=== PATIENT | female | born 1935 | race Caucasian/White ===

== ENCOUNTER → 2017-07-28 11:07 | Outpatient (CLI) | payer MEDICARE, OTHER, SELFPAY ==
[2017-07-28 11:18] LABS: Bacteria 0 SEEN /hpf (None Seen); Mucous, Urine 0 SEEN /hpf (<or=2+); Red Blood Cells-Urine 0 SEEN /hpf (0-5); White Blood Cells 0 SEEN /hpf (0-5)
[2017-07-28 12:15] LABS: Color, Urine Yellow (Yellow); Glucose, Dipstick Normal (Normal); Ketone-Dipstick Negative (Negative); Leukocyte Esterase-Dipstick 25 /ul (Negative); Nitrite-Dipstick Negative (Negative); Occult Blood-Urine Negative /ul (Negative); Protein-Dipstick Negative (Negative); Urine Bilirubin Dipstick Negative (Negative); Urine Clarity Clear (Clear); Urine Urobilinogen Normal (Normal)
[2017-07-28 12:31] LABS: Squamous Epithelial Cells - UA 0-5 SEEN /hpf (5-10)
[2017-07-28 12:32] LABS: Hemoglobin A1c 5.5 % (4.2-6.3)
[2017-07-28 12:52] LABS: Absolute Lymphocyte Count 3.28 X10^3/ul (0.83-4.51); Absolute Neutrophil Count 4.5 X10^3/uL (2.0-7.7); Basophil# 0.07 X10^3/uL; Basophil% 0.8 % (0-1); Eosinophil# 0.08 X10^3/uL; Eosinophils% 0.9 % (0-5); Hematocrit 37.1 % (37-47); Lymphocyte # 3.28 X10^3/ul (4.0); Mean Corp Hgb Conc 32.3 g/gl (32-36); Mean Corpuscular Hgb 31.3 pg (27.0-32.0); Mean Corpuscular Volume 96.6 fL (81-99); Mean Platelet Vol. 11.5 fl (6.2-12.0); Monocyte# 1.12 X10^3/uL; Monocyte% 12.3 % (0-10); Neutrophil # 4.53 X10^3/uL (2.7-7.7); Neutrophil % 49.8 % (47-70); Platelet Count 313 K/mm3 (150-450); RBC Distribution Width CV 21.3 % (11.6-14.6); RBC Distribution Width SD 76.2 fl (35.1-43.9); Red Blood Count 3.84 M/mm3 (4.2-5.4); White Blood Count 9.1 K/mm3 (4.4-11.0)
[2017-07-28 12:53] LABS: Differential Indicated SCAN CRITERIA MET; POSITIVE COUNT NO; POSITIVE DIFFERENTIAL NO; POSITIVE MORPHOLOGY YES
[2017-07-28 13:05] LABS: ALB/GLOB Ratio 1.5 RATIO (0.9-2.4); AST(SGOT) 14 U/L (15-37); Alanine Aminotransfer ALT/SGPT 21 U/L (13-56); Albumin, Serum 4.2 g/dL (3.2-5.0); Alkaline Phosphatase 85 U/L (45-117); Anion Gap 8 (5-15); BUN 12 mg/dL (7-18); BUN/Creat Ratio 20.7 RATIO (10-20); Calcium,Total 9.1 mg/dL (8.5-10.1); Chloride 104 mmol/L (98-107); Cholesterol 151 mg/dL (200); Creatinine, Serum 0.58 mg/dL (0.55-1.02); EST Glomerular Filtration Rate 106 mL/min (>60); Est Glom Filt Rate - Afr Amer 129 mL/min (>60); Globulin 2.8 g/dL (2.2-4.2); Glucose 96 mg/dL (74-106); High Density Lipoprotein 65 mg/dL; Potassium 3.8 mmol/L (3.5-5.1); Sodium Level 139 mmol/L (136-145); T4 Free Direct 1.34 ng/dL (0.76-1.46); Thyroid Stim Hormone (TSH) 2.52 uIU/mL (0.358-3.74); Triglycerides 64 mg/dL; Very Low Density Lipoprotein 13 mg/dL (5-40)
[2017-07-28 13:08] LABS: Anisocytosis 1+
[2017-07-28 14:30] LABS: Bilirubin, Direct 0.28 mg/dL (0.00-0.30)
== END ==
PROVIDERS: Visit Provider Family Medicine
DX: Z13.220 Encounter for screening for lipoid disorders (principal); E80.6 Other disorders of bilirubin metabolism; I10 Essential (primary) hypertension; E04.1 Nontoxic single thyroid nodule; R73.02 Impaired glucose tolerance (oral)
CPT/HCPCS: 36415; 80053; 80061; 81001; 82247; 82248; 83036; 84439; 84443; 85025

== ENCOUNTER → 2017-08-02 09:43 | Outpatient (CLI) | payer MEDICARE, OTHER, SELFPAY ==
--- NOTE | 2017-08-02 10:07 | US_ITS ---
US Thyroid (eg thyroid, parathyroid, parotid) INDICATION: NODULE COMPARISON: None TECHNIQUE: Ultrasonographic grayscale and Doppler investigation of the thyroid gland FINDINGS: The right lobe measures 4.4 x 1.7 x 1.4 cm. There is a 2.3 x 1.3 x 1.6 cm partially solid partially cystic nodule seen in the midpole region of the right lobe. The isthmus measures 1.5 mm in thickness and is unremarkable. The left lobe of the thyroid measures 3.9 x 1 x 0.8 cm and contains a 3 mm partially cystic partially solid nodule in the central portion. No abnormal calcifications are seen. US/Thyroid IMPRESSION: Bilateral thyroid nodules, right thyroid nodule is partially cystic partially solid and measures 2.3 x 1.3 x 1.6 cm. Left thyroid nodule is partially cystic and partially solid and measures 3 mm in diameter. Nuclear medicine thyroid uptake scan may be helpful for further evaluation of the right thyroid nodule. at 2007 Reported and signed by: Mayra Fuentes MD Electronically Signed: Mayra Fuentes MD at 19:05 EST Tel , Service support ,
--- NOTE | 2017-08-02 10:08 | HPBD_ITS ---
STUDY: DUAL ENERGY X-RAY ABSORPTIOMETRY / DXA REASON FOR EXAM: Female, 82 years old. The patient is postmenopausal. Loss of height. TECHNIQUE: Bone Mineral Density (BMD) measurements of lumbar spine and bilateral hips were obtained. COMPARISON: Comparison is made with prior study dated November 10, 2000. FINDINGS: Lumbar Spine (L1-L4): g/cm2 (1.378) / T-score (1.7) / Z-score (3.5) Findings are suggestive of normal bone density with a low fracture risk. Left Femur Total: g/cm2 (0.899) / T-score (-0.9) / Z-score (1.1) Left Femoral Neck: g/cm2 (0.801) / T-score (-1.7) / Z-score (0.4) Right Femur Total: g/cm2 (0.906) / T-score (-0.8) / Z-score (1.2) Right Femoral Neck: g/cm2 (0.87 to) / T-score (-1.2) / Z-score (1.0) The T-Scores on the most recent prior examination were: Lumbar Spine (L1-L4): There has been worsening of bone density since the previous examination. Left Femur Total: which represents a worsening of 16.5%. HPBD/Dexa Bone Density Study (HP) IMPRESSION: The patient is considered osteopenic as outlined below according to World [place] Organization (WHO) criteria with a moderate fracture risk. There has been worsening of bone density since the previous examination. Reference Information: The T-score is the number of standard deviations above or below the standard which is normal for young adults at their peak bone mineral density. The World Health Organization (WHO) interprets the T-scores as follows: Above -1 Normal bone density Between -1 and -2.5 Osteopenia Equal to / or below -2.5 Osteoporosis As a practical clinical guideline, osteopenia may be graded as follows: Mild -1 through -1.5 Moderate -1.6 through -2.0 Severe -2.1 through -2.4 The Z-score is the number of standard deviations above or below age-matched controls. A Z-score of less than -1.5 would be considered abnormal. References: 1. NIH Osteoporosis and Related Bone Diseases http://www.osteo.org 2. International Society for Clinical Densitometry http://www.iscd.org 3. National Osteoporosis Foundation http://www.nof.org Electronically Signed: Kevin Law MD at 11:01 EST Tel [phone], Service support ,
== END ==
PROVIDERS: Family Provider Family Medicine; PCP Family Medicine; Visit Provider Family Medicine
DX: M85.80 Other specified disorders of bone density and structure, unspecified site (principal); Z78.0 Asymptomatic menopausal state; E04.1 Nontoxic single thyroid nodule
CPT/HCPCS: 76536; 77080

== ENCOUNTER → 2017-08-18 12:43 | Outpatient (CLI) | payer MEDICARE, OTHER, SELFPAY ==
--- NOTE | 2017-08-18 12:47 | ECHOD_ITS ---
Reason For Study: MURMUR Procedure This was a 2D Doppler, Color Flow transthoracic echocardiogram. Exam performed in department. Left Ventricle Normal size and thickness. The estimated ejection fraction is 65 %. Stage 2 diastolic dysfunction. No regional wall motion abnormalities noted. Right Ventricle Normal size and thickness. Normal systolic function. Atria The left atrium is moderately enlarged. Normal right atrium. Normal atrial septum. Mitral Valve Mild diffuse mitral valve thickening. Mild (1+) mitral valve insufficiency. Tricuspid Valve Normal tricuspid valve. Mild (1+) tricuspid valve insufficiency. Right ventricular systolic pressure estimated to be 47 mmHg. Moderate pulmonary hypertension. Aortic Valve Trisinus/trileaflet aortic valve. Mild diffuse aortic valve thickening. Pulmonic Valve Normal pulmonic valve. Trivial pulmonic valve insufficiency. Great Vessels Normal aortic root. Normal arch. Normal inferior vena cava. Inferior vena cava collapse with sniff. Pericardium/Pleural No pericardial effusion. MMode/2D Measurements & Calculations LVIDd: 4.9 cm IVSd: 0.93 cm LVOT diam: 2.0 cm LVIDs: 3.1 cm LVPWd: 0.98 cm LVOT area: 3.1 cm2 RVDd: 3.5 cm FS: 35.9 % LA dimension: 3.6 cm LAV(MOD-bp): 83.8 ml LA A4 area: 24.3 cm2 LAV(MOD-bp) Indexed: 45.8 ml/m2 LAV(MOD-sp2): 81.9 ml LAV(MOD-sp4): 81.7 ml RA A4 area: 16.3 cm2 Time Measurements MV dec time: 0.18 sec Doppler Measurements & Calculations MV E max satish: 126.7 cm/sec Lat Peak E' Satish: 8.2 cm/sec Med Peak E' Satish: 10.3 cm/sec MV A max satish: 81.7 cm/sec E/E' lat: 15.5 E/E' med: 12.3 MV E/A: 1.6 Ao V2 max: 156.0 cm/sec LV V1 max: 140.5 cm/sec PA V2 max: 97.1 cm/sec Ao max P.7 mmHg LV V1 max P.9 mmHg AGNIESZKA(V,D): 2.8 cm2 PI dec slope: 133.3 cm/sec2 TR max satish: 319.6 cm/sec TR max P.9 mmHg Interpretation Summary The estimated ejection fraction is 65 %. Stage 2 diastolic dysfunction. The left atrium is moderately enlarged. Mild (1+) mitral valve insufficiency. Mild (1+) tricuspid valve insufficiency. Right ventricular systolic pressure estimated to be 47 mmHg. Moderate pulmonary hypertension. There is no comparison study available. Ordering Physician: Blue Lambert Referring Physician: Blue Lambert Performed By: Cecilia Dorantes RDCS, RVT
== END ==
PROVIDERS: Family Provider Family Medicine; PCP Family Medicine; Visit Provider Family Medicine
DX: R01.1 Cardiac murmur, unspecified (principal); E04.1 Nontoxic single thyroid nodule; M85.80 Other specified disorders of bone density and structure, unspecified site
CPT/HCPCS: 93306

== ENCOUNTER → 2017-08-24 18:45 | Outpatient (CLI) | payer MEDICARE, OTHER, SELFPAY ==
--- NOTE | 2017-08-24 10:00 | FLU_PTH ---
PATIENT: ANANTH DAVE LOC: [facility] U#:[id number] AGE/SX: 89/F ROOM: RE08/24/[address]: Dr. Agustin Epstein MD : [id number] BED: DIS: SPEC #: [id number] RECD: 08/24/17 17:51 STATUS: LUZMA HUMBERTO #: [id number] DEUCE: 08/24/17 10:[address]: Agustin Epstein DEPT: CYTOLOGY RECD BY: Peterson Busch ENTERED: 08/25/17 09:22 SP TYPE: Fluid OTHR DR: Dr. Blue Lambert MD Tissues: A - Thyroid gland, NOS B - Thyroid gland, NOS Procedures: Pap Stain (control) Special Stain Group II Surgery Specimen Level IV Cell Block Cytospin Fluid Cytology Other HEADER OPERATION: Right thyroid FNA PRE-OP DIAGNOSIS: Right thyroid nodule TISSUE SUBMITTED: A - Right thyroid FNA, fluid for cytology, B ? Slides (4) DIAGNOSIS CYTOLOGY A. Right thyroid nodule fluid for cytology (Cytospin and Cytoblock). Rare benign follicular cells and macrophages are noted. Bloody specimen. B. Right thyroid nodule, FNA (smear): Consistent with benign follicular nodule. See cytology study and comment. SALOME:jaison 08/26/17 COMMENT Correlation with clinical, radiologic findings and appropriate followup are necessary. CYTOLOGY STUDY Slides are reviewed. The specimen is adequate for evaluation. The specimen consists of benign follicular cells. Significant amount of colloid is not seen. CYTOLOGY GROSS A - Received is 2 ml of thick, cloudy, red fluid labeled with the patient's name and and designated per the requisition as right thyroid. Submitted for cytology preparation including cell block. B - Received are four smears labeled with the patient's name and designated per the requisition as right thyroid. Submitted for staining. / 08/25/17 TC: 5 CPT: 08492, 69346, 67235
== END ==
PROVIDERS: Family Provider Family Medicine; PCP Family Medicine; Visit Provider Surgery
DX: E04.1 Nontoxic single thyroid nodule (principal)
CPT/HCPCS: 88108; 88161; 88305; 88313

== ENCOUNTER → 2018-01-13 08:10 | Outpatient (CLI) | payer MEDICARE, OTHER, SELFPAY ==
[2018-01-13 10:43] LABS: Hematocrit 34.5 % (37-47); Hemoglobin 11.6 g/dl (12.0-15.0); Mean Corp Hgb Conc 33.6 g/gl (32-36); Mean Corpuscular Hgb 32.5 pg (27.0-32.0); Mean Corpuscular Volume 96.6 fL (81-99); Mean Platelet Vol. 11.8 fl (6.2-12.0); Platelet Count 289 K/mm3 (150-450); RBC Distribution Width CV 22.1 % (11.6-14.6); RBC Distribution Width SD 77.5 fl (35.1-43.9); Red Blood Count 3.57 M/mm3 (4.2-5.4); White Blood Count 7.6 K/mm3 (4.4-11.0)
[2018-01-13 10:49] LABS: Scan Indicated on CBC? Y/N YES- FLAGS NOTED
[2018-01-13 10:56] LABS: ALB/GLOB Ratio 1.4 RATIO (0.9-2.4); AST(SGOT) 14 U/L (15-37); Alanine Aminotransfer ALT/SGPT 25 U/L (13-56); Albumin, Serum 3.9 g/dL (3.2-5.0); Alkaline Phosphatase 66 U/L (45-117); Anion Gap 6 (5-15); BUN 12 mg/dL (7-18); BUN/Creat Ratio 17.8 RATIO (10-20); Bilirubin, Direct 0.42 mg/dL (0.00-0.30); Calcium,Total 8.8 mg/dL (8.5-10.1); Chloride 106 mmol/L (98-107); Creatinine, Serum 0.68 mg/dL (0.55-1.02); EST Glomerular Filtration Rate 89 mL/min (>60); Est Glom Filt Rate - Afr Amer 108 mL/min (>60); Globulin 2.7 g/dL (2.2-4.2); Glucose 119 mg/dL (74-106); Magnesium 2.4 mg/dL (1.6-2.6); Protein, Total 6.6 g/dL (6.4-8.2); Sodium Level 141 mmol/L (136-145); Thyroid Stim Hormone (TSH) 3.64 uIU/mL (0.358-3.74)
== END ==
PROVIDERS: Family Provider Family Medicine; PCP Family Medicine; Visit Provider Family Medicine
DX: E04.2 Nontoxic multinodular goiter (principal); I10 Essential (primary) hypertension; E80.6 Other disorders of bilirubin metabolism
CPT/HCPCS: 36415; 80053; 82248; 83735; 84443; 85027

== ENCOUNTER → 2018-01-17 15:10 | Outpatient (CLI) | payer MEDICARE, OTHER, SELFPAY ==
[2018-01-17 17:41] LABS: Absolute Lymphocyte Count 4.47 X10^3/ul (0.83-4.51); Absolute Neutrophil Count 6.5 X10^3/uL (2.0-7.7); Basophil# 0.06 X10^3/uL; Basophil% 0.5 % (0-1); Eosinophil# 0.18 X10^3/uL; Eosinophils% 1.4 % (0-5); Hematocrit 33.5 % (37-47); Hemoglobin 11.2 g/dl (12.0-15.0); Lymphocyte # 4.47 X10^3/ul (4.0); Mean Corp Hgb Conc 33.4 g/gl (32-36); Mean Corpuscular Hgb 32.3 pg (27.0-32.0); Mean Corpuscular Volume 96.5 fL (81-99); Mean Platelet Vol. 11.8 fl (6.2-12.0); Monocyte# 1.56 X10^3/uL; Monocyte% 12.2 % (0-10); Neutrophil # 6.47 X10^3/uL (2.7-7.7); Neutrophil % 50.6 % (47-70); Platelet Count 291 K/mm3 (150-450); RBC Distribution Width CV 21.8 % (11.6-14.6); RBC Distribution Width SD 76.5 fl (35.1-43.9); Red Blood Count 3.47 M/mm3 (4.2-5.4); White Blood Count 12.8 K/mm3 (4.4-11.0)
[2018-01-17 17:42] LABS: Differential Indicated SCAN CRITERIA MET; POSITIVE COUNT NO; POSITIVE DIFFERENTIAL YES; POSITIVE MORPHOLOGY YES
[2018-01-17 17:59] LABS: Hemoglobin A1c 5.3 % (4.2-6.3)
[2018-01-17 18:03] LABS: AST(SGOT) 14 U/L (15-37); Alanine Aminotransfer ALT/SGPT 25 U/L (13-56); Alkaline Phosphatase 82 U/L (45-117); Ferritin 146 ng/mL (8-252); Globulin 2.7 g/dL (2.2-4.2); Iron Binding Capacity,Total 271 ug/dL (250-450); Protein, Total 6.7 g/dL (6.4-8.2)
[2018-01-17 18:05] LABS: Differential Comment SCANNED
[2018-01-18 09:04] LABS: Vitamin B12 263 pg/mL (211-911)
== END ==
PROVIDERS: Family Provider Family Medicine; PCP Family Medicine; Visit Provider Family Medicine
DX: D64.9 Anemia, unspecified (principal); E80.6 Other disorders of bilirubin metabolism; R73.09 Other abnormal glucose
CPT/HCPCS: 36415; 80076; 82607; 82728; 82746; 83036; 83550; 85025

== ENCOUNTER → 2018-05-12 08:54 | Outpatient (CLI) | payer MEDICARE, OTHER, SELFPAY ==
[2018-05-12 10:19] LABS: Absolute Lymphocyte Count 2.74 X10^3/ul (0.83-4.51); Absolute Neutrophil Count 4.2 X10^3/uL (2.0-7.7); Basophil# 0.05 X10^3/uL; Basophil% 0.6 % (0-1); Eosinophil# 0.08 X10^3/uL; Hematocrit 36.2 % (37-47); Hemoglobin 11.9 g/dl (12.0-15.0); Lymphocyte # 2.74 X10^3/ul (4.0); Mean Corp Hgb Conc 32.9 g/gl (32-36); Mean Corpuscular Hgb 31.6 pg (27.0-32.0); Mean Corpuscular Volume 96.3 fL (81-99); Mean Platelet Vol. 11.4 fl (6.2-12.0); Monocyte# 1.03 X10^3/uL; Monocyte% 12.8 % (0-10); Neutrophil # 4.15 X10^3/uL (2.7-7.7); Neutrophil % 51.5 % (47-70); Platelet Count 327 K/mm3 (150-450); RBC Distribution Width CV 21.8 % (11.6-14.6); RBC Distribution Width SD 78.6 fl (35.1-43.9); Red Blood Count 3.76 M/mm3 (4.2-5.4); White Blood Count 8.1 K/mm3 (4.4-11.0)
[2018-05-12 10:20] LABS: Differential Indicated SCAN CRITERIA MET; POSITIVE COUNT NO; POSITIVE DIFFERENTIAL NO; POSITIVE MORPHOLOGY YES
[2018-05-12 10:41] LABS: Vitamin D,25 Hydroxy 33.6 ng/mL (29.95-100.01)
[2018-05-12 10:50] LABS: Anisocytosis 2+; Differential Comment SCANNED; Hypochromasia 1+; Macrocytosis 1+; Microcytosis 1+; Target Cells 1+
[2018-05-12 10:56] LABS: AST(SGOT) 13 U/L (15-37); Alanine Aminotransfer ALT/SGPT 23 U/L (13-56); Alkaline Phosphatase 73 U/L (45-117); Anion Gap 10 (5-15); BUN 13 mg/dL (7-18); BUN/Creat Ratio 20.8 RATIO (10-20); Bilirubin, Direct 0.41 mg/dL (0.00-0.30); Chloride 107 mmol/L (98-107); Creatinine, Serum 0.62 mg/dL (0.55-1.02); EST Glomerular Filtration Rate 97 mL/min (>60); Est Glom Filt Rate - Afr Amer 118 mL/min (>60); Globulin 2.7 g/dL (2.2-4.2); Glucose 121 mg/dL (74-106); Potassium 3.9 mmol/L (3.5-5.1); Protein, Total 6.7 g/dL (6.4-8.2); Sodium Level 142 mmol/L (136-145)
--- OUTSIDE RECORDS SUMMARY | 2018-06-27 22:03 | XMS RPT_ITS ---
:1935 Author Organization OHIP Support Name Relationship Address Phone R Unavailable Unavailable Unavailable SONAL, CRISTI Unavailable [address] + [place] [address] R Unavailable Unavailable Unavailable SONAL, CRISTI Unavailable [address] + [place] [address] R Unavailable Unavailable Unavailable SONAL, CRISTI Unavailable [address] + [place] [address] R Unavailable Unavailable Unavailable SONAL, CRISTI Unavailable [address] + [place] [address] R Unavailable Unavailable Unavailable SONAL, CRISTI Unavailable [address] + [place] [address] R Unavailable Unavailable Unavailable SONAL, CRISTI Unavailable [address] + [place] [address] R Unavailable Unavailable Unavailable SONAL, CRISTI Unavailable [address] + [place] [address] R Unavailable Unavailable Unavailable SONAL, CRISTI Unavailable [address] + [place] [address] R Unavailable Unavailable Unavailable SONAL, CRISTI Unavailable [address] + [place] [address] CHARLEE DAVE Unavailable [address] + [place] [address] R Unavailable Unavailable Unavailable SONAL, CRISTI Unavailable [address] + [place] [address] Care Team Providers Name Role Phone Blue Lambert Attending Unavailable Blue Lambert Primary Care Unavailable Blue Lambert Attending Unavailable Blue Lambert Attending Unavailable SchBlue ro Primary Care Unavailable TeteAgustin Attending Unavailable SchinBlue lópez Referring Unavailable SchinBlue lópez Primary Care Unavailable SchBlue ro Attending Unavailable SchBlue ro Referring Unavailable SchBlue ro Primary Care Unavailable Cebul, Agustin Attending Unavailable Schinrene, Blue E Referring Unavailable SchBlue ro Primary Care Unavailable Cebul, Agustin Attending Unavailable SchBlue ro Primary Care Unavailable CeAgustin draper Referring Unavailable Douglas Vera Attending Unavailable SchinBlue lópez Referring Unavailable SchinBlue lópez Attending Unavailable SchinBlue lópez Primary Care Unavailable SchBlue ro Attending Unavailable Schinrene, Blue Jacques Primary Care Unavailable PROBLEMS PROBLEMS DATE TYPE CONDITION / CODE ATTENDING STATUS SOURCE 08/24/2017 Unknown E04.1 - Nontoxic Tete Agustin Active [place] single thyroid [facility] nodule / Hospital E04.1(ICD-10) Repository 09/19/2017 Unknown R01.1 - Cardiac Douglas Vera Active [place] murmur, Community unspecified / Hospital R01.1(ICD-10) Repository 08/04/2017 Unknown 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 - Other Blue Lambert [place] 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 and Repository structure, unspecified site / M85.80(ICD-10) PROCEDURES PROCEDURES No Procedure Records FoundRESULTS RESULTS CBC W/DIFF, AUTOMATED Collected: 05/12/2018 Status: F Source: [place] [facility] TYPE CODE TESTS RESULT OUT OF RANGE REFERENCE UNITS LAB L100.1000 4.4-11.0 K/mm3 Normal WBC 8.1 LAB L100.1200 4.2-5.4 M/mm3 Low RBC 3.76 LAB L100.1300 12.0-15.0 g/dl Low HGB 11.9 LAB L100.1400 37-47 % Low HCT 36.2 LAB L100.1500 81-99 fL Normal MCV 96.3 LAB L100.1600 27.0-32.0 pg Normal MCH 31.6 LAB L100.1700 32-36 g/gl Normal MCHC 32.9 LAB L100.1810 11.6-14.6 % High RDW CV 21.8 LAB L100.1820 35.1-43.9 fl High RDW SD 78.6 LAB L100.1900 150-450 K/mm3 Normal PLT 327 LAB L100.2000 6.2-12.0 fl Normal MPV 11.4 LAB L100.2100 47-70 % Normal NEUT% 51.5 LAB L100.2200 19-41 % Normal LY% 34.0 LAB L100.2300 0-10 % High MONO% 12.8 LAB L100.2400 0-5 % Normal EO% 1.0 LAB L100.2500 0-1 % Normal BASO% 0.6 LAB L100.2550 0.0-0.9 % Normal IM GRAN % 0.100 Result Comment: IG% - Immature Granulocytes (promyelocytes, myelocytes and metamyelocytes) > 1% indicates that a LEFT SHIFT is Present. LAB L100.2620 2.0-7.7 X10 3/uL Absolute Neut Normal 4.2 LAB L100.2720 0.83-4.51 X10 3/ul Absolute Lymph Normal 2.74 LAB L100.4500 SMEAR COMMENT Normal SCANNED LAB L100.7300 ANISO Normal 2+ LAB L100.7600 HYPOCHROMASIA Normal 1+ LAB L100.7700 MICROCYTES Normal 1+ LAB L100.7800 MACROCYTE Normal 1+ LAB L100.8600 TARGET CELLS Normal 1+ Performed By: #### L100.0100 #### [facility] [address] [place], [place], [address] VITAMIN D,25 HYDROXY Collected: 05/12/2018 Status: F Source: [place] 8:56 AM [facility] REPOSITORY TYPE CODE TESTS RESULT OUT OF RANGE REFERENCE UNITS LAB L506.1000 29.95-100.01 ng/mL Normal Vitamin D 33.6 25-OH Result Comment: Vitamin D 25(OH) Status Range Deficiency <20 ng/mL (50nmol/L) Insuffciency 20 - 30 ng/mL (50 - 75 nmol/L) Sufficiency 30 - 100 ng/mL (75 - 250 nmol/L) Toxicity >100 ng/mL (>250 nmol/L) Performed By: #### L506.1000 #### [facility] [address] [place], [place], [address] BASIC METABOLIC Collected: 05/12/2018 Status: F Source: [place] PROFILE (BMP) 8:56 AM [facility] REPOSITORY TYPE CODE TESTS RESULT OUT OF RANGE REFERENCE UNITS LAB L501.0100 74-106 mg/dL High GLU 121 Result Comment: Fasting Glucose result from 100 to 125 mg/dL suggests IMPAIRED HOMEOSTASIS per A.D.A. criteria. Please note revised GLUCOSE reference range effective 2017. LAB L501.1000 7-18 mg/dL Normal BUN 13 LAB L501.1100 0.55-1.02 mg/dL Normal CREAT,SERUM 0.62 Result Comment: The validity of the calculated GFR AND GFRAA in patients over 70 years has not been determined. Clinical correlation is essential. LAB L501.1110 >60 mL/min Normal EST GFR 97 Result Comment: Non- GFR Calc LAB L501.1115 >60 mL/min Normal EST GFR - AA 118 Result Comment: GFR Calc LAB L501.1300 10-20 RATIO High BUN/CRE 20.8 LAB L501.2200 8.5-10.1 mg/dL CA Normal 9.0 LAB L501.5300 136-145 mmol/L NA Normal 142 LAB L501.5600 3.5-5.1 mmol/L K Normal 3.9 LAB L501.5900 98-107 mmol/L CL Normal 107 LAB L501.6100 21.0-32.0 mmol/L Normal CO2 25.0 LAB L501.6200 5-15 Normal GAP 10 Performed By: #### L500.2500, L500.3400 #### [facility] [address] [place], [place] [address]all [facility] [place], [place], [address] LIVER PROFILE Collected: 05/12/2018 Status: F Source: [place] 8:56 AM [facility] REPOSITORY TYPE CODE TESTS RESULT OUT OF RANGE REFERENCE UNITS LAB L501.1500 6.4-8.2 g/dL Normal T PROT 6.7 LAB L501.1800 3.2-5.0 g/dL Normal ALB 4.0 LAB L501.1950 2.2-4.2 g/dL Normal GLOB 2.7 LAB L501.4100 15-37 U/L Low AST 13 LAB L501.4305 45-117 U/L Normal ALK P 73 LAB L501.4405 13-56 U/L Normal ALT 23 LAB L501.4600 0.20-1.00 mg/dL High T BILI 2.90 LAB L501.4700 0.00-0.30 mg/dL High D BILI 0.41 Performed By: #### L500.2500, L500.3400 #### [facility] [address], [address] CBC W/DIFF, AUTOMATED Collected: 01/17/2018 Status: F Source: [place] 3:12 PM [facility] REPOSITORY Order Comment: Order Date: 01/17/18 Order Info: 0184-1 - CBCD TYPE CODE TESTS RESULT OUT OF RANGE REFERENCE UNITS LAB L100.1000 4.4-11.0 K/mm3 High WBC 12.8 LAB L100.1200 4.2-5.4 M/mm3 Low RBC 3.47 LAB L100.1300 12.0-15.0 g/dl Low HGB 11.2 LAB L100.1400 37-47 % Low HCT 33.5 LAB L100.1500 81-99 fL Normal MCV 96.5 LAB L100.1600 27.0-32.0 pg High MCH 32.3 LAB L100.1700 32-36 g/gl Normal MCHC 33.4 LAB L100.1810 11.6-14.6 % High RDW CV 21.8 LAB L100.1820 35.1-43.9 fl High RDW SD 76.5 LAB L100.1900 150-450 K/mm3 Normal PLT 291 LAB L100.2000 6.2-12.0 fl Normal MPV 11.8 LAB L100.2100 47-70 % Normal NEUT% 50.6 LAB L100.2200 19-41 % Normal LY% 35.0 LAB L100.2300 0-10 % High MONO% 12.2 LAB L100.2400 0-5 % Normal EO% 1.4 LAB L100.2500 0-1 % Normal BASO% 0.5 LAB L100.2550 0.0-0.9 % Normal IM GRAN % 0.300 Result Comment: IG% - Immature Granulocytes (promyelocytes, myelocytes and metamyelocytes) > 1% indicates that a LEFT SHIFT is Present. LAB L100.2620 2.0-7.7 X10 3/uL Normal Absolute Neut 6.5 LAB L100.2720 0.83-4.51 X10 3/ul Normal Absolute Lymph 4.47 LAB L100.4500 Normal SMEAR COMMENT SCANNED Result Comment: 1+ ANISOCYTOSIS Performed By: #### L100.0100, L501.9985, L500.3400, L503.6075, L503.6550, L506.0250, L503.0105 #### [facility] [address] [place], [address] HEMOGLOBIN A1C Collected: 01/17/2018 Status: F Source: [place] 3:12 PM [facility] REPOSITORY Order Comment: Order Date: 01/17/18 Order Info: 4548-4 - A1C TYPE CODE TESTS RESULT OUT OF RANGE REFERENCE UNITS LAB L501.9985 4.2-6.3 % Normal HGB A1C 5.3 Performed By: #### L100.0100, L501.9985, L500.3400, L503.6075, L503.6550, L506.0250, L503.0105 #### [facility] [address] [place], [address] LIVER PROFILE Collected: 01/17/2018 Status: F Source: [place] 3:12 PM [facility] REPOSITORY Order Comment: Order Date: 01/17/18 Order Info: 0788-1 - LIVER Order Info: 2500-7 - TIBC Order Info: 2276-4 - ANGEL Order Info: 2284-8 - FOLS Is Patient Taking Vitamins or Folic Acid Supplements? N TYPE CODE TESTS RESULT OUT OF RANGE REFERENCE UNITS LAB L501.1500 6.4-8.2 g/dL Normal T PROT 6.7 LAB L501.1800 3.2-5.0 g/dL Normal ALB 4.0 LAB L501.1950 2.2-4.2 g/dL Normal GLOB 2.7 LAB L501.4100 15-37 U/L Low AST 14 LAB L501.4305 45-117 U/L Normal ALK P 82 LAB L501.4405 13-56 U/L Normal ALT 25 LAB L501.4600 0.20-1.00 mg/dL High T BILI 1.50 LAB L501.4700 0.00-0.30 mg/dL Normal D BILI 0.30 Performed By: #### L100.0100, L501.9985, L500.3400, L503.6075, L503.6550, L506.0250, L503.0105 #### [facility] [address] [place], [address] (254) IRON BINDING Collected: 01/17/2018 Status: F Source: [place] 3:12 PM [facility] REPOSITORY Order Comment: Order Date: 01/17/18 Order Info: 0788-1 - LIVER Order Info: 2499-7 - TIBC Order Info: 2275-08 - ANGEL Order Info: 228-8 - FOLS Is Patient Taking Vitamins or Folic Acid Supplements? N TYPE CODE TESTS RESULT OUT OF RANGE REFERENCE UNITS LAB L503.6075 250-450 ug/dL Normal TIBC 271 Performed By: #### L100.0100, L501.9985, L500.3400, L503.6075, L503.6550, L506.0250, L503.0105 #### [facility] [address] [place], [address] FERRITIN Collected: 01/17/2018 Status: F Source: [place] 3:12 PM [facility] REPOSITORY Order Comment: Order Date: 01/17/18 Order Info: 0788-1 - LIVER Order Info: 2499-7 - TIBC Order Info: 2275-08 - ANGEL Order Info: 2283-8 - FOLS Is Patient Taking Vitamins or Folic Acid Supplements? N TYPE CODE TESTS RESULT OUT OF RANGE REFERENCE UNITS LAB L503.6550 8-252 ng/mL Normal FERRITIN 146 Performed By: #### L100.0100, L501.9985, L500.3400, L503.6075, L503.6550, L506.0250, L503.0105 #### [facility] [address] [place], [address] FOLATES, (FOLIC ACID) Collected: 01/17/2018 Status: F Source: [place] 3:12 PM [facility] REPOSITORY Order Comment: Order Date: 01/17/18 Order Info: 0788-1 - LIVER Order Info: 2500-7 - TIBC Order Info: 2276-4 - ANGEL Order Info: 2284-8 - FOLS Is Patient Taking Vitamins or Folic Acid Supplements? N TYPE CODE TESTS RESULT OUT OF RANGE REFERENCE UNITS LAB L506.0250 3.1-55.4 ng/mL Normal FOLATES 14.50 Performed By: #### L100.0100, L501.9985, L500.3400, L503.6075, L503.6550, L506.0250, L503.0105 #### [facility] [address] [place], [place], [address] VITAMIN B12 Collected: 01/17/2018 Status: F Source: [place] 3:12 PM [facility] REPOSITORY Order Comment: Order Date: 01/17/18 Order Info: 2132-9 - B12 TYPE CODE TESTS RESULT OUT OF RANGE REFERENCE UNITS LAB L503.0105 211-911 pg/mL Normal Vitamin B12 263 Performed By: #### L100.0100, L501.9985, L500.3400, L503.6075, L503.6550, L506.0250, L503.0105 #### [facility] [address] [facility]. [place], [place], [address] CBC-COMPLETE BLOOD CNT Collected: 01/13/2018 Status: F Source: [place] NO DIFF 8:11 AM [facility] REPOSITORY Order Comment: Order Date: 01/12/18 Order Info: 20529-6 - CBC TYPE CODE TESTS RESULT OUT OF RANGE REFERENCE UNITS LAB L100.1000 4.4-11.0 K/mm3 Normal WBC 7.6 LAB L100.1200 4.2-5.4 M/mm3 Low RBC 3.57 LAB L100.1300 12.0-15.0 g/dl Low HGB 11.6 LAB L100.1400 37-47 % Low HCT 34.5 LAB L100.1500 81-99 fL Normal MCV 96.6 LAB L100.1600 27.0-32.0 pg High MCH 32.5 LAB L100.1700 32-36 g/gl Normal MCHC 33.6 LAB L100.1810 11.6-14.6 % High RDW CV 22.1 LAB L100.1820 35.1-43.9 fl High RDW SD 77.5 LAB L100.1900 150-450 K/mm3 Normal PLT 289 LAB L100.2000 6.2-12.0 fl Normal MPV 11.8 Performed By: #### L100.0500, L500.4050, L501.5200, L501.9520, L100.4500 #### [facility] [address] [place], [address] COMPREHENSIVE METABOLIC Collected: 01/13/2018 Status: F Source: [facility] 8:11 AM [facility] REPOSITORY Order Comment: Order Date: 01/12/18 Order Info: 0786-1 - CMP Order Info: 73849-8 - BIDTI Order Info: 86481-6 - MG Order Info: 3016-3 - TSH TYPE CODE TESTS RESULT OUT OF RANGE REFERENCE UNITS LAB L501.0100 74-106 mg/dL High GLU 119 Result Comment: Fasting Glucose result from 100 to 125 mg/dL suggests IMPAIRED HOMEOSTASIS per A.D.A. criteria. Please note revised GLUCOSE reference range effective 2017. LAB L501.1000 7-18 mg/dL Normal BUN 12 LAB L501.1100 0.55-1.02 mg/dL Normal CREAT,SERUM 0.68 Result Comment: The validity of the calculated GFR AND GFRAA in patients over 70 years has not been determined. Clinical correlation is essential. LAB L501.1110 >60 mL/min Normal EST GFR 89 Result Comment: Non- GFR Calc LAB L501.1115 >60 mL/min Normal EST GFR - AA 108 Result Comment: GFR Calc LAB L501.1300 10-20 RATIO Normal BUN/CRE 17.8 LAB L501.1500 6.4-8.2 g/dL T Normal PROT 6.6 LAB L501.1800 3.2-5.0 g/dL Normal ALB 3.9 LAB L501.1950 2.2-4.2 g/dL Normal GLOB 2.7 LAB L501.2000 0.9-2.4 RATIO Normal A/G 1.4 LAB L501.2200 8.5-10.1 mg/dL CA Normal 8.8 LAB L501.4100 15-37 U/L Low AST 14 LAB L501.4305 45-117 U/L Normal ALK P 66 LAB L501.4405 13-56 U/L Normal ALT 25 LAB L501.4600 0.20-1.00 mg/dL High T BILI 2.80 LAB L501.5300 136-145 mmol/L NA Normal 141 LAB L501.5600 3.5-5.1 mmol/L K Normal 4.0 LAB L501.5900 98-107 mmol/L CL Normal 106 LAB L501.6100 21.0-32.0 mmol/L Normal CO2 29.0 LAB L501.6200 5-15 Normal GAP 6 Performed By: #### L100.0500, L500.4050, L501.5200, L501.9520, L100.4500 #### [facility] [address] [facility]. [place], [place], [address] MAGNESIUM Collected: 01/13/2018 Status: F Source: [place] 8:11 AM [facility] REPOSITORY Order Comment: Order Date: 01/12/18 Order Info: 0786-1 - CMP Order Info: 85581-4 - BIDTI Order Info: 69348-0 - MG Order Info: 3016-3 - TSH TYPE CODE TESTS RESULT OUT OF RANGE REFERENCE UNITS LAB L501.5200 1.6-2.6 mg/dL Normal MG 2.4 Performed By: #### L100.0500, L500.4050, L501.5200, L501.9520, L100.4500 #### [facility] [address] [facility]. [place], [place], [address] THYROID STIM HORMONE Collected: 01/13/2018 Status: F Source: [place] (TSH) 8:11 AM [facility] REPOSITORY Order Comment: Order Date: 01/12/18 Order Info: 0786-1 - CMP Order Info: 15602-0 - BIDTI Order Info: 82661-2 - MG Order Info: 3016-3 - TSH TYPE CODE TESTS RESULT OUT OF RANGE REFERENCE UNITS LAB L501.9520 0.358-3.74 uIU/mL Normal TSH 3.64 Performed By: #### L100.0500, L500.4050, L501.5200, L501.9520, L100.4500 #### [facility] [address] [place], [address] DIFFERENTIAL COMMENT Collected: 01/13/2018 Status: F Source: [place] 8:11 AM [facility] REPOSITORY Order Comment: Order Date: 01/12/18 Order Info: 66748-8 - CBC TYPE CODE TESTS RESULT OUT OF RANGE REFERENCE UNITS LAB L100.4500 Normal SMEAR COMMENT COMMENT Result Comment: SLIDE SCANNED - 1+ ANISO. Performed By: #### L100.0500, L500.4050, L501.5200, L501.9520, L100.4500 #### [facility] [address] [place], [address] BILIRUBIN, DIRECT Collected: 01/13/2018 Status: F Source: [place] 8:11 AM [facility] REPOSITORY Order Comment: Order Date: 01/12/18 Order Info: 0786-1 - CMP Order Info: 45145-9 - BIDTI Order Info: 08855-2 - MG Order Info: 3016-3 - TSH TYPE CODE TESTS RESULT OUT OF RANGE REFERENCE UNITS LAB L501.4700 0.00-0.30 mg/dL High D BILI 0.42 Performed By: #### L501.4700 #### [facility] [address] [place], [address] SURGERY VISIT REPORT Observed: 08/26/2017 Status: F Source: [place] 6:53 PM [facility] REPOSITORY [facility] [address] [place] [address] OFFICE VISIT Date of Service: 08/24/17 MR#: [id number] Acct: [id number] Name: JOLIEANANTH M Rep #: [id number] : 1935 Provider: Agustin Epstein MD Age/Sex: 82/F Location: [facility] Status: Signed with Addenda ADDENDUM by Agustin Epstein MD on 08/26/17 at 1853 Addendum entered and electronically signed by Agustin Epstein MD 08/26/17 18:53: Ultrasound-guided fine aspiration right thyroid nodule This dictation was accidentally removed from the patient's charting Ultrasound-guided dominant nodule right thyroid The patient was taken to procedure room placed on the table. The neck was sterilely prepped draped. Ultrasound was used to identify the nodule of interest. Under ultrasound guidance 1% lidocaine mixed 50-50 with 0.5% Marcaine was used as local anesthetic. A total of 2 cc was used. Initially a 25-gauge needle and then 23-gauge needle was advanced into the lesion. A rapid zlyp-ril-ecyfx motion was performed. Specimen was obtained and smeared out on slides. She tolerated the procedure well. She was given activity wound care instructions. The slides were treated with fixative and submitted for analysis. She will be notified of cytology results as they become available. Agustin Epstein M.D., F.A.C.S. Intake Chief Complaint: bilateral thyroid nodules Allergies amoxicillin [From Trimox] Allergy (Severe, Verified 08/24/17 09:56) throat swelling ciprofloxacin [From Cipro] Adverse Reaction (Verified 08/24/17 09:56) GI upset diphenhydramine [From Benadryl] Adverse Reaction (Verified 08/24/17 09:56) jittery Medications fluticasone 50 mcg/actuation nasal spray,suspension 50 mcg INTRANASAL BID PRN 08/12/17 [History Confirmed 08/24/17] lisinopril 10 mg-hydrochlorothiazide 12.5 mg tablet 1 tab PO QDAY tab 08/12/17 [History Confirmed 08/24/17] metoprolol succinate ER 50 mg tablet,extended release 24 hr 50 mg PO QDAY tab 08/24/17 [History Confirmed 08/24/17] Assessment AND Plan 1. Cystic thyroid nodule E04.1 Plan - Agustin Epstein MD The patient will be notified of cytology results as they become available. Possible consideration for follow-up thyroid ultrasound at 1 year pending results. Agustin Epstein M.D., F.A.C.S. Orders Orders: 08/26/17 1853 <Electronically signed by Agustin Epstein MD> Date Agustin Epstein MD cc: * Signed Intake Intake Visit Reasons: right thyroid FNA Chief Complaint: bilateral thyroid nodules Business Management Professor Required: No Is patient in pain?: No Allergies amoxicillin [From Trimox] Allergy (Severe, Verified 08/24/17 09:56) throat swelling ciprofloxacin [From Cipro] Adverse Reaction (Verified 08/24/17 09:56) GI upset diphenhydramine [From Benadryl] Adverse Reaction (Verified 08/24/17 09:56) jittery Medications fluticasone 50 mcg/actuation nasal spray,suspension 50 mcg INTRANASAL BID PRN 08/12/17 [History Confirmed 08/24/17] lisinopril 10 mg-hydrochlorothiazide 12.5 mg tablet 1 tab PO QDAY tab 08/12/17 [History Confirmed 08/24/17] metoprolol succinate ER 50 mg tablet,extended release 24 hr 50 mg PO QDAY tab 08/24/17 [History Confirmed 08/24/17] PFSH Medical History Cystic thyroid nodule (Acute) Hemorrhoid (Acute) Murmur, heart (Acute) HTN (hypertension) (Chronic) Surgical History S/P cholecystectomy (Acute) S/P colonoscopy (Acute) S/P tonsillectomy (Acute) S/P tubal ligation (Acute) Family History Mother Diabetes Social History Smoking Status: Never smoker alcohol intake: current HPI HPI HPI: ANANTH DAVE, is a 82 F who presents to the office today for final aspiration of a solid cystic right thyroid lesion Office Procedures Procedure Time Out Time Out Informed consent given: Yes Consent signed: Yes Time out checklist: patient, procedure, site marked/identified, positioning of patient, supplies available, allergies confirmed, team agrees on procedure Time out staff in room: Yes Time out verified: Yes Time out date: 08/24/17 Time out time: 10:18 Assessment AND Plan 1. Cystic thyroid nodule E04.1 Plan The patient will be notified of cytology results as they become available. Possible consideration for follow-up thyroid ultrasound at 1 year pending results. Agustin Epstein M.D., F.A.C.S. Orders Orders: Coding Level of Care Code No Charge Diagnoses Cystic thyroid nodule E04.1 08/25/17 1003 <Electronically signed by Agustin Epstein MD> Date Agustin Epstein MD Cosigner Signature: Date (if applicable) CC: FLUID/WASHING Observed: 08/24/2017 Status: F Source: [place] 10:00 AM [facility] REPOSITORY Patient: ANANTH DAVE : 1935 (82/F) Acct Num: [id number] Phys: Tete CAIN,Agustin Unit Num: [id number] Loc: [facility] Specimen: [id number] Received: 08/24/17 - 1750 Spec Type: Fluid TISSUES TISSUES: A. Thyroid gland, NOS B. Thyroid gland, NOS COMMENT Correlation with clinical, radiologic findings and appropriate followup are necessary. CYTOLOGY GROSS A - Received is 2 ml of thick, cloudy, red fluid labeled with the patient's name and and designated per the requisition as right thyroid. Submitted for cytology preparation including cell block. B - Received are four smears labeled with the patient's name and designated per the requisition as right thyroid. Submitted for staining. / 08/25/17 TC: 5 CPT: 73168, 33726, 66798 CYTOLOGY STUDY Slides are reviewed. The specimen is adequate for evaluation. The specimen consists of benign follicular cells. Significant amount of colloid is not seen. DIAGNOSIS CYTOLOGY A. Right thyroid nodule fluid for cytology (Cytospin and Cytoblock). Rare benign follicular cells and macrophages are noted. Bloody specimen. B. Right thyroid nodule, FNA (smear): Consistent with benign follicular nodule. See cytology study and comment. SJ:jaison 08/26/17 HEADER OPERATION: Right thyroid FNA PRE-OP DIAGNOSIS: Right thyroid nodule TISSUE SUBMITTED: A - Right thyroid FNA, fluid for cytology, B Slides (4) Signed Klever Acosta 08/26/17 <signature on file> Performed By: #### PFLU #### [facility] [address] [place], [address] ECHOCARDIOGRAM COMPLETE Observed: 08/18/2017 Status: F Source: [place] 6:10 PM [facility] REPOSITORY [facility] Cardiovascular Services [address] [place] [address] Echo Complete 08/18/17 1250 MR#: [id number] Acct: [id number] Name: ANANTH DAVE Rep #: [id number] : 1935 82 From: Douglas Vera MD Attending Dr: Blue Lambert MD Status: REG CLI Ordering Dr: Blue Lambert MD Date: 08/18/17 Location: [facility] Sex: F C Admitted: Reason For Study: MURMUR Procedure This was a 2D Doppler, Color Flow transthoracic echocardiogram. Exam performed in department. Left Ventricle Normal size and thickness. The estimated ejection fraction is 65 %. Stage 2 diastolic dysfunction. No regional wall motion abnormalities noted. Right Ventricle Normal size and thickness. Normal systolic function. Atria The left atrium is moderately enlarged. Normal right atrium. Normal atrial septum. Mitral Valve Mild diffuse mitral valve thickening. Mild (1+) mitral valve insufficiency. Tricuspid Valve Normal tricuspid valve. Mild (1+) tricuspid valve insufficiency. Right ventricular systolic pressure estimated to be 47 mmHg. Moderate pulmonary hypertension. Aortic Valve Trisinus/trileaflet aortic valve. Mild diffuse aortic valve thickening. Pulmonic Valve Normal pulmonic valve. Trivial pulmonic valve insufficiency. Great Vessels Normal aortic root. Normal arch. Normal inferior vena cava. Inferior vena cava collapse with sniff. Pericardium/Pleural No pericardial effusion. MMode/2D Measurements AND Calculations LVIDd: 4.9 cm IVSd: 0.93 cm LVOT diam: 2.0 cm LVIDs: 3.1 cm LVPWd: 0.98 cm LVOT area: 3.1 cm2 RVDd: 3.5 cm FS: 35.9 % LA dimension: 3.6 cm LAV(MOD-bp): 83.8 ml LA A4 area: 24.3 cm2 LAV(MOD-bp) Indexed: 45.8 ml/m2 LAV(MOD-sp2): 81.9 ml LAV(MOD-sp4): 81.7 ml RA A4 area: 16.3 cm2 Time Measurements MV dec time: 0.18 sec Doppler Measurements AND Calculations MV E max satish: 126.7 cm/sec Lat Peak E' Satish: 8.2 cm/sec Med Peak E' Satish: 10.3 cm/sec MV A max satish: 81.7 cm/sec E/E' lat: 15.5 E/E' med: 12.3 MV E/A: 1.6 Ao V2 max: 156.0 cm/sec LV V1 max: 140.5 cm/sec PA V2 max: 97.1 cm/sec Ao max P.7 mmHg LV V1 max P.9 mmHg AGNIESZKA(V,D): 2.8 cm2 PI dec slope: 133.3 cm/sec2 TR max satish: 319.6 cm/sec TR max P.9 mmHg Interpretation Summary The estimated ejection fraction is 65 %. Stage 2 diastolic dysfunction. The left atrium is moderately enlarged. Mild (1+) mitral valve insufficiency. Mild (1+) tricuspid valve insufficiency. Right ventricular systolic pressure estimated to be 47 mmHg. Moderate pulmonary hypertension. There is no comparison study available. Ordering Physician: Blue Lambert Referring Physician: Blue Lambert Performed By: Cecilia Dorantes, RAMANDEEP, RVT 08/18/171809 Date Douglas Vera MD CC: Blue Lambert MD Date Dictated: 08/18/171249 Date Transcribed: 08/18/171809 Bench Carpenter: Signed SURGERY VISIT REPORT Observed: 08/12/2017 Status: F Source: [place] 3:53 PM [facility] RE[facility] [address] [place] [address] [id number] OFFICE VISIT Date of Service: 08/12/17 MR#: [id number] Acct: [id number] Name: ANANTH DAVE Rep #: [id number] : 1935 Provider: Agustin Epstein MD Age/Sex: 82/F Location: [facility] Status: Signed Intake Vital Signs08/12/17 Height 5 ft 7.25 in 08/12/17 Weight: 154 lb 2 oz 08/12/17 Body Mass Index (BMI) 23.9 08/12/17 Blood Pressure 161/71 Intake Visit Reasons: BILATERAL THYROID NODULES Chief Complaint: bilateral thyroid nodules Business Management Professor Required: No Is patient in pain?: No Allergies amoxicillin [From Trimox] Allergy (Severe, Verified 08/12/17 15:25) throat swelling ciprofloxacin [From Cipro] Adverse Reaction (Verified 08/12/17 15:25) GI upset diphenhydramine [From Benadryl] Adverse Reaction (Verified 08/12/17 15:25) jittery Medications amlodipine 2.5 mg tablet 2.5 mg PO QDAY tab 08/12/17 [History Confirmed 08/12/17] fluticasone 50 mcg/actuation nasal spray,suspension 50 mcg INTRANASAL BID PRN 08/12/17 [History Confirmed 08/12/17] lisinopril 10 mg-hydrochlorothiazide 12.5 mg tablet 1 tab PO QDAY tab 08/12/17 [History Confirmed 08/12/17] Is last menstrual period known: No Post menopausal: Yes Patient : No PFSH Medical History Cystic thyroid nodule (Acute) Hemorrhoid (Acute) Murmur, heart (Acute) HTN (hypertension) (Chronic) Surgical History S/P cholecystectomy (Acute) S/P colonoscopy (Acute) S/P tonsillectomy (Acute) S/P tubal ligation (Acute) Family History Mother Diabetes Social History Smoking Status: Never smoker alcohol intake: current HPI HPI HPI: ANANTH DAVE, is a 82 F who presents to the office today for surgical consultation regarding an abnormal thyroid finding. The patient is referred by Dr. Blue Lambert and a written copy of my surgical consult recommendations will be returned to him. Very pleasant 82-year-old female. She has no history of head neck symptoms. She has no previous history of thyroid disease. Family history is negative for thyroid disease. She has established care with Dr. Lambert and a enlarged thyroid was noted. On July 28, 2017 laboratory was obtained notable for TSH of 2.52 and her free T4 of 1.34. On August 02, 2017 the patient had a thyroid ultrasound. The right lobe measures 4.4 cm and there is a 2.3 x 1.3 x 1.6 cm partially solid partially cystic nodule midpole. On the left the length measures 3.9 cm and there is only a 3 mm partially cystic nodule in the central portion. ROS General General: No weight change, appetite, fatigue, colon cancer, breast cancer or weakness HEENT HEENT: Yes eye injury; no difficulty swallowing, eye surgery, swollen glands or hoarseness Endo Endocrine: No thyroid disease, diabetes mellitus, thyroid cancer, Hair loss, heat intolerance or cold intolerance Skin Skin: No rash or changing moles Breast Breast: No left breast lump, right breast lump, nipple discharge, breast pain, abnormal mammogram, abnormal US or breast enlargement Musc Musculoskeletal: Yes arthritis; no back problems, rheumatoid arthritis, gout or joint pain Cardio Cardiovascular: Yes murmur and high blood pressure; no pacemaker, heart disease, atrial fibrillation, heart attack, heart stent, palpitations, shortness of breat with exertion or chest pain Psych Psychiatric: No depression, anxiety or hearing voices Resp Respiratory: No shortness of breath, No sleep apnea, No cough, No COPD, No asthma, No emphysema, No wheezing Gastro Gastrointestinal: No abdominal pain, No nausea or vomiting, No diarrhea, No constipation, No blood in stool, No acid reflux, Yes hemorrhoids, No ulcers, No gallbladder problem, No black,tarry stools Jimmy Hematologic: No blood thinners, No blood disorders, No bleeding, No anemia, No blood clots Neuro Neurologic: No system reviewed and no additional complaints, except as docu, No as per HPI, No abnormal walking, No abnormal hearing, No abnormal movements, No abnormal speech, No behavioral changes, No burning sensations, No confusion, No seizure-like activity, No unsteadiness, No dizziness, No localized weakness, No frequent falls, No headache(s), No lack of coordination, No loss of vision, No memory loss, No numbness, No other visual disturbances, No radiating pain, No restless legs, No sensory deficit, No fainting, No tingling, No tremor(s), No weakness, No other Exam Neck Other: Supple, nontender, carotids are 3+ no bruits, no cervical adenopathy Thyroid suggest slight fullness on the right. Nontender. The gland moves with swallowing. Chest Breast Palpation: No nipple discharge Cardio Heart Sounds: murmur Neuro Other: Chvostek is negative Assessment AND Plan Problems 1. Cystic thyroid nodule E04.1 Plan I have reviewed the patient's imaging and I recommended the patient an ultrasound-guided fine-needle aspiration of the right thyroid. I have discussed the technique, benefits, risks, alternatives. She is aware that this likely is benign based upon the significant cystic component. She has had an opportunity to ask and have questions answered. We will schedule for the fine-needle aspiration and expedite her care. I very much appreciate the kind opportunity of assisting with her surgical care Cc: Dr. Blue Epstein M.D., F.A.C.S. Coding Level of Care Code jamila Toribio fwd Diagnoses Cystic thyroid nodule E04.1 08/12/17 1553 <Electronically signed by Agustin Epstein MD> Date Agustin Epstein MD Cosigner Signature: Date (if applicable) CC: Blue Lambert MD DEXA BONE DENSITY Observed: 08/02/2017 Status: F Source: [place] STUDY () 10:08 AM [facility] REPOSITORY [facility] Imaging Services [address] [place] [address] 45069 Dexa Bone Density Study () MR#: [id number] Acct: [id number] Name: ANANTH DAVE Rep #: [id number] : 1935 F 82 From: Kevin Law MD PCP: Blue Lambert MD Status: REG CL Study: Dexa Bone Density Study () Date of Exam: 08/02/17 Exam# [id number] Ordering Dr: Blue Lambert MD STUDY: DUAL ENERGY X-RAY ABSORPTIOMETRY / DXA REASON FOR EXAM: Female, 82 years old. The patient is postmenopausal. Loss of height. TECHNIQUE: Bone Mineral Density (BMD) measurements of lumbar spine and bilateral hips were obtained. COMPARISON: Comparison is made with prior study dated November 10, 2000. FINDINGS: Lumbar Spine (L1-L4): g/cm2 (1.378) / T-score (1.7) / Z-score (3.5) Findings are suggestive of normal bone density with a low fracture risk. Left Femur Total: g/cm2 (0.899) / T-score (-0.9) / Z- score (1.1) Left Femoral Neck: g/cm2 (0.801) / T-score (-1.7) / Z- score (0.4) Right Femur Total: g/cm2 (0.906) / T-score (-0.8) / Z- score (1.2) Right Femoral Neck: g/cm2 (0.87 to) / T-score (-1.2) / Z-score (1.0) The T-Scores on the most recent prior examination were: Lumbar Spine (L1-L4): There has been worsening of bone density since the previous examination. Left Femur Total: which represents a worsening of 16.5%. HPBD/Dexa Bone Density Study (HP) IMPRESSION: The patient is considered osteopenic as outlined below according to World Jairo Organization (WHO) criteria with a moderate fracture risk. There has been worsening of bone density since the previous examination. Reference Information: The T-score is the number of standard deviations above or below the standard which is normal for young adults at their peak bone mineral density. The World Health Organization (WHO) interprets the T-scores as follows: Above -1 Normal bone density Between -1 and -2.5 Osteopenia Equal to / or below -2.5 Osteoporosis As a practical clinical guideline, osteopenia may be graded as follows: Mild -1 through -1.5 Moderate -1.6 through -2.0 Severe -2.1 through -2.4 The Z-score is the number of standard deviations above or below age-matched controls. A Z-score of less than -1.5 would be considered abnormal. References: 1. NIH Osteoporosis and Related Bone Diseases http://www.osteo.org 2. International Society for Clinical Densitometry http://www.iscd.org 3. National Osteoporosis Foundation http://www.nof.org Electronically Signed: Kevin Law MD at 11:01 EST Tel [phone], Service support , CC: Blue Lambert MD Bench Carpenter: Signed THYROID Observed: 08/02/2017 Status: F Source: [place] 10:08 AM [facility] RE[facility] Imaging Services [address] [place] [address] Thyroid MR#: [id number] Acct: [id number] Name: ANANTH DAVE Rep #: [id number] : 1935 F 82 From: Mayra Fuentes MD PCP: Blue Lambert MD Status: REG CLI Study: Thyroid Date of Exam: 08/02/17 Exam# [id number] Ordering Dr: Blue Lambert MD US Thyroid (eg thyroid, parathyroid, parotid) INDICATION: NODULE COMPARISON: None TECHNIQUE: Ultrasonographic grayscale and Doppler investigation of the thyroid gland FINDINGS: The right lobe measures 4.4 x 1.7 x 1.4 cm. There is a 2.3 x 1.3 x 1.6 cm partially solid partially cystic nodule seen in the midpole region of the right lobe. The isthmus measures 1.5 mm in thickness and is unremarkable. The left lobe of the thyroid measures 3.9 x 1 x 0.8 cm and contains a 3 mm partially cystic partially solid nodule in the central portion. No abnormal calcifications are seen. US/Thyroid IMPRESSION: Bilateral thyroid nodules, right thyroid nodule is partially cystic partially solid and measures 2.3 x 1.3 x 1.6 cm. Left thyroid nodule is partially cystic and partially solid and measures 3 mm in diameter. Nuclear medicine thyroid uptake scan may be helpful for further evaluation of the right thyroid nodule. at 2007 Reported and signed by: Mayra Fuentes MD Electronically Signed: Mayra Fuentes MD at 19:05 EST Tel , Service support , CC: Blue Lambert MD Bench Carpenter: Signed BILIRUBIN,TOTAL DIR,IND Collected: 07/28/2017 Status: F Source: [place] 2:15 PM [facility] REPOSITORY TYPE CODE TESTS RESULT OUT OF RANGE REFERENCE UNITS LAB L501.4600 0.20-1.00 mg/dL High T BILI 1.80 LAB L501.4700 0.00-0.30 mg/dL Normal D BILI 0.28 LAB L501.4800 0.00-1.00 mg/dL High I BILI 1.50 Performed By: #### L501.0000 #### [facility] [address] [place], [address] URINALYSIS, COMPLETE Collected: 07/28/2017 Status: F Source: [place] 11:16 AM [facility] REPOSITORY Order Comment: How was Urine Obtained? CLEAN CATCH TYPE CODE TESTS RESULT OUT OF RANGE REFERENCE UNITS LAB L400.3000 Yellow COLOR Normal Yellow LAB L400.3050 Clear Normal CLARITY Clear LAB L400.3200 Normal mg/dl Normal GLUCOSE, UR Normal LAB L400.3300 Negative mg/dL Normal BILIRUBIN URINE Negative LAB L400.3400 Negative mg/dl Normal KETONE UR Negative LAB L400.3465 1.002-1.030 Normal SP.GR. DIPSTX 1.010 LAB L400.3550 5.0 - 8.0 pH UR Normal 7.0 LAB L400.3600 Negative mg/dl PROT Normal DIPSTX Negative LAB L400.3700 Normal mg/dl Normal UROBILI Normal LAB L400.3750 Negative Normal NITRITE UR Negative LAB L400.3780 Negative /ul Normal OCCULT BLOOD-UR Negative LAB L400.3800 Negative /ul High LEUK 25 ESTERASE LAB L400.4050 0-5 /hpf WBC 0 Normal SEEN LAB L400.4100 0-5 /hpf 0 Normal RBC-UA SEEN LAB L400.4150 5-10 /hpf SQUAM Normal EPI 0-5 SEEN LAB L400.4300 None Seen /hpf 0 Normal BACTERIA SEEN LAB L400.4350 <or=2+ /hpf 0 Normal MUCUS, URINE SEEN Performed By: #### L400.0001 #### [facility] [address] [place], [address] HEMOGLOBIN A1C Collected: 07/28/2017 Status: F Source: [place] 11:16 AM [facility] RE[facility] TYPE CODE TESTS RESULT OUT OF RANGE REFERENCE UNITS LAB L501.9985 4.2-6.3 % Normal HGB A1C 5.5 Performed By: #### L501.9985 #### [facility] [address] [place], [address] CBC W/DIFF, AUTOMATED Collected: 07/28/2017 Status: F Source: [place] 11:16 AM [facility] REPOS[facility] TYPE CODE TESTS RESULT OUT OF RANGE REFERENCE UNITS LAB L100.1000 4.4-11.0 K/mm3 Normal WBC 9.1 LAB L100.1200 4.2-5.4 M/mm3 Low RBC 3.84 LAB L100.1300 12.0-15.0 g/dl Normal HGB 12.0 LAB L100.1400 37-47 % Normal HCT 37.1 LAB L100.1500 81-99 fL Normal MCV 96.6 LAB L100.1600 27.0-32.0 pg Normal MCH 31.3 LAB L100.1700 32-36 g/gl Normal MCHC 32.3 LAB L100.1810 11.6-14.6 % High RDW CV 21.3 LAB L100.1820 35.1-43.9 fl High RDW SD 76.2 LAB L100.1900 150-450 K/mm3 Normal PLT 313 LAB L100.2000 6.2-12.0 fl Normal MPV 11.5 LAB L100.2100 47-70 % Normal NEUT% 49.8 LAB L100.2200 19-41 % Normal LY% 36.0 LAB L100.2300 0-10 % High MONO% 12.3 LAB L100.2400 0-5 % Normal EO% 0.9 LAB L100.2500 0-1 % Normal BASO% 0.8 LAB L100.2550 0.0-0.9 % Normal IM GRAN % 0.200 Result Comment: IG% - Immature Granulocytes (promyelocytes, myelocytes and metamyelocytes) > 1% indicates that a LEFT SHIFT is Present. LAB L100.2620 2.0-7.7 X10 3/uL Normal Absolute Neut 4.5 LAB L100.2720 0.83-4.51 X10 3/ul Normal Absolute Lymph 3.28 LAB L100.7300 ANISO Normal 1+ Performed By: #### L100.0100 #### [facility] [address] [place], [address] COMPREHENSIVE METABOLIC Collected: 07/28/2017 Status: F Source: [facility] 11:16 AM [facility] TYPE CODE TESTS RESULT OUT OF RANGE REFERENCE UNITS LAB L501.0100 74-106 mg/dL Normal GLU 96 Result Comment: Please note revised GLUCOSE reference range effective 2017. LAB L501.1000 7-18 mg/dL Normal BUN 12 LAB L501.1100 0.55-1.02 mg/dL Normal CREAT,SERUM 0.58 Result Comment: The validity of the calculated GFR AND GFRAA in patients over 70 years has not been determined. Clinical correlation is essential. LAB L501.1110 >60 mL/min Normal EST GFR 106 Result Comment: Non- GFR Calc LAB L501.1115 >60 mL/min Normal EST GFR - AA 129 Result Comment: GFR Calc LAB L501.1300 10-20 RATIO High BUN/CRE 20.7 LAB L501.1500 6.4-8.2 g/dL T Normal PROT 7.0 LAB L501.1800 3.2-5.0 g/dL Normal ALB 4.2 LAB L501.1950 2.2-4.2 g/dL Normal GLOB 2.8 LAB L501.2000 0.9-2.4 RATIO Normal A/G 1.5 LAB L501.2200 8.5-10.1 mg/dL CA Normal 9.1 LAB L501.4100 15-37 U/L Low AST 14 LAB L501.4305 45-117 U/L Normal ALK P 85 LAB L501.4405 13-56 U/L Normal ALT 21 Result Comment: Please note revised ALT reference range effective 2017. LAB L501.4600 0.20-1.00 mg/dL High T BILI 1.70 LAB L501.5300 136-145 mmol/L Normal NA 139 LAB L501.5600 3.5-5.1 mmol/L Normal K 3.8 LAB L501.5900 98-107 mmol/L Normal CL 104 LAB L501.6100 21.0-32.0 mmol/L Normal CO2 27.0 LAB L501.6200 5-15 Normal GAP 8 Performed By: #### L500.4050, L500.4100, L501.9520, L506.0400 #### [facility] [address] [place], [place], [address] LIPID PROFILE Collected: 07/28/2017 Status: F Source: [place] 11:16 AM [facility] TYPE CODE TESTS RESULT OUT OF RANGE REFERENCE UNITS LAB L501.4900 200 mg/dL Normal CHOL 151 Result Comment: <200 mg/dL Desirable 200-240 mg/dL Borderline >240 mg/dL High Risk LAB L501.5000 mg/dL Normal TRIG 64 Result Comment: The drugs N-Acetylcysteine and Metamizole may falsely depress this assay. Serum Triglycerides Reference Interval Normal <150 mg/dL Borderline high 150 - 199 mg/dL High 200 - 499 mg/dL Very High > or = 500 mg/dL LAB L501.6400 mg/dL Normal HDL 65 Result Comment: The drugs N-Acetylcysteine and Metamizole may falsely depress this assay. Reference Range HDL <40 mg/dL Low HDL Cholesterol HDL >or= 60 mg/dL High HDL Cholesterol LAB L501.6500 0-130 mg/dL Normal LDL 73 LAB L501.6600 5-40 mg/dL Normal VLDL 13 Performed By: #### L500.4050, L500.4100, L501.9520, L506.0400 #### [facility] [address] [place], [place], [address] THYROID STIM HORMONE Collected: 07/28/2017 Status: F Source: [facility] ([facility]) 11:16 AM [facility] TYPE CODE TESTS RESULT OUT OF RANGE REFERENCE UNITS LAB L501.9520 0.358-3.74 uIU/mL Normal TSH 2.52 Performed By: #### L500.4050, L500.4100, L501.9520, L506.0400 #### [facility] [address] [place], [address] T4 FREE DIRECT Collected: 07/28/2017 Status: F Source: [facility] 11:16 AM [facility] TYPE CODE TESTS RESULT OUT OF RANGE REFERENCE UNITS LAB L506.0400 0.76-1.46 ng/dL Normal T4 FREE 1.34 DIRECT Performed By: #### L500.4050, L500.4100, L501.9520, L506.0400 #### [facility] [address] [place], [address] ALLERGIES ALLERGIES DATE TYPE / CODE NAME / CODE REACTION SEVERITY SOURCE 08/24/2017 Drug ciprofloxaci gi upset Unknown [facility] Allergy/4160 n/[id number] [facility](SNOMED (RXNORM) Repository CT) 08/24/2017 Drug amoxicillin/ throat swelling SV [facility] Allergy/4160 [id number]( [facility](SNOMED XNORM) Repository CT) 08/24/2017 Drug diphenhydram JITTERY Unknown [facility] Allergy/4160 ine/[id number] [facility](SNOMED 87(RXNORM) Repository CT) ENCOUNTERS ENCOUNTERS ADMIT/DISCHARGE ACCOUNT ADMITTING ENCOUNTER LOCATION SOURCE NUMBER CLASS 05/12/2018 [id number] [facility] [place] [facility] ing:LAB.FUTUR Repository E 01/17/2018 [id number] Ambulatory [place] 0 [facility] ing:MFPLAB Repository 01/13/2018 [id number] Ambulatory [place] 6 [facility] ing:MFPLAB Repository 08/24/2017 [id number] Ambulatory [place] 2 [facility] ing:LABSPEC Repository 08/24/2017/03/28 [id number] Ambulatory [facility] [place] [facility] Repository 08/18/2017 [id number] Ambulatory [place] [facility] 4 [facility] ing:CVS Repository 08/18/2017 [id number] Ambulatory BMSBuilding:W [facility] 0 [facility] Repository 08/12/2017/ [id number] Ambulatory BMSBuilding:B [place] [facility] Repository 08/02/2017 [id number] Ambulatory [place] 6 [facility] ing:US Repository 07/28/2017 [id number] Ambulatory [place] 2 [facility] ing:MFPLAB Repository PAYERS PAYERS ENCOUNTER GUARANTOR PAYER SUBSCRIBER SOURCE 05/12/2018 ANANTH David Primary ANANTH David [place] [id number] Insurance:MEDICARE PEARCEDOB: [facility] BAYBERRY PART A [facility] [id number] Number: Repository [id number]: 330 [id number] [phone] () Date:2018-05-12 05/12/2018 Secondary ANANTH David [place] Insurance:WPS PEARCEDOB: [facility] [id number] Hospital Number: Repository [id number] Date:[id number] [address]AX: 05/12/2018 Tertiary NOT GIVENUNK [place] Insurance:SELF PAY [facility] Number: Effective Repository Date:2018-05-12 01/17/2018 ANANTH David Primary ANANTH David [place] [id number] Insurance:MEDICARE PEARCEDOB: [facility] BAYBERRY PART A [facility] [id number] Number: Repository [id number]: 330 [id number] [phone] () Date:2018-01-17 01/17/2018 Secondary ANANTH David [place] Insurance:WPS PEARCEDOB: [facility] [id number] Hospital Number: Repository [id number] Date:8716-42-00[address], [place] [address]AW: 01/17/2018 Tertiary NOT GIVENUNK [place] Insurance:SELF PAY [facility] Number: Effective Repository Date:2018-01-17 01/13/2018 ANANTH David Primary ANANTH David [place] [id number] Insurance:MEDICARE PEARCEDOB: Community BAYBERRY PART A [facility] [id number] Number: Repository [id number]: 330 [id number] [phone] () Date:2018-01-13 01/13/2018 Secondary ANANTH David Hema Insurance:WPS PEARCEDOB: [facility] FOR [facility] [id number] Hospital Number: Repository [id number] Date:2049-91-30[address] [address]TT: 01/13/2018 Tertiary NOT GIVENUNK [place] Insurance:SELF PAY [facility] Hospital Number: Effective Repository Date:2018-01-13 08/24/2017 ANANTH David Primary ANANTH David [place] [id number] Insurance:MEDICARE PEARCEDOB: Community BAYBERRY PART A [facility] [id number] Number: Repository [id number]: 330 [id number] [phone] () Date:2017-08-24 08/24/2017 Secondary ANANTH David Hema Insurance:WPS PEARCEDOB: [facility] [id number] Hospital Number: Repository [id number] Date:0381-05-15ZO [address], [place] [address]GJ: 08/24/2017 Tertiary NOT GIVENUNK Hema Insurance:SELF PAY [facility] Hospital Number: Effective Repository Date:2017-08-24 08/24/2017 ANANTH David Primary ANANTH David [place] [id number] Insurance:MEDICARE PEARCEDOB: Community BAYBERRY PART A [facility] [id number] Number: Repository [id number]: 330 [id number] [phone] (HP) Date:2017-08-12 08/24/2017 Secondary ANANTH David Hema Insurance:WPS PEARCEDOB: [facility] [id number] Hospital Number: Repository [id number] Date:6617-08-48[address] [address]PC: 08/24/2017 Tertiary NOT GIVENUNK [place] Insurance:SELF PAY [facility] Hospital Number: Effective Repository Date:2017-08-24 08/18/2017 ANANTH David Primary ANANTH David Hema [id number] Insurance:MEDICARE PEARCEDOB: Community BAYBERRY PART A [facility] [id number] Number: Repository [id number]: 330 [id number] [phone] () Date:2017-07-29 08/18/2017 Secondary ANANTH David Hema Insurance:WPS PEARCEDOB: [facility] [id number] Hospital Number: Repository [id number] Date:6309-73-26[address] [address]IP: 08/18/2017 Tertiary NOT GIVENUNK Hema Insurance:SELF PAY [facility] Hospital Number: Effective Repository Date:2017-07-29 08/18/2017 ANANTH David Primary ANANTH David [place] [id number] Insurance:MEDICARE PEARCEDOB: Community BAYBERRY PART A [facility] [id number] Number: Repository [id number]: 330 [id number] [phone] () Date:2017-07-29 08/18/2017 Secondary ANANTH David Hema Insurance:WPS PEARCEDOB: [facility] [id number] Hospital Number: Repository [id number] Date:3609-24-62[address], [place] [address]LO: 08/18/2017 Tertiary NOT GIVENUNK [place] Insurance:SELF PAY [facility] Hospital Number: Effective Repository Date:2017-08-18 08/12/2017 ANANTH David Primary ANANTH David Hema [id number] Insurance:MEDICARE PEARCEDOB: Community BAYBERRY PART A [facility] [id number] Number[place] Repository [id number]: 330 [id number] [phone] (HP) Date:2017-08-09 08/12/2017 Secondary Charlee J [place] Insurance:WPS PearceDOB: [facility] [id number] Hospital Number: Repository [id number] Date:3512-60-04[address], [place] [address]YR: 08/12/2017 Tertiary NOT GIVENUNK [place] Insurance:SELF PAY [facility] Number: Effective Repository Date:2017-08-09 08/02/2017 ANANTH David Primary ANANTH David [place] [id number] Insurance:MEDICARE [facility]EDOB[id number] [place] Number: Repository [id number]: [id number] [phone] (HP) Date:2017-07-28 08/02/2017 Secondary Charlee J Hema Insurance:WPS PearceDOB: [facility] [id number] Hospital Number: Repository [id number] Date:[id number] [address], [place] [address]FY: 08/02/2017 Tertiary NOT GIVENUNK [place] Insurance:SELF PAY [facility] Number: Effective Repository Date:2017-07-28 07/28/2017 Charlee J Primary ANANTH David [place] [id number] Insurance:MEDICARE PEARCEDOB: [facility] [place] PART A [facility] [id number] Number: Repository [id number]: [id number] [phone] Date:2017-07-28 2 (HP) 07/28/2017 Secondary Charlee J Hema Insurance: PearceDOB: [facility] Number: [id number] Hospital [id number] Repository Date:2017-07-28c/o TATIANA BOLIVAR/JOSE LUIS [address] [address]GA: 07/28/2017 Tertiary NOT GIVENUNK Hema Insurance:SELF PAY [facility] Number: Effective Repository Date:2017-07-28
== END ==
PROVIDERS: Family Provider Family Medicine; PCP Family Medicine; Visit Provider Family Medicine
DX: I10 Essential (primary) hypertension (principal); E80.6 Other disorders of bilirubin metabolism; M85.80 Other specified disorders of bone density and structure, unspecified site
CPT/HCPCS: 36415; 80048; 80076; 82306; 85025

== ENCOUNTER → 2018-08-03 14:10 | Outpatient (CLI) | payer MEDICARE, OTHER, SELFPAY ==
[2018-08-03 13:54] VITALS: BMI 23.7
--- NOTE | 2018-08-03 14:13 | RAD_ITS ---
STUDY: X-RAY CHEST REASON FOR EXAM: Female, 83 years old. History of recent flu. Posterior chest wall pain. TECHNIQUE: PA and lateral views of the chest. COMPARISON: None. FINDINGS: Hyperinflation. Scattered calcified granulomas. There is no demonstrated pleural abnormality. Normal size heart. Normal mediastinum and delmy. Normal visualized pulmonary arteries. Normal visualized aortic arch and descending thoracic aorta. There are degenerative changes of the visualized thoracic spine. Normal visualized ribs, clavicles, and shoulders. There is no demonstrated abnormality of the visualized soft tissue structures of the upper abdomen. RAD/Chest PA and Lateral IMPRESSION: Hyperinflation. The lungs are clear. Electronically Signed: Kevin Law, at 14:49 EST , Service support ,
== END ==
PROVIDERS: Family Provider Family Medicine; PCP Family Medicine; Referring Provider Physician Assistant; Visit Provider Physician Assistant
DX: R05 Cough (principal)
CPT/HCPCS: 71046

== ENCOUNTER → 2018-10-10 09:29 | Outpatient (CLI) | payer MEDICARE, OTHER, SELFPAY ==
[2018-08-03 13:54] VITALS: BMI 23.7
[2018-10-10 14:10] LABS: Absolute Lymphocyte Count 3.38 X10^3/ul (0.83-4.51); Absolute Neutrophil Count 3.9 X10^3/uL (2.0-7.7); Basophil# 0.05 X10^3/uL; Basophil% 0.6 % (0-1); Eosinophil# 0.12 X10^3/uL; Eosinophils% 1.4 % (0-5); Hematocrit 34.6 % (37-47); Hemoglobin 11.2 g/dl (12.0-15.0); Lymphocyte # 3.38 X10^3/ul (4.0); Lymphocyte % 39.1 % (19-41); Mean Corp Hgb Conc 32.4 g/gl (32-36); Mean Corpuscular Hgb 31.5 pg (27.0-32.0); Mean Corpuscular Volume 97.5 fL (81-99); Mean Platelet Vol. 11.5 fl (6.2-12.0); Monocyte# 1.16 X10^3/uL; Monocyte% 13.4 % (0-10); Neutrophil # 3.91 X10^3/uL (2.7-7.7); Neutrophil % 45.3 % (47-70); Platelet Count 338 K/mm3 (150-450); RBC Distribution Width CV 21.2 % (11.6-14.6); RBC Distribution Width SD 76.8 fl (35.1-43.9); Red Blood Count 3.55 M/mm3 (4.2-5.4); White Blood Count 8.6 K/mm3 (4.4-11.0)
[2018-10-10 14:14] LABS: Differential Indicated SCAN CRITERIA MET; POSITIVE COUNT NO; POSITIVE DIFFERENTIAL NO; POSITIVE MORPHOLOGY YES
[2018-10-10 14:17] LABS: Vitamin D,25 Hydroxy 28.2 ng/mL (29.95-100.01)
[2018-10-10 14:22] LABS: AST(SGOT) 11 U/L (15-37); Alanine Aminotransfer ALT/SGPT 23 U/L (13-56); Alkaline Phosphatase 79 U/L (45-117); Anion Gap 10 (5-15); BUN 12 mg/dL (7-18); BUN/Creat Ratio 18.8 RATIO (10-20); Bilirubin, Direct 0.37 mg/dL (0.00-0.30); Calcium,Total 9.5 mg/dL (8.5-10.1); Chloride 105 mmol/L (98-107); Creatinine, Serum 0.64 mg/dL (0.55-1.02); EST Glomerular Filtration Rate 95 mL/min (>60); Est Glom Filt Rate - Afr Amer 115 mL/min (>60); Globulin 2.7 g/dL (2.2-4.2); Glucose 91 mg/dL (74-106); Potassium 3.8 mmol/L (3.5-5.1); Protein, Total 6.7 g/dL (6.4-8.2); Sodium Level 141 mmol/L (136-145)
== END ==
PROVIDERS: Family Provider Family Medicine; PCP Family Medicine; Visit Provider Family Medicine
DX: I10 Essential (primary) hypertension (principal); E80.6 Other disorders of bilirubin metabolism; M85.80 Other specified disorders of bone density and structure, unspecified site
CPT/HCPCS: 36415; 80048; 80076; 82306; 85025

== ENCOUNTER → 2018-10-12 14:41 | Outpatient (CLI) | payer MEDICARE, OTHER, SELFPAY ==
[2018-08-03 13:54] VITALS: BMI 23.7
--- NOTE | 2018-10-12 14:45 | US_ITS ---
STUDY: THYROID ULTRASOUND REASON FOR EXAM: Female, 83 years old. Follow-up nodule TECHNIQUE: Ultrasound evaluation of the thyroid was performed with real-time and static lowe-scale imaging. COMPARISON: Thyroid ultrasound from August 02, 2017 FINDINGS: RIGHT LOBE: The right lobe of the thyroid gland measures 4.2 x 2.3 x 2.2 cm. There is a homogeneous echotexture. There is a right thyroid nodule that is partially cystic and partially solid which measures 2.8 x 2.1 x 2 cm in size, previously measuring 2.3 x 1.3 x 1.6 cm in size.. LEFT LOBE: The left lobe of the thyroid gland measures 3.9 x 1.1 x 1.3 cm. There is a homogeneous echotexture. There are no demonstrated solid, cystic or complex lesions. There is a left thyroid mid pole isoechoic 3 x 4 x 3 mm nodule and inferior isoechoic 4 x 3 x 3 mm nodule. ISTHMUS: The isthmus measures 2 mm . The regional lymph nodes are normal. US/Thyroid IMPRESSION: Bilateral thyroid nodules described above, with interval increase in size of the right nodule as described above. Biopsy should be considered of right thyroid nodule if not previously performed. Electronically Signed: Rosalino Conklin, at 16:10 EDT Tel , Service support ,
== END ==
PROVIDERS: Family Provider Family Medicine; PCP Family Medicine; Referring Provider Family Medicine; Visit Provider Family Medicine
DX: E04.2 Nontoxic multinodular goiter (principal)
CPT/HCPCS: 76536

== ENCOUNTER → 2018-10-27 14:55 | Outpatient (CLI) | payer MEDICARE, OTHER, SELFPAY ==
[2018-10-26 15:11] VITALS: BMI 23.7
== END ==
PROVIDERS: Family Provider Family Medicine; PCP Family Medicine; Referring Provider Physician Assistant; Visit Provider Physician Assistant
DX: S11.90XA Unspecified open wound of unspecified part of neck, initial encounter (principal); X58.XXXA Exposure to other specified factors, initial encounter; Y93.9 Activity, unspecified; Y92.9 Unspecified place or not applicable; Y99.9 Unspecified external cause status
CPT/HCPCS: 87070; 87205

== ENCOUNTER → 2018-10-31 16:22 | Outpatient (CLI) | payer MEDICARE, OTHER, SELFPAY ==
--- NOTE | 2018-10-31 13:45 | FLU_PTH ---
PATIENT: ANANTH DAVE LOC: [facility] U#:[id number] AGE/SX: 89/F ROOM: RE10/31/[address]: Dr. Agustin Epstein MD : 1935 BED: DIS: SPEC #: [id number] RECD: 10/31/18 15:18 STATUS: LUZMA HUMBERTO #: [id number] DEUCE: 10/31/18 13:[address]: Agustin Epstein DEPT: CYTOLOGY RECD BY: Naz Villanueva ENTERED: 11/01/18 10:09 SP TYPE: Fluid OTHR DR: Dr. Blue Lambert MD Tissues: A - Thyroid gland, NOS B - Thyroid gland, NOS Procedures: Special Stain Group II Surgery Specimen Level IV Cytospin Fluid HEADER OPERATION: Ultrasound guided fine needle aspiration of right thyroid PRE-OP DIAGNOSIS: Cystic thyroid nodule, EO4.1 TISSUE SUBMITTED: A. Fluid in syringe, right thyroid, B. Fine needle aspiration, right thyroid (4 slides) DIAGNOSIS CYTOLOGY A. Fine needle aspiration, right thyroid nodule (cytospin and cell block): Macrophages consistent with benign cyst contents. B. Fine needle aspiration, right thyroid nodule (smears): Adequate for evaluation. Negative, consistent with benign cystic follicular nodule. AM:eduardo 11/02/18 COMMENT Immediate cytologic evaluation to determine adequacy is not applicable. CYTOLOGY STUDY Slides are reviewed. CYTOLOGY GROSS A. Received is 3 ml of cloudy dark red fluid labeled with the patient's name and and designated per the requisition as Right thyroid. Submitted for cytology preparation including cell block. B. Received are 4 smears labeled with the patient's name and designated per the requisition as FNA right thyroid. Submitted for staining. /CC:cc 11/01/18 TC:5 CPT: 88840, 01060, 43751
[2018-10-31 14:04] VITALS: BMI 23.7
== END ==
PROVIDERS: Family Provider Family Medicine; PCP Family Medicine; Referring Provider Surgery; Visit Provider Surgery
DX: E04.1 Nontoxic single thyroid nodule (principal)
CPT/HCPCS: 88108; 88305; 88313

== ENCOUNTER → 2019-02-09 08:22 | Outpatient (CLI) | payer MEDICARE, OTHER, SELFPAY ==
[2018-10-31 14:04] VITALS: BMI 23.7
[2019-02-09 10:22] LABS: Absolute Lymphocyte Count 3.18 X10^3/uL (0.83-4.51); Absolute Neutrophil Count 3.3 X10^3/uL (2.0-7.7); Basophil# 0.08 X10^3/uL; Basophil% 1.1 % (0-1); Eosinophil# 0.11 X10^3/uL; Eosinophils% 1.5 % (0-5); Hematocrit 33.6 % (37-47); Hemoglobin 10.9 g/dL (12.0-15.0); Lymphocyte # 3.18 X10^3/ul (4.0); Lymphocyte % 42.1 % (19-41); Mean Corp Hgb Conc 32.4 g/dL (32-36); Mean Corpuscular Hgb 31.4 pg (27.0-32.0); Mean Corpuscular Volume 96.8 fL (81-99); Mean Platelet Vol. 11.6 fl (6.2-12.0); Monocyte# 0.89 X10^3/uL; Monocyte% 11.8 % (0-10); NRBC Flagged by Analyzer 0.4 % (0-5); Neutrophil # 3.27 X10^3/uL (2.7-7.7); Neutrophil % 43.1 % (47-70); POSITIVE MORPHOLOGY YES; Platelet Count 249 K/mm3 (150-450); RBC Distribution Width SD 81.8 fl (35.1-43.9); Red Blood Count 3.47 M/mm3 (4.2-5.4); White Blood Count 7.6 K/mm3 (4.4-11.0)
[2019-02-09 10:27] LABS: Differential Indicated SCAN CRITERIA MET
[2019-02-09 11:03] LABS: Anisocytosis 1+; Platelet Morphology LARGE
[2019-02-09 11:17] LABS: AST(SGOT) 24 U/L (15-37); Alanine Aminotransfer ALT/SGPT 42 U/L (13-56); Albumin, Serum 3.9 g/dL (3.2-5.0); Alkaline Phosphatase 79 U/L (45-117); Anion Gap 4 (5-15); BUN 12 mg/dL (7-18); BUN/Creat Ratio 20.1 RATIO (10-20); Bilirubin, Direct 0.36 mg/dL (0.00-0.30); Calcium,Total 8.7 mg/dL (8.5-10.1); Chloride 110 mmol/L (98-107); EST Glomerular Filtration Rate 102 mL/min (>60); Est Glom Filt Rate - Afr Amer 124 mL/min (>60); Ferritin 171 ng/mL (8-252); Globulin 2.4 g/dL (2.2-4.2); Glucose 116 mg/dL (74-106); Iron 135 ug/dL (50-170); Iron Binding Capacity,Total 260 ug/dL (250-450); Potassium 4.2 mmol/L (3.5-5.1); Protein, Total 6.3 g/dL (6.4-8.2); Sodium Level 142 mmol/L (136-145)
[2019-02-09 14:56] LABS: Hemoglobin A1c 5.3 % (4.2-6.3)
[2019-02-10 08:43] LABS: Vitamin B12 203 pg/mL (211-911); Vitamin D,25 Hydroxy 54.2 ng/mL (29.95-100.01)
== END ==
PROVIDERS: Family Provider Family Medicine; PCP Family Medicine; Referring Provider Family Medicine; Visit Provider Family Medicine
DX: I10 Essential (primary) hypertension (principal); D64.9 Anemia, unspecified; E80.6 Other disorders of bilirubin metabolism; M85.80 Other specified disorders of bone density and structure, unspecified site; R73.09 Other abnormal glucose
CPT/HCPCS: 36415; 80048; 80076; 82306; 82607; 82728; 82746; 83036; 83540; 83550; 85025

== ENCOUNTER → 2019-06-02 15:39 | Outpatient (CLI) | payer MEDICARE, OTHER, SELFPAY ==
[2019-06-02 12:21] VITALS: BMI 23.7
== END ==
PROVIDERS: Family Provider Family Medicine; PCP Family Medicine; Referring Provider Physician Assistant Medical; Visit Provider Physician Assistant Medical
DX: J02.9 Acute pharyngitis, unspecified (principal)
CPT/HCPCS: 87070

== ENCOUNTER → 2019-12-17 08:13 | Outpatient (CLI) | payer MEDICARE, OTHER, SELFPAY ==
[2019-06-02 12:21] VITALS: BMI 23.7
[2019-12-17 10:26] LABS: Absolute Lymphocyte Count 3.49 X10^3/uL (0.83-4.51); Absolute Neutrophil Count 4.3 X10^3/uL (2.0-7.7); Basophil# 0.09 X10^3/uL; Eosinophil# 0.12 X10^3/uL; Eosinophils% 1.3 % (0-5); Hematocrit 35.2 % (37-47); Hemoglobin 11.3 g/dL (12.0-15.0); Lymphocyte # 3.49 X10^3/ul (4.0); Lymphocyte % 37.9 % (19-41); Mean Corp Hgb Conc 32.1 g/dL (32-36); Mean Corpuscular Hgb 31.4 pg (27.0-32.0); Mean Corpuscular Volume 97.8 fL (81-99); Mean Platelet Vol. 12.1 fl (6.2-12.0); Monocyte# 1.15 X10^3/uL; Monocyte% 12.5 % (0-10); NRBC Flagged by Analyzer 0 % (0-5); Neutrophil # 4.33 X10^3/uL (2.7-7.7); POSITIVE MORPHOLOGY YES; Platelet Count 314 K/mm3 (150-450); RBC Distribution Width CV 22.1 % (11.6-14.6); RBC Distribution Width SD 80.4 fl (35.1-43.9); White Blood Count 9.2 K/mm3 (4.4-11.0)
[2019-12-17 10:40] LABS: Differential Indicated SCAN CRITERIA MET
[2019-12-17 10:45] LABS: Vitamin B12 1031 pg/mL (211-911)
[2019-12-17 10:53] LABS: AST(SGOT) 15 U/L (15-37); Alanine Aminotransfer ALT/SGPT 19 U/L (13-56); Albumin, Serum 3.9 g/dL (3.2-5.0); Alkaline Phosphatase 75 U/L (45-117); Anion Gap 6 (5-15); BUN 11 mg/dL (7-18); BUN/Creat Ratio 18.4 RATIO (10-20); Bilirubin, Direct 0.42 mg/dL (0.00-0.30); Calcium,Total 8.7 mg/dL (8.5-10.1); Chloride 109 mmol/L (98-107); EST Glomerular Filtration Rate 102 mL/min (>60); Est Glom Filt Rate - Afr Amer 123 mL/min (>60); Ferritin 216 ng/mL (8-252); Globulin 2.5 g/dL (2.2-4.2); Glucose 115 mg/dL (74-106); Iron 142 ug/dL (50-170); Iron Binding Capacity,Total 292 ug/dL (250-450); Phosphorus 3.3 mg/dL (2.5-4.9); Potassium 3.8 mmol/L (3.5-5.1); Protein, Total 6.4 g/dL (6.4-8.2); Sodium Level 140 mmol/L (136-145)
[2019-12-17 11:28] LABS: Anisocytosis 1+
== END ==
PROVIDERS: PCP Family Medicine; Referring Provider Family Medicine; Visit Provider Family Medicine
DX: I10 Essential (primary) hypertension (principal); E80.6 Other disorders of bilirubin metabolism; D64.9 Anemia, unspecified; M85.80 Other specified disorders of bone density and structure, unspecified site; E55.9 Vitamin D deficiency, unspecified
CPT/HCPCS: 36415; 80048; 80076; 82306; 82607; 82728; 82746; 83540; 83550; 84100; 85025

== ENCOUNTER 2020-06-19 10:30 | Outpatient (RCR) | payer MEDICARE, OTHER, SELFPAY ==
[2019-06-02 12:21] VITALS: BMI 23.7
== END 2020-06-19 23:59 ==
LOC: IMMUN 10:30
PROVIDERS: PCP Family Medicine; Visit Provider Family Medicine
DX: Z23 Encounter for immunization (principal)
CPT/HCPCS: 0011A; 0012A; 91301

== ENCOUNTER → 2020-09-24 10:23 | Outpatient (CLI) | payer MEDICARE, OTHER, SELFPAY ==
[2019-06-02 12:21] VITALS: BMI 23.7
[2020-09-24 12:08] LABS: Absolute Lymphocyte Count 3.67 X10^3/uL (0.83-4.51); Absolute Neutrophil Count 5.1 X10^3/uL (2.0-7.7); Basophil# 0.09 X10^3/uL; Basophil% 0.9 % (0-1); Eosinophil# 0.11 X10^3/uL; Eosinophils% 1.1 % (0-5); Hematocrit 36.5 % (37-47); Hemoglobin 11.5 g/dL (12.0-15.0); Lymphocyte # 3.67 X10^3/ul (0.83-4.51); Lymphocyte % 35.5 % (19-41); Mean Corp Hgb Conc 31.5 g/dL (32-36); Mean Corpuscular Hgb 30.3 pg (27.0-32.0); Mean Corpuscular Volume 96.3 fL (81-99); Mean Platelet Vol. 11.5 fl (6.2-12.0); Monocyte# 1.35 X10^3/uL; NRBC Flagged by Analyzer 0.2 % (0-5); Neutrophil % 49.2 % (47-70); POSITIVE MORPHOLOGY YES; Platelet Count 304 K/mm3 (150-450); RBC Distribution Width CV 23.9 % (11.6-14.6); Red Blood Count 3.79 M/mm3 (4.2-5.4); White Blood Count 10.4 K/mm3 (4.4-11.0)
[2020-09-24 12:10] LABS: Differential Indicated SCAN CRITERIA MET
[2020-09-24 12:41] LABS: ALB/GLOB Ratio 1.7 RATIO (0.9-2.4); AST(SGOT) 19 U/L (15-37); Alanine Aminotransfer ALT/SGPT 28 U/L (13-56); Alkaline Phosphatase 92 U/L (45-117); Anion Gap 6 (5-15); Anisocytosis 1+; BUN 11 mg/dL (7-18); BUN/Creat Ratio 18.5 RATIO (10-20); Calcium,Total 9.2 mg/dL (8.5-10.1); Chloride 108 mmol/L (98-107); EST Glomerular Filtration Rate 102 mL/min (>60); Est Glom Filt Rate - Afr Amer 124 mL/min (>60); Globulin 2.3 g/dL (2.2-4.2); Glucose 104 mg/dL (74-106); Magnesium 2.4 mg/dL (1.6-2.6); Potassium 4.1 mmol/L (3.5-5.1); Protein, Total 6.3 g/dL (6.4-8.2); Sodium Level 140 mmol/L (136-145)
== END ==
PROVIDERS: PCP Family Medicine; Referring Provider Family Medicine; Visit Provider Family Medicine
DX: I48.91 Unspecified atrial fibrillation (principal)
CPT/HCPCS: 36415; 80053; 83735; 84443; 85025

== ENCOUNTER → 2020-10-06 13:49 | Outpatient (CLI) | payer MEDICARE, OTHER, SELFPAY ==
[2019-06-02 12:21] VITALS: BMI 23.7
--- NOTE | 2020-10-06 13:50 | ECHOD_ITS ---
Reason For Study: AFIB Procedure This was a 2D Doppler, Color Flow transthoracic echocardiogram. The exam was of adequate technical quality. Exam performed in department. Left Ventricle Normal LV size. Left ventricular systolic function is normal. The estimated ejection fraction is 60 %. Unable to assess diastolic dysfunction. No regional wall motion abnormalities noted. Right Ventricle Normal RV size. Normal systolic function. Atria The left atrium is severely enlarged. The right atrium is moderately enlarged. Based upon the color- flow Doppler images obtained a left to right interatrial shunt potentially compatible with a small PFO versus ASD cannot be excluded. Mitral Valve There is no mitral annular calcification. Normal mitral valve. Moderate (2+) mitral valve insufficiency. Tricuspid Valve Poor coaptation of the tricuspid valve. Moderate (2+) tricuspid valve insufficiency. Right ventricular systolic pressure estimated to be 48 mmHg. Aortic Valve Trisinus/trileaflet aortic valve. Mild diffuse aortic valve thickening. Mild focal aortic valve calcification. Pulmonic Valve The pulmonic valve is not well visualized. Mild pulmonic valve insufficiency identified. Great Vessels Normal sized aortic root. Pericardium/Pleural Trivial pericardial effusion. There are no echocardiographic indications of cardiac tamponade. MMode/2D Measurements & Calculations LVIDd: 4.3 cm IVSd: 0.81 cm Ao root diam: 3.5 cm LVIDs: 2.7 cm LVPWd: 0.95 cm RVDd: 3.6 cm FS: 37.9 % LAV(MOD-bp): 85.9 ml EDV(MOD-sp4): 57.7 ml EDV(MOD-sp2): 63.4 ml LAV(MOD-bp) Indexed: 45.6 ml/m2 ESV(MOD-sp4): 26.1 ml ESV(MOD-sp2): 25.2 ml LAV(MOD-sp2): 76.1 ml EF(MOD-sp4): 54.7 % EF(MOD-sp2): 60.2 % LAV(MOD-sp4): 89.3 ml SV(MOD-sp4): 31.6 ml SV(MOD-sp2): 38.1 ml LA A4 area: 27.2 cm2 LA dimension(2D): 4.5 cm RA A4 area: 22.0 cm2 Time Measurements MV dec time: 0.13 sec Doppler Measurements & Calculations MV E max ashley: 152.3 cm/sec Ao V2 max: 119.1 cm/sec LV V1 max: 88.0 cm/sec Ao max P.7 mmHg LV V1 max P.1 mmHg PA V2 max: 85.8 cm/sec PI end-d ashley: 94.0 cm/sec TR max ashley: 336.0 cm/sec TR max P.4 mmHg ECHO/Echo Complete Interpretation Summary Left ventricular systolic function is normal. The estimated ejection fraction is 60 %. The left atrium is severely enlarged. The right atrium is moderately enlarged. Moderate (2+) mitral valve insufficiency. Poor coaptation of the tricuspid valve. Moderate (2+) tricuspid valve insufficiency. Mild diffuse aortic valve thickening. Mild focal aortic valve calcification. Mild pulmonic valve insufficiency identified. Trivial pericardial effusion. There are no echocardiographic indications of cardiac tamponade. Right ventricular systolic pressure estimated to be 48 mmHg. Unable to assess diastolic dysfunction. Based upon the color-flow Doppler images obtained a left to right interatrial s barger potentially compatible with a small PFO versus ASD cannot be excluded. Comment: Consider further evaluation of interatrial septal anatomy/physiology w ith agitated saline contrast study and/or transesophageal echocardiogram-if clinically indicated. Ordering Physician: Blue Lambert Referring Physician: Blue Lambert Performed By: Arabella Agosto, RAMANDEEP, RVT
== END ==
PROVIDERS: PCP Family Medicine; Referring Provider Family Medicine; Visit Provider Family Medicine
DX: I48.91 Unspecified atrial fibrillation (principal); I08.3 Combined rheumatic disorders of mitral, aortic and tricuspid valves
CPT/HCPCS: 93306

== ENCOUNTER → 2020-10-13 14:21 | Outpatient (CLI) | payer MEDICARE, OTHER, SELFPAY ==
[2019-06-02 12:21] VITALS: BMI 23.7
[2020-10-13 14:23] LABS: Mucous, Urine 0 SEEN /hpf (<or=2+)
[2020-10-13 15:30] LABS: Color, Urine Yellow (Yellow); Glucose, Dipstick Normal (Normal); Ketone-Dipstick 5 mg/dl (Negative); Leukocyte Esterase-Dipstick 500 /ul (Negative); Nitrite-Dipstick Positive (Negative); Occult Blood-Urine 250 /ul (Negative); Protein-Dipstick 100 mg/dl (Negative); Specific Gravity, Urine 1.025 (1.002-1.030); Urine Bilirubin Dipstick Negative (Negative); Urine Clarity Cloudy (Clear); Urine Urobilinogen Normal (Normal)
[2020-10-13 15:48] LABS: Bacteria RARE /hpf (None Seen); Red Blood Cells-Urine > 100 SEEN /hpf (0-5); Squamous Epithelial Cells - UA 0-5 SEEN /hpf (5-10); White Blood Cells >100 SEEN /hpf (0-5)
== END ==
PROVIDERS: PCP Family Medicine; Visit Provider Nurse Practitioner Family
DX: N39.0 Urinary tract infection, site not specified (principal)
CPT/HCPCS: 81001; 87077; 87086; 87088; 87186

== ENCOUNTER 2020-12-09 10:51 | Day surgery (SDC) | payer MEDICARE, OTHER, SELFPAY ==
[2020-11-27 14:10] VITALS: BMI 24.5
[2020-11-27 16:54] LABS: Anion Gap 6 (5-15); BUN 11 mg/dL (7-18); Calcium,Total 9.3 mg/dL (8.5-10.1); Chloride 106 mmol/L (98-107); Creatinine, Serum 0.61 mg/dL (0.55-1.02); EST Glomerular Filtration Rate 99 mL/min (>60); Est Glom Filt Rate - Afr Amer 120 mL/min (>60); Glucose 110 mg/dL (74-106); Potassium 3.9 mmol/L (3.5-5.1); Sodium Level 141 mmol/L (136-145)
--- NOTE | 2020-12-05 09:15 | RAD_ITS ---
EXAM: XR CHEST, 2 VIEWS : 1935 CLINICAL INDICATION: Cardioversion TECHNIQUE: Frontal and lateral views of the chest. This report was created using [employer] report generation technology. COMPARISON: 08/03/2018 FINDINGS: LUNGS AND PLEURAL SPACES: Unremarkable. No consolidation or edema. No pneumothorax. No effusion. HEART: Unremarkable. Cardiac silhouette not enlarged. MEDIASTINUM: Central airways and mediastinal contour are unremarkable. BONES/JOINTS: Unremarkable. SOFT TISSUES: Unremarkable. RAD/Chest PA and Lateral IMPRESSION: No radiographic evidence of acute cardiopulmonary disease. at 1512 Reported and signed by: Lito Solo MD Electronically Signed: Lito Solo MD at 15:11 EDT Tel , Service support ,
[2020-12-08 10:45] VITALS: BMI 24.5
--- NOTE | 2020-12-08 17:54 | PCM.HP.BLA ---
History and Physical Date of Admission: 12/09/20 [facility] [id number] [place], [place] [id number] OFFICE VISITDate of Service: 11/27/20 MR#:[id number]:[id number]: ANANTH DAVE #:[id number]:1935 Provider:Dr. Charlie Stephens MDAge/Sex: 85/F [facility] H[facility] HPI History of Present Illness Surgical H&P: Yes Details: This is an 85-year-old white female who presents today for outpatient cardiovascular consultation with findings of atrial fibrillation, MR, and an intra-atrial shunt (PFO versus ASD) superimposed upon hypertension. She denies any history of cardiovascular disease and states she has had no ongoing issues of classic angina pectoris or CHF/pulmonary edema. There has been no orthopnea, PND, near-syncope, or syncope. She has not noted any palpitations or rapid rates. She states she was on amlodipine therapy and had bilateral ankle edema. Her medications were adjusted and she was placed on HCTZ therapy and her amlodipine was discontinued. Her ankle edema has all but resolved. During her evaluation she was found to be in atrial fibrillation. She notes her medications were adjusted with respect to her beta-rosalee and she was placed on anticoagulant therapy which she has been on for approximately 2 months now without interruption. She had previous laboratory studies. She had no acute electrolyte issues or thyroid issues to explain her findings. She underwent a transthoracic echocardiogram with the findings as noted below. They were reviewed with her. She had a follow-up ECG in the office today. She remains in atrial fibrillation with poor R wave progression. Intake Vital Signs 11/27/20 14:10 Height 5 ft 8 in Weight: 161 lb 8 oz BMI 24.5 BP 170/84 H Blood Pressure Location Lt brachial Position Sitting Respiration 18 Pulse 92 Pulse Source Auscultation Intake Visit Reasons: A-fib/Ref. Petra Shoe Laster Required: No Accompanied by: Self Allergies amoxicillin [From Trimox] Allergy (Severe, Verified 11/27/20 14:13) throat swelling lisinopril Allergy (Severe, Verified 11/27/20 14:13) Angioedema ciprofloxacin [From Cipro] Adverse Reaction (Verified 11/27/20 14:13) GI upset diphenhydramine [From Benadryl] Adverse Reaction (Verified 11/27/20 14:13) jittery Medications apixaban 5 mg tablet 5 mg PO BID 11/13/20 [History Confirmed 11/27/20] calcium-vitamin D3-vitamin K 500 mg-500 unit-40 mcg chewable tablet 1 tab PO DAILY tab 11/13/20 [History Confirmed 11/27/20] cholecalciferol (vitamin D3) 125 mcg (5,000 unit) tablet 125 mcg PO .every other day tab 11/13/20 [History Confirmed 11/27/20] cyanocobalamin (vitamin B-12) 1,000 mcg tablet 1,000 mcg PO .every other day tab 11/13/20 [History Confirmed 11/27/20] hydrochlorothiazide 12.5 mg tablet 12.5 mg PO DAILY 11/27/20 [History Confirmed 11/27/20] metoprolol succinate 100 mg tablet,extended release 24 hr 100 mg PO DAILY 11/27/20 [History Confirmed 11/27/20] [facility] Medical History (Updated 11/27/20 @ 14:[address] Charlie Stephens MD) Acquired atrial septal defect (ASD) Atrial fibrillation Bee sting reaction Bronchitis Cystic thyroid nodule Essential hypertension Fatigue Hemorrhoid Multiple thyroid nodules Murmur, heart Non-rheumatic mitral regurgitation Non-rheumatic tricuspid valve insufficiency Normocytic anemia Osteopenia Pericardial effusion Pseudophakia Surgical History History of cholecystectomy History of tonsillectomy History of tubal ligation S/P colonoscopy Family History Mother Diabetes Father Myocardial infarction CAD (coronary artery disease) Social History Smoking Status: Never smoker alcohol intake: current details: glass wine daily substance use type: does not use caffeine: Yes Type: coffee Number of servings: 1 ROS Const Const: Positive for fatigue; Negative for weakness, frequent falls, excessive sweating, weight gain or weight loss Eyes Eyes: Negative for transient loss of vision, blurry vision or change in vision ENT ENT: Negative for dizziness or balance problems Cardio Chest Pain: No Palpitations: No Edema: None Muscle aches with walking: None Resp Respiratory: Negative for SOB with activity or SOB at rest GI GI: Negative vomiting or vomiting blood/hematemesis : Negative for hematuria Musc Musc: Negative for muscle aches/ myalgia, muscle weakness, joint pain or balance problems Skin Skin: Negative non-healing lesions or rash Neuro Neuro: Negative for dizziness, lightheadedness, orthostatic symptoms, frequent falls, weakness or blurry vision Jimmy Hematologic/Lymphatic: Negative for easy bleeding Endo Endo: Positive for fatigue; Negative for excessive sweating Psych Psych: Negative for anxiety or depression Allergy Allergy/Immunology: Negative for hives and Negative for rash Cardiology Exam Const Appearance: cooperative, healthy appearing, comfortable, no acute distress, well developed and well groomed Nutritional Appearance: average body habitus Orientation: alert, awake and oriented x3 Head Head: normal to inspection, normocephalic and atraumatic Ears: hearing grossly normal bilaterally Nose: external nose normal Face and Sinus: face symmetric Eyes Eyelids: eyelids normal Conjunctivae: conjunctivae normal Pupils: PERRL EOM: EOM intact bilaterally Neck Neck: normal visual inspection and full ROM Carotids: normal carotid upstroke Chest Chest inspection: normal inspection of the chest, symmetric chest movement and normal respiratory effort Auscultation: Bilateral: Clear to Auscultation Cardio Palpation: normal PMI Rhythm: irregularly irregular Heart sounds: S1 normal and S2 normal Murmur: Grade 2/6, soft, mid systolic and LLSB GI GI: normal to inspection, soft and bowel sounds present Neuro General: patient alert, patient awake, patient oriented x3 and moves all extremities Skin Skin: no rashes or lesions noted Extremities Pulses: Normal: Right Radial Pulse and Left Radial Pulse Lower Extremity Edema: None: Bilateral Psych Psychological: normal affect Assessment and Plan Assessment and Plan (1) Atrial fibrillation: Status: Acute Qualifiers: Atrial fibrillation type: unspecified Qualified Code(s): I48.91 - Unspecified atrial fibrillation Orders: Orders: 12 Lead EKG performed by [facility] Today Cardioversion Today Basic Metabolic Profile (BMP) Today Plan - Dr. Charlie Stephens MD: At the present time she will continue rate control therapy and anticoagulant therapy. She was offered further evaluation with an attempt at regaining sinus rhythm with synchronized biphasic DC cardioversion. The procedure and risk were discussed with her. She was agreeable to this approach. (2) Non-rheumatic mitral regurgitation: Status: Acute Orders: Orders: 12 Lead EKG performed by [facility] - Dr. Charlie Stephens MD: She will continue to be followed by history, exam, and echocardiographic studies as deemed appropriate. (3) Non-rheumatic tricuspid valve insufficiency: Status: Acute Orders: Orders: 12 Lead EKG performed by [facility] - Dr. Charlie Stephens MD: She will continue evaluation care as noted above. (4) Acquired atrial septal defect (ASD): Status: Acute Plan - Dr. Charlie Stephens MD: Based upon her echocardiographic studies there were concerns that she may have a PFO versus ASD. This was discussed with her. At the present time she does not wish to pursue further diagnostic studies/intervention with respect to this issue barring a change in her clinical course. (5) Essential hypertension: Status: Acute Orders: Orders: 12 Lead EKG performed by [facility] - Dr. Charlie Stephens MD: Her blood pressure is elevated today. She brings with her her blood pressures from home. Overall her blood pressures from home appear to be reasonably well controlled with the exception of intermittent findings of isolated systolic hypertension-mild. She was asked to continue to monitor her blood pressures at home. Depending upon her blood pressure trends she may need further adjustment of her antihypertensive regimen. Plan Details Additional Comments: Thank you for allowing me to participate in the care of your patient. Please don't hesitate to call if any issues arise. This note was generated using a voice recognition system and there may be incorrect words, spelling or punctuation that were not noted when reviewing the office note prior to saving. Follow Up: 3 Months (PFM) COVID (Procedure Consent) Procedure Criteria Procedure Criteria: Yes Elective The surgeon/proceduralist and patient have discussed in detail the risk of exposure to and/or potential harm posed by the COVID-19 virus with having a surgery/procedure at this time versus the risk of delaying the surgery/procedure. It is not possible to know either the risk of delaying the surgery or procedure or chance of getting an infection with perfect accuracy, but a joint decision was made between the patient and the surgeon/proceduralist to proceed at this time with the scheduled surgery/procedure as indicated on the consent form. Coding Level of Care Code Off vis,new,level 4 Diagnoses Atrial fibrillation I48.91 Atrial fibrillation type: unspecified Non-rheumatic mitral regurgitation I34.0 Non-rheumatic tricuspid valve insufficiency I36.1 Acquired atrial septal defect (ASD) I51.0 Essential hypertension I10 Coding Level of Care Code Off vis,new,level 4 Diagnoses Atrial fibrillation I48.91 Atrial fibrillation type: unspecified Non-rheumatic mitral regurgitation I34.0 Non-rheumatic tricuspid valve insufficiency I36.1 Acquired atrial septal defect (ASD) I51.0 Essential hypertension I10 Supplemental Info Supplemental Information Transthoracic echocardiogram: [id number] Summary Left ventricular systolic function is normal. The estimated ejection fraction is 60 %. The left atrium is severely enlarged. The right atrium is moderately enlarged. Moderate (2+) mitral valve insufficiency. Poor coaptation of the tricuspid valve. Moderate (2+) tricuspid valve insufficiency. Mild diffuse aortic valve thickening. Mild focal aortic valve calcification. Mild pulmonic valve insufficiency identified. Trivial pericardial effusion. There are no echocardiographic indications of cardiac tamponade. Right ventricular systolic pressure estimated to be 48 mmHg. Unable to assess diastolic dysfunction. Based upon the color-flow Doppler images obtained a left to right interatrial shunt potentially compatible with a small PFO versus ASD cannot be excluded. Comment: Consider further evaluation of interatrial septal anatomy/physiology with agitated saline contrast study and/or transesophageal echocardiogram-if clinically indicated. Labs: LDL Cholesterol 73 mg/dL (0-130) HDL Cholesterol 65 mg/dL (40-) Triglycerides 64 mg/dL (-199) VLDL Cholesterol 13 mg/dL (5-40) Diagnostics: Electrocardiogram Echocardiogram Chest X-Ray Pulmonary: No Data to Display 11/27/20 7527<Electronically signed by Charlie Stephens MD>Date Charlie Stephens MD Cosigner Signature:Date (if applicable) CC: Dr. Blue Lambert MD ~ I have re-examined the patient. There are no clinical changes since date of exam.
--- NOTE | 2020-12-09 12:53 | PRO.PCM_ITS ---
Procedure Report Date of Procedure: 12/09/20 CONSCIOUS SEDATION REPORT DATE OF SERVICE: December 09, 2020 BRIEF HISTORY OF PRESENT ILLNESS: The patient is an 85-year-old female who presented to [facility] for an elective outpatient cardioversion due to underlying atrial fibrillation. The patient is currently anticoagulated on Eliquis. Her last surface echocardiogram revealed an ejection fraction of approximately 60%. The patient denies any prior anesthetic complications. She additionally denies a history of COPD, asthma or obstructive sleep apnea. PHYSICAL EXAMINATION: VITAL SIGNS: Reviewed and were acceptable. GENERAL: The patient is an elderly female, in no apparent distress, speaking in full sentences. HEENT: Normocephalic, atraumatic. Mucous membranes are moist and pink. Good mouth opening noted. Trachea is midline. CHEST: S1, S2 irregularly irregular. No murmurs, rubs or gallops were noted. LUNGS: Clear to auscultation bilaterally without appreciable wheezes, rales or rhonchi. ABDOMEN: Soft, nontender, nondistended. Positive bowel sounds. EXTREMITIES: There is no clubbing, cyanosis or edema. ASA Class: II DESCRIPTION OF PROCEDURE: After confirmation of informed consent, the patient's anesthesia plan was reviewed in detail. Propofol was chosen. Risks and benefits were reviewed and the patient agreed to proceed. At 1236, the patient was given 40 mg of propofol. The patient achieved an appropriate level of sedation and was given a 200 joule synchronized cardioversion by Dr. Stephens at the bedside. This was successful in achieving normal sinus rhythm. The patient was monitored until 1247, at which time she reached her baseline mental status and function. The patient tolerated the procedure well. COMPLICATIONS: None ESTIMATED BLOOD LOSS: None RECOMMENDATIONS: Okay to recover in usual fashion. Procedures Pulmonary CF Procedures Pulmonary: [id number] Con Sedation
--- NOTE | 2020-12-09 13:02 | CARDIOVERS_ITS ---
Cardioversion Cardioversion: Date: 12-09-2020 Procedure: Synchronized Biphasic DC Cardioversion Indications: Atrial fibrillation Consent: Per the Patient Anesthesia: per Dr. Roa of pulmonology and critical care medicine with propofol 40 mg IV push total Procedure: Synchronized Biphasic DC Cardioversion: 200 J x 1: Result: Sinus rhythm; PACs Complications: no apparent complications This note was generated with [employer] software. It may contain incorrect words, spelling, and punctuation that were not noted in checking the note before signing.
== END 2020-12-09 13:40 | disposition home or self-care (01) ==
PROVIDERS: PCP Family Medicine; Referring Provider Internal Medicine Cardiovascular Disease; Visit Provider Internal Medicine Cardiovascular Disease
DX: I48.91 Unspecified atrial fibrillation (principal); Q21.1 Atrial septal defect; I34.0 Nonrheumatic mitral (valve) insufficiency; I36.1 Nonrheumatic tricuspid (valve) insufficiency; I10 Essential (primary) hypertension; Z79.01 Long term (current) use of anticoagulants; Z79.899 Other long term (current) drug therapy
CPT/HCPCS: 36415; 71046; 80048; 92960; 93005; J7040

== ENCOUNTER → 2020-12-24 10:44 | Outpatient (CLI) | payer MEDICARE, OTHER, SELFPAY ==
[2020-12-16 11:12] VITALS: BMI 24.5
[2020-12-24 12:08] LABS: Absolute Lymphocyte Count 4.02 X10^3/uL (0.83-4.51); Absolute Neutrophil Count 4.9 X10^3/uL (2.0-7.7); Basophil# 0.07 X10^3/uL; Basophil% 0.7 % (0-1); Eosinophil# 0.12 X10^3/uL; Eosinophils% 1.2 % (0-5); Hematocrit 39.1 % (37-47); Hemoglobin 12.7 g/dL (12.0-15.0); Lymphocyte # 4.02 X10^3/ul (0.83-4.51); Lymphocyte % 39.3 % (19-41); Mean Corp Hgb Conc 32.5 g/dL (32-36); Mean Corpuscular Hgb 30.8 pg (27.0-32.0); Mean Corpuscular Volume 94.9 fL (81-99); Mean Platelet Vol. 11.1 fl (6.2-12.0); Monocyte# 1.14 X10^3/uL; Monocyte% 11.1 % (0-10); NRBC Flagged by Analyzer 0 % (0-5); Neutrophil # 4.85 X10^3/uL (2.7-7.7); Neutrophil % 47.4 % (47-70); POSITIVE MORPHOLOGY YES; Platelet Count 286 K/mm3 (150-450); RBC Distribution Width CV 22.6 % (11.6-14.6); RBC Distribution Width SD 80.3 fl (35.1-43.9); Red Blood Count 4.12 M/mm3 (4.2-5.4); White Blood Count 10.2 K/mm3 (4.4-11.0)
[2020-12-24 12:09] LABS: Differential Indicated SCAN CRITERIA MET
[2020-12-24 12:35] LABS: Vitamin B12 792 pg/mL (211-911); Vitamin D,25 Hydroxy 43.7 ng/mL
[2020-12-24 12:37] LABS: Anisocytosis 1+
[2020-12-24 12:55] LABS: AST(SGOT) 24 U/L (15-37); Alanine Aminotransfer ALT/SGPT 33 U/L (13-56); Albumin, Serum 4.1 g/dL (3.2-5.0); Alkaline Phosphatase 92 U/L (45-117); Anion Gap 7 (5-15); BUN 10 mg/dL (7-18); Bilirubin, Direct 0.31 mg/dL (0.00-0.30); Calcium,Total 9.3 mg/dL (8.5-10.1); Chloride 105 mmol/L (98-107); Creatinine, Serum 0.52 mg/dL (0.55-1.02); EST Glomerular Filtration Rate 118 mL/min (>60); Est Glom Filt Rate - Afr Amer 143 mL/min (>60); Ferritin 170 ng/mL (8-252); Globulin 2.6 g/dL (2.2-4.2); Glucose 93 mg/dL (74-106); Iron 111 ug/dL (50-170); Iron Binding Capacity,Total 319 ug/dL (250-450); Magnesium 2.3 mg/dL (1.6-2.6); Potassium 3.8 mmol/L (3.5-5.1); Protein, Total 6.7 g/dL (6.4-8.2); Sodium Level 140 mmol/L (136-145)
== END ==
PROVIDERS: PCP Family Medicine; Referring Provider Family Medicine; Visit Provider Family Medicine
DX: I10 Essential (primary) hypertension (principal); D64.9 Anemia, unspecified; E80.6 Other disorders of bilirubin metabolism; I48.91 Unspecified atrial fibrillation; M85.80 Other specified disorders of bone density and structure, unspecified site
CPT/HCPCS: 36415; 80048; 80076; 82306; 82607; 82728; 82746; 83540; 83550; 83735; 85025

== ENCOUNTER 2021-08-04 13:49 | Outpatient (CLI) | payer MEDICARE, OTHER, SELFPAY ==
--- NOTE | 2021-08-04 13:55 | BD_ITS ---
STUDY: DUAL ENERGY X-RAY ABSORPTIOMETRY / DXA REASON FOR EXAM: Female, 86 years old. 733.90OsteopeniaBONE DENSITY REASON FOR EXAM TECHNIQUE: Bone Mineral Density (BMD) measurements of lumbar spine and bilateral hips were obtained. COMPARISON: Comparison is made with prior study dated 08/02/2017. FINDINGS: Lumbar Spine (L1-L4): g/cm2 (1.230) / T-score (1.7) / Z-score (4.5) Findings are suggestive of normal bone density with a low fracture risk. Left Femur Total: g/cm2 (0.867) / T-score (0.6) / Z-score (1.7) Left Femoral Neck: g/cm2 (0.637) / T-score (-1.9) / Z-score (0.6) Right Femur Total: g/cm2 (0.870) / T-score (-0.6) / Z-score (1.7) Right Femoral Neck: g/cm2 (0.668) / T-score (-1.6) / Z-score (0.9) The T-Scores on the most recent prior examination were: Lumbar Spine (L1-L4): There has been improvement of bone density since the previous examination. Left Femur Total: which represents an improvement of 3.7%. Right Femur Total: which represents an improvement of 3.2%. BD/Dexa Bone Density Study IMPRESSION: The patient is considered as outlined below according to World [place] Organization (WHO) criteria with a moderate fracture risk. There has been improvement of bone density since the previous examination. Reference Information: The T-score is the number of standard deviations above or below the standard which is normal for young adults at their peak bone mineral density. The World Health Organization (WHO) interprets the T-scores as follows: Above -1 Normal bone density Between -1 and -2.5 Osteopenia Equal to / or below -2.5 Osteoporosis As a practical clinical guideline, osteopenia may be graded as follows: Mild -1 through -1.5 Moderate -1.6 through -2.0 Severe -2.1 through -2.4 The Z-score is the number of standard deviations above or below age-matched controls. A Z-score of less than -1.5 would be considered abnormal. References: 1. NIH Osteoporosis and Related Bone Diseases www osteo.org 2. International Society for Clinical Densitometry www iscd.org 3. National Osteoporosis Foundation www nof.org Electronically Signed: Kevin Law MD at 12:56 EST ,
== END 2021-08-04 23:59 | disposition home or self-care (01) ==
LOC: OPBD 13:49
PROVIDERS: PCP Family Medicine; Visit Provider Family Medicine
DX: M85.89 Other specified disorders of bone density and structure, multiple sites (principal)
CPT/HCPCS: 77080

== ENCOUNTER → 2021-10-28 | Outpatient (CLI) | payer MEDICARE, OTHER, SELFPAY ==
--- NOTE | 2021-10-28 13:27 | US_ITS ---
STUDY: THYROID ULTRASOUND REASON FOR EXAM: Female, 86 years old. History of thyroid nodules TECHNIQUE: Ultrasound evaluation of the thyroid was performed with real-time and static lowe-scale imaging. COMPARISON: Comparison is made with prior study dated 10/12/2018. FINDINGS: RIGHT LOBE: The right lobe of the thyroid gland measures 4.6 cm x 2.3 cm x 2.1 cm. There is a homogeneous echotexture. There is a 9 mm x 7 mm x 5 mm solid/cystic nodule in the upper pole. There is evidence of a 2.8 cm x 2 cm x 2 cm solid and cystic nodule in the lower pole. This is essentially unchanged as compared to prior study. LEFT LOBE: The left lobe of the thyroid gland is mildly enlarged and measures 5 cm x 1 cm x 1.4 cm. There is a homogeneous echotexture. 4 subcentimeter cystic/solid nodules are once again seen scattered throughout the left lobe. The largest measures 6 mm x 4 mm x 4 mm. ISTHMUS: The isthmus measures 1 mm. The regional lymph nodes are normal. US/Thyroid IMPRESSION: Stable examination. Dominant complex solid and cystic nodule in the lower pole of the right lobe of the thyroid measuring 2.8 cm x 2 cm x 2 cm. Biopsy recommended. Electronically Signed: Kevin Law MD at 15:40 EDT ,
== END | disposition home or self-care (01) ==
LOC: US 13:25
PROVIDERS: PCP Family Medicine; Referring Provider Surgery; Visit Provider Surgery
DX: E04.2 Nontoxic multinodular goiter (principal)
CPT/HCPCS: 76536

== ENCOUNTER → 2021-12-30 | Outpatient (CLI) | payer MEDICARE, OTHER, SELFPAY ==
[2021-12-30 12:03] LABS: Absolute Lymphocyte Count 3.58 X10^3/uL (0.83-4.51); Absolute Neutrophil Count 4.1 X10^3/uL (2.0-7.7); Basophil% 1.1 % (0-1); Eosinophil# 0.14 X10^3/uL; Eosinophils% 1.5 % (0-5); Hematocrit 39.4 % (37-47); Hemoglobin 13.5 g/dL (12.0-15.0); Lymphocyte # 3.58 X10^3/ul (0.83-4.51); Lymphocyte % 39.1 % (19-41); Mean Corp Hgb Conc 34.3 g/dL (32-36); Mean Corpuscular Hgb 33.4 pg (27.0-32.0); Mean Corpuscular Volume 97.5 fL (81-99); Mean Platelet Vol. 10.6 fl (6.2-12.0); Monocyte# 1.24 X10^3/uL; Monocyte% 13.5 % (0-10); NRBC Flagged by Analyzer 0 % (0-5); Neutrophil # 4.08 X10^3/uL (2.7-7.7); Neutrophil % 44.6 % (47-70); POSITIVE MORPHOLOGY YES; Platelet Count 222 K/mm3 (150-450); RBC Distribution Width CV 23.7 % (11.6-14.6); RBC Distribution Width SD 86.4 fl (35.1-43.9); Red Blood Count 4.04 M/mm3 (4.2-5.4); White Blood Count 9.2 K/mm3 (4.4-11.0)
[2021-12-30 12:06] LABS: Differential Indicated SCAN CRITERIA MET
[2021-12-30 12:27] LABS: Vitamin B12 867 pg/mL (211-911); Vitamin D,25 Hydroxy 63.7 ng/mL
[2021-12-30 12:33] LABS: ALB/GLOB Ratio 1.6 RATIO (0.9-2.4); AST(SGOT) 20 U/L (15-37); Alanine Aminotransfer ALT/SGPT 24 U/L (13-56); Alkaline Phosphatase 90 U/L (45-117); Anion Gap 6 (5-15); BUN 9 mg/dL (7-18); BUN/Creat Ratio 14.3 RATIO (10-20); Calcium,Total 9.5 mg/dL (8.5-10.1); Chloride 109 mmol/L (98-107); Cholesterol 108 mg/dL (200); Creatinine, Serum 0.63 mg/dL (0.55-1.02); EST Glomerular Filtration Rate 96 mL/min (>60); Est Glom Filt Rate - Afr Amer 116 mL/min (>60); Globulin 2.5 g/dL (2.2-4.2); Glucose 110 mg/dL (74-106); High Density Lipoprotein 48 mg/dL; Magnesium 2.3 mg/dL (1.6-2.6); Potassium 3.8 mmol/L (3.5-5.1); Protein, Total 6.5 g/dL (6.4-8.2); Sodium Level 140 mmol/L (136-145); Thyroid Stim Hormone (TSH) 3.63 uIU/mL (0.358-3.74); Triglycerides 59 mg/dL; Very Low Density Lipoprotein 12 mg/dL (5-40)
[2021-12-30 12:36] LABS: Anisocytosis 1+
== END | disposition home or self-care (01) ==
LOC: MFPLAB 10:02
PROVIDERS: PCP Family Medicine; Referring Provider Family Medicine; Visit Provider Family Medicine
DX: I10 Essential (primary) hypertension (principal); I48.91 Unspecified atrial fibrillation; E53.8 Deficiency of other specified B group vitamins; E55.9 Vitamin D deficiency, unspecified; R73.09 Other abnormal glucose
CPT/HCPCS: 36415; 80053; 80061; 82306; 82607; 83036; 83735; 84443; 85025

== ENCOUNTER → 2022-01-11 | Outpatient (CLI) | payer MEDICARE, OTHER, SELFPAY ==
--- NOTE | 2022-01-11 15:53 | VDLE_ITS ---
Reason For Study: RLE pain RIGHT GSV is normal. CFV is compressible, spontaneous, competent and demonstrates pulsatile venous flow. FV is compressible, spontaneous, competent and demonstrates pulsatile venous flow. POP V is compressible, spontaneous, competent and demonstrates pulsatile venous flow. T/P Trunk is compressible. PTV is compressible. RT PerV is compressible. Procedure This is a venous duplex using B-mode, color flow and spectral Doppler. Exam performed in department. The exam was diagnostic. A preliminary report was called and/or faxed to Laura Saunders DO @ [phone] @ 4:15 pm. VL/Venous Duplex US, Unilateral Interpretation Summary Deep veins of the right lower extremity are patent and compressible segmentally . There is no evidence of right lower extremity deep vein thrombosis. The right great sapheno us vein appears patent and compressible segmentally. Ordering Physician: Laura Saunders Referring Physician: Blue Lambert Performed By: Cecilia Dorantes, RAMANDEEP, RVT
== END | disposition home or self-care (01) ==
LOC: CVS 15:52
PROVIDERS: PCP Family Medicine; Visit Provider Family Medicine
DX: M79.661 Pain in right lower leg (principal)
CPT/HCPCS: 93971

== ENCOUNTER → 2022-01-18 | Outpatient (CLI) | payer MEDICARE, OTHER, SELFPAY ==
[2022-01-18 14:40] LABS: Anion Gap 7 (5-15); BUN 11 mg/dL (7-18); BUN/Creat Ratio 16.8 RATIO (10-20); Calcium,Total 9.7 mg/dL (8.5-10.1); Chloride 105 mmol/L (98-107); Creatinine, Serum 0.66 mg/dL (0.55-1.02); EST Glomerular Filtration Rate 91 mL/min (>60); Est Glom Filt Rate - Afr Amer 111 mL/min (>60); Glucose 139 mg/dL (74-106); Magnesium 2.3 mg/dL (1.6-2.6); Potassium 3.6 mmol/L (3.5-5.1); Sodium Level 140 mmol/L (136-145)
== END | disposition home or self-care (01) ==
LOC: LAB 13:22
PROVIDERS: PCP Family Medicine; Referring Provider Internal Medicine Cardiovascular Disease; Visit Provider Internal Medicine Cardiovascular Disease
DX: I10 Essential (primary) hypertension (principal); I48.91 Unspecified atrial fibrillation
CPT/HCPCS: 36415; 80048; 83735

== ENCOUNTER → 2022-01-28 | Outpatient (CLI) | payer MEDICARE, OTHER, SELFPAY ==
[2022-01-28 12:56] LABS: ALB/GLOB Ratio 1.5 RATIO (0.9-2.4); AST(SGOT) 16 U/L (15-37); Alanine Aminotransfer ALT/SGPT 25 U/L (13-56); Albumin, Serum 3.8 g/dL (3.2-5.0); Alkaline Phosphatase 90 U/L (45-117); Anion Gap 6 (5-15); BUN 8 mg/dL (7-18); BUN/Creat Ratio 13.5 RATIO (10-20); Calcium,Total 9.1 mg/dL (8.5-10.1); Chloride 103 mmol/L (98-107); Creatinine, Serum 0.59 mg/dL (0.55-1.02); EST Glomerular Filtration Rate 103 mL/min (>60); Est Glom Filt Rate - Afr Amer 124 mL/min (>60); Globulin 2.5 g/dL (2.2-4.2); Glucose 99 mg/dL (74-106); Potassium 3.7 mmol/L (3.5-5.1); Protein, Total 6.3 g/dL (6.4-8.2); Sodium Level 138 mmol/L (136-145)
== END | disposition home or self-care (01) ==
LOC: MFPLAB 10:27
PROVIDERS: PCP Family Medicine; Visit Provider Family Medicine
DX: R60.0 Localized edema (principal); R73.09 Other abnormal glucose
CPT/HCPCS: 80053; 83036

== ENCOUNTER → 2022-01-30 | Outpatient (CLI) | payer MEDICARE, OTHER, SELFPAY ==
--- NOTE | 2022-01-30 10:53 | US_ITS ---
STUDY: ABDOMINAL ULTRASOUND REASON FOR EXAM: Female, 86 years old. Right lower extremity edema with negative DVT study, concern for intra-abdominal mass. TECHNIQUE: Transabdominal ultrasound was performed with real-time and static lowe scale imaging. TECHNICAL QUALITY: Adequate. COMPARISON: None. FINDINGS: Liver: The liver measures 17.4 cm. There is normal echogenicity of the liver. The bile ducts are within normal limits. There is hepatic color flow. The direction of portal flow is hepatopetal. There is no demonstrated mass lesion. There is increased vascularity inferior to the liver. Gallbladder: The patient is status post cholecystectomy. Common Bile Duct (C.B.D.): The common bile duct measures 4 mm. Pancreas: Normal size of the head, body and tail of the pancreas. There is somewhat increased echogenicity of the pancreas. There is no demonstrated pancreatic mass or cyst. Spleen: Normal size of the spleen. The spleen measures 9.8 cm. Right Kidney: Normal size of the right kidney. The right kidney measures 11.2 cm. Normal renal cortex. The right cortex measures no cm. There is no demonstrated renal mass or cyst. There is no right hydronephrosis. Left Kidney: Normal size of the left kidney. The left kidney measures 11.3 cm. Normal renal cortex. The left cortex measures 0.4 cm. There is no demonstrated renal mass or cyst. There is no left hydronephrosis. Aorta: The proximal abdominal aorta measures about 12 cm transverse diameter. It measures about 1 cm mid aspect and 1.2 cm distally. Atherosclerotic calcifications are seen. There is no demonstrated abdominal aortic aneurysm. I.V.C.: The IVC is patent. There is no ascites. US/Abdomen Complete IMPRESSION: 1. Status post cholecystectomy. 2. No focal mass is seen. Electronically Signed: Harry Naylor MD at 14:00 EDT ,
== END | disposition home or self-care (01) ==
LOC: US 10:52
PROVIDERS: PCP Family Medicine; Referring Provider Family Medicine; Visit Provider Family Medicine
DX: R60.0 Localized edema (principal); Z90.49 Acquired absence of other specified parts of digestive tract
CPT/HCPCS: 76700

== ENCOUNTER 2022-03-10 13:30 | Outpatient (RCR) | payer MEDICARE, OTHER, SELFPAY ==
--- NOTE | 2022-01-06 16:03 | HP.PTEVAL ---
Patient's Visit Information ANANTH DAVE is a 86 year old F referred to Physical Therapy by Dr. Blue Lambert MD with a diagnosis of physical debility. Date of Evaluation: 01/06/22 Physical Therapist: FRANNY Roberson - Visit Plan Frequency: 2x /Week Duration: 2 Months Plan: 2X/ week for 8 weeks for LE strength, functional strength, balance activities including head turns and compliant and non-complaint surfaces, gait training, endurance with HEP to continue on own to build endurance and strength - Subjective Pt reports that her problems is that this winter she started with a bad sinus infection. Before that she walked a few miles everyday. As soon as the sinus infection cleared she got bronchitis and then a viral infection and was out of commission for 8-10 weeks. She feels that her legs suffered and she can not walk very far (like 1/2 block) and then her legs feel weak from the legs down. She is gaining weight and she is tired and she not herself. She has blood work, they have not checked her circulation. If she stands there for a little bit and the weakness in her legs will come back. She has some normal old age back pain and she has no leg pain. She does get SOB with walking. She is trying to walk 3x/ DAY 1/2 block. She was just at the heart Dr last week and he said all looks good. - Objective Gait: Walks with short strides and slight veering. FGA: 16. LE MMT: hip flex 9# and L 10.2# and R knee ext 11.2 and L 10.4 and R knee flex 12.3 and L 10#. CATSIB: 95. Sit to Stand: Needs to use arms to get out of chair. Was able with a struggle to get up from the chair with hands on her thighs. Stairs: Up and down the stairs recip with 1 hand rail - Balance/Special Test Scores Functional Gait Assessment Score: 16 % Disability: 46.6700 CATSIB Score (Max score 120 seconds): 95 Lower Extremity Functional Score: 37 - Goals Goal 1:: I HEP Goal Time Frame: 6-8 Weeks Goal 2:: Increase CATSIB by 5 points to decrease fall risk (score at eval was 95) Goal Time Frame: 6-8 Weeks Goal 3:: Increase FGA by 5 points to decrease fall risk (score was 16 at the time of the eval). Goal Time Frame: 6-8 Weeks Goal 4:: Be able to get up out of the chair without the use of her UE's Goal Time Frame: 6-8 Weeks Goal 5:: Increase LE strength (at time of the eval:LE MMT: hip flex 9# and L 10.2# and R knee ext 11.2 and L 10.4 and R knee flex 12.3 and L 10#). Goal Time Frame: 6-8 Weeks Goal 6:: Be able to walk to mailbox and back without having to stop and rest. Goal Time Frame: 6-8 Weeks - Rehabilitation Potential Rehabilitation Potential: Good - Anticipated Interventions Patient/Client Instruction: Educate patient on: Condition, Plan of Care For the Purpose of:: To improve muscle performance and motor function, To improve ability to perform ADL's, To increase tolerance to activity/condition/position, To improve performance and independence with ADL's, To decrease level of supervision to perform tasks, To improve ability of physical actions for home/community/work/leisure, To improve gait and locomotor functions, To improve health of tissue, To improve endurance, To improve balance, To improve safety with gait Therapeutic Exercise to Include: Strength training, Endurance training, Balance training, Body mechanics, Postural training, Gait and locomotor training, Neuromotor development For the Purpose of:: To increase oxygenation perfusion, To improve muscle performance and motor function, To improve ability to perform ADL's, To increase tolerance to activity/condition/position, To improve performance and independence with ADL's, To decrease level of supervision to perform tasks, To improve ability of physical actions for home/community/work/leisure, To improve gait and locomotor functions, To improve health of tissue, To decrease soft tissue restriction, To increase flexibility/ROM, To improve endurance, To improve balance, To improve safety with gait Functional Training to Include: Gait training For the Purpose of:: To improve gait and locomotor functions, To improve safety with gait Thank you for the opportunity to evaluate your patient. For Medicare and Medicare HMO plans, please review the plan of care and approve it. It will need to be FAXED BACK to us at [phone] for Medicare purposes. For Medicare only, by signing this I certify the plan of care. Please let me know if there are questions or concerns regarding this plan of care. Physician Signature: Date:
--- NOTE | 2022-02-10 15:26 | HP.PTREVAL_ITS ---
Dr. Blue Lambert MD, It has been my pleasure to treat ANANTH DAVE over the last 9 visits for physical debility. Please see the progress note below for an update on the physical therapy plan of care! Subjective: Pt feels stronger. She reports that her balance is not good especially when she was in here walking and turning her head. She notices that her balance is off when she gets up in the middle of the night. Pt wants to continue so that she can go out this winter and not feel like she is going to fall on her face. Objective/Function: Sit to stand: able to get up without using her arms. Pt reports that she is able to walk to the mailbox and back without any issue. She is stretching at home. LE MMT: R hip flex 14# and L 12.8# and R knee ext 14.7 and L 14.9 and R knee flex 12.8 and L 13.6#). CATSIB 100. FGA 16 Plan Plan: Focus on static and dynamic balance with compliant and non complaint surfaces with head turns. 2X/ week for 8 weeks for LE strength, functional strength, balance activities including head turns and compliant and non- complaint surfaces, gait training, endurance with HEP to continue on own to build endurance and strength Balance/Gait/Functional tests - Balance/Special Test Scores Functional Gait Assessment Score: 16 % Disability: 46.6700 CATSIB Score (Max score 120 seconds): 100 Lower Extremity Functional Score: 58 Goals Goal 1:: I HEP Goal Time Frame: 6-8 Weeks Goal Progress: Progressing Goal 2:: Increase CATSIB by 10 points to decrease fall risk (score at eval was 95 and 100 at reeval) Goal Time Frame: 6-8 Weeks Goal Progress: Progressing Goal 3:: Increase FGA by 5 points to decrease fall risk (score was 16 at the time of the eval). Goal Time Frame: 6-8 Weeks Goal 4:: Be able to get up out of the chair without the use of her UE's Goal Time Frame: 6-8 Weeks Goal Progress: Goal Met Goal 5:: Increase LE strength (at time of the eval:LE MMT: hip flex 9# and L 10.2# and R knee ext 11.2 and L 10.4 and R knee flex 12.3 and L 10#). Goal Time Frame: 6-8 Weeks Goal Progress: Goal Met Goal 6:: Be able to walk to mailbox and back without having to stop and rest. Goal Time Frame: 6-8 Weeks Goal Progress: Goal Met Anticipated Interventions Patient/Client Instruction: Educate patient on: Condition, Plan of Care For the Purpose of:: To improve muscle performance and motor function, To improve ability to perform ADL's, To increase tolerance to activity/condition/position, To improve performance and independence with ADL's, To decrease level of supervision to perform tasks, To improve ability of physical actions for home/community/work/leisure, To improve gait and locomotor functions, To improve health of tissue, To improve endurance, To improve balance, To improve safety with gait Therapeutic Exercise to Include: Strength training, Endurance training, Balance training, Body mechanics, Postural training, Gait and locomotor training, Neuromotor development For the Purpose of:: To increase oxygenation perfusion, To improve muscle performance and motor function, To improve ability to perform ADL's, To increase tolerance to activity/condition/position, To improve performance and independence with ADL's, To decrease level of supervision to perform tasks, To improve ability of physical actions for home/community/work/leisure, To improve gait and locomotor functions, To improve health of tissue, To decrease soft tissue restriction, To increase flexibility/ROM, To improve endurance, To improve balance, To improve safety with gait Functional Training to Include: Gait training For the Purpose of:: To improve gait and locomotor functions, To improve safety with gait Please do not hesitate to contact me at [phone] by phone or if you have questions or concerns regarding this new plan of care! Sincerely, FRANNY Roberson
--- NOTE | 2022-03-10 13:51 | HP.PTDCSUM ---
It has been my pleasure to treat ANANTH DAVE referred by Dr. Blue Lambert MD, with the diagnosis of physical debility for a total of 18 visit(s). Discharge Date: 03/10/22 Please see the following information for a summary of their discharge status. Subjective: Pt feels that she is doing better. Now she can walk up the street and back and around. She still has trouble with walking heel to toe and sometimes with turning head L and R. She is working on things at home that she has been given here. Pt enjoys the stretching and will keep up with them at home R calf Pain Intensity (Out of 10): 0 % Improvement: 90 Objective/Function: CATSIB (95): 117/120. FGA (16): 23 Goal 1:: I HEP Goal Progress: Progressing Goal 2:: Increase CATSIB by 10 points to decrease fall risk (score at eval was 95 and 100 at reeval) Goal Progress: Goal Met Goal 3:: Increase FGA by 5 points to decrease fall risk (score was 16 at the time of the eval). Goal Progress: Goal Met Goal 4:: Be able to get up out of the chair without the use of her UE's Goal Progress: Goal Met Goal 5:: Increase LE strength (at time of the eval:LE MMT: hip flex 9# and L 10.2# and R knee ext 11.2 and L 10.4 and R knee flex 12.3 and L 10#). Goal Progress: Goal Met Goal 6:: Be able to walk to mailbox and back without having to stop and rest. Goal Progress: Goal Met Plan: DC PT to HEP Discharge Comments: DC PT to HEP If there are questions or concerns regarding this patient's physical therapy, please feel free to call me at [phone]. Thank you for the referral of this patient. Sincerely, Saba Swain, MPT Balance/Gait/Functional tests - Balance/Special Test Scores Functional Gait Assessment Score: 23 % Disability: 23.3400 CATSIB Score (Max score 120 seconds): 117 Lower Extremity Functional Score: 61
== END 2022-03-10 19:00 | disposition home or self-care (01) ==
LOC: PT 13:30
PROVIDERS: PCP Family Medicine; Referring Provider Family Medicine; Visit Provider Family Medicine
DX: R53.81 Other malaise (principal)
CPT/HCPCS: 97110; 97161; 97530

== ENCOUNTER → 2023-01-10 | Outpatient (CLI) | payer MEDICARE, OTHER, SELFPAY ==
[2023-01-10 14:40] LABS: Absolute Lymphocyte Count 3.02 X10^3/uL (0.83-4.51); Absolute Neutrophil Count 4.1 X10^3/uL (2.0-7.7); Basophil# 0.08 X10^3/uL; Basophil% 0.9 % (0-1); Eosinophil# 0.14 X10^3/uL; Eosinophils% 1.6 % (0-5); Hematocrit 37.6 % (37-47); Hemoglobin 12.9 g/dL (12.0-15.0); Lymphocyte # 3.02 X10^3/ul (0.83-4.51); Lymphocyte % 34.9 % (19-41); Mean Corp Hgb Conc 34.3 g/dL (32-36); Mean Corpuscular Hgb 33.8 pg (27.0-32.0); Mean Corpuscular Volume 98.4 fL (81-99); Mean Platelet Vol. 10.3 fl (6.2-12.0); NRBC Flagged by Analyzer 0 % (0-5); Neutrophil # 4.08 X10^3/uL (2.7-7.7); Neutrophil % 47.3 % (47-70); POSITIVE MORPHOLOGY YES; Platelet Count 221 K/mm3 (150-450); RBC Distribution Width CV 24.5 % (11.6-14.6); RBC Distribution Width SD 89.5 fl (35.1-43.9); Red Blood Count 3.82 M/mm3 (4.2-5.4); White Blood Count 8.7 K/mm3 (4.4-11.0)
[2023-01-10 14:41] LABS: Differential Indicated SCAN CRITERIA MET
[2023-01-10 14:52] LABS: Hemoglobin A1c 5.7 % (3.8-5.6)
[2023-01-10 15:03] LABS: BNP,B-Type NATRIURETIC PEPTIDE 470.8 pg/mL (0-100)
[2023-01-10 15:06] LABS: Vitamin B12 876 pg/mL (211-911); Vitamin D,25 Hydroxy 61.9 ng/mL
[2023-01-10 15:09] LABS: Anisocytosis 2+
[2023-01-10 15:12] LABS: ALB/GLOB Ratio 1.6 RATIO (0.9-2.4); AST(SGOT) 24 U/L (15-37); Alanine Aminotransfer ALT/SGPT 24 U/L (13-56); Albumin, Serum 3.8 g/dL (3.2-5.0); Alkaline Phosphatase 125 U/L (45-117); Anion Gap 6 (5-15); BUN 10 mg/dL (7-18); BUN/Creat Ratio 16.1 RATIO (10-20); Calcium,Total 9.2 mg/dL (8.5-10.1); Chloride 103 mmol/L (98-107); Creatinine, Serum 0.62 mg/dL (0.55-1.02); EST Glomerular Filtration Rate 97 mL/min (>60); Est Glom Filt Rate - Afr Amer 117 mL/min (>60); Globulin 2.4 g/dL (2.2-4.2); Glucose 125 mg/dL (74-106); Potassium 3.2 mmol/L (3.5-5.1); Protein, Total 6.2 g/dL (6.4-8.2); Sodium Level 137 mmol/L (136-145); Thyroid Stim Hormone (TSH) 4.96 uIU/mL (0.358-3.74)
== END | disposition home or self-care (01) ==
LOC: LAB 14:21
PROVIDERS: PCP Family Medicine; Referring Provider Nurse Practitioner Gerontology; Visit Provider Nurse Practitioner Gerontology
DX: I48.91 Unspecified atrial fibrillation (principal); E55.9 Vitamin D deficiency, unspecified; R73.02 Impaired glucose tolerance (oral); E53.8 Deficiency of other specified B group vitamins; R06.09 Other forms of dyspnea
CPT/HCPCS: 36415; 80053; 82306; 82607; 83036; 83735; 83880; 84443; 85025

== ENCOUNTER → 2023-01-18 | Outpatient (CLI) | payer MEDICARE, OTHER, SELFPAY ==
[2023-01-18 14:31] LABS: Anion Gap 4 (5-15); BUN 9 mg/dL (7-18); BUN/Creat Ratio 12.9 RATIO (10-20); Chloride 107 mmol/L (98-107); EST Glomerular Filtration Rate 85 mL/min (>60); Est Glom Filt Rate - Afr Amer 102 mL/min (>60); Glucose 137 mg/dL (74-106); Potassium 3.8 mmol/L (3.5-5.1); Sodium Level 143 mmol/L (136-145)
== END | disposition home or self-care (01) ==
LOC: LAB 13:17
PROVIDERS: PCP Family Medicine; Referring Provider Nurse Practitioner Gerontology; Visit Provider Nurse Practitioner Gerontology
DX: E87.6 Hypokalemia (principal)
CPT/HCPCS: 36415; 80048

== ENCOUNTER → 2023-01-19 | Outpatient (CLI) | payer MEDICARE, OTHER, SELFPAY ==
[2023-01-19 12:55] LABS: T4 Free Direct 1.26 ng/dL (0.76-1.46)
[2023-01-20 17:07] LABS: Anti-Thyroglobulin AB < 1.0 IU/mL (0.0-0.9); Thyroglobulin, Serum Qt. 20.1 ng/mL (1.5-38.5); Thyroid Peroxidase AB < 9 IU/mL (0-34)
== END | disposition home or self-care (01) ==
PROVIDERS: PCP Family Medicine; Referring Provider Family Medicine; Visit Provider Family Medicine
DX: R79.89 Other specified abnormal findings of blood chemistry (principal); R94.6 Abnormal results of thyroid function studies
CPT/HCPCS: 36415; 84432; 84439; 86376; 86800

== ENCOUNTER → 2023-04-20 | Outpatient (CLI) | payer MEDICARE, OTHER, SELFPAY ==
[2023-04-20 17:44] LABS: Absolute Lymphocyte Count 2.92 X10^3/uL (0.83-4.51); Basophil# 0.09 X10^3/uL; Basophil% 1.2 % (0-1); Differential Indicated SCAN CRITERIA MET; Eosinophil# 0.12 X10^3/uL; Eosinophils% 1.6 % (0-5); Hematocrit 38.8 % (37-47); Hemoglobin 12.8 g/dL (12.0-15.0); Lymphocyte # 2.92 X10^3/ul (0.83-4.51); Lymphocyte % 38.8 % (19-41); Mean Corpuscular Hgb 32.5 pg (27.0-32.0); Mean Corpuscular Volume 98.5 fL (81-99); Mean Platelet Vol. 11.3 fl (6.2-12.0); Monocyte# 1.33 X10^3/uL; Monocyte% 17.7 % (0-10); NRBC Flagged by Analyzer 0 % (0-5); Neutrophil # 3.04 X10^3/uL (2.7-7.7); Neutrophil % 40.4 % (47-70); POSITIVE MORPHOLOGY YES; Platelet Count 202 K/mm3 (150-450); RBC Distribution Width CV 27.2 % (11.6-14.6); Red Blood Count 3.94 M/mm3 (4.2-5.4); White Blood Count 7.5 K/mm3 (4.4-11.0)
[2023-04-20 17:59] LABS: Poikilocytosis 1+; Target Cells 2+
[2023-04-20 18:08] LABS: ALB/GLOB Ratio 1.5 RATIO (0.9-2.4); AST(SGOT) 23 U/L (15-37); Alanine Aminotransfer ALT/SGPT 23 U/L (13-56); Albumin, Serum 3.7 g/dL (3.2-5.0); Alkaline Phosphatase 137 U/L (45-117); Anion Gap 6 (5-15); BUN 10 mg/dL (7-18); BUN/Creat Ratio 16.9 RATIO (10-20); Calcium,Total 8.6 mg/dL (8.5-10.1); Chloride 107 mmol/L (98-107); Creatinine, Serum 0.59 mg/dL (0.55-1.02); EST Glomerular Filtration Rate 103 mL/min (>60); Est Glom Filt Rate - Afr Amer 124 mL/min (>60); Globulin 2.4 g/dL (2.2-4.2); Glucose 101 mg/dL (74-106); Magnesium 2.3 mg/dL (1.6-2.6); Potassium 3.6 mmol/L (3.5-5.1); Protein, Total 6.1 g/dL (6.4-8.2); Sodium Level 142 mmol/L (136-145); T4 Free Direct 1.14 ng/dL (0.76-1.46); Thyroid Stim Hormone (TSH) 5.36 uIU/mL (0.358-3.74)
[2023-04-20 18:28] LABS: Hemoglobin A1c 5.5 % (3.8-5.6)
== END | disposition home or self-care (01) ==
LOC: MFPLAB 14:59
PROVIDERS: PCP Family Medicine; Visit Provider Family Medicine
DX: I48.91 Unspecified atrial fibrillation (principal); E03.8 Other specified hypothyroidism; R73.02 Impaired glucose tolerance (oral)
CPT/HCPCS: 36415; 80053; 83036; 83735; 84439; 84443; 85025

== ENCOUNTER 2023-04-26 08:18 | Outpatient (CLI) | payer MEDICARE, OTHER, SELFPAY ==
[2023-04-26 10:53] LABS: AST(SGOT) 22 U/L (15-37); Alanine Aminotransfer ALT/SGPT 22 U/L (13-56); Albumin, Serum 3.4 g/dL (3.2-5.0); Alkaline Phosphatase 124 U/L (45-117); Bilirubin, Direct 0.77 mg/dL (0.00-0.30); Cholesterol 80 mg/dL (200); Globulin 2.3 g/dL (2.2-4.2); High Density Lipoprotein 45 mg/dL; Protein, Total 5.7 g/dL (6.4-8.2); Triglycerides 41 mg/dL; Very Low Density Lipoprotein 8 mg/dL (5-40)
== END 2023-04-26 23:59 | disposition home or self-care (01) ==
PROVIDERS: PCP Family Medicine; Referring Provider Family Medicine; Visit Provider Family Medicine
DX: E80.6 Other disorders of bilirubin metabolism (principal); I10 Essential (primary) hypertension
CPT/HCPCS: 36415; 80061; 80076

== ENCOUNTER → 2023-05-05 | Outpatient (CLI) | payer MEDICARE, OTHER, SELFPAY ==
--- NOTE | 2023-05-05 14:29 | CT_ITS ---
STUDY: CT ABDOMEN AND PELVIS WITH CONTRAST REASON FOR EXAM: Female, 87 years old. Elevated bilirubin RADIATION DOSAGE (If Supplied By Facility): CTDIvol = ( 20.97 ) mGy, DLP = ( 926.20 ) mGycm TECHNIQUE: Transaxial images were obtained from the dome of the diaphragm to the symphysis pubis with oral contrast. Oral and amp; IV Readi-CAT and amp; 100mL Isovue-300 was administered. Sagittal and coronal images were reconstructed. Individualized dose optimization techniques were used for this CT. COMPARISON: None. FINDINGS: Small bilateral pleural effusions with bibasilar atelectasis likely prominent on the right side. Small pericardial effusion. Coronary artery calcification. There is enlargement of the right ventricle. There is decreased attenuation of the liver consistent with steatosis. There is a 1.7 cm long 0.7 cm rounded density in the anterior inferior aspect of the right lobe of the liver with a feeding and draining vessel along the anterior aspect suggestive of a venous malformation arising from the hepatic veins. There are surgical clips in the gallbladder fossa consistent with a prior cholecystectomy. Normal spleen. Normal pancreas. Normal bilateral adrenal glands. Normal right kidney. Normal left kidney. Normal visualized stomach. Normal small intestine. Large amount of fecal material is seen in the colon. The appendix is visualized and appears normal. There is diffuse atherosclerotic calcification of the abdominal aorta and its major visceral branches, without a demonstrated aneurysm. Normal inferior vena cava. Normal retroperitoneum. Normal urinary bladder. Increased markings in the subcutaneous fat overlying the lower anterior abdominal wall with some mild skin thickening. There are diffuse degenerative changes of the visualized lumbar spine. CT/Abdomen/Pelvis WITH Contrast IMPRESSION: Diffuse fatty inflation of the liver. 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 Small bilateral pleural effusions with bibasilar atelectasis worse on the right side. Enlargement of the right ventricle and small pericardial effusion. Electronically Signed: Kevin Law MD at 15:28 EST ,
== END | disposition home or self-care (01) ==
PROVIDERS: PCP Family Medicine; Referring Provider Family Medicine; Visit Provider Family Medicine
DX: R17 Unspecified jaundice (principal)
CPT/HCPCS: 74177; Q9967

== ENCOUNTER → 2023-07-13 | Outpatient (CLI) | payer MEDICARE, OTHER, SELFPAY ==
[2023-07-13 15:12] LABS: Anion Gap 4 (5-15); BUN 10 mg/dL (7-18); BUN/Creat Ratio 18.3 RATIO (10-20); Calcium,Total 8.9 mg/dL (8.5-10.1); Chloride 109 mmol/L (98-107); Creatinine, Serum 0.55 mg/dL (0.55-1.02); EST Glomerular Filtration Rate 112 mL/min (>60); Est Glom Filt Rate - Afr Amer 136 mL/min (>60); Glucose 149 mg/dL (74-106); Potassium 3.7 mmol/L (3.5-5.1); Sodium Level 142 mmol/L (136-145)
[2023-07-13 15:15] LABS: BNP,B-Type NATRIURETIC PEPTIDE 498.6 pg/mL (0-100)
== END | disposition home or self-care (01) ==
PROVIDERS: PCP Family Medicine; Visit Provider Nurse Practitioner Gerontology
DX: R06.09 Other forms of dyspnea (principal)
CPT/HCPCS: 36415; 80048; 83880

== ENCOUNTER → 2023-07-19 | Outpatient (CLI) | payer MEDICARE, OTHER, SELFPAY ==
--- NOTE | 2023-07-19 10:47 | ECHOD_ITS ---
Reason For Study: SOB Procedure This was a 2D Doppler, Color Flow transthoracic echocardiogram. Exam performed in department. Left Ventricle Normal LV size. The left ventricular ejection fraction is 55 %. No regional wall motion abnormalities noted. Right Ventricle Moderately dilated right ventricle. Mild to moderate global right ventricular systolic dysfunction. Atria The left atrium is moderately enlarged. The right atrium is severely enlarged. Mitral Valve Normal mitral valve. Mild (1+) eccentric mitral valve insufficiency. Tricuspid Valve Normal tricuspid valve. Moderately severe (3+) tricuspid valve insufficiency. Pulmonary artery systolic pressure is 60 mmHg. Moderate pulmonary hypertension. Aortic Valve Trisinus/trileaflet aortic valve. Normal aortic valve. Pulmonic Valve Normal pulmonic valve. Great Vessels Normal aortic root. The pulmonary artery is normal size. No collapse of the inferior vena cava. The inferior vena cava is dilated. Pericardium/Pleural Small pericardial effusion. There are no echocardiographic indications of cardiac tamponade. MMode/2D Measurements & Calculations LVIDd: 4.7 cm IVSd: 0.86 cm Ao root diam: 3.4 cm LVIDs: 3.1 cm LVPWd: 0.92 cm RVDd: 3.3 cm FS: 33.6 % LAV(MOD-bp): 120.8 ml LVAd ap4: 18.8 cm2 LVAd ap2: 22.0 cm2 LAV(MOD-bp) Indexed: 62.1 ml/m2 LVLd ap4: 6.0 cm LVLd ap2: 6.8 cm LAV(MOD-sp2): 124.5 ml EDV(MOD-sp4): 50.0 ml EDV(MOD-sp2): 61.3 ml LAV(MOD-sp4): 107.2 ml EDV(sp4-el): 50.3 ml EDV(sp2-el): 61.0 ml LVAs ap4: 11.2 cm2 LVAs ap2: 13.2 cm2 LVLs ap4: 4.8 cm LVLs ap2: 5.6 cm ESV(MOD-sp4): 22.7 ml ESV(MOD-sp2): 25.8 ml ESV(sp4-el): 22.2 ml ESV(sp2-el): 26.7 ml EF(MOD-sp4): 54.6 % EF(MOD-sp2): 58.0 % EF(sp4-el): 55.9 % SV(MOD-sp4): 27.3 ml SV(MOD-sp2): 35.6 ml SV(sp4-el): 28.1 ml LA dimension(2D): 5.1 cm LA A4 area: 31.3 cm2 RA A4 area: 37.6 cm2 TAPSE: 1.4 cm Doppler Measurements & Calculations MV E max satish: 131.3 cm/sec Lat Peak E' Satish: 8.2 cm/sec Med Peak E' Satish: 8.6 cm/sec E/E' lat: 15.9 E/E' med: 15.2 MV V2 max: 163.0 cm/sec Ao V2 max: 108.2 cm/sec LV V1 max: 75.4 cm/sec MV max P.6 mmHg Ao max P.7 mmHg LV V1 max P.3 mmHg MV V2 mean: 65.4 cm/sec Ao V2 mean: 80.0 cm/sec LV V1 mean P.4 mmHg MV mean P.4 mmHg Ao mean P.8 mmHg LV V1 mean: 56.5 cm/sec MV V2 VTI: 28.3 cm Ao V2 VTI: 25.4 cm LV V1 VTI: 14.5 cm AV (velocity ratio): 0.57 PA V2 max: 69.2 cm/sec TR max satish: 364.0 cm/sec PA V2 mean: 54.8 cm/sec TR max P.0 mmHg ECHO/Echo Complete Interpretation Summary Normal LV size. The left ventricular ejection fraction is 55 %. Moderately dilated right ventricle. Mild to moderate global right ventricular systolic dysfunction. The right atrium is severely enlarged. Pulmonary artery systolic pressure is 60 mmHg. Moderate pulmonary hypertension. Compared to the previous echocardiogram the right ventricular function is worse , with worse pulmonary hypertension. Ordering Physician: Blue Lambert Referring Physician: Blue Lambert Performed By: Cecilia Dorantes, RAMANDEEP, RVT
== END | disposition home or self-care (01) ==
PROVIDERS: PCP Family Medicine; Referring Provider Family Medicine; Visit Provider Family Medicine
DX: R06.02 Shortness of breath (principal)
CPT/HCPCS: 93306

== ENCOUNTER → 2023-07-20 | Outpatient (CLI) | payer MEDICARE, OTHER, SELFPAY ==
[2023-07-20 11:46] LABS: Anion Gap 3 (5-15); BUN 10 mg/dL (7-18); BUN/Creat Ratio 15.5 RATIO (10-20); Calcium,Total 9.3 mg/dL (8.5-10.1); Chloride 107 mmol/L (98-107); Creatinine, Serum 0.65 mg/dL (0.55-1.02); EST Glomerular Filtration Rate 93 mL/min (>60); Est Glom Filt Rate - Afr Amer 112 mL/min (>60); Glucose 112 mg/dL (74-106); Potassium 3.6 mmol/L (3.5-5.1); Sodium Level 142 mmol/L (136-145)
== END | disposition home or self-care (01) ==
LOC: LAB 10:03
PROVIDERS: PCP Family Medicine; Referring Provider Nurse Practitioner Gerontology; Visit Provider Nurse Practitioner Gerontology
DX: E87.6 Hypokalemia (principal); R06.09 Other forms of dyspnea; Z51.81 Encounter for therapeutic drug level monitoring; Z79.899 Other long term (current) drug therapy
CPT/HCPCS: 36415; 80048

== ENCOUNTER → 2023-08-17 | Outpatient (CLI) | payer MEDICARE, OTHER, SELFPAY ==
--- NOTE | 2023-08-17 13:30 | BD_ITS ---
STUDY: DUAL ENERGY X-RAY ABSORPTIOMETRY / DXA REASON FOR EXAM: Female, 88 years old. 733.90OsteopeniaBONE DENSITY REASON FOR EXAM TECHNIQUE: Bone Mineral Density (BMD) measurements of lumbar spine and bilateral hips were obtained. COMPARISON: Comparison is made with prior study August 04, 2021. FINDINGS: Lumbar Spine (L1-L4): g/cm2 (1.230) / T-score (1.7) / Z-score (4.5) Findings are suggestive of normal bone density with a low fracture risk. Left Femur Total: g/cm2 (0.884) / T-score (-0.5) / Z-score (1.9) Left Femoral Neck: g/cm2 (0.721) / T-score (-1.2) / Z-score (1.4) Right Femur Total: g/cm2 (0.787) / T-score (-1.3) / Z-score (1.1) Right Femoral Neck: g/cm2 (0.662) / T-score (-1.7) / Z-score (0.8) The T-Scores on the most recent prior examination were: Lumbar Spine (L1-L4): There has been improvement of bone density since the previous examination. Left Femur Total: which represents an improvement of 2%. Right Femur Total: which represents a worsening of 9.5%. BD/Dexa Bone Density Study IMPRESSION: The patient is considered osteopenic as outlined below according to World [place] Organization (WHO) criteria with a moderate fracture risk. There has been improvement of bone density since the previous examination. Reference Information: The T-score is the number of standard deviations above or below the standard which is normal for young adults at their peak bone mineral density. The World Health Organization (WHO) interprets the T-scores as follows: Above -1 Normal bone density Between -1 and -2.5 Osteopenia Equal to / or below -2.5 Osteoporosis As a practical clinical guideline, osteopenia may be graded as follows: Mild -1 through -1.5 Moderate -1.6 through -2.0 Severe -2.1 through -2.4 The Z-score is the number of standard deviations above or below age-matched controls. A Z-score of less than -1.5 would be considered abnormal. References: 1. NIH Osteoporosis and Related Bone Diseases www osteo.org 2. International Society for Clinical Densitometry www iscd.org 3. National Osteoporosis Foundation www nof.org Electronically Signed: Kevin Law MD at 12:51 EDT ,
== END | disposition home or self-care (01) ==
LOC: OPBD 13:26
PROVIDERS: PCP Family Medicine; Referring Provider Family Medicine; Visit Provider Family Medicine
DX: M85.89 Other specified disorders of bone density and structure, multiple sites (principal)
CPT/HCPCS: 77080

== ENCOUNTER → 2023-11-17 | Outpatient (CLI) | payer MEDICARE, OTHER, SELFPAY ==
[2023-11-17 15:23] LABS: Absolute Lymphocyte Count 3.16 X10^3/uL (0.83-4.51); Absolute Neutrophil Count 2.7 X10^3/uL (2.0-7.7); Basophil# 0.08 X10^3/uL; Basophil% 1.1 % (0-1); Eosinophil# 0.17 X10^3/uL; Eosinophils% 2.3 % (0-5); Hematocrit 30.7 % (37-47); Hemoglobin 9.7 g/dL (12.0-15.0); Lymphocyte # 3.16 X10^3/ul (0.83-4.51); Mean Corp Hgb Conc 31.6 g/dL (32-36); Mean Corpuscular Hgb 29.6 pg (27.0-32.0); Mean Corpuscular Volume 93.6 fL (81-99); Mean Platelet Vol. 10.9 fl (6.2-12.0); Monocyte% 18.6 % (0-10); NRBC Flagged by Analyzer 0 % (0-5); Neutrophil % 35.9 % (47-70); POSITIVE MORPHOLOGY YES; Platelet Count 270 K/mm3 (150-450); RBC Distribution Width CV 23.9 % (11.6-14.6); RBC Distribution Width SD 82.6 fl (35.1-43.9); Red Blood Count 3.28 M/mm3 (4.2-5.4); White Blood Count 7.5 K/mm3 (4.4-11.0)
[2023-11-17 15:38] LABS: Differential Indicated SCAN CRITERIA MET
[2023-11-17 15:47] LABS: Hemoglobin A1c 5.6 % (3.8-5.6)
[2023-11-17 15:51] LABS: Vitamin B12 1039 pg/mL (211-911); Vitamin D,25 Hydroxy 51.6 ng/mL
[2023-11-17 16:04] LABS: ALB/GLOB Ratio 1.3 RATIO (0.9-2.4); AST(SGOT) 21 U/L (15-37); Alanine Aminotransfer ALT/SGPT 17 U/L (13-56); Albumin, Serum 3.6 g/dL (3.2-5.0); Alkaline Phosphatase 136 U/L (45-117); Anion Gap 5 (5-15); BUN 13 mg/dL (7-18); BUN/Creat Ratio 18.4 RATIO (10-20); Calcium,Total 9.1 mg/dL (8.5-10.1); Chloride 105 mmol/L (98-107); EST Glomerular Filtration Rate 84 mL/min (>60); Est Glom Filt Rate - Afr Amer 101 mL/min (>60); Globulin 2.8 g/dL (2.2-4.2); Glucose 107 mg/dL (74-106); Magnesium 2.2 mg/dL (1.6-2.6); Potassium 3.7 mmol/L (3.5-5.1); Protein, Total 6.4 g/dL (6.4-8.2); Sodium Level 136 mmol/L (136-145); T4 Free Direct 1.12 ng/dL (0.76-1.46); Thyroid Stim Hormone (TSH) 3.83 uIU/mL (0.358-3.74)
[2023-11-17 16:30] LABS: Acanthocytes 1+; Anisocytosis 2+; Differential Comment SCANNED; Hypochromasia 1+; Macrocytosis 1+; Microcytosis 1+
[2023-11-18 10:25] LABS: Ferritin 30 ng/mL (8-252); Iron 51 ug/dL (50-170); Iron Binding Capacity,Total 379 ug/dL (250-450); PERCENT IRON SATURATION 13.5 % (15.0-55.0)
== END | disposition home or self-care (01) ==
LOC: MFPLAB 13:45
PROVIDERS: PCP Family Medicine; Visit Provider Family Medicine
DX: D64.9 Anemia, unspecified (principal); I48.91 Unspecified atrial fibrillation; E53.8 Deficiency of other specified B group vitamins; E03.8 Other specified hypothyroidism; R73.02 Impaired glucose tolerance (oral); E55.9 Vitamin D deficiency, unspecified
CPT/HCPCS: 36415; 80053; 82306; 82607; 82728; 82746; 83036; 83540; 83550; 83735; 84439; 84443; 85025

== ENCOUNTER 2024-02-27 19:47 | Inpatient (IN) | payer MEDICARE, OTHER, SELFPAY ==
[2024-02-27 19:48] VITALS: BP 143/79; PULSE 112; RESP 20; TEMP 36.7; O2SAT 96; BMI 30.2
--- NOTE | 2024-02-27 20:45 | EKG12_ITS ---
Test Reason : DYSRHYTHMIA Blood Pressure : / mmHG Vent. Rate : 090 BPM Atrial Rate : 000 BPM P-R Int : 000 ms QRS Dur : 086 ms QT Int : 366 ms P-R-T Axes : 000 100 046 degrees QTc Int : 447 ms Atrial fibrillation with premature ventricular or aberrantly conducted complexes Rightward axis Nonspecific ST and T wave abnormality Abnormal ECG Confirmed by NAHID CAIN, MAURO ([id number]), loan expeditor LEONELA ELMORE ([id number]) on 02/28/2024 9:45:01 AM Referred By: NAILA Confirmed By:MAURO WHITFIELD MD
[2024-02-27 20:48] VITALS: BP 140/63; PULSE 93; RESP 18; O2SAT 97
--- NOTE | 2024-02-27 21:18 | CT_ITS ---
EXAM: CT Abdomen And Pelvis W/ Contrast Injection HISTORY: Jaundice, abdominal bloating TECHNIQUE: Routine protocol CT abdomen pelvis. IV Contrast: IV 100mL Isovue-370 . Oral Contrast: without. Sagittal and coronal images were reconstructed. RADIATION DOSAGE (If Supplied By Facility): CTDIvol = ( 19.66 ) mGy, DLP = ( 2030.51 ) mGycm Individualized dose optimization techniques were used for this CT. COMPARISON: CT abdomen and pelvis 05/05/2023. LIMITATIONS: None. FINDINGS: LOWER CHEST: Moderate right pleural effusion with partial compressive atelectasis right lower lobe, not significantly changed. Smaller left pleural effusion is decreased compared to the prior. Cardiomegaly. Coronary artery calcifications are noted. LIVER: Mildly enlarged. Heterogeneous with fatty infiltration. There is an enhancing nodular structure in the right lobe inferiorly, 2.1 x 2.0 cm, with a feeding vessel from portal vein branch, and draining vein into a hepatic vein, likely vascular malformation with portosystemic shunt, overall not significantly changed compared to the prior study. GALLBLADDER/BILE DUCTS: Gallbladder is surgically absent. No significant biliary dilatation. PANCREAS: Unremarkable. SPLEEN: Unremarkable. ADRENAL GLANDS: Unremarkable. KIDNEYS / URETERS: Unremarkable. 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 BOWEL / MESENTERY: No bowel obstruction. Mild haziness in the mesentery. APPENDIX: Identified and normal. No evidence of acute appendicitis. PERITONEUM: No free air. Small amount of free fluid in the abdomen and pelvis. VESSELS: Abdominal aorta is normal caliber. RETROPERITONEUM: Unremarkable. REPRODUCTIVE ORGANS: Unremarkable. BLADDER: Unremarkable. ABDOMINAL WALL: Subcutaneous edema throughout the body wall. BONES: No acute abnormality. Degenerative changes lumbar spine OTHER: None. CT/Abdomen/Pelvis W IV Cont ONLY IMPRESSION: Hepatomegaly with steatosis. 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 Cholecystectomy. No biliary dilatation. Small amount of ascites. Anasarca. Bilateral pleural effusions larger on the right with partial compressive right lower lobe atelectasis. Electronically Signed: Arabella Persaud MD at 22:59 EDT ,
--- NOTE | 2024-02-27 21:24 | EX.ED.DYSGE1 ---
HPI History of Present Illness Chief Complaint: Abn Labs Narrative Narrative: Chief complaint and HPI: Anemia. 88-year-old female with history of atrial fibrillation on Eliquis, HTN presents for evaluation of anemia and multiple complaints. Patient states for the past couple months she has had bilateral lower extremity swelling. She states for the past month she has been having increased shortness of breath. Shortness of breath is worse with exertion. She endorses orthopnea. Daughter states in the last week she has noticed that the patient's skin appears more yellow. She also feels that her entire body is swelling especially her abdomen. Patient saw her PCP today and had blood work obtained. She was told to come to the emergency department once they resulted. On chart review, patient had a hemoglobin of 6.8. Her total bilirubin was 3.7. Patient has had elevated bilirubin in the past on chart review. Patient denies any fever, chills, chest pain, abdominal pain, nausea, vomiting, dysuria. She states she has been eating and drinking well. She denies any constipation or diarrhea. Denies any bloody bowel movements. She has not missed any of her doses of Eliquis. Patient was started on antibiotics today for cellulitis of the bilateral lower extremities along with the swelling. Review of systems: See HPI Medications: As listed on the chart Allergies: As listed on the chart PFSH: Per chart Vital signs: As listed on the chart. Reviewed. Physical exam: Gen: A&O x3, NAD Head: Normocephalic, atraumatic Eyes: Mild sclera icterus, conjunctiva clear ENT: Moist mucous membranes Neck: Trachea midline CV: Irregular rhythm, no murmurs, + 3 pitting peripheral edema with mild erythema/early cellulitis Resp: Lungs diminished bilaterally especially in the bases, no wheezing GI: Abd soft, distended/anasarca, non-tender, no r/r/g Rectal: Normal external examination. Normal tone and sensation. No masses, fluctuance, or tenderness. No pain out of proportion Musc: Full ROM, no deformity Skin: Warm, dry, mild jaundice Neuro: Alert, oriented, grossly intact, sensation intact Psych: Cooperative, appropriate mood and affect [facility] Medical History (Updated 02/28/24 @ 00:[address] Charlie Andrade MD) Acquired atrial septal defect (ASD) Multiple thyroid nodules Osteopenia Normocytic anemia Pericardial effusion Non-rheumatic tricuspid valve insufficiency Non-rheumatic mitral regurgitation Pseudophakia Essential hypertension Atrial fibrillation Bee sting reaction Bronchitis Fatigue Cystic thyroid nodule Hemorrhoid Murmur, heart Home Medications ?Medication ?Instructions ?Recorded ?Last Taken ?Type apixaban 5 mg tablet (Eliquis) 5 mg PO BID 11/13/20 12/09/20 History calcium 500 mg-vitamin D3 500 1 tab PO DAILY 11/13/20 Unknown History unit-vitamin K 40 mcg chewable tablet (Viactiv) metoprolol succinate 100 mg 100 mg PO DAILY 11/27/20 12/09/20 History tablet,extended release 24 hr vitamins A,C,Y-jarb-xdtfdh 4,296 1 cap PO DAILY 07/06/22 Unknown History mcg-226 mg-90 mg capsule (PreserVision AREDS) spironolactone 25 mg tablet 25 mg PO DAILY #90 tabs 08/01/23 Unknown Rx furosemide 40 mg tablet (Lasix) 40 mg PO DAILY #90 tabs 12/09/23 Unknown Rx cholecalciferol (vitamin D3) 125 125 mcg PO Q OTHER DAY 12/23/23 Unknown History mcg (5,000 unit) tablet cyanocobalamin (vitamin B-12) 1,000 mcg PO Q OTHER DAY 12/23/23 Unknown History 1,000 mcg tablet doxycycline hyclate 100 mg capsule 100 mg PO BID 02/27/24 Unknown History Allergy/AdvReac Type Severity Reaction Status Date / Time amoxicillin (From Trimox) Allergy Severe throat Verified 02/27/24 19:48 swelling lisinopril Allergy Severe Angioedema Verified 02/27/24 19:48 amlodipine AdvReac Mild swelling Verified 02/27/24 19:48 ciprofloxacin (From Cipro) AdvReac GI upset Verified 02/27/24 19:48 diphenhydramine (From AdvReac jittery Verified 02/27/24 19:48 Benadryl) Family History Mother Diabetes Father Myocardial infarction CAD (coronary artery disease) Surgical History History of cholecystectomy History of tubal ligation History of tonsillectomy S/P colonoscopy Social History Smoking Status: Never smoker alcohol intake: current details: glass wine daily substance use type: does not use caffeine: Yes Type: coffee Number of servings: 1 EXAM Physical Exam Const Vital Signs: 02/27/24 19:48 02/27/24 20:48 02/27/24 21:41 Temperature 98.1 F Temperature Source Oral Pulse Rate 112 H 93 Respiratory Rate 20 H 18 Respiratory Effort Normal Short of Breath Respiratory Pattern Normal Blood Pressure 143/79 H 140/63 H Blood Pressure Mean 100 88 Pulse Ox 96 97 Oxygen Delivery Method Room Air Room Air 02/27/24 22:00 02/27/24 22:53 02/27/24 23:00 Temperature 98.4 F Temperature Source Oral Pulse Rate 99 93 95 Respiratory Rate 19 H 20 H 15 Respiratory Effort Respiratory Pattern Blood Pressure 139/54 H 148/78 H 141/71 H Blood Pressure Mean 82 101 94 Pulse Ox 100 98 99 Oxygen Delivery Method Room Air Room Air Room Air 02/27/24 23:08 Temperature 98.2 F Temperature Source Oral Pulse Rate 88 Respiratory Rate 17 Respiratory Effort Respiratory Pattern Blood Pressure 141/71 H Blood Pressure Mean 94 Pulse Ox 100 Oxygen Delivery Method Room Air MDM MDM MDM Narrative Medical decision making narrative: 88-year-old female with history of atrial fibrillation on Eliquis, HTN presents for evaluation of anemia and bilateral lower extremity/anasarca. See physical exam findings. Differential diagnosis includes but is not limited to CHF, cirrhosis, pancreatic cancer, electrolyte abnormality, arrhythmia, GI bleed. Cardiac/abdominal workup ordered. EKG and chest x-ray reviewed. Chest x-ray shows bilateral effusions right greater than left. CBC without leukocytosis. Patient has anemia with a hemoglobin of 6.8. No thrombocytopenia. 1 unit packed RBCs ordered. INR is elevated at 2.6. Patient is not on warfarin. She is on Eliquis. CMP without SHRAVAN. Patient does have elevated bilirubin at 3.5 however this appears to be about her baseline. Her direct bilirubin is mildly elevated at 0.82. It was 0.77 on 04/26/2023. No transaminitis. Mild elevation in alk phos at 129. Troponin unremarkable. BNP elevated at 659. Lipase unremarkable. Occult blood is positive. Patient's acute blood loss anemia is likely secondary to GI bleed versus elevation in INR. CT abdomen pelvis shows hepatomegaly with steatosis. 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 Small amount of ascites. Anasarca. Bilateral pleural effusions. Lasix ordered. Patient will require admission for further GI workup. Patient will also require continued diuresis. Patient updated of all results and confirmed understand the plan. Patient excepted to the hospitalist service by Dr. Andrade. EKG: Interpreted by me/EM physician: Atrial fibrillation with PVCs. Nonspecific ST changes. Heart rate 90. No acute ischemic changes. Diagnostic: Interpreted by me/EM physician: Chest x-ray with bilateral effusions, right greater than left. No pneumothorax. Impression: 1. Acute blood loss anemia secondary to GI bleed 2. CHF exacerbation 3. Elevated INR 4. Hyperbilirubinemia 5. Bilateral lower extremity cellulitis 6. Bilateral pulmonary effusions Lab Data Labs: Laboratory Results - last 24 hr 02/27/24 02/27/24 02/27/24 20:38 22:35 23:30 WBC 7.8 RBC 2.94 L Hgb 6.8 L Hct 22.0 L MCV 74.8 L MCH 23.1 L MCHC 30.9 L RDW Std Deviation 52.8 H RDW Coeff of Simona 19.8 H Plt Count 313 MPV 9.9 Immature Gran % (Auto) 0.400 Neut % (Auto) 40.2 L Lymph % (Auto) 31.0 [place] % (Auto) 25.5 H Eos % (Auto) 1.7 Baso % (Auto) 1.2 H Absolute Neuts (auto) 3.1 Absolute Lymphs (auto) 2.42 Nucleated RBC % 0 Differential Comment SCANNED Diff Path Review May foll Reactive Lymphocytes 1+ Toxic Granulation 1+ Polychromasia RARE Hypochromasia 2+ Sickle Cells RARE Target Cells 2+ Ovalocytes 1+ Schistocytes RARE PT 27.3 H INR 2.6 APTT 40.6 H Sodium 133 L Potassium 3.8 Chloride 100 Carbon Dioxide 24.0 Anion Gap 9 BUN 12 Creatinine 0.76 Estim Creat Clear Calc 59.24 Est GFR (MDRD) Af Amer 93 Est GFR (MDRD) Non-Af 77 BUN/Creatinine Ratio 15.8 Glucose 145 H Lactic Acid 1.9 Calcium 8.8 Total Bilirubin 3.50 H Direct Bilirubin 0.82 H AST 17 ALT 14 Alkaline Phosphatase 129 H Troponin I High Sens 12 14 B-Natriuretic Peptide 659.5 H Total Protein 5.6 L Albumin 3.2 Globulin 2.4 Lipase 42 Blood Type O POSITIVE Antibody Screen NEGATIVE Crossmatch See Detail Radiography Diagnostic Testing: Clinical Impression(s) from Imaging Studies Abdomen/Pelvis CT 02/27/24 21:18 IMPRESSION: Hepatomegaly with steatosis. 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 Cholecystectomy. No biliary dilatation. Small amount of ascites. Anasarca. Bilateral pleural effusions larger on the right with partial compressive right lower lobe atelectasis. Electronically Signed: Arabella Persaud MD at 22:59 EDT Reading Location ID and State: [id number] / [employer] Tel , Service support , Chest X-Ray 02/27/24 21:50 IMPRESSION: Bilateral pleural effusions greater on the right with associated right basilar consolidation/pneumonia or atelectasis. Electronically Signed: Arabella Persaud MD at 22:14 EDT , Discharge Plan Disposition Disposition: Acute Care Hospital [facility] Discharge Date/Time: 02/28/24 00:31
[2024-02-27 21:32] LABS: Absolute Lymphocyte Count 2.42 X10^3/uL (0.83-4.51); Absolute Neutrophil Count 3.1 X10^3/uL (2.0-7.7); Basophil# 0.09 X10^3/uL; Basophil% 1.2 % (0-1); Eosinophil# 0.13 X10^3/uL; Eosinophils% 1.7 % (0-5); Hemoglobin 6.8 g/dL (12.0-15.0); Lymphocyte # 2.42 X10^3/ul (0.83-4.51); Mean Corp Hgb Conc 30.9 g/dL (32-36); Mean Corpuscular Hgb 23.1 pg (27.0-32.0); Mean Corpuscular Volume 74.8 fL (81-99); Mean Platelet Vol. 9.9 fl (6.2-12.0); Monocyte# 1.99 X10^3/uL; Monocyte% 25.5 % (0-10); NRBC Flagged by Analyzer 0 % (0-5); Neutrophil # 3.14 X10^3/uL (2.7-7.7); Neutrophil % 40.2 % (47-70); POSITIVE DIFFERENTIAL YES; Platelet Count 313 K/mm3 (150-450); RBC Distribution Width CV 19.8 % (11.6-14.6); RBC Distribution Width SD 52.8 fl (35.1-43.9); Red Blood Count 2.94 M/mm3 (4.2-5.4); White Blood Count 7.8 K/mm3 (4.4-11.0)
[2024-02-27 21:36] LABS: Differential Indicated SCAN CRITERIA MET
[2024-02-27 21:50] LABS: International Normalized Ratio 2.6; Partial Thromboplast Time 40.6 Seconds (24.1-36.2); Prothrombin Time (Protime)PT. 27.3 SECONDS (11.7-14.9)
--- NOTE | 2024-02-27 21:50 | RAD_ITS ---
INDICATION: shortness of breath EXAMINATION/TECHNIQUE: X-RAY - XR Chest 2 Views COMPARISON: Prior study dated: 12/05/2020 FINDINGS: LINES/DEVICES: None. LUNGS: Moderate right pleural effusion with consolidation or atelectasis in the right lung base. Small left pleural effusion. No pneumothorax. MEDIASTINUM: Unremarkable. CARDIAC SILHOUETTE: Enlarged. BONES AND SOFT TISSUES: No acute abnormalities. RAD/Chest PA and Lateral IMPRESSION: Bilateral pleural effusions greater on the right with associated right basilar consolidation/pneumonia or atelectasis. Electronically Signed: Arabella Persaud MD at 22:14 EDT ,
[2024-02-27 21:52] LABS: AST(SGOT) 17 U/L (15-37); Alanine Aminotransfer ALT/SGPT 14 U/L (13-56); Albumin, Serum 3.2 g/dL (3.2-5.0); Alkaline Phosphatase 129 U/L (45-117); Anion Gap 9 (5-15); BUN 12 mg/dL (7-18); BUN/Creat Ratio 15.8 RATIO (10-20); Bilirubin, Direct 0.82 mg/dL (0.00-0.30); Calcium,Total 8.8 mg/dL (8.5-10.1); Chloride 100 mmol/L (98-107); Creatinine, Serum 0.76 mg/dL (0.55-1.02); EST Glomerular Filtration Rate 77 mL/min (>60); Est Glom Filt Rate - Afr Amer 93 mL/min (>60); Estimated Creatinine Clearance 59.24 ml/min; Globulin 2.4 g/dL (2.2-4.2); Glucose 145 mg/dL (74-106); Lipase 42 U/L (13-75); Potassium 3.8 mmol/L (3.5-5.1); Protein, Total 5.6 g/dL (6.4-8.2); Sodium Level 133 mmol/L (136-145); Troponin-I HS (w/2H Reflex) 12 pg/mL (3.0-54.0)
[2024-02-27 21:54] LABS: Differential Comment SCANNED
[2024-02-27 21:55] LABS: Hypochromasia 2+
[2024-02-27 21:56] LABS: Schistocytes RARE
[2024-02-27 21:57] LABS: Ovalocyte 1+; Sickle RARE; Target Cells 2+
[2024-02-27 21:58] LABS: Polychromasia RARE
[2024-02-27 22:00] VITALS: BP 139/54; PULSE 99; RESP 19; O2SAT 100
[2024-02-27 22:01] LABS: BNP,B-Type NATRIURETIC PEPTIDE 659.5 pg/mL (0-100)
[2024-02-27 22:02] LABS: Reactive Lymphocyte 1+
[2024-02-27 22:04] LABS: Toxic Granulation 1+
[2024-02-27 22:53] VITALS: BP 148/78; PULSE 93; RESP 20; TEMP 36.9; O2SAT 98
[2024-02-27 23:00] VITALS: BP 141/71; PULSE 95; RESP 15; O2SAT 99
[2024-02-27 23:08] VITALS: BP 141/71; PULSE 88; RESP 17; TEMP 36.8; O2SAT 100
[2024-02-27 23:13] LABS: Lactic Acid 1.9 mmol/L (0.4-1.9)
[2024-02-27 23:27] LABS: Reflex Troponin-HS? (from REC) Y
[2024-02-27] MEDS: Furosemide 40 MG/4 ML Vial IV (23:39)
--- NOTE | 2024-02-27 23:56 | HP.PCM_ITS ---
[facility] - General General Date of Admission: 02/27/24 Date of Service: 02/27/24 Chief Complaint: Anemia [facility] Narrative ANANTH DAVE, is a 88 F who presents to the emergency room due to abnormal labs obtained as an outpatient. Hemoglobin was 6.8 and bilirubin was 3.7. She has had a history of elevated bilirubin. The patient also complains of increased leg swelling over the past several months getting worse significantly over the past 3 weeks causing her to have more difficulty with ambulation. The patient has been taking Eliquis for her atrial fibrillation. In the emergency room patient was typed crossed and transfused 1 unit packed red blood cells and given 40 mg of IV Lasix. Patient denies any chest pain, shortness of breath, fever or chills at present time. Per her daughter who is a nurse and caregiver she reports her skin tone as more jaundiced than her normal baseline at this time. Patient also has increased redness on bilateral lower extremities below the knees for which she has been taking doxycycline. Patient will be admitted to a general medical floor where she can continue her transfusion and diuresis. [facility] Medical History (Updated 02/28/24 @ 00:[address] Charlie Andrade MD) Acquired atrial septal defect (ASD) Multiple thyroid nodules Osteopenia Normocytic anemia Pericardial effusion Non-rheumatic tricuspid valve insufficiency Non-rheumatic mitral regurgitation Pseudophakia Essential hypertension Atrial fibrillation Bee sting reaction Bronchitis Fatigue Cystic thyroid nodule Hemorrhoid Murmur, heart Home Medications ?Medication ?Instructions ?Recorded ?Last Taken ?Type apixaban 5 mg tablet (Eliquis) 5 mg PO BID 11/13/20 12/09/20 History calcium 500 mg-vitamin D3 500 1 tab PO DAILY 11/13/20 Unknown History unit-vitamin K 40 mcg chewable tablet (Viactiv) metoprolol succinate 100 mg 100 mg PO DAILY 11/27/20 12/09/20 History tablet,extended release 24 hr vitamins A,C,V-cjgy-ahibjh 4,296 1 cap PO DAILY 07/06/22 Unknown History mcg-226 mg-90 mg capsule (PreserVision AREDS) spironolactone 25 mg tablet 25 mg PO DAILY #90 tabs 08/01/23 Unknown Rx furosemide 40 mg tablet (Lasix) 40 mg PO DAILY #90 tabs 12/09/23 Unknown Rx cholecalciferol (vitamin D3) 125 125 mcg PO Q OTHER DAY 12/23/23 Unknown History mcg (5,000 unit) tablet cyanocobalamin (vitamin B-12) 1,000 mcg PO Q OTHER DAY 12/23/23 Unknown History 1,000 mcg tablet doxycycline hyclate 100 mg capsule 100 mg PO BID 02/27/24 Unknown History Allergy/AdvReac Type Severity Reaction Status Date / Time amoxicillin (From Trimox) Allergy Severe throat Verified 02/27/24 19:48 swelling lisinopril Allergy Severe Angioedema Verified 02/27/24 19:48 amlodipine AdvReac Mild swelling Verified 02/27/24 19:48 ciprofloxacin (From Cipro) AdvReac GI upset Verified 02/27/24 19:48 diphenhydramine (From AdvReac jittery Verified 02/27/24 19:48 Benadryl) Family History (Reviewed 12/23/23 @ 15:25 by Blue Shukla [employer] MACHINE OPERATOR, [employer] SACKING MACHINE OPERATOR-C) Mother Diabetes Father Myocardial infarction CAD (coronary artery disease) Surgical History (Reviewed 12/23/23 @ 15:25 by Blue Shukla [employer] CH[employer] SACKING MACHINE OPERATOR, [employer] CHIP SACKING MACHINE OPERATOR-C) History of cholecystectomy History of tubal ligation History of tonsillectomy S/P colonoscopy Social History (Reviewed 12/23/23 @ 15:25 by Blue Shukla [employer] CHIP SACKING MACHINE OPERATOR, [employer] CHIP SACKING MACHINE OPERATOR-C) Smoking Status: Never smoker alcohol intake: current details: glass wine daily substance use type: does not use caffeine: Yes Type: coffee Number of servings: 1 ROS Constitutional Constitutional: Reports change in weight and weight gain Eyes Eyes: Denies blurry vision ENT HEENT: Denies abnormal hearing Cardiovascular Cardiovascular: Denies chest pain Respiratory/Chest Respiratory/Chest: Reports shortness of breath with exertion Gastrointestinal Gastrointestinal: Denies abdominal pain Genitourinary Genitourinary: Denies dysuria Musculoskeletal Musculoskeletal: Reports extremity pain Integumentary Integumentary: Reports jaundice Neurologic Neurologic: Denies abnormal gait or abnormal speech Psychiatric Psychiatric: Denies anxiety Vital Signs Vital Signs Vital Signs: 02/27/24 19:48 02/27/24 20:48 02/27/24 21:41 Temperature 98.1 F Temperature Source Oral Pulse Rate 112 H 93 Respiratory Rate 20 H 18 Respiratory Effort Normal Short of Breath Respiratory Pattern Normal Blood Pressure 143/79 H 140/63 H Blood Pressure Mean 100 88 Pulse Ox 96 97 Oxygen Delivery Method Room Air Room Air 02/27/24 22:00 02/27/24 22:53 02/27/24 23:00 Temperature 98.4 F Temperature Source Oral Pulse Rate 99 93 95 Respiratory Rate 19 H 20 H 15 Respiratory Effort Respiratory Pattern Blood Pressure 139/54 H 148/78 H 141/71 H Blood Pressure Mean 82 101 94 Pulse Ox 100 98 99 Oxygen Delivery Method Room Air Room Air Room Air 02/27/24 23:08 Temperature 98.2 F Temperature Source Oral Pulse Rate 88 Respiratory Rate 17 Respiratory Effort Respiratory Pattern Blood Pressure 141/71 H Blood Pressure Mean 94 Pulse Ox 100 Oxygen Delivery Method Room Air Weight Weight: 198 lb 6.4 oz Body Mass Index (BMI) 30.2 Physical Exam Const alert, oriented x3 and no apparent distress General Appearance: cooperative and well developed HEENT normocephalic and head/scalp atraumatic Eyes PERRL Neck no lymphadenopathy Lymph Lymphatic: no lymphadenopathy noted Resp normal respiratory effort, normal air movement and clear to auscultation bilaterally Cardio regular rate, S1 normal heart sound and S2 normal heart sound Rhythm: abnormal rhythm irregularly irregular Extremity normal capillary refill Skin General Skin Exam: no breakdown Wound Narrative: 4+ lower extremity edema with erythema bilaterally on lower extremities Neuro CN's II-XII intact bilaterally Psych thought process normal, cooperative and affect normal Results Lab / Micro Data 02/27/24 20:38 02/27/24 20:38 Labs: Laboratory Results - last 24 hr 02/27/24 20:38: WBC 7.8, RBC 2.94 L, Hgb 6.8 L, Hct 22.0 L, MCV 74.8 L, MCH 23.1 L, MCHC 30.9 L, RDW Std Deviation 52.8 H, RDW Coeff of Simona 19.8 H, Plt Count 313, MPV 9.9, Immature Gran % (Auto) 0.400, Neut % (Auto) 40.2 L, Lymph % (Auto) 31.0, [place] % (Auto) 25.5 H, Eos % (Auto) 1.7, Baso % (Auto) 1.2 H, Absolute Neuts (auto) 3.1, Absolute Lymphs (auto) 2.42, Nucleated RBC % 0, Differential Comment SCANNED, Diff Path Review May foll, Reactive Lymphocytes 1+, Toxic Granulation 1+, Polychromasia RARE, Hypochromasia 2+, Sickle Cells RARE, Target Cells 2+, Ovalocytes 1+, Schistocytes RARE, PT 27.3 H, INR 2.6, APTT 40.6 H, S odium 133 L, Potassium 3.8, Chloride 100, Carbon Dioxide 24.0, Anion Gap 9, BUN 12, Creatinine 0.76, Estim Creat Clear Calc 59.24, Est GFR (MDRD) Af Amer 93, Est GFR (MDRD) Non-Af 77, BUN/Creatinine Ratio 15.8, Glucose 145 H, Calcium 8.8, Total Bilirubin 3.50 H, Direct Bilirubin 0.82 H, AST 17, ALT 14, Alkaline Phosphatase 129 H, Troponin I High Sens 12, B-Natriuretic Peptide 659.5 H, Total Protein 5.6 L, Albumin 3.2, Globulin 2.4, Lipase 42, Blood Type O POSITIVE, Antibody Screen NEGATIVE, Crossmatch See Detail 02/27/24 22:35: Lactic Acid 1.9 Micro: Microbiology 02/27/24 21:35 Stool Stool Occult Blood (DIANA) - Final Occult Blood Positive Imaging Radiology Impression Abdomen/Pelvis CT 02/27/24 21:18 IMPRESSION: Hepatomegaly with steatosis. 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 Cholecystectomy. No biliary dilatation. Small amount of ascites. Anasarca. Bilateral pleural effusions larger on the right with partial compressive right lower lobe atelectasis. Electronically Signed: Arabella Persaud MD at 22:59 EDT Reading Location ID and State: [facility] / [place] Tel , Service support , Chest X-Ray 02/27/24 21:50 IMPRESSION: Bilateral pleural effusions greater on the right with associated right basilar consolidation/pneumonia or atelectasis. Electronically Signed: Arabella Persaud MD at 22:14 EDT , Assessment & Plan Assessment/Plan (1) Bilateral lower extremity edema: (2) Atrial fibrillation: QUALIFIERS: Atrial fibrillation type: unspecified Qualified Code(s): I48.91 - Unspecified atrial fibrillation (3) Anemia: (4) Elevated bilirubin: PLAN: Plan 1. Anemia, GI bleed?admit patient to general medical floor, continue transfusion packed red blood cells initiated in the emergency room, CBC in the a.m., IV Protonix 40 mg twice daily. Hold anticoagulation 2. Elevated bilirubin with INR 2.5 due to chronic liver disease?will repeat CMP and INR in AM. This patient may not need further treatment with Eliquis for anticoagulation(A-Fib) in the future due to INR of 2.5. Will order hepatitis panel if 1 has not been done 3. Lower extremity edema with cellulitis?continue doxycycline that she has been taking as an outpatient, continue diuresis with Lasix 4. DVT prophylaxis?not necessary at this time due to INR of 2.5
[2024-02-28] VITALS (16 sets, daily range): BP systolic 101–153; BP diastolic 43–94; PULSE 75–100; RESP 14–18; TEMP 36.4–36.8; O2SAT 95–98; BMI 29.8; BMI 29.7
[2024-02-28 00:05] LABS: Troponin-I HS 14 pg/mL (3.0-54.0)
[2024-02-28] MEDS: 0.9% Saline Lock 10 ML Syringe IV ×2 (02:38→20:53)
[2024-02-28 06:28] LABS: Absolute Lymphocyte Count 2.25 X10^3/uL (0.83-4.51); Absolute Neutrophil Count 3.4 X10^3/uL (2.0-7.7); Basophil# 0.08 X10^3/uL; Eosinophil# 0.08 X10^3/uL; Hematocrit 24.8 % (37-47); Hemoglobin 7.8 g/dL (12.0-15.0); Lymphocyte # 2.25 X10^3/ul (0.83-4.51); Lymphocyte % 29.4 % (19-41); Mean Corp Hgb Conc 31.5 g/dL (32-36); Mean Corpuscular Volume 76.3 fL (81-99); Monocyte# 1.78 X10^3/uL; Monocyte% 23.3 % (0-10); NRBC Flagged by Analyzer 0 % (0-5); Neutrophil # 3.44 X10^3/uL (2.7-7.7); POSITIVE DIFFERENTIAL YES; POSITIVE MORPHOLOGY YES; Platelet Count 286 K/mm3 (150-450); RBC Distribution Width CV 21.3 % (11.6-14.6); RBC Distribution Width SD 58.4 fl (35.1-43.9); Red Blood Count 3.25 M/mm3 (4.2-5.4); White Blood Count 7.7 K/mm3 (4.4-11.0)
[2024-02-28 06:38] LABS: ALB/GLOB Ratio 1.5 RATIO (0.9-2.4); AST(SGOT) 16 U/L (15-37); Alanine Aminotransfer ALT/SGPT 13 U/L (13-56); Albumin, Serum 3.1 g/dL (3.2-5.0); Alkaline Phosphatase 109 U/L (45-117); Anion Gap 7 (5-15); BUN 10 mg/dL (7-18); BUN/Creat Ratio 14.9 RATIO (10-20); Calcium,Total 8.5 mg/dL (8.5-10.1); Chloride 99 mmol/L (98-107); Creatinine, Serum 0.67 mg/dL (0.55-1.02); EST Glomerular Filtration Rate 88 mL/min (>60); Est Glom Filt Rate - Afr Amer 107 mL/min (>60); Estimated Creatinine Clearance 58.92 ml/min; Globulin 2.1 g/dL (2.2-4.2); Glucose 120 mg/dL (74-106); Potassium 3.4 mmol/L (3.5-5.1); Protein, Total 5.2 g/dL (6.4-8.2); Sodium Level 133 mmol/L (136-145)
[2024-02-28 06:49] LABS: Differential Indicated SCAN CRITERIA MET
[2024-02-28 07:24] LABS: Anisocytosis 2+; Differential Comment SCANNED; Hypochromasia 2+; Polychromasia 1+
[2024-02-28 08:36] LABS: Bilirubin, Direct 0.92 mg/dL (0.00-0.30); Ferritin 15 ng/mL (8-252); Iron 109 ug/dL (50-170); Iron Binding Capacity,Total 486 ug/dL (250-450); PERCENT IRON SATURATION 22.4 % (15.0-55.0)
[2024-02-28 08:44] LABS: Prothrombin Time (Protime)PT. 22.6 SECONDS (11.7-14.9)
[2024-02-28] MEDS: Pantoprazole Sodium 40 MG in 0.9% Normal Saline (100mL MB+) 100 ML 330 MG IV ×2 (09:59→20:53)
[2024-02-28] MEDS: Potassium Chloride Oral Tablet 20 MEQ 40 MEQ PO (09:59)
[2024-02-28] MEDS: Doxycycline 100 MG CAPSULE PO (10:00)
[2024-02-28] MEDS: Metoprolol(XL)Succ 100 MG Tablet PO (10:00)
[2024-02-28] MEDS: Spironolactone 25 MG Tablet PO (10:01)
--- NOTE | 2024-02-28 12:41 | PN_ITS ---
Subjective Subjective Patient seen and examined. She complained of feeling weak and tired. She was admitted o/a of abnormal labs as her Hb done on outpatient basis was 6.8 so she was sent in to the ED. She also had a history of elevated biliribuin and had been having worsening leg swelling, which was why she went to see her PCP and was sent to the ED. She was on eliquis at home. She was transfused with a unit of PRBC on admission.She continues to feel weak and frail. Her INR was also elevated on admission. She denies any fever, chills, cough, chest pain or any abdominal pain. She says her legs are still swollen. Review of systems is otherwise negative. Hb today is 7.8. She remains visibly jaundiced. Objective Data Objective Data Vital Signs: Vital Signs Temp Pulse Resp BP Pulse Ox O2 Del Method 98.3 F 89 14 125/55 H 96 Room Air 02/28/24 09:43 02/28/24 10:00 02/28/24 09:43 02/28/24 10:00 02/28/24 09:43 02/28/24 09:43 Oxygen Delivery Method Room Air Weight: 196 lb 3.382 oz Body Mass Index (BMI) 29.8 Intake & Output: Intake and Output for Last 24 Hours 02/26/24 02/27/24 02/28/24 23:59 23:59 23:59 Intake Total 0 / 0 830 / 830 Output Total 2300 / 2300 Balance 0 / 0 -1470 / -1470 Lab / Micro Data 02/28/24 05:39 02/28/24 05:39 Labs: Laboratory Results - last 24 hr 02/27/24 20:38: WBC 7.8, RBC 2.94 L, Hgb 6.8 L, Hct 22.0 L, MCV 74.8 L, MCH 23.1 L, MCHC 30.9 L, RDW Std Deviation 52.8 H, RDW Coeff of Simona 19.8 H, Plt Count 313, MPV 9.9, Immature Gran % (Auto) 0.400, Neut % (Auto) 40.2 L, Lymph % (Auto) 31.0, Claiborne % (Auto) 25.5 H, Eos % (Auto) 1.7, Baso % (Auto) 1.2 H, Absolute Neuts (auto) 3.1, Absolute Lymphs (auto) 2.42, Nucleated RBC % 0, Differential Comment SCANNED, Diff Path Review September foll, Reactive Lymphocytes 1+, Toxic Granulation 1+, Polychromasia RARE, Hypochromasia 2+, Sickle Cells RARE, Target Cells 2+, Ovalocytes 1+, Schistocytes RARE, PT 27.3 H, INR 2.6, APTT 40.6 H, S odium 133 L, Potassium 3.8, Chloride 100, Carbon Dioxide 24.0, Anion Gap 9, BUN 12, Creatinine 0.76, Estim Creat Clear Calc 59.24, Est GFR (MDRD) Af Amer 93, Est GFR (MDRD) Non-Af 77, BUN/Creatinine Ratio 15.8, Glucose 145 H, Calcium 8.8, Total Bilirubin 3.50 H, Direct Bilirubin 0.82 H, AST 17, ALT 14, Alkaline Phosphatase 129 H, Troponin I High Sens 12, B-Natriuretic Peptide 659.5 H, Total Protein 5.6 L, Albumin 3.2, Globulin 2.4, Lipase 42, Blood Type O POSITIVE, Antibody Screen NEGATIVE, Crossmatch See Detail 02/27/24 22:35: Lactic Acid 1.9 02/27/24 23:30: Troponin I High Sens 14 02/28/24 05:39: WBC 7.7, RBC 3.25 L, Hgb 7.8 L, Hct 24.8 L, MCV 76.3 L, MCH 24.0 L, MCHC 31.5 L, RDW Std Deviation 58.4 H, RDW Coeff of Simona 21.3 H, Plt Count 286, MPV 10.0, Immature Gran % (Auto) 0.300, Neut % (Auto) 45.0 L, Lymph % (Auto) 29.4, Claiborne % (Auto) 23.3 H, Eos % (Auto) 1.0, Baso % (Auto) 1.0, Absolute Neuts (auto) 3.4, Absolute Lymphs (auto) 2.25, Nucleated RBC % 0, Differential Comment SCANNED, Polychromasia 1+, Hypochromasia 2+, Anisocytosis 2+, Sodium 133 L, Potassium 3.4 L, Chloride 99, Carbon Dioxide 27.0, Anion Gap 7, BUN 10, Creatinine 0.67, Estim Creat Clear Calc 58.92, Est GFR (MDRD) Af Amer 107, Est GFR (MDRD) Non-Af 88, BUN/Creatinine Ratio 14.9, Glucose 120 H, Calcium 8.5, Iron 109, TIBC 486 H, Iron Saturation 22.4, Ferritin 15, Total Bilirubin 5.40 H, Direct Bilirubin 0.92 H, AST 16, ALT 13, Alkaline Phosphatase 109, Total Protein 5.2 L, Albumin 3.1 L, Globulin 2.1 L, Albumin/Globulin Ratio 1.5 02/28/24 08:08: PT 22.6 H, INR 2.0 Micro: Microbiology 02/27/24 21:35 Stool Stool Occult Blood (DIANA) - Final Occult Blood Positive Radiography Diagnostic Testing: Radiology Impression Abdomen/Pelvis CT 02/27/24 21:18 IMPRESSION: Hepatomegaly with steatosis. 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 Cholecystectomy. No biliary dilatation. Small amount of ascites. Anasarca. Bilateral pleural effusions larger on the right with partial compressive right lower lobe atelectasis. Electronically Signed: Arabella Persaud MD at 22:59 EDT , Chest X-Ray 02/27/24 21:50 IMPRESSION: Bilateral pleural effusions greater on the right with associated right basilar consolidation/pneumonia or atelectasis. Electronically Signed: Arabella Persaud MD at 22:14 EDT , Physical Exam Const alert, oriented x3 and no apparent distress Constitutional Narrative: frail, pale and jaundiced. General Appearance: cooperative HEENT normocephalic and head/scalp atraumatic HEENT Narrative: pale, jaundiced Neck no lymphadenopathy, supple and no JVD Lymph Lymphatic: no lymphadenopathy noted and no lymphedema noted Resp normal respiratory effort, normal air movement and clear to auscultation bilaterally Cardio regular rate, regular rhythm, S1 normal heart sound, S2 normal heart sound and no murmurs GI normal to inspection, nondistended, normoactive bowel sounds, soft to palpation, non-tender and non-distended Extremity Extremity Narrative: bilateral lower extremity pitting edema 2+, with mild erythema and papular rash on the everett of RLE. Nontender to palpationas under extremity Neuro CN's II-XII intact bilaterally, no focal motor deficits, no sensory deficits noted and deep tendon reflexes 2+ bilaterally Motor Exam: strength 5/5 throughout and general weakness Psych thought process normal and cooperative Appearance: appropriate Assessment & Plan Assessment/Plan (1) Elevated bilirubin: (2) Anemia: PLAN: Plan #Acute on chronic anemia * Etiology is unclear. Baseline hemoglobin from 11/17/2023 was 9.7. Hemoglobin was down to 6.8 on admission and after transfusion of 1 unit of packed red blood cells, it is up to 7.8 today * INR is down to 2 today. Stool for occult blood was positive. * She was on eliquis and so cannot rule out an occult GI bleed * consult GI. ON IV pantoprazole 40mg bid. * Iron profile showed iron level of 109 with iron saturation of 22.4 and ferritin level of 15. TIBC is elevated at 486. She is therefore not iron deficient though her level of iron stores are low at 15 of ferritin. * Keep n.p.o. pending GI evaluation. Transfuse to keep hemoglobin more than 7. * My concern is she may be hemolyzing also in light of the anemia and elevated bilirubin. Her direct bilirubin is elevated at 0.92 some concern she may have an underlying liver pathology. * #Hyperbilirubinemia * Total bilirubin has trended up slightly to 5.4. She does have a direct bilirubinemia 2 with directly Magno being elevated at 0.93. AST and ALT as well as ALP are within normal limits though. * Hepatitis panel is pending. * gastroenterology consulted * CT of the abdomen and pelvis showed hepatomegaly with steatosis and vascular lesion in the right lobe of the liver with portosystemic shunt presumed to be vascular malformation and not significantly changed compared to prior; cholecystectomy with no biliary dilatation and small amount of ascites and anasarca. * Her BNP is also elevated so it may be that she is having hepatic congestion from heart failure exacerbation. * Will monitor to see if liver enzymes will improve with diuresis. * #Heart failure preserved ejection fraction * BNP is elevated at over 600. On Lasix 40 mg daily at home. Will place on IV Lasix 40 mg twice daily here. Apply South wraps to lower extremities. Gets duplex of lower extremities to make sure she does not have a DVT but this is less likely in light of her elevated INR. * 2D echo from July 19, 2023 showed EF of 55% with no regional wall motion abnormality seen and moderately dilated right ventricle with mild to moderate global right ventricular systolic dysfunction and 3+ tricuspid valve insufficiency with pulmonary artery systolic pressure of 60 mmHg. * Monitor intake and output. Fluid restriction to 1500 cc daily. * Also on metoprolol and spironolactone. * #Hypokalemia: Potassium is 3.4. Will replace today and trend. #History of atrial fibrillation: On metoprolol. Eliquis held due to anemia and positive FOBT and supratherapeutic INR. #History of PFO versus ASD with intra-atrial shunt and mitral regurgitation * Echo findings as above. Follow-up with cardiology on outpatient basis. 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 Echo findings as above. #DVT prophylaxis: Not indicated as INR is therapeutic. INR was 2.6 yesterday and is due today. CODE STATUS: DNR CCA no intubation * Patient's CODE STATUS was entered as full code unverified on admission. I did college admissions counselor patient about the differences between full code, DNR CC and DNR CCA today. Patient tells me that he does not want CPR or intubation and already has a DNR CCA [employer] existing. I clarified if she was still wants this. She said she was 88 and did not want any aggressive measures to keep her alive. She wants to be treated for any medical condition but does not want CPR or intubation and clarified that she understood DNR CCA * Total time spent on evaluation and management of patient, reviewing chart and specialist notes, discussing plan with patient and his , discussion with nursing and ancillary staff as well as documentation: 18 minutes. * Charges/Coding Visit Charges Inpatient E&M: 17139 [facility] Hosp L3
--- NOTE | 2024-02-28 13:06 | CHAPLAIN ---
Type of Pastoral Visit _x__ Initial Visit ___ Follow-up Visit ___ On-call Visit ___ General Patient Visit ___ Spiritual Assessment ___ Family Conference ___ Bereavement ___ Rapid Response ___ Code Blue ___ Other (describe below) Pastoral Care Referral From _x__ Patient ___ Family ___ Nurse ___ Physician ___ Load Dropper ___ Parquet Floor Layer'S Helper ___ Other (describe below) Sacrament/Intervention _x__ Active listening ___ Anointing ___ Pentecostalism ___ Bereavement ___ Communion ___ Olive exploration ___ _x__ Life review _x__ Prayer ___ Reconciliation ___ Sacrament of Sick _x__ Supportive presence ___ Wedding ___ Other (describe below) Pastoral Comments patient is welcoming and pleasant; pt is able to answer questions and gives much life review; pt has moved around a lot over her life due to being a ; pt is and lives around most of her family members in this area; pt speaks of being blessed and happy; pt states that she is a non practicing Muslim but believes in God and welcomes prayer for her life and needs; pt states other reasons for being positive and content
--- NOTE | 2024-02-28 13:12 | VDLE_ITS ---
Reason For Study: SWELLING RIGHT LEFT GSV is normal. GSV is normal. CFV is compressible, spontaneous, phasic, CFV is compressible, spontaneous, phasic, competent and demonstrates normal competent, and demonstrates normal augmentation. augmentation. FV is compressible, spontaneous, phasic, FV is compressible, spontaneous, phasic, competent and demonstrates normal competent and demonstrates normal augmentation. augmentation. T/P Trunk is compressible. POP V is compressible, spontaneous, phasic, POP V is compressible, spontaneous, phasic, competent and demonstrates normal competent and demonstrates normal augmentation. augmentation. T/P Trunk is compressible. PTV is compressible. PTV is compressible. Procedure This is a venous duplex using B-mode, color flow and spectral Doppler. Exam performed portable in patient room. A preliminary report was called and/or faxed to PCU. Bilateral PERV not visualized due to bandages/wraps. VL/Venous Duplex US - Sherwin Extrem Interpretation Summary Deep veins of the lower extremities are bilaterally patent and compressible seg mentally. There is no evidence of deep vein thrombosis on either side. Valvular competence appears in tact within the proximal deep venous systems bilaterally. The great saphenous veins appear bila terally patent and compressible segmentally. The peroneal veins were not visualized on either side due to the presence of bandages. Ordering Physician: Nelsy Garcia Referring Physician: Blue Lambert Performed By: Cecilia Dorantes, RAMANDEEP, RVT
[2024-02-28] MEDS: Lactated Ringers 1,000 ML 15 ML IV (13:18)
--- NOTE | 2024-02-28 13:45 | EGD_PTH ---
PATIENT: ANANTH DAVE LOC: [facility] U#:[id number] AGE/SX: 88/F ROOM: [facility] RE02/28/[address]: Dr. Nelsy Garcia MD : 1935 BED: 1 DIS: 03/03/2024 SPEC #: [id number] RECD: 02/28/24 18:14 STATUS: LUZMA AGOSTOLu #: [id number] DEUCE: 02/28/24 13:[address]: Dane Werner DEPT: SURGICAL PATHOLOGY RECD BY: Naz Villauneva ENTERED: 02/29/24 10:02 SP TYPE: EGD BIOPSY OT DR: MD Dr. Nelys Peters MD Dr. Paul Nielsen, MD Tissues: A - Duodenum, NOS B - Gastric mucous membrane Procedures: Surgery Specimen Level IV HEADER OPERATION: EGD with biospies PRE-OP DIAGNOSIS: Jaundice and anemia TISSUE SUBMITTED: A- Duodenum biopsy, B- Gastric body biopsy MICROSCOPIC DIAGNOSIS A. Duodenum, biopsy: Fragments of duodenal mucosa with mild non-specific chronic inflammation. B. Gastric body, biopsy: Mild gastritis. See microscopic description and comment. Russ 03/01/2024 COMMENT B. The results of immunohistochemistry for Helicobacter pylori will be reported separately ([id number]). MICROSCOPIC DESCRIPTION Slides are reviewed. B. The specimen shows fragments of gastric mucosa with chronic inflammatory cell infiltrates in the lamina propria consisting of lymphocytes and plasma cells, consistent with mild chronic gastritis. GROSS DESCRIPTION A. Received in fixative is one container labeled with the patient's name and designated Duodenum biopsy. The specimen consists of two irregular fragments of light hoskins soft tissue that in aggregate measure 0.6 x 0.3 x 0.1 cm. The specimen is totally submitted in one cassette. B. Received in fixative is one container labeled with the patient's name and designated Gastric body biopsy. The specimen consists of two irregular fragments of light hoskins soft tissue that in aggregate measure 0.8 x 0.4 x 0. cm. The specimen is totally submitted in one cassette. SJ 02/29/2024 TC:3 CPT:01826j2
--- NOTE | 2024-02-28 13:45 | IMM_PTH ---
PATIENT: ANANTH DAVE LOC: [facility] U#:[id number] AGE/SX: 88/F ROOM: [facility] RE02/28/[address]: Dr. Nelsy Garcia MD : 1935 BED: 1 DIS: 03/03/2024 SPEC #: [id number] RECD: 02/29/24 08:23 STATUS: SOUDora REQ #: [id number] EDUCE: 02/28/24 13:[address]: Dane Werner DEPT: IMMUNOHISTOCHEMISTRY RECD BY: Won Joyce ENTERED: 02/29/24 08:23 SP TYPE: IMMUNO OTHR DR: MD Dr. Nelsy Peters MD Dr. Paul Nielsen, MD Tissues: B - Gastric mucous membrane Procedures: H Pylori (initial) Comments: @ Ordering doctor for H.PYLORI edited from to @ zaid HAY at 02/29/24823 @ Submitting doctor edited from to @ zaid HAY at 02/29/24823 PHYSICIAN & [place] [id number] SPECIMEN INFORMATION: Tissue Source: B- Gastric body biopsy Clinical Info: Jaundice and anemia Specimen Number: [id number] CPT code: 84504 METHODOLOGY: Deparaffinized sections of prefer/formalin-fixed tissue or PAP/DQ stained slides are incubated with monoclonal/polyclonal antibodies/oligonucleotide probes. Localization is made via biotin free immunoperoxidase method. Appropriate controls are performed and reacted as expected. Results on target cell population are indicated in the following table: RESULTS: ANTIBODY / CLONE RESULT Block B H Pylori (polyclonal) negative These tests were developed and their performance characteristics determined by [facility]. They may not have been cleared or approved by the [place]. Food and Drug Administration. The FDA has determined that such clearance or approval is not necessary. The above immunohistochemical/dualISH markers are ordered and reviewed by the Pathologist. INTERPRETATION: B. Gastric body, biopsy: Negative for Helicobacter pylori organisms. 03/01/2024
--- NOTE | 2024-02-28 13:46 | CASEMGMT ---
ROMA CM to pt room at this time for initial assessment. Pt is currently off of the floor for a procedure. CM to follow.
--- NOTE | 2024-02-28 14:18 | CON.PCM.GI_ITS ---
HPI Consult Data Date of Consult: 02/28/24 HPI Narrative Reason for Consultation: Jaundice and anemia HPI Narrative: ANANTH DAVE, is a sBARBARA JOLIE, is a 88 F who presents to the emergency room due to abnormal labs obtained as an outpatient. Hemoglobin was 6.8 and bilirubin was 3.7. She has had a history of elevated bilirubin. The patient also complains of increased leg swelling over the past several months getting worse significantly over the past 3 weeks causing her to have more difficulty with ambulation. The patient has been taking Eliquis for her atrial fibrillation. In the emergency room patient was typed crossed and transfused 1 unit packed red blood cells and given 40 mg of IV Lasix. Patient denies any chest pain, shortness of breath, fever or chills at present time. Per her daughter who is a nurse and caregiver she reports her skin tone as more jaundiced than her normal baseline at this time. Patient also has increased redness on bilateral lower extremities below the knees for which she has been taking doxycycline. Patient will be admitted to a general medical floor where she can continue her transfusion and diuresis. [facility] Medical History Acquired atrial septal defect (ASD) Multiple thyroid nodules Osteopenia Normocytic anemia Pericardial effusion Non-rheumatic tricuspid valve insufficiency Non-rheumatic mitral regurgitation Pseudophakia Essential hypertension Atrial fibrillation Bee sting reaction Bronchitis Fatigue Cystic thyroid nodule Hemorrhoid Murmur, heart Home Medications ?Medication ?Instructions ?Recorded ?Last Taken ?Type apixaban 5 mg tablet (Eliquis) 5 mg PO BID 11/13/20 12/09/20 History calcium 500 mg-vitamin D3 500 1 tab PO DAILY 11/13/20 Unknown History unit-vitamin K 40 mcg chewable tablet (Viactiv) metoprolol succinate 100 mg 100 mg PO DAILY 11/27/20 12/09/20 History tablet,extended release 24 hr vitamins A,C,C-aeer-tghiky 4,296 1 cap PO DAILY 07/06/22 Unknown History mcg-226 mg-90 mg capsule (PreserVision AREDS) spironolactone 25 mg tablet 25 mg PO DAILY #90 tabs 08/01/23 Unknown Rx furosemide 40 mg tablet (Lasix) 40 mg PO DAILY #90 tabs 12/09/23 Unknown Rx cholecalciferol (vitamin D3) 125 125 mcg PO Q OTHER DAY 12/23/23 Unknown History mcg (5,000 unit) tablet cyanocobalamin (vitamin B-12) 1,000 mcg PO Q OTHER DAY 12/23/23 Unknown History 1,000 mcg tablet doxycycline hyclate 100 mg capsule 100 mg PO BID 02/27/24 Unknown History Allergy/AdvReac Type Severity Reaction Status Date / Time amoxicillin (From Trimox) Allergy Severe throat Verified 02/27/24 19:48 swelling lisinopril Allergy Severe Angioedema Verified 02/27/24 19:48 amlodipine AdvReac Mild swelling Verified 02/27/24 19:48 ciprofloxacin (From Cipro) AdvReac GI upset Verified 02/27/24 19:48 diphenhydramine (From AdvReac jittery Verified 02/27/24 19:48 Benadryl) Family History Mother Diabetes Father Myocardial infarction CAD (coronary artery disease) Surgical History History of cholecystectomy History of tubal ligation History of tonsillectomy S/P colonoscopy Social History (Updated 02/28/24 @ 13:00 by Bonny Badillo) current occupational status: retired Smoking Status: Never smoker alcohol intake: current details: glass wine daily substance use type: does not use caffeine: Yes Type: coffee Number of servings: 1 ROS Constitutional Constitutional: Reports change in weight and weight gain Eyes Eyes: Denies blurry vision ENT HEENT: Denies abnormal hearing Cardiovascular Cardiovascular: Denies chest pain Respiratory/Chest Respiratory/Chest: Reports shortness of breath with exertion Gastrointestinal Gastrointestinal: Denies abdominal pain Genitourinary Genitourinary: Denies dysuria Musculoskeletal Musculoskeletal: Reports extremity pain Integumentary Integumentary: Reports jaundice Neurologic Neurologic: Denies abnormal gait or abnormal speech Psychiatric Psychiatric: Denies anxiety Physical Exam Const alert, oriented x3 and no apparent distress Constitutional Narrative: frail, pale and jaundiced. General Appearance: cooperative HEENT normocephalic and head/scalp atraumatic HEENT Narrative: pale, jaundiced Neck no lymphadenopathy, supple and no JVD Lymph Lymphatic: no lymphadenopathy noted and no lymphedema noted Resp normal respiratory effort, normal air movement and clear to auscultation bilaterally Cardio regular rate, regular rhythm, S1 normal heart sound, S2 normal heart sound and no murmurs GI normal to inspection, nondistended, normoactive bowel sounds, soft to palpation, non-tender and non-distended Extremity Extremity Narrative: bilateral lower extremity pitting edema 2+, with mild erythema and papular rash on the everett of RLE. Nontender to palpationas under extremity Neuro CN's II-XII intact bilaterally, no focal motor deficits, no sensory deficits noted and deep tendon reflexes 2+ bilaterally Motor Exam: strength 5/5 throughout and general weakness Psych thought process normal and cooperative Appearance: appropriate Lab / Micro Data 02/28/24 05:39 02/28/24 05:39 Labs: Laboratory Results - last 24 hr 02/27/24 20:38: WBC 7.8, RBC 2.94 L, Hgb 6.8 L, Hct 22.0 L, MCV 74.8 L, MCH 23.1 L, MCHC 30.9 L, RDW Std Deviation 52.8 H, RDW Coeff of Sim[place] 19.8 H, Plt Count 313, MPV 9.9, Immature Gran % (Auto) 0.400, Neut % (Auto) 40.2 L, Lymph % (Auto) 31.0, [place] % (Auto) 25.5 H, Eos % (Auto) 1.7, Baso % (Auto) 1.2 H, Absolute Neuts (auto) 3.1, Absolute Lymphs (auto) 2.42, Nucleated RBC % 0, Differential Comment SCANNED, Diff Path Review May foll, Reactive Lymphocytes 1+, Toxic Granulation 1+, Polychromasia RARE, Hypochromasia 2+, Sickle Cells RARE, Target Cells 2+, Ovalocytes 1+, Schistocytes RARE, PT 27.3 H, INR 2.6, APTT 40.6 H, S odium 133 L, Potassium 3.8, Chloride 100, Carbon Dioxide 24.0, Anion Gap 9, BUN 12, Creatinine 0.76, Estim Creat Clear Calc 59.24, Est GFR (MDRD) Af Amer 93, Est GFR (MDRD) Non-Af 77, BUN/Creatinine Ratio 15.8, Glucose 145 H, Calcium 8.8, Total Bilirubin 3.50 H, Direct Bilirubin 0.82 H, AST 17, ALT 14, Alkaline Phosphatase 129 H, Troponin I High Sens 12, B-Natriuretic Peptide 659.5 H, Total Protein 5.6 L, Albumin 3.2, Globulin 2.4, Lipase 42, Blood Type O POSITIVE, Antibody Screen NEGATIVE, Crossmatch See Detail 02/27/24 22:35: Lactic Acid 1.9 02/27/24 23:30: Troponin I High Sens 14 02/28/24 05:39: WBC 7.7, RBC 3.25 L, Hgb 7.8 L, Hct 24.8 L, MCV 76.3 L, MCH 24.0 L, MCHC 31.5 L, RDW Std Deviation 58.4 H, RDW Coeff of [place] 21.3 H, Plt Count 286, MPV 10.0, Immature Gran % (Auto) 0.300, Neut % (Auto) 45.0 L, Lymph % (Auto) 29.4, [place] % (Auto) 23.3 H, Eos % (Auto) 1.0, Baso % (Auto) 1.0, Absolute Neuts (auto) 3.4, Absolute Lymphs (auto) 2.25, Nucleated RBC % 0, Differential Comment SCANNED, Polychromasia 1+, Hypochromasia 2+, Anisocytosis 2+, Sodium 133 L, Potassium 3.4 L, Chloride 99, Carbon Dioxide 27.0, Anion Gap 7, BUN 10, Creatinine 0.67, Estim Creat Clear Calc 58.92, Est GFR (MDRD) Af Amer 107, Est GFR (MDRD) Non-Af 88, BUN/Creatinine Ratio 14.9, Glucose 120 H, Calcium 8.5, Iron 109, TIBC 486 H, Iron Saturation 22.4, Ferritin 15, Total Bilirubin 5.40 H, Direct Bilirubin 0.92 H, AST 16, ALT 13, Alkaline Phosphatase 109, Total Protein 5.2 L, Albumin 3.1 L, Globulin 2.1 L, Albumin/Globulin Ratio 1.5 02/28/24 08:08: PT 22.6 H, INR 2.0 Micro: Microbiology 02/27/24 21:35 Stool Stool Occult Blood (DIANA) - Final Occult Blood Positive Imaging Radiology Impression Abdomen/Pelvis CT 02/27/24 21:18 IMPRESSION: Hepatomegaly with steatosis. 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 Cholecystectomy. No biliary dilatation. Small amount of ascites. Anasarca. Bilateral pleural effusions larger on the right with partial compressive right lower lobe atelectasis. Electronically Signed: Arabella Persaud MD at 22:59 EDT , Chest X-Ray 02/27/24 21:50 IMPRESSION: Bilateral pleural effusions greater on the right with associated right basilar consolidation/pneumonia or atelectasis. Electronically Signed: Arabella Persaud MD at 22:14 EDT , Assessment & Plan Assessment/Plan (1) Bilateral lower extremity edema: (2) Atrial fibrillation: QUALIFIERS: Atrial fibrillation type: unspecified Qualified Code(s): I48.91 - Unspecified atrial fibrillation (3) Anemia: (4) Elevated bilirubin: PLAN: Plan 88-year-old comes in with painless jaundice and discovered to be anemic. Differential diagnosis does include autoimmune hemolytic anemia, microcytic anemia secondary to acute on chronic GI bleed, celiac disease, Gilbert's syndrome, Crigler-Sirisha syndrome type II 1. Anemia, GI bleed?she she has celiac profile along with iron studies, LDH, hemoglobin electrophoresis and upper endoscopy. She may need colonoscopy and capsule endoscopy. 2. Elevated bilirubin with INR 2.5 likely secondary to autoimmune hemolysis, [place] syndrome with vitamin K deficiency?check autoimmune labs 3. 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 Charges/Coding Visit Charges Inpatient E&M: 23743 Init Hosp L3
--- NOTE | 2024-02-28 14:20 | PRE.ANES_ITS ---
ASA Classification* ASA Classification ASA Classification: 3 Assessment & Plan Anesthesia* Anesthesia Assessment Anesthesia Assessment: Discussed sedation and/or anesthesia options, risks, benefits, and alternatives with patient/parents/legal guardian/POA. Questions invited. The patient/parents/legal guardian/POA seems to understand and agrees to proceed with anesthesia plan. Reviewed the physical assessment, medical history, allergy history and patient home medications list prior to surgery/procedure/anesthetic and documented any changes. Performed airway and anesthesia risk assessments. Anesthesia Type Anesthesia Type: MAC History Source History Obtained from:: Patient and Chart Anesthesia Focused Assessment* Temperature: 98 F Pulse Rate: 86 Blood Pressure: 110/90 Respiratory Rate: 14 Pulse Ox: 97 Oxygen Delivery Method: Room Air Airway Assessment Mouth opens: >3 cm Mallampati Score: IV Teeth Condition: Caps/Crowns (Crowns on molars are tight.) and Chipped/Broken (Multiple chipped teeth incisors) Neck Range of motion (ROM): Full ROM Pertinent Findings EKG Pertinent Findings:: February 27, 2024 A-fib with PVCs Focused Labs Anesthesia Preop lab: CBC WBC 7.7 K/mm3 (4.4-11.0) 02/28/24 05:39 RBC 3.25 M/mm3 (4.2-5.4) L 02/28/24 05:39 Hgb 7.8 g/dL (12.0-15.0) L 02/28/24 05:39 Hct 24.8 % (37-47) L 02/28/24 05:39 Plt Count 286 K/mm3 (150-450) 02/28/24 05:39 CHEMISTRY Potassium 3.4 mmol/L (3.5-5.1) L 02/28/24 05:39 Sodium 133 mmol/L (136-145) L 02/28/24 05:39 Magnesium 2.2 mg/dL (1.6-2.6) 02/27/24 11:36 Phosphorus 3.3 mg/dL (2.5-4.9) 12/17/19 08:16 BUN 10 mg/dL (7-18) 02/28/24 05:39 Creatinine 0.67 mg/dL (0.55-1.02) 02/28/24 05:39 Glucose 120 mg/dL (74-106) H 02/28/24 05:39 TSH 4.700 uIU/mL (0.358-3.740) H 02/27/24 11:36 COAG PT 22.6 SECONDS (11.7-14.9) H 02/28/24 08:08 Pre-Assessment Diagnosis/Proposed Procedure Planned Operative Procedure(s): EGD Anesthesia History Anesthesia History - tobacco sorter: Anesthesia History - tobacco sorter Hx Hospitalization Any Problems With Anesthesia No 02/28/24 12:59 Cholinesterase deficiency No 02/28/24 12:59 You/Your Family Experience No 02/28/24 12:59 fever (hyperthermia) with Relationship Recent Exposure to Contagious No 02/28/24 12:59 Disease Does patient have nerve No 02/28/24 12:59 stimulator Patient instructed to have device shut off --Does patient have Pacemaker No 02/28/24 12:54 or ICD? When Was Last Pacemaker Check QUESTION #4 FULL TEXT: You/Your Family Experience fever (hyperthermia) with Anesthesia Last Oral Intake Last Oral intake: Last Oral Intake NPO since 00:00 02/28/24 12:54 Meds taken in AM with sips of Yes 02/28/24 12:54 water? Meds patient instructed to see mar 02/28/24 12:54 take am of surgery PONV PONV - tobacco sorter: PONV - tobacco sorter Female HX of Motion Sickness HX of N/V After Surgery Non-Smoker Duration of Surgery greater than 60 minutes Number of Risk Factors PONV Score Height & Weight Height & Weight: Anesthesia: Height & Weight Height 5 ft 8.11 in 02/28/24 12:54 Weight: 89 kg 02/28/24 12:54 Body Mass Index (BMI) 29.7 02/28/24 12:54 Respiratory Assessment Respiratory Assessment - tobacco sorter: Respiratory Tract Infection Hx - tobacco sorter Hx Respiratory Tract Infection No 02/28/24 12:59 STOP Sleep Apnea STOP Sleep Apnea - tobacco sorter: STOP Sleep Apnea - tobacco sorter Hx Hypertension Yes: meds 02/28/24 00:47 Hx Sleep Apnea No 02/28/24 00:47 CPAP BIPAP Do you snore loudly (louder No 02/28/24 00:47 than talking or can be heard Do you often feel tired/ No 02/28/24 00:47 fatigued/ sleepy during daytime? Has anyone observed you stop No 02/28/24 00:47 breathing during sleep? STOP Results Negative 02/28/24 00:47 QUESTION #5 FULL TEXT : Do you snore loudly (louder than talking or can be heard through closed doors)? Tobacco Use History Tobacco Use History - tobacco sorter: Tobacco Use History - tobacco sorter Tobacco Use Smoking Status Never smoker 02/28/24 00:47 Hx Tobacco Use No 02/28/24 00:47 Years Smoking Packs Smoked per Day Smoking Cessation Date was within the last 15 years Hx Smoking Cessation Date Hx Smoking Cessation Counseling Hematologic Medial History Hematologic Hx - tobacco sorter: Hematologic Medical Hx - steel rigger Hx of Blood Transfusion No 02/28/24 00:47 Hx of Transfusion in last 3 No 02/28/24 00:47 Months Date of Last Transfusion (if within last 3 months) Ever experience any problems No 02/28/24 00:47 with transfusion(s)? Specify any problems Hx of Preganancy in last 3 No 02/28/24 00:47 Months Nurse Filling Out Transfusion JNORRIS 02/28/24 00:47 & Questions: Date: 02/28/24 10 00:47 Time: 01:00 02/28/24 00:47 Patient unable to answer at this time (ie. confused, unrespo /Reproduction History /Reproductive History - tobacco sorter: /Reproductive Hx- tobacco sorter Hx Now No 02/28/24 12:59 Gestational Age (in weeks): EDC: Hx Hx Para Hx Section SAB Active Medications Active Medications: Current Medications Generic Name Dose Route Start Last Admin Trade Name Freq PRN Reason Stop Dose Admin Calcium/Vitamin D 1 tablet 02/28/24 08:00 Calcium Carb/Vitamin D 1 Tablet Tablet PO DAILYCM SARTHAK Cholecalciferol 125 mcg 02/29/24 10:00 Cholecalciferol (Vit D3) 125 Mcg Capsule (5,000 Units) PO QODAY SARTHAK Cyanocobalamin 1,000 mcg 02/29/24 10:00 Cyanocobalamin 500 Mcg Tablet PO QODAY SARTHAK Doxycycline Monohydrate 100 mg 02/28/24 10:00 02/28/24 10:00 Doxycycline 100 Mg Capsule PO 100 mg BID SARTHAK Administration Furosemide 40 mg 02/28/24 18:00 Furosemide 40 Mg/4 Ml Vial IV BIDLX [facility] Protocol Pantoprazole Sodium 40 mg/ 110 mls @ 330 mls/hr 02/28/24 10:00 02/28/24 10:44 Sodium Chloride IV Infused Q12 SARTHAK Infusion Sodium Chloride 500 mls @ 15 mls/hr 02/28/24 01:50 IV PRN PRN Blood Transfusion Lactated Ringer's 1,000 mls @ 15 mls/hr 02/28/24 13:00 02/28/24 13:18 IV 15 mls/hr .Q48H SARTHAK Administration Metoprolol Succinate 100 mg 02/28/24 10:00 02/28/24 10:00 Metoprolol(Xl)Succ 100 Mg Tablet PO 100 mg DAILY [facility] Administration Protocol Multivitamins/Minerals 1 cap 02/28/24 10:00 Multivitamin (Healthy Eyes) Capsule PO DAILY [facility] Ondansetron HCl 4 mg 02/28/24 00:44 Ondansetron 4 Mg/2 Ml Vial IV Q8H PRN PRN NAUSEA/VOMITING Sodium Chloride 10 - 40 ml 02/28/24 01:50 02/28/24 02:38 0.9% Saline Lock 10 Ml Syringe IV 10 ml UD PRN Administration SALINE FLUSH Spironolactone 25 mg 02/28/24 10:00 02/28/24 10:01 Spironolactone 25 Mg Tablet PO 25 mg DAILY [facility] Administration Protocol [facility] Medical History Acquired atrial septal defect (ASD) Multiple thyroid nodules Osteopenia Normocytic anemia Pericardial effusion Non-rheumatic tricuspid valve insufficiency Non-rheumatic mitral regurgitation Pseudophakia Essential hypertension Atrial fibrillation Bee sting reaction Bronchitis Fatigue Cystic thyroid nodule Hemorrhoid Murmur, heart Home Medications ?Medication ?Instructions ?Recorded ?Last Taken ?Type apixaban 5 mg tablet (Eliquis) 5 mg PO BID 11/13/20 12/09/20 History calcium 500 mg-vitamin D3 500 1 tab PO DAILY 11/13/20 Unknown History unit-vitamin K 40 mcg chewable tablet (Viactiv) metoprolol succinate 100 mg 100 mg PO DAILY 11/27/20 12/09/20 History tablet,extended release 24 hr vitamins A,C,V-jgow-rtvcbx 4,296 1 cap PO DAILY 07/06/22 Unknown History mcg-226 mg-90 mg capsule (PreserVision AREDS) spironolactone 25 mg tablet 25 mg PO DAILY #90 tabs 08/01/23 Unknown Rx furosemide 40 mg tablet (Lasix) 40 mg PO DAILY #90 tabs 12/09/23 Unknown Rx cholecalciferol (vitamin D3) 125 125 mcg PO Q OTHER DAY 12/23/23 Unknown History mcg (5,000 unit) tablet cyanocobalamin (vitamin B-12) 1,000 mcg PO Q OTHER DAY 12/23/23 Unknown History 1,000 mcg tablet doxycycline hyclate 100 mg capsule 100 mg PO BID 02/27/24 Unknown History Allergy/AdvReac Type Severity Reaction Status Date / Time amoxicillin (From Trimox) Allergy Severe throat Verified 02/27/24 19:48 swelling lisinopril Allergy Severe Angioedema Verified 02/27/24 19:48 amlodipine AdvReac Mild swelling Verified 02/27/24 19:48 ciprofloxacin (From Cipro) AdvReac GI upset Verified 02/27/24 19:48 diphenhydramine (From AdvReac jittery Verified 02/27/24 19:48 Benadryl) Family History Mother Diabetes Father Myocardial infarction CAD (coronary artery disease) Surgical History History of cholecystectomy History of tubal ligation History of tonsillectomy S/P colonoscopy Social History current occupational status: retired Smoking Status: Never smoker alcohol intake: current details: glass wine daily substance use type: does not use caffeine: Yes Type: coffee Number of servings: 1 Review of Systems (Anesthesia) ROS Narrative System reviewed and no additional complaints, except as documented.
--- NOTE | 2024-02-28 14:57 | OP.EGD_ITS ---
Patient Name: Denia Banda Procedure Date: 02/28/2024 2:09 PM Date of : 1935 Age: 88 Procedure: Upper GI endoscopy Indications: Iron deficiency anemia Providers: Dane Werner DO Medicines: Monitored Anesthesia Care Patient Profile: This is an 88 year old female. Refer to note in patient chart for documentation of history and physical. Complications: No immediate complications. Procedure: Pre-Anesthesia Assessment: - Prior to the procedure, a History and Physical was performed, and patient medications and allergies were reviewed. The patient is competent. The risks and benefits of the procedure and the sedation options and risks were discussed with the patient. All questions were answered and informed consent was obtained. Patient identification and proposed procedure were verified in the pre-procedure area. Mental Status Examination: alert and oriented. Airway Examination: normal oropharyngeal airway and neck mobility. Respiratory Examination: clear to auscultation. CV Examination: normal. Prophylactic Antibiotics: The patient does not require prophylactic antibiotics. Prior Anticoagulants: The patient has taken no anticoagulant or antiplatelet agents. ASA Grade Assessment: II - A patient with mild systemic disease. After reviewing the risks and benefits, the patient was deemed in satisfactory condition to undergo the procedure. The anesthesia plan was to use monitored anesthesia care (MAC). Immediately prior to administration of medications, the patient was re-assessed for adequacy to receive sedatives. The heart rate, respiratory rate, oxygen saturations, blood pressure, adequacy of pulmonary ventilation, and response to care were monitored throughout the procedure. The physical status of the patient was re-assessed after the procedure. After obtaining informed consent, the endoscope was passed under direct vision. Throughout the procedure, the patient's blood pressure, pulse, and oxygen saturations were monitored continuously. The gastroscope was introduced through the mouth, and advanced to the third part of duodenum. The upper GI endoscopy was accomplished without difficulty. The patient tolerated the procedure well. Scope In: 2:40:59 PM Scope Out: 2:45:30 PM Total Procedure Duration Time 0 hours 4 minutes 31 seconds Findings: The examined esophagus was normal. Many non-bleeding linear gastric ulcers with no stigmata of bleeding were found in the gastric body. The largest lesion was 3 mm in largest dimension. Biopsies were taken with a cold forceps for histology. Verification of patient identification for the specimen was done. Biopsies were taken with a cold forceps for Helicobacter pylori testing. Verification of patient identification for the specimen was done. Estimated blood loss was minimal. No gross lesions were noted in the first portion of the duodenum. Biopsies were taken with a cold forceps for histology. Verification of patient identification for the specimen was done. Estimated blood loss was minimal. Impression: - Normal esophagus. - Non-bleeding gastric ulcers with no stigmata of bleeding. Biopsied. - No gross lesions in the first portion of the duodenum. Biopsied. Recommendation: - Discharge patient to home. - Resume previous diet. - Continue present medications. - Await pathology results. Procedure Code(s): --- Professional --- 90125, Esophagogastroduodenoscopy, flexible, transoral; with biopsy, single or multiple CPT copyright 2021 [employer]. All rights reserved. The codes documented in this report are preliminary and upon assistant to the vice president review may be revised to meet current compliance requirements. Dane Werner DO 02/28/2024 2:57:50 PM This report has been signed electronically. Number of Addenda: 0 Note Initiated On: 02/28/2024 2:09 PM
--- NOTE | 2024-02-28 14:58 | OP.CCLET_ITS ---
02/28/2024 Blue Lambert [address] [place] [address] Re : Upper GI endoscopy procedure for Denia Banda Dear Dr. Lambert This procedure was performed on Wednesday, February 28, 2024. My impressions and recommendations are as follows: Impressions : - Normal esophagus. - Non-bleeding gastric ulcers with no stigmata of bleeding. Biopsied. - No gross lesions in the first portion of the duodenum. Biopsied. Recommendations : - Discharge patient to home. - Resume previous diet. - Continue present medications. - Await pathology results. My findings are described in the full procedure note, which is enclosed. If I can be of further assistance, please feel free to contact me at . Sincerely, Dane Werner, 02/28/2024 2:57:50 PM This report has been signed electronically.
--- NOTE | 2024-02-28 14:59 | PCM.POST.ANE ---
Anesthesia: Postop Eval I Current Vital Signs Temperature: 98.1 F Pulse Rate: 87 Blood Pressure: 101/52 Respiratory Rate: 16 Pulse Ox: 95 Oxygen Delivery Method: Room Air Assessment Airway patent: Yes Spontaneous unlabored respirations: Yes Mental status: Awake and Calm nausea: No Vomiting: No Anesthesia Complication: No Fluid Hydration Crystalloid volume administer (ml): 600 Total IV fluid infused: 600 Progress Note Anesthesia document: Postop Eval 1 completed: Yes
[2024-02-28 15:06] LABS: Pathologist Review Reviewed
--- NOTE | 2024-02-28 15:58 | CASEMGMT ---
ROMA CASTLE Assessment Face to Face with patient for initial transition planning/care coordination assessment. ROMA CASTLE introduced self and role at [facility], pt voices understanding. Pt is A&Ox4 and is resting comfortably in bed and is calm. Pt daughter at bedside. Care providers, pharmacy, and demographics verified. Admitting dx: Anemia PCP: Blue Lambert Specialists: Friend (KENNEDI), SINTIA Preferred Pharmacy: [facility] Insurance: MCR A/B, WPS for life Prescription Benefit: Yes LNOK: Stephanie Vega ([facility]) Living Arrangements: Pt lives alone in a two story condo with a FFSU and 2 steps to enter with [employer] bars ADLs/IADLs: Ind Transportation: Self, daughter DME: [employer] at home but does not use. Pt daughter requests medical alert info. Information provided. HHC/SNF: denies hx or needs Pt?s goal: Home Plan: Home no needs. 6-click=20. No PT ordered. Pt denies the need for HHC or OP Tx needs. Aware to f/u with PCP is she changed her mind. Pt denies further questions or concerns at this time. Report given to MORTAR WORKER CM. Karis Paris RN, CM
--- NOTE | 2024-02-28 16:47 | PCM.POSTANE2 ---
Anesthesia Postop Eval I Sum Postop Eval Completion status Anesthesia document: Postop Eval 1 completed: Yes Anesthesia Postop Eval I Summary Anesthesia Postop Eval I Summary: Anesthesia Postop Eval I: Assessment Summary Airway patent Yes 02/28/24 15:01 [email or web address] Spontaneous unlabored Yes 02/28/24 15:01 [email or web address] respirations Mental status Awake,Calm 02/28/24 15:01 [email or web address] nausea No 02/28/24 15:01 [email or web address] Vomiting No 02/28/24 15:01 [email or web address] Anesthesia Postop Eval I: Fluid Summary Crystalloid volume administer 600 02/28/24 15:01 [email or web address] (ml) Colloids volume administered ( ml) Blood Product volume administered (ml) Total IV fluid infused 600 02/28/24 15:01 [email or web address] Anesthesia Postop Eval I: Summary Notes Anesthesia Complication No 02/28/24 15:01 [email or web address] Anesthesia Complication Comment: Post-operative progress note Anesthesia: Postop Eval II Evaluation Mental status: Awake and Calm Pain Level: 0 nausea: No Vomiting: No Complications Anesthesia Complication: No
[2024-02-28] MEDS: Furosemide 40 MG/4 ML Vial IV (17:34)
[2024-02-28] MEDS: Calcium Carb/Vitamin D 1 TABLET Tablet PO (17:35)
[2024-02-28] MEDS: Multivitamin (Healthy Eyes) Capsule 1 CAP PO (17:35)
[2024-02-29] VITALS (7 sets, daily range): BP systolic 103–135; BP diastolic 42–66; PULSE 68–78; RESP 14–18; TEMP 36.6–36.7; O2SAT 95–99
[2024-02-29 05:07] LABS: HEPATITIS B SURFACE AG Negative (Negative); Hep C Antibodies Non Reactive (Non Reactive); Hepatitis A IgM Antibody Negative (Negative); Hepatitis B Core AB IgM Negative (Negative)
[2024-02-29 06:50] LABS: Absolute Lymphocyte Count 2.35 X10^3/uL (0.83-4.51); Basophil# 0.08 X10^3/uL; Basophil% 1.1 % (0-1); Eosinophil# 0.15 X10^3/uL; Eosinophils% 2.1 % (0-5); Hematocrit 24.8 % (37-47); Hemoglobin 7.6 g/dL (12.0-15.0); Lymphocyte # 2.35 X10^3/ul (0.83-4.51); Lymphocyte % 32.7 % (19-41); Mean Corp Hgb Conc 30.6 g/dL (32-36); Mean Corpuscular Hgb 23.6 pg (27.0-32.0); Mean Platelet Vol. 9.5 fl (6.2-12.0); Monocyte# 1.56 X10^3/uL; Monocyte% 21.7 % (0-10); NRBC Flagged by Analyzer 0.3 % (0-5); Neutrophil # 3.02 X10^3/uL (2.7-7.7); POSITIVE DIFFERENTIAL YES; POSITIVE MORPHOLOGY YES; Platelet Count 245 K/mm3 (150-450); RBC Distribution Width CV 21.3 % (11.6-14.6); RBC Distribution Width SD 58.7 fl (35.1-43.9); Red Blood Count 3.22 M/mm3 (4.2-5.4); White Blood Count 7.2 K/mm3 (4.4-11.0)
[2024-02-29 07:06] LABS: Differential Indicated SCAN CRITERIA MET
[2024-02-29 08:26] LABS: ALB/GLOB Ratio 1.5 RATIO (0.9-2.4); AST(SGOT) 19 U/L (15-37); Alanine Aminotransfer ALT/SGPT 12 U/L (13-56); Albumin, Serum 2.7 g/dL (3.2-5.0); Alkaline Phosphatase 92 U/L (45-117); Anion Gap 6 (5-15); BUN 11 mg/dL (7-18); BUN/Creat Ratio 16.6 RATIO (10-20); Calcium,Total 8.5 mg/dL (8.5-10.1); Chloride 105 mmol/L (98-107); Creatinine, Serum 0.66 mg/dL (0.55-1.02); EST Glomerular Filtration Rate 90 mL/min (>60); Est Glom Filt Rate - Afr Amer 108 mL/min (>60); Estimated Creatinine Clearance 58.92 ml/min; Globulin 1.8 g/dL (2.2-4.2); Glucose 99 mg/dL (74-106); Potassium 3.9 mmol/L (3.5-5.1); Protein, Total 4.5 g/dL (6.4-8.2); Sodium Level 137 mmol/L (136-145)
[2024-02-29 09:15] LABS: Differential Comment SCANNED; Platelet Estimate ADEQUATE (ADEQ)
[2024-02-29 09:16] LABS: Anisocytosis 2+
[2024-02-29 09:17] LABS: Acanthocytes 1+; Bite Cell RARE; Hypochromasia 3+; Schistocytes 1+; Target Cells 2+
[2024-02-29] MEDS: Cholecalciferol (Vit D3) 125 MCG CAPSULE (5,000 UNITS) PO (09:45)
[2024-02-29] MEDS: Spironolactone 25 MG Tablet PO (09:45)
[2024-02-29] MEDS: Cyanocobalamin 500 MCG Tablet 1000 MCG PO (09:45)
[2024-02-29] MEDS: Furosemide 40 MG/4 ML Vial IV ×2 (09:45→17:21)
[2024-02-29] MEDS: Pantoprazole Sodium 40 MG in 0.9% Normal Saline (100mL MB+) 100 ML 330 MG IV ×2 (09:45→21:57)
[2024-02-29] MEDS: Multivitamin (Healthy Eyes) Capsule 1 CAP PO (09:46)
[2024-02-29] MEDS: Calcium Carb/Vitamin D 1 TABLET Tablet PO (09:46)
[2024-02-29 10:00] LABS: International Normalized Ratio 1.7; Prothrombin Time (Protime)PT. 20.2 SECONDS (11.7-14.9)
[2024-02-29] MEDS: Metoprolol(XL)Succ 100 MG Tablet PO (10:58)
--- NOTE | 2024-02-29 12:50 | PN_ITS ---
Subjective Subjective Patient seen and examined. She had no active complaints today. She had an uneventful night. She denies any fever or chills, palpitations, dizziness, nausea vomiting or any other symptoms. Review of systems otherwise negative. Objective Data Objective Data Vital Signs: Vital Signs Temp Pulse Resp BP Pulse Ox O2 Del Method 97.9 F 70 18 123/56 H 95 Room Air 02/29/24 09:41 02/29/24 10:58 02/29/24 09:41 02/29/24 10:58 02/29/24 12:24 02/29/24 12:24 Oxygen Delivery Method Room Air Weight: 196 lb 3.382 oz Body Mass Index (BMI) 29.7 Intake & Output: Intake and Output for Last 24 Hours 02/27/24 02/28/24 02/29/24 23:59 23:59 23:59 Intake Total 0 / 0 1993.75 / 1992.75 510 / 510 Output Total 3375 / 3375 350 / 350 Balance 0 / 0 -1381.25 / -1381.25 160 / 160 Lab / Micro Data 02/29/24 06:35 02/29/24 06:35 Labs: Laboratory Results - last 24 hr 02/27/24 20:38: Diff Path Review Reviewed 02/28/24 05:39: Hepatitis A IgM Ab Negative, Hep Bs Antigen Negative, Hep B Core IgM Ab Negative, Hepatitis C Ab (EIA) Non Reactive, Hep C Ab Comment Comment 02/29/24 06:35: WBC 7.2, RBC 3.22 L, Hgb 7.6 L, Hct 24.8 L, MCV 77.0 L, MCH 23.6 L, MCHC 30.6 L, RDW Std Deviation 58.7 H, RDW Coeff of Simona 21.3 H, Plt Count 245, MPV 9.5, Immature Gran % (Auto) 0.400, Neut % (Auto) 42.0 L, Lymph % (Auto) 32.7, [place] % (Auto) 21.7 H, Eos % (Auto) 2.1, Baso % (Auto) 1.1 H, Absolute Neuts (auto) 3.0, Absolute Lymphs (auto) 2.35, Nucleated RBC % 0.3, Differential Comment SCANNED, Platelet Estimate ADEQUATE, Hypochromasia 3+, Anisocytosis 2+, Target Cells 2+, Bite Cells RARE, Acanthocytes (Spur) 1+, Schistocytes 1+, Sodium 137, Potassium 3.9, Chloride 105, Carbon Dioxide 26.0, Anion Gap 6, BUN 11, Creatinine 0.66, Estim Creat Clear Calc 58.92, Est GFR (MDRD) Af Amer 108, Est GFR (MDRD) Non-Af 90, BUN/Creatinine Ratio 16.6, Glucose 99, Calcium 8.5, T otal Bilirubin 5.60 H, AST 19, ALT 12 L, Alkaline Phosphatase 92, Total Protein 4.5 L, Albumin 2.7 L, Globulin 1.8 L, Albumin/Globulin Ratio 1.5 02/29/24 08:38: PT 20.2 H, INR 1.7 Micro: Microbiology 02/27/24 21:35 Stool Stool Occult Blood (DIANA) - Final Occult Blood Positive Physical Exam Const alert, oriented x3 and no apparent distress Constitutional Narrative: frail, pale and jaundiced. General Appearance: cooperative and well developed HEENT normocephalic and head/scalp atraumatic Eyes PERRL Neck no lymphadenopathy, supple and no JVD Lymph Lymphatic: no lymphadenopathy noted and no lymphedema noted Resp normal respiratory effort, normal air movement and clear to auscultation bilaterally Cardio regular rate, regular rhythm, S1 normal heart sound, S2 normal heart sound and no murmurs GI normal to inspection, nondistended, normoactive bowel sounds, soft to palpation, non-tender and non-distended Extremity normal capillary refill Extremity Narrative: bilateral lower extremity pitting edema 2+, with mild erythema and papular rash on the everett of RLE. Nontender to palpationas under extremity Skin General Skin Exam: no breakdown Wound Narrative: 4+ lower extremity edema with erythema bilaterally on lower extremities Neuro CN's II-XII intact bilaterally, no focal motor deficits, no sensory deficits noted and deep tendon reflexes 2+ bilaterally Motor Exam: strength 5/5 throughout and general weakness Psych thought process normal, cooperative and affect normal Appearance: appropriate Assessment & Plan Assessment/Plan (1) Elevated bilirubin: (2) Anemia: PLAN: Plan #Acute on chronic anemia * Etiology is unclear. Baseline hemoglobin from 11/17/2023 was 9.7. Hemoglobin was down to 6.8 on admission and after transfusion of 1 unit of packed red blood cells. Hb is 7.6 today. * eliquis on hold * consult GI. ON IV pantoprazole 40mg bid. * Iron profile showed iron level of 109 with iron saturation of 22.4 and ferritin level of 15. TIBC is elevated at 486. She is therefore not iron deficient though her level of iron stores are low at 15 of ferritin. * she had EGD which showed normal esophagus, with nonbleeding gastric ulcers with no stigmata of bleeding and no gross lesions in the first portion of the duodenum. * per gastroenterology, she may need colonoscopy and capsule endoscopy also * * #Hyperbilirubinemia * Total bilirubin today is slightly further up to 5.6. Direct bilirubin level is elevated at 1.16. * AST and ALT as well as ALP are within normal limits though. 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 * GI concerned about possible hemolytic anemia vs Gilbert syndrome vs Crigler Sirisha syndrome type II vs Celiac disease * autoimmune labs ordered by GI. WIll order Olvin test also and LDH as well as Olvin test. * I also spoke to the blood bank for peripheral smear. [facility] blood bank, the slides have been sent to the pathologist for evaluation. * #Acute on chronic Heart failure preserved ejection fraction * BNP is elevated at over 600. * on IV lasix 40mg bid. * 2D echo from July 19, 2023 showed EF of 55% with no regional wall motion abnormality seen and moderately dilated right ventricle with mild to moderate global right ventricular systolic dysfunction and 3+ tricuspid valve insufficiency with pulmonary artery systolic pressure of 60 mmHg. * Monitor intake and output. Fluid restriction to 1500 cc daily. * Also on metoprolol and spironolactone. * #Probable cellulitis of her RLE * she does have some erythema of her RLE. However, it did improve with wrapping of her LEs * she says she has been on antibiotics for it on outpatient basis * wbc is not elevated * on PO doxycycline. WIll continue * #Hypokalemia: Resolved #History of atrial fibrillation: On metoprolol. Eliquis held due to anemia and positive FOBT and supratherapeutic INR. #History of PFO versus ASD with intra-atrial shunt and mitral regurgitation * Echo findings as above. Follow-up with cardiology on outpatient basis. 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 Echo findings as above. #DVT prophylaxis: Not indicated as INR is therapeutic. INR is down to 1.5 today CODE status: DNRCCA no intubation. * Charges/Coding Visit Charges Inpatient E&M: 98478 [facility] Hosp L3
[2024-02-29 13:29] LABS: Bilirubin, Direct 1.16 mg/dL (0.00-0.30)
[2024-02-29 14:47] LABS: LDH 181 U/L (84-246)
[2024-02-29] MEDS: Senna/Docusate Sodium 1 Tablet 2 TABLET PO (18:56)
[2024-02-29] MEDS: Electrolyte Solution/Peg's 4000 ML PO (21:06)
[2024-02-29] MEDS: Doxycycline 100 MG CAPSULE PO (21:57)
[2024-02-29] MEDS: 0.9% Saline Lock 10 ML Syringe IV (21:59)
[2024-03-01] VITALS (13 sets, daily range): BP systolic 94–129; BP diastolic 38–90; PULSE 70–95; RESP 14–18; TEMP 36.1–36.8; O2SAT 97–100
--- NOTE | 2024-03-01 05:55 | EKG12_ITS ---
Test Reason : AM EKG Blood Pressure : / mmHG Vent. Rate : 085 BPM Atrial Rate : 000 BPM P-R Int : 000 ms QRS Dur : 084 ms QT Int : 380 ms P-R-T Axes : 000 109 076 degrees QTc Int : 452 ms Atrial fibrillation Rightward axis Abnormal ECG Confirmed by NAHID CAIN, MAURO ([id number]), clinical editor LEONELA ELMORE ([id number]) on 03/02/2024 11:54:05 AM Referred By: ALICIA Confirmed By:MAURO WHITFIELD MD
[2024-03-01 06:29] LABS: Absolute Lymphocyte Count 2.23 X10^3/uL (0.83-4.51); Absolute Neutrophil Count 7.1 X10^3/uL (2.0-7.7); Basophil% 0.9 % (0-1); Eosinophil# 0.17 X10^3/uL; Eosinophils% 1.4 % (0-5); Hematocrit 28.6 % (37-47); Hemoglobin 8.9 g/dL (12.0-15.0); Lymphocyte # 2.23 X10^3/ul (0.83-4.51); Mean Corp Hgb Conc 31.1 g/dL (32-36); Mean Corpuscular Hgb 23.9 pg (27.0-32.0); Mean Corpuscular Volume 76.9 fL (81-99); Mean Platelet Vol. 10.1 fl (6.2-12.0); Monocyte# 2.13 X10^3/uL; Monocyte% 18.1 % (0-10); NRBC Flagged by Analyzer 0 % (0-5); Neutrophil # 7.06 X10^3/uL (2.7-7.7); POSITIVE DIFFERENTIAL YES; POSITIVE MORPHOLOGY YES; Platelet Count 314 K/mm3 (150-450); RBC Distribution Width CV 21.9 % (11.6-14.6); RBC Distribution Width SD 59.1 fl (35.1-43.9); Red Blood Count 3.72 M/mm3 (4.2-5.4); White Blood Count 11.8 K/mm3 (4.4-11.0)
[2024-03-01 06:31] LABS: International Normalized Ratio 1.5; Partial Thromboplast Time 33.4 Seconds (24.1-36.2); Prothrombin Time (Protime)PT. 18.1 SECONDS (11.7-14.9)
[2024-03-01 06:33] LABS: Differential Indicated SCAN CRITERIA MET
[2024-03-01 06:56] LABS: ALB/GLOB Ratio 1.5 RATIO (0.9-2.4); AST(SGOT) 20 U/L (15-37); Alanine Aminotransfer ALT/SGPT 13 U/L (13-56); Albumin, Serum 3.3 g/dL (3.2-5.0); Alkaline Phosphatase 129 U/L (45-117); Anion Gap 7 (5-15); BUN 11 mg/dL (7-18); BUN/Creat Ratio 15.4 RATIO (10-20); Calcium,Total 8.6 mg/dL (8.5-10.1); Chloride 102 mmol/L (98-107); Creatinine, Serum 0.71 mg/dL (0.55-1.02); EST Glomerular Filtration Rate 83 mL/min (>60); Est Glom Filt Rate - Afr Amer 100 mL/min (>60); Estimated Creatinine Clearance 58.92 ml/min; Globulin 2.2 g/dL (2.2-4.2); Glucose 126 mg/dL (74-106); Potassium 3.6 mmol/L (3.5-5.1); Protein, Total 5.5 g/dL (6.4-8.2); Sodium Level 136 mmol/L (136-145)
[2024-03-01] MEDS: Furosemide 40 MG/4 ML Vial IV (08:24)
[2024-03-01] MEDS: 0.9% Saline Lock 10 ML Syringe IV ×2 (08:24→21:31)
[2024-03-01] MEDS: Pantoprazole Sodium 40 MG in 0.9% Normal Saline (100mL MB+) 100 ML 330 MG IV ×2 (08:32→21:28)
--- NOTE | 2024-03-01 12:04 | PN_ITS ---
Subjective Subjective Patient seen and examined. She had no active complaints. SHe is due for colonoscopy today. Her Hb today is 8.9. Total bilirubin has trended downwards to 4.8 today. Review of systems is otherwise negative. Objective Data Objective Data Vital Signs: Vital Signs Temp Pulse Resp BP Pulse Ox O2 Del Method 97.7 F L 80 14 115/56 L 99 Room Air 03/01/24 07:46 03/01/24 07:46 03/01/24 07:46 03/01/24 07:46 03/01/24 08:53 03/01/24 08:53 Oxygen Delivery Method Room Air Weight: 196 lb 3.382 oz Body Mass Index (BMI) 29.7 Intake & Output: Intake and Output for Last 24 Hours 02/28/24 02/29/24 03/01/24 23:59 23:59 23:59 Intake Total 75 / 1620 / 1620 110 / 110 Output Total 3375 / 3375 2350 / 2350 5 / 5 Balance -1381.25 / -1381.25 -730 / -730 105 / 105 Lab / Micro Data 03/01/24 06:04 03/01/24 06:04 Labs: Laboratory Results - last 24 hr 02/29/24 06:35: Direct Bilirubin 1.16 H 02/29/24 14:16: Lactate Dehydrogenase 181, Direct Antiglob Test NEG w/POLYSPECIFIC 03/01/24 06:04: WBC 11.8 H, RBC 3.72 L, Hgb 8.9 L, Hct 28.6 L, MCV 76.9 L, MCH 23.9 L, MCHC 31.1 L, RDW Std Deviation 59.1 H, RDW Coeff of Simona 21.9 H, Plt Count 314, MPV 10.1, Immature Gran % (Auto) 0.600, Neut % (Auto) 60.0, Lymph % (Auto) 19.0, [place] % (Auto) 18.1 H, Eos % (Auto) 1.4, Baso % (Auto) 0.9, Absolute Neuts (auto) 7.1, Absolute Lymphs (auto) 2.23, Nucleated RBC % 0, Diff Path Review September, PT 18.1 H, INR 1.5, APTT 33.4, Sodium 136, Potassium 3.6, Chloride 102, Carbon Dioxide 27.0, Anion Gap 7, BUN 11, Creatinine 0.71, Estim Creat Clear Calc 58.92, Est GFR (MDRD) Af Amer 100, Est GFR (MDRD) Non-Af 83, BUN/Creatinine Ratio 15.4, Glucose 126 H, Calcium 8.6, Total Bilirubin 4.80 H, AST 20, ALT 13, Alkaline Phosphatase 129 H, Total Protein 5.5 L, Albumin 3.3, Globulin 2.2, Albumin/Globulin Ratio 1.5 Micro: Microbiology 02/27/24 21:35 Stool Stool Occult Blood (DIANA) - Final Occult Blood Positive Radiography Diagnostic Testing: Radiology Impression Venous Doppler Study 02/28/24 13:12 Interpretation Summary Deep veins of the lower extremities are bilaterally patent and compressible segmentally. There is no evidence of deep vein thrombosis on either side. Valvular competence appears intact within the proximal deep venous systems bilaterally. The great saphenous veins appear bilaterally patent and compressible segmentally. The peroneal veins were not visualized on either side due to the presence of bandages. Ordering Physician: Nelsy Garcia Referring Physician: Blue Lambert Performed By: Cecilia Dorantes, RAMANDEEP, RVT Physical Exam Const alert and oriented x3 Constitutional Narrative: frail, pale and jaundiced. General Appearance: cooperative HEENT normocephalic, head/scalp atraumatic and moist oral mucous membranes Eyes PERRL Neck no lymphadenopathy, supple and no JVD Lymph Lymphatic: no lymphadenopathy noted and no lymphedema noted Resp normal respiratory effort, normal air movement and clear to auscultation bilaterally Cardio regular rate, regular rhythm, S1 normal heart sound, S2 normal heart sound and no murmurs Rhythm: abnormal rhythm irregularly irregular GI normal to inspection, nondistended, normoactive bowel sounds, soft to palpation, non-tender and non-distended Extremity normal capillary refill Extremity Narrative: bilateral lower extremity pitting edema 2+, with mild erythema and papular rash on the everett of RLE. Nontender to palpationas under extremity Skin Skin Narrative: jaundiced, but looks less yelow today. General Skin Exam: no breakdown Wound Narrative: 4+ lower extremity edema with erythema bilaterally on lower extremities Neuro CN's II-XII intact bilaterally, no focal motor deficits, no sensory deficits noted and deep tendon reflexes 2+ bilaterally Motor Exam: strength 5/5 throughout and general weakness Psych thought process normal, cooperative and affect normal Appearance: appropriate Assessment & Plan Assessment/Plan (1) Elevated bilirubin: (2) Anemia: PLAN: Plan #Acute on chronic anemia * Etiology is unclear. Baseline hemoglobin from 11/17/2023 was 9.7. Hemoglobin was down to 6.8 on admission and after transfusion of 1 unit of packed red blood cells. Hb is 8.9. * eliquis on hold * GI on board. ON IV pantoprazole 40mg bid. * Iron profile showed iron level of 109 with iron saturation of 22.4 and ferritin level of 15. TIBC is elevated at 486. She is therefore not iron deficient though her level of iron stores are low at 15 of ferritin. * she had EGD which showed normal esophagus, with nonbleeding gastric ulcers with no stigmata of bleeding and no gross lesions in the first portion of the duodenum. * per gastroenterology, she may need colonoscopy and capsule endoscopy also * for colonoscopy today. * #Hyperbilirubinemia * total bilirubin trended down from 5.6 to 4.8 today. * AST and ALT as well as ALP are within normal limits though. 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 * GI concerned about possible hemolytic anemia vs Gilbert syndrome vs Crigler Sirisha syndrome type II vs Celiac disease * autoimmune labs ordered by GI. Olvin test negative. * I also spoke to the blood bank for peripheral smear. [facility] blood bank, the slides have been sent to the pathologist for evaluation. Pathologist evaluation of slides pending * #Acute on chronic Heart failure preserved ejection fraction * BNP was elevated at over 600. * on IV lasix 40mg bid. * 2D echo from July 19, 2023 showed EF of 55% with no regional wall motion abnormality seen and moderately dilated right ventricle with mild to moderate global right ventricular systolic dysfunction and 3+ tricuspid valve insufficiency with pulmonary artery systolic pressure of 60 mmHg. * Monitor intake and output. Fluid restriction to 1500 cc daily. * Also on metoprolol and spironolactone. * #Probable cellulitis of her RLE * she does have some erythema of her RLE. However, it did improve with wrapping of her LEs * she says she has been on antibiotics for it on outpatient basis * erythema of LE is now bilateral * will switch to IV doxycycline to treat a presumptive cellulitis. * #Hypokalemia: Resolved #History of atrial fibrillation: On metoprolol. Eliquis held due to anemia and positive FOBT and supratherapeutic INR. #History of PFO versus ASD with intra-atrial shunt and mitral regurgitation * Echo findings as above. Follow-up with cardiology on outpatient basis. 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 Echo findings as above. #DVT prophylaxis: Not indicated as INR is therapeutic. INR is down to 1.5 today CODE status: DNRCCA no intubation. * Charges/Coding Visit Charges Inpatient E&M: 25476 [facility] Hosp L2
--- NOTE | 2024-03-01 12:49 | PRE.ANES_ITS ---
ASA Classification* ASA Classification ASA Classification: 3 and E Assessment & Plan Anesthesia* Anesthesia Assessment Anesthesia Assessment: Discussed sedation and/or anesthesia options, risks, benefits, and alternatives with patient/parents/legal guardian/POA. Questions invited. The patient/parents/legal guardian/POA seems to understand and agrees to proceed with anesthesia plan. Reviewed the physical assessment, medical history, allergy history and patient home medications list prior to surgery/procedure/anesthetic and documented any changes. Performed airway and anesthesia risk assessments. Anesthesia Type Anesthesia Type: MAC (see written pre anesthesia record for full assessment) Anesthesia Focused Assessment* Temperature: 97.8 F Pulse Rate: 95 Blood Pressure: 119/64 Respiratory Rate: 16 Pulse Ox: 98 Airway Assessment Mouth opens: >3 cm Mallampati Score: II Focused Labs Anesthesia Preop lab: CBC WBC 11.8 K/mm3 (4.4-11.0) H 03/01/24 06:04 RBC 3.72 M/mm3 (4.2-5.4) L 03/01/24 06:04 Hgb 8.9 g/dL (12.0-15.0) L 03/01/24 06:04 Hct 28.6 % (37-47) L 03/01/24 06:04 Plt Count 314 K/mm3 (150-450) 03/01/24 06:04 CHEMISTRY Potassium 3.6 mmol/L (3.5-5.1) 03/01/24 06:04 Sodium 136 mmol/L (136-145) 03/01/24 06:04 Magnesium 2.2 mg/dL (1.6-2.6) 02/27/24 11:36 Phosphorus 3.3 mg/dL (2.5-4.9) 12/17/19 08:16 BUN 11 mg/dL (7-18) 03/01/24 06:04 Creatinine 0.71 mg/dL (0.55-1.02) 03/01/24 06:04 Glucose 126 mg/dL (74-106) H 03/01/24 06:04 TSH 4.700 uIU/mL (0.358-3.740) H 02/27/24 11:36 COAG PT 18.1 SECONDS (11.7-14.9) H 03/01/24 06:04 Pre-Assessment Diagnosis/Proposed Procedure Planned Operative Procedure(s): EGD Anesthesia History Anesthesia History - independent video producer: Anesthesia History - independent video producer Hx Hospitalization Any Problems With Anesthesia No 02/28/24 12:59 Cholinesterase deficiency No 02/28/24 12:59 You/Your Family Experience No 02/28/24 12:59 fever (hyperthermia) with Relationship Recent Exposure to Contagious No 02/28/24 12:59 Disease Does patient have nerve No 02/28/24 12:59 stimulator Patient instructed to have device shut off --Does patient have Pacemaker No 02/28/24 12:54 or ICD? When Was Last Pacemaker Check QUESTION #4 FULL TEXT: You/Your Family Experience fever (hyperthermia) with Anesthesia Last Oral Intake Last Oral intake: Last Oral Intake NPO since 00:00 02/28/24 12:54 Meds taken in AM with sips of Yes 02/28/24 12:54 water? Meds patient instructed to see mar 02/28/24 12:54 take am of surgery PONV PONV - independent video producer: PONV - independent video producer Female HX of Motion Sickness HX of N/V After Surgery Non-Smoker Duration of Surgery greater than 60 minutes Number of Risk Factors PONV Score Height & Weight Height & Weight: Anesthesia: Height & Weight Height 5 ft 8.11 in 02/28/24 12:54 Weight: 89 kg 02/28/24 12:54 Body Mass Index (BMI) 29.7 02/28/24 12:54 Respiratory Assessment Respiratory Assessment - independent video producer: Respiratory Tract Infection Hx - independent video producer Hx Respiratory Tract Infection No 02/28/24 12:59 STOP Sleep Apnea STOP Sleep Apnea - independent video producer: STOP Sleep Apnea - independent video producer Hx Hypertension Yes: meds 02/28/24 00:47 Hx Sleep Apnea No 02/28/24 00:47 CPAP BIPAP Do you snore loudly (louder No 02/28/24 00:47 than talking or can be heard Do you often feel tired/ No 02/28/24 00:47 fatigued/ sleepy during daytime? Has anyone observed you stop No 02/28/24 00:47 breathing during sleep? STOP Results Negative 02/28/24 14:55 QUESTION #5 FULL TEXT : Do you snore loudly (louder than talking or can be heard through closed doors)? Tobacco Use History Tobacco Use History - independent video producer: Tobacco Use History - independent video producer Tobacco Use Smoking Status Never smoker 02/28/24 00:47 Hx Tobacco Use No 02/28/24 00:47 Years Smoking Packs Smoked per Day Smoking Cessation Date was within the last 15 years Hx Smoking Cessation Date Hx Smoking Cessation Counseling Hematologic Medial History Hematologic Hx - independent video producer: Hematologic Medical Hx - shipper and receiving Hx of Blood Transfusion No 02/28/24 00:47 Hx of Transfusion in last 3 No 02/28/24 00:47 Months Date of Last Transfusion (if within last 3 months) Ever experience any problems No 02/28/24 00:47 with transfusion(s)? Specify any problems Hx of Preganancy in last 3 No 02/28/24 00:47 Months Nurse Filling Out Transfusion JNORRIS 02/28/24 00:47 & Questions: Date: 02/28/24 10 00:47 Time: 01:00 02/28/24 00:47 Patient unable to answer at this time (ie. confused, unrespo /Reproduction History /Reproductive History - independent video producer: /Reproductive Hx- independent video producer Hx Now No 02/28/24 12:59 Gestational Age (in weeks): EDC: Hx Hx Para Hx Section SAB Active Medications Active Medications: Current Medications Generic Name Dose Route Start Last Admin Trade Name Freq PRN Reason Stop Dose Admin Calcium/Vitamin D 1 tablet 02/28/24 08:00 03/01/24 08:02 Calcium Carb/Vitamin D 1 Tablet Tablet PO Not Given DAILYCM [facility] Cholecalciferol 125 mcg 02/29/24 10:00 02/29/24 09:45 Cholecalciferol (Vit D3) 125 Mcg Capsule (5,000 Units) PO 125 mcg QODAY SARTHAK Administration Cyanocobalamin 1,000 mcg 02/29/24 10:00 02/29/24 09:45 Cyanocobalamin 500 Mcg Tablet PO 1,000 mcg QODAY SARTHAK Administration Furosemide 40 mg 02/28/24 18:00 03/01/24 08:24 Furosemide 40 Mg/4 Ml Vial IV 40 mg BIDLX SARTHAK Administration Protocol Pantoprazole Sodium 40 mg/ 110 mls @ 330 mls/hr 02/28/24 10:00 03/01/24 09:41 Sodium Chloride IV Infused Q12 SARTHAK Infusion Sodium Chloride 500 mls @ 15 mls/hr 02/28/24 01:50 IV PRN PRN Blood Transfusion Lactated Ringer's 1,000 mls @ 15 mls/hr 02/28/24 13:00 03/01/24 09:41 IV Not Given .Q48H SARTHAK Lactated Ringer's 1,000 mls @ 15 mls/hr 03/01/24 12:30 IV .Q48H [facility] Doxycycline Hyclate 100 mg/ 260 mls @ 250 mls/hr 03/01/24 22:00 Dextrose IV Q12 [facility] Metoprolol Succinate 100 mg 02/28/24 10:00 03/01/24 08:03 Metoprolol(Xl)Succ 100 Mg Tablet PO Not Given DAILY [facility] Protocol Multivitamins/Minerals 1 cap 02/28/24 10:00 03/01/24 08:02 Multivitamin (Healthy Eyes) Capsule PO Not Given DAILY [facility] Ondansetron HCl 4 mg 02/28/24 00:44 Ondansetron 4 Mg/2 Ml Vial IV Q8H PRN PRN NAUSEA/VOMITING Senna/Docusate Sodium 2 tablet 02/29/24 12:36 02/29/24 18:56 Senna/Docusate Sodium 1 Tablet PO 2 tablet DAILY PRN PRN Administration CONSTIPATION Sodium Chloride 10 - 40 ml 02/28/24 01:50 03/01/24 08:24 0.9% Saline Lock 10 Ml Syringe IV 10 ml UD PRN Administration SALINE FLUSH Spironolactone 25 mg 02/28/24 10:00 03/01/24 08:02 Spironolactone 25 Mg Tablet PO Not Given DAILY [facility] Protocol [facility] Medical History Acquired atrial septal defect (ASD) Multiple thyroid nodules Osteopenia Normocytic anemia Pericardial effusion Non-rheumatic tricuspid valve insufficiency Non-rheumatic mitral regurgitation Pseudophakia Essential hypertension Atrial fibrillation Bee sting reaction Bronchitis Fatigue Cystic thyroid nodule Hemorrhoid Murmur, heart Home Medications ?Medication ?Instructions ?Recorded ?Last Taken ?Type apixaban 5 mg tablet (Eliquis) 5 mg PO BID 11/13/20 12/09/20 History calcium 500 mg-vitamin D3 500 1 tab PO DAILY 11/13/20 Unknown History unit-vitamin K 40 mcg chewable tablet (Viactiv) metoprolol succinate 100 mg 100 mg PO DAILY 11/27/20 12/09/20 History tablet,extended release 24 hr vitamins A,C,K-bman-xsumch 4,296 1 cap PO DAILY 07/06/22 Unknown History mcg-226 mg-90 mg capsule (PreserVision AREDS) spironolactone 25 mg tablet 25 mg PO DAILY #90 tabs 08/01/23 Unknown Rx furosemide 40 mg tablet (Lasix) 40 mg PO DAILY #90 tabs 12/09/23 Unknown Rx cholecalciferol (vitamin D3) 125 125 mcg PO Q OTHER DAY 12/23/23 Unknown History mcg (5,000 unit) tablet cyanocobalamin (vitamin B-12) 1,000 mcg PO Q OTHER DAY 12/23/23 Unknown History 1,000 mcg tablet doxycycline hyclate 100 mg capsule 100 mg PO BID 02/27/24 Unknown History Allergy/AdvReac Type Severity Reaction Status Date / Time amoxicillin (From Trimox) Allergy Severe throat Verified 02/27/24 19:48 swelling lisinopril Allergy Severe Angioedema Verified 02/27/24 19:48 amlodipine AdvReac Mild swelling Verified 02/27/24 19:48 ciprofloxacin (From Cipro) AdvReac GI upset Verified 02/27/24 19:48 diphenhydramine (From AdvReac jittery Verified 02/27/24 19:48 Benadryl) Family History Mother Diabetes Father Myocardial infarction CAD (coronary artery disease) Surgical History History of cholecystectomy History of tubal ligation History of tonsillectomy S/P colonoscopy Social History current occupational status: retired Smoking Status: Never smoker alcohol intake: current details: glass wine daily substance use type: does not use caffeine: Yes Type: coffee Number of servings: 1 Review of Systems (Anesthesia) ROS Narrative System reviewed and no additional complaints, except as documented.
--- NOTE | 2024-03-01 13:13 | EX.PCM.PN.GI ---
Subjective Subjective Patient is doing well. She prep for colonoscopy last night. There were no problems noted at night. Objective Data Objective Data Vital Signs: Vital Signs Temp Pulse Resp BP Pulse Ox O2 Del Method 97.8 F 95 16 119/64 98 Room Air 03/01/24 12:49 03/01/24 12:49 03/01/24 12:49 03/01/24 12:49 03/01/24 12:49 03/01/24 12:08 Oxygen Delivery Method Room Air Weight: 196 lb 3.382 oz Body Mass Index (BMI) 29.7 Intake & Output: Intake and Output for Last 24 Hours 02/28/24 02/29/24 03/01/24 23:59 23:59 23:59 Intake Total 1992.75 / 1992.75 1620 / 1620 110 / 110 Output Total 3375 / 3375 2350 / 2350 5 / Balance -1381.25 / -1381.25 -730 / -730 105 / 105 Lab / Micro Data 03/01/24 06:04 03/01/24 06:04 Labs: Laboratory Results - last 24 hr 02/29/24 06:35: Direct Bilirubin 1.16 H 02/29/24 14:16: Lactate Dehydrogenase 181, Direct Antiglob Test NEG w/POLYSPECIFIC 03/01/24 06:04: WBC 11.8 H, RBC 3.72 L, Hgb 8.9 L, Hct 28.6 L, MCV 76.9 L, MCH 23.9 L, MCHC 31.1 L, RDW Std Deviation 59.1 H, RDW Coeff of [place] 21.9 H, Plt Count 314, MPV 10.1, Immature Gran % (Auto) 0.600, Neut % (Auto) 60.0, Lymph % (Auto) 19.0, [place] % (Auto) 18.1 H, Eos % (Auto) 1.4, Baso % (Auto) 0.9, Absolute Neuts (auto) 7.1, Absolute Lymphs (auto) 2.23, Nucleated RBC % 0, Diff Path Review September, PT 18.1 H, INR 1.5, APTT 33.4, Sodium 136, Potassium 3.6, Chloride 102, Carbon Dioxide 27.0, Anion Gap 7, BUN 11, Creatinine 0.71, Estim Creat Clear Calc 58.92, Est GFR (MDRD) Af Amer 100, Est GFR (MDRD) Non-Af 83, BUN/Creatinine Ratio 15.4, Glucose 126 H, Calcium 8.6, Total Bilirubin 4.80 H, AST 20, ALT 13, Alkaline Phosphatase 129 H, Total Protein 5.5 L, Albumin 3.3, Globulin 2.2, Albumin/Globulin Ratio 1.5 Micro: Microbiology 02/27/24 21:35 Stool Stool Occult Blood (DIANA) - Final Occult Blood Positive Radiography Diagnostic Testing: Radiology Impression Venous Doppler Study 02/28/24 13:12 Interpretation Summary Deep veins of the lower extremities are bilaterally patent and compressible segmentally. There is no evidence of deep vein thrombosis on either side. Valvular competence appears intact within the proximal deep venous systems bilaterally. The great saphenous veins appear bilaterally patent and compressible segmentally. The peroneal veins were not visualized on either side due to the presence of bandages. Ordering Physician: Nelsy Garcia Referring Physician: Blue Lambert Performed By: Cecilia Dorantes, RAMANDEEP, RVT Physical Exam Const alert and oriented x3 Constitutional Narrative: frail, pale and jaundiced. General Appearance: cooperative HEENT normocephalic, head/scalp atraumatic and moist oral mucous membranes Eyes PERRL Neck no lymphadenopathy, supple and no JVD Lymph Lymphatic: no lymphadenopathy noted and no lymphedema noted Resp normal respiratory effort, normal air movement and clear to auscultation bilaterally Cardio regular rate, regular rhythm, S1 normal heart sound, S2 normal heart sound and no murmurs Rhythm: abnormal rhythm irregularly irregular GI normal to inspection, nondistended, normoactive bowel sounds, soft to palpation, non-tender and non-distended Extremity normal capillary refill Extremity Narrative: bilateral lower extremity pitting edema 2+, with mild erythema and papular rash on the everett of RLE. Nontender to palpationas under extremity Skin Skin Narrative: jaundiced, but looks less yelow today. General Skin Exam: no breakdown Wound Narrative: 4+ lower extremity edema with erythema bilaterally on lower extremities Neuro CN's II-XII intact bilaterally, no focal motor deficits, no sensory deficits noted and deep tendon reflexes 2+ bilaterally Motor Exam: strength 5/5 throughout and general weakness Psych thought process normal, cooperative and affect normal Appearance: appropriate Assessment & Plan Assessment/Plan (1) Elevated bilirubin: PLAN: Indirect hyperbilirubinemia. Concerned about autoimmune disease affecting the hemoglobin molecule. No signs of chronic liver disease at this time. Await autoimmune hemolysis workup. (2) Anemia: PLAN: She had normal upper endoscopy. She will undergo colonoscopy. She was explained alternatives, risk, benefits including not withstanding bleeding, infection, sepsis, perforation, need for return to . She will have an ASA of 3. Charges/Coding Visit Charges Inpatient E&M: 47925 Subs Hosp L2
--- NOTE | 2024-03-01 14:00 | OP.COLON_ITS ---
Patient Name: Denia Banda Procedure Date: 03/01/2024 1:25 PM Date of : 1935 Age: 88 Procedure: Colonoscopy Indications: Iron deficiency anemia Providers: Dane Werner DO Medicines: Monitored Anesthesia Care Patient Profile: This is an 88 year old female. Refer to note in patient chart for documentation of history and physical. Last Colonoscopy: date unknown. Unable to locate last colonoscopy report. Complications: No immediate complications. Procedure: Pre-Anesthesia Assessment: - Prior to the procedure, a History and Physical was performed, and patient medications and allergies were reviewed. The patient is competent. The risks and benefits of the procedure and the sedation options and risks were discussed with the patient. All questions were answered and informed consent was obtained. Patient identification and proposed procedure were verified by the physician in the pre-procedure area. Mental Status Examination: alert and oriented. Airway Examination: normal oropharyngeal airway and neck mobility. Respiratory Examination: clear to auscultation. CV Examination: normal. ASA Grade Assessment: II - A patient with mild systemic disease. After reviewing the risks and benefits, the patient was deemed in satisfactory condition to undergo the procedure. The anesthesia plan was to use monitored anesthesia care (MAC). Immediately prior to administration of medications, the patient was re-assessed for adequacy to receive sedatives. The heart rate, respiratory rate, oxygen saturations, blood pressure, adequacy of pulmonary ventilation, and response to care were monitored throughout the procedure. The physical status of the patient was re-assessed after the procedure. After I obtained informed consent, the scope was passed under direct vision. Throughout the procedure, the patient's blood pressure, pulse, and oxygen saturations were monitored continuously. The Colonoscope was introduced through the anus and advanced to the cecum, identified by the ileocecal valve. The colonoscopy was performed without difficulty. The patient tolerated the procedure well. The quality of the bowel preparation was fair. The ileocecal valve and the rectum were photographed. Scope In: 1:48:02 PM Scope Withdrawal Time 0 hours 2 minutes 30 seconds Scope Out: 1:56:44 PM Total Procedure Duration Time 0 hours 8 minutes 42 seconds Findings: The perianal and digital rectal examinations were normal. Multiple small and large-mouthed diverticula were found in the recto-sigmoid colon, sigmoid colon, descending colon and splenic flexure. Stool was found at the splenic flexure, in the transverse colon, at the hepatic flexure, in the ascending colon and in the cecum. Impression: - Preparation of the colon was fair. - Diverticulosis in the recto-sigmoid colon, in the sigmoid colon, in the descending colon and at the splenic flexure. - Stool at the splenic flexure, in the transverse colon, at the hepatic flexure, in the ascending colon and in the cecum. - No specimens collected. Recommendation: - [facility]. - Resume regular diet. - Continue present medications. - No repeat colonoscopy due to age. Procedure Code(s): --- Professional --- 92433, Colonoscopy, flexible; diagnostic, including collection of specimen(s) by brushing or washing, when performed (separate procedure) CPT copyright 2021 [employer]. All rights reserved. The codes documented in this report are preliminary and upon store merchandiser review may be revised to meet current compliance requirements. Dane Werner DO 03/01/2024 2:00:01 PM This report has been signed electronically. Number of Addenda: 0 Note Initiated On: 03/01/2024 1:25 PM
--- NOTE | 2024-03-01 14:00 | OP.CCLET_ITS ---
03/01/2024 Blue Lambert [address] [place] [address] Re : Colonoscopy procedure for Denia Banda Dear Dr. Lambert This procedure was performed on February. My impressions and recommendations are as follows: Impressions : - Preparation of the colon was fair. - Diverticulosis in the recto-sigmoid colon, in the sigmoid colon, in the descending colon and at the splenic flexure. - Stool at the splenic flexure, in the transverse colon, at the hepatic flexure, in the ascending colon and in the cecum. - No specimens collected. Recommendations : - [facility] to [facility]. - Resume regular diet. - Continue present medications. - No repeat colonoscopy due to age. My findings are described in the full procedure note, which is enclosed. If I can be of further assistance, please feel free to contact me at . Sincerely, Dane Werner, 03/01/2024 2:00:01 PM This report has been signed electronically.
--- NOTE | 2024-03-01 14:07 | PCM.POST.ANE ---
Anesthesia: Postop Eval I Current Vital Signs Temperature: 97.4 F Pulse Rate: 72 Blood Pressure: 107/53 Respiratory Rate: 16 Pulse Ox: 100 Oxygen Delivery Method: Room Air Assessment Airway patent: Yes Spontaneous unlabored respirations: Yes Mental status: Asleep nausea: No Vomiting: No Anesthesia Complication: No Fluid Hydration Crystalloid volume administer (ml): 700 Total IV fluid infused: 700 Progress Note Anesthesia document: Postop Eval 1 completed: Yes
[2024-03-01] MEDS: Doxycycline 100 MG in Dextrose 5%-Water (250mL Bag) 250 ML 250 MG IV (22:07)
[2024-03-02 03:27] VITALS: BP 125/44; PULSE 95; RESP 18; TEMP 36.1; TEMP 36.4; O2SAT 94
[2024-03-02 06:50] LABS: Absolute Neutrophil Count 3.6 X10^3/uL (2.0-7.7); Basophil# 0.06 X10^3/uL; Basophil% 0.8 % (0-1); Eosinophil# 0.19 X10^3/uL; Eosinophils% 2.5 % (0-5); Hematocrit 25.5 % (37-47); Lymphocyte % 29.2 % (19-41); Mean Corp Hgb Conc 31.4 g/dL (32-36); Mean Corpuscular Hgb 24.3 pg (27.0-32.0); Mean Corpuscular Volume 77.5 fL (81-99); Mean Platelet Vol. 9.8 fl (6.2-12.0); Monocyte# 1.47 X10^3/uL; Monocyte% 19.5 % (0-10); NRBC Flagged by Analyzer 0 % (0-5); Neutrophil # 3.57 X10^3/uL (2.7-7.7); Neutrophil % 47.5 % (47-70); POSITIVE MORPHOLOGY YES; Platelet Count 250 K/mm3 (150-450); RBC Distribution Width CV 22.4 % (11.6-14.6); RBC Distribution Width SD 61.7 fl (35.1-43.9); Red Blood Count 3.29 M/mm3 (4.2-5.4); White Blood Count 7.5 K/mm3 (4.4-11.0)
[2024-03-02 06:58] LABS: Differential Indicated SCAN CRITERIA MET
[2024-03-02 07:30] LABS: ALB/GLOB Ratio 1.3 RATIO (0.9-2.4); AST(SGOT) 15 U/L (15-37); Alanine Aminotransfer ALT/SGPT 14 U/L (13-56); Albumin, Serum 2.8 g/dL (3.2-5.0); Alkaline Phosphatase 110 U/L (45-117); Anion Gap 6 (5-15); BUN 12 mg/dL (7-18); Calcium,Total 8.5 mg/dL (8.5-10.1); Chloride 102 mmol/L (98-107); EST Glomerular Filtration Rate 101 mL/min (>60); Est Glom Filt Rate - Afr Amer 122 mL/min (>60); Estimated Creatinine Clearance 58.92 ml/min; Globulin 2.1 g/dL (2.2-4.2); Glucose 110 mg/dL (74-106); Potassium 3.4 mmol/L (3.5-5.1); Protein, Total 4.9 g/dL (6.4-8.2); Sodium Level 136 mmol/L (136-145)
[2024-03-02 07:47] LABS: Anisocytosis 1+; Hypochromasia 1+
[2024-03-02] MEDS: Pantoprazole Sodium 40 MG in 0.9% Normal Saline (100mL MB+) 100 ML 330 MG IV ×2 (09:34→21:39)
[2024-03-02 09:37] VITALS: BP 122/50; PULSE 99; RESP 18; TEMP 36.8; O2SAT 99
[2024-03-02 09:44] VITALS: PULSE 99
[2024-03-02] MEDS: Metoprolol(XL)Succ 100 MG Tablet PO (09:44)
[2024-03-02] MEDS: Calcium Carb/Vitamin D 1 TABLET Tablet PO (09:44)
[2024-03-02] MEDS: Multivitamin (Healthy Eyes) Capsule 1 CAP PO (09:44)
[2024-03-02] MEDS: Furosemide 40 MG Tablet PO (09:44)
[2024-03-02] MEDS: Cyanocobalamin 500 MCG Tablet 1000 MCG PO (09:44)
[2024-03-02] MEDS: Cholecalciferol (Vit D3) 125 MCG CAPSULE (5,000 UNITS) PO (09:44)
[2024-03-02] MEDS: Spironolactone 25 MG Tablet PO (09:45)
--- NOTE | 2024-03-02 10:05 | PN_ITS ---
Subjective Subjective Patient seen and examined. She had no active complaints. Review of systems was otherwise negative. She had colonoscopy yesterday which showed only diverticulosis. She has remained hemodynamically stable. Objective Data Objective Data Vital Signs: Vital Signs Temp Pulse Resp BP Pulse Ox O2 Del Method 98.2 F 99 18 122/50 H 99 Room Air 03/02/24 09:37 03/02/24 09:44 03/02/24 09:37 03/02/24 09:37 03/02/24 09:37 03/02/24 09:40 Oxygen Delivery Method Room Air Weight: 196 lb 3.382 oz Body Mass Index (BMI) 29.7 Intake & Output: Intake and Output for Last 24 Hours 02/29/24 03/01/24 03/02/24 23:59 23:59 23:59 Intake Total 1620 / 1620 1190 / 1190 Output Total 2350 / 2350 2205 / 2205 Balance -730 / -730 -1015 / -1015 Lab / Micro Data 03/02/24 06:40 03/02/24 06:40 Labs: Laboratory Results - last 24 hr 03/02/24 06:40: WBC 7.5, RBC 3.29 L, Hgb 8.0 L, Hct 25.5 L, MCV 77.5 L, MCH 24.3 L, MCHC 31.4 L, RDW Std Deviation 61.7 H, RDW Coeff of Simona 22.4 H, Plt Count 250, MPV 9.8, Immature Gran % (Auto) 0.500, Neut % (Auto) 47.5, Lymph % (Auto) 29.2, [place] % (Auto) 19.5 H, Eos % (Auto) 2.5, Baso % (Auto) 0.8, Absolute Neuts (auto) 3.6, Absolute Lymphs (auto) 2.20, Nucleated RBC % 0, Hypochromasia 1+, Anisocytosis 1+, Sodium 136, Potassium 3.4 L, Chloride 102, Carbon Dioxide 28.0, Anion Gap 6, BUN 12, Creatinine 0.60, Estim Creat Clear Calc 58.92, Est GFR (MDRD) Af Amer 122, Est GFR (MDRD) Non-Af 101, BUN/Creatinine Ratio 20.0, G lucose 110 H, Calcium 8.5, Total Bilirubin 4.30 H, AST 15, ALT 14, Alkaline Phosphatase 110, Total Protein 4.9 L, Albumin 2.8 L, Globulin 2.1 L, Albumin/Globulin Ratio 1.3 Micro: Microbiology 02/27/24 21:35 Stool Stool Occult Blood (DIANA) - Final Occult Blood Positive Physical Exam Const alert, oriented x3 and no apparent distress Constitutional Narrative: frail, pale and jaundiced. General Appearance: cooperative and well developed HEENT normocephalic, head/scalp atraumatic and moist oral mucous membranes Eyes PERRL Neck no lymphadenopathy, supple and no JVD Lymph Lymphatic: no lymphadenopathy noted and no lymphedema noted Resp normal respiratory effort, normal air movement and clear to auscultation bilaterally Cardio regular rate, regular rhythm, S1 normal heart sound, S2 normal heart sound and no murmurs GI normal to inspection, nondistended, normoactive bowel sounds, soft to palpation, non-tender and non-distended Extremity normal capillary refill Extremity Narrative: both LEs wrapped in a ARNULFO wraps. Skin Skin Narrative: jaundiced, but looks less yelow today. General Skin Exam: no breakdown Neuro CN's II-XII intact bilaterally, no focal motor deficits, no sensory deficits noted and deep tendon reflexes 2+ bilaterally Motor Exam: strength 5/5 throughout and general weakness Psych thought process normal, cooperative and affect normal Appearance: appropriate Assessment & Plan Assessment/Plan (1) Elevated bilirubin: (2) Anemia: PLAN: Plan #Acute on chronic anemia * Etiology is unclear. Baseline hemoglobin from 11/17/2023 was 9.7. Hemoglobin was down to 6.8 on admission and after transfusion of 1 unit of packed red blood cells. Hb is 8.9. * eliquis on hold * GI on board. ON IV pantoprazole 40mg bid. * Iron profile showed iron level of 109 with iron saturation of 22.4 and ferritin level of 15. TIBC is elevated at 486. She is therefore not iron deficient though her level of iron stores are low at 15 of ferritin. * she had EGD which showed normal esophagus, with nonbleeding gastric ulcers with no stigmata of bleeding and no gross lesions in the first portion of the duodenum. * per gastroenterology, she may need colonoscopy and capsule endoscopy also * had colonoscopy which showed only diverticulosis. * peripheral smear showed microcytic anemia. * #Hyperbilirubinemia * bilirubin continues to trend down and is down to 4.3 today. * AST and ALT as well as ALP are within normal limits though. 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 * GI concerned about possible hemolytic anemia vs Gilbert syndrome vs Crigler Sirisha syndrome type II vs Celiac disease * autoimmune labs ordered by GI. Olvin test negative. * peripheral blood smear by pathologist showed microcytic anemia. * #Acute on chronic Heart failure preserved ejection fraction * BNP was elevated at over 600. * on IV lasix 40mg bid; will switch to PO lasix 40mg daily * 2D echo from July 19, 2023 showed EF of 55% with no regional wall motion abnormality seen and moderately dilated right ventricle with mild to moderate global right ventricular systolic dysfunction and 3+ tricuspid valve insufficiency with pulmonary artery systolic pressure of 60 mmHg. * Monitor intake and output. Fluid restriction to 1500 cc daily. * Also on metoprolol and spironolactone; will hold as BP was running low overnight and yesterday. * #Probable cellulitis of her RLE * she does have some erythema of her RLE. However, it did improve with wrapping of her LEs * she says she has been on antibiotics for it on outpatient basis * erythema of LE is now bilateral * on IV doxycycline. * #Hypokalemia: potassium is 3.4 today. Will replace and trend. #History of atrial fibrillation: On metoprolol. Eliquis held due to anemia and positive FOBT and supratherapeutic INR. #History of PFO versus ASD with intra-atrial shunt and mitral regurgitation * Echo findings as above. Follow-up with cardiology on outpatient basis. 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 Echo findings as above. #DVT prophylaxis: SCDs. was not anticoagulated on admission due to supratherapeutic INR. WIll discuss with GI about resuming eliquis. CODE status: DNRCCA no intubation. * Charges/Coding Visit Charges Inpatient E&M: 18563 Subs Hosp L2
[2024-03-02] MEDS: 0.9% Saline Lock 10 ML Syringe IV ×2 (10:32→21:39)
[2024-03-02] MEDS: Doxycycline 100 MG in Dextrose 5%-Water (250mL Bag) 250 ML 250 MG IV ×2 (10:32→22:16)
[2024-03-02 10:42] LABS: International Normalized Ratio 1.5
[2024-03-02 14:09] LABS: Pathologist Review Reviewed
[2024-03-02 15:00] VITALS: BP 121/51; PULSE 79; RESP 18; TEMP 36.6; O2SAT 99
[2024-03-02 21:35] VITALS: BP 113/46; PULSE 71; RESP 18; TEMP 36.8; O2SAT 95
[2024-03-03 03:03] VITALS: BP 120/49; PULSE 84; RESP 18; TEMP 36.9; O2SAT 96
[2024-03-03 07:19] LABS: Absolute Lymphocyte Count 1.96 X10^3/uL (0.83-4.51); Absolute Neutrophil Count 5.9 X10^3/uL (2.0-7.7); Basophil# 0.08 X10^3/uL; Basophil% 0.8 % (0-1); Eosinophil# 0.15 X10^3/uL; Eosinophils% 1.5 % (0-5); Hematocrit 25.4 % (37-47); Hemoglobin 7.9 g/dL (12.0-15.0); Lymphocyte # 1.96 X10^3/ul (0.83-4.51); Lymphocyte % 19.9 % (19-41); Mean Corp Hgb Conc 31.1 g/dL (32-36); Mean Corpuscular Hgb 24.1 pg (27.0-32.0); Mean Corpuscular Volume 77.4 fL (81-99); Mean Platelet Vol. 9.9 fl (6.2-12.0); Monocyte# 1.74 X10^3/uL; Monocyte% 17.6 % (0-10); NRBC Flagged by Analyzer 0 % (0-5); Neutrophil # 5.89 X10^3/uL (2.7-7.7); Neutrophil % 59.7 % (47-70); POSITIVE DIFFERENTIAL YES; POSITIVE MORPHOLOGY YES; Platelet Count 268 K/mm3 (150-450); RBC Distribution Width SD 63.1 fl (35.1-43.9); Red Blood Count 3.28 M/mm3 (4.2-5.4); White Blood Count 9.9 K/mm3 (4.4-11.0)
[2024-03-03 07:27] LABS: Differential Indicated SCAN CRITERIA MET
[2024-03-03 07:31] VITALS: BP 115/61; PULSE 82; RESP 16; TEMP 36.8; O2SAT 95
[2024-03-03 07:33] LABS: ALB/GLOB Ratio 1.4 RATIO (0.9-2.4); AST(SGOT) 12 U/L (15-37); Alanine Aminotransfer ALT/SGPT 13 U/L (13-56); Albumin, Serum 2.9 g/dL (3.2-5.0); Alkaline Phosphatase 103 U/L (45-117); Anion Gap 6 (5-15); BUN 11 mg/dL (7-18); BUN/Creat Ratio 20.1 RATIO (10-20); Calcium,Total 8.6 mg/dL (8.5-10.1); Chloride 102 mmol/L (98-107); Creatinine, Serum 0.55 mg/dL (0.55-1.02); EST Glomerular Filtration Rate 112 mL/min (>60); Est Glom Filt Rate - Afr Amer 136 mL/min (>60); Estimated Creatinine Clearance 58.92 ml/min; Globulin 2.1 g/dL (2.2-4.2); Glucose 109 mg/dL (74-106); Potassium 3.4 mmol/L (3.5-5.1); Sodium Level 136 mmol/L (136-145)
[2024-03-03 09:01] LABS: Differential Comment SCANNED; Platelet Estimate ADEQUATE (ADEQ)
[2024-03-03 09:03] LABS: Anisocytosis 2+; Hypochromasia 3+; Macrocytosis 1+; Polychromasia 1+; Schistocytes 1+; Target Cells 1+
[2024-03-03] MEDS: Potassium Chloride Oral Tablet 20 MEQ 40 MEQ PO (10:49)
[2024-03-03] MEDS: Calcium Carb/Vitamin D 1 TABLET Tablet PO (10:50)
[2024-03-03] MEDS: Furosemide 40 MG Tablet PO (10:51)
[2024-03-03] MEDS: Multivitamin (Healthy Eyes) Capsule 1 CAP PO (10:51)
[2024-03-03] MEDS: APIXABAN 5 MG TABLET PO (10:51)
[2024-03-03] MEDS: Doxycycline 100 MG in Dextrose 5%-Water (250mL Bag) 250 ML 250 MG IV (10:59)
[2024-03-03] MEDS: Pantoprazole Sodium 40 MG in 0.9% Normal Saline (100mL MB+) 100 ML 330 MG IV (12:28)
[2024-03-03 12:53] VITALS: BP 119/44; PULSE 85; RESP 18; TEMP 36.7; O2SAT 99
--- NOTE | 2024-03-03 13:02 | DS.PCM_ITS ---
Providers Date of Admission: 02/28/24 Date of Discharge: 03/03/24 Primary Care Physician: Dr. Blue Lambert MD Consultations 02/28/24 08:01 Consult: Gastroenterology Routine Consulting Provider: [facility] Reason for Consult: acute anemia, FOBT positive EMERGENT Consult: No MD Notified: Yes Date Notified: 02/28/24 Time Notified: 08:01 Method of Notification: Text Reason For Visit: ANEMIA Diagnosis Discharge Diagnosis (1) Elevated bilirubin: Status: Acute Code(s): R17 - Unspecified jaundice (2) Anemia: Status: Acute Code(s): D64.9 - Anemia, unspecified Plan #Acute on chronic anemia * Etiology is unclear. Baseline hemoglobin from 11/17/2023 was 9.7. Hemoglobin was down to 6.8 on admission and after transfusion of 1 unit of packed red blood cells. Hb is 8.9. * eliquis on hold * GI on board. ON IV pantoprazole 40mg bid. * Iron profile showed iron level of 109 with iron saturation of 22.4 and ferritin level of 15. TIBC is elevated at 486. She is therefore not iron deficient though her level of iron stores are low at 15 of ferritin. * she had EGD which showed normal esophagus, with nonbleeding gastric ulcers with no stigmata of bleeding and no gross lesions in the first portion of the duodenum. * per gastroenterology, she may need colonoscopy and capsule endoscopy also * had colonoscopy which showed only diverticulosis. * peripheral smear showed microcytic anemia. * #Hyperbilirubinemia * bilirubin continues to trend down and is down to 4.3 today. * AST and ALT as well as ALP are within normal limits though. 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 * GI concerned about possible hemolytic anemia vs Gilbert syndrome vs Crigler Sirisha syndrome type II vs Celiac disease * autoimmune labs ordered by GI. Olvin test negative. * peripheral blood smear by pathologist showed microcytic anemia. * #Acute on chronic Heart failure preserved ejection fraction * BNP was elevated at over 600. * on IV lasix 40mg bid; will switch to PO lasix 40mg daily * 2D echo from July 19, 2023 showed EF of 55% with no regional wall motion abnormality seen and moderately dilated right ventricle with mild to moderate global right ventricular systolic dysfunction and 3+ tricuspid valve insufficiency with pulmonary artery systolic pressure of 60 mmHg. * Monitor intake and output. Fluid restriction to 1500 cc daily. * Also on metoprolol and spironolactone; will hold as BP was running low overnight and yesterday. * #Probable cellulitis of her RLE * she does have some erythema of her RLE. However, it did improve with wrapping of her LEs * she says she has been on antibiotics for it on outpatient basis * erythema of LE is now bilateral * on IV doxycycline. * #Hypokalemia: potassium is 3.4 today. Will replace and trend. #History of atrial fibrillation: On metoprolol. Eliquis held due to anemia and positive FOBT and supratherapeutic INR. #History of PFO versus ASD with intra-atrial shunt and mitral regurgitation * Echo findings as above. Follow-up with cardiology on outpatient basis. 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 Echo findings as above. #DVT prophylaxis: SCDs. was not anticoagulated on admission due to supratherapeutic INR. WIll discuss with GI about resuming eliquis. CODE status: DNRCCA no intubation. * Medications at Discharge Home Medications apixaban 5 mg tablet (Eliquis) 5 mg PO BID 11/13/20 calcium 500 mg-vitamin D3 500 unit-vitamin K 40 mcg chewable tablet (Viactiv) 1 tab PO DAILY 11/13/20 metoprolol succinate 100 mg tablet,extended release 24 hr 100 mg PO DAILY 11/27/20 vitamins A,C,N-xnpt-zlgoja 4,296 mcg-226 mg-90 mg capsule (PreserVision AREDS) 1 cap PO DAILY 07/06/22 spironolactone 25 mg tablet 25 mg PO DAILY #90 tabs 08/01/23 furosemide 40 mg tablet (Lasix) 40 mg PO DAILY #90 tabs 12/09/23 cholecalciferol (vitamin D3) 125 mcg (5,000 unit) tablet 125 mcg PO Q OTHER DAY 12/23/23 cyanocobalamin (vitamin B-12) 1,000 mcg tablet 1,000 mcg PO Q OTHER DAY 12/23/23 doxycycline hyclate 100 mg capsule 100 mg PO BID 02/27/24 pantoprazole 40 mg tablet,delayed release 40 mg PO BID #60 tabs 03/03/24 potassium chloride 20 mEq tablet,extended release 20 meq PO DAILY #30 tabs 03/03/24 Hospital Course Operations None Procedures Colonoscopy and EGD Summary of Care Provided Minutes Spent on Discharge: 55 Hospital Course: Patient is an 88-year-old female with past medical history as outlined was admitted to the ED on 02/27/2024 with a complaint of abnormal labs. She had labs done on outpatient basis and she was found to have hemoglobin of 6.8 and her bilirubin was elevated at 3.7. She did have a chronic history of elevated bilirubin. She had also complained of lower extremity swelling with the past few months which is causing difficulty with ambulation. She was on Eliquis for A-fib. She had been taking doxycycline for her lower extremity redness due to concerns about cellulitis. She was admitted and managed for acute on chronic anemia and hyperbilirubinemia. She was placed on IV pantoprazole and her Eliquis was held. Gastroenterology was consulted. 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 She had 2D echo from June 2023 which showed EF of 55% with no regional wall motion abnormality and moderately dilated right ventricle with mild to moderate global right ventricular systolic dysfunction and 3+ tricuspid valve insufficiency with elevated pulmonary artery systolic pressure of 60 mmHg. She had an iron panel which showed iron level of 109 with iron saturation of 22.4 and ferritin level of 15. EGD showed normal esophagus with nonbleeding gastric ulcers and no stigmata of bleeding and no gross lesions in the first portion of the duodenum. She had colonoscopy which showed only diverticulosis with no evidence of acute diverticulitis. GI ordered autoimmune labs small which was still pending at time of discharge. Due to concerns about possible hemolytic anemia, she had Olvin test and LDH test which were both negative. Peripheral smear showed microcytic anemia. His shortness of breath improved and bilirubin started trending downwards. Bilirubin was down to 4.1 at time of discharge. Her baseline bilirubin was around 2-4. She was discharged home on 03/03/2024. She was discharged on p.o. Lasix 40 mg twice daily as well as her metoprolol and spironolactone. She is to follow up with her PCP and signal and communications maintainer within 1-2 weeks. Patient seen and examined prior to discharge. She had no active complaints. She was comfortably eating breakfast. Review of systems is otherwise negative. Labs and vitals reviewed. Home meds reviewed and reconciled. Physical Exam Const alert, oriented x3 and no apparent distress Constitutional Narrative: only a tinge of jaundice General Appearance: cooperative, comfortable and well developed HEENT normocephalic, head/scalp atraumatic, hearing grossly normal bilaterally and moist oral mucous membranes Mouth: oral and palatal mucosa normal Eyes PERRL, EOMs intact bilaterally and conjunctivae normal Neck no lymphadenopathy, supple and no JVD Lymph Lymphatic: no lymphadenopathy noted and no lymphedema noted Resp normal respiratory effort, normal air movement and clear to auscultation bilaterally Cardio regular rate, regular rhythm, S1 normal heart sound, S2 normal heart sound and no murmurs Rhythm: abnormal rhythm irregularly irregular GI normal to inspection, nondistended, normoactive bowel sounds, soft to palpation, non-tender and non-distended Extremity Extremity Narrative: both LEs wrapped in a ARNULFO wraps. Skin Skin Narrative: jaundice has improved significantly General Skin Exam: no breakdown Neuro oriented x3, CN's II-XII intact bilaterally, moves all extremities, no focal motor deficits, no sensory deficits noted and deep tendon reflexes 2+ bilaterally Sensorium / Orientation: awake and alert Motor Exam: strength 5/5 throughout and general weakness Psych thought process normal, cooperative and affect normal Appearance: appropriate Weight / BMI Weight Weight: 196 lb 3.382 oz Body Mass Index (BMI) 29.7 ABG / Lab / Microbiology Data 03/03/24 06:31 03/03/24 06:31 Laboratory: Laboratory Results - last 24 hr 03/01/24 06:04: Diff Path Review Reviewed 03/03/24 06:31: WBC 9.9, RBC 3.28 L, Hgb 7.9 L, Hct 25.4 L, MCV 77.4 L, MCH 24.1 L, MCHC 31.1 L, RDW Std Deviation 63.1 H, RDW Coeff of Simona 23.0 H, Plt Count 268, MPV 9.9, Immature Gran % (Auto) 0.500, Neut % (Auto) 59.7, Lymph % (Auto) 19.9, [place] % (Auto) 17.6 H, Eos % (Auto) 1.5, Baso % (Auto) 0.8, Absolute Neuts (auto) 5.9, Absolute Lymphs (auto) 1.96, Nucleated RBC % 0, Differential Comment SCANNED, Platelet Estimate ADEQUATE, Polychromasia 1+, Hypochromasia 3+, Anisocytosis 2+, Macrocytosis 1+, Target Cells 1+, Schistocytes 1+, Sodium 136, Potassium 3.4 L, Chloride 102, Carbon Dioxide 28.0, Anion Gap 6, BUN 11, Creatinine 0.55, Estim Creat Clear Calc 58.92, Est GFR (MDRD) Af Amer 136, Est GFR (MDRD) Non-Af 112, BUN/Creatinine Ratio 20.1 H, Glucose 109 H, Calcium 8.6, Total Bilirubin 4.10 H, AST 12 L, ALT 13, Alkaline Phosphatase 103, Total Protein 5.0 L, Albumin 2.9 L, Globulin 2.1 L, Albumin/Globulin Ratio 1.4 Microbiology: Microbiology 02/27/24 21:35 Stool Stool Occult Blood (DIANA) - Final Occult Blood Positive D/C Instructions Discharge Diet: Low fat / Low cholesterol Discharge Activity: Return to Normal Activity Weight Bearing Status: Weight bearing as tolerated Call your doctor if you observe: Fever of 101 or Higher, Shortness of breath, Dizziness, Swelling in the ankles and Chest pain Meaningful Use Info Meaningful Use Meaningful Use Diagnoses (Choose all that apply): None applicable Ischemic Stroke Statin Dosing Therapy Reference: STATIN DOSE THERAPY REFERENCE: * Patients > 75 years receive moderate or high dose statin therapy. * Patients 75 years or YOUNGER should receive HIGH intensity statin dose unless contraindicated. You will be required to document reason for non-treatment if statin daily dose does not meet guidelines. HIGH DOSE STATIN THERAPY DAILY Atorvastatin > than or = to 40 mg Rosuvastatin > than or = to 20 mg Amlodipine + Atorvastatin > than or = to 2.5/40 mg Ezetimibe + Simvastatin 10/80 mg Simvastatin 80mg Discharge Plan Admission Admit Date/Time: 02/28/24 00:07 Primary Reason for Your Visit: GI bleed, hyperbilirubinemia Attending Provider: Nelsy Garcia Primary Care Provider: Blue Lambert Consulting Providers: Charlie Andrade Instructions Patient Instructions: GI Bleeding Ch, Liver Problems Signs Ch Discharge Orders/Prescriptions Prescriptions: New pantoprazole 40 mg tablet,delayed release (DR/EC) 40 mg PO BID Qty: 60 0RF potassium chloride 20 mEq tablet extended release 20 meq PO DAILY Qty: 30 1RF Continued metoprolol succinate 100 mg tablet extended release 24 hr 100 mg PO DAILY PreserVision AREDS 4,296 mcg-226 mg-90 mg capsule 1 cap PO DAILY doxycycline hyclate 100 mg capsule 100 mg PO BID calcium-vitamin D3-vitamin K [Viactiv] 500-500-40 mg-unit-mcg tablet,chewable 1 tab PO DAILY Eliquis 5 mg tablet 5 mg PO BID spironolactone 25 mg tablet 25 mg PO DAILY Qty: 90 3RF furosemide [Lasix] 40 mg tablet 40 mg PO DAILY Qty: 90 3RF cholecalciferol (vitamin D3) 125 mcg (5,000 unit) tablet 125 mcg PO Q OTHER DAY cyanocobalamin (vitamin B-12) 1,000 mcg tablet 1,000 mcg PO Q OTHER DAY Referrals / Follow Up: Blue Lambert MD [Primary Care Provider] - Within 1 Week Dane Werner DO [Med Staff - Active Staff] - Within 2 Weeks Disposition Disposition (needs filled in before D/C Order can be placed): Home, Self Care Charges/Coding Visit Charges Inpatient E&M: 33864 Disch Hosp >30min
== END 2024-03-03 15:28 | disposition home or self-care (01) | DRG 811 ==
LOC: ED 22:22 → PCU 02-28 00:39
PROVIDERS: Anesthesiology; Internal Medicine Gastroenterology; Admitting Provider Family Medicine; Emergency Provider Surgery; PCP Family Medicine; Visit Provider Student in an Organized Health Care Education/Training Program
PROC: 0DJ08ZZ Inspection of Upper Intestinal Tract, Via Natural or Artificial Opening Endoscopic (ICD-10-PCS; CPT 43235; principal; 2024-02-28 13:40)
PROC: 0DJD8ZZ Inspection of Lower Intestinal Tract, Via Natural or Artificial Opening Endoscopic (ICD-10-PCS; CPT 45378; principal; 2024-03-01 12:25)
DX: D62 Acute posthemorrhagic anemia (principal); I50.33 Acute on chronic diastolic (congestive) heart failure; L03.115 Cellulitis of right lower limb; K92.2 Gastrointestinal hemorrhage, unspecified; I27.20 Pulmonary hypertension, unspecified; I11.0 Hypertensive heart disease with heart failure; K25.9 Gastric ulcer, unspecified as acute or chronic, without hemorrhage or perforation; I48.91 Unspecified atrial fibrillation; E87.6 Hypokalemia; K57.30 Diverticulosis of large intestine without perforation or abscess without bleeding; Z66 Do not resuscitate; Z79.01 Long term (current) use of anticoagulants
CPT/HCPCS: 36415; 71046; 74177; 80048; 80053; 80074; 80076; 82248; 82274; 82306; 82607; 82728; 83021; 83036; 83540; 83550; 83605; 83615; 83690; 83735; 83880; 84439; 84443; 84484; 85025; 85610; 85660; 85730; 86850; 86880; 86900; 86901; 86920; 88305; 88342; 93005; 93970; 97110; 97162; 97165; 97535; 99285; J7040; J7120; P9016; Q9967; A4216; J1940; J2405

== ENCOUNTER → 2024-02-27 | Outpatient (CLI) | payer MEDICARE, OTHER, SELFPAY ==
[2024-02-27 15:08] LABS: Absolute Neutrophil Count 3.8 X10^3/uL (2.0-7.7); Basophil# 0.06 X10^3/uL; Basophil% 0.7 % (0-1); Eosinophil# 0.08 X10^3/uL; Eosinophils% 0.9 % (0-5); Hematocrit 22.4 % (37-47); Hemoglobin 6.8 g/dL (12.0-15.0); Lymphocyte % 28.4 % (19-41); Mean Corp Hgb Conc 30.4 g/dL (32-36); Mean Corpuscular Hgb 22.5 pg (27.0-32.0); Mean Corpuscular Volume 74.2 fL (81-99); Mean Platelet Vol. 9.7 fl (6.2-12.0); Monocyte# 2.04 X10^3/uL; Monocyte% 24.1 % (0-10); NRBC Flagged by Analyzer 0 % (0-5); Neutrophil # 3.83 X10^3/uL (2.7-7.7); Neutrophil % 45.4 % (47-70); POSITIVE DIFFERENTIAL YES; Platelet Count 313 K/mm3 (150-450); RBC Distribution Width CV 19.9 % (11.6-14.6); RBC Distribution Width SD 52.2 fl (35.1-43.9); Red Blood Count 3.02 M/mm3 (4.2-5.4); White Blood Count 8.5 K/mm3 (4.4-11.0)
[2024-02-27 15:13] LABS: Differential Indicated SCAN CRITERIA MET
[2024-02-27 15:43] LABS: Differential Comment SCANNED
[2024-02-27 15:45] LABS: Sickle RARE; Target Cells 2+
[2024-02-27 15:46] LABS: Ovalocyte 1+
[2024-02-27 15:47] LABS: Hypochromasia 2+
[2024-02-27 15:48] LABS: Polychromasia RARE
[2024-02-27 15:49] LABS: Schistocytes RARE
[2024-02-27 15:50] LABS: Vitamin B12 1536 pg/mL (211-911); Vitamin D,25 Hydroxy 61.6 ng/mL
[2024-02-27 15:56] LABS: Reactive Lymphocyte 1+; Toxic Granulation 1+
[2024-02-27 15:58] LABS: Hemoglobin A1c 5.5 % (3.8-5.6)
[2024-02-27 16:05] LABS: ALB/GLOB Ratio 1.4 RATIO (0.9-2.4); AST(SGOT) 15 U/L (15-37); Alanine Aminotransfer ALT/SGPT 15 U/L (13-56); Albumin, Serum 3.3 g/dL (3.2-5.0); Alkaline Phosphatase 132 U/L (45-117); Anion Gap 9 (5-15); BUN 11 mg/dL (7-18); BUN/Creat Ratio 16.3 RATIO (10-20); Calcium,Total 8.7 mg/dL (8.5-10.1); Chloride 101 mmol/L (98-107); Creatinine, Serum 0.67 mg/dL (0.55-1.02); EST Glomerular Filtration Rate 88 mL/min (>60); Est Glom Filt Rate - Afr Amer 106 mL/min (>60); Globulin 2.4 g/dL (2.2-4.2); Glucose 118 mg/dL (74-106); Magnesium 2.2 mg/dL (1.6-2.6); Protein, Total 5.7 g/dL (6.4-8.2); Sodium Level 133 mmol/L (136-145); T4 Free Direct 1.43 ng/dL (0.76-1.46)
[2024-02-28 15:05] LABS: Pathologist Review Reviewed
== END | disposition home or self-care (01) ==
LOC: MFPLAB 11:35
PROVIDERS: PCP Family Medicine; Visit Provider Family Medicine
DX: I48.91 Unspecified atrial fibrillation (principal); E03.8 Other specified hypothyroidism; E53.8 Deficiency of other specified B group vitamins; E55.9 Vitamin D deficiency, unspecified; R73.02 Impaired glucose tolerance (oral)
CPT/HCPCS: 36415; 80053; 82306; 82607; 83036; 83735; 84439; 84443; 85025

== ENCOUNTER → 2024-03-05 | Outpatient (CLI) | payer MEDICARE, OTHER, SELFPAY ==
[2024-03-05 18:03] LABS: Absolute Lymphocyte Count 2.05 X10^3/uL (0.83-4.51); Absolute Neutrophil Count 3.2 X10^3/uL (2.0-7.7); Basophil% 1.4 % (0-1); Eosinophil# 0.12 X10^3/uL; Eosinophils% 1.7 % (0-5); Hematocrit 26.7 % (37-47); Hemoglobin 8.1 g/dL (12.0-15.0); Lymphocyte # 2.05 X10^3/ul (0.83-4.51); Lymphocyte % 29.5 % (19-41); Mean Corp Hgb Conc 30.3 g/dL (32-36); Mean Corpuscular Hgb 23.8 pg (27.0-32.0); Mean Corpuscular Volume 78.3 fL (81-99); Mean Platelet Vol. 10.1 fl (6.2-12.0); Monocyte# 1.45 X10^3/uL; Monocyte% 20.9 % (0-10); NRBC Flagged by Analyzer 0 % (0-5); Neutrophil # 3.19 X10^3/uL (2.7-7.7); Neutrophil % 46.1 % (47-70); POSITIVE MORPHOLOGY YES; Platelet Count 252 K/mm3 (150-450); RBC Distribution Width CV 23.3 % (11.6-14.6); RBC Distribution Width SD 63.9 fl (35.1-43.9); Red Blood Count 3.41 M/mm3 (4.2-5.4); White Blood Count 6.9 K/mm3 (4.4-11.0)
[2024-03-05 18:10] LABS: ALB/GLOB Ratio 1.4 RATIO (0.9-2.4); AST(SGOT) 19 U/L (15-37); Alanine Aminotransfer ALT/SGPT 16 U/L (13-56); Albumin, Serum 3.3 g/dL (3.2-5.0); Alkaline Phosphatase 117 U/L (45-117); Anion Gap 8 (5-15); BUN 12 mg/dL (7-18); BUN/Creat Ratio 15.3 RATIO (10-20); Calcium,Total 8.8 mg/dL (8.5-10.1); Chloride 99 mmol/L (98-107); Creatinine, Serum 0.78 mg/dL (0.55-1.02); Differential Indicated SCAN CRITERIA MET; EST Glomerular Filtration Rate 74 mL/min (>60); Est Glom Filt Rate - Afr Amer 90 mL/min (>60); Globulin 2.4 g/dL (2.2-4.2); Glucose 156 mg/dL (74-106); Potassium 3.2 mmol/L (3.5-5.1); Protein, Total 5.7 g/dL (6.4-8.2); Sodium Level 135 mmol/L (136-145)
[2024-03-05 18:38] LABS: Anisocytosis 2+; Differential Comment SCANNED; Hypochromasia 2+; Target Cells 2+
[2024-03-05 18:39] LABS: Crenated RBC RARE; Schistocytes RARE
== END | disposition home or self-care (01) ==
PROVIDERS: PCP Family Medicine; Referring Provider Family Medicine; Visit Provider Family Medicine
DX: D64.9 Anemia, unspecified (principal); R60.0 Localized edema
CPT/HCPCS: 36415; 80053; 85025

== ENCOUNTER → 2024-03-14 | Outpatient (CLI) | payer MEDICARE, OTHER, SELFPAY ==
[2024-03-14 15:20] LABS: Absolute Lymphocyte Count 2.53 X10^3/uL (0.83-4.51); Absolute Neutrophil Count 3.8 X10^3/uL (2.0-7.7); Basophil# 0.09 X10^3/uL; Basophil% 1.1 % (0-1); Eosinophil# 0.14 X10^3/uL; Eosinophils% 1.8 % (0-5); Hematocrit 30.6 % (37-47); Hemoglobin 9.3 g/dL (12.0-15.0); Lymphocyte # 2.53 X10^3/ul (0.83-4.51); Lymphocyte % 31.9 % (19-41); Mean Corp Hgb Conc 30.4 g/dL (32-36); Mean Corpuscular Hgb 24.7 pg (27.0-32.0); Mean Corpuscular Volume 81.2 fL (81-99); Mean Platelet Vol. 9.9 fl (6.2-12.0); Monocyte# 1.38 X10^3/uL; Monocyte% 17.4 % (0-10); NRBC Flagged by Analyzer 0 % (0-5); Neutrophil # 3.75 X10^3/uL (2.7-7.7); Neutrophil % 47.4 % (47-70); POSITIVE MORPHOLOGY YES; Platelet Count 421 K/mm3 (150-450); RBC Distribution Width SD 69.7 fl (35.1-43.9); Red Blood Count 3.77 M/mm3 (4.2-5.4); White Blood Count 7.9 K/mm3 (4.4-11.0)
[2024-03-14 15:33] LABS: Differential Indicated SCAN CRITERIA MET
[2024-03-14 15:46] LABS: AST(SGOT) 17 U/L (15-37); Alanine Aminotransfer ALT/SGPT 16 U/L (13-56); Albumin, Serum 3.8 g/dL (3.2-5.0); Alkaline Phosphatase 123 U/L (45-117); Anion Gap 6 (5-15); BUN 10 mg/dL (7-18); BUN/Creat Ratio 13.1 RATIO (10-20); Bilirubin, Direct 0.86 mg/dL (0.00-0.30); Calcium,Total 9.3 mg/dL (8.5-10.1); Chloride 104 mmol/L (98-107); Creatinine, Serum 0.76 mg/dL (0.55-1.02); EST Glomerular Filtration Rate 76 mL/min (>60); Est Glom Filt Rate - Afr Amer 92 mL/min (>60); Ferritin 85 ng/mL (8-252); Globulin 2.3 g/dL (2.2-4.2); Glucose 118 mg/dL (74-106); Iron 44 ug/dL (50-170); Iron Binding Capacity,Total 432 ug/dL (250-450); PERCENT IRON SATURATION 10.2 % (15.0-55.0); Potassium 3.7 mmol/L (3.5-5.1); Protein, Total 6.1 g/dL (6.4-8.2); Sodium Level 138 mmol/L (136-145)
[2024-03-14 16:00] LABS: Anisocytosis 3+; Differential Comment SCANNED; Hypochromasia 3+
[2024-03-14 16:01] LABS: Crenated RBC 1+; Target Cells 2+
== END | disposition home or self-care (01) ==
LOC: MFPLAB 12:22
PROVIDERS: PCP Family Medicine; Visit Provider Family Medicine
DX: D64.9 Anemia, unspecified (principal); E80.6 Other disorders of bilirubin metabolism
CPT/HCPCS: 36415; 80048; 80076; 82607; 82728; 82746; 83540; 83550; 85025

== ENCOUNTER → 2024-03-30 | Outpatient (CLI) | payer MEDICARE, OTHER, SELFPAY ==
[2024-03-30 15:05] LABS: Absolute Lymphocyte Count 2.17 X10^3/uL (0.83-4.51); Absolute Neutrophil Count 3.2 X10^3/uL (2.0-7.7); Basophil# 0.08 X10^3/uL; Basophil% 1.2 % (0-1); Eosinophil# 0.17 X10^3/uL; Eosinophils% 2.5 % (0-5); Hematocrit 34.9 % (37-47); Lymphocyte # 2.17 X10^3/ul (0.83-4.51); Mean Corp Hgb Conc 31.5 g/dL (32-36); Mean Corpuscular Hgb 26.5 pg (27.0-32.0); Mean Corpuscular Volume 84.1 fL (81-99); Mean Platelet Vol. 10.7 fl (6.2-12.0); Monocyte# 1.19 X10^3/uL; Monocyte% 17.6 % (0-10); NRBC Flagged by Analyzer 0 % (0-5); Neutrophil # 3.15 X10^3/uL (2.7-7.7); Neutrophil % 46.4 % (47-70); POSITIVE MORPHOLOGY YES; Platelet Count 219 K/mm3 (150-450); RBC Distribution Width CV 32.1 % (11.6-14.6); RBC Distribution Width SD 94.1 fl (35.1-43.9); Red Blood Count 4.15 M/mm3 (4.2-5.4); White Blood Count 6.8 K/mm3 (4.4-11.0)
[2024-03-30 15:21] LABS: Differential Indicated SCAN CRITERIA MET
[2024-03-30 15:31] LABS: Hemoglobin A1c 5.6 % (3.8-5.6)
[2024-03-30 15:38] LABS: ALB/GLOB Ratio 1.5 RATIO (0.9-2.4); AST(SGOT) 20 U/L (15-37); Alanine Aminotransfer ALT/SGPT 19 U/L (13-56); Albumin, Serum 3.7 g/dL (3.2-5.0); Alkaline Phosphatase 118 U/L (45-117); Anion Gap 6 (5-15); BUN 14 mg/dL (7-18); BUN/Creat Ratio 17.3 RATIO (10-20); Calcium,Total 9.1 mg/dL (8.5-10.1); Chloride 105 mmol/L (98-107); Creatinine, Serum 0.81 mg/dL (0.55-1.02); EST Glomerular Filtration Rate 71 mL/min (>60); Est Glom Filt Rate - Afr Amer 86 mL/min (>60); Ferritin 90 ng/mL (8-252); Globulin 2.5 g/dL (2.2-4.2); Glucose 124 mg/dL (74-106); Iron 106 ug/dL (50-170); Magnesium 2.3 mg/dL (1.6-2.6); Potassium 3.7 mmol/L (3.5-5.1); Protein, Total 6.2 g/dL (6.4-8.2); Sodium Level 138 mmol/L (136-145); T4 Free Direct 1.53 ng/dL (0.76-1.46)
[2024-03-30 15:42] LABS: Platelet Estimate ADEQUATE (ADEQ)
[2024-03-30 15:43] LABS: Anisocytosis 1+; Burr Cells RARE; Hypochromasia 1+
== END | disposition home or self-care (01) ==
LOC: MTLAB 11:45
PROVIDERS: PCP Family Medicine; Referring Provider Family Medicine; Visit Provider Family Medicine
DX: I10 Essential (primary) hypertension (principal); I48.91 Unspecified atrial fibrillation; E03.8 Other specified hypothyroidism; D64.9 Anemia, unspecified; R73.02 Impaired glucose tolerance (oral)
CPT/HCPCS: 36415; 80053; 82728; 83036; 83540; 83735; 84439; 84443; 85025

== ENCOUNTER → 2024-05-11 | Outpatient (CLI) | payer MEDICARE, OTHER, SELFPAY ==
[2024-05-11 15:31] LABS: Absolute Lymphocyte Count 2.51 X10^3/uL (0.83-4.51); Absolute Neutrophil Count 3.2 X10^3/uL (2.0-7.7); Basophil# 0.08 X10^3/uL; Basophil% 1.1 % (0-1); Eosinophil# 0.11 X10^3/uL; Eosinophils% 1.5 % (0-5); Hematocrit 34.5 % (37-47); Hemoglobin 11.5 g/dL (12.0-15.0); Lymphocyte # 2.51 X10^3/ul (0.83-4.51); Lymphocyte % 34.7 % (19-41); Mean Corp Hgb Conc 33.3 g/dL (32-36); Mean Corpuscular Hgb 30.6 pg (27.0-32.0); Mean Corpuscular Volume 91.8 fL (81-99); Mean Platelet Vol. 10.7 fl (6.2-12.0); Monocyte# 1.31 X10^3/uL; Monocyte% 18.1 % (0-10); NRBC Flagged by Analyzer 0.3 % (0-5); Neutrophil # 3.19 X10^3/uL (2.7-7.7); Neutrophil % 44.2 % (47-70); POSITIVE MORPHOLOGY YES; Platelet Count 228 K/mm3 (150-450); Red Blood Count 3.76 M/mm3 (4.2-5.4); White Blood Count 7.2 K/mm3 (4.4-11.0)
[2024-05-11 15:34] LABS: Differential Indicated SCAN CRITERIA MET
[2024-05-11 15:43] LABS: AST(SGOT) 19 U/L (15-37); Alanine Aminotransfer ALT/SGPT 20 U/L (13-56); Albumin, Serum 3.8 g/dL (3.2-5.0); Alkaline Phosphatase 127 U/L (45-117); Anion Gap 7 (5-15); BUN 14 mg/dL (7-18); BUN/Creat Ratio 18.6 RATIO (10-20); Bilirubin, Direct 0.81 mg/dL (0.00-0.30); Calcium,Total 9.4 mg/dL (8.5-10.1); Chloride 105 mmol/L (98-107); Creatinine, Serum 0.75 mg/dL (0.55-1.02); EST Glomerular Filtration Rate 77 mL/min (>60); Est Glom Filt Rate - Afr Amer 94 mL/min (>60); Ferritin 105 ng/mL (8-252); Globulin 2.4 g/dL (2.2-4.2); Glucose 88 mg/dL (74-106); Iron 111 ug/dL (50-170); Iron Binding Capacity,Total 326 ug/dL (250-450); Magnesium 2.5 mg/dL (1.6-2.6); Potassium 3.9 mmol/L (3.5-5.1); Protein, Total 6.2 g/dL (6.4-8.2); Sodium Level 140 mmol/L (136-145)
[2024-05-11 17:47] LABS: Differential Comment SCANNED
[2024-05-11 17:49] LABS: Anisocytosis 2+; Burr Cells RARE; Hypochromasia 1+; Polychromasia RARE; Stomatocyte RARE
[2024-05-11 17:50] LABS: Target Cells 1+
[2024-05-14 16:09] LABS: Vitamin B12 581 pg/mL (211-911)
== END | disposition home or self-care (01) ==
LOC: MFPLAB 11:20
PROVIDERS: PCP Family Medicine; Referring Provider Family Medicine; Visit Provider Family Medicine
DX: D64.9 Anemia, unspecified (principal); I48.91 Unspecified atrial fibrillation; E80.6 Other disorders of bilirubin metabolism
CPT/HCPCS: 36415; 80048; 80076; 82607; 82728; 82746; 83540; 83550; 83735; 85025

== ENCOUNTER → 2024-08-14 | Outpatient (CLI) | payer MEDICARE, OTHER, SELFPAY ==
[2024-08-14 15:47] LABS: Hematocrit 35.1 % (37-47); Hemoglobin 12.3 g/dL (12.0-15.0); Mean Corpuscular Hgb 35.2 pg (27.0-32.0); Mean Corpuscular Volume 100.6 fL (81-99); POSITIVE MORPHOLOGY YES; Platelet Count 209 K/mm3 (150-450); RBC Distribution Width CV 29.9 % (11.6-14.6); Red Blood Count 3.49 M/mm3 (4.2-5.4); White Blood Count 6.5 K/mm3 (4.4-11.0)
[2024-08-14 15:52] LABS: RBC Distribution Width SD 107.4 fl (35.1-43.9); Scan Indicated on CBC? Y/N YES- FLAGS NOTED
[2024-08-14 16:58] LABS: Pro- Brain NATRIURETIC PEPTIDE 1562 pg/mL (<=1800)
[2024-08-14 17:10] LABS: Anion Gap 8 (5-15); BUN 12 mg/dL (4-19); BUN/Creat Ratio 15.2 RATIO (10-20); Carbon Dioxide 25.7 mmol/L (21.0-32.0); Chloride 104 mmol/L (98-108); Creatinine, Serum 0.82 mg/dL (0.70-1.20); EST Glomerular Filtration Rate 69 (>60); Glucose 119 mg/dL (70-99); Sodium Level 138 mmol/L (133-145)
== END | disposition home or self-care (01) ==
LOC: LAB 14:40
PROVIDERS: PCP Family Medicine; Referring Provider Student in an Organized Health Care Education/Training Program; Visit Provider Student in an Organized Health Care Education/Training Program
DX: R06.02 Shortness of breath (principal)
CPT/HCPCS: 36415; 80048; 83880; 85027

== ENCOUNTER → 2024-09-12 | Outpatient (CLI) | payer MEDICARE, OTHER, SELFPAY ==
[2024-09-12 15:36] LABS: Absolute Lymphocyte Count 2.62 X10^3/uL (0.83-4.51); Absolute Neutrophil Count 3.7 X10^3/uL (2.0-7.7); Basophil% 1.3 % (0-1); Eosinophil# 0.13 X10^3/uL; Eosinophils% 1.7 % (0-5); Hematocrit 36.1 % (37-47); Hemoglobin 12.2 g/dL (12.0-15.0); Lymphocyte # 2.62 X10^3/ul (0.83-4.51); Lymphocyte % 33.4 % (19-41); Mean Corp Hgb Conc 33.8 g/dL (32-36); Mean Corpuscular Hgb 34.2 pg (27.0-32.0); Mean Corpuscular Volume 101.1 fL (81-99); Mean Platelet Vol. 10.9 fl (6.2-12.0); Monocyte# 1.28 X10^3/uL; Monocyte% 16.3 % (0-10); NRBC Flagged by Analyzer 0.6 % (0-5); Neutrophil # 3.68 X10^3/uL (2.7-7.7); Neutrophil % 46.9 % (47-70); POSITIVE MORPHOLOGY YES; Platelet Count 206 K/mm3 (150-450); RBC Distribution Width CV 30.6 % (11.6-14.6); Red Blood Count 3.57 M/mm3 (4.2-5.4); White Blood Count 7.8 K/mm3 (4.4-11.0)
[2024-09-12 16:02] LABS: RBC Distribution Width SD 108.5 fl (35.1-43.9)
[2024-09-12 16:03] LABS: Differential Indicated SCAN CRITERIA MET
[2024-09-12 16:26] LABS: Ferritin 225 ng/mL (22-378); Vitamin D,25 Hydroxy 35.6 ng/mL (30-100)
[2024-09-12 16:29] LABS: AST(SGOT) 27 U/L (<=31); Alanine Aminotransfer ALT/SGPT 18 U/L (<=34); Alkaline Phosphatase 133 U/L (35-104); Anion Gap 9 (5-15); BUN 15 mg/dL (4-19); BUN/Creat Ratio 16.2 RATIO (10-20); Bilirubin, Direct 1.69 mg/dL (0.00-0.30); Carbon Dioxide 25.6 mmol/L (21.0-32.0); Chloride 103 mmol/L (98-108); EST Glomerular Filtration Rate 62 (>60); Globulin 1.7 g/dL (2.2-4.2); Glucose 128 mg/dL (70-99); Iron 163 ug/dL (50-170); Iron Binding Capacity,Unsat 61 ug/dL (228-428); Magnesium 2.4 mg/dL (1.5-2.2); Potassium 4.2 mmol/L (3.3-5.1); Protein, Total 5.7 g/dL (5.9-8.4); Sodium Level 138 mmol/L (133-145); Total Bilirubin 7.07 mg/dL (0.00-1.30)
[2024-09-12 16:52] LABS: Iron Binding Capacity,Total 224 ug/dL (250-450); PERCENT IRON SATURATION 72.8 % (13-59)
[2024-09-12 17:09] LABS: Hemoglobin A1c 5.6 % (<=5.6)
[2024-09-12 17:36] LABS: Anisocytosis 2+
[2024-09-12 17:37] LABS: Hypochromasia 1+; Polychromasia RARE
[2024-09-12 17:38] LABS: Target Cells 1+
[2024-09-12 17:39] LABS: Platelet Estimate ADEQUATE (ADEQ)
== END | disposition home or self-care (01) ==
LOC: MFPLAB 14:04
PROVIDERS: PCP Family Medicine; Referring Provider Family Medicine; Visit Provider Family Medicine
DX: E03.8 Other specified hypothyroidism (principal); I48.91 Unspecified atrial fibrillation; E55.9 Vitamin D deficiency, unspecified; R73.02 Impaired glucose tolerance (oral); E80.6 Other disorders of bilirubin metabolism; D64.9 Anemia, unspecified
CPT/HCPCS: 36415; 80048; 80076; 82306; 82728; 83036; 83540; 83550; 83735; 84439; 84443; 85025

== ENCOUNTER → 2024-10-29 | Outpatient (CLI) | payer MEDICARE, OTHER, SELFPAY ==
--- NOTE | 2024-10-29 11:42 | US_ITS ---
PROCEDURE: THYROID 10/29/2024 REASON FOR EXAM: THYROID NODULES TECHNIQUE: High-frequency thyroid ultrasound, including grayscale and color-flow images. REFERENCE LINKS: TI-RADS Chart: [email or web address] TI-RADS Calculator Tool with Reference Images: [email or web address] COMPARISON: 10/28/2021 FINDINGS: Right thyroid lobe size: 5.2x0.8x0.7 cm Left thyroid lobe size: 4.7x1.3x1.6 cm Isthmus: 0.3 cm Background parenchymal echotexture is heterogeneous. Nodules: Right lobe thyroid complex nodule measuring 1.1 x 0.8 x 0.7 cm is noted. TR3 Right lobe hypoechoic nodule with calcifications measuring 1.6 x 1.4 x 1.5 cm is noted. TR5 Left thyroid lobe spongiform nodule measuring 0.7 x 0.7 x 0.6 cm is noted. TR2 Left thyroid spongiform nodule measuring 0.8 x 0.7 x 0.8 cm is noted. TR2 Left thyroid solid hypoechoic nodule measuring 0.9 x 0.7 x 0.8 cm is noted. TR4 US/Thyroid IMPRESSION: Heterogenous thyroid gland, this could be seen in thyyroiditis. Bilateral thyroid nodules. Advise FNA for right lobe largest nodule. New as c ompared. Previously noted large complex right lobe nodule is not seen at this time RECOMMENDATION: Based on most suspicious nodule. Nodule size = largest diameter Only evaluate nodule if =>5 mm. Growth > 20% in 2 dimensions = worsening. Follow up to 4 nodules. Recommend biopsy for no more than 2 nodules. Reading [facility] [address]
== END | disposition home or self-care (01) ==
LOC: US 11:38
PROVIDERS: PCP Family Medicine; Referring Provider Surgery; Visit Provider Surgery
DX: E04.2 Nontoxic multinodular goiter (principal)
CPT/HCPCS: 76536

== ENCOUNTER → 2024-11-13 | Outpatient (CLI) | payer MEDICARE, OTHER, SELFPAY ==
[2024-11-13 16:59] LABS: Anion Gap 11 (5-15); BUN 15 mg/dL (4-19); BUN/Creat Ratio 17.3 RATIO (10-20); Calcium,Total 9.1 mg/dL (7.6-11.0); Carbon Dioxide 26.8 mmol/L (21.0-32.0); Chloride 100 mmol/L (98-108); Creatinine, Serum 0.87 mg/dL (0.70-1.20); EST Glomerular Filtration Rate 64 (>60); Glucose 191 mg/dL (70-99); Potassium 4.1 mmol/L (3.3-5.1); Sodium Level 137 mmol/L (133-145)
== END | disposition home or self-care (01) ==
LOC: MTLAB 13:31
PROVIDERS: PCP Family Medicine; Referring Provider Student in an Organized Health Care Education/Training Program; Visit Provider Student in an Organized Health Care Education/Training Program
DX: I10 Essential (primary) hypertension (principal); Z51.81 Encounter for therapeutic drug level monitoring; Z79.899 Other long term (current) drug therapy
CPT/HCPCS: 36415; 80048

== ENCOUNTER → 2024-11-26 | Outpatient (CLI) | payer MEDICARE, OTHER, SELFPAY ==
--- NOTE | 2024-11-26 | FLU_PTH ---
PATIENT: ANANTH DAVE LOC: [facility] U#:[id number] AGE/SX: 89/F ROOM: RE11/26/[address]: Dr. Rainer Weston MD : [id number] BED: DIS: 11/26/2024 SPEC #: [id number] RECD: 11/26/24 09:45 STATUS: LUZMA HUMBERTO #: [id number] DEUCE: 11/26/24 00:[address]: Rainer Weston DEPT: CYTOLOGY RECD BY: Won Joyce ENTERED: 11/26/24 10:25 SP TYPE: Fluid OTHR DR: Dr. Blue Lambert MD Tissues: A - Thyroid gland, NOS Procedures: Special Stain Group II Cytospin Fluid Cytology Other HEADER OPERATION: Fine needle aspiration of right thyroid nodule PRE-OP DIAGNOSIS: Right thyroid nodule TISSUE SUBMITTED: A- Right thyroid nodule for cytology DIAGNOSIS CYTOLOGY A. Thyroid, right, fine needle aspiration: Benign, see comment. COMMENT Cytologic examination shows a low cellularity specimen composed of bland appearing follicular cells (approximately 7 groups) in a background of blood. CYTOLOGY STUDY Slides are reviewed. CYTOLOGY GROSS A. Received is 30 ml of opaque cloudy cytolyt and 4 smears labeled with the patient's name and and designated per the requisition as Right thyroid nodule. Submitted for cytology and cytospin. Mr 11/26/2024 CPT: 71545,19062
== END | disposition home or self-care (01) ==
PROVIDERS: PCP Family Medicine; Visit Provider Surgery
DX: E04.1 Nontoxic single thyroid nodule (principal)
CPT/HCPCS: 88108; 88161; 88305; 88313

== ENCOUNTER → 2024-11-28 | Outpatient (CLI) | payer MEDICARE, OTHER, SELFPAY ==
[2024-11-28 15:48] LABS: Hematocrit 35.3 % (37-47); Hemoglobin 12.4 g/dL (12.0-15.0); Immature Granulocytes Count 0.040 X10^3/uL (0.0-0.0); Mean Corp Hgb Conc 35.1 g/dL (32-36); Mean Corpuscular Volume 102.9 fL (81-99); Mean Platelet Vol. 11.0 fl (6.2-12.0); NRBC Flagged by Analyzer 0.9 % (0-5); POSITIVE MORPHOLOGY YES; Platelet Count 197 K/mm3 (150-450); RBC Distribution Width CV 31.3 % (11.6-14.6); Red Blood Count 3.43 M/mm3 (4.2-5.4); White Blood Count 7.4 K/mm3 (4.4-11.0)
[2024-11-28 16:03] LABS: RBC Distribution Width SD 113.3 fl (35.1-43.9)
[2024-11-28 16:04] LABS: Differential Indicated SCAN CRITERIA MET
[2024-11-28 16:46] LABS: Cholesterol 76 mg/dL (<=200); Low Density Lipoprotein Calc. 12 mg/dL; Magnesium 2.3 mg/dL (1.5-2.2); Triglycerides 53 mg/dL; Very Low Density Lipoprotein 11 mg/dL (5-40); cholesterol:hdl ratio screen 1.44
[2024-11-28 16:56] LABS: AST(SGOT) 30 U/L (<=31); Alanine Aminotransfer ALT/SGPT 21 U/L (<=34); Albumin, Serum 3.9 g/dL (3.4-4.8); Alkaline Phosphatase 156 U/L (35-104); Anion Gap 10 (5-15); BUN 14 mg/dL (4-19); BUN/Creat Ratio 17.1 RATIO (10-20); Bilirubin, Direct 1.93 mg/dL (0.00-0.30); Calcium,Total 9.1 mg/dL (7.6-11.0); Carbon Dioxide 25.0 mmol/L (21.0-32.0); Chloride 102 mmol/L (98-108); Globulin 1.7 g/dL (2.2-4.2); Glucose 122 mg/dL (70-99); Potassium 4.5 mmol/L (3.3-5.1); Vitamin D,25 Hydroxy 37.3 ng/mL (30-100)
[2024-11-28 17:15] LABS: Vitamin B12 1966 pg/mL (180-914)
[2024-11-28 21:35] LABS: Anisocytosis 2+; Differential Comment SCANNED; Hypochromasia 1+; Polychromasia 1+
--- OUTSIDE RECORDS SUMMARY | 2024-11-28 22:32 | XMS RPT_ITS | CCD ---
Author Organization [facility]ini[facility] Care Team Providers Care [employer] Operator Name Role Phone Dr. Blue Lambert Primary Care Provider [phone] Dr. Blue Lambert Referring Provider CHRISTINA Arzate Attending Provider Dr. Blue Lambert Primary Care Provider Dr. Agustin Epstein Attending Provider Dr. Agustin Epstein Referring Provider [phone] Dr. Blue Lambert Referring Provider Dr. Charlie Stephens Attending Provider [phone] Jim Hirsch Attending Provider DO Laura Saunders Referring Provider Dr. Blue Lambert Primary Care Provider Dr. Blue Lambert Referring Provider Ronald PINTO, GRANTS ASSISTANT-C Abena Attending Provider Dr. Blue Lambert Primary Care Provider [phone] Dr. Blue Lambert Referring Provider Ronald PINTO, GRANTS ASSISTANT-C Abena Attending Provider Dr. Blue Lambert Primary Care Provider [phone] Dr. Blue Lambert Referring Provider Ronald GRANTS ASSISTANT, GRANTS ASSISTANT-C Abena Attending Provider Dr. Blue Lambert Primary Care Provider [phone] Dr. Blue Lambert Referring Provider Ronald GRANTS ASSISTANT, GRANTS ASSISTANT-C Abena Attending Provider Dr. Jb Ryan Attending Provider Petra CAIN, Dr. Blue Jacques Primary Care Provider [phone] Petra CAIN, Dr. Blue Jacques Attending Provider [phone] Petra CAIN, Dr. Blue Jacques Referring Provider Dr. Dane Werner DO Attending Provider Asim Gauthier Attending Provider [phone] Asim Gauthier Referring Provider [phone] Petra CAIN, Dr. Blue Jacques Primary Care Provider Petra CAIN, Dr. Blue Jacques Referring Provider Petra CAIN, Dr. Blue Jacques Attending Provider Petra CAIN, Dr. Blue Jacques Primary Care Provider Petra CAIN, Dr. Blue Jacques Referring Provider [phone] Enrico CAIN, Dr. Spear Attending Provider Enrico CAIN, Dr. Spear Referring Provider Jb Ryan Attending Unavailable Charlie Andrade Referring Unavailable Schinner, Blue E Primary Care Unavailable Asim Ireland Attending Unavailable Schinner, Blue E Primary Care Unavailable Schinner, Blue E Referring Unavailable Schinner, Blue E Primary Care Unavailable Rainer Weston Attending Unavailable Schinner, Blue E Referring Unavailable Schinner, Blue E Primary Care Unavailable Schinner, Blue E Attending Unavailable Schinner, Blue E Referring Unavailable Asim Ireland Attending Unavailable Asim Ireland Referring Unavailable Schinner, Blue E Primary Care Unavailable Charlie Andrade Consulting Unavailable Nelsy Garcia Attending Unavailable Charlie Andrade Admitting Unavailable Schinner, Blue E Primary Care Unavailable Jose, Nelsy Marlene Consulting Unavailable Dane Werner Attending Unavailable Schinner, Blue E Referring Unavailable Schinner, Blue E Primary Care Unavailable Blue Shukla Attending Unavailable Schinner, Blue E Referring Unavailable Schinner, Blue E Primary Care Unavailable Rainer Weston Attending Unavailable Rainer Weston Referring Unavailable Schinner, Blue E Primary Care Unavailable Schinner, Blue E Primary Care Unavailable DemiterPingAsim Attending Unavailable Demiter, Asim Referring Unavailable Schinner, Blue E Referring Unavailable Schinner, Blue E Primary Care Unavailable Schinner, Blue E Attending Unavailable Nelsy Garcia Attending Unavailable Charlie Andrade Consulting Unavailable Charlie Andrade Admitting Unavailable Schinner, Blue E Primary Care Unavailable Schinner, Blue E Primary Care Unavailable Rainer Weston Attending Unavailable Dane Werner Attending Unavailable Schinner, Blue E Referring Unavailable Schinner, Blue E Primary Care Unavailable Schinner, Blue E Referring Unavailable Jb Ryan Attending Unavailable Schinner, Blue E Primary Care Unavailable Charlie Andrade Consulting Unavailable Charlie Andrade Attending Unavailable AndradeCharlie Admitting Unavailable Schinner, Blue E Primary Care Unavailable Schinner, Blue E Referring Unavailable Schinner, Blue E Primary Care Unavailable Schinner, Blue E Attending Unavailable Dwaine Magalie S Attending Unavailable Jolljeremiah Magalie S Referring Unavailable Schinner, Blue E Primary Care Unavailable Schinner, Blue E Attending Unavailable Schinner, Blue E Primary Care Unavailable Schinner, Blue E Attending Unavailable Schinner, Blue E Primary Care Unavailable Nelsy Garcia Referring Unavailable Dane Werner Attending Unavailable DemiterAsim Attending Unavailable Schinner, Blue E Primary Care Unavailable Schinner, Blue E Referring Unavailable Demiter, Asim Attending Unavailable Schinner, Blue E Primary Care Unavailable Schinner, Blue E Referring Unavailable Allergies Allergy Classification Reported Allergen(s) Allergy Type Date of Onset Reaction(s) Facility (20 sources) amoxicillin; Translations: [AMOXICILLIN] Drug Allergy 5 AOF, throat swelling [facility] Repository (20 sources) ciprofloxacin; Translations: [CIPROFLOXACIN] Drug Allergy 4 AOF, GI upset [facility] Repository (1 source) diphenhydrAMINE; Translations: [DIPHENHYDRAMINE HCL] Drug Allergy 5 AOF [facility] Repository (19 sources) amLODIPine Drug Allergy 2 [facility] (19 sources) [facility]) Lis[facility]opril Drug Allergy 2 Angioedema [facility] (1 source) amLODIPine Drug Allergy 5 [facility] Repository (1 source) diphenhydrAMINE Drug Allergy 5 [facility] Rep[facility] (1 source) Lisinopril Drug Allergy 5 [facility] Repository Medications Current Medications Medication Drug Class(es) Dates Sig (Normalized) Sig (Original) ascorbic acid 500 mg oral capsule (7 sources) Vitamin C Start: 08-14-2024 take 1 capsule by mouth once daily Ascorbic Acid (Vitamin C) 500 mg capsule Active 500 mg PO DAILY August 14, 2024 12:00am calcium carbonate 1250 mg / cholecalciferol 500 unt / vitamin k1 0.04 mg chewable tablet (20 sources) Vitamin D, Warfarin Reversal Agent, Vitamin K Start: 11-13-2020 Calcium-Vitamin D3-Vitamin K (Viactiv) 500-500-40 mg-unit-mcg tablet,chewable Active 1 {tbl} PO DAILY 0 November 13, 2020 11:18am supplement Start: 08-03-2018 End: 11-13-2020 Calcium-Vitamin D3-Vitamin K (Viactiv) 500-500-40 mg-unit-mcg tablet,chewable Discontinued {tbl} PO 0 October 19, 2018 12:00am November 13, 2020 11:18am cholecalciferol 0.125 mg oral tablet (20 sources) Vitamin D Start: 11-13-2020 End: 12-23-2023 take 1 tablet by mouth every other day Cholecalciferol (Vitamin D3) 125 mcg (5,000 unit) tablet Active 125 ug PO every other day December 23, 2023 3:08pm vitamin ferrous sulfate 325 mg oral tablet (7 sources) Start: 03-06-2024 take 1 tablet by mouth once daily Ferrous Sulfate 325 mg (65 mg iron) tablet Active 325 mg PO daily March 06, 2024 12:00am furosemide 40 mg oral tablet (20 sources) Loop Diuretic Start: 03-06-2024 End: 08-06-2024 take 1 tablet by mouth twice daily Furosemide (Lasix) 40 mg tablet Active 40 mg PO TWICE A DAY 180 3 August 06, 2024 1:03pm diuretic Start: 01-10-2023 End: 03-06-2024 take 1 tablet by mouth once daily Furosemide (Lasix) 40 mg tablet Discontinued 40 mg PO DAILY 90 December 09, 2023 3:52pm March 06, 2024 2:13pm diuretic 24 hr metoprolol succinate 100 mg extended release oral tablet (20 sources) beta-Adrenergic Bridgett Start: 11-27-2020 take 1 tablet by mouth once daily Metoprolol Succinate 100 mg tablet extended release 24 hr Active 100 mg PO DAILY November 27, 2020 12:00am blood pressure Start: 11-13-2020 End: 11-27-2020 take 1 tablet by mouth once daily Metoprolol Succinate (Toprol Xl) 50 mg tablet extended release 24 hr Discontinued 50 mg PO DAILY November 13, 2020 11:22am November 27, 2020 2:13pm Start: 10-19-2018 End: 11-13-2020 take 2 tablets by mouth once daily Metoprolol Succinate (Toprol Xl) 50 mg tablet extended release 24 hr Discontinued 25 mg PO daily October 19, 2018 9:31am November 13, 2020 11:22am Start: 08-24-2017 End: 10-19-2018 take 1 tablet by mouth once daily Metoprolol Succinate (Toprol Xl) 50 mg tablet extended release 24 hr Discontinued 50 mg PO daily August 24, 2017 12:00am October 19, 2018 9:31am potassium chloride 20 meq extended release oral tablet (20 sources) Start: 03-03-2024 take 1 tablet by mouth once daily Potassium Chloride 20 mEq tablet extended release Active 20 meq PO DAILY 30 March 03, 2024 12:00am Start: 01-10-2023 End: 07-13-2023 take 1 tablet by mouth once daily Potassium Chloride 20 mEq tablet extended release Discontinued 20 meq PO DAILY January 10, 2023 4:06pm July 13, 2023 4:28pm spironolactone 50 mg oral tablet (20 sources) Aldosterone Antagonist Start: 08-15-2024 take 1 tablet by mouth once daily Spironolactone 50 mg tablet Active 50 mg PO DAILY 90 August 15, 2024 4:53pm diuretic Start: 07-13-2023 End: 08-15-2024 take 1 tablet by mouth once daily Spironolactone 25 mg tablet Discontinued 25 mg PO DAILY July 10, 2024 6:55pm August 15, 2024 5:14pm diuretic vitamin b12 1 mg oral tablet (20 sources) Vitamin B12 Start: 03-06-2024 Cyanocobalamin (Vitamin B-12) 1,000 mcg tablet Active 500 ug PO daily March 06, 2024 1:34pm vitamin Start: 11-13-2020 End: 03-06-2024 take 1 tablet by mouth every other day Cyanocobalamin (Vitamin B-12) 1,000 mcg tablet Discontinued 1000 ug PO every other day December 23, 2023 3:08pm March 06, 2024 1:34pm vitamin Vitamins A,C,U-Ctkf-Btjuwv (Preservision Areds) 4,296 mcg-226 mg-90 mg capsule (14 sources) Start: 07-06-2022 Vitamins A,C,E -Zinc-Copper (Preservision Areds) 4,296 mcg-226 mg-90 mg capsule Active 1 NMA PO DAILY July 06, 2022 1:00am supplement Start: 07-06-2022 Vitamins A,C,E -Zinc-Copper (Preservision Areds) 4,296 mcg-226 mg-90 mg capsule Active 1 NMA PO DAILY July 06, 2022 1:00am Start: 07-06-2022 take 1 capsule by mo [facility] once daily Vitamins A,C,L-Otve-Mblyac (Preservision Areds) 4,296 mcg-226 mg-90 mg capsule Active 1 CAP PO DAILY July 06, 2022 12:00am Start: 07-06-2022 take 1 capsule by mo [facility] once daily Vitamins A,C,F-Vjcb-Dxyygd (Preservision Areds) 4,296 mcg-226 mg-90 mg capsule Active 1 CAP PO DAILY July 06, 2022 1:00am Completed/Discontinued Medications Medication Drug Class(es) Dates Sig (Normalized) Sig (Original) amLODIPine 5 mg oral tablet (20 sources) Dihydropyridine Calcium Channel Bridgett Start: 11-13-2020 End: 11-27-2020 take 1 tablet by mouth once daily Amlodipine 5 mg tablet Discontinued 5 mg PO DAILY November 13, 2020 12:00am November 27, 2020 2:14pm Start: 08-12-2017 End: 08-24-2017 take 1 tablet by mouth once daily Amlodipine 2.5 mg tablet Discontinued 2.5 mg PO daily August 12, 2017 12:00am August 24, 2017 9:57am apixaban 5 mg oral tablet (19 sources) Factor Xa Inhibitor Start: 11-13-2020 End: 03-06-2024 take 1 tablet by mouth twice daily Apixaban (Eliquis) 5 mg tablet Discontinued 5 mg PO TWICE A DAY November 13, 2020 12:00am March 06, 2024 2:12pm blood thinner aspirin 81 mg delayed release oral tablet (19 sources) Platelet Aggregation Inhibitor, Nonsteroidal Anti-inflammatory Drug Start: 08-03-2018 End: 10-19-2018 take 1 tablet by mouth once daily Aspirin 81 mg tablet,delayed release (DR/EC) Discontinued 81 mg PO DAILY August 03, 2018 1:00am October 19, 2018 9:30am azithromycin 250 mg oral tablet (20 sources) Macrolide Antimicrobial Start: 08-11-2021 End: 01-01-2022 take 2-5 tablets by mouth once daily Azithromycin 250 mg tablet Discontinued 0 PO .COMPLEX 6 0 August 11, 2021 12:00am January 01, 2022 10:04am take 500 mg today (day 1), then 250 mg for 4 days (days 2-5) PO Start: 06-02-2019 End: 11-13-2020 take 2-5 tablets by mouth once daily Azithromycin (Zithromax Z-Ferdinand) 250 mg tablet Discontinued 0 PO .COMPLEX 6 0 June 02, 2019 1:00am November 13, 2020 11:18am take 500 mg today (day 1), then 250 mg for 4 days (days 2-5) PO benzonatate 100 mg oral capsule (19 sources) Non-narcotic Antitussive Start: 08-11-2021 End: 01-01-2022 take 2 capsules by mouth three times daily as needed for cough Benzonatate 100 mg capsule Discontinued 200 mg PO THREE TIMES A DAY as needed for cough 30 August 11, 2021 12:00am January 01, 2022 10:04am Start: 08-11-2021 End: 01-01-2022 take 200 mg by mouth three times daily Benzonatate Discontinued 200 MG PO THREE TIMES A DAY August 11, 2021 12:00am January 01, 2022 10:04am bumetanide 0.5 mg oral tablet (7 sources) Loop Diuretic Start: 03-06-2024 End: 03-06-2024 take 1 tablet by mouth once daily Bumetanide 0.5 mg tablet Discontinued 0.5 mg PO daily March 06, 2024 12:00am March 06, 2024 2:12pm clindamycin 300 mg oral capsule (20 sources) Lincosamide Antibacterial Start: 10-26-2018 End: 02-25-2019 take 1 capsule by mouth three times daily Clindamycin Hcl 300 mg capsule Discontinued 300 mg PO THREE TIMES A DAY October 26, 2018 12:00am February 25, 2019 8:23am Start: 08-03-2018 End: 10-19-2018 take 1 capsule by mouth three times daily Clindamycin Hcl 300 mg capsule Discontinued 300 mg PO THREE TIMES A DAY August 03, 2018 1:00am October 19, 2018 9:30am dapagliflozin 10 mg oral tablet (7 sources) Sodium-Glucose Cotransporter 2 Inhibitor Start: 08-15-2024 End: 08-17-2024 take 1 tablet by mouth once daily in the morning Dapagliflozin Propanediol (Farxiga) 10 mg tablet Discontinued 10 mg PO EVERY MORNING 28 06August 15, 2024 12:00am August 17, 2024 3:58pm digoxin 0.125 mg oral tablet (17 sources) Cardiac Glycoside Start: 08-15-2024 End: 10-02-2024 take 1 tablet by mouth once daily Digoxin 125 mcg (0.125 mg) tablet Discontinued 125 ug PO daily 28 06September 25, 2024 1:29pm October 02, 2024 10:05am doxycycline hyclate 100 mg oral capsule (7 sources) Tetracycline-clas s Drug Start: 02-27-2024 End: 03-06-2024 take 1 capsule by mouth twice daily Doxycycline Hyclate 100 mg capsule Discontinued 100 mg PO TWICE A DAY February 27, 2024 12:00am March 06, 2024 1:34pm infection empagliflozin 10 mg oral tablet (17 sources) Sodium-Glucose Cotransporter 2 Inhibitor Start: 08-17-2024 End: 10-02-2024 take 1 tablet by mouth once daily in the morning Empagliflozin (Jardiance) 10 mg tablet Discontinued 10 mg PO EVERY MORNING 30 September 25, 2024 1:29pm October 02, 2024 10:05am fluticasone propionate 0.05 mg/actuat metered dose nasal spray (19 sources) Corticosteroid Start: 08-12-2017 End: 08-03-2018 Fluticasone Propionate 50 mcg/actuation spray,suspension Discontinued 50 ug INTRANASAL TWICE A DAY as needed August 12, 2017 12:00am August 03, 2018 2:55pm hydroCHLOROthiazide 25 mg oral tablet (20 sources) Thiazide Diuretic Start: 01-01-2022 End: 01-10-2023 take 1 tablet by mouth once daily Hydrochlorothiazide 25 mg tablet Discontinued 25 mg PO DAILY 90 3 January 01, 2022 10:31am January 10, 2023 4:06pm Start: 11-27-2020 End: 01-01-2022 take 1 tablet by mouth once daily Hydrochlorothiazide 12.5 mg tablet Discontinued 12.5 mg PO DAILY November 27, 2020 12:00am January 01, 2022 10:33am hydroCHLOROthiazide 12.5 mg / lisinopril 10 mg oral tablet (19 sources) Thiazide Diuretic, Angiotensin Converting Enzyme Inhibitor Start: 08-12-2017 End: 10-19-2018 Lisinopril-Hydrochlorothiazi de 10-12.5 mg tablet Discontinued 1 {tbl} PO daily August 12, 2017 12:00am October 19, 2018 9:31am Start: 08-12-2017 End: 10-19-2018 take 1 tablet by mouth once daily Lisinopril-Hydrochlorothiazide Discontin ued 1 TABLET PO daily August 12, 2017 12:00am October 19, 2018 9:31am lisinopril 10 mg oral tablet (19 sources) Angiotensin Converting Enzyme Inhibitor Start: 10-19-2018 End: 11-13-2020 take 1 tablet by mouth once daily Lisinopril 10 mg tablet Discontinued 10 mg PO DAILY October 19, 2018 12:00am November 13, 2020 11:20am pantoprazole 40 mg delayed release oral tablet (20 sources) Proton Pump Inhibitor Start: 03-03-2024 End: 08-14-2024 take 1 tablet by mouth twice daily Pantoprazole 40 mg tablet,delayed release (DR/EC) Discontinued 40 mg PO TWICE A DAY 60 1 April 16, 2024 4:36pm August 14, 2024 10:00am predniSONE 10 mg oral tablet (19 sources) Start: 02-25-2019 End: 03-11-2019 Prednisone 10 mg tablet Discontinued 10 mg PO daily 30 12 0 February 25, 2019 12:00am March 08, 2019 12:00am March 11, 2019 12:09am Unspecified contact dermatitis, unspecified cause Take 4 tabs once daily days 1-3 3 tabs once daily days 4-6 2 tabs once daily days 7-9 and 1 tab once daily days 10-12. Problems Active Problems Problem Classification Problem Date Documented Da te Episodic/Chronic Acute bronchitis (20 sources) Acute bronchitis; Translations: [Acute bronchitis, unspecified] Episodic Cardiac dysrhythmias (20 sources) Atrial fibrillation; Translations: [Unspecified atrial fibrillation] Onset: 03-14-2024 Chronic Chronic obstructive pulmonary disease and bronchiectasis (19 sources) Bronchitis; Translations: [Bronchitis, not specified as acute or chronic] 11-13-2020 Episodic Congestive heart failure; nonhypertensive (6 sources) Diastolic heart failure; Translations: [Unspecified diastolic (congestive) heart failure] 11-13-2024 Chronic Deficiency and other anemia (7 sources) Hemolytic anemia; Translations: [Hereditary hemolytic anemia, unspecified] 03-06-2024 Chronic Deficiency and other anemia (9 sources) Anemia; Translations: [Anemia, unspecified] 03-14-2024 Episodic Essential hypertension (20 sources) Essential hypertension; Translations: [Essential (primary) hypertension] Onset: 11-19-2024 Chronic Fluid and electrolyte disorders (14 sources) Hypokalemia; Translations: [Hypokalemia] 01-10-2023 Episodic Heart valve disorders (20 sources) Tricuspid incompetence, non-rheumatic ; Translations: [Nonrheumatic tricuspid (valve) insufficiency] Chronic Malaise and fatigue (18 sources) Fatigue; Translations: [Other fatigue] 01-10-2023 Episodic Other aftercare (2 sources) Patient encounter status; Translations: [Encounter for therapeutic drug level monitoring] 07-13-2023 Episodic Other aftercare (7 sources) Long-term current use of diuretic; Translations: [Encounter for therapeutic drug level monitoring] 07-13-2023 Episodic Other aftercare (1 source) Encounter for therapeutic drug level monitoring; Translations: [Encounter for therapeutic drug level monitoring] Onset: 11-13-2024 Episodic Other aftercare (1 source) Other assisted (current) drug therapy; Translations: [Other termite control representative (current) drug therapy] Onset: 11-13-2024 Episodic Other and ill-defined heart disease (20 sources) Acquired atrial septal defect; Translations: [Cardiac septal defect, acquired] 11-27-2020 Chronic Other and ill-defined heart disease (10 sources) Cardiac septal defect, acquired; Translations: [Acquired cardiac septal defect] Chronic Other liver diseases (7 sources) Increased bilirubin level; Translations: [Unspecified jaundice] 03-09-2024 Episodic Other lower respiratory disease (9 sources) Dyspnea on exertion; Translations: [Other forms of dyspnea] 07-13-2023 Episodic Other lower respiratory disease (20 sources) Dyspnea; Translations: [Shortness of breath] 08-14-2024 Episodic Other nutritional; endocrine; and metabolic disorders (9 sources) Gilbert's syndrome; 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 Other upper respiratory infections (20 sources) Acute sinusitis; Translations: [Acute sinusitis, unspecified] Episodic Janna-; endo-; and myocarditis; cardiomyopathy (except that caused by tuberculosis or sexually transmitted disease) (19 sources) Pericardial effusion; Translations: [Pericardial effusion (noninflammatory)] 11-13-2020 Episodic Comment on above: Trivial per ECHO 03/19 Poisoning by nonmedicinal substances (19 sources) Bee sting; Translations: [Toxic effect of venom of bees, accidental (unintentional), initial encounter] 11-13-2020 Episodic Residual codes; unclassified (14 sources) Bilateral lower limb edema; Translations: [Localized edema] 01-10-2023 Episodic Residual codes; unclassified (20 sources) Edema of lower extremity; Translations: [Localized edema] 08-14-2024 Episodic Thyroid disorders (20 sources) Thyroid nodule; Translations: [Nontoxic single thyroid nodule] Onset: 09-17-2024 Chronic Comment on above: Patient 89-year-old female, euthyroid from an endocrine standpoint, who presents for evaluation of a highly suspicious right thyroid nodule. Interestingly, patient was previously under surveillance for a right sided thyroid nodule with Dr. Agustin Epstein. She insisted during today's visit that it only been previously biopsied on 1 occasion, however, pathology record confirms 2 separate specimens. These were benign. Patient's most recent ultrasound, completed earlier this month, showed evidence of a 1.6 cm TI-RADS 5 nodule. I believe this is the same nodule that was previously biopsied, however, I agree with the radiologic interpretation as well that I do not see a cystic component to this nodule and there is a prominent calcification resulting in an increase in the TI-RADS rating. Given this morphologic change I recommended repeating the biopsy today. Patient describes some reluctance but ultimately provided her consent. The procedure was completed in uncomplicated fashion during today's visit. Complete details are given in the procedures section of this note. Past or Other Problems Problem Classification Problem Date Documented Da te Episodic/Chronic Deficiency and other anemia (2 sources) Anemia, unspecified; Translations: [Anemia, unspecified] Onset: 4 Episodic Gastrointestinal hemorrhage (1 source) Gastrointestinal hemorrhage, unspecified; Translations: [Gastrointestinal hemorrhage, unspecified] Onset: 4 Episodic Other liver diseases (1 source) Unspecified jaundice; Translations: [Unspecified jaundice] Onset: 4 Episodic Other lower respiratory disease (1 source) Shortness of breath; Translations: [Shortness of breath] Onset: 5 Episodic Residual codes; unclassified (7 sources) Localized edema; Translations: [Edema] Onset: 4 01-10-2023 Episodic Results Test Name Value Interpretation Reference Range Facility Surgery Visit Reporton 11-26 Surgery Visit Report Normal [facility] Anion gap in Serum or Plasma Ordered By: Asim Ireland on 11-13-2024 Anion gap [Moles/Vol] 11 mmol/L - [facility] BUN/creatinine ratioOrdered By: Asim Ireland on 11-13-2024 Urea nitrogen/Creatinine [Mass ratio] 17.3 mg/mg - [facility] Basic Metabolic Profile (BMP )on 11-13-2024 BUN/CRE 17.3 RATIO Normal - [facility] Comment on above: Performed By: #### L 500.2500 ####[facility] [address] [place], [address] Calcium [Mass/Vol] 9.1 mg/dL Normal 7.6-11.0 [facility] Comment on above: Performed By: #### L 500.2500 ####[facility] [address] [place], [address] Chloride [Moles/Vol] 100 mmol/L Normal 98-108 [facility] Comment on above: Performed By: #### L 500.2500 ####[facility] [address] [place], [address] CO2 [Moles/Vol] 26.8 mmol/L Normal 21.0-32.0 [facility] Comment on above: Performed By: #### L 500.2500 ####[facility] [address] [place], [address] Creatinine [Mass/Vol] 0.87 mg/dL Normal 0.70-1.20 [facility] Comment on above: Result Comment: Icte aron present, Results may be affected. Performed By: #### L 500.2500 ####[facility] [address] [place], [address] GAP 11 Normal 5-15 [facility] Comment on above: Performed By: #### L 500.2500 ####[facility] [address] [place], [address] GFR/1.73 sq M.predicted among non-blacks MDRD (S/P/Bld) [Vol rate/Area] 64 mL/min/{1.73_m2} Normal >60 [facility] Comment on above: Result Comment: mL/m in/1.73m2 CKD-EPI Creatinine Equation (2020) Performed By: #### L 500.2500 ####[facility] [address] [place], [address] Glucose [Mass/Vol] 191 mg/dL High 70-99 [facility] Comment on above: Performed By: #### L 500.2500 ####[facility] [address] [place], [address] Potassium [Moles/Vol] 4.1 mmol/L Normal 3.3-5.1 [facility] Comment on above: Performed By: #### L 500.2500 ####[facility] [address] [place], [address] Sodium [Moles/Vol] 137 mmol/L Normal 133-145 [facility] Comment on above: Performed By: #### L 500.2500 ####[facility] [address] [place], [address] Urea nitrogen [Mass/Vol] 15 mg/dL Normal 4-19 [facility] Comment on above: Performed By: #### L 500.2500 ####[facility] [address] [place], [place], [phone] Carbon dioxide, total [Moles /volume] in Central venous bloodOrdered By: Asim Ireland on 11-13-2024 CO2 [Moles/Vol] 26.8 mmol/L 21.0-32.0 [facility] Cardiology Visit Reporton Cardiology Visit Report Normal [facility] Chloride assayOrdered By: Ping Ireland on 11-13-2024 Chloride [Moles/Vol] 100 mmol/L 98-108 [facility] Glomerular filtration rate ( GFR) estimation/1.73 sq m using serum, plasma, or whole bOrdered By: Asim Ireland on 11-13-2024 GFR/1.73 sq M.predicted among non-blacks MDRD (S/P/Bld) [Vol rate/Area] 64 mL/min/{1.73_m2} >60 [facility] Comment on above: mL/min/1.73m2 CKD-EP I Creatinine Equation (2020) Potassium measurement (mass/ volume)Ordered By: Asim Ireland on 11-13-2024 Potassium (Unsp spec) [Mass/Vol] 4.1 mmol/L 3.3-5.1 [facility] Serum creatinine measurement (mass/volume)Ordered By: Asim Ireland on 11-13-2024 Creatinine [Mass/Vol] 0.87 mg/dL 0.70-1.20 [facility] Comment on above: Icterus present, Res ults may be affected. Serum glucose measurement (m ass/volume)Ordered By: Asim Ireland on 11-13-2024 Glucose [Mass/Vol] 191 mg/dL High 70-99 [facility] Serum or plasma calcium don urement (mass/volume)Ordered By: Asim Ireland on 11-13-2024 Calcium [Mass/Vol] 9.1 mg/dL 7.6-11.0 [facility] Serum or plasma urea nitroge n measurement (mass/volume)Ordered By: Asim Ireland on 11-13-2024 Urea nitrogen [Mass/Vol] 15 mg/dL 4- [facility] Sodium levelOrdered By: Seble Ireland on 11-13-2024 Sodium [Moles/Vol] 137 mmol/L 133-145 [facility] Thyroidon 10-29-2024 Thyroid Normal [facility] Cardiology Visit Reporton Cardiology Visit Report Normal [facility] Absolute lymphocyte countOrd ered By: Blue Lambert on 09-12-2024 Lymphocytes Auto (Unsp spec) [#/Vol] 2.62 10*3/uL 0.83-4.51 [facility] Absolute neutrophil countOrd ered By: Blue Lambert on 09-12-2024 Neutrophils (Bld) [#/Vol] 3.7 10*3/uL 2.0-7.7 [facility] Anion gap in Serum or Plasma Ordered By: Blue Lambert on 09-12-2024 Anion gap [Moles/Vol] 9 mmol/L - [facility] Automated lymphocyte count a s percentage of total leukocytesOrdered By: Blue Lambert on 09-12-2024 Lymphocytes/100 WBC Auto (Unsp spec) 33.4 % - [facility] BUN/creatinine ratioOrdered By: Blue Lambert on 09-12-2024 Urea nitrogen/Creatinine [Mass ratio] 16.2 mg/mg 10- [facility] Basic Metabolic Profile (BMP )on 09-12-2024 BUN/CRE 16.2 RATIO Normal - [facility] Comment on above: Performed By: #### L 503.6550, L500.3400, L100.0100, L503.6030, L500.2500, L506.0400, L506.1001, L501.9985, L501.5200, L501.9520 ####[facility] [address] [place], [address] Calcium [Mass/Vol] 9.0 mg/dL Normal 7.6-11.0 [facility] Comment on above: Performed By: #### L 503.6550, L500.3400, L100.0100, L503.6030, L500.2500, L506.0400, L506.1001, L501.9985, L501.5200, L501.9520 ####[facility] [address] [place], [address] Chloride [Moles/Vol] 103 mmol/L Normal 98-108 [facility] Comment on above: Performed By: #### L 503.6550, L500.3400, L100.0100, L503.6030, L500.2500, L506.0400, L506.1001, L501.9985, L501.5200, L501.9520 ####[facility] [address] [place], [address] CO2 [Moles/Vol] 25.6 mmol/L Normal 21.0-32.0 [facility] Comment on above: Performed By: #### L 503.6550, L500.3400, L100.0100, L503.6030, L500.2500, L506.0400, L506.1001, L501.9985, L501.5200, L501.9520 ####[facility] [address] [place], [address] Creatinine [Mass/Vol] 0.90 mg/dL Normal 0.70-1.20 [facility] Comment on above: Result Comment: Icte aron present, Results may be affected. Performed By: #### L 503.6550, L500.3400, L100.0100, L503.6030, L500.2500, L506.0400, L506.1001, L501.9985, L501.5200, L501.9520 ####[facility] [address] [place], [address] GAP 9 Normal 5-15 [facility] Comment on above: Performed By: #### L 503.6550, L500.3400, L100.0100, L503.6030, L500.2500, L506.0400, L506.1001, L501.9985, L501.5200, L501.9520 ####[facility] [address] [place], [place], [phone]) GFR/1.73 sq M.predicted among non-blacks MDRD (S/P/Bld) [Vol rate/Area] 62 mL/min/{1.73_m2} Normal >60 [facility] Comment on above: Result Comment: mL/m in/1.73m2 CKD-EPI Creatinine Equation (2020) Performed By: #### L 503.6550, L500.3400, L100.0100, L503.6030, L500.2500, L506.0400, L506.1001, L501.9985, L501.5200, L501.9520 ####[facility] [address] [place], [place], [phone](294) Glucose [Mass/Vol] 128 mg/dL High 70-99 [facility] Comment on above: Performed By: #### L 503.6550, L500.3400, L100.0100, L503.6030, L500.2500, L506.0400, L506.1001, L501.9985, L501.5200, L501.9520 ####[facility] [address] [place], [place], [phone](742) Potassium [Moles/Vol] 4.2 mmol/L Normal 3.3-5.1 [facility] Comment on above: Performed By: #### L 503.6550, L500.3400, L100.0100, L503.6030, L500.2500, L506.0400, L506.1001, L501.9985, L501.5200, L501.9520 ####[facility] [address] [place], [place], [id number] Sodium [Moles/Vol] 138 mmol/L Normal 133-145 [facility] Comment on above: Performed By: #### L 503.6550, L500.3400, L100.0100, L503.6030, L500.2500, L506.0400, L506.1001, L501.9985, L501.5200, L501.9520 ####[facility] [address] [place], [place], [phone] Urea nitrogen [Mass/Vol] 15 mg/dL Normal 4-19 [facility] Comment on above: Performed By: #### L 503.6550, L500.3400, L100.0100, L503.6030, L500.2500, L506.0400, L506.1001, L501.9985, L501.5200, L501.9520 ####[facility] [address] [place], [place], [id number] Basophil percentageOrdered B y: Blue Lambert on 09-12-2024 Basophils/100 WBC (Bld) 1.3 % High 0-1 [facility] Bilirubin directOrdered By: Blue Lambert on 09-12-2024 Bilirubin.direct [Mass/Vol] 1.69 mg/dL High 0.00-0.30 [facility] Bilirubin, totalOrdered By: Blue Lambert on 09-12-2024 Bilirubin [Mass/Vol] 7.07 mg/dL High 0.00-1.30 [facility] Blood polychromasia detectio n by light microscopyOrdered By: Blue Lambert on 09-12-2024 Polychromasia LM Ql (Bld) RARE [facility] CBC W/Diff, Automatedon 08-28 PLT EST ADEQUATE Normal ADEQ [facility] Comment on above: Performed By: #### L 503.6550, L500.3400, L100.0100, L503.6030, L500.2500, L506.0400, L506.1001, L501.9985, L501.5200, L501.9520 ####[facility] [address] [place], [address] Calculated total iron bindin g capacityOrdered By: Blue Lambert on 09-12-2024 Total Iron Binding Capacity 224 ug/dL Low 250-450 [facility] Carbon dioxide, total [Moles /volume] in Central venous bloodOrdered By: Blue Lambert on 09-12-2024 CO2 [Moles/Vol] 25.6 mmol/L 21.0-32.0 [facility] Chloride assayOrdered By: Arely Lambert on 09-12-2024 Chloride [Moles/Vol] 103 mmol/L 98-108 [facility] Eosinophil percentageOrdered By: Blue Lambert on 09-12-2024 Eosinophils/100 WBC (Bld) 1.7 % 0-5 [facility] Erythrocyte distribution wid th (RBC) [Ratio]Ordered By: Blue Lambert on 09-12-2024 Erythrocyte distribution width (RBC) [Entitic vol] 108.5 fL High 35.1-43.9 [facility] Erythrocyte distribution wid th ratioOrdered By: Blue Lambert on 09-12-2024 Erythrocyte distribution width (RBC) [Ratio] 30.6 % High 11.6-14.6 [facility] Erythrocyte distribution wid th standard deviationOrdered By: Blue Lambert on 09-12-2024 Erythrocyte distribution width (RBC) [Ratio] 108.5 fl High 35.1-43.9 [facility] Ferritinon 09-12-2024 Ferritin [Mass/Vol] 225 ng/mL Normal 22-378 [facility] Comment on above: Performed By: #### L 503.6550, L500.3400, L100.0100, L503.6030, L500.2500, L506.0400, L506.1001, L501.9985, L501.5200, L501.9520 ####[facility] [address] [place], [address] GFR/1.73 sq M.predicted della g non-blacks MDRD (S/P/Bld) [Vol rate/Area]Ordered By: Blue Lambert on 09-12-2024 Estimated GFR (MDRD) Non-Af Amer 62 >60 [facility] Comment on above: mL/min/1.73m2 CKD-EP I Creatinine Equation (2020) Glomerular filtration rate ( GFR) estimation/1.73 sq m using serum, plasma, or whole bOrdered By: Blue Lambert on 09-12-2024 GFR/1.73 sq M.predicted among non-blacks MDRD (S/P/Bld) [Vol rate/Area] 62 mL/min/{1.73_m2} >60 [facility] Comment on above: mL/min/1.73m2 CKD-EP I Creatinine Equation (2020) Hematocrit Auto (Bld) [Volum e fraction]Ordered By: Blue Lambert on 09-12-2024 Hematocrit (Bld) [Volume fraction] 36.1 % Low 37-47 [facility] Hemoglobin A1con 09-12-2024 HbA1c (Bld) [Mass fraction] 5.6 % Normal <=5.6 [facility] Comment on above: Result Comment: Norm al < 5.7 % Prediabetic 5.7 - 6.4 % Diabetic >or= 6.5 % Please note range changes. Performed By: #### L 503.6550, L500.3400, L100.0100, L503.6030, L500.2500, L506.0400, L506.1001, L501.9985, L501.5200, L501.9520 ####[facility] [address] [place], [address] Hemoglobin A1c percentageOrd ered By: Blue Lambert on 09-12-2024 HbA1c (Bld) [Mass fraction] 5.6 % <5.7 [facility] Comment on above: Normal < 5.7 % Predi abetic 5.7 - 6.4 % Diabetic >or= 6.5 % Please note range changes. Hemoglobin measurementOrdere d By: Blue Lambert on 09-12-2024 Hemoglobin (Bld) [Mass/Vol] 12.2 g/dL 12.0-15.0 [facility] Hypochromatic red blood cell detectionOrdered By: Blue Lambert on 09-12-2024 Hypochromia Ql (Bld) 1+ [facility] Hypochromia Ql (Bld)Ordered By: Blue Lambert on 09-12-2024 Hypochromasia 1+ [facility] Immature granulocytes/100 WB C Auto (Bld)Ordered By: Blue Lambert on 09-12-2024 Immature granulocytes/100 WBC (Bld) 0.400 % 0.0-0.9 [facility] Comment on above: IG% - Immature Granu locytes (promyelocytes, myelocytes and metamyelocytes) > 1% indicates that a LEFT SHIFT is Present. Iron (Unsp spec) [Mass/Mass] Ordered By: Blue Lambert on 09-12-2024 Iron [Mass/Vol] 163 ug/dL 50-170 [facility] Iron measurement (mass/mass) Ordered By: Blue Lambert on 09-12-2024 Iron (Unsp spec) [Mass/Mass] 163 ug/dL 50-170 [facility] Iron saturation [Mass fracti on]Ordered By: Blue Lambert on 09-12-2024 Iron Saturation 72.8 % High 13-59 [facility] Comment on above: Previous reported re sult: 73.0 %Edited by: NATHAN on 09/12/24:1652 AMENDED REPORT 09/12/24 1652 IRON SATURATION previously reported as: 73.0 H % Iron+Iron Binding Capacityon 09-12-2024 TIBC 224 ug/dL Low 250-450 [facility] Comment on above: Performed By: #### L 503.6550, L500.3400, L100.0100, L503.6030, L500.2500, L506.0400, L506.1001, L501.9985, L501.5200, L501.9520 ####[facility] [address] [place], [place], [phone] Laboratory - Chemistry and C hemistry - challengeOrdered By: Blue Lambert on 09-12-2024 AST [Catalytic activity/Vol] 27 U/L <32 [facility] Laboratory - Hematology and Cell countsOrdered By: Blue Lambert on 09-12-2024 Anisocytosis Ql (Bld) 2+ [facility] Liver Profileon 09-12-2024 Albumin [Mass/Vol] 4.0 g/dL Normal 3.4-4.8 [facility] Comment on above: Performed By: #### L 503.6550, L500.3400, L100.0100, L503.6030, L500.2500, L506.0400, L506.1001, L501.9985, L501.5200, L501.9520 ####[facility] [address] [place], [place], [id number] ALK PHOS 133 U/L High 35-104 [facility] Comment on above: Performed By: #### L 503.6550, L500.3400, L100.0100, L503.6030, L500.2500, L506.0400, L506.1001, L501.9985, L501.5200, L501.9520 ####[facility] [address] [place], [place], [phone] ALT [Catalytic activity/Vol] 18 U/L Normal <=34 [facility] Comment on above: Performed By: #### L 503.6550, L500.3400, L100.0100, L503.6030, L500.2500, L506.0400, L506.1001, L501.9985, L501.5200, L501.9520 ####[facility] [address] [place], [address](483) AST [Catalytic activity/Vol] 27 U/L Normal <=31 [facility] Comment on above: Performed By: #### L 503.6550, L500.3400, L100.0100, L503.6030, L500.2500, L506.0400, L506.1001, L501.9985, L501.5200, L501.9520 ####[facility] [address] [place], [address](460) Bilirubin [Mass/Vol] 7.07 mg/dL High 0.00-1.30 [facility] Comment on above: Performed By: #### L 503.6550, L500.3400, L100.0100, L503.6030, L500.2500, L506.0400, L506.1001, L501.9985, L501.5200, L501.9520 ####[facility] [address] [place], [address] Bilirubin.direct [Mass/Vol] 1.69 mg/dL High 0.00-0.30 [facility] Comment on above: Performed By: #### L 503.6550, L500.3400, L100.0100, L503.6030, L500.2500, L506.0400, L506.1001, L501.9985, L501.5200, L501.9520 ####[facility] [address] [place], [place], [phone] Globulin (S) [Mass/Vol] 1.7 g/dL Low 2.2-4.2 [facility] Comment on above: Performed By: #### L 503.6550, L500.3400, L100.0100, L503.6030, L500.2500, L506.0400, L506.1001, L501.9985, L501.5200, L501.9520 ####[facility] [address] [place], [address](242) T PROT 5.7 g/dL Low 5.9-8.4 [facility] Comment on above: Performed By: #### L 503.6550, L500.3400, L100.0100, L503.6030, L500.2500, L506.0400, L506.1001, L501.9985, L501.5200, L501.9520 ####[facility] [address] [place], [address] Lymphocytes Auto (Unsp spec) [#/Vol]Ordered By: Blue Lambert on 09-12-2024 Lymphocytes (Bld) [#/Vol] 2.62 10*3/uL 0.83-4.51 [facility] Lymphocytes/100 WBC Auto (Un sp spec)Ordered By: Blue Lambert on 09-12-2024 Lymphocytes/100 WBC (Bld) 33.4 % 19-41 [facility] MCV (mean corpuscular volume ) determinationOrdered By: Blue Lambert on 09-12-2024 MCV (RBC) [Entitic vol] 101.1 fL High 81-99 [facility] Magnesiumon 09-12-2024 Magnesium [Mass/Vol] 2.4 mg/dL High 1.5-2.2 [facility] Comment on above: Performed By: #### L 503.6550, L500.3400, L100.0100, L503.6030, L500.2500, L506.0400, L506.1001, L501.9985, L501.5200, L501.9520 ####[facility] [address] [place], [address] Magnesium (Unsp spec) [Mass/ Vol]Ordered By: Blue Lambert on 09-12-2024 Magnesium [Mass/Vol] 2.4 mg/dL High 1.5-2.2 [facility] Magnesium measurement (mass/ volume)Ordered By: Blue Lambert on 09-12-2024 Magnesium (Unsp spec) [Mass/Vol] 2.4 mg/dL High 1.5-2.2 [facility] Mean corpuscular hemoglobin (MCH) determinationOrdered By: Blue Lambert on 09-12-2024 MCH (RBC) [Entitic mass] 34.2 pg High 27.0-32.0 [facility] Mean corpuscular hemoglobin concentration (MCHC) determinationOrdered By: Blue Lambert on 09-12-2024 MCHC (RBC) [Mass/Vol] 33.8 g/dL 32-36 [facility] Mean platelet volume determi nationOrdered By: Blue Lambert on 09-12-2024 Platelet mean volume (Bld) [Entitic vol] 10.9 fL 6.2-12.0 [facility] Monocyte percentageOrdered B y: Blue Lambert on 09-12-2024 Monocytes/100 WBC (Bld) 16.3 % High 0-10 [facility] Neutrophil percentageOrdered By: Blue Lambert on 09-12-2024 Neutrophils/100 WBC (Bld) 46.9 % Low 47-70 [facility] No Panel InformationOrdered By: Blue aLmbert on 09-12-2024 Unsaturated Iron Binding Capacity 61 ug/dL Low 228-428 [facility] Nucleated red blood cell per centageOrdered By: Blue Lambert on 09-12-2024 Nucleated RBC/100 WBC (Bld) [Ratio] 0.6 % 0-5 [facility] Platelet countOrdered By: Arely Lambert on 09-12-2024 Platelets (Bld) [#/Vol] 206 10*3/uL 150-450 [facility] Platelet estimateOrdered By: Blue Lambert on 09-12-2024 Platelets LM Ql (Bld) ADEQUATE ADEQ [facility] Platelets LM Ql (Bld)Ordered By: Blue Lambert on 09-12-2024 Platelet Estimate [facility] Polychromasia LM Ql (Bld)Ord ered By: Blue Lambert on 09-12-2024 Polychromasia RARE [facility] Potassium (Unsp spec) [Mass/ Vol]Ordered By: Blue Lambert on 09-12-2024 Potassium [Moles/Vol] 4.2 mmol/L 3.3-5.1 [facility] Potassium measurement (mass/ volume)Ordered By: Blue Lambert on 09-12-2024 Potassium (Unsp spec) [Mass/Vol] 4.2 mmol/L 3.3-5.1 [facility] RBC Auto (Bld) [#/Vol]Ordere d By: Bleu Lambert on 09-12-2024 RBC (Bld) [#/Vol] 3.57 10*6/uL Low 4.2-5.4 [facility] Serum creatinine measurement (mass/volume)Ordered By: Blue Lambert on 09-12-2024 Creatinine [Mass/Vol] 0.90 mg/dL 0.70-1.20 [facility] Comment on above: Icterus present, Res ults may be affected. Serum globulin measurementOr dered By: Blue Lambert on 09-12-2024 Globulin (S) [Mass/Vol] 1.7 g/dL Low 2.2-4.2 [facility] Serum glucose measurement (m ass/volume)Ordered By: Blue Lambert on 09-12-2024 Glucose [Mass/Vol] 128 mg/dL High 70-99 [facility] Serum or plasma alanine guajardo otransferase (ALT) measurementOrdered By: Blue Lambert on 09-12-2024 ALT [Catalytic activity/Vol] 18 U/L <35 [facility] Serum or plasma albumin don urement (mass/volume)Ordered By: Blue Lambert on 09-12-2024 Albumin [Mass/Vol] 4.0 g/dL 3.4-4.8 [facility] Serum or plasma alkaline pamela sphatase measurementOrdered By: Blue Lambert on 09-12-2024 ALP [Catalytic activity/Vol] 133 U/L High 35-104 [facility] Serum or plasma calcium don urement (mass/volume)Ordered By: Blue Lambert on 09-12-2024 Calcium [Mass/Vol] 9.0 mg/dL 7.6-11.0 [facility] Serum or plasma ferritin jeremiah surement (mass/volume)Ordered By: Blue Lambert on 09-12-2024 Ferritin [Mass/Vol] 225 ng/mL 22-378 [facility] Serum or plasma iron saturat ion measurement (mass fraction)Ordered By: Blue Lambert on 09-12-2024 Iron saturation [Mass fraction] 72.8 % High 13-59 [facility] Comment on above: Previous reported re sult: 73.0 %Edited by: NATHAN on 09/12/24:1652 AMENDED REPORT 09/12/241651 IRON SATURATION previously reported as: 73.0 H % Serum or plasma urea nitroge n measurement (mass/volume)Ordered By: Blue Lambert on 09-12-2024 Urea nitrogen [Mass/Vol] 15 mg/dL 4-19 [facility] Sodium levelOrdered By: Blue Lambert on 09-12-2024 Sodium [Moles/Vol] 138 mmol/L 133-145 [facility] T4 Free Directon 09-12-2024 T4 FREE DIRECT 1.30 ng/dL Normal 0.76-1.46 [facility] Comment on above: Performed By: #### L 503.6550, L500.3400, L100.0100, L503.6030, L500.2500, L506.0400, L506.1001, L501.9985, L501.5200, L501.9520 ####[facility] [address] [place], [place], [id number] T4 freeOrdered By: Blue vang on 09-12-2024 Free T4 [Mass/Vol] 1.30 ng/dL 0.76-1.46 [facility] TSH DL <= 0.005 mIU/L QnOrde red By: Blue Lambert on 09-12-2024 Thyroid Stimulating Hormone (TSH) 4.340 uIU/mL High 0.300-4.200 [facility] TSH Qn 4.340 uIU/mL High 0.300-4.200 [facility] Target cell detectionOrdered By: Blue Lambert on 09-12-2024 Target cells LM Ql (Bld) 1+ [facility] Target cells LM Ql (Bld)Orde red By: Blue Lambert on 09-12-2024 Target Cells 1+ [facility] Thyroid Stim Hormone (TSH)on 09-12-2024 TSH 4.340 uIU/mL High 0.300-4.200 [facility] Comment on above: Performed By: #### L 503.6550, L500.3400, L100.0100, L503.6030, L500.2500, L506.0400, L506.1001, L501.9985, L501.5200, L501.9520 ####[facility] [address] [place], [address] Total proteinOrdered By: Rinku Lambert on 09-12-2024 Protein [Mass/Vol] 5.7 g/dL Low 5.9-8.4 [facility] Vitamin D, 25-hydroxyOrdered By: Blue Lambert on 09-12-2024 Vitamin D 25-Hydroxy 35.6 ng/mL 30-100 [facility] Comment on above: Vitamin D StatusDefi ciency: <20 ng/mL (50nmol/L)Insufficiency: 20-30 ng/mL (50-75 nmol/L)Sufficiency: 30-100 ng/mL (75-250 nmol/L)Toxicity: >100 ng/mL (>250 nmol/L) Vitamin D,25 Hydroxyon 09-12 Vitamin D 25-OH 35.6 ng/mL Normal 30-100 [facility] Comment on above: Result Comment: Viviana min D StatusDeficiency: <20 ng/mL (50nmol/L)Insufficiency: 20-30 ng/mL (50-75 nmol/L)Sufficiency: 30-100 ng/mL (75-250 nmol/L)Toxicity: >100 ng/mL (>250 nmol/L) Performed By: #### L 503.6550, L500.3400, L100.0100, L503.6030, L500.2500, L506.0400, L506.1001, L501.9985, L501.5200, L501.9520 ####[facility] [address] [place], [address] White blood cell (WBC) count Ordered By: Blue Lambert on 09-12-2024 WBC (Bld) [#/Vol] 7.8 10*3/uL 4.4-11.0 [facility] 12 Lead EKG performed by BMS on 08-14-2024 12 Lead EKG performed by BMS Normal [facility] Anion gap in Serum or Plasma Ordered By: Asim Ireland on 08-14-2024 Anion gap [Moles/Vol] 8 mmol/L - [facility] BUN/creatinine ratioOrdered By: Asim Ireland on 08-14-2024 Urea nitrogen/Creatinine [Mass ratio] 15.2 mg/mg - [facility] Basic Metabolic Profile (BMP )on 08-14-2024 BUN/CRE 15.2 RATIO Normal - [facility] Comment on above: Performed By: #### L 100.4500, L100.0500, L500.2500, L503.7505 ####[facility] [address] [place], [address] Calcium [Mass/Vol] 9.0 mg/dL Normal 7.6-11.0 [facility] Comment on above: Performed By: #### L 100.4500, L100.0500, L500.2500, L503.7505 ####[facility] [address] [place], [address] Chloride [Moles/Vol] 104 mmol/L Normal 98-108 [facility] Comment on above: Performed By: #### L 100.4500, L100.0500, L500.2500, L503.7505 ####[facility] [address] [place], [address] CO2 [Moles/Vol] 25.7 mmol/L Normal 21.0-32.0 [facility] Comment on above: Performed By: #### L 100.4500, L100.0500, L500.2500, L503.7505 ####[facility] [address] [place], [address] Creatinine [Mass/Vol] 0.82 mg/dL Normal 0.70-1.20 [facility] Comment on above: Result Comment: Icte aron present, Results may be affected. Performed By: #### L 100.4500, L100.0500, L500.2500, L503.7505 ####[facility] [address] [place], [address] GAP 8 Normal 5-15 [facility] Comment on above: Performed By: #### L 100.4500, L100.0500, L500.2500, L503.7505 ####[facility] [address] [place], [address] GFR/1.73 sq M.predicted among non-blacks MDRD (S/P/Bld) [Vol rate/Area] 69 mL/min/{1.73_m2} Normal >60 [facility] Comment on above: Result Comment: mL/m in/1.73m2 CKD-EPI Creatinine Equation (2020) Performed By: #### L 100.4500, L100.0500, L500.2500, [id number] ####[facility] [address] [place], [address] Glucose [Mass/Vol] 119 mg/dL High 70-99 [facility] Comment on above: Performed By: #### L 100.4500, L100.0500, L500.2500, [id number] ####[facility] [address] [place], [address] Potassium [Moles/Vol] 4.0 mmol/L Normal 3.3-5.1 [facility] Comment on above: Result Comment: Hemo lysis present, Results??could be affected.?? Performed By: #### L 100.4500, L100.0500, L500.2500, [id number] ####[facility] [address] [place], [address] Sodium [Moles/Vol] 138 mmol/L Normal 133-145 [facility] Comment on above: Performed By: #### L 100.4500, L100.0500, L500.2500, [id number] ####[facility] [address] [place], [address] Urea nitrogen [Mass/Vol] 12 mg/dL Normal 4-19 [facility] Comment on above: Performed By: #### L 100.4500, L100.0500, L500.2500, [id number] ####[facility] [address] [place], [address] Blood manual differential co mment interpretation (narrative result)Ordered By: Asim Ireland on 08-14-2024 Manual differential comment Ulises (Bld) [Interp] COMMENT [facility] Comment on above: 2+ ANISO. CBC-Complete Blood Cnt No Di ffon 08-14-2024 RDW SD 107.4 fl High 35.1-43.9 [facility] Comment on above: Performed By: #### L 100.4500, L100.0500, L500.2500, L503.7505 ####[facility] [address] [place], [address] Erythrocyte distribution width (RBC) [Ratio] 29.9 % High 11.6-14.6 [facility] Comment on above: Performed By: #### L 100.4500, L100.0500, L500.2500, L503.7505 ####[facility] [address] [place], [address] Hematocrit (Bld) [Volume fraction] 35.1 % Low 37-47 [facility] Comment on above: Performed By: #### L 100.4500, L100.0500, L500.2500, L503.7505 ####[facility] [address] [place], [address] Hemoglobin (Bld) [Mass/Vol] 12.3 g/dL Normal 12.0-15.0 [facility] Comment on above: Performed By: #### L 100.4500, L100.0500, L500.2500, L503.7505 ####[facility] [address] [place], [address] MCH (RBC) [Entitic mass] 35.2 pg High 27.0-32.0 [facility] Comment on above: Performed By: #### L 100.4500, L100.0500, L500.2500, L503.7505 ####[facility] [address] [place], [address] MCHC (RBC) [Mass/Vol] 35.0 g/dL Normal 32-36 [facility] Comment on above: Performed By: #### L 100.4500, L100.0500, L500.2500, L503.7505 ####[facility] [address] [place], [address] MCV (RBC) [Entitic vol] 100.6 fL High 81-99 [facility] Comment on above: Performed By: #### L 100.4500, L100.0500, L500.2500, L503.7505 ####[facility] [address] [place], [address] Platelet mean volume (Bld) [Entitic vol] 11.0 fL Normal 6.2-12.0 [facility] Comment on above: Performed By: #### L 100.4500, L100.0500, L500.2500, L503.7505 ####[facility] [address] [place], [address] Platelets (Bld) [#/Vol] 209 10*3/uL Normal 150-450 [facility] Comment on above: Performed By: #### L 100.4500, L100.0500, L500.2500, L503.7505 ####[facility] [address] [place], [address] RBC (Bld) [#/Vol] 3.49 10*6/uL Low 4.2-5.4 [facility] Comment on above: Performed By: #### L 100.4500, L100.0500, L500.2500, L503.7505 ####[facility] [address] [place], [address] WBC (Bld) [#/Vol] 6.5 10*3/uL Normal 4.4-11.0 [facility] Comment on above: Performed By: #### L 100.4500, L100.0500, L500.2500, L503.7505 ####[facility] [address] [place], [address] Carbon dioxide, total [Moles /volume] in Central venous bloodOrdered By: Asim Ireland on 08-14-2024 CO2 [Moles/Vol] 25.7 mmol/L 21.0-32.0 [facility] Cardiology Visit Reporton Cardiology Visit Report Normal [facility] Chloride assayOrdered By: Ping Ireland on 08-14-2024 Chloride [Moles/Vol] 104 mmol/L 98-108 [facility] Differential Commenton 08-14 SMEAR COMMENT COMMENT Normal [facility] Comment on above: Result Comment: 2+ A NISO. Performed By: #### L 100.4500, L100.0500, L500.2500, L503.7505 ####[facility] [address] [place], [address] Erythrocyte distribution wid th ratioOrdered By: Asim Ireland on 08-14-2024 Erythrocyte distribution width (RBC) [Ratio] 29.9 % High 11.6-14.6 [facility] Erythrocyte distribution wid th standard deviationOrdered By: Asim Ireland on 08-14-2024 Erythrocyte distribution width (RBC) [Entitic vol] 107.4 fL High 35.1-43.9 [facility] Erythrocyte distribution width (RBC) [Ratio] 107.4 fl High 35.1-43.9 [facility] GFR/1.73 sq M.predicted della g non-blacks MDRD (S/P/Bld) [Vol rate/Area]Ordered By: Asim Ireland on 08-14-2024 Estimated GFR (MDRD) Non-Af Amer 69 >60 [facility] Comment on above: mL/min/1.73m2 CKD-EP I Creatinine Equation (2020) Glomerular filtration rate ( GFR) estimation/1.73 sq m using serum, plasma, or whole bOrdered By: Asim Ireland on 08-14-2024 GFR/1.73 sq M.predicted among non-blacks MDRD (S/P/Bld) [Vol rate/Area] 69 mL/min/{1.73_m2} >60 [facility] Comment on above: mL/min/1.73m2 CKD-EP I Creatinine Equation (2020) Hematocrit Auto (Bld) [Volum e fraction]Ordered By: Asim Ireland on 08-14-2024 Hematocrit (Bld) [Volume fraction] 35.1 % Low 37-47 [facility] Hemoglobin measurementOrdere d By: Asim Ireland on 08-14-2024 Hemoglobin (Bld) [Mass/Vol] 12.3 g/dL 12.0-15.0 [facility] L503.7505on 08-14-2024 Natriuretic peptide B (Bld) [Mass/Vol] 1562 pg/mL Normal <=1800 [facility] Comment on above: Result Comment: Hear t Failure Unlikely: < 300 pg/mLHeart Failure Likely< 50 Years: > 450 pg/mL50-75 Years: > 900 pg/mL>75 Years: > 1800 pg/mL Performed By: #### L 100.4500, L100.0500, L500.2500, L503.7505 ####[facility] [address] [place], [place], [id number] Laboratory - Chemistry and C hemistry - challengeOrdered By: Asim Ireland on 08-14-2024 Natriuretic peptide B (Bld) [Mass/Vol] 1562 pg/mL <1800 [facility] Comment on above: Heart Failure Unlike ly: < 300 pg/mLHeart Failure Likely< 50 Years: > 450 pg/mL50-75 Years: > 900 pg/mL>75 Years: > 1800 pg/mL MCV (mean corpuscular volume ) determinationOrdered By: Asim Ireland on 08-14-2024 MCV (RBC) [Entitic vol] 100.6 fL High 81-99 [facility] Manual differential comment Ulises (Bld) [Interp]Ordered By: Asim Ireland on 08-14-2024 Differential Comment COMMENT [facility] Comment on above: 2+ ANISO. Mean corpuscular hemoglobin (MCH) determinationOrdered By: Asim Ireland on 08-14-2024 MCH (RBC) [Entitic mass] 35.2 pg High 27.0-32.0 [facility] Mean corpuscular hemoglobin concentration (MCHC) determinationOrdered By: Asim Ireland on 08-14-2024 MCHC (RBC) [Mass/Vol] 35.0 g/dL 32-36 [facility] Mean platelet volume determi nationOrdered By: Asim Ireland on 08-14-2024 Platelet mean volume (Bld) [Entitic vol] 11.0 fL 6.2-12.0 [facility] Platelet countOrdered By: Ping Ireland on 08-14-2024 Platelets (Bld) [#/Vol] 209 10*3/uL 150-450 [facility] Potassium (Unsp spec) [Mass/ Vol]Ordered By: Asim Ireland on 08-14-2024 Potassium [Moles/Vol] 4.0 mmol/L 3.3-5.1 [facility] Comment on above: Hemolysis present, R esults could be affected. Potassium measurement (mass/ volume)Ordered By: Asim Ireland on 08-14-2024 Potassium (Unsp spec) [Mass/Vol] 4.0 mmol/L 3.3-5.1 [facility] Comment on above: Hemolysis present, R esults could be affected. RBC Auto (Bld) [#/Vol]Ordere d By: Asim Ireland on 08-14-2024 RBC (Bld) [#/Vol] 3.49 10*6/uL Low 4.2-5.4 [facility] Serum creatinine measurement (mass/volume)Ordered By: Asim Ireland on 08-14-2024 Creatinine [Mass/Vol] 0.82 mg/dL 0.70-1.20 [facility] Comment on above: Icterus present, Res ults may be affected. Serum glucose measurement (m ass/volume)Ordered By: Asimjosé Ireland on 08-14-2024 Glucose [Mass/Vol] 119 mg/dL High 70-99 [facility] Serum or plasma calcium don urement (mass/volume)Ordered By: [facility] Shu on 08-14-2024 Calcium [Mass/Vol] 9.0 mg/dL 7.6-11.0 [facility] Serum or plasma urea nitroge n measurement (mass/volume)Ordered By: Asim Shu on 08-14-2024 Urea nitrogen [Mass/Vol] 12 mg/dL 4-19 [facility] Sodium levelOrdered By: diana Ireland on 08-14-2024 Sodium [Moles/Vol] 138 mmol/L 133-145 [facility] White blood cell (WBC) count Ordered By: Asim Ireland on 08-14-2024 WBC (Bld) [#/Vol] 6.5 10*3/uL 4.4-11.0 [facility] Gastroenterology Visit Repor ton 06-22-2024 Gastroenterology Visit Report Normal [facility] Vitamin B12on 05-14-2024 Cobalamin (Vitamin B12) [Mass/Vol] 581 pg/mL Normal 211-911 [facility] Comment on above: Order Comment: Order Date: 05/11/24Order Info: 2132-9 - B12 Performed By: #### L 503.6550, L100.0100, L506.0250, L500.3400, L503.0105, L503.6075, L500.2500, L503.6150, L501.5200 ####[facility] [address] [place], [address] Absolute neutrophil countOrd ered By: Blue Lambert on 05-11-2024 Neutrophils (Bld) [#/Vol] 3.2 10*3/uL 2.0-7.7 [facility] Basic Metabolic Profile (BMP )on 05-11-2024 BUN/CRE 18.6 RATIO Normal 10-20 [facility] Comment on above: Order Comment: Order Date: 05/11/24Order Info: 666-05 - BMPOrder Info: 787-05 - LIVEROrder Info: [id number] - MGOrder Info: 2499-11 - TIBCOrder Info: 2497-08 - FEOrder Info: 2275-08 - FEROrder Info: 2283-12 - FOLSN Performed By: #### L 503.6550, L100.0100, L506.0250, L500.3400, L503.0105, L503.6075, L500.2500, L503.6150, L501.5200 ####[facility] [address] [place], [address] CA,Total 9.4 mg/dL Normal 8.5-10.1 [facility] Comment on above: Order Comment: Order Date: 05/11/24Order Info: 666-05 - BMPOrder Info: 787-05 - LIVEROrder Info: - MGOrder Info: 2499-11 - TIBCOrder Info: 2497-08 - FEOrder Info: 2275-08 - FEROrder Info: 2283-12 - FOLSN Performed By: #### L 503.6550, L100.0100, L506.0250, L500.3400, L503.0105, L503.6075, L500.2500, L503.6150, L501.5200 ####[facility] [address] [place], [place], [address](254) Chloride [Moles/Vol] 105 mmol/L Normal 98-107 [facility] Comment on above: Order Comment: Order Date: 05/11/24Order Info: 666-05 - BMPOrder Info: 787-05 - LIVEROrder Info: [id number] - MGOrder Info: 2499-11 - TIBCOrder Info: 2497-08 - FEOrder Info: 2275-08 - FEROrder Info: 2283-12 - FOLSN Performed By: #### L 503.6550, L100.0100, L506.0250, L500.3400, L503.0105, L503.6075, L500.2500, L503.6150, L501.5200 ####[facility] [address] [place], [place], [phone](482) CO2 [Moles/Vol] 28.0 mmol/L Normal 21.0-32.0 [facility] Comment on above: Order Comment: Order Date: 05/11/24Order Info: 666- - BMPOrder Info: 787-05 - LIVEROrder Info: - MGOrder Info: 2499-11 - TIBCOrder Info: 2497-08 - FEOrder Info: 2275-08 - FEROrder Info: 2283-12 - FOLSN Performed By: #### L 503.6550, L100.0100, L506.0250, L500.3400, L503.0105, L503.6075, L500.2500, L503.6150, L501.5200 ####[facility] [address] [place], [place], [address] Creatinine [Mass/Vol] 0.75 mg/dL Normal 0.55-1.02 [facility] Comment on above: Order Comment: Order Date: 05/11/24Order Info: 666-05 - BMPOrder Info: 787-05 - LIVEROrder Info: - MGOrder Info: 2499-11 - TIBCOrder Info: 2497-08 - FEOrder Info: 2275-08 - FEROrder Info: 2283-12 - FOLSN Result Comment: The validity of the calculated GFR GFRAA in patients over70 years has not been determined. Clinical correlation isessential. Performed By: #### L 503.6550, L100.0100, L506.0250, L500.3400, L503.0105, L503.6075, L500.2500, L503.6150, L501.5200 ####[facility] [address] [place], [place], [address] EST GFR - AA 94 mL/min Normal >60 [facility] Comment on above: Order Comment: Order Date: 05/11/24Order Info: 666-05 - BMPOrder Info: 787-05 - LIVEROrder Info: 89943-9 - MGOrder Info: 2499-11 - TIBCOrder Info: 249- - FEOrder Info: 2275-08 - FEROrder Info: 2283-12 - FOLSN Result Comment: Afri can Kosovan GFR Calc Performed By: #### L 503.6550, L100.0100, L506.0250, L500.3400, L503.0105, L503.6075, L500.2500, L503.6150, L501.5200 ####[facility] [address] [place], [place], [id number] GAP 7 Normal 5-15 [facility] Comment on above: Order Comment: Order Date: 05/11/24Order Info: 666-05 - BMPOrder Info: 787-05 - LIVEROrder Info: 83933-3 - MGOrder Info: 2499-11 - TIBCOrder Info: 24912-31 - FEOrder Info: 2275-08 - FEROrder Info: 2283-12 - FOLSN Performed By: #### L 503.6550, L100.0100, L506.0250, L500.3400, L503.0105, L503.6075, L500.2500, L503.6150, L501.5200 ####[facility] [address] [place], [place], [address] GFR/1.73 sq M.predicted among non-blacks MDRD (S/P/Bld) [Vol rate/Area] 77 mL/min/{1.73_m2} Normal >60 [facility] Comment on above: Order Comment: Order Date: 05/11/24Order Info: 666-05 - BMPOrder Info: 787-05 - LIVEROrder Info: 95443-8 - MGOrder Info: 2499-11 - TIBCOrder Info: 24912-31 - FEOrder Info: 2275-08 - FEROrder Info: 8 - FOLSN Result Comment: Non- GFR Calc Performed By: #### L 503.6550, L100.0100, L506.0250, L500.3400, L503.0105, L503.6075, L500.2500, L503.6150, L501.5200 ####[facility] [address] [place], [address] Glucose [Mass/Vol] 88 mg/dL Normal 74-106 [facility] Comment on above: Order Comment: Order Date: 05/11/24Order Info: 666-05 - BMPOrder Info: 787-05 - LIVEROrder Info: - MGOrder Info: 7 - TIBCOrder Info: 2497-08 - FEOrder Info: 2275-08 - FEROrder Info: 2283-12 - FOLSN Performed By: #### L 503.6550, L100.0100, L506.0250, L500.3400, L503.0105, L503.6075, L500.2500, L503.6150, L501.5200 ####[facility] [address] [place], [address] Potassium [Moles/Vol] 3.9 mmol/L Normal 3.5-5.1 [facility] Comment on above: Order Comment: Order Date: 05/11/24Order Info: 666-05 - BMPOrder Info: 787-05 - LIVEROrder Info: 35774-4 - MGOrder Info: 2499-11 - TIBCOrder Info: 2497-08 - FEOrder Info: 2275-08 - FEROrder Info: 2283-12 - FOLSN Performed By: #### L 503.6550, L100.0100, L506.0250, L500.3400, L503.0105, L503.6075, L500.2500, L503.6150, L501.5200 ####[facility] [address] [place], [address] Sodium [Moles/Vol] 140 mmol/L Normal 136-145 [facility] Comment on above: Order Comment: Order Date: 05/11/24Order Info: 666-05 - BMPOrder Info: 787-05 - LIVEROrder Info: 54798-7 - MGOrder Info: 2499-7 - TIBCOrder Info: 24984 - FEOrder Info: 2275-08 - FEROrder Info: 2283-12 - FOLSN Performed By: #### L 503.6550, L100.0100, L506.0250, L500.3400, L503.0105, L503.6075, L500.2500, L503.6150, L501.5200 ####[facility] [address] [place], [place], [address] Urea nitrogen [Mass/Vol] 14 mg/dL Normal 7-18 [facility] Comment on above: Order Comment: Order Date: 05/11/24Order Info: 666-05 - BMPOrder Info: 787-05 - LIVEROrder Info: 05082-7 - MGOrder Info: 2499-11 - TIBCOrder Info: 2498 - FEOrder Info: 2275-08 - FEROrder Info: 2283-12 - FOLSN Performed By: #### L 503.6550, L100.0100, L506.0250, L500.3400, L503.0105, L503.6075, L500.2500, L503.6150, L501.5200 ####[facility] [address] [place], [place], [address] Basophil percentageOrdered B y: Blue Lambert on 05-11-2024 Basophils/100 WBC (Bld) 1.1 % High 0-1 [facility] Bilirubin directOrdered By: Blue Lambert on 05-11-2024 Bilirubin.direct [Mass/Vol] 0.81 mg/dL High 0.00-0.30 [facility] Bilirubin, totalOrdered By: Blue Lambert on 05-11-2024 Bilirubin [Mass/Vol] 4.80 mg/dL High 0.20-1.00 [facility] Comment on above: For patients on eltr ombopag therapy, use of Dimension [place] TBIL is not recommended. Blood urea nitrogen (BUN)/cr eatinine ratioOrdered By: Blue Lambert on 05-11-2024 Urea nitrogen/Creatinine [Mass ratio] 18.6 mg/mg 10-20 [facility] Antonieta cells LM Ql (Bld)Ordere d By: Blue Lambert on 05-11-2024 Warren Cells RARE [facility] CBC W/Diff, Automatedon 04-29 TARGET CELLS 1+ Normal [facility] Comment on above: Order Comment: Order Date: 05/11/24Order Info: 0184- - CBCD Performed By: #### L 503.6550, L100.0100, L506.0250, L500.3400, L503.0105, L503.6075, L500.2500, L503.6150, L501.5200 ####[facility] [address] [place], [place], [address] Anisocytosis Ql (Bld) 2+ Normal [facility] Comment on above: Order Comment: Order Date: 05/11/24Order Info: 018- - CBCD Performed By: #### L 503.6550, L100.0100, L506.0250, L500.3400, L503.0105, L503.6075, L500.2500, L503.6150, L501.5200 ####[facility] [address] [place], [place], [address](442) ANTONIETA CELLS RARE Normal [facility] Comment on above: Order Comment: Order Date: 05/11/24Order Info: 0184- - CBCD Performed By: #### L 503.6550, L100.0100, L506.0250, L500.3400, L503.0105, L503.6075, L500.2500, L503.6150, L501.5200 ####[facility] [address] [place], [address] HYPOCHROMASIA 1+ Normal [facility] Comment on above: Order Comment: Order Date: 05/11/24Order Info: 0184- - CBCD Performed By: #### L 503.6550, L100.0100, L506.0250, L500.3400, L503.0105, L503.6075, L500.2500, L503.6150, L501.5200 ####[facility] [address] [place], [address] POLYCHROMASIA RARE Normal [facility] Comment on above: Order Comment: Order Date: 05/11/24Order Info: 0184- - CBCD Performed By: #### L 503.6550, L100.0100, L506.0250, L500.3400, L503.0105, L503.6075, L500.2500, L503.6150, L501.5200 ####[facility] [address] [place], [address] STOMATOCYTE RARE Normal [facility] Comment on above: Order Comment: Order Date: 05/11/24Order Info: 0184- - CBCD Performed By: #### L 503.6550, L100.0100, L506.0250, L500.3400, L503.0105, L503.6075, L500.2500, L503.6150, L501.5200 ####[facility] [address] [place], [address] SMEAR COMMENT SCANNED Normal [facility] Comment on above: Order Comment: Order Date: 05/11/24Order Info: 0184-1 - CBCD Performed By: #### L 503.6550, L100.0100, L506.0250, L500.3400, L503.0105, L503.6075, L500.2500, L503.6150, L501.5200 ####[facility] [address] [place], [address] Carbon dioxide measurementOr dered By: Blue Lambert on 05-11-2024 CO2 [Moles/Vol] 28.0 mmol/L 21.0-32.0 [facility] Chloride measurementOrdered By: Blue Lambert on 05-11-2024 Chloride [Moles/Vol] 105 mmol/L 98-107 [facility] Eosinophil percentageOrdered By: Blue Lambert on 05-11-2024 Eosinophils/100 WBC (Bld) 1.5 % 0-5 [facility] Erythrocyte distribution wid th (RBC) [Entitic vol]Ordered By: Blue Lambert on 05-11-2024 RDW [facility] Test not performed Erythrocyte distribution wid th (RBC) [Ratio]Ordered By: Blue Lambert on 05-11-2024 RDW Coefficient of Variation [facility] Comment on above: Test not performed Estimated glomerular filtrat ion rate (GFR) AmericanOrdered By: Blue Lambert on 05-11-2024 Estimated GFR (MDRD) Amer 94 mL/min >60 [facility] Comment on above: GFR Calc Ferritinon 05-11-2024 Ferritin [Mass/Vol] 105 ng/mL Normal [facility] Comment on above: Order Comment: Order Date: 05/11/24Order Info: 0667-1 - BMPOrder Info: 0788-1 - LIVEROrder Info: 24035-3 - MGOrder Info: 2500-7 - TIBCOrder Info: 2498-4 - FEOrder Info: 2276-4 - FEROrder Info: 2284-8 - FOLSN Performed By: #### L 503.6550, L100.0100, L506.0250, L500.3400, L503.0105, L503.6075, L500.2500, L503.6150, L501.5200 ####[facility] [address] [place], [place], [address] Ferritin measurementOrdered By: Blue Lambert on 05-11-2024 Ferritin [Mass/Vol] 105 ng/mL 8 [facility] Folates, (Folic Acid)on 04-29 FOLATES 11.90 ng/mL Normal 3.1-55.4 [facility] Comment on above: Order Comment: Order Date: 05/11/24Order Info: 0667-1 - BMPOrder Info: 0788-1 - LIVEROrder Info: 36049-7 - MGOrder Info: 2500-7 - TIBCOrder Info: 2498-4 - FEOrder Info: 227-4 - FEROrder Info: 228-8 - FOLSN Performed By: #### L 503.6550, L100.0100, L506.0250, L500.3400, L503.0105, L503.6075, L500.2500, L503.6150, L501.5200 ####[facility] [address] [place], [address] Folic acid measurementOrdere d By: Blue Lambert on 05-11-2024 Folate 11.90 ng/mL 3.1-55.4 [facility] Glomerular filtration rate ( GFR) estimationOrdered By: Blue Lambert on 05-11-2024 Estimated GFR (MDRD) Non-Af Amer 77 mL/min >60 [facility] Comment on above: Non- GFR Calc Glucose measurementOrdered B y: Blue Lambert on 05-11-2024 Glucose [Mass/Vol] 88 mg/dL 74-106 [facility] Hematocrit Auto (Bld) [Volum e fraction]Ordered By: Blue Lambert on 05-11-2024 Hematocrit (Bld) [Volume fraction] 34.5 % Low 37-47 [facility] Hemoglobin measurementOrdere d By: Blue Lambert on 05-11-2024 Hemoglobin (Bld) [Mass/Vol] 11.5 g/dL Low 12.0-15.0 [facility] Hypochromia Ql (Bld)Ordered By: Blue Lambert on 05-11-2024 Hypochromasia 1+ [facility] Immature granulocytes/100 WB C Auto (Bld)Ordered By: Blue Lambert on 05-11-2024 Immature granulocytes/100 WBC (Bld) 0.400 % 0.0-0.9 [facility] Comment on above: IG% - Immature Granu locytes (promyelocytes, myelocytes and metamyelocytes) > 1% indicates that a LEFT SHIFT is Present. Ironon 05-11-2024 Iron [Mass/Vol] 111 ug/dL Normal 50-170 [facility] Comment on above: Order Comment: Order Date: 05/11/24Order Info: 666-05 - BMPOrder Info: 787-05 - LIVEROrder Info: - MGOrder Info: 2499-11 - TIBCOrder Info: 2497-08 - FEOrder Info: 2275-08 - FEROrder Info: 2283-12 - FOLSN Performed By: #### L 503.6550, L100.0100, L506.0250, L500.3400, L503.0105, L503.6075, L500.2500, L503.6150, L501.5200 ####[facility] [address] [place], [place], [id number] Iron (Unsp spec) [Mass/Mass] Ordered By: Blue Lambert on 05-11-2024 Iron [Mass/Vol] 111 ug/dL 50-170 [facility] Iron Binding Capacity,Totalo n 05-11-2024 TIBC 326 ug/dL Normal 250-450 [facility] Comment on above: Order Comment: Order Date: 05/11/24Order Info: 666-05 - BMPOrder Info: 787-05 - LIVEROrder Info: - MGOrder Info: 2499-11 - TIBCOrder Info: 2497-08 - FEOrder Info: 2275-08 - FEROrder Info: 2283-12 - FOLSN Performed By: #### L 503.6550, L100.0100, L506.0250, L500.3400, L503.0105, L503.6075, L500.2500, L503.6150, L501.5200 ####[facility] [address] [place], [place], [id number] Laboratory - Chemistry and C hemistry - challengeOrdered By: Blue Lambert on 05-11-2024 AST [Catalytic activity/Vol] 19 U/L 15-37 [facility] Laboratory - Hematology and Cell countsOrdered By: Blue Lambert on 05-11-2024 Anisocytosis Ql (Bld) 2+ [facility] Liver Profileon 05-11-2024 Albumin [Mass/Vol] 3.8 g/dL Normal 3.2-5.0 [facility] Comment on above: Order Comment: Order Date: 05/11/24Order Info: 666-05 - BMPOrder Info: 787-05 - LIVEROrder Info: 26780-5 - MGOrder Info: 7 - TIBCOrder Info: 2497-08 - FEOrder Info: 2275-08 - FEROrder Info: 2283-12 - FOLSN Performed By: #### L 503.6550, L100.0100, L506.0250, L500.3400, L503.0105, L503.6075, L500.2500, L503.6150, L501.5200 ####[facility] [address] [place], [address] ALK P 127 U/L High 45-117 [facility] Comment on above: Order Comment: Order Date: 05/11/24Order Info: 666-05 - BMPOrder Info: 787-05 - LIVEROrder Info: [id number] - MGOrder Info: 2499-11 - TIBCOrder Info: 2497-08 - FEOrder Info: [id number] - FEROrder Info: 2283-12 - FOLSN Performed By: #### L 503.6550, L100.0100, L506.0250, L500.3400, L503.0105, L503.6075, L500.2500, L503.6150, L501.5200 ####[facility] [address] [place], [address] ALT [Catalytic activity/Vol] 20 U/L Normal 13-56 [facility] Comment on above: Order Comment: Order Date: 05/11/24Order Info: 666-05 - BMPOrder Info: 787-05 - LIVEROrder Info: 11118-3 - MGOrder Info: 2499-11 - TIBCOrder Info: 2497-08 - FEOrder Info: [id number] - FEROrder Info: 2283-12 - FOLSN Performed By: #### L 503.6550, L100.0100, L506.0250, L500.3400, L503.0105, L503.6075, L500.2500, L503.6150, L501.5200 ####[facility] [address] [place], [place], [id number] AST [Catalytic activity/Vol] 19 U/L Normal 15-37 [facility] Comment on above: Order Comment: Order Date: 05/11/24Order Info: 666-05 - BMPOrder Info: 787-05 - LIVEROrder Info: - MGOrder Info: 2499-11 - TIBCOrder Info: 2497-08 - FEOrder Info: [id number] - FEROrder Info: 2283-12 - FOLSN Performed By: #### L 503.6550, L100.0100, L506.0250, L500.3400, L503.0105, L503.6075, L500.2500, L503.6150, L501.5200 ####[facility] [address] [place], [place], [id number] Bilirubin [Mass/Vol] 4.80 mg/dL High 0.20-1.00 [facility] Comment on above: Order Comment: Order Date: 05/11/24Order Info: 666-05 - BMPOrder Info: 787-05 - LIVEROrder Info: [id number] - MGOrder Info: 2499-11 - TIBCOrder Info: 2497-08 - FEOrder Info: 2275-08 - FEROrder Info: 2283-12 - FOLSN Result Comment: For patients on eltrombopag therapy, use of Dimension [place] TBIL is not recommended. Performed By: #### L 503.6550, L100.0100, L506.0250, L500.3400, L503.0105, L503.6075, L500.2500, L503.6150, L501.5200 ####[facility] [address] [place], [address] Bilirubin.direct [Mass/Vol] 0.81 mg/dL High 0.00-0.30 [facility] Comment on above: Order Comment: Order Date: 05/11/24Order Info: 666-05 - BMPOrder Info: 787-05 - LIVEROrder Info: 26460-2 - MGOrder Info: 7 - TIBCOrder Info: 249-4 - FEOrder Info: 2275-4 - FEROrder Info: 2283-8 - FOLSN Performed By: #### L 503.6550, L100.0100, L506.0250, L500.3400, L503.0105, L503.6075, L500.2500, L503.6150, L501.5200 ####[facility] [address] [place], [address] Globulin (S) [Mass/Vol] 2.4 g/dL Normal 2.2-4.2 [facility] Comment on above: Order Comment: Order Date: 05/11/24Order Info: 666-05 - BMPOrder Info: 787-05 - LIVEROrder Info: 32450-5 - MGOrder Info: 7 - TIBCOrder Info: 2497-4 - FEOrder Info: 4 - FEROrder Info: 8 - FOLSN Performed By: #### L 503.6550, L100.0100, L506.0250, L500.3400, L503.0105, L503.6075, L500.2500, L503.6150, L501.5200 ####[facility] [address] [place], [address] T PROT 6.2 g/dL Low 6.4-8.2 [facility] Comment on above: Order Comment: Order Date: 05/11/24Order Info: 666-05 - BMPOrder Info: 787-05 - LIVEROrder Info: 96912-8 - MGOrder Info: 2499-11 - TIBCOrder Info: 2497-08 - FEOrder Info: 2275-08 - FEROrder Info: 2283-12 - FOLSN Performed By: #### L 503.6550, L100.0100, L506.0250, L500.3400, L503.0105, L503.6075, L500.2500, L503.6150, L501.5200 ####[facility] [address] [place], [place], [id number] Lymphocytes Auto (Unsp spec) [#/Vol]Ordered By: Blue Lambert on 05-11-2024 Lymphocytes (Bld) [#/Vol] 2.51 10*3/uL 0.83-4.51 [facility] Lymphocytes/100 WBC Auto (Un sp spec)Ordered By: Blue Lambert on 05-11-2024 Lymphocytes/100 WBC (Bld) 34.7 % 19-41 [facility] MCV (mean corpuscular volume ) determinationOrdered By: Blue Lambert on 05-11-2024 MCV (RBC) [Entitic vol] 91.8 fL 81-99 [facility] Magnesiumon 05-11-2024 Magnesium [Mass/Vol] 2.5 mg/dL Normal 1.6-2.6 [facility] Comment on above: Order Comment: Order Date: 05/11/24Order Info: 0667-1 - BMPOrder Info: 0788-1 - LIVEROrder Info: - MGOrder Info: 2499-11 - TIBCOrder Info: 2497-08 - FEOrder Info: 2275-08 - FEROrder Info: 2283-12 - FOLSN Performed By: #### L 503.6550, L100.0100, L506.0250, L500.3400, L503.0105, L503.6075, L500.2500, L503.6150, L501.5200 ####[facility] [address] [place], [place], [id number] Magnesium measurementOrdered By: Blue Lambert on 12-13-2024 Magnesium [Mass/Vol] 2.5 mg/dL 1.6-2.6 [facility] Manual differential comment Ulises (Bld) [Interp]Ordered By: Blue Lambert on 05-11-2024 Differential Comment SCANNED [facility] Mean corpuscular hemoglobin (MCH) determinationOrdered By: Blue Lambert on 05-11-2024 MCH (RBC) [Entitic mass] 30.6 pg 27.0-32.0 [facility] Mean corpuscular hemoglobin concentration (MCHC) determinationOrdered By: Blue Lambert on 05-11-2024 MCHC (RBC) [Mass/Vol] 33.3 g/dL 32-36 [facility] Mean platelet volume determi nationOrdered By: Blue Lambert on 05-11-2024 Platelet mean volume (Bld) [Entitic vol] 10.7 fL 6.2-12.0 [facility] Monocyte percentageOrdered B y: Blue Lambert on 05-11-2024 Monocytes/100 WBC (Bld) 18.1 % High 0-10 [facility] Neutrophil percentageOrdered By: Blue Lambert on 05-11-2024 Neutrophils/100 WBC (Bld) 44.2 % Low 47-70 [facility] Nucleated red blood cell per centageOrdered By: Blue Lambert on 05-11-2024 Nucleated RBC/100 WBC (Bld) [Ratio] 0.3 % 0-5 [facility] Platelet countOrdered By: Arely Lambert on 05-11-2024 Platelets (Bld) [#/Vol] 228 10*3/uL 150-450 [facility] Polychromasia LM Ql (Bld)Ord ered By: Blue Lambert on 05-11-2024 Polychromasia RARE [facility] Potassium measurementOrdered By: Blue Lambert on 05-11-2024 Potassium [Moles/Vol] 3.9 mmol/L 3.5-5.1 [facility] RBC Auto (Bld) [#/Vol]Ordere d By: Blue Lambert on 05-11-2024 RBC (Bld) [#/Vol] 3.76 10*6/uL Low 4.2-5.4 [facility] Serum anion gap measurementO rdered By: Blue Lambert on 05-11-2024 Anion gap [Moles/Vol] 7 mmol/L 5-15 [facility] Serum globulin measurementOr dered By: Blue Lambert on 05-11-2024 Globulin (S) [Mass/Vol] 2.4 g/dL 2.2-4.2 [facility] Serum or plasma alanine guajardo otransferase (ALT) measurementOrdered By: Blue Lambert on 05-11-2024 ALT [Catalytic activity/Vol] 20 U/L 13-56 [facility] Serum or plasma albumin don urement (mass/volume)Ordered By: Blue Lambert on 05-11-2024 Albumin [Mass/Vol] 3.8 g/dL 3.2-5.0 [facility] Serum or plasma alkaline pamela sphatase measurementOrdered By: Blue Lambert on 05-11-2024 ALP [Catalytic activity/Vol] 127 U/L High 45-117 [facility] Serum or plasma calcium don urement (mass/volume)Ordered By: Blue Lambert on 05-11-2024 Calcium [Mass/Vol] 9.4 mg/dL 8.5-10.1 [facility] Serum or plasma creatinine m easurement (mass/volume)Ordered By: Blue Lambert on 05-11-2024 Creatinine [Mass/Vol] 0.75 mg/dL 0.55-1.02 [facility] Comment on above: The validity of the calculated GFR & GFRAA in patients over 70 years has not been determined. Clinical correlation is essential. Serum or plasma urea nitroge n measurement (mass/volume)Ordered By: Blue Lambert on 05-11-2024 Urea nitrogen [Mass/Vol] 14 mg/dL 7-18 [facility] Sodium levelOrdered By: Blue Lambert on 05-11-2024 Sodium [Moles/Vol] 140 mmol/L 136-145 [facility] Stomatocytes LM Ql (Bld)Orde red By: Blue Lambert on 05-11-2024 Stomatocytes RARE [facility] TIBCOrdered By: Blue villatoro on 05-11-2024 Total Iron Binding Capacity 326 ug/dL 250-450 [facility] Target cells LM Ql (Bld)Orde red By: Blue Lambert on 05-11-2024 Target Cells 1+ [facility] Total proteinOrdered By: Rinku Lambert on 05-11-2024 Protein [Mass/Vol] 6.2 g/dL Low 6.4-8.2 [facility] Vitamin B12 measurementOrder ed By: Blue Lambert on 05-11-2024 Cobalamin (Vitamin B12) [Mass/Vol] 581 pg/mL 211-911 [facility] White blood cell (WBC) count Ordered By: Blue Lambert on 05-11-2024 WBC (Bld) [#/Vol] 7.2 10*3/uL 4.4-11.0 [facility] CBC W/Diff, Automatedon 11-0 Anisocytosis Ql (Bld) 1+ Normal [facility] Comment on above: Order Comment: Order Date: 03/30/24Order Info: 0184-1 - CBCD Performed By: #### L 503.6150, L501.9520, L501.5200, L100.0100, L500.4050, L506.0400, L501.9985, L503.6550 ####[facility] [address] [place], [address] ANTONIETA CELLS RARE Normal [facility] Comment on above: Order Comment: Order Date: 03/30/24Order Info: 0184-1 - CBCD Performed By: #### L 503.6150, L501.9520, L501.5200, L100.0100, L500.4050, L506.0400, L501.9985, L503.6550 ####[facility] [address] [place], [address] HYPOCHROMASIA 1+ Normal [facility] Comment on above: Order Comment: Order Date: 03/30/24Order Info: 0184-1 - CBCD Performed By: #### L 503.6150, L501.9520, L501.5200, L100.0100, L500.4050, L506.0400, L501.9985, L503.6550 ####[facility] [address] [place], [address] PLT EST ADEQUATE Normal ADEQ [facility] Comment on above: Order Comment: Order Date: 03/30/24Order Info: 0184- - CBCD Performed By: #### L 503.6150, L501.9520, L501.5200, L100.0100, L500.4050, L506.0400, L501.9985, L503.6550 ####[facility] [address] [place], [address] SMEAR COMMENT Normal [facility] Comment on above: Order Comment: Order Date: 03/30/24Order Info: [id number] - CBCD Result Comment: ANIS OCYTOSIS Performed By: #### L 503.6150, L501.9520, L501.5200, L100.0100, L500.4050, L506.0400, L501.9985, L503.6550 ####[facility] [address] [place], [place], [phone] Comprehensive Metabolic Prof [facility] 03-30-2024 Albumin [Mass/Vol] 3.7 g/dL Normal 3.2-5.0 [facility] Comment on above: Order Comment: Order Date: 03/30/24Order Info: 0786-1 - CMPOrder Info: 15118-2 - MGOrder Info: 3016-3 - TSHOrder Info: 2498-4 - FEOrder Info: 2276-4 - FEROrder Info: 3024-7 - T4F Performed By: #### L 503.6150, L501.9520, L501.5200, L100.0100, L500.4050, L506.0400, L501.9985, L503.6550 ####[facility] [address] [place], [address] Albumin/Globulin [Mass ratio] 1.5 {ratio} Normal 0.9-2.4 [facility] Comment on above: Order Comment: Order Date: 03/30/24Order Info: 0786-1 - CMPOrder Info: 77469-8 - MGOrder Info: 3015-3 - TSHOrder Info: 2498-4 - FEOrder Info: 227-4 - FEROrder Info: 3024-7 - T4F Performed By: #### L 503.6150, L501.9520, L501.5200, L100.0100, L500.4050, L506.0400, L501.9985, L503.6550 ####[facility] [address] [place], [address] ALK P 118 U/L High 45-117 [facility] Comment on above: Order Comment: Order Date: 03/30/24Order Info: 785-1 - CMPOrder Info: 24099-3 - MGOrder Info: 3015-3 - TSHOrder Info: 249-4 - FEOrder Info: 4 - FEROrder Info: 3024-7 - T4F Performed By: #### L 503.6150, L501.9520, L501.5200, L100.0100, L500.4050, L506.0400, L501.9985, L503.6550 ####[facility] [address] [place], [address] ALT [Catalytic activity/Vol] 19 U/L Normal 13-56 [facility] Comment on above: Order Comment: Order Date: 03/30/24Order Info: 86-1 - CMPOrder Info: 13432-0 - MGOrder Info: 3015-3 - TSHOrder Info: 2498-4 - FEOrder Info: 2276-4 - FEROrder Info: 3024-7 - T4F Performed By: #### L 503.6150, L501.9520, L501.5200, L100.0100, L500.4050, L506.0400, L501.9985, L503.6550 ####[facility] [address] [place], [address] AST [Catalytic activity/Vol] 20 U/L Normal 15-37 [facility] Comment on above: Order Comment: Order Date: 03/30/24Order Info: 07-1 - CMPOrder Info: 93987-3 - MGOrder Info: 3015-3 - TSHOrder Info: 24984 - FEOrder Info: 2275-08 - FEROrder Info: 7 - T4F Performed By: #### L 503.6150, L501.9520, L501.5200, L100.0100, L500.4050, L506.0400, L501.9985, L503.6550 ####[facility] [address] [place], [place], [phone] Bilirubin [Mass/Vol] 4.10 mg/dL High 0.20-1.00 [facility] Comment on above: Order Comment: Order Date: 03/30/24Order Info: 785- - CMPOrder Info: 14490-6 - MGOrder Info: 3015-07 - TSHOrder Info: 2497-08 - FEOrder Info: 2275-08 - FEROrder Info: 3023-11 - T4F Result Comment: For patients on eltrombopag therapy, use of Dimension [place] TBIL is not recommended. Performed By: #### L 503.6150, L501.9520, L501.5200, L100.0100, L500.4050, L506.0400, L501.9985, L503.6550 ####[facility] [address] [place], [place], [phone] BUN/CRE 17.3 RATIO Normal 10-20 [facility] Comment on above: Order Comment: Order Date: 03/30/24Order Info: 07-1 - CMPOrder Info: 53388-1 - MGOrder Info: 3 - TSHOrder Info: 2497-08 - FEOrder Info: 2275-08 - FEROrder Info: 7 - T4F Performed By: #### L 503.6150, L501.9520, L501.5200, L100.0100, L500.4050, L506.0400, L501.9985, L503.6550 ####[facility] [address] [place], [address] CA,Total 9.1 mg/dL Normal 8.5-10.1 [facility] Comment on above: Order Comment: Order Date: 03/30/24Order Info: 0786-1 - CMPOrder Info: 46687-4 - MGOrder Info: 3016-3 - TSHOrder Info: 2498-4 - FEOrder Info: 2276-4 - FEROrder Info: 3024-7 - T4F Performed By: #### L 503.6150, L501.9520, L501.5200, L100.0100, L500.4050, L506.0400, L501.9985, L503.6550 ####[facility] [address] [place], [address] Chloride [Moles/Vol] 105 mmol/L Normal 98-107 [facility] Comment on above: Order Comment: Order Date: 03/30/24Order Info: 0786-1 - CMPOrder Info: 21650-8 - MGOrder Info: 3016-3 - TSHOrder Info: 2498-4 - FEOrder Info: 2276-4 - FEROrder Info: 3024-7 - T4F Performed By: #### L 503.6150, L501.9520, L501.5200, L100.0100, L500.4050, L506.0400, L501.9985, L503.6550 ####[facility] [address] [place], [address] CO2 [Moles/Vol] 27.0 mmol/L Normal 21.0-32.0 [facility] Comment on above: Order Comment: Order Date: 03/30/24Order Info: 0786-1 - CMPOrder Info: 30144-6 - MGOrder Info: 3016-3 - TSHOrder Info: 2498-4 - FEOrder Info: 2276-4 - FEROrder Info: 3024-7 - T4F Performed By: #### L 503.6150, L501.9520, L501.5200, L100.0100, L500.4050, L506.0400, L501.9985, L503.6550 ####[facility] [address] [place], [address] Creatinine [Mass/Vol] 0.81 mg/dL Normal 0.55-1.02 [facility] Comment on above: Order Comment: Order Date: 03/30/24Order Info: 07-1 - CMPOrder Info: 04265-4 - MGOrder Info: 3015-3 - TSHOrder Info: 24912-31 - FEOrder Info: 2275-08 - FEROrder Info: 3027 - T4F Result Comment: The validity of the calculated GFR GFRAA in patients over70 years has not been determined. Clinical correlation isessential. Performed By: #### L 503.6150, L501.9520, L501.5200, L100.0100, L500.4050, L506.0400, L501.9985, L503.6550 ####[facility] [address] [place], [address] EST GFR - AA 86 mL/min Normal >60 [facility] Comment on above: Order Comment: Order Date: 03/30/24Order Info: 07-1 - CMPOrder Info: 11276-2 - MGOrder Info: 3 - TSHOrder Info: 2497-08 - FEOrder Info: 4 - FEROrder Info: 3023-7 - T4F Result Comment: Afri can Kosovan GFR Calc Performed By: #### L 503.6150, L501.9520, L501.5200, L100.0100, L500.4050, L506.0400, L501.9985, L503.6550 ####[facility] [address] [place], [address] GAP 6 Normal 5-15 [facility] Comment on above: Order Comment: Order Date: 03/30/24Order Info: 07-1 - CMPOrder Info: 60288-9 - MGOrder Info: 3015-07 - TSHOrder Info: 2497-08 - FEOrder Info: 2275-08 - FEROrder Info: 3023-11 - T4F Performed By: #### L 503.6150, L501.9520, L501.5200, L100.0100, L500.4050, L506.0400, L501.9985, L503.6550 ####[facility] [address] [place], [place], [phone](378) GFR/1.73 sq M.predicted among non-blacks MDRD (S/P/Bld) [Vol rate/Area] 71 mL/min/{1.73_m2} Normal >60 [facility] Comment on above: Order Comment: Order Date: 03/30/24Order Info: 07 - CMPOrder Info: - MGOrder Info: 3015-07 - TSHOrder Info: 2497-08 - FEOrder Info: 2275-08 - FEROrder Info: 3023-11 - T4F Result Comment: Non- GFR Calc Performed By: #### L 503.6150, L501.9520, L501.5200, L100.0100, L500.4050, L506.0400, L501.9985, L503.6550 ####[facility] [address] [place], [place], [address](042) Globulin (S) [Mass/Vol] 2.5 g/dL Normal 2.2-4.2 [facility] Comment on above: Order Comment: Order Date: 03/30/24Order Info: 07-1 - CMPOrder Info: - MGOrder Info: 3015-07 - TSHOrder Info: 2497-08 - FEOrder Info: 2275-08 - FEROrder Info: 3023-11 - T4F Performed By: #### L 503.6150, L501.9520, L501.5200, L100.0100, L500.4050, L506.0400, L501.9985, L503.6550 ####[facility] [address] [place], [address] Glucose [Mass/Vol] 124 mg/dL High 74-106 [facility] Comment on above: Order Comment: Order Date: 03/30/24Order Info: 0786-1 - CMPOrder Info: 92022-7 - MGOrder Info: 6-3 - TSHOrder Info: 2498-4 - FEOrder Info: 227-4 - FEROrder Info: 3024-7 - T4F Result Comment: Fast ing Glucose result from 100 to 125 mg/dLsuggests IMPAIRED HOMEOSTASIS per A.D.A. criteria. Performed By: #### L 503.6150, L501.9520, L501.5200, L100.0100, L500.4050, L506.0400, L501.9985, L503.6550 ####[facility] [address] [place], [address] Potassium [Moles/Vol] 3.7 mmol/L Normal 3.5-5.1 [facility] Comment on above: Order Comment: Order Date: 03/30/24Order Info: 07- - CMPOrder Info: 70031-9 - MGOrder Info: 3015-3 - TSHOrder Info: 2498-4 - FEOrder Info: 2275-4 - FEROrder Info: 3024-7 - T4F Performed By: #### L 503.6150, L501.9520, L501.5200, L100.0100, L500.4050, L506.0400, L501.9985, L503.6550 ####[facility] [address] [place], [address] Sodium [Moles/Vol] 138 mmol/L Normal 136-145 [facility] Comment on above: Order Comment: Order Date: 03/30/24Order Info: 0786-1 - CMPOrder Info: 36295-8 - MGOrder Info: 6-3 - TSHOrder Info: 2498-4 - FEOrder Info: 227-4 - FEROrder Info: 3024-7 - T4F Performed By: #### L 503.6150, L501.9520, L501.5200, L100.0100, L500.4050, L506.0400, L501.9985, L503.6550 ####[facility] [address] [place], [place], [phone](617) T PROT 6.2 g/dL Low 6.4-8.2 [facility] Comment on above: Order Comment: Order Date: 03/30/24Order Info: 86-1 - CMPOrder Info: 21938-3 - MGOrder Info: 3016-3 - TSHOrder Info: 2498-4 - FEOrder Info: 227-4 - FEROrder Info: 3024-7 - T4F Performed By: #### L 503.6150, L501.9520, L501.5200, L100.0100, L500.4050, L506.0400, L501.9985, L503.6550 ####[facility] [address] [place], [address] Urea nitrogen [Mass/Vol] 14 mg/dL Normal 7-18 [facility] Comment on above: Order Comment: Order Date: 03/30/24Order Info: 785-1 - CMPOrder Info: 45360-7 - MGOrder Info: 6-3 - TSHOrder Info: 2498-4 - FEOrder Info: 227-4 - FEROrder Info: 3024-7 - T4F Performed By: #### L 503.6150, L501.9520, L501.5200, L100.0100, L500.4050, L506.0400, L501.9985, L503.6550 ####[facility] [address] [place], [place], [phone](316) Ferritinon 03-30-2024 Ferritin [Mass/Vol] 90 ng/mL Normal 8-252 [facility] Comment on above: Order Comment: Order Date: 03/30/24Order Info: 86-1 - CMPOrder Info: 63762-5 - MGOrder Info: 3016-3 - TSHOrder Info: 2497-08 - FEOrder Info: 2275-08 - FEROrder Info: 7 - T4F Performed By: #### L 503.6150, L501.9520, L501.5200, L100.0100, L500.4050, L506.0400, L501.9985, L503.6550 ####[facility] [address] [place], [place], [address](162) Hemoglobin A1con 03-30-2024 HbA1c (Bld) [Mass fraction] 5.6 % Normal 3.8-5.6 [facility] Comment on above: Order Comment: Order Date: 03/30/24Order Info: 4548-4 - A1C Result Comment: Norm al < 5.7 % Prediabetic 5.7 - 6.4 % Diabetic >or= 6.5 % Please note range changes. Performed By: #### L 503.6150, L501.9520, L501.5200, L100.0100, L500.4050, L506.0400, L501.9985, L503.6550 ####[facility] [address] [place], [place], [phone](322) Ironon 03-30-2024 Iron [Mass/Vol] 106 ug/dL Normal 50-170 [facility] Comment on above: Order Comment: Order Date: 03/30/24Order Info: 0786-1 - CMPOrder Info: 03526-6 - MGOrder Info: 3015-07 - TSHOrder Info: 2497-08 - FEOrder Info: 2275-08 - FEROrder Info: 7 - T4F Performed By: #### L 503.6150, L501.9520, L501.5200, L100.0100, L500.4050, L506.0400, L501.9985, L503.6550 ####[facility] [address] [place], [place], [address] Magnesiumon 03-30-2024 Magnesium [Mass/Vol] 2.3 mg/dL Normal 1.6-2.6 [facility] Comment on above: Order Comment: Order Date: 03/30/24Order Info: 0786-1 - CMPOrder Info: 03431-4 - MGOrder Info: 3 - TSHOrder Info: 24984 - FEOrder Info: 2274 - FEROrder Info: 3024-7 - T4F Performed By: #### L 503.6150, L501.9520, L501.5200, L100.0100, L500.4050, L506.0400, L501.9985, L503.6550 ####[facility] [address] [place], [place], [phone] T4 Free Directon 03-30-2024 T4 FREE DIRECT 1.53 ng/dL High 0.76-1.46 [facility] Comment on above: Order Comment: Order Date: 03/30/24Order Info: 07-1 - CMPOrder Info: - MGOrder Info: 3015-07 - TSHOrder Info: 24912-31 - FEOrder Info: 2275-08 - FEROrder Info: 3024-7 - T4F Performed By: #### L 503.6150, L501.9520, L501.5200, L100.0100, L500.4050, L506.0400, L501.9985, L503.6550 ####[facility] [address] [place], [place], [phone] Thyroid Stim Hormone (TSH)on 03-30-2024 TSH 3.470 uIU/mL Normal 0.358-3.740 [facility] Comment on above: Order Comment: Order Date: 03/30/24Order Info: 07-1 - CMPOrder Info: 21477-6 - MGOrder Info: 3 - TSHOrder Info: 2494 - FEOrder Info: 227-4 - FEROrder Info: 3024-7 - T4F Performed By: #### L 503.6150, L501.9520, L501.5200, L100.0100, L500.4050, L506.0400, L501.9985, L503.6550 ####[facility] [address] [place], [address] L5000.0012on 03-17-2024 Vitamin B12 Normal [facility] Comment on above: Result Comment: TEST RESULTS LIMITS Vitamin B12 1685 High pg/mL 232-1245 ___ TESTING PERFORMED AT [facility]. ORIGINAL REPORT ON FILE IN LAB CONTAINS ADDITIONAL TEST SITE INFORMATION. Performed By: #### L 500.2500, L100.0100, L506.0250, L503.6550, L503.6030, L500.3400, L5000.0012 ####[facility] [address] [place], [address] Basic Metabolic Profile (BMP )on 03-14-2024 BUN/CRE 13.1 RATIO Normal 03-18 [facility] Comment on above: Order Comment: N Performed By: #### L 500.2500, L100.0100, L506.0250, L503.6550, L503.6030, L500.3400, L5000.0012 ####[facility] [address] [place], [address] CA,Total 9.3 mg/dL Normal 8.5-10.1 [facility] Comment on above: Order Comment: N Performed By: #### L 500.2500, L100.0100, L506.0250, L503.6550, L503.6030, L500.3400, L5000.0012 ####[facility] [address] [place], [address] Chloride [Moles/Vol] 104 mmol/L Normal 98-107 [facility] Comment on above: Order Comment: N Performed By: #### L 500.2500, L100.0100, L506.0250, L503.6550, L503.6030, L500.3400, L5000.0012 ####[facility] [address] [place], [address] CO2 [Moles/Vol] 28.0 mmol/L Normal 21.0-32.0 [facility] Comment on above: Order Comment: N Performed By: #### L 500.2500, L100.0100, L506.0250, L503.6550, L503.6030, L500.3400, L5000.0012 ####[facility] [address] [place], [address] Creatinine [Mass/Vol] 0.76 mg/dL Normal 0.55-1.02 [facility] Comment on above: Order Comment: N Result Comment: The validity of the calculated GFR GFRAA in patients over70 years has not been determined. Clinical correlation isessential. Performed By: #### L 500.2500, L100.0100, L506.0250, L503.6550, L503.6030, L500.3400, L5000.0012 ####[facility] [address] [place], [address] EST GFR - AA 92 mL/min Normal >60 [facility] Comment on above: Order Comment: N Result Comment: Afri can Kosovan GFR Calc Performed By: #### L 500.2500, L100.0100, L506.0250, L503.6550, L503.6030, L500.3400, L5000.0012 ####[facility] [address] [place], [address] GAP 6 Normal 5-15 [facility] Comment on above: Order Comment: N Performed By: #### L 500.2500, L100.0100, L506.0250, L503.6550, L503.6030, L500.3400, L5000.0012 ####[facility] [address] [place], [address] GFR/1.73 sq M.predicted among non-blacks MDRD (S/P/Bld) [Vol rate/Area] 76 mL/min/{1.73_m2} Normal >60 [facility] Comment on above: Order Comment: N Result Comment: Non- GFR Calc Performed By: #### L 500.2500, L100.0100, L506.0250, L503.6550, L503.6030, L500.3400, L5000.0012 ####[facility] [address] [place], [address] Glucose [Mass/Vol] 118 mg/dL High 74-106 [facility] Comment on above: Order Comment: N Result Comment: Fast ing Glucose result from 100 to 125 mg/dLsuggests IMPAIRED HOMEOSTASIS per A.D.A. criteria. Performed By: #### L 500.2500, L100.0100, L506.0250, L503.6550, L503.6030, L500.3400, L5000.0012 ####[facility] [address] [place], [address] Potassium [Moles/Vol] 3.7 mmol/L Normal 3.5-5.1 [facility] Comment on above: Order Comment: N Performed By: #### L 500.2500, L100.0100, L506.0250, L503.6550, L503.6030, L500.3400, L5000.0012 ####[facility] [address] [place], [address] Sodium [Moles/Vol] 138 mmol/L Normal 136-145 [facility] Comment on above: Order Comment: N Performed By: #### L 500.2500, L100.0100, L506.0250, L503.6550, L503.6030, L500.3400, L5000.0012 ####[facility] [facility] [address] [place], [address] Urea nitrogen [Mass/Vol] 10 mg/dL Normal 7-18 [facility] Comment on above: Order Comment: N Performed By: #### L 500.2500, L100.0100, L506.0250, L503.6550, L503.6030, L500.3400, L5000.0012 ####[facility] [address] [place], [address] CBC W/Diff, Automatedon 10- CRENATED RBC 1+ Normal [facility] Comment on above: Performed By: #### L 500.2500, L100.0100, L506.0250, L503.6550, L503.6030, L500.3400, L5000.0012 ####[facility] [address] [place], [address] TARGET CELLS 2+ Normal [facility] Comment on above: Performed By: #### L 500.2500, L100.0100, L506.0250, L503.6550, L503.6030, L500.3400, L5000.0012 ####[facility] [address] [place], [address] Anisocytosis Ql (Bld) 3+ Normal [facility] Comment on above: Performed By: #### L 500.2500, L100.0100, L506.0250, L503.6550, L503.6030, L500.3400, L5000.0012 ####[facility] [address] [place], [address] HYPOCHROMASIA 3+ Normal [facility] Comment on above: Performed By: #### L 500.2500, L100.0100, L506.0250, L503.6550, L503.6030, L500.3400, L5000.0012 ####[facility] [address] [place], [place], [address] SMEAR COMMENT SCANNED Normal [facility] Comment on above: Performed By: #### L 500.2500, L100.0100, L506.0250, L503.6550, L503.6030, L500.3400, L5000.0012 ####[facility] [address] [place], [address] Ferritinon 03-14-2024 Ferritin [Mass/Vol] 85 ng/mL Normal 8-252 [facility] Comment on above: Order Comment: N Performed By: #### L 500.2500, L100.0100, L506.0250, L503.6550, L503.6030, L500.3400, L5000.0012 ####[facility] [address] [place], [place], [address] Folates, (Folic Acid)on 02-27 FOLATES 13.80 ng/mL Normal 3.1-55.4 [facility] Comment on above: Order Comment: N Performed By: #### L 500.2500, L100.0100, L506.0250, L503.6550, L503.6030, L500.3400, L5000.0012 ####[facility] [address] [place], [place], [address] Gastroenterology Visit Repor ton 03-14-2024 Gastroenterology Visit Report Normal [facility] Iron+Iron Binding Capacityon 03-14-2024 Iron [Mass/Vol] 44 ug/dL Low 50-170 [facility] Comment on above: Order Comment: N Performed By: #### L 500.2500, L100.0100, L506.0250, L503.6550, L503.6030, L500.3400, L5000.0012 ####[facility] [address] [place], [address] IRON SATURATION 10.2 Low 15.0-55.0 [facility] Comment on above: Order Comment: N Performed By: #### L 500.2500, L100.0100, L506.0250, L503.6550, L503.6030, L500.3400, L5000.0012 ####[facility] [address] [place], [address] TIBC 432 ug/dL Normal 250-450 [facility] Comment on above: Order Comment: N Performed By: #### L 500.2500, L100.0100, L506.0250, L503.6550, L503.6030, L500.3400, L5000.0012 ####[facility] [address] [place], [address] Liver Profileon 03-14-2024 Albumin [Mass/Vol] 3.8 g/dL Normal 3.2-5.0 [facility] Comment on above: Order Comment: N Performed By: #### L 500.2500, L100.0100, L506.0250, L503.6550, L503.6030, L500.3400, L5000.0012 ####[facility] [address] [place], [address] ALK P 123 U/L High 45-117 [facility] Comment on above: Order Comment: N Performed By: #### L 500.2500, L100.0100, L506.0250, L503.6550, L503.6030, L500.3400, L5000.0012 ####[facility] [address] [place], [address] ALT [Catalytic activity/Vol] 16 U/L Normal 13-56 [facility] Comment on above: Order Comment: N Performed By: #### L 500.2500, L100.0100, L506.0250, L503.6550, L503.6030, L500.3400, L5000.0012 ####[facility] [address] [place], [address] AST [Catalytic activity/Vol] 17 U/L Normal 15-37 [facility] Comment on above: Order Comment: N Performed By: #### L 500.2500, L100.0100, L506.0250, L503.6550, L503.6030, L500.3400, L5000.0012 ####[facility] [address] [place], [address] Bilirubin [Mass/Vol] 3.60 mg/dL High 0.20-1.00 [facility] Comment on above: Order Comment: N Result Comment: For patients on eltrombopag therapy, use of Dimension [place] TBIL is not recommended. Performed By: #### L 500.2500, L100.0100, L506.0250, L503.6550, L503.6030, L500.3400, L5000.0012 ####[facility] [address] [place], [address] Bilirubin.direct [Mass/Vol] 0.86 mg/dL High 0.00-0.30 [facility] Comment on above: Order Comment: N Performed By: #### L 500.2500, L100.0100, L506.0250, L503.6550, L503.6030, L500.3400, L5000.0012 ####[facility] [address] [place], [address] Globulin (S) [Mass/Vol] 2.3 g/dL Normal 2.2-4.2 [facility] Comment on above: Order Comment: N Performed By: #### L 500.2500, L100.0100, L506.0250, L503.6550, L503.6030, L500.3400, L5000.0012 ####[facility] [address] [place], [address] T PROT 6.1 g/dL Low 6.4-8.2 [facility] Comment on above: Order Comment: N Performed By: #### L 500.2500, L100.0100, L506.0250, L503.6550, L503.6030, L500.3400, L5000.0012 ####[facility] [address] [place], [address] CBC W/Diff, Automatedon 10-0 Absolute Neut Normal 2.0-7.7 [facility] Comment on above: Result Comment: Canc elled via OM: Order cancelled - Patient discharged Performed By: #### L 100.0100 ####[facility] [address] [place], [address] HCT Normal 37-47 [facility] Comment on above: Result Comment: Canc elled via OM: Order cancelled - Patient discharged Performed By: #### L 100.0100 ####[facility] [address] [place], [address] HGB Normal 12.0-15.0 [facility] Comment on above: Result Comment: Canc elled via OM: Order cancelled - Patient discharged Performed By: #### L 100.0100 ####[facility] [address] [place], [address] MCH Normal 27.0-32.0 [facility] Comment on above: Result Comment: Canc elled via OM: Order cancelled - Patient discharged Performed By: #### L 100.0100 ####[facility] [address] [place], [address] MCHC Normal 32-36 [facility] Comment on above: Result Comment: Canc elled via OM: Order cancelled - Patient discharged Performed By: #### L 100.0100 ####[facility] [address] [place], [address] MCV Normal 81-99 [facility] Comment on above: Result Comment: Canc elled via OM: Order cancelled - Patient discharged Performed By: #### L 100.0100 ####[facility] [address] [place], [address] NEUT% Normal 47-70 [facility] Comment on above: Result Comment: Canc elled via OM: Order cancelled - Patient discharged Performed By: #### L 100.0100 ####[facility] [address] [place], [address] PLT Normal 150-450 [facility] Comment on above: Result Comment: Canc elled via OM: Order cancelled - Patient discharged Performed By: #### L 100.0100 ####[facility] [address] [place], [address] RBC Normal 4.2-5.4 [facility] Comment on above: Result Comment: Canc elled via OM: Order cancelled - Patient discharged Performed By: #### L 100.0100 ####[facility] [address] [place], [address] RDW CV Normal 11.6-14.6 [facility] Comment on above: Result Comment: Canc elled via OM: Order cancelled - Patient discharged Performed By: #### L 100.0100 ####[facility] [address] [place], [address] RDW SD Normal 35.1-43.9 [facility] Comment on above: Result Comment: Canc elled via OM: Order cancelled - Patient discharged Performed By: #### L 100.0100 ####[facility] [address] [place], [address] WBC Normal 4.4-11.0 [facility] Comment on above: Result Comment: Canc elled via OM: Order cancelled - Patient discharged Performed By: #### L 100.0100 ####[facility] [address] [place], [address] CBC W/Diff, Automatedon 10-0 -2023 Absolute Neut Normal 2.0-7.7 [facility] Comment on above: Result Comment: Canc elled via OM: Order cancelled - Patient discharged Performed By: #### L 100.0100 ####[facility] [address] [place], [address] HCT Normal 37-47 [facility] Comment on above: Result Comment: Canc elled via OM: Order cancelled - Patient discharged Performed By: #### L 100.0100 ####[facility] [address] [place], [address] HGB Normal 12.0-15.0 [facility] Comment on above: Result Comment: Canc elled via OM: Order cancelled - Patient discharged Performed By: #### L 100.0100 ####[facility] [address] [place], [address] MCH Normal 27.0-32.0 [facility] Comment on above: Result Comment: Canc elled via OM: Order cancelled - Patient discharged Performed By: #### L 100.0100 ####[facility] [address] [place], [address] MCHC Normal 32-36 [facility] Comment on above: Result Comment: Canc elled via OM: Order cancelled - Patient discharged Performed By: #### L 100.0100 ####[facility] [address] [place], [address] MCV Normal 81-99 [facility] Comment on above: Result Comment: Canc elled via OM: Order cancelled - Patient discharged Performed By: #### L 100.0100 ####[facility] [address] [place], [address] NEUT% Normal 47-70 [facility] Comment on above: Result Comment: Canc elled via OM: Order cancelled - Patient discharged Performed By: #### L 100.0100 ####[facility] [address] [place], [address] PLT Normal 150-450 [facility] Comment on above: Result Comment: Canc elled via OM: Order cancelled - Patient discharged Performed By: #### L 100.0100 ####[facility] [address] [place], [address] RBC Normal 4.2-5.4 [facility] Comment on above: Result Comment: Canc elled via OM: Order cancelled - Patient discharged Performed By: #### L 100.0100 ####[facility] [address] [place], [address] RDW CV Normal 11.6-14.6 [facility] Comment on above: Result Comment: Canc elled via OM: Order cancelled - Patient discharged Performed By: #### L 100.0100 ####[facility] [address] [place], [address] RDW SD Normal 35.1-43.9 [facility] Comment on above: Result Comment: Canc elled via OM: Order cancelled - Patient discharged Performed By: #### L 100.0100 ####[facility] [address] [place], [address] WBC Normal 4.4-11.0 [facility] Comment on above: Result Comment: Canc elled via OM: Order cancelled - Patient discharged Performed By: #### L 100.0100 ####[facility] [address] [place], [address] Cardiology Visit Reporton Cardiology Visit Report Normal [facility] CBC W/Diff, Automatedon 10-0 CRENATED RBC RARE Normal [facility] Comment on above: Order Comment: Order Date: 03/05/24Order Info: 183- - CBCD Performed By: #### L 500.4050, L100.0100 ####[facility] [address] [place], [address] SCHISTOCYTES RARE Normal [facility] Comment on above: Order Comment: Order Date: 03/05/24Order Info: 4- - CBCD Performed By: #### L 500.4050, L100.0100 ####[facility] [address] [place], [address] Anisocytosis Ql (Bld) 2+ Normal [facility] Comment on above: Order Comment: Order Date: 03/05/24Order Info: 183- - CBCD Performed By: #### L 500.4050, L100.0100 ####[facility] [address] [place], [address] HYPOCHROMASIA 2+ Normal [facility] Comment on above: Order Comment: Order Date: 03/05/24Order Info: 183- - CBCD Performed By: #### L 500.4050, L100.0100 ####[facility] [address] [place], [address] SMEAR COMMENT SCANNED Normal [facility] Comment on above: Order Comment: Order Date: 03/05/24Order Info: 183- - CBCD Performed By: #### L 500.4050, L100.0100 ####[facility] [address] [place], [address] TARGET CELLS 2+ Normal [facility] Comment on above: Order Comment: Order Date: 03/05/24Order Info: 4-1 - CBCD Performed By: #### L 500.4050, L100.0100 ####[facility] [address] [place], [address] Absolute Neut Normal 2.0-7.7 [facility] Comment on above: Result Comment: Canc elled via OM: Order cancelled - Patient discharged Performed By: #### L 100.0100 ####[facility] [address] [place], [address] HCT Normal 37-47 [facility] Comment on above: Result Comment: Canc elled via OM: Order cancelled - Patient discharged Performed By: #### L 100.0100 ####[facility] [address] [place], [address] HGB Normal 12.0-15.0 [facility] Comment on above: Result Comment: Canc elled via OM: Order cancelled - Patient discharged Performed By: #### L 100.0100 ####[facility] [address] [place], [address] MCH Normal 27.0-32.0 [facility] Comment on above: Result Comment: Canc elled via OM: Order cancelled - Patient discharged Performed By: #### L 100.0100 ####[facility] [address] [place], [address] MCHC Normal 32-36 [facility] Comment on above: Result Comment: Canc elled via OM: Order cancelled - Patient discharged Performed By: #### L 100.0100 ####[facility] [address] [place], [address] MCV Normal 81-99 [facility] Comment on above: Result Comment: Canc elled via OM: Order cancelled - Patient discharged Performed By: #### L 100.0100 ####[facility] [address] [place], [address] NEUT% Normal 47-70 [facility] Comment on above: Result Comment: Canc elled via OM: Order cancelled - Patient discharged Performed By: #### L 100.0100 ####[facility] [address] [place], [address] PLT Normal 150-450 [facility] Comment on above: Result Comment: Canc elled via OM: Order cancelled - Patient discharged Performed By: #### L 100.0100 ####[facility] [address] [place], [address] RBC Normal 4.2-5.4 [facility] Comment on above: Result Comment: Canc elled via OM: Order cancelled - Patient discharged Performed By: #### L 100.0100 ####[facility] [address] [place], [address] RDW CV Normal 11.6-14.6 [facility] Comment on above: Result Comment: Canc elled via OM: Order cancelled - Patient discharged Performed By: #### L 100.0100 ####[facility] [address] [place], [address] RDW SD Normal 35.1-43.9 [facility] Comment on above: Result Comment: Canc elled via OM: Order cancelled - Patient discharged Performed By: #### L 100.0100 ####[facility] [address] [place], [address] WBC Normal 4.4-11.0 [facility] Comment on above: Result Comment: Canc elled via OM: Order cancelled - Patient discharged Performed By: #### L 100.0100 ####[facility] [address] [place], [address] Comprehensive Metabolic Prof ilon 03-05-2024 Albumin [Mass/Vol] 3.3 g/dL Normal 3.2-5.0 [facility] Comment on above: Order Comment: Order Date: 03/05/24Order Info: 0786-1 - CMP Performed By: #### L 500.4050, L100.0100 ####[facility] [address] [place], [address] Albumin/Globulin [Mass ratio] 1.4 {ratio} Normal 0.9-2.4 [facility] Comment on above: Order Comment: Order Date: 03/05/24Order Info: 0786-1 - CMP Performed By: #### L 500.4050, L100.0100 ####[facility] [address] [place], [address] ALK P 117 U/L Normal 45-117 [facility] Comment on above: Order Comment: Order Date: 03/05/24Order Info: 0786-1 - CMP Performed By: #### L 500.4050, L100.0100 ####[facility] [address] [place], [address] ALT [Catalytic activity/Vol] 16 U/L Normal 13-56 [facility] Comment on above: Order Comment: Order Date: 03/05/24Order Info: 0786-1 - CMP Performed By: #### L 500.4050, L100.0100 ####[facility] [address] [place], [address] AST [Catalytic activity/Vol] 19 U/L Normal 15-37 [facility] Comment on above: Order Comment: Order Date: 03/05/24Order Info: 0786-1 - CMP Performed By: #### L 500.4050, L100.0100 ####[facility] [address] [place], [address] Bilirubin [Mass/Vol] 3.90 mg/dL High 0.20-1.00 [facility] Comment on above: Order Comment: Order Date: 03/05/24Order Info: 0786-1 - CMP Result Comment: For patients on eltrombopag therapy, use of Dimension [place] TBIL is not recommended. Performed By: #### L 500.4050, L100.0100 ####[facility] [address] [place], [address] BUN/CRE 15.3 RATIO Normal 10-20 [facility] Comment on above: Order Comment: Order Date: 03/05/24Order Info: 0786-1 - CMP Performed By: #### L 500.4050, L100.0100 ####[facility] [address] [place], [address] CA,Total 8.8 mg/dL Normal 8.5-10.1 [facility] Comment on above: Order Comment: Order Date: 03/05/24Order Info: 785-1 - CMP Performed By: #### L 500.4050, L100.0100 ####[facility] [address] [place], [address] Chloride [Moles/Vol] 99 mmol/L Normal 98-107 [facility] Comment on above: Order Comment: Order Date: 03/05/24Order Info: 785-1 - CMP Performed By: #### L 500.4050, L100.0100 ####[facility] [address] [place], [address] CO2 [Moles/Vol] 28.0 mmol/L Normal 21.0-32.0 [facility] Comment on above: Order Comment: Order Date: 03/05/24Order Info: 07- - CMP Performed By: #### L 500.4050, L100.0100 ####[facility] [address] [place], [address] Creatinine [Mass/Vol] 0.78 mg/dL Normal 0.55-1.02 [facility] Comment on above: Order Comment: Order Date: 03/05/24Order Info: 0786-1 - CMP Result Comment: The validity of the calculated GFR GFRAA in patients over70 years has not been determined. Clinical correlation isessential. Performed By: #### L 500.4050, L100.0100 ####[facility] [address] [place], [address] EST GFR - AA 90 mL/min Normal >60 [facility] Comment on above: Order Comment: Order Date: 03/05/24Order Info: 0786-1 - CMP Result Comment: Afri can Kosovan GFR Calc Performed By: #### L 500.4050, L100.0100 ####[facility] [address] [place], [address] GAP 8 Normal 5-15 [facility] Comment on above: Order Comment: Order Date: 03/05/24Order Info: 0786-1 - CMP Performed By: #### L 500.4050, L100.0100 ####[facility] [address] [place], [address] GFR/1.73 sq M.predicted among non-blacks MDRD (S/P/Bld) [Vol rate/Area] 74 mL/min/{1.73_m2} Normal >60 [facility] Comment on above: Order Comment: Order Date: 03/05/24Order Info: 0786-1 - CMP Result Comment: Non- GFR Calc Performed By: #### L 500.4050, L100.0100 ####[facility] [address] [place], [address] Globulin (S) [Mass/Vol] 2.4 g/dL Normal 2.2-4.2 [facility] Comment on above: Order Comment: Order Date: 03/05/24Order Info: 0786-1 - CMP Performed By: #### L 500.4050, L100.0100 ####[facility] [address] [place], [address] Glucose [Mass/Vol] 156 mg/dL High 74-106 [facility] Comment on above: Order Comment: Order Date: 03/05/24Order Info: 0786-1 - CMP Result Comment: Fast ing Glucose result greater than or equal to 126 mg/dLsuggests DIABETES MELLITUS per A.D.A. criteria. Performed By: #### L 500.4050, L100.0100 ####[facility] [address] [place], [address] Potassium [Moles/Vol] 3.2 mmol/L Low 3.5-5.1 [facility] Comment on above: Order Comment: Order Date: 03/05/24Order Info: 0786-1 - CMP Performed By: #### L 500.4050, L100.0100 ####[facility] [address] [place], [address] Sodium [Moles/Vol] 135 mmol/L Low 136-145 [facility] Comment on above: Order Comment: Order Date: 03/05/24Order Info: 0786-1 - CMP Performed By: #### L 500.4050, L100.0100 ####[facility] [address] [place], [address] T PROT 5.7 g/dL Low 6.4-8.2 [facility] Comment on above: Order Comment: Order Date: 03/05/24Order Info: 0786-1 - CMP Performed By: #### L 500.4050, L100.0100 ####[facility] [address] [place], [address] Urea nitrogen [Mass/Vol] 12 mg/dL Normal 7-18 [facility] Comment on above: Order Comment: Order Date: 03/05/24Order Info: 0786-1 - CMP Performed By: #### L 500.4050, L100.0100 ####[facility] [address] [place], [address] Hemoglobinopathy Profileon 1 Hgb Solubility Normal [facility] Comment on above: Result Comment: TEST RESULTS LIMITSHgb Fractionation [place] Hgb Fractionation by CE: Hgb F 0.0 % 0.0-2.0 Hgb A 98.6 % 96.4-98.8 Hgb A2 1.4 Low % 1.8-3.2 Hgb S 0.0 % 0.0Interpretation:Normal hemoglobin present; no hemoglobin variant or betathalassemia identified.Note: Alpha thalassemia may not be detected by the HgbFractionation [place] panel. If alpha thalassemia issuspected, [facility] offers Alpha-Thalassemia DNA Analysis(#[id number]).Low Hgb A2 may indicate an alpha-thalassemia or irondeficiency.Suggest clinical and hematologic correlation. TESTING PERFORMED AT [facility]. ORIGINAL REPORT ON FILE IN LAB CONTAINS ADDITIONAL TEST SITE INFORMATION. Performed By: #### L 504.2610, L3300.2202, M42101-4 ####[facility] [address] [place], [address] CBC W/Diff, Automatedon 10-0 -2023 Absolute Neut Normal 2.0-7.7 [facility] Comment on above: Result Comment: Canc elled via OM: Order cancelled - Patient discharged Performed By: #### L 500.4050, L100.0100 ####[facility] [address] [place], [address] HCT Normal 37-47 [facility] Comment on above: Result Comment: Canc elled via OM: Order cancelled - Patient discharged Performed By: #### L 500.4050, L100.0100 ####[facility] [address] [place], [address] HGB Normal 12.0-15.0 [facility] Comment on above: Result Comment: Canc elled via OM: Order cancelled - Patient discharged Performed By: #### L 500.4050, L100.0100 ####[facility] [address] [place], [address] MCH Normal 27.0-32.0 [facility] Comment on above: Result Comment: Canc elled via OM: Order cancelled - Patient discharged Performed By: #### L 500.4050, L100.0100 ####[facility] [address] [place], [address] MCHC Normal 32-36 [facility] Comment on above: Result Comment: Canc elled via OM: Order cancelled - Patient discharged Performed By: #### L 500.4050, L100.0100 ####[facility] [address] [place], [address] MCV Normal 81-99 [facility] Comment on above: Result Comment: Canc elled via OM: Order cancelled - Patient discharged Performed By: #### L 500.4050, L100.0100 ####[facility] [address] [place], [address] NEUT% Normal 47-70 [facility] Comment on above: Result Comment: Canc elled via OM: Order cancelled - Patient discharged Performed By: #### L 500.4050, L100.0100 ####[facility] [address] [place], [address] PLT Normal 150-450 [facility] Comment on above: Result Comment: Canc elled via OM: Order cancelled - Patient discharged Performed By: #### L 500.4050, L100.0100 ####[facility] [address] [place], [address] RBC Normal 4.2-5.4 [facility] Comment on above: Result Comment: Canc elled via OM: Order cancelled - Patient discharged Performed By: #### L 500.4050, L100.0100 ####[facility] [address] [place], [address] RDW CV Normal 11.6-14.6 [facility] Comment on above: Result Comment: Canc elled via OM: Order cancelled - Patient discharged Performed By: #### L 500.4050, L100.0100 ####[facility] [address] [place], [address] RDW SD Normal 35.1-43.9 [facility] Comment on above: Result Comment: Canc elled via OM: Order cancelled - Patient discharged Performed By: #### L 500.4050, L100.0100 ####[facility] [address] [place], [address] WBC Normal 4.4-11.0 [facility] Comment on above: Result Comment: Canc elled via OM: Order cancelled - Patient discharged Performed By: #### L 500.4050, L100.0100 ####[facility] [address] [place], [address] Comprehensive Metabolic Prof ilon 03-04-2024 ALB Normal 3.2-5.0 [facility] Comment on above: Result Comment: Canc elled via OM: Order cancelled - Patient discharged Performed By: #### L 500.4050, L100.0100 ####[facility] [address] [place], [address] ALK P Normal 45-117 [facility] Comment on above: Result Comment: Canc elled via OM: Order cancelled - Patient discharged Performed By: #### L 500.4050, L100.0100 ####[facility] [address] [place], [address] ALT Normal 13-56 [facility] Comment on above: Result Comment: Canc elled via OM: Order cancelled - Patient discharged Performed By: #### L 500.4050, L100.0100 ####[facility] [address] [place], [address] AST Normal 15-37 [facility] Comment on above: Result Comment: Canc elled via OM: Order cancelled - Patient discharged Performed By: #### L 500.4050, L100.0100 ####[facility] [address] [place], [address] BUN Normal 7-18 [facility] Comment on above: Result Comment: Canc elled via OM: Order cancelled - Patient discharged Performed By: #### L 500.4050, L100.0100 ####[facility] [address] [place], [address] BUN/CRE Normal 10-20 [facility] Comment on above: Result Comment: Canc elled via OM: Order cancelled - Patient discharged Performed By: #### L 500.4050, L100.0100 ####[facility] [address] [place], [address] CA,Total Normal 8.5-10.1 [facility] Comment on above: Result Comment: Canc elled via OM: Order cancelled - Patient discharged Performed By: #### L 500.4050, L100.0100 ####[facility] [address] [place], [address] CL Normal 98-107 [facility] Comment on above: Result Comment: Canc elled via OM: Order cancelled - Patient discharged Performed By: #### L 500.4050, L100.0100 ####[facility] [address] [place], [address] CO2 Normal 21.0-32.0 [facility] Comment on above: Result Comment: Canc elled via OM: Order cancelled - Patient discharged Performed By: #### L 500.4050, L100.0100 ####[facility] [address] [place], [address] CREAT,SERUM Normal 0.55-1.02 [facility] Comment on above: Result Comment: Canc elled via OM: Order cancelled - Patient discharged Performed By: #### L 500.4050, L100.0100 ####[facility] [address] [place], [address] EST GFR Normal >60 [facility] Comment on above: Result Comment: Canc elled via OM: Order cancelled - Patient discharged Performed By: #### L 500.4050, L100.0100 ####[facility] [address] [place], [address] EST GFR - AA Normal >60 [facility] Comment on above: Result Comment: Canc elled via OM: Order cancelled - Patient discharged Performed By: #### L 500.4050, L100.0100 ####[facility] [address] [place], [address] GAP Normal 5-15 [facility] Comment on above: Result Comment: Canc elled via OM: Order cancelled - Patient discharged Performed By: #### L 500.4050, L100.0100 ####[facility] [address] [place], [address] GLU Normal 74-106 [facility] Comment on above: Result Comment: Canc elled via OM: Order cancelled - Patient discharged Performed By: #### L 500.4050, L100.0100 ####[facility] [address] [place], [address] Potassium Normal 3.5-5.1 [facility] Comment on above: Result Comment: Canc elled via OM: Order cancelled - Patient discharged Performed By: #### L 500.4050, L100.0100 ####[facility] [address] [place], [address] T BILI Normal 0.20-1.00 [facility] Comment on above: Result Comment: Canc elled via OM: Order cancelled - Patient discharged Performed By: #### L 500.4050, L100.0100 ####[facility] [address] [place], [address] T PROT Normal 6.4-8.2 [facility] Comment on above: Result Comment: Canc elled via OM: Order cancelled - Patient discharged Performed By: #### L 500.4050, L100.0100 ####[facility] [address] [place], [address] Comprehensive Metabolic Profil Normal 136-145 [facility] Comment on above: Result Comment: Canc elled via OM: Order cancelled - Patient discharged Performed By: #### L 500.4050, L100.0100 ####[facility] [address] [place], [address] CBC W/Diff, Automatedon 10-0 Anisocytosis Ql (Bld) 2+ Normal [facility] Comment on above: Performed By: #### L 100.0100, L500.4050 ####[facility] [address] [place], [address] HYPOCHROMASIA 3+ Normal [facility] Comment on above: Performed By: #### L 100.0100, L500.4050 ####[facility] [address] [place], [address] MACROCYTOSIS 1+ Normal [facility] Comment on above: Performed By: #### L 100.0100, L500.4050 ####[facility] [address] [place], [address] POLYCHROMASIA 1+ Normal [facility] Comment on above: Performed By: #### L 100.0100, L500.4050 ####[facility] [address] [place], [address] SCHISTOCYTES 1+ Normal [facility] Comment on above: Performed By: #### L 100.0100, L500.4050 ####[facility] [address] [place], [address] TARGET CELLS 1+ Normal [facility] Comment on above: Performed By: #### L 100.0100, L500.4050 ####[facility] [address] [place], [address] PLT EST ADEQUATE Normal ADEQ [facility] Comment on above: Performed By: #### L 100.0100, L500.4050 ####[facility] [address] [place], [address] SMEAR COMMENT SCANNED Normal [facility] Comment on above: Performed By: #### L 100.0100, L500.4050 ####[facility] [address] [place], [address] Comprehensive Metabolic Prof ilon 03-03-2024 Albumin [Mass/Vol] 2.9 g/dL Low 3.2-5.0 [facility] Comment on above: Performed By: #### L 100.0100, L500.4050 ####[facility] [address] [place], [address] Albumin/Globulin [Mass ratio] 1.4 {ratio} Normal 0.9-2.4 [facility] Comment on above: Performed By: #### L 100.0100, L500.4050 ####[facility] [address] [place], [address] ALK P 103 U/L Normal 45-117 [facility] Comment on above: Performed By: #### L 100.0100, L500.4050 ####[facility] [address] [place], [address] ALT [Catalytic activity/Vol] 13 U/L Normal 13-56 [facility] Comment on above: Performed By: #### L 100.0100, L500.4050 ####[facility] [address] [place], [address] AST [Catalytic activity/Vol] 12 U/L Low 15-37 [facility] Comment on above: Performed By: #### L 100.0100, L500.4050 ####[facility] [address] [place], [address] Bilirubin [Mass/Vol] 4.10 mg/dL High 0.20-1.00 [facility] Comment on above: Result Comment: For patients on eltrombopag therapy, use of Dimension [place] TBIL is not recommended. Performed By: #### L 100.0100, L500.4050 ####[facility] [address] [place], [address] BUN/CRE 20.1 RATIO High 10-20 [facility] Comment on above: Performed By: #### L 100.0100, L500.4050 ####[facility] [address] [place], [address] CA,Total 8.6 mg/dL Normal 8.5-10.1 [facility] Comment on above: Performed By: #### L 100.0100, L500.4050 ####[facility] [address] [place], [address] Chloride [Moles/Vol] 102 mmol/L Normal 98-107 [facility] Comment on above: Performed By: #### L 100.0100, L500.4050 ####[facility] [address] [place], [address] CO2 [Moles/Vol] 28.0 mmol/L Normal 21.0-32.0 [facility] Comment on above: Performed By: #### L 100.0100, L500.4050 ####[facility] [address] [place], [address] Creatinine [Mass/Vol] 0.55 mg/dL Normal 0.55-1.02 [facility] Comment on above: Result Comment: The validity of the calculated GFR GFRAA in patients over70 years has not been determined. Clinical correlation isessential. Performed By: #### L 100.0100, L500.4050 ####[facility] [address] [place], [address] ECRCL 58.92 ml/min Normal [facility] Comment on above: Performed By: #### L 100.0100, L500.4050 ####[facility] [address] [place], [address] EST GFR - AA 136 mL/min Normal >60 [facility] Comment on above: Result Comment: Afri can Kosovan GFR Calc Performed By: #### L 100.0100, L500.4050 ####[facility] [address] [place], [address] GAP 6 Normal 5-15 [facility] Comment on above: Performed By: #### L 100.0100, L500.4050 ####[facility] [address] [place], [address] GFR/1.73 sq M.predicted among non-blacks MDRD (S/P/Bld) [Vol rate/Area] 112 mL/min/{1.73_m2} Normal >60 [facility] Comment on above: Result Comment: Non- GFR Calc Performed By: #### L 100.0100, L500.4050 ####[facility] [address] [place], [address] Globulin (S) [Mass/Vol] 2.1 g/dL Low 2.2-4.2 [facility] Comment on above: Performed By: #### L 100.0100, L500.4050 ####[facility] [address] [place], [address] Glucose [Mass/Vol] 109 mg/dL High 74-106 [facility] Comment on above: Result Comment: Fast ing Glucose result from 100 to 125 mg/dLsuggests IMPAIRED HOMEOSTASIS per A.D.A. criteria. Performed By: #### L 100.0100, L500.4050 ####[facility] [address] [place], [address] Potassium [Moles/Vol] 3.4 mmol/L Low 3.5-5.1 [facility] Comment on above: Performed By: #### L 100.0100, L500.4050 ####[facility] [address] [place], [address] Sodium [Moles/Vol] 136 mmol/L Normal 136-145 [facility] Comment on above: Performed By: #### L 100.0100, L500.4050 ####[facility] [address] [place], [address] T PROT 5.0 g/dL Low 6.4-8.2 [facility] Comment on above: Performed By: #### L 100.0100, L500.4050 ####[facility] [address] [place], [address] Urea nitrogen [Mass/Vol] 11 mg/dL Normal 7-18 [facility] Comment on above: Performed By: #### L 100.0100, L500.4050 ####[facility] [address] [place], [address] Discharge Instructionon 10-0 Discharge Instruction Normal [facility] CBC W/Diff, Automatedon 10-0 PATH REV Reviewed Normal [facility] Comment on above: Result Comment: Leuk ocytosis.Microcytic anemia.Clinical correlation necessary.Klever Acosta M.D. 03/02/24 AMENDED REPORT 03/02/24 1409 PATH REV previously reported as: Nancy angel Performed By: #### L 500.4050, L100.0100, L500.2500 ####[facility] [address] [place], [address] Anisocytosis Ql (Bld) 1+ Normal [facility] Comment on above: Performed By: #### L 100.0100, L500.4050 ####[facility] [address] [place], [address] HYPOCHROMASIA 1+ Normal [facility] Comment on above: Performed By: #### L 100.0100, L500.4050 ####[facility] [address] [place], [address] Comprehensive Metabolic Prof [facility] 03-02-2024 Albumin [Mass/Vol] 2.8 g/dL Low 3.2-5.0 [facility] Comment on above: Performed By: #### L 100.0100, L500.4050 ####[facility] [address] [place], [address] Albumin/Globulin [Mass ratio] 1.3 {ratio} Normal 0.9-2.4 [facility] Comment on above: Performed By: #### L 100.0100, L500.4050 ####[facility] [address] [place], [address] ALK P 110 U/L Normal 45-117 [facility] Comment on above: Performed By: #### L 100.0100, L500.4050 ####[facility] [address] [place], [address] ALT [Catalytic activity/Vol] 14 U/L Normal 13-56 [facility] Comment on above: Performed By: #### L 100.0100, L500.4050 ####[facility] [address] [place], [address] AST [Catalytic activity/Vol] 15 U/L Normal 15-37 [facility] Comment on above: Performed By: #### L 100.0100, L500.4050 ####[facility] [address] [place], [address] Bilirubin [Mass/Vol] 4.30 mg/dL High 0.20-1.00 [facility] Comment on above: Result Comment: For patients on eltrombopag therapy, use of Dimension [place] TBIL is not recommended. Performed By: #### L 100.0100, L500.4050 ####[facility] [address] [place], [address] BUN/CRE 20.0 RATIO Normal 10-20 [facility] Comment on above: Performed By: #### L 100.0100, L500.4050 ####[facility] [address] [place], [address] CA,Total 8.5 mg/dL Normal 8.5-10.1 [facility] Comment on above: Performed By: #### L 100.0100, L500.4050 ####[facility] [address] [place], [address] Chloride [Moles/Vol] 102 mmol/L Normal 98-107 [facility] Comment on above: Performed By: #### L 100.0100, L500.4050 ####[facility] [address] [place], [address] CO2 [Moles/Vol] 28.0 mmol/L Normal 21.0-32.0 [facility] Comment on above: Performed By: #### L 100.0100, L500.4050 ####[facility] [address] [place], [address] Creatinine [Mass/Vol] 0.60 mg/dL Normal 0.55-1.02 [facility] Comment on above: Result Comment: The validity of the calculated GFR GFRAA in patients over70 years has not been determined. Clinical correlation isessential. Performed By: #### L 100.0100, L500.4050 ####[facility] [address] [place], [address] ECRCL 58.92 ml/min Normal [facility] Comment on above: Performed By: #### L 100.0100, L500.4050 ####[facility] [address] [place], [address] EST GFR - AA 122 mL/min Normal >60 [facility] Comment on above: Result Comment: Afri can Kosovan GFR Calc Performed By: #### L 100.0100, L500.4050 ####[facility] [address] [place], [address] GAP 6 Normal 5-15 [facility] Comment on above: Performed By: #### L 100.0100, L500.4050 ####[facility] [address] [place], [address] GFR/1.73 sq M.predicted among non-blacks MDRD (S/P/Bld) [Vol rate/Area] 101 mL/min/{1.73_m2} Normal >60 [facility] Comment on above: Result Comment: Non- GFR Calc Performed By: #### L 100.0100, L500.4050 ####[facility] [address] [place], [address] Globulin (S) [Mass/Vol] 2.1 g/dL Low 2.2-4.2 [facility] Comment on above: Performed By: #### L 100.0100, L500.4050 ####[facility] [address] [place], [address] Glucose [Mass/Vol] 110 mg/dL High 74-106 [facility] Comment on above: Result Comment: Fast ing Glucose result from 100 to 125 mg/dLsuggests IMPAIRED HOMEOSTASIS per A.D.A. criteria. Performed By: #### L 100.0100, L500.4050 ####[facility] [address] [place], [address] Potassium [Moles/Vol] 3.4 mmol/L Low 3.5-5.1 [facility] Comment on above: Performed By: #### L 100.0100, L500.4050 ####[facility] [address] [place], [address] Sodium [Moles/Vol] 136 mmol/L Normal 136-145 [facility] Comment on above: Performed By: #### L 100.0100, L500.4050 ####[facility] [address] [place], [address] T PROT 4.9 g/dL Low 6.4-8.2 [facility] Comment on above: Performed By: #### L 100.0100, L500.4050 ####[facility] [address] [place], [address] Urea nitrogen [Mass/Vol] 12 mg/dL Normal 7-18 [facility] Comment on above: Performed By: #### L 100.0100, L500.4050 ####[facility] [address] [place], [address] Prothrombin Time w/INRon INR Coag (PPP) [Relative time] 1.5 {INR} Normal [facility] Comment on above: Performed By: #### L 300.3900 ####[facility] [address] [place], [address] PT Coag (PPP) [Time] 18.0 s High 11.7-14.9 [facility] Comment on above: Performed By: #### L 300.3900 ####[facility] [address] [place], [address] 12 Lead EKGon 03-01-2024 12 Lead EKG Normal [facility] Basic Metabolic Profile (BMP )on 03-01-2024 BUN/CRE 15.4 RATIO Normal 10-20 [facility] Comment on above: Performed By: #### L 500.4050, L100.0100, L500.2500 ####[facility] [address] [place], [address] CA,Total 8.6 mg/dL Normal 8.5-10.1 [facility] Comment on above: Performed By: #### L 500.4050, L100.0100, L500.2500 ####[facility] [address] [place], [address] Chloride [Moles/Vol] 102 mmol/L Normal 98-107 [facility] Comment on above: Performed By: #### L 500.4050, L100.0100, L500.2500 ####[facility] [address] [place], [address] CO2 [Moles/Vol] 27.0 mmol/L Normal 21.0-32.0 [facility] Comment on above: Performed By: #### L 500.4050, L100.0100, L500.2500 ####[facility] [address] [place], [address] Creatinine [Mass/Vol] 0.71 mg/dL Normal 0.55-1.02 [facility] Comment on above: Result Comment: The validity of the calculated GFR GFRAA in patients over70 years has not been determined. Clinical correlation isessential. Performed By: #### L 500.4050, L100.0100, L500.2500 ####[facility] [address] [place], [address] ECRCL 58.92 ml/min Normal [facility] Comment on above: Performed By: #### L 500.4050, L100.0100, L500.2500 ####[facility] [address] [place], [address] EST GFR - AA 100 mL/min Normal >60 [facility] Comment on above: Result Comment: Afri can Kosovan GFR Calc Performed By: #### L 500.4050, L100.0100, L500.2500 ####[facility] [address] [place], [address] GAP 7 Normal 5-15 [facility] Comment on above: Performed By: #### L 500.4050, L100.0100, L500.2500 ####[facility] [address] [place], [address] GFR/1.73 sq M.predicted among non-blacks MDRD (S/P/Bld) [Vol rate/Area] 83 mL/min/{1.73_m2} Normal >60 [facility] Comment on above: Result Comment: Non- GFR Calc Performed By: #### L 500.4050, L100.0100, L500.2500 ####[facility] [address] [place], [address] Glucose [Mass/Vol] 126 mg/dL High 74-106 [facility] Comment on above: Result Comment: Fast ing Glucose result greater than or equal to 126 mg/dLsuggests DIABETES MELLITUS per A.D.A. criteria. Performed By: #### L 500.4050, L100.0100, L500.2500 ####[facility] [address] [place], [address] Potassium [Moles/Vol] 3.6 mmol/L Normal 3.5-5.1 [facility] Comment on above: Performed By: #### L 500.4050, L100.0100, L500.2500 ####[facility] [address] [place], [address] Sodium [Moles/Vol] 136 mmol/L Normal 136-145 [facility] Comment on above: Performed By: #### L 500.4050, L100.0100, L500.2500 ####[facility] [address] [place], [address] Urea nitrogen [Mass/Vol] 11 mg/dL Normal 7-18 [facility] Comment on above: Performed By: #### L 500.4050, L100.0100, L500.2500 ####[facility] [address] [place], [address] Colonoscopy Reporton 024 Colonoscopy Report Normal [facility] Comprehensive Metabolic Prof ilon 03-01-2024 Albumin [Mass/Vol] 3.3 g/dL Normal 3.2-5.0 [facility] Comment on above: Performed By: #### L 500.4050, L100.0100, L500.2500 ####[facility] [address] [place], [address] Albumin/Globulin [Mass ratio] 1.5 {ratio} Normal 0.9-2.4 [facility] Comment on above: Performed By: #### L 500.4050, L100.0100, L500.2500 ####[facility] [address] [place], [address] ALK P 129 U/L High 45-117 [facility] Comment on above: Performed By: #### L 500.4050, L100.0100, L500.2500 ####[facility] [address] [place], [address] ALT [Catalytic activity/Vol] 13 U/L Normal 13-56 [facility] Comment on above: Performed By: #### L 500.4050, L100.0100, L500.2500 ####[facility] [address] [place], [address] AST [Catalytic activity/Vol] 20 U/L Normal 15-37 [facility] Comment on above: Performed By: #### L 500.4050, L100.0100, L500.2500 ####[facility] [address] [place], [address] Bilirubin [Mass/Vol] 4.80 mg/dL High 0.20-1.00 [facility] Comment on above: Result Comment: For patients on eltrombopag therapy, use of Dimension [place] TBIL is not recommended. Performed By: #### L 500.4050, L100.0100, L500.2500 ####[facility] [address] [place], [address] Globulin (S) [Mass/Vol] 2.2 g/dL Normal 2.2-4.2 [facility] Comment on above: Performed By: #### L 500.4050, L100.0100, L500.2500 ####[facility] [address] [place], [address] T PROT 5.5 g/dL Low 6.4-8.2 [facility] Comment on above: Performed By: #### L 500.4050, L100.0100, L500.2500 ####[facility] [address] [place], [address] MR/PN.GIon 03-01-2024 MR/PN.GI Normal [facility] MR/POSTOP.ANEon 03-01-2024 MR/POSTOP.ANE Normal [facility] Partial Thromboplast Timeon 03-01-2024 aPTT Coag (Bld) [Time] 33.4 s Normal 24.1-36.2 [facility] Comment on above: Performed By: #### L 300.3900, L300.4310 ####[facility] [address] [place], [address] Prothrombin Time w/INRon INR Coag (PPP) [Relative time] 1.5 {INR} Normal [facility] Comment on above: Performed By: #### L 300.3900, L300.4310 ####[facility] [address] [place], [address] PT Coag (PPP) [Time] 18.1 s High 11.7-14.9 [facility] Comment on above: Performed By: #### L 300.3900, L300.4310 ####[facility] [address] [place], [address] [id number] 02-29-2024 DIRECT PAUL NEG w/POLYSPECIFIC Normal NEGATIVE [facility] Comment on above: Performed By: #### L 504.2610, L3300.2202, D03556-6 ####[facility] [address] [place], [address] Bilirubin, Directon 02-29-20 24 Bilirubin.direct [Mass/Vol] 1.16 mg/dL High 0.00-0.30 [facility] Comment on above: Performed By: #### L 501.4700 ####[facility] [address] [place], [address] CBC W/Diff, Automatedon ACANTHOCYTE 1+ Normal [facility] Comment on above: Performed By: #### L 100.0100, L500.4050 ####[facility] [address] [place], [address] BITE CELL RARE Normal [facility] Comment on above: Performed By: #### L 100.0100, L500.4050 ####[facility] [address] [place], [address] HYPOCHROMASIA 3+ Normal [facility] Comment on above: Performed By: #### L 100.0100, L500.4050 ####[facility] [address] [place], [address] SCHISTOCYTES 1+ Normal [facility] Comment on above: Performed By: #### L 100.0100, L500.4050 ####[facility] [address] [place], [address] TARGET CELLS 2+ Normal [facility] Comment on above: Performed By: #### L 100.0100, L500.4050 ####[facility] [address] [place], [address] Anisocytosis Ql (Bld) 2+ Normal [facility] Comment on above: Performed By: #### L 100.0100, L500.4050 ####[facility] [address] [place], [address] PLT EST ADEQUATE Normal ADEQ [facility] Comment on above: Performed By: #### L 100.0100, L500.4050 ####[facility] [address] [place], [address] SMEAR COMMENT SCANNED Normal [facility] Comment on above: Performed By: #### L 100.0100, L500.4050 ####[facility] [address] [place], [address] Comprehensive Metabolic Prof wyon 02-29-2024 Albumin [Mass/Vol] 2.7 g/dL Low 3.2-5.0 [facility] Comment on above: Performed By: #### L 100.0100, L500.4050 ####[facility] [address] [place], [address] Albumin/Globulin [Mass ratio] 1.5 {ratio} Normal 0.9-2.4 [facility] Comment on above: Performed By: #### L 100.0100, L500.4050 ####[facility] [address] [place], [address] ALK P 92 U/L Normal 45-117 [facility] Comment on above: Performed By: #### L 100.0100, L500.4050 ####[facility] [address] [place], [address] ALT [Catalytic activity/Vol] 12 U/L Low 13-56 [facility] Comment on above: Performed By: #### L 100.0100, L500.4050 ####[facility] [address] [place], [address] AST [Catalytic activity/Vol] 19 U/L Normal 15-37 [facility] Comment on above: Performed By: #### L 100.0100, L500.4050 ####[facility] [address] [place], [address] Bilirubin [Mass/Vol] 5.60 mg/dL High 0.20-1.00 [facility] Comment on above: Result Comment: For patients on eltrombopag therapy, use of Dimension [place] TBIL is not recommended. Performed By: #### L 100.0100, L500.4050 ####[facility] [address] [place], [address] BUN/CRE 16.6 RATIO Normal 10-20 [facility] Comment on above: Performed By: #### L 100.0100, L500.4050 ####[facility] [address] [place], [address] CA,Total 8.5 mg/dL Normal 8.5-10.1 [facility] Comment on above: Performed By: #### L 100.0100, L500.4050 ####[facility] [address] [place], [address] Chloride [Moles/Vol] 105 mmol/L Normal 98-107 [facility] Comment on above: Performed By: #### L 100.0100, L500.4050 ####[facility] [address] [place], [address] CO2 [Moles/Vol] 26.0 mmol/L Normal 21.0-32.0 [facility] Comment on above: Performed By: #### L 100.0100, L500.4050 ####[facility] [address] [place], [address] Creatinine [Mass/Vol] 0.66 mg/dL Normal 0.55-1.02 [facility] Comment on above: Result Comment: The validity of the calculated GFR GFRAA in patients over70 years has not been determined. Clinical correlation isessential. Performed By: #### L 100.0100, L500.4050 ####[facility] [address] [place], [address] ECRCL 58.92 ml/min Normal [facility] Comment on above: Performed By: #### L 100.0100, L500.4050 ####[facility] [address] [place], [address] EST GFR - AA 108 mL/min Normal >60 [facility] Comment on above: Result Comment: Afri can Kosovan GFR Calc Performed By: #### L 100.0100, L500.4050 ####[facility] [address] [place], [address] GAP 6 Normal 5-15 [facility] Comment on above: Performed By: #### L 100.0100, L500.4050 ####[facility] [address] [place], [address] GFR/1.73 sq M.predicted among non-blacks MDRD (S/P/Bld) [Vol rate/Area] 90 mL/min/{1.73_m2} Normal >60 [facility] Comment on above: Result Comment: Non- GFR Calc Performed By: #### L 100.0100, L500.4050 ####[facility] [address] [place], [address] Globulin (S) [Mass/Vol] 1.8 g/dL Low 2.2-4.2 [facility] Comment on above: Performed By: #### L 100.0100, L500.4050 ####[facility] [address] [place], [address] Glucose [Mass/Vol] 99 mg/dL Normal 74-106 [facility] Comment on above: Performed By: #### L 100.0100, L500.4050 ####[facility] [address] [place], [address] Potassium [Moles/Vol] 3.9 mmol/L Normal 3.5-5.1 [facility] Comment on above: Performed By: #### L 100.0100, L500.4050 ####[facility] [address] [place], [address] Sodium [Moles/Vol] 137 mmol/L Normal 136-145 [facility] Comment on above: Performed By: #### L 100.0100, L500.4050 ####[facility] [address] [place], [address] T PROT 4.5 g/dL Low 6.4-8.2 [facility] Comment on above: Performed By: #### L 100.0100, L500.4050 ####[facility] [address] [place], [address] Urea nitrogen [Mass/Vol] 11 mg/dL Normal 7-18 [facility] Comment on above: Performed By: #### L 100.0100, L500.4050 ####[facility] [address] [place], [address] Hepatitis Panel Acuteon 10-0 COMMENT Comment Normal . [facility] Comment on above: Result Comment: Not infected with HCV unless early or acute infection issuspected (which may be delayed in an immunocompromisedindividual), or other evidence exists to indicate HCVinfection.Performed at: - [facility] [id number] Director: Kevin Condon PhD, Phone: [phone] Performed By: #### L 3000.0375 ####[facility] [address] [place] [id number] HEP B CORE,IgM Negative Normal Negative [facility] Comment on above: Performed By: #### L 3000.0375 ####[facility] [address] [place], [address] HEP B SURF AG Negative Normal Negative [facility] Comment on above: Performed By: #### L 3000.0375 ####[facility] [address] [place] [address] HEP C VIRUS AB Non-Reactive Normal Non Reactive [facility] Comment on above: Performed By: #### L 3000.0375 ####[facility] [address] [place] [id number] HEPATITIS A-IgM Negative Normal Negative [facility] Comment on above: Result Comment: A ne gative anti-HAV IgM result suggests no recent orcurrent HAV infection. Performed By: #### L 3000.0375 ####[facility] [address] [place] [address] LDHon 02-29-2024 LDH 181 U/L Normal 84-246 [facility] Comment on above: Performed By: #### L 504.2610, L3300.2202, S37294-7 ####[facility] [address] [place] [address] Prothrombin Time w/INRon INR Coag (PPP) [Relative time] 1.7 {INR} Normal [facility] Comment on above: Performed By: #### L 300.3900 ####[facility] [address] [place] [phone] PT Coag (PPP) [Time] 20.2 s High 11.7-14.9 [facility] Comment on above: Performed By: #### L 300.3900 ####[facility] [address] [place], [address] Bilirubin, Directon 02-28-20 Bilirubin.direct [Mass/Vol] 0.92 mg/dL High 0.00-0.30 [facility] Comment on above: Performed By: #### L 501.4700, L503.6030, L503.6550 ####[facility] [address] [place], [address] CBC W/Diff, Automatedon 10-0 PATH REV Reviewed Normal [facility] Comment on above: Result Comment: GERRI RE Microcytic anemia.Clinical correlation necessary.Klever Acosta M.D. 02/28/24 AMENDED REPORT 02/28/24 1506 PATH REV previously reported as: September Performed By: #### B TS, L500.2500, L300.4310, L503.6620, L501.5425, L501.2450, L100.0100, L500.3400, L300.3900, L503.6005 ####[facility] [address] [place], [address] PATH REV Reviewed Normal [facility] Comment on above: Order Comment: Order Date: 11/17/23Order Info: [id number] - CBCD Result Comment: GERRI RE Microcytic anemia.Clinical correlation necessary.Klever Acosta M.D. 02/28/24 AMENDED REPORT 02/28/24 1505 PATH REV previously reported as: September foll Performed By: #### L 500.4050, L503.0105, L506.1000, L501.9985, L501.9520, L501.5200, L506.0400, L100.0100 ####[facility] [address] [place], [address] Anisocytosis Ql (Bld) 2+ Normal [facility] Comment on above: Performed By: #### L 100.0100, L500.4050 ####[facility] [address] [place], [address] HYPOCHROMASIA 2+ Normal [facility] Comment on above: Performed By: #### L 100.0100, L500.4050 ####[facility] [address] [place], [address] POLYCHROMASIA 1+ Normal [facility] Comment on above: Performed By: #### L 100.0100, L500.4050 ####[facility] [address] [place], [address] SMEAR COMMENT SCANNED Normal [facility] Comment on above: Performed By: #### L 100.0100, L500.4050 ####[facility] [address] [place], [address] Comprehensive Metabolic Prof wyon 02-28-2024 Albumin [Mass/Vol] 3.1 g/dL Low 3.2-5.0 [facility] Comment on above: Performed By: #### L 100.0100, L500.4050 ####[facility] [address] [place], [address] Albumin/Globulin [Mass ratio] 1.5 {ratio} Normal 0.9-2.4 [facility] Comment on above: Performed By: #### L 100.0100, L500.4050 ####[facility] [address] [place], [address] ALK P 109 U/L Normal 45-117 [facility] Comment on above: Performed By: #### L 100.0100, L500.4050 ####[facility] [address] [place], [address] ALT [Catalytic activity/Vol] 13 U/L Normal 13-56 [facility] Comment on above: Performed By: #### L 100.0100, L500.4050 ####[facility] [address] [place], [address] AST [Catalytic activity/Vol] 16 U/L Normal 15-37 [facility] Comment on above: Performed By: #### L 100.0100, L500.4050 ####[facility] [address] [place], [address] Bilirubin [Mass/Vol] 5.40 mg/dL High 0.20-1.00 [facility] Comment on above: Result Comment: For patients on eltrombopag therapy, use of Dimension [place] TBIL is not recommended. Performed By: #### L 100.0100, L500.4050 ####[facility] [address] [place], [address] BUN/CRE 14.9 RATIO Normal 10-20 [facility] Comment on above: Performed By: #### L 100.0100, L500.4050 ####[facility] [address] [place], [address] CA,Total 8.5 mg/dL Normal 8.5-10.1 [facility] Comment on above: Performed By: #### L 100.0100, L500.4050 ####[facility] [address] [place], [address] Chloride [Moles/Vol] 99 mmol/L Normal 98-107 [facility] Comment on above: Performed By: #### L 100.0100, L500.4050 ####[facility] [address] [place], [address] CO2 [Moles/Vol] 27.0 mmol/L Normal 21.0-32.0 [facility] Comment on above: Performed By: #### L 100.0100, L500.4050 ####[facility] [address] [place], [address] Creatinine [Mass/Vol] 0.67 mg/dL Normal 0.55-1.02 [facility] Comment on above: Result Comment: The validity of the calculated GFR GFRAA in patients over70 years has not been determined. Clinical correlation isessential. Performed By: #### L 100.0100, L500.4050 ####[facility] [address] [place], [address] ECRCL 58.92 ml/min Normal [facility] Comment on above: Performed By: #### L 100.0100, L500.4050 ####[facility] [address] [place], [address] EST GFR - AA 107 mL/min Normal >60 [facility] Comment on above: Result Comment: Afri can Kosovan GFR Calc Performed By: #### L 100.0100, L500.4050 ####[facility] [address] [place], [address] GAP 7 Normal 5-15 [facility] Comment on above: Performed By: #### L 100.0100, L500.4050 ####[facility] [address] [place], [address] GFR/1.73 sq M.predicted among non-blacks MDRD (S/P/Bld) [Vol rate/Area] 88 mL/min/{1.73_m2} Normal >60 [facility] Comment on above: Result Comment: Non- GFR Calc Performed By: #### L 100.0100, L500.4050 ####[facility] [address] [place], [address] Globulin (S) [Mass/Vol] 2.1 g/dL Low 2.2-4.2 [facility] Comment on above: Performed By: #### L 100.0100, L500.4050 ####[facility] [address] [place], [address] Glucose [Mass/Vol] 120 mg/dL High 74-106 [facility] Comment on above: Result Comment: Fast ing Glucose result from 100 to 125 mg/dLsuggests IMPAIRED HOMEOSTASIS per A.D.A. criteria. Performed By: #### L 100.0100, L500.4050 ####[facility] [address] [place], [address] Potassium [Moles/Vol] 3.4 mmol/L Low 3.5-5.1 [facility] Comment on above: Performed By: #### L 100.0100, L500.4050 ####[facility] [address] [place], [address] Sodium [Moles/Vol] 133 mmol/L Low 136-145 [facility] Comment on above: Performed By: #### L 100.0100, L500.4050 ####[facility] [address] [place], [address] T PROT 5.2 g/dL Low 6.4-8.2 [facility] Comment on above: Performed By: #### L 100.0100, L500.4050 ####[facility] [address] [place], [address] Urea nitrogen [Mass/Vol] 10 mg/dL Normal 7-18 [facility] Comment on above: Performed By: #### L 100.0100, L500.4050 ####[facility] [address] [place], [address] EGD Reporton 02-28-2024 EGD Report Normal [facility] Ferritinon 02-28-2024 Ferritin [Mass/Vol] 15 ng/mL Normal 8-252 [facility] Comment on above: Performed By: #### L 501.4700, L503.6030, L503.6550 ####[facility] [address] [place], [address] H Pylori (initial)on 024 H Pylori (initial) Normal [facility] Comment on above: Performed By: #### P H.PYLORI ####[facility] [address] [place], [address] Iron+Iron Binding Capacityon 02-28-2024 Iron [Mass/Vol] 109 ug/dL Normal 50-170 [facility] Comment on above: Performed By: #### L 501.4700, L503.6030, L503.6550 ####[facility] [address] [place], [address] IRON SATURATION 22.4 Normal 15.0-55.0 [facility] Comment on above: Performed By: #### L 501.4700, L503.6030, L503.6550 ####[facility] [address] [place], [address] TIBC 486 ug/dL High 250-450 [facility] Comment on above: Performed By: #### L 501.4700, L503.6030, L503.6550 ####[facility] [address] [place], [address] L501.4020on 02-28-2024 TROPONIN-I HS 14 pg/mL Normal 3.0-54.0 [facility] Comment on above: Result Comment: Plea se Note: New Test Units and Gender Specific Reference Ranges. For more information see Policy Stat Procedure [place] High Sensitivity Troponin (TNIH) and attachments. Performed By: #### L 501.4020 ####[facility] [address] [place], [address] MR/CON.PCM.GIon 02-28-2024 MR/CON.PCM.GI Normal [facility] MR/POSTOP.ANEon 02-28-2024 MR/POSTOP.ANE Normal [facility] MR/DTOEIFBS7gj 02-28-2024 MR/POSTOPAN2 Normal [facility] Prothrombin Time w/INRon INR Coag (PPP) [Relative time] 2.0 {INR} Normal [facility] Comment on above: Performed By: #### L 300.3900 ####[facility] [address] [place], [address] PT Coag (PPP) [Time] 22.6 s High 11.7-14.9 [facility] Comment on above: Performed By: #### L 300.3900 ####[facility] [address] [place], [address] Surgery Specimen Level Meek 02-28-2024 Surgery Specimen Level IV Normal [facility] Comment on above: Performed By: #### P SUIV ####[facility] [address] [place], [address] Venous Duplex US - Sherwin Extre mon 02-28-2024 Venous Duplex US - Sherwin Extrem Normal [facility] 12 Lead EKGon 02-27-2024 12 Lead EKG Normal [facility] Abdomen/Pelvis W IV Cont ONL Yon 02-27-2024 Abdomen/Pelvis W IV Cont ONLY Normal [facility] BNP,B-Type NATRIURETIC PEPTI Frank 02-27-2024 Natriuretic peptide B (Bld) [Mass/Vol] 659.5 pg/mL High 0-100 [facility] Comment on above: Performed By: #### B TS, L500.2500, L300.4310, L503.6620, L501.5425, L501.2450, L100.0100, L500.3400, L300.3900, L503.6005 ####[facility] [address] [place], [address] BRCon 02-27-2024 RC Normal [facility] Comment on above: Result Comment: [id number] OP RC TRANSFUSED 02/27/24 2241 Performed By: #### B ####[facility] [address] [place], [address] Basic Metabolic Profile (BMP )on 02-27-2024 BUN/CRE 15.8 RATIO Normal 10-20 [facility] Comment on above: Order Comment: 1Y Performed By: #### B TS, L500.2500, L300.4310, L503.6620, L501.5425, L501.2450, L100.0100, L500.3400, L300.3900, L503.6005 ####[facility] [address] [place], [address] CA,Total 8.8 mg/dL Normal 8.5-10.1 [facility] Comment on above: Order Comment: 1Y Performed By: #### B TS, L500.2500, L300.4310, L503.6620, L501.5425, L501.2450, L100.0100, L500.3400, L300.3900, L503.6005 ####[facility] [address] [place], [address] Chloride [Moles/Vol] 100 mmol/L Normal 98-107 [facility] Comment on above: Order Comment: 1Y Performed By: #### B TS, L500.2500, L300.4310, L503.6620, L501.5425, L501.2450, L100.0100, L500.3400, L300.3900, L503.6005 ####[facility] [address] [place], [address] CO2 [Moles/Vol] 24.0 mmol/L Normal 21.0-32.0 [facility] Comment on above: Order Comment: 1Y Performed By: #### B TS, L500.2500, L300.4310, L503.6620, L501.5425, L501.2450, L100.0100, L500.3400, L300.3900, L503.6005 ####[facility] [address] [place], [address] Creatinine [Mass/Vol] 0.76 mg/dL Normal 0.55-1.02 [facility] Comment on above: Order Comment: 1Y Result Comment: The validity of the calculated GFR GFRAA in patients over70 years has not been determined. Clinical correlation isessential. Performed By: #### B TS, L500.2500, L300.4310, L503.6620, L501.5425, L501.2450, L100.0100, L500.3400, L300.3900, L503.6005 ####[facility] [address] [place], [address] ECRCL 59.24 ml/min Normal [facility] Comment on above: Order Comment: 1Y Performed By: #### B TS, L500.2500, L300.4310, L503.6620, L501.5425, L501.2450, L100.0100, L500.3400, L300.3900, L503.6005 ####[facility] [address] [place], [address] EST GFR - AA 93 mL/min Normal >60 [facility] Comment on above: Order Comment: 1Y Result Comment: Afri can Kosovan GFR Calc Performed By: #### B TS, L500.2500, L300.4310, L503.6620, L501.5425, L501.2450, L100.0100, L500.3400, L300.3900, L503.6005 ####[facility] [address] [place], [address] GAP 9 Normal 5-15 [facility] Comment on above: Order Comment: 1Y Performed By: #### B TS, L500.2500, L300.4310, L503.6620, L501.5425, L501.2450, L100.0100, L500.3400, L300.3900, L503.6005 ####[facility] [address] [place], [address] GFR/1.73 sq M.predicted among non-blacks MDRD (S/P/Bld) [Vol rate/Area] 77 mL/min/{1.73_m2} Normal >60 [facility] Comment on above: Order Comment: 1Y Result Comment: Non- GFR Calc Performed By: #### B TS, L500.2500, L300.4310, L503.6620, L501.5425, L501.2450, L100.0100, L500.3400, L300.3900, L503.6005 ####[facility] [address] [place], [place], [phone]) Glucose [Mass/Vol] 145 mg/dL High 74-106 [facility] Comment on above: Order Comment: 1Y Result Comment: Fast ing Glucose result greater than or equal to 126 mg/dLsuggests DIABETES MELLITUS per A.D.A. criteria. Performed By: #### B TS, L500.2500, L300.4310, L503.6620, L501.5425, L501.2450, L100.0100, L500.3400, L300.3900, L503.6005 ####[facility] [address] [place], [place], [phone] Potassium [Moles/Vol] 3.8 mmol/L Normal 3.5-5.1 [facility] Comment on above: Order Comment: 1Y Performed By: #### B TS, L500.2500, L300.4310, L503.6620, L501.5425, L501.2450, L100.0100, L500.3400, L300.3900, L503.6005 ####[facility] [address] [place], [address] Sodium [Moles/Vol] 133 mmol/L Low 136-145 [facility] Comment on above: Order Comment: 1Y Performed By: #### B TS, L500.2500, L300.4310, L503.6620, L501.5425, L501.2450, L100.0100, L500.3400, L300.3900, L503.6005 ####[facility] [address] [place], [place], [address] Urea nitrogen [Mass/Vol] 12 mg/dL Normal 7-18 [facility] Comment on above: Order Comment: 1Y Performed By: #### B TS, L500.2500, L300.4310, L503.6620, L501.5425, L501.2450, L100.0100, L500.3400, L300.3900, L503.6005 ####[facility] [address] [place], [place], [address] Chest PA and Lateralon 02-26 Chest PA and Lateral Normal [facility] Comprehensive Metabolic Prof ilon 02-27-2024 Albumin [Mass/Vol] 3.3 g/dL Normal 3.2-5.0 [facility] Comment on above: Order Comment: Order Date: 11/17/23Order Info: [id number] - CMPOrder Info: [id number] - MGOrder Info: 3016-3 - TSHOrder Info: 3024-7 - T4F Performed By: #### L 500.4050, L503.0105, L506.1000, L501.9985, L501.9520, L501.5200, L506.0400, L100.0100 ####[facility] [address] [place], [place], [address] Albumin/Globulin [Mass ratio] 1.4 {ratio} Normal 0.9-2.4 [facility] Comment on above: Order Comment: Order Date: 11/17/23Order Info: [id number] - CMPOrder Info: [id number] - MGOrder Info: 3016-3 - TSHOrder Info: 3024-7 - T4F Performed By: #### L 500.4050, L503.0105, L506.1000, L501.9985, L501.9520, L501.5200, L506.0400, L100.0100 ####[facility] [address] [place], [address] ALK P 132 U/L High 45-117 [facility] Comment on above: Order Comment: Order Date: 11/17/23Order Info: 86-1 - CMPOrder Info: [id number] - MGOrder Info: 3015-07 - TSHOrder Info: 3024-7 - T4F Performed By: #### L 500.4050, L503.0105, L506.1000, L501.9985, L501.9520, L501.5200, L506.0400, L100.0100 ####[facility] [address] [place], [address] ALT [Catalytic activity/Vol] 15 U/L Normal 13-56 [facility] Comment on above: Order Comment: Order Date: 11/17/23Order Info: [id number] - CMPOrder Info: [id number] - MGOrder Info: 3 - TSHOrder Info: 3024-7 - T4F Performed By: #### L 500.4050, L503.0105, L506.1000, L501.9985, L501.9520, L501.5200, L506.0400, L100.0100 ####[facility] [address] [place], [address] AST [Catalytic activity/Vol] 15 U/L Normal 15-37 [facility] Comment on above: Order Comment: Order Date: 11/17/23Order Info: [id number] - CMPOrder Info: [id number] - MGOrder Info: 3015-3 - TSHOrder Info: 3024-7 - T4F Performed By: #### L 500.4050, L503.0105, L506.1000, L501.9985, L501.9520, L501.5200, L506.0400, L100.0100 ####[facility] [address] [place], [place], [address] Bilirubin [Mass/Vol] 3.70 mg/dL High 0.20-1.00 [facility] Comment on above: Order Comment: Order Date: 11/17/23Order Info: 0786-1 - CMPOrder Info: 26155-1 - MGOrder Info: 3016-3 - TSHOrder Info: 3024-7 - T4F Result Comment: For patients on eltrombopag therapy, use of Dimension [place] TBIL is not recommended. Performed By: #### L 500.4050, L503.0105, L506.1000, L501.9985, L501.9520, L501.5200, L506.0400, L100.0100 ####[facility] [address] [place], [place], [phone] BUN/CRE 16.3 RATIO Normal 10-20 [facility] Comment on above: Order Comment: Order Date: 11/17/23Order Info: 785-1 - CMPOrder Info: 74220-2 - MGOrder Info: 3015-3 - TSHOrder Info: 3024-7 - T4F Performed By: #### L 500.4050, L503.0105, L506.1000, L501.9985, L501.9520, L501.5200, L506.0400, L100.0100 ####[facility] [address] [place], [place], [phone],Total 8.7 mg/dL Normal 8.5-10.1 [facility] Comment on above: Order Comment: Order Date: 11/17/23Order Info: 0786-1 - CMPOrder Info: 86449-8 - MGOrder Info: 3016-3 - TSHOrder Info: 3024-7 - T4F Performed By: #### L 500.4050, L503.0105, L506.1000, L501.9985, L501.9520, L501.5200, L506.0400, L100.0100 ####[facility] [address] [place], [address] Chloride [Moles/Vol] 101 mmol/L Normal 98-107 [facility] [facility] Comment on above: Order Comment: Order Date: 11/17/23Order Info: [id number] - CMPOrder Info: [id number] - MGOrder Info: 301-3 - TSHOrder Info: 3024-7 - T4F Performed By: #### L 500.4050, L503.0105, L506.1000, L501.9985, L501.9520, L501.5200, L506.0400, L100.0100 ####[facility] [address] [place], [address] CO2 [Moles/Vol] 23.0 mmol/L Normal 21.0-32.0 [facility] Comment on above: Order Comment: Order Date: 11/17/23Order Info: 785-1 - CMPOrder Info: [id number] - MGOrder Info: 3 - TSHOrder Info: 302-7 - T4F Performed By: #### L 500.4050, L503.0105, L506.1000, L501.9985, L501.9520, L501.5200, L506.0400, L100.0100 ####[facility] [address] [place], [address] Creatinine [Mass/Vol] 0.67 mg/dL Normal 0.55-1.02 [facility] Comment on above: Order Comment: Order Date: 11/17/23Order Info: 86-1 - CMPOrder Info: [id number] - MGOrder Info: 3 - TSHOrder Info: 3024-7 - T4F Result Comment: The validity of the calculated GFR GFRAA in patients over70 years has not been determined. Clinical correlation isessential. Performed By: #### L 500.4050, L503.0105, L506.1000, L501.9985, L501.9520, L501.5200, L506.0400, L100.0100 ####[facility] [address] [place], [place], [address] EST GFR - AA 106 mL/min Normal >60 [facility] Comment on above: Order Comment: Order Date: 11/17/23Order Info: [id number] - CMPOrder Info: [id number] - MGOrder Info: 3 - TSHOrder Info: 3024-7 - T4F Result Comment: Afri can Kosovan GFR Calc Performed By: #### L 500.4050, L503.0105, L506.1000, L501.9985, L501.9520, L501.5200, L506.0400, L100.0100 ####[facility] [address] [place], [place], [address] GAP 9 Normal 5-15 [facility] Comment on above: Order Comment: Order Date: 11/17/23Order Info: 785-1 - CMPOrder Info: [id number] - MGOrder Info: 3 - TSHOrder Info: 3024-7 - T4F Performed By: #### L 500.4050, L503.0105, L506.1000, L501.9985, L501.9520, L501.5200, L506.0400, L100.0100 ####[facility] [address] [place], [place], [id number] GFR/1.73 sq M.predicted among non-blacks MDRD (S/P/Bld) [Vol rate/Area] 88 mL/min/{1.73_m2} Normal >60 [facility] Comment on above: Order Comment: Order Date: 11/17/23Order Info: 86-1 - CMPOrder Info: [id number] - MGOrder Info: 3016-3 - TSHOrder Info: 3024-7 - T4F Result Comment: Non- GFR Calc Performed By: #### L 500.4050, L503.0105, L506.1000, L501.9985, L501.9520, L501.5200, L506.0400, L100.0100 ####[facility] [address] [place], [address] Globulin (S) [Mass/Vol] 2.4 g/dL Normal 2.2-4.2 [facility] Comment on above: Order Comment: Order Date: 11/17/23Order Info: [id number] - CMPOrder Info: [id number] - MGOrder Info: 301-3 - TSHOrder Info: 3024-7 - T4F Performed By: #### L 500.4050, L503.0105, L506.1000, L501.9985, L501.9520, L501.5200, L506.0400, L100.0100 ####[facility] [address] [place], [address] Glucose [Mass/Vol] 118 mg/dL High 74-106 [facility] Comment on above: Order Comment: Order Date: 11/17/23Order Info: 785-1 - CMPOrder Info: [id number] - MGOrder Info: 3 - TSHOrder Info: 302-7 - T4F Result Comment: Fast ing Glucose result from 100 to 125 mg/dLsuggests IMPAIRED HOMEOSTASIS per A.D.A. criteria. Performed By: #### L 500.4050, L503.0105, L506.1000, L501.9985, L501.9520, L501.5200, L506.0400, L100.0100 ####[facility] [address] [place], [address] Potassium [Moles/Vol] 4.0 mmol/L Normal 3.5-5.1 [facility] Comment on above: Order Comment: Order Date: 11/17/23Order Info: [id number] - CMPOrder Info: [id number] - MGOrder Info: 3016-3 - TSHOrder Info: 3024-7 - T4F Performed By: #### L 500.4050, L503.0105, L506.1000, L501.9985, L501.9520, L501.5200, L506.0400, L100.0100 ####[facility] [address] [place], [place], [id number] Sodium [Moles/Vol] 133 mmol/L Low 136-145 [facility] Comment on above: Order Comment: Order Date: 11/17/23Order Info: [id number] - CMPOrder Info: [id number] - MGOrder Info: 3015-3 - TSHOrder Info: 3024-7 - T4F Performed By: #### L 500.4050, L503.0105, L506.1000, L501.9985, L501.9520, L501.5200, L506.0400, L100.0100 ####[facility] [address] [place], [place], [id number] T PROT 5.7 g/dL Low 6.4-8.2 [facility] Comment on above: Order Comment: Order Date: 11/17/23Order Info: 86-1 - CMPOrder Info: [id number] - MGOrder Info: 3 - TSHOrder Info: 3024-7 - T4F Performed By: #### L 500.4050, L503.0105, L506.1000, L501.9985, L501.9520, L501.5200, L506.0400, L100.0100 ####[facility] [address] [place], [place], [phone] Urea nitrogen [Mass/Vol] 11 mg/dL Normal 7-18 [facility] Comment on above: Order Comment: Order Date: 11/17/23Order Info: [id number] - CMPOrder Info: [id number] - MGOrder Info: 3016-3 - TSHOrder Info: 3024-7 - T4F Performed By: #### L 500.4050, L503.0105, L506.1000, L501.9985, L501.9520, L501.5200, L506.0400, L100.0100 ####[facility] [address] [place], [place], [address] Emergency Department Summary on 02-27-2024 Emergency Department Summary Normal [facility] Hemoglobin A1con 02-27-2024 HbA1c (Bld) [Mass fraction] 5.5 % Normal 3.8-5.6 [facility] Comment on above: Order Comment: Order Date: 11/17/23Order Info: [id number] - A1C Result Comment: Norm al < 5.7 % Prediabetic 5.7 - 6.4 % Diabetic >or= 6.5 % Please note range changes. Performed By: #### L 500.4050, L503.0105, L506.1000, L501.9985, L501.9520, L501.5200, L506.0400, L100.0100 ####[facility] [address] [place], [place], [id number] L501.5425on 02-27-2024 TROPONIN-I HS 12 pg/mL Normal 3.0-54.0 [facility] Comment on above: Order Comment: 1Y Result Comment: Plea se Note: New Test Units and Gender Specific Reference Ranges. For more information see Policy Stat Procedure [place] High Sensitivity Troponin (TNIH) and attachments. Performed By: #### B TS, L500.2500, L300.4310, L503.6620, L501.5425, L501.2450, L100.0100, L500.3400, L300.3900, L503.6005 ####[facility] [address] [place], [place], [phone] Lactic Acidon 02-27-2024 Lactate [Moles/Vol] 1.9 mmol/L Normal 0.4-1.9 [facility] Comment on above: Order Comment: Y Performed By: #### B TS, L500.2500, L300.4310, L503.6620, L501.5425, L501.2450, L100.0100, L500.3400, L300.3900, L503.6005 ####[facility] [address] [place], [address] Lipaseon 02-27-2024 Lipase [Catalytic activity/Vol] 42 U/L Normal 13-75 [facility] Comment on above: Order Comment: 1Y Result Comment: Robe daniel note:LIPASE revised reference range effective 22.New Lipase methodology. Expected to produce lower valuesthan the previous assay method.NEW Reference Range: 13 - 75 U/L Performed By: #### B TS, L500.2500, L300.4310, L503.6620, L501.5425, L501.2450, L100.0100, L500.3400, L300.3900, L503.6005 ####[facility] [address] [place], [address] Liver Profileon 02-27-2024 Albumin [Mass/Vol] 3.2 g/dL Normal 3.2-5.0 [facility] Comment on above: Order Comment: 1Y Performed By: #### B TS, L500.2500, L300.4310, L503.6620, L501.5425, L501.2450, L100.0100, L500.3400, L300.3900, L503.6005 ####[facility] [address] [place], [address] ALK P 129 U/L High 45-117 [facility] Comment on above: Order Comment: 1Y Performed By: #### B TS, L500.2500, L300.4310, L503.6620, L501.5425, L501.2450, L100.0100, L500.3400, L300.3900, L503.6005 ####[facility] [address] [place], [address] ALT [Catalytic activity/Vol] 14 U/L Normal 13-56 [facility] Comment on above: Order Comment: 1Y Performed By: #### B TS, L500.2500, L300.4310, L503.6620, L501.5425, L501.2450, L100.0100, L500.3400, L300.3900, L503.6005 ####[facility] [address] [place], [address] AST [Catalytic activity/Vol] 17 U/L Normal 15-37 [facility] Comment on above: Order Comment: 1Y Performed By: #### B TS, L500.2500, L300.4310, L503.6620, L501.5425, L501.2450, L100.0100, L500.3400, L300.3900, L503.6005 ####[facility] [address] [place], [address] Bilirubin [Mass/Vol] 3.50 mg/dL High 0.20-1.00 [facility] Comment on above: Order Comment: 1Y Result Comment: For patients on eltrombopag therapy, use of Dimension [place] TBIL is not recommended. Performed By: #### B TS, L500.2500, L300.4310, L503.6620, L501.5425, L501.2450, L100.0100, L500.3400, L300.3900, L503.6005 ####[facility] [address] [place], [place], [phone] Bilirubin.direct [Mass/Vol] 0.82 mg/dL High 0.00-0.30 [facility] Comment on above: Order Comment: 1Y Performed By: #### B TS, L500.2500, L300.4310, L503.6620, L501.5425, L501.2450, L100.0100, L500.3400, L300.3900, L503.6005 ####[facility] [address] [place], [address] Globulin (S) [Mass/Vol] 2.4 g/dL Normal 2.2-4.2 [facility] Comment on above: Order Comment: 1Y Performed By: #### B TS, L500.2500, L300.4310, L503.6620, L501.5425, L501.2450, L100.0100, L500.3400, L300.3900, L503.6005 ####[facility] [address] [place], [address] T PROT 5.6 g/dL Low 6.4-8.2 [facility] Comment on above: Order Comment: 1Y Performed By: #### B TS, L500.2500, L300.4310, L503.6620, L501.5425, L501.2450, L100.0100, L500.3400, L300.3900, L503.6005 ####[facility] [address] [place], [place], [phone] Magnesiumon 02-27-2024 Magnesium [Mass/Vol] 2.2 mg/dL Normal 1.6-2.6 [facility] Comment on above: Order Comment: Order Date: 11/17/23Order Info: [id number] - CMPOrder Info: [id number] - MGOrder Info: 3016-3 - TSHOrder Info: 3024-7 - T4F Performed By: #### L 500.4050, L503.0105, L506.1000, L501.9985, L501.9520, L501.5200, L506.0400, L100.0100 ####[facility] [address] [place], [address] Partial Thromboplast Timeon 02-27-2024 aPTT Coag (Bld) [Time] 40.6 s High 24.1-36.2 [facility] Comment on above: Performed By: #### B TS, L500.2500, L300.4310, L503.6620, L501.5425, L501.2450, L100.0100, L500.3400, L300.3900, L503.6005 ####[facility] [address] [place], [address] Prothrombin Time w/INRon INR Coag (PPP) [Relative time] 2.6 {INR} Normal [facility] Comment on above: Performed By: #### B TS, L500.2500, L300.4310, L503.6620, L501.5425, L501.2450, L100.0100, L500.3400, L300.3900, L503.6005 ####[facility] [address] [place], [address] PT Coag (PPP) [Time] 27.3 s High 11.7-14.9 [facility] Comment on above: Performed By: #### B TS, L500.2500, L300.4310, L503.6620, L501.5425, L501.2450, L100.0100, L500.3400, L300.3900, L503.6005 ####[facility] [address] [place], [place], [phone] Stool Occult Blood iFOBon STOB Positive Normal [facility] Comment on above: Performed By: #### M 100.7900 ####[facility] [address] [place], [place], [address] T4 Free Directon 02-27-2024 T4 FREE DIRECT 1.43 ng/dL Normal 0.76-1.46 [facility] Comment on above: Order Comment: Order Date: 11/17/23Order Info: [id number] - CMPOrder Info: [id number] - MGOrder Info: [id number] - TSHOrder Info: 3024-7 - T4F Performed By: #### L 500.4050, L503.0105, L506.1000, L501.9985, L501.9520, L501.5200, L506.0400, L100.0100 ####[facility] [address] [place], [place], [address] Thyroid Stim Hormone (TSH)on 02-27-2024 TSH 4.700 uIU/mL High 0.358-3.740 [facility] Comment on above: Order Comment: Order Date: 11/17/23Order Info: [id number] - CMPOrder Info: [id number] - MGOrder Info: 3016-3 - TSHOrder Info: 3024-7 - T4F Performed By: #### L 500.4050, L503.0105, L506.1000, L501.9985, L501.9520, L501.5200, L506.0400, L100.0100 ####[facility] [address] [place], [place], [phone] Type AND Screenon 02-27-2024 ABO and Rh group Nom (Bld) Blood group O Rh(D) positive Normal [facility] Comment on above: Order Comment: A Performed By: #### B TS, L500.2500, L300.4310, L503.6620, L501.5425, L501.2450, L100.0100, L500.3400, L300.3900, L503.6005 ####[facility] [address] [facility] [address] [place], [place], [phone] Vitamin B12on 02-27-2024 Cobalamin (Vitamin B12) [Mass/Vol] 1536 pg/mL High 211-911 [facility] Comment on above: Order Comment: Order Date: 11/17/23Order Info: [id number] - H79Ntflo Info: [id number] - VITD25 Performed By: #### L 500.4050, L503.0105, L506.1000, L501.9985, L501.9520, L501.5200, L506.0400, L100.0100 ####[facility] [address] [place], [address] Vitamin D,25 Hydroxyon 02-26 Vitamin D 25-OH 61.6 ng/mL Normal [facility] Comment on above: Order Comment: Order Date: 11/17/23Order Info: [id number] - [id number] Info: [id number] - VITD25 Result Comment: Viviana min D 25(OH) Status Range Deficiency <20 ng/mL (50nmol/L) Insufficiency 20 - 30 ng/mL (50 - 75 nmol/L) Sufficiency 30 - 100 ng/mL (75 - 250 nmol/L) Toxicity >100 ng/mL (>250 nmol/L) Performed By: #### L 500.4050, L503.0105, L506.1000, L501.9985, L501.9520, L501.5200, L506.0400, L100.0100 ####[facility] [address] [place], [address] Cardiology Visit Reporton Cardiology Visit Report Normal [facility] Basophil percentageOrdered B y: Abena Cardenas on 07-20-2023 Chloride [Moles/Vol] 107 mmol/L 98-107 [facility] Glucose [Mass/Vol] 112 mg/dL 74-106 [facility] Comment on above: Fasting Glucose resu lt from 100 to 125 mg/dL suggests IMPAIRED HOMEOSTASIS per A.D.A. criteria. Potassium [Moles/Vol] 3.6 mmol/L 3.5-5.1 [facility] Sodium [Moles/Vol] 142 mmol/L 136-145 [facility] Laboratory - Chemistry and C hemistry - challengeOrdered By: Abena Cardenas on 07-20-2023 CO2 [Moles/Vol] 32.0 mmol/L 21.0-32.0 [facility] Urea nitrogen/Creatinine [Mass ratio] 15.5 mg/mg 10-20 [facility] No Panel InformationOrdered By: Abena Cardenas on 07-20-2023 Estimated GFR (MDRD) Amer 112 mL/min >60 [facility] Comment on above: GFR Calc Estimated GFR (MDRD) Non-Af Amer 93 mL/min >60 [facility] Comment on above: Non- GFR Calc Serum or plasma calcium don urement (mass/volume)Ordered By: Abena Cardenas on 07-20-2023 Calcium [Mass/Vol] 9.3 mg/dL 8.5-10.1 [facility] Serum or plasma creatinine m easurement (mass/volume)Ordered By: Abena Cardenas on 07-20-2023 Creatinine [Mass/Vol] 0.65 mg/dL 0.55-1.02 [facility] Comment on above: The validity of the calculated GFR & GFRAA in patients over 70 years has not been determined. Clinical correlation is essential. Serum or plasma urea nitroge n measurement (mass/volume)Ordered By: Abena Cardenas on 07-20-2023 Urea nitrogen [Mass/Vol] 10 mg/dL 7-18 [facility] Thin prep Papanicolaou smear with manual screeningOrdered By: Abena Cardenas on 07-20-2023 Thin prep Papanicolaou smear with manual screening 3 5-15 [facility] Basophil percentageOrdered B y: Abena Cardenas on 07-13-2023 Chloride [Moles/Vol] 109 mmol/L 98-107 [facility] Glucose [Mass/Vol] 149 mg/dL 74-106 [facility] Comment on above: Fasting Glucose resu lt greater than or equal to 126 mg/dL suggests DIABETES MELLITUS per A.D.A. criteria. Potassium [Moles/Vol] 3.7 mmol/L 3.5-5.1 [facility] Sodium [Moles/Vol] 142 mmol/L 136-145 [facility] - Chemistry and C hemistry - challengeOrdered By: Abena Cardenas on 07-13-2023 CO2 [Moles/Vol] 29.0 mmol/L 21.0-32.0 [facility] Natriuretic peptide B (Bld) [Mass/Vol] 498.6 pg/mL 0-100 [facility] Urea nitrogen/Creatinine [Mass ratio] 18.3 mg/mg 10-20 [facility] No Panel InformationOrdered By: Abena Cardenas on 07-13-2023 Estimated GFR (MDRD) Amer 136 mL/min >60 [facility] Comment on above: GFR Calc Estimated GFR (MDRD) Non-Af Amer 112 mL/min >60 [facility] Comment on above: Non- GFR Calc Serum or plasma calcium don urement (mass/volume)Ordered By: Abena Cardenas on 07-13-2023 Calcium [Mass/Vol] 8.9 mg/dL 8.5-10.1 [facility] Serum or plasma creatinine m easurement (mass/volume)Ordered By: Abena Cardenas on 07-13-2023 Creatinine [Mass/Vol] 0.55 mg/dL 0.55-1.02 [facility] Comment on above: The validity of the calculated GFR & GFRAA in patients over 70 years has not been determined. Clinical correlation is essential. Serum or plasma urea nitroge n measurement (mass/volume)Ordered By: Abena Cardenas on 07-13-2023 Urea nitrogen [Mass/Vol] 10 mg/dL 7-18 [facility] Thin prep Papanicolaou smear with manual screeningOrdered By: Abena Cardenas on 07-13-2023 Thin prep Papanicolaou smear with manual screening 4 5-15 [facility] Basophil percentageOrdered B y: Blue Lambert on 04-26-2023 Bilirubin [Mass/Vol] 4.60 mg/dL 0.20-1.00 [facility] Comment on above: For patients on eltr ombopag therapy, use of Dimension [place] TBIL is not recommended. Cholesterol [Mass/Vol] 80 mg/dL <200 [facility] Comment on above: <200 mg/dL Desirable 200-240 mg/dL Borderline >240 mg/dL High Risk Protein [Mass/Vol] 5.7 g/dL 6.4-8.2 [facility] Triglyceride [Mass/Vol] 41 mg/dL <199 [facility] Comment on above: The drugs N-Acetylcy steine and Metamizole may falsely depress this assay.Serum Triglycerides Reference Interval Normal <150 mg/dL Borderline high 150 - 199 mg/dL High 200 - 499 mg/dL Very High > or = 500 mg/dL Direct bilirubinOrdered By: Blue Lambert on 04-26-2023 Bilirubin.direct [Mass/Vol] 0.77 mg/dL 0.00-0.30 [facility] - Chemistry and C hemistry - challengeOrdered By: Blue Lambert on 04-26-2023 ALP [Catalytic activity/Vol] 124 U/L 45-117 [facility] ALT [Catalytic activity/Vol] 22 U/L 13-56 [facility] Globulin (S) [Mass/Vol] 2.3 g/dL 2.2-4.2 [facility] Serum or plasma albumin don urement (mass/volume)Ordered By: Blue Lamebrt on 04-26-2023 Albumin [Mass/Vol] 3.4 g/dL 3.2-5.0 [facility] Serum or plasma cholesterol in HDL measurement (mass/volume)Ordered By: Blue Lambert on 04-26-2023 Cholesterol in HDL [Mass/Vol] 45 mg/dL >40 [facility] Comment on above: The drugs N-Acetylcy steine and Metamizole may falsely depress this assay. Reference Range HDL <40 mg/dL Low HDL Cholesterol HDL >or= 60 mg/dL High HDL Cholesterol Serum or plasma cholesterol in VLDL measurement (mass/volume)Ordered By: Blue Lambert on 04-26-2023 Cholesterol in VLDL [Mass/Vol] 8 mg/dL 5-40 [facility] Serum or plasma low density lipoprotein (LDL) cholesterol measurement (mass/volume)Ordered By: Blue Lambert on 04-26-2023 Cholesterol in LDL [Mass/Vol] 27 mg/dL 0-130 [facility] Thin prep Papanicolaou smear with manual screeningOrdered By: Blue Lambert on 04-26-2023 Thin prep Papanicolaou smear with manual screening 22 U/L 15-37 [facility] Absolute lymphocyte countOrd ered By: Blue Lambert on 04-20-2023 Lymphocytes Auto (Unsp spec) [#/Vol] 2.92 10*3/uL 0.83-4.51 [facility] Basophil percentageOrdered B y: Blue Lambert on 04-20-2023 Basophils/100 WBC (Bld) 1.2 % 0-1 [facility] Bilirubin [Mass/Vol] 4.40 mg/dL 0.20-1.00 [facility] Comment on above: For patients on eltr ombopag therapy, use of Dimension [place] TBIL is not recommended. Chloride [Moles/Vol] 107 mmol/L 98-107 [facility] Eosinophils/100 WBC (Bld) 1.6 % 0-5 [facility] Glucose [Mass/Vol] 101 mg/dL 74-106 [facility] Comment on above: Fasting Glucose resu lt from 100 to 125 mg/dL suggests IMPAIRED HOMEOSTASIS per A.D.A. criteria. Neutrophils (Bld) [#/Vol] 3.0 10*3/uL 2.0-7.7 [facility] Neutrophils/100 WBC (Bld) 40.4 % 47-70 [facility] Potassium [Moles/Vol] 3.6 mmol/L 3.5-5.1 [facility] Protein [Mass/Vol] 6.1 g/dL 6.4-8.2 [facility] Sodium [Moles/Vol] 142 mmol/L 136-145 [facility] WBC (Bld) [#/Vol] 7.5 10*3/uL 4.4-11.0 [facility] Blood erythrocytes count (nu mber/volume)Ordered By: Blue Lambert on 04-20-2023 RBC (Bld) [#/Vol] 3.94 10*6/uL 4.2-5.4 [facility] Blood hemoglobin measurement (mass/volume)Ordered By: Blue Lambert on 04-20-2023 Hemoglobin (Bld) [Mass/Vol] 12.8 g/dL 12.0-15.0 [facility] Blood lymphocytes/100 leukoc ytesOrdered By: Blue Lambert on 04-20-2023 Lymphocytes/100 WBC (Bld) 38.8 % 19-41 [facility] Blood monocytes/100 leukocyt esOrdered By: Blue Lambert on 04-20-2023 Monocytes/100 WBC (Bld) 17.7 % 0-10 [facility] Blood platelet mean volumeOr dered By: Blue Lambert on 04-20-2023 Platelet mean volume (Bld) [Entitic vol] 11.3 fL 6.2-12.0 [facility] Blood poikilocytosis detecti on by light microscopyOrdered By: Blue Lambert on 04-20-2023 Poikilocytosis LM Ql (Bld) 1+ [facility] Determination of erythrocyte mean corpuscular volume (MCV)Ordered By: Blue Lambert on 04-20-2023 MCV (RBC) [Entitic vol] 98.5 fL 81-99 [facility] Hematocrit Auto (Bld) [Volum e fraction]Ordered By: Blue Lambert on 04-20-2023 Hematocrit (Bld) [Volume fraction] 38.8 % 37-47 [facility] - Chemistry and C hemistry - challengeOrdered By: Blue Lambert on 04-20-2023 ALP [Catalytic activity/Vol] 137 U/L 45-117 [facility] ALT [Catalytic activity/Vol] 23 U/L 13-56 [facility] CO2 [Moles/Vol] 29.0 mmol/L 21.0-32.0 [facility] Free T4 [Mass/Vol] 1.14 ng/dL 0.76-1.46 [facility] Globulin (S) [Mass/Vol] 2.4 g/dL 2.2-4.2 [facility] Magnesium [Mass/Vol] 2.3 mg/dL 1.6-2.6 [facility] Urea nitrogen/Creatinine [Mass ratio] 16.9 mg/mg 10-20 [facility] - Hematology and Cell countsOrdered By: Blue Lambert on 04-20-2023 Erythrocyte distribution width (RBC) [Entitic vol] 97.0 fL 35.1-43.9 [facility] Erythrocyte distribution width (RBC) [Ratio] 27.2 % 11.6-14.6 [facility] Immature granulocytes/100 WBC (Bld) 0.300 % 0.0-0.9 [facility] Comment on above: IG% - Immature Granu locytes (promyelocytes, myelocytes and metamyelocytes) > 1% indicates that a LEFT SHIFT is Present. MCH (RBC) [Entitic mass] 32.5 pg 27.0-32.0 [facility] Nucleated RBC/100 WBC (Bld) [Ratio] 0 % 0-5 [facility] MCHC Auto (RBC) [Mass/Vol]Or dered By: Blue Lambert on 04-20-2023 MCHC (RBC) [Mass/Vol] 33.0 g/dL 32-36 [facility] No Panel InformationOrdered By: Blue Lambert on 04-20-2023 Estimated GFR (MDRD) Amer 124 mL/min >60 [facility] Comment on above: GFR Calc Estimated GFR (MDRD) Non-Af Amer 103 mL/min >60 [facility] Comment on above: Non- GFR Calc Thyroid Stimulating Hormone (TSH) 5.36 uIU/mL 0.358-3.74 [facility] Platelets bldOrdered By: Rinku Lambert on 04-20-2023 Platelets (Bld) [#/Vol] 202 10*3/uL 150-450 [facility] Serum or plasma albumin don urement (mass/volume)Ordered By: Blue Lambert on 04-20-2023 Albumin [Mass/Vol] 3.7 g/dL 3.2-5.0 [facility] Serum or plasma albumin/glob ulin mass ratioOrdered By: Blue Lambert on 04-20-2023 Albumin/Globulin [Mass ratio] 1.5 {ratio} 0.9-2.4 [facility] Serum or plasma calcium don urement (mass/volume)Ordered By: Blue Lambert on 04-20-2023 Calcium [Mass/Vol] 8.6 mg/dL 8.5-10.1 [facility] Serum or plasma creatinine m easurement (mass/volume)Ordered By: Blue Lambert on 04-20-2023 Creatinine [Mass/Vol] 0.59 mg/dL 0.55-1.02 [facility] Comment on above: The validity of the calculated GFR & GFRAA in patients over 70 years has not been determined. Clinical correlation is essential. Serum or plasma urea nitroge n measurement (mass/volume)Ordered By: Blue Lambert on 04-20-2023 Urea nitrogen [Mass/Vol] 10 mg/dL 7-18 [facility] Target cell detectionOrdered By: Blue Lambert on 04-20-2023 Target cells LM Ql (Bld) 2+ [facility] Thin prep Papanicolaou smear with manual screeningOrdered By: Blue Lambert on 04-20-2023 Thin prep Papanicolaou smear with manual screening 23 U/L 15-37 [facility] Thin prep Papanicolaou smear with manual screening 6 5-15 [facility] Whole blood hemoglobin A1c/t otal hemoglobin ratio (mass fraction)Ordered By: Blue Lambert on 04-20-2023 HbA1c (Bld) [Mass fraction] 5.5 % 3.8-5.6 [facility] Comment on above: Normal < 5.7 % Predi abetic 5.7 - 6.4 % Diabetic >or= 6.5 % Please note range changes. Laboratory - Chemistry and C hemistry - challengeOrdered By: Blue Lambert on 01-19-2023 Free T4 [Mass/Vol] 1.26 ng/dL 0.76-1.46 [facility] No Panel InformationOrdered By: Blue Lambert on 01-19-2023 Thyroglobulin Antibody < 1.0 IU/mL 0.0-0.9 [facility] Comment on above: Thyroglobulin Antibo dy measured by Laverne CoulterMethodology Thyroglobulin Level 20.1 ng/mL 1.5-38.5 [facility] Comment on above: According to the [facility] [employer] of Clinical [employer]ochemistry,the reference interval for Thyroglobulin (TG) should berelated to euthyroid patients and not for patients whounderwent thyroidectomy. TG reference intervals for thesepatients depend on the residual mass of the thyroid tissueleft after surgery. Establishing a post-operative baselineis recommended. The assay limit of quantitation is 0.1ng/mLThyroglobulin measured by Laverne Jules ImmunometricAssay Serum or plasma thyroperoxid ase antibody assay (units/volume)Ordered By: Bleu Lambert on 01-19-2023 TPO Ab Qn [IU]/mL 0-34 [facility] Comment on above: Performed at: [address] Director: Kevin Condon PhD, Phone: [phone] Basophil percentageOrdered B y: Abena Cardenas on 01-18-2023 Chloride [Moles/Vol] 107 mmol/L 98-107 [facility] Glucose [Mass/Vol] 137 mg/dL 74-106 [facility] Comment on above: Fasting Glucose resu lt greater than or equal to 126 mg/dL suggests DIABETES MELLITUS per A.D.A. criteria. Potassium [Moles/Vol] 3.8 mmol/L 3.5-5.1 [facility] Sodium [Moles/Vol] 143 mmol/L 136-145 [facility] Laboratory - Chemistry and C hemistry - challengeOrdered By: Abena Cardenas on 01-18-2023 CO2 [Moles/Vol] 32.0 mmol/L 21.0-32.0 [facility] Urea nitrogen/Creatinine [Mass ratio] 12.9 mg/mg 10-20 [facility] No Panel InformationOrdered By: Abena Cardenas on 01-18-2023 Estimated GFR (MDRD) Amer 102 mL/min >60 [facility] Comment on above: GFR Calc Estimated GFR (MDRD) Non-Af Amer 85 mL/min >60 [facility] Comment on above: Non- GFR Calc Serum or plasma calcium don urement (mass/volume)Ordered By: Abena Cardenas on 01-18-2023 Calcium [Mass/Vol] 9.0 mg/dL 8.5-10.1 [facility] Serum or plasma creatinine m easurement (mass/volume)Ordered By: Abena Cardenas on 01-18-2023 Creatinine [Mass/Vol] 0.70 mg/dL 0.55-1.02 [facility] Comment on above: The validity of the calculated GFR & GFRAA in patients over 70 years has not been determined. Clinical correlation is essential. Serum or plasma urea nitroge n measurement (mass/volume)Ordered By: Abena Cardenas on 01-18-2023 Urea nitrogen [Mass/Vol] 9 mg/dL 7-18 [facility] Thin prep Papanicolaou smear with manual screeningOrdered By: Abena Cardenas on 01-18-2023 Thin prep Papanicolaou smear with manual screening 4 5-15 [facility] Absolute lymphocyte countOrd ered By: Blue Lambert on 01-10-2023 Lymphocytes Auto (Unsp spec) [#/Vol] 3.02 10*3/uL 0.83-4.51 [facility] Basophil percentageOrdered B y: Blue Lambert on 01-10-2023 Basophils/100 WBC (Bld) 0.9 % 0-1 [facility] Bilirubin [Mass/Vol] 4.40 mg/dL 0.20-1.00 [facility] Comment on above: For patients on eltr ombopag therapy, use of Dimension [place] TBIL is not recommended. Chloride [Moles/Vol] 103 mmol/L 98-107 [facility] Eosinophils/100 WBC (Bld) 1.6 % 0-5 [facility] Glucose [Mass/Vol] 125 mg/dL 74-106 [facility] Comment on above: Fasting Glucose resu lt from 100 to 125 mg/dL suggests IMPAIRED HOMEOSTASIS per A.D.A. criteria. Neutrophils (Bld) [#/Vol] 4.1 10*3/uL 2.0-7.7 [facility] Neutrophils/100 WBC (Bld) 47.3 % 47-70 [facility] Potassium [Moles/Vol] 3.2 mmol/L 3.5-5.1 [facility] Protein [Mass/Vol] 6.2 g/dL 6.4-8.2 [facility] Sodium [Moles/Vol] 137 mmol/L 136-145 [facility] WBC (Bld) [#/Vol] 8.7 10*3/uL 4.4-11.0 [facility] Blood erythrocytes count (nu mber/volume)Ordered By: Blue Lambert on 01-10-2023 RBC (Bld) [#/Vol] 3.82 10*6/uL 4.2-5.4 [facility] Blood hemoglobin measurement (mass/volume)Ordered By: Blue Lambert on 01-10-2023 Hemoglobin (Bld) [Mass/Vol] 12.9 g/dL 12.0-15.0 [facility] Blood lymphocytes/100 leukoc ytesOrdered By: Blue Lambert on 01-10-2023 Lymphocytes/100 WBC (Bld) 34.9 % 19-41 [facility] Blood monocytes/100 leukocyt esOrdered By: Blue Lambert on 01-10-2023 Monocytes/100 WBC (Bld) 15.0 % 0-10 [facility] Blood platelet mean volumeOr dered By: Blue Lambert on 01-10-2023 Platelet mean volume (Bld) [Entitic vol] 10.3 fL 6.2-12.0 [facility] Determination of erythrocyte mean corpuscular volume (MCV)Ordered By: Blue Lambert on 01-10-2023 MCV (RBC) [Entitic vol] 98.4 fL 81-99 [facility] Hematocrit Auto (Bld) [Volum e fraction]Ordered By: Blue Lambert on 01-10-2023 Hematocrit (Bld) [Volume fraction] 37.6 % 37-47 [facility] Laboratory - Chemistry and C hemistry - challengeOrdered By: Blue Lambert on 01-10-2023 ALP [Catalytic activity/Vol] 125 U/L 45-117 [facility] ALT [Catalytic activity/Vol] 24 U/L 13-56 [facility] CO2 [Moles/Vol] 28.0 mmol/L 21.0-32.0 [facility] Cobalamin (Vitamin B12) [Mass/Vol] 876 pg/mL 211-911 [facility] Globulin (S) [Mass/Vol] 2.4 g/dL 2.2-4.2 [facility] Magnesium [Mass/Vol] 2.0 mg/dL 1.6-2.6 [facility] Urea nitrogen/Creatinine [Mass ratio] 16.1 mg/mg 10-20 [facility] Laboratory - Chemistry and C hemistry - challengeOrdered By: Abena Cardenas on 01-10-2023 Natriuretic peptide B (Bld) [Mass/Vol] 470.8 pg/mL 0-100 [facility] Laboratory - Hematology and Cell countsOrdered By: Blue Lambert on 01-10-2023 Anisocytosis Ql (Bld) 2+ [facility] Erythrocyte distribution width (RBC) [Entitic vol] 89.5 fL 35.1-43.9 [facility] Erythrocyte distribution width (RBC) [Ratio] 24.5 % 11.6-14.6 [facility] Immature granulocytes/100 WBC (Bld) 0.300 % 0.0-0.9 [facility] Comment on above: IG% - Immature Granu locytes (promyelocytes, myelocytes and metamyelocytes) > 1% indicates that a LEFT SHIFT is Present. MCH (RBC) [Entitic mass] 33.8 pg 27.0-32.0 [facility] Nucleated RBC/100 WBC (Bld) [Ratio] 0 % 0-5 [facility] MCHC Auto (RBC) [Mass/Vol]Or dered By: Blue Lambert on 01-10-2023 MCHC (RBC) [Mass/Vol] 34.3 g/dL 32-36 [facility] No Panel InformationOrdered By: Blue Lambert on 01-10-2023 Estimated GFR (MDRD) Amer 117 mL/min >60 [facility] Comment on above: GFR Calc Estimated GFR (MDRD) Non-Af Amer 97 mL/min >60 [facility] Comment on above: Non- GFR Calc Thyroid Stimulating Hormone (TSH) 4.96 uIU/mL 0.358-3.74 [facility] Vitamin D 25-Hydroxy 61.9 ng/mL [facility] Comment on above: Vitamin D 25(OH) Sta tus Range Deficiency <20 ng/mL (50nmol/L) Insufficiency 20 - 30 ng/mL (50 - 75 nmol/L) Sufficiency 30 - 100 ng/mL (75 - 250 nmol/L) Toxicity >100 ng/mL (>250 nmol/L) Platelets bldOrdered By: Rinku Lambert on 01-10-2023 Platelets (Bld) [#/Vol] 221 10*3/uL 150-450 [facility] Serum or plasma albumin don urement (mass/volume)Ordered By: Blue Lambert on 01-10-2023 Albumin [Mass/Vol] 3.8 g/dL 3.2-5.0 [facility] Serum or plasma albumin/glob ulin mass ratioOrdered By: Blue Lambert on 01-10-2023 Albumin/Globulin [Mass ratio] 1.6 {ratio} 0.9-2.4 [facility] Serum or plasma calcium don urement (mass/volume)Ordered By: Blue Lambert on 01-10-2023 Calcium [Mass/Vol] 9.2 mg/dL 8.5-10.1 [facility] Serum or plasma creatinine m easurement (mass/volume)Ordered By: Blue Lambert on 01-10-2023 Creatinine [Mass/Vol] 0.62 mg/dL 0.55-1.02 [facility] Comment on above: The validity of the calculated GFR & GFRAA in patients over 70 years has not been determined. Clinical correlation is essential. Serum or plasma urea nitroge n measurement (mass/volume)Ordered By: lBue Lambert on 01-10-2023 Urea nitrogen [Mass/Vol] 10 mg/dL 7-18 [facility] Thin prep Papanicolaou smear with manual screeningOrdered By: Blue Lambert on 01-10-2023 Thin prep Papanicolaou smear with manual screening 24 U/L 15-37 [facility] Thin prep Papanicolaou smear with manual screening 6 5-15 [facility] Whole blood hemoglobin A1c/t otal hemoglobin ratio (mass fraction)Ordered By: Blue Lambert on 01-10-2023 HbA1c (Bld) [Mass fraction] 5.7 % 3.8-5.6 [facility] Comment on above: Normal < 5.7 % Predi abetic 5.7 - 6.4 % Diabetic >or= 6.5 % Please note range changes. Basophil percentageon 2021 Bilirubin [Mass/Vol] 4.20 mg/dL 0.20-1.00 [facility] Work Phone: Comment on above: For patients on eltr ombopag therapy, use of Dimension [place] TBIL is not recommended. Chloride [Moles/Vol] 103 mmol/L 98-107 [facility] Work Phone: Glucose [Mass/Vol] 99 mg/dL 74-106 [facility] Work Phone: Potassium [Moles/Vol] 3.7 mmol/L 3.5-5.1 [facility] Work Phone: Protein [Mass/Vol] 6.3 g/dL 6.4-8.2 [facility] Work Phone: Sodium [Moles/Vol] 138 mmol/L 136-145 [facility] Work Phone: Laboratory - Chemistry and C hemistry - challengeon 01-28-2022 ALP [Catalytic activity/Vol] 90 U/L 45-117 [facility] Work Phone: ALT [Catalytic activity/Vol] 25 U/L 13-56 [facility] Work Phone: CO2 [Moles/Vol] 29.0 mmol/L 21.0-32.0 [facility] Work Phone: Globulin (S) [Mass/Vol] 2.5 g/dL 2.2-4.2 [facility] Work Phone: Urea nitrogen/Creatinine [Mass ratio] 13.5 mg/mg 10-20 [facility] Work Phone: No Panel Informationon 01-28 Estimated GFR (MDRD) Amer 124 mL/min >60 [facility] Work Phone: Comment on above: GFR Calc Estimated GFR (MDRD) Non-Af Amer 103 mL/min >60 [facility] Work Phone: Comment on above: Non- GFR Calc Serum or plasma albumin don urement (mass/volume)on 01-28-2022 Albumin [Mass/Vol] 3.8 g/dL 3.2-5.0 [facility] Work Phone: Serum or plasma albumin/glob ulin mass ratioon 01-28-2022 Albumin/Globulin [Mass ratio] 1.5 {ratio} 0.9-2.4 [facility] Work Phone: Serum or plasma calcium don urement (mass/volume)on 01-28-2022 Calcium [Mass/Vol] 9.1 mg/dL 8.5-10.1 [facility] Work Phone: Serum or plasma creatinine m easurement (mass/volume)on 01-28-2022 Creatinine [Mass/Vol] 0.59 mg/dL 0.55-1.02 [facility] Work Phone: Comment on above: The validity of the calculated GFR & GFRAA in patients over 70 years has not been determined. Clinical correlation is essential. Serum or plasma urea nitroge n measurement (mass/volume)on 01-28-2022 Urea nitrogen [Mass/Vol] 8 mg/dL 7-18 [facility] Work Phone: Thin prep Papanicolaou smear with manual screeningon 01-28-2022 Thin prep Papanicolaou smear with manual screening 16 U/L 15-37 [facility] Work Phone: Thin prep Papanicolaou smear with manual screening 6 5-15 [facility] Work Phone: Whole blood hemoglobin A1c/t otal hemoglobin ratio (mass fraction)on 01-28-2022 HbA1c (Bld) [Mass fraction] 6.0 % 3.8-5.6 [facility] Work Phone: Comment on above: Normal < 5.7 % Predi abetic 5.7 - 6.4 % Diabetic >or= 6.5 % Please note range changes. Basophil percentageon 2021 Chloride [Moles/Vol] 105 mmol/L 98-107 [facility] Work Phone: Glucose [Mass/Vol] 139 mg/dL 74-106 [facility] Work Phone: Comment on above: Fasting Glucose resu lt greater than or equal to 126 mg/dL suggests DIABETES MELLITUS per A.D.A. criteria. Potassium [Moles/Vol] 3.6 mmol/L 3.5-5.1 [facility] Work Phone: Sodium [Moles/Vol] 140 mmol/L 136-145 [facility] Work Phone: Laboratory - Chemistry and C hemistry - challengeon 01-18-2022 CO2 [Moles/Vol] 28.0 mmol/L 21.0-32.0 [facility] Work Phone: Magnesium [Mass/Vol] 2.3 mg/dL 1.6-2.6 [facility] Work Phone: Urea nitrogen/Creatinine [Mass ratio] 16.8 mg/mg 10-20 [facility] Work Phone: No Panel Informationon 01-18 Estimated GFR (MDRD) Amer 111 mL/min >60 [facility] Work Phone: Comment on above: GFR Calc Estimated GFR (MDRD) Non-Af Amer 91 mL/min >60 [facility] Work Phone: Comment on above: Non- GFR Calc Serum or plasma calcium don urement (mass/volume)on 01-18-2022 Calcium [Mass/Vol] 9.7 mg/dL 8.5-10.1 [facility] Work Phone: Serum or plasma creatinine m easurement (mass/volume)on 01-18-2022 Creatinine [Mass/Vol] 0.66 mg/dL 0.55-1.02 [facility] Work Phone: Comment on above: The validity of the calculated GFR & GFRAA in patients over 70 years has not been determined. Clinical correlation is essential. Serum or plasma urea nitroge n measurement (mass/volume)on 01-18-2022 Urea nitrogen [Mass/Vol] 11 mg/dL 7-18 [facility] Work Phone: Thin prep Papanicolaou smear with manual screeningon 01-18-2022 Thin prep Papanicolaou smear with manual screening 7 5-15 [facility] Work Phone: Absolute lymphocyte counton 12-30-2021 Lymphocytes Auto (Unsp spec) [#/Vol] 3.58 10*3/uL 0.83-4.51 [facility] Work Phone: Basophil percentageon 2021 Basophils/100 WBC (Bld) 1.1 % 0-1 [facility] Work Phone: Bilirubin [Mass/Vol] 4.40 mg/dL 0.20-1.00 [facility] Work Phone: Comment on above: For patients on eltr ombopag therapy, use of Dimension [place] TBIL is not recommended. Chloride [Moles/Vol] 109 mmol/L 98-107 [facility] Work Phone: Cholesterol [Mass/Vol] 108 mg/dL <200 [facility] Work Phone: Comment on above: <200 mg/dL Desirable 200-240 mg/dL Borderline >240 mg/dL High Risk Eosinophils/100 WBC (Bld) 1.5 % 0-5 [facility] Work Phone: Glucose [Mass/Vol] 110 mg/dL 74-106 [facility] Work Phone: Comment on above: Fasting Glucose resu lt from 100 to 125 mg/dL suggests IMPAIRED HOMEOSTASIS per A.D.A. criteria. Neutrophils (Bld) [#/Vol] 4.1 10*3/uL 2.0-7.7 [facility] Work Phone: Neutrophils/100 WBC (Bld) 44.6 % 47-70 [facility] Work Phone: Potassium [Moles/Vol] 3.8 mmol/L 3.5-5.1 [facility] Work Phone: Protein [Mass/Vol] 6.5 g/dL 6.4-8.2 [facility] Work Phone: Sodium [Moles/Vol] 140 mmol/L 136-145 [facility] Work Phone: Triglyceride [Mass/Vol] 59 mg/dL <199 [facility] Work Phone: Comment on above: The drugs N-Acetylcy steine and Metamizole may falsely depress this assay.Serum Triglycerides Reference Interval Normal <150 mg/dL Borderline high 150 - 199 mg/dL High 200 - 499 mg/dL Very High > or = 500 mg/dL WBC (Bld) [#/Vol] 9.2 10*3/uL 4.4-11.0 [facility] Work Phone: Blood erythrocytes count (nu mber/volume)on 12-30-2021 RBC (Bld) [#/Vol] 4.04 10*6/uL 4.2-5.4 [facility] Work Phone: Blood hemoglobin measurement (mass/volume)on 12-30-2021 Hemoglobin (Bld) [Mass/Vol] 13.5 g/dL 12.0-15.0 [facility] Work Phone: Blood lymphocytes/100 leukoc yteson 12-30-2021 Lymphocytes/100 WBC (Bld) 39.1 % 19-41 [facility] Work Phone: Blood monocytes/100 leukocyt eson 12-30-2021 Monocytes/100 WBC (Bld) 13.5 % 0-10 [facility] Work Phone: Blood platelet mean volumeon 12-30-2021 Platelet mean volume (Bld) [Entitic vol] 10.6 fL 6.2-12.0 [facility] Work Phone: Determination of erythrocyte mean corpuscular volume (MCV)on 12-30-2021 MCV (RBC) [Entitic vol] 97.5 fL 81-99 [facility] Work Phone: Hematocrit Auto (Bld) [Volum e fraction]on 12-30-2021 Hematocrit (Bld) [Volume fraction] 39.4 % 37-47 [facility] Work Phone: Laboratory - Chemistry and C hemistry - challengeon 12-30-2021 ALP [Catalytic activity/Vol] 90 U/L 45-117 [facility] Work Phone: ALT [Catalytic activity/Vol] 24 U/L 13-56 [facility] Work Phone: CO2 [Moles/Vol] 25.0 mmol/L 21.0-32.0 [facility] Work Phone: Cobalamin (Vitamin B12) [Mass/Vol] 867 pg/mL 211-911 [facility] Work Phone: Globulin (S) [Mass/Vol] 2.5 g/dL 2.2-4.2 [facility] Work Phone: Magnesium [Mass/Vol] 2.3 mg/dL 1.6-2.6 [facility] Work Phone: Urea nitrogen/Creatinine [Mass ratio] 14.3 mg/mg 10-20 [facility] Work Phone: Laboratory - Hematology and Cell countson 12-30-2021 Anisocytosis Ql (Bld) 1+ [facility] Work Phone: Erythrocyte distribution width (RBC) [Entitic vol] 86.4 fL 35.1-43.9 [facility] Work Phone: Erythrocyte distribution width (RBC) [Ratio] 23.7 % 11.6-14.6 [facility] Work Phone: Immature granulocytes/100 WBC (Bld) 0.200 % 0.0-0.9 [facility] Work Phone: Comment on above: IG% - Immature Granu locytes (promyelocytes, myelocytes and metamyelocytes) > 1% indicates that a LEFT SHIFT is Present. MCH (RBC) [Entitic mass] 33.4 pg 27.0-32.0 [facility] Work Phone: Nucleated RBC/100 WBC (Bld) [Ratio] 0 % 0-5 [facility] Work Phone: MCHC Auto (RBC) [Mass/Vol]on 12-30-2021 MCHC (RBC) [Mass/Vol] 34.3 g/dL 32-36 [facility] Work Phone: No Panel Informationon 12-30 Estimated GFR (MDRD) Amer 116 mL/min >60 [facility] Work Phone: Comment on above: GFR Calc Estimated GFR (MDRD) Non-Af Amer 96 mL/min >60 [facility] Work Phone: Comment on above: Non- GFR Calc Thyroid Stimulating Hormone (TSH) 3.63 uIU/mL 0.358-3.74 [facility] Work Phone: Vitamin D 25-Hydroxy 63.7 ng/mL [facility] Work Phone: Comment on above: Vitamin D 25(OH) Sta tus Range Deficiency <20 ng/mL (50nmol/L) Insufficiency 20 - 30 ng/mL (50 - 75 nmol/L) Sufficiency 30 - 100 ng/mL (75 - 250 nmol/L) Toxicity >100 ng/mL (>250 nmol/L) Platelets bldon 12-30-2021 Platelets (Bld) [#/Vol] 222 10*3/uL 150-450 [facility] Work Phone: Serum or plasma albumin don urement (mass/volume)on 12-30-2021 Albumin [Mass/Vol] 4.0 g/dL 3.2-5.0 [facility] Work Phone: Serum or plasma albumin/glob ulin mass ratioon 12-30-2021 Albumin/Globulin [Mass ratio] 1.6 {ratio} 0.9-2.4 [facility] Work Phone: Serum or plasma calcium don urement (mass/volume)on 12-30-2021 Calcium [Mass/Vol] 9.5 mg/dL 8.5-10.1 [facility] Work Phone: Serum or plasma cholesterol in HDL measurement (mass/volume)on 12-30-2021 Cholesterol in HDL [Mass/Vol] 48 mg/dL >40 [facility] Work Phone: Comment on above: The drugs N-Acetylcy steine and Metamizole may falsely depress this assay. Reference Range HDL <40 mg/dL Low HDL Cholesterol HDL >or= 60 mg/dL High HDL Cholesterol Serum or plasma cholesterol in VLDL measurement (mass/volume)on 12-30-2021 Cholesterol in VLDL [Mass/Vol] 12 mg/dL 5-40 [facility] Work Phone: Serum or plasma creatinine m easurement (mass/volume)on 12-30-2021 Creatinine [Mass/Vol] 0.63 mg/dL 0.55-1.02 [facility] Work Phone: Comment on above: The validity of the calculated GFR & GFRAA in patients over 70 years has not been determined. Clinical correlation is essential. Serum or plasma low density lipoprotein (LDL) cholesterol measurement (mass/volume)on 12-30-2021 Cholesterol in LDL [Mass/Vol] 48 mg/dL 0-130 [facility] Work Phone: Serum or plasma urea nitroge n measurement (mass/volume)on 12-30-2021 Urea nitrogen [Mass/Vol] 9 mg/dL 7-18 [facility] Work Phone: Thin prep Papanicolaou smear with manual screeningon 12-30-2021 Thin prep Papanicolaou smear with manual screening 20 U/L 15-37 [facility] Work Phone: Thin prep Papanicolaou smear with manual screening 6 5-15 [facility] Work Phone: Whole blood hemoglobin A1c/t otal hemoglobin ratio (mass fraction)on 12-30-2021 HbA1c (Bld) [Mass fraction] 6.0 % 3.8-5.6 [facility] Work Phone: Comment on above: Normal < 5.7 % Predi abetic 5.7 - 6.4 % Diabetic >or= 6.5 % Please note range changes. OBSOLETEon 05-28-2017 OBSOLETE Refill (SULEMANPWS) MAGGIE BANDA RA ([id number]) 1935 [facility] Time Provider Hoyaxmxerx29/30/17 CHULA CASTILLO During your visit today, we recorded the following information about you:Yumiko Andrade Ma 05/31/2017 11:39 AM SignedRX INSTRUCTIONS:Pharmacy initiated this request. No need to notify patient.Last OV: 08/31/16 with PCPLast refill: 11/29/16 With 90 and 1 refillsLast oarrs report completed: N/A PLEASE REVIEW ON EPICFollow up: No F/U arden scheduledYumiko Castillo MD 05/31/2017 1:26 PM SignedThe following approved medication requests have been transmitted electronically.OK 1 fill. She'll be due for appt by August.Is patient planning to follow Dr. Castillo to [place] or need to establish withnew physician in [place]?Lab is ordered to have drawn prior to appt.Refill on 05/28/17-BASIC METABOLIC PNL-HGB [id number] Prescriptions Disp Refills lisinopril-hydrochlorothi azide (PRINZIDE,ZESTORETIC) 10-12.5 mg per tablet 90tablet 0 Sig: TAKE 1 TABLET DAILY DAY: No Authorizing Provider: CHULA CASTILLO MDLori Parsons LPN 05/31/2017 3:49 PM SignedPt notified, she states she will est with a provider in [place]. Thefollowing approved medication requests have been transmitted electronically.Signed Prescriptions Disp Refills lisinopril-hydrochlorothi azide (PRINZIDE,ZESTORETIC) 10-12.5 mg per tablet 90tablet 0 Sig: TAKE 1 TABLET DAILY DAY: No Authorizing Provider: CHULA CASTILLO As of Date: 05/28/2017 Noted Allergy ReactionBENADRYL (DIPHENHYDRAMINE HCL) 02/26/2005 5 - Intolerance Comments: insomnia, hyperCIPROFLOXACIN 07/04/2013 8 - GI Upset Comments: constipationTRIMOX (AMOXICILLIN) 02/26/2005 7 - SwellingDate Reviewed: 05/07/2017Reviewed by: Cait Urena LPN - Fully AssessedReason for Visit: Refill Request [94]Primary Visit Diagnosis:Essential hypertension [I10] Other Visit Diagnosis:Hyperglycemia [R73.9]Order(s):lisinopri l-hydrochlorothiazide (PRINZIDE,ZESTORETIC) 10-12.5 mg per tabletTAKE 1 TABLET DAILYDisp: 90 tabletRfl: 0 BASIC METABOLIC PNL [SQBMP] Order #: [id number] FUTURE HGB A1C [OWELP7M] Order #: [id number] FUTUREPrescriptions as of 05/28/2017 Sig: LISINOPRIL 10 MG-HYDROCHLOROT* TAKE 1 TABLET DAILY AMLODIPINE 2.5 MG TABLET Take 1 tablet by mouth once d* FLUTICASONE 50 MCG/ACTUATION * Use 1 Meta in each nostril o* TUMS 500 ORAL Take by mouth. ASPIRIN 81 MG TABLET,DELAYED * Take 81 mg by mouth once martín* CALCIUM-VITAMIN D3-VITAMIN K * Take 1 tablet by mouth once d* * CHOLECALCIFEROL (VITAMIN D3) * take 2 tablets daily * FISH OIL 1,000 MG CAPSULE Take one(1) tablet daily.Problem List As Of Date 05/28/2017 Noted Resolved Persistent disorder of initiating or maintainin*INVALID FOR*03/10/2010 Essential hypertension [I10] INVALID FOR* More... PRURITUS [L29.9] INVALID FOR*03/10/2010 OSTEOPENIA [M89.9, M94.9] INVALID FOR* More... HYPERGLYCEMIA [R79.89] INVALID FOR* More... Neoplasm of uncertain behavior of skin [D48.5] INVALID FOR*03/31/2015 Insomnia, unspecified [G47.00] INVALID FOR*03/10/2010 Actinic Keratosis (Premalignant AK) [L57.0] INVALID FOR*03/31/2015 Seborrheic Keratosis [L82.1] INVALID FOR*03/31/2015 Actinic Damage///Sun-Damaged Skin [L57.8] INVALID FOR*03/31/2015 Solar Lentigo [L81.4] INVALID FOR*Prescriptions ordered this encounter Disp Refills Start End LISINOPRIL 10 MG-HYDROCHLOROTHIAZIDE* 90 t* 0 05/31/2017 Sig: TAKE 1 TABLET DAILYMedications Discontinued During This Encounter lisinopril-hydrochlorothi azide (PRIN* 90 t* 1 11/29/2016 05/31/2017 Route: ORAL Sig: Take 1 tablet by mouth once daily. Disc: Reason for discontinue is not on file. Status:Closed by XAVIER WETZEL LPN on 05/31/17 [facility] 05-07-2017 CNOV Office Visit (UCWSTR) [facility][id number]) 1935 [facility] [id number]/9/17 10:45 AM EJ [facility] During your visit today, we recorded the following information about you: Temperature Pulse Respiration Blood pressure 97.8 degrees 72/minute 16/minute 156/80 Weight 69.8 kgEj Robertson MD 05/07/2017 12:02 PM SignedPatient presents with:nasel drainage and congestion: x 3 weeks-tired of symptoms-phlem chokes her andunable to sleepHPI:Feeling sick since Thanksgiving which mostly cleared up. 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- Personal history of colonic polyps Colon polyps- Shingles outbreak 2006- Unspecified essential hypertension 02/26/2005MEDICATIONS:Curr ent Outpatient Prescriptions:lisinopril- hydrochlorothiazide (PRINZIDE,ZESTORETIC) 10-12.5 mg per tablet Take1 tablet by mouth once daily.amLODIPine (NORVASC) 2.5 mg tablet Take 1 tablet by mouth once daily.Calcium-Vitamin D3-Vitamin K (VIACTIV) 500-500-40 mg-unit-mcg Chew Take 1tablet by mouth once daily.Cholecalciferol, Vitamin D3, 1,000 unit ORAL Cap take 2 tablets dailyomega-3 fatty acids/vitamin e(FISH OIL 1,000 MG CAP) Take one(1) tablet daily.fluticasone (FLONASE) 50 mcg/actuation nasal spray Use 1 Meta in each nostrilonce daily. Rinse mouth after use.CALCIUM CARBONATE (TUMS 500 ORAL) Take by mouth.aspirin, enteric coated (ASPIRIN, ENTERIC COATED) 81 mg EC tablet Take 81 mg bymouth once daily.No current facility-administered medications for this visit.ALLERGIES:ALLERGIES Allergen Reactions- Benadryl [Diphenhyd* Intolerance insomnia, hyper- Ciprofloxacin GI Upset constipation- Trimox [Amoxicillin] SwellingVITALS:BP 156/80 Pulse 72 Temp 36.6 ?C (97.8 ?F) (Tympanic) Resp 16 Wt 69.8 kg(153 lb 12.8 oz) BMI 23.39 kg/[id number] EXAM: GEN: mildly ill appearing HEENT: PERRL, EOMI, conjunctiva clear Ears: canals clear, TMs without erythema, bulge, or effusion Sinuses: non-tender frontal sinus, non-tender maxillary sinuses Throat: moist mucous membranes, mild erythema, no exudate Neck: supple, no thyromegaly, no lymphadenopathy HEART: regular rate and rhythm, no murmurs LUNGS: clear to auscultation, no wheezes or crackles, no increased WOBASSESSMENT/PLAN:1. Acute non-recurrent sinusitis, unspecified location - ICD9: 461.9, ICD10:J01.90- DOXYCYCLINE MONOHYDRATE 100 MG CAPSULEContinue supportive gargles, declines saline rinse.Ej Robertson, MDReferring Provider: SELF [[id number]]Allergies As of Date: 05/07/2017 Noted Allergy ReactionBENADRYL (DIPHENHYDRAMINE HCL) 02/26/2005 5 - Intolerance Comments: insomnia, hyperCIPROFLOXACIN 07/04/2013 8 - GI Upset Comments: constipationTRIMOX (AMOXICILLIN) 02/26/2005 7 - SwellingDate Reviewed: 05/07/2017Reviewed by: Cait Urena LPN - Fully AssessedReason for Visit: nasel drainage and congestion [Other] Cmt: x 3 weeks-tired of symptoms-phlem chokes her and unable to sleepPrimary Visit Diagnosis:Acute non-recurrent sinusitis, unspecified location [J01.90]Order(s):doxycycl ine monohydrate (MONODOX) 100 mg capsuleTake 1 capsule by mouth twice daily for 7 days.Disp: 14 capsuleRfl: 0Prescriptions as of 05/07/2017 Sig: LISINOPRIL 10 MG-HYDROCHLOROT* Take 1 tablet by mouth once d* AMLODIPINE 2.5 MG TABLET Take 1 tablet by mouth once d* CALCIUM-VITAMIN D3-VITAMIN K * Take 1 tablet by mouth once d* * CHOLECALCIFEROL (VITAMIN D3) * take 2 tablets daily * FISH OIL 1,000 MG CAPSULE Take one(1) tablet daily. DOXYCYCLINE MONOHYDRATE 100 M* Take 1 capsule by mouth twice* FLUTICASONE 50 MCG/ACTUATION * Use 1 Meta in each nostril o* TUMS 500 ORAL Take by mouth. ASPIRIN 81 MG TABLET,DELAYED * Take 81 mg by mouth once martín*Medication notes this encounter FLUTICASONE 50 MCG/ACTUATION NASAL SPRAY,SUSPENSION >> Cait Urena LPN 05/07/2017 11:33 AM >> CAIT URENA LPN Sat May 07, 2017 11:33 AM Not UsingProblem List As Of Date 05/07/2017 Noted Resolved Persistent disorder of initiating or maintainin*INVALID FOR*03/10/2010 Essential hypertension [I10] INVALID FOR* More... PRURITUS [L29.9] INVALID FOR*03/10/2010 OSTEOPENIA [M89.9, M94.9] INVALID FOR* More... HYPERGLYCEMIA [R79.89] INVALID FOR* More... Neoplasm of uncertain behavior of skin [D48.5] INVALID FOR*03/31/2015 Insomnia, unspecified [G47.00] INVALID FOR*03/10/2010 Actinic Keratosis (Premalignant AK) [L57.0] INVALID FOR*03/31/2015 Seborrheic Keratosis [L82.1] INVALID FOR*03/31/2015 Actinic Damage///Sun-Damaged Skin [L57.8] INVALID FOR*03/31/2015 Solar Lentigo [L81.4] INVALID FOR*Prescriptions ordered this encounter Disp Refills Start End DOXYCYCLINE MONOHYDRATE 100 MG CAPSU* 14 c* 0 05/07/2017 05/14/2017 Route: ORAL Sig: Take 1 capsule by mouth twice daily for 7 days. Status:Closed by EJ ROBERTSON MD on 05/07/17 [facility] PROGRESSon 05-07-2017 PROGRESS HNO ID: [id number] thor: Ej Pollockervice: (none)Author Type: PhysicianType: Progress NotesFiled: 05/07/2017 12:02 PMNote Text:Patient presents with:nasel drainage and congestion: x 3 weeks-tired of symptoms-phlem chokesher and unable to sleepHPI:Feeling sick since Thanksgiving which mostly cleared up. Having 4-5 daysof thick mucus in her throat.Positive symptoms: Sorethroat, Post nasal drainage, afternoon frontalHeadache, throat clearing, fatigue and malaiseNegative symptoms: Cough, Earache, Fever, Chills, Body Aches,OTC: steam, garglesPAST MEDICAL HISTORYDiagnosis Date- Acute cholecystitis Cholecystitis- Hernia of unspecified site of abdominal cavity without mention ofobstruction or gangrene- Persistent disorder of initiating or maintaining sleep 02/26/2005- Personal history of colonic polyps Colon polyps- Shingles outbreak 2006- Unspecified essential hypertension 02/26/2005MEDICATIONS:Curr ent Outpatient Prescriptions:lisinopril- hydrochlorothiazide (PRINZIDE,ZESTORETIC) 10-12.5 mg per tabletTake 1 tablet by mouth once daily.amLODIPine (NORVASC) 2.5 mg tablet Take 1 tablet by mouth once daily.Calcium-Vitamin D3-Vitamin K (VIACTIV) 500-500-40 mg-unit-mcg Chew Take 1tablet by mouth once daily.Cholecalciferol, Vitamin D3, 1,000 unit ORAL Cap take 2 tablets dailyomega-3 fatty acids/vitamin e(FISH OIL 1,000 MG CAP) Take one(1) tabletdaily.fluticasone (FLONASE) 50 mcg/actuation nasal spray Use 1 Meta in eachnostril once daily. Rinse mouth after use.CALCIUM CARBONATE (TUMS 500 ORAL) Take by mouth.aspirin, enteric coated (ASPIRIN, ENTERIC COATED) 81 mg EC tablet Take 81mg by mouth once daily.No current facility-administered medications for this visit.ALLERGIES:ALLERGIES Allergen Reactions- Benadryl [Diphenhyd* Intolerance insomnia, hyper- Ciprofloxacin GI Upset constipation- Trimox [Amoxicillin] SwellingVITALS:BP 156/80 Pulse 72 Temp 36.6 ?C (97.8 ?F) (Tympanic) Resp 16 Wt69.8 kg (153 lb 12.8 oz) BMI 23.39 kg/[id number] EXAM: GEN: mildly ill appearing HEENT: PERRL, EOMI, conjunctiva clear Ears: canals clear, TMs without erythema, bulge, or effusion Sinuses: non-tender frontal sinus, non-tender maxillary sinuses Throat: moist mucous membranes, mild erythema, no exudate Neck: supple, no thyromegaly, no lymphadenopathy HEART: regular rate and rhythm, no murmurs LUNGS: clear to auscultation, no wheezes or crackles, no increased WOBASSESSMENT/PLAN:1. Acute non-recurrent sinusitis, unspecified location - ICD9: 461.9,ICD10: J01.90- DOXYCYCLINE MONOHYDRATE 100 MG CAPSULEContinue supportive gargles, declines saline rinse.Ej Robertson MD [facility] OBSOLETEon 11-28-2016 OBSOLETE Refill (FAMPWS) MAGGIE BANDA RA ([id number]) 1935 [facility] Time Provider Department11/28/16 CHULA CASTILLO FAMPWS During your visit today, we recorded the following information about you:Danica Mancuso PharmD 11/29/2016 2:30 PM SignedPharmacist Refill Authorization ReviewName: Ananth BandaMRN: [id number]: 11/29/2016Time: 2:21 PMRefill authorization request(s) received via pharmacy request and reviewedunder effective consult agreement. Upon review, did confirm that an activepatient-provider relationship exists and that the prescriber is a participatingphysician under the consult agreement.The medication(s) fall under the following categories:Category 1: 1 corresponding medication(s) qualifies for renewal due to up todate labs and provider visits. Isolated systolic hypertension. Diastolicremains low.Additional actions taken: Prescription(s) issued.Lenore Robertsharjoselito Managed Authorization CenterPhone Current Outpatient Prescriptions:amLODIPine (NORVASC) 2.5 mg tablet Take 1 tablet by mouth once daily.lisinopril-hydrochl orothiazide (PRINZIDE,ZESTORETIC) 10-12.5 mg per tablet TAKE1 TABLET DAILYfluticasone (FLONASE) 50 mcg/actuation nasal spray Use 1 Meta in each nostrilonce daily. Rinse mouth after use.CALCIUM CARBONATE (TUMS 500 ORAL) Take by mouth.aspirin, enteric coated (ASPIRIN, ENTERIC COATED) 81 mg EC tablet Take 81 mg bymouth once daily.Calcium-Vitamin D3-Vitamin K (VIACTIV) 500-500-40 mg-unit-mcg Chew Take 1tablet by mouth once daily.Cholecalciferol, Vitamin D3, 1,000 unit ORAL Cap take 2 tablets dailyomega-3 fatty acids/vitamin e(FISH OIL 1,000 MG CAP) Take one(1) tablet daily.No current facility-administered medications for this visit.Allergies As of Date: 11/28/2016 Noted Allergy ReactionBENADRYL (DIPHENHYDRAMINE HCL) 02/26/2005 5 - Intolerance Comments: insomnia, hyperCIPROFLOXACIN 07/04/2013 8 - GI Upset Comments: constipationTRIMOX (AMOXICILLIN) 02/26/2005 7 - SwellingDate Reviewed: 08/31/2016Reviewed by: Yumiko Andrade Ma - Fully AssessedReason for Visit: Refill Request [94]Order(s):lisinopril-h ydrochlorothiazide (PRINZIDE,ZESTORETIC) 10-12.5 mg per tabletTake 1 tablet by mouth once daily.Disp: 90 tabletRfl: 1Prescriptions as of 11/28/2016 Sig: LISINOPRIL 10 MG-HYDROCHLOROT* Take 1 tablet by mouth once d* AMLODIPINE 2.5 MG TABLET Take 1 tablet by mouth once d* FLUTICASONE 50 MCG/ACTUATION * Use 1 Meta in each nostril o* TUMS 500 ORAL Take by mouth. ASPIRIN 81 MG TABLET,DELAYED * Take 81 mg by mouth once martín* CALCIUM-VITAMIN D3-VITAMIN K * Take 1 tablet by mouth once d* * CHOLECALCIFEROL (VITAMIN D3) * take 2 tablets daily * FISH OIL 1,000 MG CAPSULE Take one(1) tablet daily.Problem List As Of Date 11/28/2016 Noted Resolved Persistent disorder of initiating or maintainin*INVALID FOR*03/10/2010 Essential hypertension [I10] INVALID FOR* More... PRURITUS [L29.9] INVALID FOR*03/10/2010 OSTEOPENIA [M89.9, M94.9] INVALID FOR* More... HYPERGLYCEMIA [R79.89] INVALID FOR* More... Neoplasm of uncertain behavior of skin [D48.5] INVALID FOR*03/31/2015 Insomnia, unspecified [G47.00] INVALID FOR*03/10/2010 Actinic Keratosis (Premalignant AK) [L57.0] INVALID FOR*03/31/2015 Seborrheic Keratosis [L82.1] INVALID FOR*03/31/2015 Actinic Damage///Sun-Damaged Skin [L57.8] INVALID FOR*03/31/2015 Solar Lentigo [L81.4] INVALID FOR*Prescriptions ordered this encounter Disp Refills Start End LISINOPRIL 10 MG-HYDROCHLOROTHIAZIDE* 90 t* 1 11/29/2016 Route: ORAL Sig: Take 1 tablet by mouth once daily.Medications Discontinued During This Encounter lisinopril-hydrochlorothi azide (PRIN* 90 t* 1 06/01/2016 11/29/2016 Sig: TAKE 1 TABLET DAILY Disc: Reason for discontinue is not on file. Status:Closed by SUMIT (PHARMACIST)DANICA on 11/29/16 Normal [facility] Vital Signs Date Time Vital Sign Value Performing Clinician Chante balderas 11-26-2024 09:14-0400 Body height 172.[address] Blue Lambert MD Work Phone: [facility] 11-26-2024 09:14-0400 Body mass index (BMI) [Ratio] 26.3 kg/m2 Dr. Blue Lambert MD Work Phone: [facility] 11-26-2024 09:14-0400 Body weight 78.[address] Blue Lambert MD Work Phone: [facility] 11-26-2024 09:14-0400 Diastolic blood pressure 81 mm[Hg] Dr. Blue Lambert MD Work Phone: [facility] 11-26-2024 09:14-0400 Heart rate 80 /min Dr. Blue Lambert MD Work Phone: [facility] 11-26-2024 09:14-0400 Respiratory rate 17 /min Dr. Blue Lambert MD Work Phone: [facility] 11-26-2024 09:14-0400 SaO2% (BldA) [Mass fraction] 94 % Dr. Blue Lambert MD Work Phone: [facility] 11-26-2024 09:14-0400 Systolic blood pressure 155 mm[Hg] Dr. Blue Lambert MD Work Phone: [facility] 11-13-2024 07:08-0400 Body mass index (BMI) [Ratio] 25.5 kg/m2 Dr. Blue Lambert MD Work Phone: 0(444)246-363310 [place] [address] 11-13-2024 07:08-0400 Body weight 76.[address] Blue Lambert MD Work Phone: 6(217)796-382942 [address] 11-13-2024 07:08-0400 Diastolic blood pressure 78 mm[Hg] Dr. Blue Lambert MD Work Phone: 4(338)129-617710 [place] [address] 11-13-2024 07:08-0400 Heart rate 77 /min Dr. Blue Lambert MD Work Phone: 9(917)494-278142 [address] 11-13-2024 07:08-0400 Respiratory rate 18 /min Dr. Blue Lambert MD Work Phone: 9(362)908-326142 [address] 11-13-2024 07:08-0400 SaO2% (BldA) [Mass fraction] 97 % Dr. Blue Lambert MD Work Phone: 5(029)648-058610 [place] [address] 11-13-2024 07:08-0400 Systolic blood pressure 144 mm[Hg] Dr. Blue Lambert MD Work Phone: 6(762)050-567210 [place] [address] 09-24-2024 07:33-0400 Body mass index (BMI) [Ratio] 27.2 kg/m2 Dr. Blue Lambert MD Work Phone: 6(299)703-051210 [place] [address] 09-24-2024 07:33-0400 Body weight 81.[address] Blue Lambert MD Work Phone: 5(552)320-027610 [place] [address] 09-24-2024 07:33-0400 Diastolic blood pressure 82 mm[Hg] Dr. Blue Lambert MD Work Phone: [facility] 09-24-2024 07:33-0400 Heart rate 86 /min Dr. Blue Lambert MD Work Phone: [facility] 09-24-2024 07:33-0400 Respiratory rate 18 /min Dr. Blue Lambert MD Work Phone: [facility] 09-24-2024 07:33-0400 SaO2% (BldA) [Mass fraction] 97 % Dr. Blue Lambert MD Work Phone: 5(421)514-829610 [place] [address] 09-24-2024 07:33-0400 Systolic blood pressure 121 mm[Hg] Dr. Blue Lambert MD Work Phone: 0(240)452-918710 [place] [address] 08-14-2024 14:46-0400 Diastolic blood pressure 64 mm[Hg] Dr. Blue Lambert MD Work Phone: 3(539)968-355421 [place] [address] 08-14-2024 14:46-0400 Systolic blood pressure 132 mm[Hg] Dr. Blue Lambert MD Work Phone: 4(800)908-117610 [place] [address] 08-14-2024 13:25-0400 Body height 172.[address] Blue Lambert MD Work Phone: 6(608)940-980021 [place] [address] 08-14-2024 13:25-0400 Body mass index (BMI) [Ratio] 27.3 kg/m2 Dr. Blue Lambert MD Work Phone: 3(241)467-945321 [place] [address] 08-14-2024 13:25-0400 Body weight 81.[address] Blue Lambert MD Work Phone: 0(434)476-834510 [place] [address] 08-14-2024 13:25-0400 Heart rate 98 /min Dr. Blue Lambert MD Work Phone: 6(628)239-431110 [place] [address] 08-14-2024 13:25-0400 Respiratory rate 18 /min Dr. Blue Lambert MD Work Phone: 7(741)381-620510 [place] [address] 08-14-2024 13:25-0400 SaO2% (BldA) [Mass fraction] 95 % Dr. Blue Lambert MD Work Phone: 9(538)381-618010 [place] [address] 07-13-2023 13:25-0500 Body height 172.[address] Blue Lambert Work Phone: [facility] 07-13-2023 13:25-0500 Body mass index (BMI) [Ratio] 27 kg/m2 Dr. Blue Lambert Work Phone: [facility] 07-13-2023 13:25-0500 Body weight 80.[address] Blue Lambert Work Phone: [facility] 07-13-2023 13:25-0500 Diastolic blood pressure 82 mm[Hg] Dr. Blue Lambert Work Phone: [facility] 07-13-2023 13:25-0500 Heart rate 82 /min Dr. Blue Lambert Work Phone: [facility] 07-13-2023 13:25-0500 Respiratory rate 18 /min Dr. Blue Lambert Work Phone: [facility] 07-13-2023 13:25-0500 SaO2% (BldA) [Mass fraction] 97 % Dr. Blue Lambert Work Phone: [facility] 07-13-2023 13:25-0500 Systolic blood pressure 159 mm[Hg] Dr. Blue Lambert Work Phone: [facility] 01-10-2023 13:58-0400 Body height 172.[address] Blue Lambert Work Phone: [facility] 01-10-2023 13:58-0400 Body mass index (BMI) [Ratio] 27.2 kg/m2 Dr. Blue Lambert Work Phone: [facility] 01-10-2023 13:58-0400 Body weight 81.[address] Blue Lambert Work Phone: [facility] 01-10-2023 13:58-0400 Diastolic blood pressure 75 mm[Hg] Dr. Blue Lambert Work Phone: [facility] 01-10-2023 13:58-0400 Heart rate 85 /min Dr. Blue Lambert Work Phone: [facility] 01-10-2023 13:58-0400 Respiratory rate 18 /min Dr. Blue Lambert Work Phone: [facility] 01-10-2023 13:58-0400 SaO2% (BldA) [Mass fraction] 97 % Dr. Blue Lambert Work Phone: [facility] 01-10-2023 13:58-0400 Systolic blood pressure 172 mm[Hg] Dr. Blue Lambert Work Phone: [facility] 01-01-2022 10:03-0400 Body height 172.[address] Blue Lambert Work Phone: [facility] Work Phone: 01-01-2022 10:03-0400 Body mass index (BMI) [Ratio] 26 kg/m2 Dr. Blue Lambert Work Phone: [facility] Work Phone: 01-01-2022 10:03-0400 Body weight 77.[address] Blue Lambert Work Phone: [facility] Work Phone: 01-01-2022 10:03-0400 Diastolic blood pressure 68 mm[Hg] Dr. Blue Lambert Work Phone: [facility] Work Phone: 01-01-2022 10:03-0400 Heart rate 72 /min Dr. Blue Lambert Work Phone: [facility] Work Phone: 01-01-2022 10:03-0400 Respiratory rate 16 /min Dr. Blue Lambert Work Phone: [facility] Work Phone: 01-01-2022 10:03-0400 Systolic blood pressure 162 mm[Hg] Dr. Blue Lambert Work Phone: [facility] Work Phone: 11-02-2021 13:39-0400 Body temperature 97.4 [degF] Dr. Blue Lambert Work Phone: [facility] Work Phone: 11-02-2021 13:39-0400 Diastolic blood pressure 84 mm[Hg] Dr. Blue Lambert Work Phone: [facility] Work Phone: 11-02-2021 13:39-0400 Heart rate 86 /min Dr. Blue Lambert Work Phone: [facility] Work Phone: 11-02-2021 13:39-0400 Respiratory rate 16 /min Dr. Blue Lambert Work Phone: [facility] Work Phone: 11-02-2021 13:39-0400 SaO2% (BldA) [Mass fraction] 97 % Dr. Blue Lambert Work Phone: [facility] Work Phone: 11-02-2021 13:39-0400 Systolic blood pressure 160 mm[Hg] Dr. Blue Lambert Work Phone: [facility] Work Phone: 08-11-2021 11:28-0400 Body temperature 98.7 [degF] Dr. Blue Lambert Work Phone: [facility] Work Phone: 08-11-2021 11:28-0400 Diastolic blood pressure 82 mm[Hg] Dr. Blue Lambert Work Phone: [facility] Work Phone: 08-11-2021 11:28-0400 Heart rate 103 /min Dr. Blue Lambert Work Phone: [facility] Work Phone: 08-11-2021 11:28-0400 Respiratory rate 14 /min Dr. Blue Lambert Work Phone: [facility] Work Phone: 08-11-2021 11:28-0400 SaO2% (BldA) [Mass fraction] 96 % Dr. Blue Lambert Work Phone: [facility] Work Phone: 08-11-2021 11:28-0400 Systolic blood pressure 150 mm[Hg] Dr. Blue Lambert Work Phone: [facility] Work Phone: 08-04-2021 12:53-0500 Body height 172.[address] Blue Lambert Work Phone: [facility] Work Phone: Encounters Encounter Date Encounter Type Care Provider Facility Start: 11-28-[address] Blue Lambert MD -[facility] Work Phone: Start: 11-26-2024 End: 11-26-[address] Rainer Weston MD -Laboratory [facility] Work Phone: Start: 11-26-2024 End: 11-26-2024 ambulatory Blue Lambert Facility:[facility] Start: 11-26-2024 End: 11-26-[address] Rainer Weston MD -[facility] Work Phone: Start: 11-26-2024 End: 11-26-[address] Blue Lambert MD Work Phone: -[facility] Start: 11-13-2024 End: 11-13-[address] Blue Lambert MD Work Phone: [facility] Work Phone: Start: 11-13-2024 End: 11-13-2024 Patient encounter procedure Asim VASQUEZ -[facility] Work Phone: Start: 11-13-2024 End: 11-13-2024 Patient encounter procedure Asim VASQUEZ -[facility] Work Phone: Start: 11-13-2024 End: 11-13-[address] Blue Lambert MD Work Phone: [facility] Work Phone: Start: 11-13-2024 End: 11-13-2024 ambulatory Blue Lambert Facility:[facility] Start: 10-29-2024 End: 10-29-[address] Blue Lambert MD Work Phone: [facility] Work Phone: Start: 10-29-2024 End: 10-29-[address] Rainer Weston MD -Ultrasound [facility] Work Phone: Start: 10-29-2024 End: 10-29-2024 ambulatory Rainer Weston Facility:[facility] Start: 09-25-2024 End: 09-25-2024 Patient encounter procedure Asim VASQUEZ -[facility] Work Phone: Start: 09-25-2024 End: 09-25-2024 ambulatory Asim Ireland Facility:[facility] Start: 09-12-2024 End: 09-12-[address] Blue Lambert MD Work Phone: [facility] Work Phone: Start: 09-12-2024 End: 09-12-[address] Blue Lambert MD -Laboratory, [facility] Start: 09-12-2024 End: 09-12-2024 ambulatory Blue Lambert Facility:[facility] Start: 08-14-2024 End: 08-14-[address] Blue Lambert MD Work Phone: [facility] Work Phone: Start: 08-14-2024 End: 08-14-2024 Patient encounter procedure Asim VASQUEZ -Laboratory Work Phone: Start: 08-14-2024 End: 08-14-2024 Patient encounter procedure Asim Ireland PA -[facility] Work Phone: Start: 08-14-2024 End: 08-14-2024 ambulatory Asim Ireland Facility:[facility] Start: 08-14-2024 End: 08-14-2024 ambulatory Asim Ireland Facility:[facility] Start: 06-22-2024 End: 06-22-2024 Patient encounter procedure Dane Werner DO -[facility] Work Phone: Start: 06-22-2024 End: 06-22-2024 ambulatory Dane Werner Facility:[facility] Start: 05-11-2024 End: 05-11-[address] [facility] Start: 05-11-2024 End: 05-11-2024 ambulatory Blue Lambert Facility:[facility] Start: 03-30-2024 End: 03-30-2024 ambulatory Blue Lambert Facility:[facility] Start: 03-14-2024 End: 03-14-2024 ambulatory Dane Werner Facility:[facility] Start: 03-14-2024 End: 03-14-2024 ambulatory Blue Lambert Facility:[facility] Start: 03-06-2024 End: 03-06-2024 ambulatory Blue Lambert Facility:[facility] Start: 03-05-2024 End: 03-05-2024 ambulatory Magalie Isidro Facility:[facility] Start: 03-01-2024 End: 03-01-2024 ambulatory Jb Ryan Facility:[facility] Start: 02-28-2024 End: 03-03-2024 Evaluation and management of inpatient Nelsy Garcia Facility:[facility] Start: 02-28-2024 ambulatory Charlie Andrade Facility:[facility] Start: 02-27-2024 End: 02-27-2024 ambulatory Blue Lambert Facility:[facility] Start: 12-23-2023 End: 12-23-2023 ambulatory Blue Shukla Facility:[facility] Start: 08-17-2023 End: 08-17-[address] Blue Lambert Work Phone: [facility] Work Phone: Start: 08-17-2023 End: 08-17-[address] Blue Lambert Work Phone: [facility]-Outpatient Bone [facility] Work Phone: Start: 07-20-2023 End: 07-20-[address] Blue Lambert Work Phone: [facility]-Laboratory Work Phone: Start: 07-19-2023 Non-patient / Non-visit Dr. Blue Lambert Work Phone: [facility] Start: 07-19-2023 End: 07-19-[address] Blue Lambert Work Phone: [facility]-Cardiovascular Services Work Phone: Start: 07-13-2023 End: 07-13-[address] Blue Lambert Work Phone: [facility] Work Phone: Start: 07-13-2023 End: 07-13-[address] Blue Lambert Work Phone: [facility] Work Phone: Start: 05-05-2023 End: 05-05-2023 ambulatory [facility] Work Phone: Start: 05-05-2023 End: 05-05-2023 Patient encounter procedure [facility] Work Phone: Start: 04-26-2023 End: 04-26-[address] Blue Lambert Work Phone: [facility] Work Phone: Start: 04-26-2023 End: 04-26-[address] Blue Lambert Work Phone: [facility] Work Phone: Start: 04-20-2023 End: 04-20-[address] Blue Lambert Work Phone: [facility] Work Phone: Start: 04-20-2023 End: 04-20-[address] Blue Lambert Work Phone: [facility] Start: 01-19-2023 End: 01-19-[address] Blue Lambert Work Phone: [facility] Work Phone: Start: 01-18-2023 End: 01-18-[address] Blue Lambert Work Phone: [facility] Work Phone: Start: 01-18-2023 End: 01-18-[address] Blue Lambert Work Phone: [facility] Work Phone: Start: 01-10-2023 End: 01-10-[address] Blue Lambert Work Phone: [facility] Work Phone: Start: 01-10-2023 End: 01-10-[address] Blue Lambert Work Phone: [facility] Work Phone: Start: 02-02-[address] Blue Lambert Work Phone: [facility] Start: 01-30-2022 End: 01-30-[address] Blue Lambert Work Phone: [facility] Work Phone: Start: 01-30-2022 End: 01-30-[address] Blue Lambert Work Phone: [facility] Start: 01-28-2022 End: 01-28-[address] Blue Lambert Work Phone: [facility] Work Phone: Start: 01-28-2022 End: 01-28-[address] Blue Lambert Work Phone: [facility] Start: 01-21-[address] Blue Lambert Work Phone: [facility] Start: 01-18-2022 End: 01-18-[address] Blue Lambert Work Phone: [facility] Work Phone: Start: 01-18-2022 End: 01-18-[address] Blue Lambert [facility] Start: 01-11-2022 Non-patient / Non-visit Dr. Blue Lambert Work Phone: [facility] Start: 01-11-2022 End: 01-11-[address] Blue Lambert Work Phone: [facility] Start: 01-01-2022 End: 01-01-[address] Blue Lambert Work Phone: [facility] Start: 12-30-2021 End: 12-30-[address] Blue Lambert Work Phone: [facility] Start: 11-02-2021 End: 11-02-[address] Blue Lambert Work Phone: [facility] Start: 10-28-2021 End: 10-28-[address] Blue Lambert Work Phone: [facility] Start: 08-11-2021 End: 08-11-[address] Blue Lambert Work Phone: [facility] Start: 08-04-2021 End: 08-04-[address] Blue Lambert Work Phone: [facility]Outpatient [facility] Densit[facility] Start: 05-07-2017 End: 05-07-2017 Ambulatory [facility] Procedures Date Procedure Procedure Detail Performing Clinician Start: 10-29-2024 US scan of thyroid Dr. Blue Lambert MD Work Phone: Start: 09-12-2024 Total iron binding c apacity measurement Dr. Blue Lambert MD Work Phone: Start: 09-12-2024 Vitamin D, 25-hydrox y measurement Dr. Blue Lambert MD Work Phone: Comment on above: Vitamin D StatusDefi ciency: <20 ng/mL (50nmol/L)Insufficiency: 20-30 ng/mL (50-75 nmol/L)Sufficiency: 30-100 ng/mL (75-250 nmol/L)Toxicity: >100 ng/mL (>250 nmol/L) Start: 08-14-2024 Evaluation of diagno stic study results Dr. Blue Lambert MD Work Phone: Start: 08-17-2023 Dual energy X-ray absorptiometry Dr. Blue Lambert Work Phone: Start: 05-05-2023 Computed tomography of abdomen and pelvis with contrast Start: 01-30-[address] Blue Lambert Work Phone: Start: 10-28-2021 US scan of thyroid Dr. Blue Lambert Work Phone: Start: 08-04-2021 Dual energy X-ray absorptiometry Dr. Blue Lambert Work Phone: Plan of Treatment Date Care Activity Detail Author Start: 11-28-2024 Vitamin B12 measurement [facility] Start: 11-28-2024 Vitamin D, 25-hydroxy measurement [facility] Alanine aminotransfe rase [Enzymatic activity/volume] in Serum or Plasma [facility] Albumin [Mass/volume ] in Serum or Plasma [facility] Alkaline phosphatase [Enzymatic activity/volume] in Serum or Plasma [facility] Anion gap in Serum or Plasma [facility] Basic metabolic 2008 panel with ionized calcium - Serum or Plasma [facility] spital Bilirubin, total measurement [facility] Bilirubin.direct [Ma ss/volume] in Serum or Plasma [facility] Blood chemistry [facility] Work Phone: BUN/Creatinine ratio [facility] Calcium [Mass/volume ] in Serum or Plasma [facility] Carbon dioxide, tota l [Moles/volume] in Central venous blood [facility] Cholesterol [Mass/vo lume] in Serum or Plasma [facility] Cholesterol in HDL [ Mass/volume] in Serum or Plasma [facility] Creatinine [Mass/vol ume] in Serum or Plasma [facility] Erythrocyte mean cor puscular volume determination [facility] Glucose [Mass/volume ] in Serum or Plasma [facility] Hematocrit [Volume F raction] of Blood [facility] Hemoglobin [Mass/volume] in Blood [facility] Hemoglobin A1c/Hemog lobin.total in Blood [facility] Leukocytes [#/volume] in Blood [facility] Low density lipoprot ein cholesterol measurement [facility] Magnesium [Mass/volu me] in Serum or Plasma [facility] Work Phone: Magnesium measurement [facility] Mean corpuscular hem oglobin concentration determination [facility] Mean corpuscular hem oglobin determination [facility] Measurement of renal function [facility] Neutrophil count [facility] Neutrophil percent d ifferential count [facility] Platelets [#/volume] in Blood [facility] Potassium measurement [facility] Red blood cell count [facility] Red cell distributio n width determination [facility] Serum chloride measurement [facility] Sodium measurement [facility] T4 free measurement [facility] Thyroid stimulating hormone measurement [facility] Total cholesterol:HD L ratio measurement [facility] Total protein measurement [facility] Triglycerides measurement [facility] Urea nitrogen [Mass/ volume] in Serum or Plasma [facility] VLDL cholesterol measurement [facility] Immunizations Immunization Date Immunization Notes Care Provider Fa cility 07-18-2020 Ayden (Adrianna) Dr. Blue ro Work Phone: [facility] 06-20-2020 Ayden (Adrianna) Dr. Blue ro Work Phone: [facility] Payers Date Payer Category Payer Self-pay [id number] 2023 Medicare [id number] 2020 [employer] ( and others) [id number] [employer] ( and others) [id number] [employer] ( and others) [employer] [id number] 2.16.840.1.567117.3.579.2.4 62 Unknown [id number] 2.16.840.1.831376.3.579.2.4 62 Unknown [id number] 2.16.840.1.913100.3.579.2.4 62 Unknown [id number] 2.16.840.1.275012.3.579.2.4 62 Unknown [id number] 2.16.840.1.704036.3.579.2.4 62 Unknown [id number] 2.16.840.1.505489.3.579.2.4 62 Unknown [id number] 2.16.840.1.969935.3.579.2.4 62 Unknown [id number] 2.16.840.1.250601.3.579.2.4 62 Unknown [id number] 2.16.840.1.408443.3.579.2.4 62 Unknown [id number] 2.16.840.1.975250.3.579.2.4 62 Unknown [id number] 2.16.840.1.693326.3.579.2.4 62 Unknown [id number] 2.16.840.1.489577.3.579.2.4 62 Unknown [id number] 2.16.840.1.737727.3.579.2.4 62 Unknown [id number] 2.16.840.1.131524.3.579.2.4 62 Unknown [id number] 2.16.840.1.491753.3.579.2.4 62 Unknown [id number] 2.16.840.1.909120.3.579.2.4 62 Unknown [id number] 2.16.840.1.195264.3.579.2.4 62 Unknown [id number] 2.16.840.1.439350.3.579.2.4 62 Unknown [id number] 2.16.840.1.531941.3.579.2.4 62 Unknown [id number] 2.16.840.1.537559.3.579.2.4 62 Unknown [id number] 2.16.840.1.395370.3.579.2.4 62 Unknown [id number] 2.16.840.1.016487.3.579.2.4 62 Unknown [id number] 2.16.840.1.711180.3.579.2.4 62 Unknown [id number] 2.16.840.1.175008.3.579.2.4 62 Unknown [id number] 2.16.840.1.951506.3.579.2.4 62 Unknown [id number] 2.16.840.1.021120.3.579.2.4 62 Unknown [id number] 2.16.840.1.533967.3.579.2.4 62 Unknown [id number] 2.16.840.1.304594.3.579.2.4 62 Social History Date Type Detail Facility Start: 08-11-2021 End: 07-13-2023 Tobacco smoking status NHIS Unknown if ever smoked [facility] Start: 1935 Sex Assigned At Female [facility] Start: 08-14-2024 Tobacco smoking stat us NHIS Never smoked tobacco (finding) [facility] Start: 08-23-2024 End: 09-17-2024 Sex Female (finding) [facility] Clinical Notes 02-27-2024 to 10-30-2024 Note Date & Type Note Facility 10-30-2024 Radiology Diagnostic study note [facility] Imaging Services [address] [place] [address] Thyroid MR#: [id number] Acct: [id number] Name: ANANTH BANDA TAYLOR Rep #: [id number] 22 : 1935 F 89 From: Julia Payan MD PCP: Dr. Blue Lambert MD Status: RE G CLI Study:Thyroid Date of Exam: 10/29/24 Exam# [id number] Ordering Dr: Arabella Weston MD PROCEDURE: THYROID 10/29/2024 REASON FOR EXAM: THYROID NODULES TECHNIQUE: High-frequency thyroid ultrasound, including grayscale and color-flow images. REFERENCE LINKS: TI-RADS Chart: [email or web address] TI-RADS Calculator Tool with Reference Images: [email or web address]/ COMPARISON: 10/28/2021 FINDINGS: Right thyroid lobe size: 5.2x0.8x0.7 cm Left thyroid lobe size: 4.7x1.3x1.6 cm Isthmus: 0.3 cm Background parenchymal echotexture is heterogeneous. Nodules: Right lobe thyroid complex nodule measuring 1.1 x 0.8 x 0.7 cm is noted. TR3 Right lobe hypoechoic nodule with calcifications measuring 1.6 x 1.4 x 1.5 cm is noted. TR5 Left thyroid lobe spongiform nodule measuring 0.7 x 0.7 x 0.6 cm is noted. TR2 Left thyroid spongiform nodule measuring 0.8 x 0.7 x 0.8 cm is noted. TR2 Left thyroid solid hypoechoic nodule measuring 0.9 x 0.7 x 0.8 cm is noted. TR4 US/Thyroid IMPRESSION: Heterogenous thyroid gland, this could be seen in thyyroiditis. Bilateral thyroid nodules. Advise FNA for right lobe largest nodule. New as compared. Previously noted large complex right lobe nodule is not seen at this time RECOMMENDATION: Based on most suspicious nodule. Nodule size = largest diameter Only evaluate nodule if =>5 mm. Growth > 20% in 2 dimensions = worsening. Follow up to 4 nodules. Recommend biopsy for no more than 2 nodules. Reading Location: [place] [address] CC: Dr. Blue Lambert MD; Dr. Rainer Weston MD ~ Cath Lab: Signed [facility] 08-14-2024 Evaluation note Diagnosis Onset Date Resolution Atrial fibrillation acute August 14, 2024 1:20pm Lower extremity edema acute Mar 2024 1:20pm Shortness of breath acute August 14, 2024 1:20pm Acquired atrial septal defect (ASD) chronic August 14, 2024 1:20pm Essential hypertension chronic [facility] 2024 1:20pm Non-rheumatic tricuspid valve insufficiency chronic August 14, 2024 1:20pm Atrial fibrillation acute September 25, 2024 12:40pm Lower extremity edema acute Apr wy 2024 12:40pm Shortness of breath acute September 25, 2024 12:40pm Acquired atrial septal defect (ASD) chronic September 25, 2024 12:40pm Essential hypertension chronic [facility] 2024 12:40pm Non-rheumatic tricuspid valve insufficiency chronic September 25, 2024 12:40pm [facility] Work Phone: 1(843) 675-982803-18-2025 Evaluation note* Diagnosis Onset Date Resolution Status Admit Date Atrial fibrillation acute August 14, 2024 1:20pm Lower extremity edema acute Mar 2024 1:20pm Shortness of breath acute August 14, 2024 1:20pm Acquired atrial septal defec t (ASD) chronic August 14, 2024 1:20pm Essential hypertension chronic [facility] 2024 1:20pm Non-rheumatic tricuspid valv e insufficiency chronic August 14, 2024 1:20pm Atrial fibrillation acute September 25, 2024 12:40pm Lower extremity edema acute Apr il 2024 12:40pm Shortness of breath acute September 25, 2024 12:40pm Acquired atrial septal defec t (ASD) chronic September 25, 2024 12:40pm Essential hypertension chronic Ap ril 2024 12:40pm Non-rheumatic tricuspid valv e insufficiency chronic September 25, 2024 12:40pm Atrial fibrillation acute November 13, 2024 11:03am Lower extremity edema acute Jose e 2024 11:03am Shortness of breath acute November 13, 2024 11:03am Acquired atrial septal defec t (ASD) chronic November 13, 2024 11:03am Essential hypertension chronic Ju hi 2024 11:03am Non-rheumatic tricuspid valv e insufficiency chronic November 13, 2024 11:03am [facility] Work Phone: 1(305) 675-437003-18-2025 Evaluation note* Diagnosis Onset Date Resolution Status Admit Date Atrial fibrillation acute August 14, 2024 1:20pm Lower extremity edema acute [facility] 2024 1:20pm Shortness of breath acute August 14, 2024 1:20pm Acquired atrial septal defec t (ASD) chronic August 14, 2024 1:20pm Essential hypertension chronic [facility] 2024 1:20pm Non-rheumatic tricuspid valv e insufficiency chronic August 14, 2024 1:20pm Atrial fibrillation acute September 25, 2024 12:40pm Lower extremity edema acute Apr il 2024 12:40pm Shortness of breath acute September 25, 2024 12:40pm Acquired atrial septal defec t (ASD) chronic September 25, 2024 12:40pm Essential hypertension chronic Ap ril 2024 12:40pm Non-rheumatic tricuspid valv e insufficiency chronic September 25, 2024 12:40pm Atrial fibrillation acute November 13, 2024 11:03am Diastolic heart failure acute [facility] 2024 11:03am Acquired atrial septal defec t (ASD) chronic November 13, 2024 11:03am Essential hypertension chronic Ju hi 2024 11:03am Non-rheumatic tricuspid valv e insufficiency chronic November 13, 2024 11:03am [facility] Work Phone: 1(328) 306-778303-18-2025 Evaluation note* Diagnosis Onset Date Resolution Status Admit Date Atrial fibrillation acute August 14, 2024 1:20pm Lower extremity edema acute Mar 2024 1:20pm Shortness of breath acute August 14, 2024 1:20pm Acquired atrial septal defec t (ASD) chronic August 14, 2024 1:20pm Essential hypertension chronic [facility] 2024 1:20pm Non-rheumatic tricuspid valv e insufficiency chronic August 14, 2024 1:20pm Atrial fibrillation acute September 25, 2024 12:40pm Lower extremity edema acute Apr wy 2024 12:40pm Shortness of breath acute September 25, 2024 12:40pm Acquired atrial septal defec t (ASD) chronic September 25, 2024 12:40pm Essential hypertension chronic [facility] 2024 12:40pm Non-rheumatic tricuspid valv e insufficiency chronic September 25, 2024 12:40pm Atrial fibrillation acute November 13, 2024 11:03am Diastolic heart failure acute [facility] 2024 11:03am Acquired atrial septal defec t (ASD) chronic November 13, 2024 11:03am Essential hypertension chronic [facility] 2024 11:03am Non-rheumatic tricuspid valv e insufficiency chronic November 13, 2024 11:03am Multiple thyroid nodules acute November 26, 2024 8:51am [facility] Work Phone: 1(113) 854-808901-24-2025 Evaluation note* Diagnosis Onset Date Resolution Status Admit Date Anemia acute June 22, 2024 10:52am 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, 2024 10:52am Atrial fibrillation acute August 14, 2024 1:20pm Lower extremity edema acute [facility] 2024 1:20pm Shortness of breath acute August 14, 2024 1:20pm Acquired atrial septal defec t (ASD) chronic August 14, 2024 1:20pm Essential hypertension chronic [facility] 2024 1:20pm Non-rheumatic tricuspid valv e insufficiency chronic August 14, 2024 1:20pm [facility] Work Phone: 1(494) 912-991310-05-2024 [facility] Diagnosis Onset Date Resolution Status Acute bronchitis acute Acute sinusitis acute [facility] Work Phone: Evaluation note* Diagnosis Onset Date Resolution Status Multiple thyroid nodules acu te Acquired atrial septal defect (ASD) acute Atrial fibrillation acute Essential hypertension acute Non-rheumatic mitral regurgitation acute Non-rheumatic tricuspid valve insufficiency acute [facility] Work Phone: Evaluation note* Diagnosis Onset Date Resolution Status Acquired atrial septal defect (ASD) acute Atrial fibrillation acute Bilateral lower extremity edema acute Essential hypertension acute Fatigue acute Non-rheumatic mitral regurgitation acute Non-rheumatic tricuspid valve insufficiency acute [facility] Work Phone: Evaluation noteNo assessment information available [facility] Work Phone: Evaluation note* Diagnosis Onset Date Resolution Status Acquired atrial septal defect (ASD) acute Atrial fibrillation acute Bilateral lower extremity edema acute Essential hypertension acute Non-rheumatic mitral regurgitation acute Non-rheumatic tricuspid valve insufficiency acute [facility] Work Phone: Reason for referral (narrative)No reason for referral information availableP[facility] Work Phone: Summary Purpose Family History Relationship Condition Age at Onset Recorded Date/T jus mother Diabetes mellitus Unknown father Myocardial infarction Unknown Coronary artery disease Unknown Advance Directives Advance Directive Response Recorded Date/ Time Advance Directives Yes December 09 11:42am Living Will Yes December 09, 2020 11:42am Power of Power Plant Mechanic Yes December 09 11:42am Advance Directive Response Recorded Date/ Time Advance Directives Yes December 09 10:42am Living Will Yes December 09, 2020 10:42am Power of Power Plant Mechanic Yes December 09 10:42am Advance Directive Response Recorded Date/ Time Living Will Yes February 27 12:47am Do you have a Healthcare Power of Power Plant Mechanic? Yes February 28, 2024 12:47am Advance Directives Yes December 09 11:42am Chief Complaint and Reason for Visit Chief Complaint OSTEO HANEY/POST NASAL DRIP/ NOT FEELING WELL THYROID NODULE Reason for Visit Acute bronchitis Acute sinusitis Chief Complaint THYROID NODULE Thyroid F/U Ultrasound 10/28 [facility] 9 M FU Reason for Visit Multiple thyroid nod ules Acquired atrial septal defect (ASD) Atrial fibrillation Essential hypertension Non-rheumatic mitral regurgitation Non-rheumatic tricuspid valve insufficiency Chief Complaint THYROID NODULE Thyroid F/U Ultrasound 10/28 [facility] 9 M FU RLE CALF PAIN LEG WEAKNESS/PT HAS RX Reason for Visit Multiple thyroid nod ules Acquired atrial septal defect (ASD) Atrial fibrillation Essential hypertension Non-rheumatic mitral regurgitation Non-rheumatic tricuspid valve insufficiency Chief Complaint THYROID NODULE Thyroid F/U Ultrasound 10/28 [facility] 9 M FU RLE CALF PAIN RIGHT LOWER EXT EDEMA LEG WEAKNESS/PT HAS RX Reason for Visit Multiple thyroid nod ules Acquired atrial septal defect (ASD) Atrial fibrillation Essential hypertension Non-rheumatic mitral regurgitation Non-rheumatic tricuspid valve insufficiency Chief Complaint 6 M FU E-ORDER Reason for Visit Acquired atrial sept al defect (ASD) Atrial fibrillation Bilateral lower extremity edema Essential hypertension Fatigue Non-rheumatic mitral regurgitation Non-rheumatic tricuspid valve insufficiency Chief Complaint 6 M FU E-ORDER E ORDERS EORDER Reason for Visit Acquired atrial sept al defect (ASD) Atrial fibrillation Bilateral lower extremity edema Essential hypertension Fatigue Non-rheumatic mitral regurgitation Non-rheumatic tricuspid valve insufficiency Chief Complaint 6 M FU E-ORDER E ORDERS EORDER EORDER Reason for Visit Acquired atrial sept al defect (ASD) Atrial fibrillation Bilateral lower extremity edema Essential hypertension Fatigue Non-rheumatic mitral regurgitation Non-rheumatic tricuspid valve insufficiency Chief Complaint E ORDERS EORDER EORDER Unspecified jaundice Chief Complaint EORDER Unspecified jaundice 6 M FU Reason for Visit Acquired atrial sept al defect (ASD) Atrial fibrillation Bilateral lower extremity edema Essential hypertension Non-rheumatic mitral regurgitation Non-rheumatic tricuspid valve insufficiency Chief Complaint 6 M FU SOB E-ORDER OSTEO Reason for Visit Acquired atrial sept al defect (ASD) Atrial fibrillation Bilateral lower extremity edema Essential hypertension Non-rheumatic mitral regurgitation Non-rheumatic tricuspid valve insufficiency Chief Complaint Admit Date 3 M FU June 22, 2024 1 0:52am 3 M FU August 14, 2024 1:2 0pm Reason for Visit Admit Date Anemia June 22, 2024 1 0:52am Gilbert syndrome June 22, 2024 1 0:52am Atrial fibrillation August 14, 2024 1:2 0pm Lower extremity edema August 14, 2024 1 :20pm Shortness of breath August 14, 2024 1:2 0pm Acquired atrial septal defect (ASD) Dorian calero 2024 1:20pm Essential hypertension August 14, 2024 1:20pm Non-rheumatic tricuspid valve insufficie ncy August 14, 2024 1:20pm Chief Complaint Admit Date 3 M FU August 14, 2024 1:2 0pm 6 WK FU September 25, 2024 12: 40pm NODULE October 29, 2024 11:37 am Reason for Visit Admit Date Atrial fibrillation August 14, 2024 1:2 0pm Lower extremity edema August 14, 2024 1 :20pm Shortness of breath August 14, 2024 1:2 0pm Acquired atrial septal defect (ASD) Dorian calero 2024 1:20pm Essential hypertension August 14, 2024 1:20pm Non-rheumatic tricuspid valve insufficie ncy August 14, 2024 1:20pm Atrial fibrillation September 25, 2024 12: 40pm Lower extremity edema September 25, 2024 1 2:40pm Shortness of breath September 25, 2024 12: 40pm Acquired atrial septal defect (ASD) Apri l 2024 12:40pm Essential hypertension September 25, 2024 12:40pm Non-rheumatic tricuspid valve insufficie ncy September 25, 2024 12:40pm Chief Complaint Admit Date 3 M FU August 14, 2024 1:2 0pm 6 WK FU September 25, 2024 12: 40pm NODULE October 29, 2024 11:37 am 8 WK FU November 13, 2024 11:0 3am Reason for Visit Admit Date Atrial fibrillation August 14, 2024 1:2 0pm Lower extremity edema August 14, 2024 1 :20pm Shortness of breath August 14, 2024 1:2 0pm Acquired atrial septal defect (ASD) Dorian calero 2024 1:20pm Essential hypertension August 14, 2024 1:20pm Non-rheumatic tricuspid valve insufficie ncy August 14, 2024 1:20pm Atrial fibrillation September 25, 2024 12: 40pm Lower extremity edema September 25, 2024 1 2:40pm Shortness of breath September 25, 2024 12: 40pm Acquired atrial septal defect (ASD) Apri l 2024 12:40pm Essential hypertension September 25, 2024 12:40pm Non-rheumatic tricuspid valve insufficie ncy September 25, 2024 12:40pm Atrial fibrillation November 13, 2024 11:0 3am Lower extremity edema November 13, 2024 11 :03am Shortness of breath November 13, 2024 11:0 3am Acquired atrial septal defect (ASD) November 13, 2024 11:03am Essential hypertension November 13, 2024 1 1:03am Non-rheumatic tricuspid valve insufficie ncy November 13, 2024 11:03am Chief Complaint Admit Date 3 M FU August 14, 2024 1:2 0pm 6 WK FU September 25, 2024 12: 40pm NODULE October 29, 2024 11:37 am 8 WK FU November 13, 2024 11:0 3am EORDER November 13, 2024 1:29 pm Reason for Visit Admit Date Atrial fibrillation August 14, 2024 1:2 0pm Lower extremity edema August 14, 2024 1 :20pm Shortness of breath August 14, 2024 1:2 0pm Acquired atrial septal defect (ASD) Dorian 2024 1:20pm Essential hypertension August 14, 2024 1:20pm Non-rheumatic tricuspid valve insufficie ncy August 14, 2024 1:20pm Atrial fibrillation September 25, 2024 12: 40pm Lower extremity edema September 25, 2024 1 2:40pm Shortness of breath September 25, 2024 12: 40pm Acquired atrial septal defect (ASD) Apri l 2024 12:40pm Essential hypertension September 25, 2024 12:40pm Non-rheumatic tricuspid valve insufficie ncy September 25, 2024 12:40pm Atrial fibrillation November 13, 2024 11:0 3am Diastolic heart failure November 13, 2024 11:03am Acquired atrial septal defect (ASD) November 13, 2024 11:03am Essential hypertension November 13, 2024 1 1:03am Non-rheumatic tricuspid valve insufficie ncy November 13, 2024 11:03am Chief Complaint Admit Date 3 M FU August 14, 2024 1:2 0pm 6 WK FU September 25, 2024 12: 40pm NODULE October 29, 2024 11:37 am 8 WK FU November 13, 2024 11:0 3am EORDER November 13, 2024 1:29 pm THYROID U/S RESULTS November 26, 2024 8:51 am Chief Complaint Admit Date 3 M FU August 14, 2024 1:2 0pm 6 WK FU September 25, 2024 12: 40pm NODULE October 29, 2024 11:37 am 8 WK FU November 13, 2024 11:0 3am EORDER November 13, 2024 1:29 pm THYROID U/S RESULTS November 26, 2024 8:51 am EORDERS November 28, 2024 1:30p m Reason for Visit Admit Date Atrial fibrillation August 14, 2024 1:2 0pm Lower extremity edema August 14, 2024 1 :20pm Shortness of breath August 14, 2024 1:2 0pm Acquired atrial septal defect (ASD) Dorian 2024 1:20pm Essential hypertension August 14, 2024 1:20pm Non-rheumatic tricuspid valve insufficie ncy August 14, 2024 1:20pm Atrial fibrillation September 25, 2024 12: 40pm Lower extremity edema September 25, 2024 1 2:40pm Shortness of breath September 25, 2024 12: 40pm Acquired atrial septal defect (ASD) Apri l 2024 12:40pm Essential hypertension September 25, 2024 12:40pm Non-rheumatic tricuspid valve insufficie ncy September 25, 2024 12:40pm Atrial fibrillation November 13, 2024 11:0 3am Diastolic heart failure November 13, 2024 11:03am Acquired atrial septal defect (ASD) November 13, 2024 11:03am Essential hypertension November 13, 2024 1 1:03am Non-rheumatic tricuspid valve insufficie ncy November 13, 2024 11:03am Multiple thyroid nodules November 26, 2024 8:51am Additional Source Comments INFORMATION SOURCE (unrecogn ized section and content) DATE CREATED AUTHOR 11/22/2017 [facility] DATE CREATED AUTHOR AUTHOR'S ORGANIZ ATION 11/28/2024 [facility] Goals (unrecognized section and content) Goals may be documented in a n alternate sectionGoals may be documented in an alternate sectionGoals may be documented in an alternate sectionGoals may be documented in an alternate sectionGoals may be documented in an alternate sectionGoals may be documented in an alternate sectionGoals may be documented in an alternate sectionGoals may be documented in an alternate sectionGoals may be documented in an alternate sectionGoals may be documented in an alternate sectionGoals may be documented in an alternate sectionGoals may be documented in an alternate sectionGoals may be documented in an alternate sectionGoals may be documented in an alternate sectionGoals may be documented in an alternate sectionGoals may be documented in an alternate sectionGoals may be documented in an alternate sectionGoals may be documented in an alternate sectionGoals may be documented in an alternate section Care Teams (unrecognized sec tion and content) Team Status: Active Member Role Status Dates Dr. Blue Lambert MD Family Provider Active Dr. Blue Lambert MD Primary Care Provider Active Team Status: Inactive Member Role Status Dates Dr. Blue Lambert MD Primary Care Provider, Referr ing Provider Active Abena Cardenas GRANTS ASSISTANT, GRANTS ASSISTANT-C Attending Provider Active Team Status: Inactive Member Role Status Dates Dr. Blue Lambert MD Primary Care Provider Active Abena Cardenas GRANTS ASSISTANT, GRANTS ASSISTANT-C Attending Provider, Referring P ramón Active Team Status: Active Member Role Status Dates Dr. Blue Lambert MD Primary Care Pr ovider, Attending Provider, Referring Provider Active Team Status: Inactive Member Role Status Dates Dr. Blue Lambert MD Primary Care Provider, Attend ing Provider Active Team Status: Inactive Member Role Status Dates Dr. Blue Lambert MD Primary Care Pr ovider, Attending Provider, Referring Provider Active Team Status: Inactive Member Role Status Dates Dr. Blue Lambert MD Primary Care Provider Active Abena Cardenas GRANTS ASSISTANT, GRANTS ASSISTANT-C Attending Provider Active Team Status: Active Member Role Status Dates Dr. Blue Lambert MD Primary Care Provider Active Dr. Jb Ryan MD Attending Provider Active Team Status: Active Member Role Status Dates Dr. Blue Lambert MD Primary Care Provider Active Team Status: Inactive Member Role Status Dates Dr. Blue Lambert MD Primary Care Provider Active Start: May 11, 2024 End: May 11, 2024 Dr. Blue Lambert MD Attending Provider Active Start: May 11, 2024 End: May 11, 2024 Dr. Blue Lambert MD Referring Provider Active Start: May 11, 2024 End: May 11, 2024 Team Status: Inactive Member Role Status Dates Dr. Blue Lambert MD Primary Care Provider Active Start: June 22, 2024 End: June 22, 2024 Dr. Blue Lambert MD Referring Provider Active Start: June 22, 2024 End: June 22, 2024 Dr. Dane Werner DO Attending Provider Active Start: June 22, 2024 End: June 22, 2024 Team Status: Inactive Member Role Status Dates Dr. Blue Lambert MD Primary Care Provider Active Start: August 14, 2024 End: August 14, 2024 Dr. Blue Lambert MD Referring Provider Active Start: August 14, 2024 End: August 14, 2024 CHRISTINA Pike Attending Provider Active St art: August 14, 2024 End: August 14, 2024 Team Status: Inactive Member Role Status Dates Dr. Blue Lambert MD Primary Care Provider Active Start: August 14, 2024 End: August 14, 2024 CHRISTINA Pike Attending Provider Active St art: August 14, 2024 End: August 14, 2024 CHRISTINA Pike Referring Provider Active St art: August 14, 2024 End: August 14, 2024 Team Status: Inactive Member Role Status Dates Dr. Blue Lambert MD Primary Care Provider Active Start: September 12, 2024 End: September 12, 2024 Dr. Blue Lambert MD Attending Provider Active Start: September 12, 2024 End: September 12, 2024 Dr. Blue Lambert MD Referring Provider Active Start: September 12, 2024 End: September 12, 2024 Team Status: Inactive Member Role Status Dates Dr. Blue Lambert MD Primary Care Provider Active Start: September 25, 2024 End: September 25, 2024 Dr. Blue Lambert MD Referring Provider Active Start: September 25, 2024 End: September 25, 2024 CHRISTINA Pike Attending Provider Active St art: September 25, 2024 End: September 25, 2024 Team Status: Inactive Member Role Status Dates Dr. Blue Lambert MD Primary Care Provider Active Start: October 29, 2024 End: October 29, 2024 Dr. Rainer Weston MD Attending Provider Active Start: October 29, 2024 End: October 29, 2024 Dr. Rainer Weston MD Referring Provider Active Start: October 29, 2024 End: October 29, 2024 Team Status: Inactive Member Role Status Dates Dr. Blue Lambert MD Primary Care Provider Active Start: November 13, 2024 End: November 13, 2024 Dr. Blue Lambert MD Referring Provider Active Start: November 13, 2024 End: November 13, 2024 CHRISTINA Pike Attending Provider Active St art: November 13, 2024 End: November 13, 2024 Team Status: Inactive Member Role Status Dates Dr. Blue Lambert MD Primary Care Provider Active Start: November 13, 2024 End: November 13, 2024 CHRISTINA Pike Attending Provider Active St art: November 13, 2024 End: November 13, 2024 CHRISTINA Pike Referring Provider Active St art: November 13, 2024 End: November 13, 2024 Team Status: Active Member Role/Relationship Status Dates Dr. Blue Lambert MD Primary Care Provider Active Team Status: Inactive Member Role/Relationship Status Dates Dr. Blue Lambert MD Primary Care Provider Active Start: August 14, 2024 End: August 14, 2024 Dr. Blue Lambert MD Referring Provider Active Start: August 14, 2024 End: August 14, 2024 CHRISTINA Pike Attending Provider Active St art: August 14, 2024 End: August 14, 2024 Team Status: Inactive Member Role/Relationship Status Dates Dr. Blue Lambert MD Primary Care Provider Active Start: August 14, 2024 End: August 14, 2024 CHRISTINA Pike Attending Provider Active St art: August 14, 2024 End: August 14, 2024 CHRISTINA Pike Referring Provider Active St art: August 14, 2024 End: August 14, 2024 Team Status: Inactive Member Role/Relationship Status Dates Dr. Blue Lambert MD Primary Care Provider Active Start: September 12, 2024 End: September 12, 2024 Dr. Blue Lambert MD Attending Provider Active Start: September 12, 2024 End: September 12, 2024 Dr. Blue Lambert MD Referring Provider Active Start: September 12, 2024 End: September 12, 2024 Team Status: Inactive Member Role/Relationship Status Dates Dr. Blue Lambert MD Primary Care Provider Active Start: September 25, 2024 End: September 25, 2024 Dr. Blue Lambert MD Referring Provider Active Start: September 25, 2024 End: September 25, 2024 CHRISTINA Pike Attending Provider Active St art: September 25, 2024 End: September 25, 2024 Team Status: Inactive Member Role/Relationship Status Dates Dr. Blue Lambert MD Primary Care Provider Active Start: October 29, 2024 End: October 29, 2024 Dr. Rainer Weston MD Attending Provider Active Start: October 29, 2024 End: October 29, 2024 Dr. Rainer Weston MD Referring Provider Active Start: October 29, 2024 End: October 29, 2024 Team Status: Inactive Member Role/Relationship Status Dates Dr. lBue Lambert MD Primary Care Provider Active Start: November 13, 2024 End: November 13, 2024 Dr. Blue Lambert MD Referring Provider Active Start: November 13, 2024 End: November 13, 2024 CHRISTINA Pike Attending Provider Active St art: November 13, 2024 End: November 13, 2024 Team Status: Inactive Member Role/Relationship Status Dates Dr. Blue Lambert MD Primary Care Provider Active Start: November 13, 2024 End: November 13, 2024 CHRISTINA Pike Attending Provider Active St art: November 13, 2024 End: November 13, 2024 CHRISTINA Pike Referring Provider Active St art: November 13, 2024 End: November 13, 2024 Team Status: Inactive Member Role/Relationship Status Dates Dr. Blue Lambert MD Primary Care Provider Active Start: November 26, 2024 End: November 26, 2024 Dr. Blue Lambert MD Referring Provider Active Start: November 26, 2024 End: November 26, 2024 Dr. Rainer Weston MD Attending Provider Active Start: November 26, 2024 End: November 26, 2024 Team Status: Inactive Member Role/Relationship Status Dates Dr. Blue Lambert MD Primary Care Provider Active Start: November 26, 2024 End: November 26, 2024 Dr. Rainer Wetson MD Attending Provider Active Start: November 26, 2024 End: November 26, 2024 Team Status: Active Member Role/Relationship Status Dates Dr. Blue Lambert MD Primary Care Provider Active Start: November 28, 2024 Dr. Blue Lambert MD Attending Provider Active Start: November 28, 2024 Dr. Blue Lambert MD Referring Provider Active Start: November 28, 2024 FOR RECORDS PERTAINING TO PATIENTS WHO ARE OR HAVE BEEN ENROLLED IN A CHEMICAL DEPENDENCY/SUBSTANCEABUSE PROGRAM, SOME INFORMATION MAY BE OMITTED. This clinical summary was aggregated from multiple sources. Caution should be exercised in using it in the provision of clinical care. This summary normalizes information from multiple sources, and as a consequence, information in this document may materially change the coding, format and clinical context of patient data. In addition, data may be omitted in some cases. CLINICAL DECISIONS SHOULD BE BASED ON THE PRIMARY CLINICAL RECORDS. [employer] provides no warranty or guarantee of the accuracy or completeness of information in this document.
== END | disposition home or self-care (01) ==
LOC: MTLAB 13:32
PROVIDERS: PCP Family Medicine; Referring Provider Family Medicine; Visit Provider Family Medicine
DX: I10 Essential (primary) hypertension (principal); I48.91 Unspecified atrial fibrillation; D64.9 Anemia, unspecified; E80.6 Other disorders of bilirubin metabolism; M85.80 Other specified disorders of bone density and structure, unspecified site; R73.02 Impaired glucose tolerance (oral)
CPT/HCPCS: 80048; 80061; 80076; 82306; 82607; 83036; 83735; 84439; 84443; 85025

== ENCOUNTER → 2025-02-13 | Outpatient (CLI) | payer MEDICARE, OTHER, SELFPAY ==
[2025-02-13 12:50] LABS: Hematocrit 35.3 % (37-47); Hemoglobin 12.9 g/dL (12.0-15.0); Immature Granulocytes Count 0.030 X10^3/uL (0.0-0.0); Mean Corp Hgb Conc 36.5 g/dL (32-36); Mean Corpuscular Volume 102.3 fL (81-99); Mean Platelet Vol. 11.3 fl (6.2-12.0); NRBC Flagged by Analyzer 1.0 % (0-5); POSITIVE DIFFERENTIAL YES; POSITIVE MORPHOLOGY YES; Platelet Count 195 K/mm3 (150-450); RBC Distribution Width CV 30.8 % (11.6-14.6); Red Blood Count 3.45 M/mm3 (4.2-5.4); White Blood Count 8.0 K/mm3 (4.4-11.0)
[2025-02-13 12:51] LABS: Differential Indicated SCAN CRITERIA MET; RBC Distribution Width SD 110.6 fl (35.1-43.9)
[2025-02-13 13:07] LABS: Pro- Brain NATRIURETIC PEPTIDE 2117 pg/mL (<=1800)
[2025-02-13 13:10] LABS: Anion Gap 11 (5-15); BUN 14 mg/dL (4-19); BUN/Creat Ratio 18.1 RATIO (10-20); Calcium,Total 9.2 mg/dL (7.6-11.0); Carbon Dioxide 24.2 mmol/L (21.0-32.0); Chloride 100 mmol/L (98-108); Glucose 103 mg/dL (70-99); Potassium 4.7 mmol/L (3.3-5.1)
[2025-02-13 13:11] LABS: Anisocytosis 1+
[2025-02-13 13:13] LABS: Target Cells 1+
== END | disposition home or self-care (01) ==
LOC: LAB 12:13
PROVIDERS: PCP Family Medicine; Referring Provider Student in an Organized Health Care Education/Training Program; Visit Provider Student in an Organized Health Care Education/Training Program
DX: I50.31 Acute diastolic (congestive) heart failure (principal); I48.91 Unspecified atrial fibrillation; R60.0 Localized edema; R06.02 Shortness of breath
CPT/HCPCS: 36415; 80048; 83880; 85025

== ENCOUNTER → 2025-02-20 | Outpatient (CLI) | payer MEDICARE, OTHER, SELFPAY ==
--- NOTE | 2025-02-20 08:16 | CT_ITS ---
PROCEDURE: CTA CHEST W/WO CONTRAST 02/20/2025 REASON FOR EXAM: MENENDEZ-R/O PE TECHNIQUE: Procedure Code: [id number] Modality: CT Procedure: CTA CHEST W/WO CONTRAST Multiplanar Sagittal and Coronal images were obtained. CONTRAST: Isovue 370 VOLUME: 73 mL One or more dose reduction techniques were used (e.g., Automated exposure control, adjustment of the mA and/or kV according to patient size, use of iterative reconstruction technique). RADIATION DOSE SUMMARY: CTDlvol: 5.33 mGy DLP: 186.81 mGycm COMPARISON: None. # of known CTs in the past 12 months: 0 # of known Cardiac Nuclear Medicine Studies in the past 12 months: 0 FINDINGS: Thoracic Aorta: No aneurysm. Atherosclerotic calcifications of the aorta. Heart: Large cardiomegaly. Atherosclerotic calcifications of the coronary arteries. Pulmonary Vessels: No evidence of pulmonary embolism. Hardware: Unremarkable. Lymph nodes: No lymphadenopathy. Lungs and Airways: Diffuse ground-glass densities. Pleura: Large right and moderate left pleural effusions. Upper Abdomen: Contrast reflux into the the hepatic vein consistent with right heart failure. Bones: No acute bony abnormalities. CT/CTA Chest W/WO Contrast IMPRESSION: Cardiomegaly, bilateral pleural effusions and diffuse ground-glass densities co nsistent with CHF. No evidence of pulmonary embolism. Reading Location: [facility]
== END | disposition home or self-care (01) ==
LOC: CT 08:16
PROVIDERS: PCP Family Medicine; Referring Provider Nurse Practitioner Gerontology; Visit Provider Nurse Practitioner Gerontology
DX: R06.09 Other forms of dyspnea (principal); I50.31 Acute diastolic (congestive) heart failure; R60.0 Localized edema
CPT/HCPCS: 71275; Q9967; A4216

== ENCOUNTER → 2025-02-28 | Outpatient (CLI) | payer MEDICARE, OTHER, SELFPAY | END | disposition home or self-care (01) | LOC: PSN 12:12 | PROVIDERS: PCP Family Medicine; Referring Provider Student in an Organized Health Care Education/Training Program; Visit Provider Student in an Organized Health Care Education/Training Program | DX: I48.91 Unspecified atrial fibrillation (principal) | CPT/HCPCS: 93225; 93226 ==

== ENCOUNTER → 2025-03-13 | Outpatient (CLI) | payer MEDICARE, OTHER, SELFPAY ==
--- NOTE | 2025-03-13 12:50 | ECHOD_ITS ---
Reason For Study Reason For Study: CHF, SOB Procedure This was a 2D Doppler, Color Flow transthoracic echocardiogram. Exam performed in department. Left Ventricle Normal LV size. The left ventricular ejection fraction is 60 %. Stage 3 diastolic dysfunction. No regional wall motion abnormalities noted. Right Ventricle Normal RV size. Normal systolic function. Atria The left atrium is severely enlarged. The right atrium is moderately enlarged. Mitral Valve Mild (1+) eccentric mitral valve insufficiency. Tricuspid Valve Normal tricuspid valve. Moderate (2+) tricuspid valve insufficiency. Pulmonary artery systolic pressure is 64 mmHg. Aortic Valve Trisinus/trileaflet aortic valve. Mild (1+) aortic valve insufficiency. Pulmonic Valve Normal pulmonic valve. Great Vessels Normal aortic root. The pulmonary artery is normal size. Inferior vena cava collapse with sniff. Pericardium/Pleural No pericardial effusion. MMode/2D Measurements & Calculations LVIDd: 4.3 cm IVSd: 0.89 cm LVOT diam: 1.8 cm LVIDs: 2.8 cm LVPWd: 0.95 cm LVOT area: 2.4 cm2 RVDd: 4.2 cm FS: 34.2 % Ao root diam: 3.2 cm LAV(MOD-bp): 113.8 ml LVAd ap4: 28.0 cm2 LAV(MOD-bp) Indexed: 51.7 ml/m2 LVLd ap4: 7.1 cm LAV(MOD-sp2): 101.4 ml EDV(MOD-sp4): 91.5 ml LAV(MOD-sp4): 118.7 ml EDV(sp4-el): 94.0 ml LVAs ap4: 15.6 cm2 LVLs ap4: 6.0 cm ESV(MOD-sp4): 36.1 ml ESV(sp4-el): 34.5 ml EF(MOD-sp4): 60.6 % EF(sp4-el): 63.3 % SV(MOD-sp4): 55.4 ml SV(sp4-el): 59.5 ml LA A4 area: 32.7 cm2 SI(MOD-sp4): 25.2 ml/m2 LA dimension(2D): 5.2 cm RA A4 area: 28.7 cm2 TAPSE: 1.7 cm Time Measurements MV dec time: 0.17 sec Doppler Measurements & Calculations MV E max satish: 168.7 cm/sec Lat Peak E' Satish: 9.0 cm/sec Med Peak E' Satish: 7.4 cm/sec MV A max satish: 36.8 cm/sec E/E' lat: 18.8 E/E' med: 22.7 MV E/A: 4.6 MV V2 max: 180.2 cm/sec MV P1/2t max satish: 181.2 cm/sec Ao V2 max: 173.5 cm/sec MV max P.0 mmHg MV P1/2t: 61.9 msec Ao max P.0 mmHg MV V2 mean: 87.2 cm/sec Ao V2 mean: 126.6 cm/sec MV mean P.9 mmHg MV dec slope: 856.7 cm/sec2 Ao mean P.3 mmHg MV V2 VTI: 43.5 cm MVA(P1/2t): 3.6 cm2 Ao V2 VTI: 44.1 cm AV (velocity ratio): 0.75 MVA(VTI): 1.9 cm2 AGNIESZKA(I,D): 1.8 cm2 AGNIESZKA(V,D): 1.8 cm2 AI max satish: 383.1 cm/sec LV V1 max: 127.3 cm/sec MR max satish: 437.9 cm/sec AI max P.7 mmHg LV V1 max P.5 mmHg MR max P.7 mmHg LV V1 mean P.6 mmHg AI dec slope: 139.6 cm/sec2 LV V1 mean: 87.7 cm/sec AI P1/2t: 804.0 msec LV V1 VTI: 33.2 cm SV(LVOT): 80.5 ml TR max satish: 384.5 cm/sec TR max P.3 mmHg ECHO/Echo Complete Interpretation Summary The left ventricular ejection fraction is 60 %. Normal LV size. Stage 3 diastolic dysfunction. The left atrium is severely enlarged. The right atrium is moderately enlarged. Mild (1+) aortic valve insufficiency. Ordering Physician: Asim Ireland Referring Physician: Asim Ireland Performed By: Renan Farias RCS
== END | disposition home or self-care (01) ==
LOC: CVS 12:49
PROVIDERS: PCP Family Medicine; Referring Provider Student in an Organized Health Care Education/Training Program; Visit Provider Student in an Organized Health Care Education/Training Program
DX: R60.0 Localized edema (principal); R06.02 Shortness of breath
CPT/HCPCS: 93306

== ENCOUNTER → 2025-03-16 | Outpatient (CLI) | payer MEDICARE, OTHER, SELFPAY ==
--- OUTSIDE RECORDS SUMMARY | 2025-03-16 09:08 | XMS RPT_ITS | CCD ---
Author Organization [facility] CliniSywv Care Team Providers Care Tourist Guide Name Role Phone Dr. Blue Lambert Primary Care Provider Dr. Blue Lambert Referring Provider CHRISTINA Arzate Attending Provider Dr. Blue Lambert Primary Care Provider [phone] Dr. Agustin Epstein Attending Provider Dr. Agustin Epstein Referring Provider Dr. Blue Lambert Referring Provider 1([facility])[phone] Dr. Charlie Stephens Attending Provider [phone] Jim Hirsch Attending Provider 1([facility])[phone] DO Laura Saunders Referring Provider Dr. Blue Lambert Primary Care Provider [phone] Dr. Blue Lambert Referring Provider Ronald PINTO, WASHING TUB OPERATOR-C Abena Attending Provider Dr. Blue Lambert Primary Care Provider [phone] Dr. Blue Lambert Referring Provider Ronald PINTO, WASHING TUB OPERATOR-C Abena Attending Provider Dr. Blue Lambert Primary Care Provider [phone] Dr. Blue Lambert Referring Provider Ronald PINTO, WASHING TUB OPERATOR-C Abena Attending Provider Dr. Blue Lambert Primary Care Provider 1([facility] )[phone] Dr. Blue Lambert Referring Provider 1([facility])[phone] Ronald WASHING TUB OPERATORSANTINO Attending Provider Dr. Jb Ryan Attending Provider Petra CAIN, Dr. Blue Jacques Primary Care Provider [phone] Petra CAIN, Dr. Blue Jacques Attending Provider Petra CAIN, Dr. Blue Jacques Referring Provider Debbi TO, Dr. Vela Attending Provider Yair Gauthier Attending Provider [phone] Yair Gauthier Referring Provider Petra CAIN, Dr. Blue Jacques Primary Care Provider [phone] Petra CAIN, Dr. Blue Jacques Referring Provider [phone] Petra CAIN, Dr. Blue Jacques Attending Provider Petra CAIN, Dr. Blue Jacques Primary Care Provider [phone] Petra CAIN, Dr. Blue Jacques Referring Provider [phone] Enrico CAIN, Dr. Spear Attending Provider Enrico CAIN, Dr. Spear Referring Provider Petra CAIN, Dr. Blue Jacques Primary Care Physician Enrico CAIN, Dr. Spear Attending Physician Petra CAIN, Dr. Blue Jacques Referring Provider [phone] Yair Gauthier Attending Physician [phone] Yair Gauthier Referring Provider [phone] Dr. Blue Lambert MD Attending Physician [phone] Dr. Blue Lambert MD Primary Care Physician Dr. Rainer Weston MD Attending Physician Yair Gauthier Nurse Practitioner [phone] Abena Apodaca Attending Physician Abena Apodaca Referring Provider [phone] Blue Lambert Referring Unavailable Yair Ireland Attending Unavailable Blue Lambert Primary Care Unavailable Rainer Weston Attending Unavailable Schinner, Blue E Primary Care Unavailable Schinner, Blue E Referring Unavailable Schinner, Blue E Primary Care Unavailable Schinner, Blue E Referring Unavailable Schinner, Blue E Attending Unavailable Demiter, Yair Attending Unavailable Schinner, Blue E Primary Care Unavailable Schinner, Blue E Referring Unavailable Schinner, Blue E Primary Care Unavailable Jb Ryan Attending Unavailable Rainer Weston Referring Unavailable Rainer Weston Attending Unavailable Schinner, Bule E Primary Care Unavailable Schinner, Blue E Primary Care Unavailable Demiter, Yair Attending Unavailable Demiter, Yair Referring Unavailable Demiter, Yair Attending Unavailable Schinner, Blue E Primary Care Unavailable Demiter, Yair Referring Unavailable Schinner, Blue E Primary Care Unavailable Schinner, Blue E Referring Unavailable Schinner, Blue E Attending Unavailable Demiter, Yair Attending Unavailable Demiter, Yair Referring Unavailable Schinner, Blue E Primary Care Unavailable Rainer Weston Attending Unavailable Schinner, Blue E Primary Care Unavailable Schinner, Blue E Primary Care Unavailable Schinner, Blue E Referring Unavailable Schinner, Blue E Attending Unavailable Schinner, Blue E Primary Care Unavailable Demiter, Yair Referring Unavailable Demiter, Yair Attending Unavailable Demiter, Yair Attending Unavailable Schinner, Blue E Primary Care Unavailable Demiter, Yair Referring Unavailable Schinner, Blue E Primary Care Unavailable Demiter, Yair Consulting Unavailable Ronald PINTO, Abena Referring Unavailable Ronald PINTO, Abena Attending Unavailable Schinner, Blue E Primary Care Unavailable Schinner, Blue E Referring Unavailable Schinner, Blue E Attending Unavailable Schinner, Blue E Primary Care Unavailable Schinner, Blue E Referring Unavailable Demiter, Yair Attending Unavailable Schinner, Blue E Primary Care Unavailable Schinner, Blue E Referring Unavailable Demiter, Yair Attending Unavailable Dane Werner Attending Unavailable Schinner, Blue E Primary Care Unavailable Schinner, Blue E Referring Unavailable Allergies Allergy Classification Reported Allergen(s) Allergy Type Date of Onset Reaction(s) Facility (20 sources) amoxicillin; Translations: [AMOXICILLIN] Drug Allergy 5 AOF, throat swelling [facility] (20 sources) ciprofloxacin; Translations: [CIPROFLOXACIN] Drug Allergy 4 AOF, GI upset [facility] (1 source) diphenhydrAMINE; Translations: [DIPHENHYDRAMINE HCL] Drug Allergy 5 AOF [facility] (20 sources) amLODIPine Drug Allergy 2 swelling [facility] (20 sources) diphenhydrAMINE Drug Allergy 2 jittery [facility] (20 sources) Lisinopril Drug Allergy 2 Angioedema [facility] (1 source) amLODIPine Drug Allergy 5 [facility] (1 source) diphenhydrAMINE Drug Allergy 5 [facility] (1 source) Lisinopril Drug Allergy 5 [facility] Repository Medications Current Medications Medication Drug Class(es) Dates Sig (Normalized) Sig (Original) apixaban 2.5 mg oral tablet (20 sources) Factor Xa Inhibitor Start: 02-13-2025 take 1 tablet by mouth twice daily Start: 11-13-2020 End: 03-06-2024 take 1 tablet by mouth twice daily Apixaban (Eliquis) 5 mg tablet Discontinued 5 mg PO TWICE A DAY November 13, 2020 12:00am March 06, 2024 2:12pm blood thinner ascorbic acid 500 mg oral capsule (12 sources) Vitamin C Start: 08-14-2024 take 1 capsule by mouth once daily ascorbic acid 226 mg / beta carotene [id number] unt / cuprous oxide 0.8 mg / dl-alpha tocopheryl acetate 200 unt / zinc oxide 34.8 mg oral capsule (4 sources) Vitamin C Start: 07-06-2022 calcium carbonate 1250 mg / cholecalciferol 500 unt / vitamin k1 0.04 mg chewable tablet (20 sources) Vitamin D, Warfarin Reversal Agent, Vitamin K Start: 11-13-2020 Start: 08-03-2018 End: 11-13-2020 Calcium-Vitamin D3-Vitamin K (Viactiv) 500-500-40 mg-unit-mcg tablet,chewable Discontinued {tbl} PO 0 October 19, 2018 12:00am November 13, 2020 11:18am cholecalciferol 0.125 mg oral tablet (20 sources) Vitamin D Start: 11-13-2020 End: 12-23-2023 take 1 tablet by mouth every other day ferrous sulfate 325 mg oral tablet (12 sources) Start: 03-06-2024 take 1 tablet by mouth once daily 24 hr metoprolol succinate 100 mg extended release oral tablet (20 sources) beta-Adrenergic Bridgett Start: 11-27-2020 take 1 tablet by mouth once daily Start: 11-13-2020 End: 11-27-2020 take 1 tablet [...] sources) Start: 03-03-2024 take 1 tablet by lori th once daily Start: 01-10-2023 End: 07-13-2023 take 1 tablet by mouth once daily Potassium Chloride 20 mEq tablet extended release Discontinued 20 meq PO DAILY 90 January 10, 2023 4:06pm July 13, 2023 4:28pm spironolactone 50 mg oral tablet (20 sources) Aldosterone Antagonist Start: 08-15-2024 take 1 tablet by mouth once daily Start: 07-13-2023 End: 08-15-2024 take 1 tablet by mouth once daily Spironolactone 25 mg tablet Discontinued 25 mg PO DAILY 90 July 10, 2024 6:55pm August 15, 2024 5:14pm diuretic torsemide 20 mg oral tablet (3 sources) Loop Diuretic Start: 02-13-2025 take 1 tablet by mouth twice daily Vitamins A,C,N-Tekt-Nwijap (Preservision Areds) 4,296 mcg-226 mg-90 mg capsule (15 sources) Start: 07-06-2022 Vitamins A,C,T-Rrpx-Ykrbmb (Preservision Areds) 4,296 mcg-226 mg-90 mg capsule Active 1 NMA PO DAILY July 06, 2022 1:00am supplement Start: 07-06-2022 Vitamins A,C,E -Zinc-Copper (Preservision Areds) 4,296 mcg-226 mg-90 mg capsule Active 1 NMA PO DAILY July 06, 2022 1:00am Start: 07-06-2022 take 1 capsule by [facility] once daily Vitamins A,C,V-Pcao-Ekwpwc (Preservision Areds) 4,296 mcg-226 mg-90 mg capsule Active 1 CAP PO DAILY July 06, 2022 12:00am Start: 07-06-2022 take 1 capsule by [facility] once daily Vitamins A,C,I-Qiem-Gkxcvw (Preservision Areds) 4,296 mcg-226 mg-90 mg capsule [...] 12, 2017 12:00am August 24, 2017 9:57am aspirin 81 mg delayed release oral tablet (20 sources) Platelet Aggregation Inhibitor, Nonsteroidal Anti-inflammatory Drug [...] 2-5) PO benzonatate 100 mg oral capsule (20 sources) Non-narcotic Antitussive Start: 08-11-2021 End: 01-01-2022 take 2 capsules by mouth three times daily as needed for cough Benzonatate 100 mg capsule Discontinued 200 mg PO THREE TIMES A DAY as needed for cough August 11, 2021 12:00am January 01, 2022 10:04am Start: 08-11-2021 End: 01-01-2022 take 200 mg by mouth three times daily Benzonatate Discontinued 200 MG PO THREE TIMES A DAY August 11, 2021 12:00am January 01, 2022 10:04am bumetanide 0.5 mg oral tablet (12 sources) Loop Diuretic Start: 03-06-2024 End: 03-06-2024 [...] 300 mg PO THREE TIMES A DAY 30 October 26, 2018 12:00am February 25, 2019 8:23am Start: 08-03-2018 End: 10-19-2018 take 1 capsule by mouth three times daily Clindamycin Hcl 300 mg capsule Discontinued 300 mg PO THREE TIMES A DAY August 03, 2018 1:00am October 19, 2018 9:30am dapagliflozin 10 mg oral tablet (12 sources) Sodium-Glucose Cotransporter 2 Inhibitor Start: 08-15-2024 End: 08-17-2024 take 1 tablet by mouth once daily in the morning Dapagliflozin Propanediol (Farxiga) 10 mg tablet Discontinued 10 mg PO EVERY MORNING 30 August 15, 2024 12:00am August 17, 2024 3:58pm digoxin 0.125 mg oral tablet (20 sources) Cardiac Glycoside Start: 08-15-2024 End: 10-02-2024 take 1 tablet by mouth once daily Digoxin 125 mcg (0.125 mg) tablet Discontinued 125 ug PO daily 30 September 25, 2024 1:29pm October 02, 2024 10:05am doxycycline hyclate 100 mg oral capsule (12 sources) Tetracycline-class Drug Start: 02-27-2024 End: 03-06-2024 take 1 capsule by mouth twice daily Doxycycline Hyclate 100 mg capsule Discontinued 100 mg PO TWICE A DAY February 27, 2024 12:00am March 06, 2024 1:34pm infection empagliflozin 10 mg oral tablet (20 sources) Sodium-Glucose Cotransporter 2 Inhibitor Start: 08-17-2024 End: 10-02-2024 take 1 tablet by mouth once daily in the morning Empagliflozin (Jardiance) 10 mg tablet Discontinued 10 mg PO EVERY MORNING 28 06September 25, 2024 1:29pm October 02, 2024 10:05am fluticasone propionate 0.05 mg/actuat metered dose nasal spray (20 sources) Corticosteroid Start: 08-12-2017 End: 08-03-2018 Fluticasone Propionate 50 mcg/actuation spray,suspension Discontinued 50 ug INTRANASAL TWICE A DAY as needed August 12, 2017 12:00am August 03, 2018 2:55pm furosemide 40 mg oral tablet (20 sources) Loop Diuretic Start: 03-06-2024 End: 02-13-2025 take 1 tablet by mouth twice daily Furosemide (Lasix) 40 mg tablet Discontinued 40 mg PO TWICE A DAY 180 August 06, 2024 1:03pm February 13, 2025 4:43pm diuretic Start: 01-10-2023 End: 03-06-2024 take 1 tablet by mouth once daily Furosemide (Lasix) 40 mg tablet Discontinued 40 mg PO DAILY 90 December 09, 2023 3:52pm March 06, 2024 2:13pm diuretic hydroCHLOROthiazide 25 mg oral tablet (20 sources) Thiazide Diuretic Start: 01-01-2022 End: 01-10-2023 take 1 tablet by mouth once daily Hydrochlorothiazide 25 mg tablet Discontinued 25 mg PO DAILY January 01, 2022 10:31am January 10, 2023 4:06pm Start: 11-27-2020 End: 01-01-2022 take 1 tablet by mouth once daily Hydrochlorothiazide 12.5 mg tablet Discontinued 12.5 mg PO DAILY November 27, 2020 12:00am January 01, 2022 10:33am hydroCHLOROthiazide 12.5 mg / lisinopril 10 mg oral tablet (20 sources) Thiazide Diuretic, Angiotensin Converting Enzyme Inhibitor Start: 08-12-2017 End: 10-19-2018 Lisinopril-Hydrochlorothiazi de 10-12.5 mg tablet Discontinued 1 {tbl} PO daily August 12, 2017 12:00am October 19, 2018 9:31am Start: 08-12-2017 End: 10-19-2018 take 1 tablet by mouth once daily Lisinopril-Hydrochlorothiazide Discontin ued 1 TABLET PO daily August 12, 2017 12:00am October 19, 2018 9:31am lisinopril 10 mg oral tablet (20 sources) Angiotensin Converting Enzyme Inhibitor Start: 10-19-2018 [...] 2024 10:00am predniSONE 10 mg oral tablet (20 sources) Start: 02-25-2019 End: 03-11-2019 Prednisone 10 mg tablet Discontinued 10 mg PO daily 30 12 0 February 25, 2019 12:00am March 08, 2019 12:00am March 11, 2019 12:09am Unspecified contact dermatitis, unspecified cause Take 4 tabs once daily days 1-3 3 tabs once daily days 4-6 2 tabs once daily days 7-9 and 1 tab once daily days 10-12. vitamin b12 1 mg oral tablet (20 sources) Vitamin B12 Start: 03-06-2024 End: 02-13-2025 Cyanocobalamin (Vitamin B-12) 1,000 mcg tablet Discontinued 500 ug PO daily March 06, 2024 1:34pm February 13, 2025 10:55am vitamin Start: 11-13-2020 End: 03-06-2024 take 1 tablet by mouth every other day Cyanocobalamin (Vitamin B-12) 1,000 mcg tablet Discontinued 1000 ug PO every other day December 23, 2023 3:08pm March 06, 2024 1:34pm vitamin Problems Active Problems Problem Classification Problem Date Documented Da te Episodic/Chronic Acute bronchitis (20 sources) Acute bronchitis; Translations: [Acute bronchitis, unspecified] Episodic Cardiac dysrhythmias (20 sources) Atrial fibrillation; Translations: [Unspecified atrial fibrillation] Onset: 03-06-2025 Chronic Chronic obstructive pulmonary disease and bronchiectasis (20 sources) Bronchitis; Translations: [Bronchitis, not specified as acute or chronic] 11-13-2020 Episodic Congestive heart failure; nonhypertensive (20 sources) Diastolic heart failure; Translations: [Unspecified diastolic (congestive) heart failure] Onset: 02-24-2025 11-13-2024 Chronic Deficiency and other anemia (12 sources) Hemolytic anemia; Translations: [Hereditary hemolytic anemia, unspecified] 03-06-2024 Chronic Deficiency and other anemia (14 sources) Anemia; Translations: [Anemia, unspecified] 03-14-2024 Episodic Essential hypertension (20 sources) Essential hypertension; Translations: [Essential (primary) hypertension] Onset: 12-03-2024 Chronic Fluid and electrolyte disorders (19 sources) Hypokalemia; Translations: [Hypokalemia] 01-10-2023 Episodic Heart valve disorders (20 sources) Tricuspid incompetence, non-rheumatic ; Translations: [Nonrheumatic tricuspid (valve) insufficiency] Chronic Malaise and fatigue (20 sources) Fatigue; Translations: [Other fatigue] 01-10-2023 Episodic Other aftercare (2 sources) Patient encounter status; Translations: [Encounter for therapeutic drug level monitoring] 07-13-2023 Episodic Other aftercare (12 sources) Long-term current use of diuretic; Translations: [Encounter for therapeutic drug level monitoring] 07-13-2023 Episodic Other and ill-defined heart disease (20 sources) Acquired atrial septal defect; Translations: [Cardiac septal defect, acquired] 11-27-2020 Chronic Other and ill-defined heart disease (10 sources) Cardiac septal defect, acquired; Translations: [Acquired cardiac septal defect] Chronic Other liver diseases (12 sources) Increased bilirubin level; Translations: [Unspecified jaundice] 03-09-2024 Episodic Other lower respiratory disease (14 sources) Dyspnea on exertion; Translations: [Other forms of dyspnea] 07-13-2023 Episodic Other lower respiratory disease (20 sources) Dyspnea; Translations: [Shortness of breath] 08-14-2024 Episodic Other lower respiratory disease (1 source) Other forms of dyspnea; Translations: [Other forms of dyspnea] Onset: 02-26-2025 Episodic Other lower respiratory disease (1 source) Shortness of breath; Translations: [Shortness of breath] Onset: 02-13-2025 Episodic Other nutritional; endocrine; and metabolic disorders (14 sources) Gilbert's syndrome; 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 Other upper respiratory infections (20 sources) Acute sinusitis; Translations: [Acute sinusitis, unspecified] Episodic Janna-; endo-; and myocarditis; cardiomyopathy (except that caused by tuberculosis or sexually transmitted disease) (20 sources) Pericardial effusion; Translations: [Pericardial effusion (noninflammatory)] 11-13-2020 Episodic Comment on above: Trivial per ECHO 03/19 Poisoning by nonmedicinal substances (20 sources) Bee sting; Translations: [Toxic effect of venom of bees, accidental (unintentional), initial encounter] 11-13-2020 Episodic Residual codes; unclassified (19 sources) Bilateral lower limb edema; Translations: [Localized edema] 01-10-2023 Episodic Residual codes; unclassified (8 sources) Localized edema; Translations: [Edema] Onset: 02-13-2025 01-10-2023 Episodic Residual codes; unclassified (20 sources) [...] visit. Complete details are given in the "procedures" section of this note. Past or Other Problems Problem Classification Problem Date Documented Da te Episodic/Chronic Deficiency and other anemia (1 source) Anemia, unspecified; Translations: [Anemia, unspecified] Onset: 06-11-2024 Episodic Other aftercare (1 source) Encounter for therapeutic drug level monitoring; Translations: [Encounter for therapeutic drug level monitoring] Onset: 11-13-2024 Episodic Other aftercare (1 source) Other [facility] (current) drug therapy; Translations: [Other [facility] (current) drug therapy] Onset: 11-13-2024 Episodic Results Test Name Value Interpretation Reference Range Facility Echo [facility] 03-13-2025 Echo [facility] [address] [place] [address] Echo Complete 03/13/25 1259 MR#: [id number] Acct: [id number] Name: ANANTH BANDA TAYLOR Rep #: [id number] : 1935 89 From: Jb Ryan MD Attending Dr: CHRISTINA Pike Status: REG CL I Ordering Dr: Yair Ireland Date: 03/13/25 Location: [facility] Sex: F C Admitted: Reason For Study Reason For Study: CHF, SOB Procedure This was a 2D Doppler, Color Flow transthoracic echocardiogram. Exam performed in department. Left Ventricle Normal LV size. The left ventricular ejection fraction is 60 %. Stage 3 diastolic dysfunction. No regional wall motion abnormalities noted. Right Ventricle Normal RV size. Normal systolic function. Atria The left atrium is severely enlarged. The right atrium is moderately enlarged. Mitral Valve Mild (1+) eccentric mitral valve insufficiency. Tricuspid Valve Normal tricuspid valve. Moderate (2+) tricuspid valve insufficiency. Pulmonary artery systolic pressure is 64 mmHg. Aortic Valve Trisinus/trileaflet aortic valve. Mild (1+) aortic valve insufficiency. Pulmonic Valve Normal pulmonic valve. Great Vessels Normal aortic root. The pulmonary artery is normal size. Inferior vena cava collapse with sniff. Pericardium/Pleural No pericardial effusion. MMode/2D Measurements Calculations LVIDd: 4.3 cm IVSd: 0.89 cm LVOT diam: 1.8 cm LVIDs: 2.8 cm LVPWd: 0.95 cm LVOT area: 2.4 cm2 RVDd: 4.2 cm FS: 34.2 % Ao root diam: 3.2 cm LAV(MOD-bp): 113.8 ml LVAd ap4: 28.0 cm2 LAV(MOD-bp) Indexed: 51.7 ml/m2 LVLd ap4: 7.1 cm LAV(MOD-sp2): 101.4 ml EDV(MOD-sp4): 91.5 ml LAV(MOD-sp4): 118.7 ml EDV(sp4-el): 94.0 ml LVAs ap4: 15.6 cm2 LVLs ap4: 6.0 cm ESV(MOD-sp4): 36.1 ml ESV(sp4-el): 34.5 ml EF(MOD-sp4): 60.6 % EF(sp4-el): 63.3 % SV(MOD-sp4): 55.4 ml SV(sp4-el): 59.5 ml LA A4 area: 32.7 cm2 SI(MOD-sp4): 25.2 ml/m2 LA dimension(2D): 5.2 cm RA A4 area: 28.7 cm2 TAPSE: 1.7 cm Time Measurements MV dec time: 0.17 sec Doppler Measurements Calculations MV E max ashley: 168.7 cm/sec Lat Peak E' Ashley: 9.0 cm/sec Med Peak E' Ashley: 7.4 cm/sec MV A max ashley: 36.8 cm/sec E/E' lat: 18.8 E/E' med: 22.7 MV E/A: 4.6 MV V2 max: 180.2 cm/sec MV P1/2t max ashley: 181.2 cm/sec Ao V2 max: 173.5 cm/sec MV max P.0 mmHg MV P1/2t: 61.9 msec Ao max P.0 mmHg MV V2 mean: 87.2 cm/sec Ao V2 mean: 126.6 cm/sec MV mean P.9 mmHg MV dec slope: 856.7 cm/sec2 Ao mean P.3 mmHg MV V2 VTI: 43.5 cm MVA(P1/2t): 3.6 cm2 Ao V2 VTI: 44.1 cm AV (velocity ratio): 0.75 MVA(VTI): 1.9 cm2 AGNIESZKA(I,D): 1.8 cm2 AGNIESZKA(V,D): 1.8 cm2 AI max ashley: 383.1 cm/sec LV V1 max: 127.3 cm/sec MR max ashley: 437.9 cm/sec AI max P.7 mmHg LV V1 max P.5 mmHg MR max P.7 mmHg LV V1 mean P.6 mmHg AI dec slope: 139.6 cm/sec2 LV V1 mean: 87.7 cm/sec AI P1/2t: 804.0 msec LV V1 VTI: 33.2 cm SV(LVOT): 80.5 ml TR max ashley: 384.5 cm/sec TR max P.3 mmHg ECHO/Echo Complete Interpretation Summary The left ventricular ejection fraction is 60 %. Normal LV size. Stage 3 diastolic dysfunction. The left atrium is severely enlarged. The right atrium is moderately enlarged. Mild (1+) aortic valve insufficiency. ___ Ordering Physician: Yair Ireland Referring Physician: Yair Ireland Performed By: Renan Farias RCS 03/13/251649 Date Jb Ryan MD CC: Dr. Blue Lambert MD; CHRISTINA Pike Date Dictated: 03/13/25 1259 Date Transcribed: 03/13/251649 Branch Library Clerk: Signed Normal [facility] CTA Chest W/WO Contraston CTA Chest W/WO Contrast [facility] Imaging Services [address] [place] [address] [id number] CTA Chest W/WO Contrast MR#: [id number] Acct: [id number] Name: ANANTH BANDA Rep #: [id number] : 1935 F 89 From: Isaac Palmer MD PCP: Dr. Blue Lambert MD Status: REG CLI Study: CTA Chest W/WO Contrast Date of Exam: 02/20/25 Exam# [id number] Ordering Dr: Abena Cardenas WASHING TUB OPERATOR WASHING TUB OPERATOR- C PROCEDURE: CTA CHEST W/WO CONTRAST 02/20/2025 REASON FOR EXAM: MENENDEZ-R/O PE TECHNIQUE: Procedure Code: [id number] Modality: CT Procedure: CTA CHEST W/WO CONTRAST Multiplanar Sagittal and Coronal images were obtained. CONTRAST: Isovue 370 VOLUME: 73 mL One or more dose reduction techniques were used (e.g., Automated exposure control, adjustment of the mA and/or kV according to patient size, use of iterative reconstruction technique). RADIATION DOSE SUMMARY: CTDlvol: 5.33 mGy DLP: 186.81 mGycm COMPARISON: None. # of known CTs in the past 12 months: 0 # of known Cardiac Nuclear Medicine Studies in the past 12 months: 0 FINDINGS: Thoracic Aorta: No aneurysm. Atherosclerotic calcifications of the aorta. Heart: Large cardiomegaly. Atherosclerotic calcifications of the coronary arteries. Pulmonary Vessels: No evidence of pulmonary embolism. Hardware: Unremarkable. Lymph nodes: No lymphadenopathy. Lungs and Airways: Diffuse ground-glass densities. Pleura: Large right and moderate left pleural effusions. Upper Abdomen: Contrast reflux into the the hepatic vein consistent with right heart failure. Bones: No acute bony abnormalities. CT/CTA Chest W/WO Contrast IMPRESSION: Cardiomegaly, bilateral pleural effusions and diffuse ground-glass densities consistent with CHF. No evidence of pulmonary embolism. Reading Location: [facility] CC: SANTINO Cardenas; Dr. Blue Lambert MD; yair ireland Branch Library Clerk: Signed Normal [facility] Absolute lymphocyte countOrd ered By: Yairshauna Ireland on 02-13-2025 Lymphocytes Auto (Unsp spec) [#/Vol] 2.24 10*3/uL 0.83-4.51 [facility] Absolute neutrophil countOrd ered By: Yair Ireland on 02-13-2025 Neutrophils (Bld) [#/Vol] 3.9 10*3/uL 2.0-7.7 [facility] Anion gap in Serum or Plasma Ordered By: Yair Ireland on 02-13-2025 Anion gap [Moles/Vol] 11 mmol/L 5-15 [facility] Automated lymphocyte count a s percentage of total leukocytesOrdered By: Yair Ireland on 02-13-2025 Lymphocytes/100 WBC Auto (Unsp spec) 27.9 % - [facility] BUN/creatinine ratioOrdered By: Yair Ireland on 02-13-2025 Urea nitrogen/Creatinine [Mass ratio] 18.1 mg/mg - [facility] Basic Metabolic Profile (BMP )on 02-13-2025 BUN/CRE 18.1 RATIO Normal 03-18 [facility] Comment on above: Order Comment: PT ON Y WANTED HEART GROUP ORDERS Performed By: #### L 500.2500, L503.7505, L100.0100 ####[facility] [address] [place], [address] Calcium [Mass/Vol] 9.2 mg/dL Normal 7.6-11.0 [facility] Comment on above: Order Comment: PT ON Y WANTED HEART GROUP ORDERS Performed By: #### L 500.2500, L503.7505, L100.0100 ####[facility] [address] [place], [address] Chloride [Moles/Vol] 100 mmol/L Normal 98-108 [facility] Comment on above: Order Comment: PT ON Y WANTED HEART GROUP ORDERS Performed By: #### L 500.2500, L503.7505, L100.0100 ####[facility] [address] [place], [address] CO2 [Moles/Vol] 24.2 mmol/L Normal 21.0-32.0 [facility] Comment on above: Order Comment: PT ON Y WANTED HEART GROUP ORDERS Performed By: #### L 500.2500, L503.7505, L100.0100 ####[facility] [address] [place], [address] Creatinine [Mass/Vol] 0.79 mg/dL Normal 0.70-1.20 [facility] Comment on above: Order Comment: PT ON Y WANTED HEART GROUP ORDERS Result Comment: Icte aron present, Results may be affected. Performed By: #### L 500.2500, L503.7505, L100.0100 ####[facility] [address] [place], [address] GAP 11 Normal 5-15 [facility] Comment on above: Order Comment: PT ON Y WANTED HEART GROUP ORDERS Performed By: #### L 500.2500, L503.7505, L100.0100 ####[facility] [address] [place], [address] GFR/1.73 sq M.predicted among non-blacks MDRD (S/P/Bld) [Vol rate/Area] 73 mL/min/{1.73_m2} Normal >60 [facility] Comment on above: Order Comment: PT ON Y WANTED HEART GROUP ORDERS Result Comment: mL/m in/1.73m2 CKD-EPI Creatinine Equation (2020) Performed By: #### L 500.2500, L503.7505, L100.0100 ####[facility] [address] [place], [address] Glucose [Mass/Vol] 103 mg/dL High 70-99 [facility] Comment on above: Order Comment: PT ON Y WANTED HEART GROUP ORDERS Performed By: #### L 500.2500, L503.7505, L100.0100 ####[facility] [address] [place], [address] Potassium [Moles/Vol] 4.7 mmol/L Normal 3.3-5.1 [facility] Comment on above: Order Comment: PT ON Y WANTED HEART GROUP ORDERS Result Comment: Hemo lysis present, Results??could be affected. ?? Performed By: #### L 500.2500, L503.7505, L100.0100 ####[facility] [address] [place], [address] Sodium [Moles/Vol] 134 mmol/L Normal 133-145 [facility] Comment on above: Order Comment: PT ON Y WANTED HEART GROUP ORDERS Performed By: #### L 500.2500, L503.7505, L100.0100 ####[facility] [address] [place], [address] Urea nitrogen [Mass/Vol] 14 mg/dL Normal 4-19 [facility] Comment on above: Order Comment: PT ON Y WANTED HEART GROUP ORDERS Performed By: #### L 500.2500, L503.7505, L100.0100 ####[facility] [address] [place], [address] Basophil percentageOrdered B y: Yair Ireland on 02-13-2025 Basophils/100 WBC (Bld) 1.2 % High 0-[address] [facility] CBC W/Diff, Automatedon 01-28 TARGET CELLS 1+ Normal [facility] Comment on above: Performed By: #### L 500.2500, L503.7505, L100.0100 ####[facility] [address] [place], [address] Anisocytosis Ql (Bld) 1+ Normal [facility] Comment on above: Performed By: #### L 500.2500, L503.7505, L100.0100 ####[facility] [address] [place], [address] Carbon dioxide, total [Moles /volume] in Central venous bloodOrdered By: Yair Ireland on 02-13-2025 CO2 [Moles/Vol] 24.2 mmol/L 21.0-32.0 [facility] Cardiology Visit Reporton Cardiology Visit Report [facility] [address] [place] [address] OFFICE VISIT Date of Service: 02/13/25 MR#: [id number] Acct: [id number] Name: ANANTH BANDA Rep #: [id number] 1 : 1935 Provider: CHRISTINA Pike Age/Sex: 89/F Location: [facility] Status: Signed HPI HPI History of Present Illness Details: Ananth Banda is an 89-year-old female who presents here today for cardiovascular follow-up visit.??? She has a history of atrial fibrillation, hypertension, intra-atrial shunt, PFO versus ASD, mitral regurgitation.??? She did undergo a cardioversion. Unfortunately she did not maintain SR. Patient was hospitalized 02/27 - 03/03/2024 for acute anemia and acute on chronic HFpEF. Patient was treated with IV Lasix and transition to p.o. Patient was then seen in the office 03/06/2024 in which patient had concerns of lower extremity edema. At that time, plan consisted of discontinuing Eliquis given the anemia and increasing Lasix to 40 mg twice daily. Patient initially had good response to this treatment with weight loss and significant improvement in edema. However, mid June, patient noticed increasing lower extremity edema and abdominal bloating along with weight gain. Patient was seen in office 08/14/2024 and patient was recommended to add digoxin and Jardiance. She had initiated these medications with improvement in her symptoms; however, ran out of her medication and edema reoccurred. She followed up in August and was recommended to refill these medications. Upon presentation today, patient reports a 10lbs weight gain within the last 1 months. She was staying around 172lbs until about one month ago. She reports worsening in LE edema and shortness of breath. She reports ongoing weakness that she relates to her fluid status. She notices significant bilateral lower extremity edema. Further ROS below. Intake Vital Signs 11/13/24 07:08 11/26/24 09:14 02/13/25 10:53 02/13/25 10:59 Height 5 ft 8 in 5 ft 8 in 5 ft 8 in 5 ft 8 in Weight: 238 lb BMI 36.1 BP 151/82 H 128/50 H Blood Pressure Location Lt brachial Lt brachial Position Sitting Sitting Respiration 18 Pulse 86 Pulse Source Monitor Pulse Oximetry (%) 98 Intake Visit Reasons: 3 M FU Instrument Installer Required: No Is patient in pain?: No Allergies amoxicillin (From Trimox) Allergy (Severe, Verified 02/13/25 10:53) throat swelling lisinopril Allergy (Severe, Verified 02/13/25 10:53) Angioedema amlodipine Adverse Reaction (Mild, Verified 02/13/25 10:53) swelling ciprofloxacin (From Cipro) Adverse Reaction (Verified 02/13/25 10:53) GI upset diphenhydramine (From Benadryl) Adverse Reaction (Verified 02/13/25 10:53) jittery Medications ???Medication ???Instructions ???Recorded ???Confirmed ???Type calcium 500 mg-vitamin D3 500 1 tab PO DAILY supplement 11/13/20 02/13/25 History unit-vitamin K 40 mcg chewable tablet (Viactiv) metoprolol succinate 100 mg 100 mg PO DAILY blood pressure 06/1902/13/25 History tablet,extended release 24 hr vitamins A,C,X-evip-klyqry 4,296 1 cap PO DAILY supplement 07/06/22 02/13/25 History mcg-226 mg-90 mg capsule (PreserVision AREDS) cholecalciferol (vitamin D3) 125 125 mcg PO Q OTHER DAY vitamin 02/13/25 History mcg (5,000 unit) tablet potassium chloride 20 mEq 20 meq PO DAILY #30 tabs 03/03/24 02/13/25 Rx tablet,extended release ferrous sulfate 325 mg (65 mg 325 mg PO QDAY 03/06/24 02/13/25 H istory iron) tablet ascorbic acid (vitamin C) 500 mg 500 mg PO DAILY 08/14/24 02/13/25 History capsule spironolactone 50 mg tablet 50 mg PO DAILY diuretic #90 tabs 0 08/15/24 02/13/25 Rx digoxin 125 mcg (0.125 mg) tablet 125 mcg PO QDAY #90 tabs 10/02/24 02/13/25 Rx empagliflozin 10 mg tablet 10 mg PO QAM #90 tabs 10/02/24 Rx (Jardiance) apixaban 2.5 mg tablet (Eliquis) 2.5 mg PO BID #60 tabs 02/13/25 Rx torsemide 20 mg tablet 20 mg PO BID #60 tabs 02/13/25 Rx Have you fallen in the past year?: No Nurse's Note: Patient states she is drooling a lot, has dry mouth for about one month [facility] Medical History Atrial fibrillation Anemia Gilbert syndrome Hemolytic anemia Elevated bilirubin Bilateral lower extremity edema Acquired atrial septal defect (ASD) Multiple thyroid nodules Osteopenia Normocytic anemia Pericardial effusion Non-rheumatic tricuspid valve insufficiency Non-rheumatic mitral regurgitation Pseudophakia Essential hypertension Bee sting reaction Bronchitis Fatigue Cystic thyroid nodule Hemorrhoid Murmur, heart Surgical History History of cholecystectomy History of tuba (more content not included)... Normal [facility] Chloride assayOrdered By: Ping Ireland on 02-13-2025 Chloride [Moles/Vol] 100 mmol/L 98-108 [facility] Eosinophil percentageOrdered By: Yair Ireland on 02-13-2025 Eosinophils/100 WBC (Bld) 1.2 % 0-5 [facility] Erythrocyte distribution wid th ratioOrdered By: Yair Ireland on 02-13-2025 Erythrocyte distribution width (RBC) [Ratio] 30.8 % High 11.6-14.6 [facility] Erythrocyte distribution wid th standard deviationOrdered By: Yair Ireland on 02-13-2025 Erythrocyte distribution width (RBC) [Ratio] 110.6 fl High 35.1-43.9 [facility] Glomerular filtration rate ( GFR) estimation/1.73 sq m using serum, plasma, or whole bOrdered By: Yair Ireland on 02-13-2025 GFR/1.73 sq M.predicted among non-blacks MDRD (S/P/Bld) [Vol rate/Area] 73 mL/min/{1.73_m2} >60 [facility] Comment on above: mL/min/1.73m2 CKD-EP I Creatinine Equation (2020) Hematocrit Auto (Bld) [Volum e fraction]Ordered By: Yair Ireland on 02-13-2025 Hematocrit (Bld) [Volume fraction] 35.3 % Low 37-47 [facility] Hemoglobin measurementOrdere d By: Yair Ireland on 02-13-2025 Hemoglobin (Bld) [Mass/Vol] 12.9 g/dL 12.0-15.0 [facility] Immature granulocytes/100 WB C Auto (Bld)Ordered By: Yair Ireland on 02-13-2025 Immature granulocytes/100 WBC (Bld) 0.400 % 0.0-0.9 [facility] Comment on above: IG% - Immature Granu locytes (promyelocytes, myelocytes and metamyelocytes) > 1% indicates that a LEFT SHIFT is Present. Laboratory - Hematology and Cell countsOrdered By: Yair Ireland on 02-13-2025 Anisocytosis Ql (Bld) 1+ [facility] MCV (mean corpuscular volume ) determinationOrdered By: Yair Ireland on 02-13-2025 MCV (RBC) [Entitic vol] 102.3 fL High 81-[address] [facility] Mean corpuscular hemoglobin (MCH) determinationOrdered By: Yair Ireland on 02-13-2025 MCH (RBC) [Entitic mass] 37.4 pg High 27.0-32.0 [facility] Mean corpuscular hemoglobin concentration (MCHC) determinationOrdered By: Yair Ireland on 02-13-2025 MCHC (RBC) [Mass/Vol] 36.5 g/dL High 32-36 [facility] Mean platelet volume determi nationOrdered By: Yair Ireland on 02-13-2025 Platelet mean volume (Bld) [Entitic vol] 11.3 fL 6.2-12.0 [facility] Monocyte percentageOrdered B y: Yair Ireland on 02-13-2025 Monocytes/100 WBC (Bld) 20.2 % High 0-[address] [facility] Natriuretic peptide.B prohor ashkan N-Terminal [Mass/volume] in Serum or PlasmaOrdered By: Yair Ireland on 02-13-2025 Natriuretic peptide.B prohormone N-Terminal [Mass/Vol] 2117 pg/mL High <1800 [facility] Comment on above: Heart Failure Unlike ly: < 300 pg/mLHeart Failure Likely< 50 Years: > 450 pg/mL50-75 Years: > 900 pg/mL>75 Years: > 1800 pg/mL Neutrophil percentageOrdered By: Yair Ireladn on 02-13-2025 Neutrophils/100 WBC (Bld) 49.1 % 47-70 [facility] Nucleated red blood cell per centageOrdered By: Yair Ireland on 02-13-2025 Nucleated RBC/100 WBC (Bld) [Ratio] 1.0 % 0-5 [facility] Platelet countOrdered By: Ping Ireland on 02-13-2025 Platelets (Bld) [#/Vol] 195 10*3/uL 150-450 [facility] Potassium measurement (mass/ volume)Ordered By: Yair Ireland on 02-13-2025 Potassium (Unsp spec) [Mass/Vol] 4.7 mmol/L 3.3-5.1 [facility] Comment on above: Hemolysis present, R esults could be affected. Pro- Brain NATRIURETIC PEPTI Frank 02-13-2025 Natriuretic peptide B (Bld) [Mass/Vol] 2117 pg/mL High <=1800 [facility] Comment on above: Order Comment: PT ON Y WANTED HEART GROUP ORDERS Result Comment: Hear t Failure Unlikely: < 300 pg/mL Heart Failure Likely < 50 Years: > 450 pg/mL 50-75 Years: > 900 pg/mL >75 Years: > 1800 pg/mL Performed By: #### L 500.2500, L503.7505, L100.0100 ####[facility] [address] [place], [address] RBC Auto (Bld) [#/Vol]Ordere d By: Yair Ireland on 02-13-2025 RBC (Bld) [#/Vol] 3.45 10*6/uL Low 4.2-5.4 [facility] Serum creatinine measurement (mass/volume)Ordered By: Yair Ireland on 02-13-2025 Creatinine [Mass/Vol] 0.79 mg/dL 0.70-1.20 [facility] Comment on above: Icterus present, Res ults may be affected. Serum glucose measurement (m ass/volume)Ordered By: Yairshauna Ireland on 02-13-2025 Glucose [Mass/Vol] 103 mg/dL High 70-99 [facility] Serum or plasma calcium don urement (mass/volume)Ordered By: Yair Ireland on 02-13-2025 Calcium [Mass/Vol] 9.2 mg/dL 7.6-11.0 [facility] Serum or plasma urea nitroge n measurement (mass/volume)Ordered By: Yair Ireland on 02-13-2025 Urea nitrogen [Mass/Vol] 14 mg/dL 4-19 [facility] Sodium levelOrdered By: diana Shu on 02-13-2025 Sodium [Moles/Vol] 134 mmol/L 133-145 [facility] Target cell detectionOrdered By: Yair Ireland on 02-13-2025 Target cells LM Ql (Bld) 1+ [facility] White blood cell (WBC) count Ordered By: Yair Ireland on 02-13-2025 WBC (Bld) [#/Vol] 8.0 10*3/uL 4.4-11.0 [facility] Absolute lymphocyte countOrd ered By: Blue Lambert on 11-28-2024 Lymphocytes Auto (Unsp spec) [#/Vol] 2.31 10*3/uL 0.83-4.51 [facility] Absolute neutrophil countOrd ered By: Blue Lambert on 11-28-2024 Neutrophils (Bld) [#/Vol] 3.6 10*3/uL 2.0-7.7 [facility] Anion gap in Serum or Plasma Ordered By: Blue Lambert on 11-28-2024 Anion gap [Moles/Vol] 10 mmol/L 5- [facility] Automated lymphocyte count a s percentage of total leukocytesOrdered By: Blue Lambert on 11-28-2024 Lymphocytes/100 WBC Auto (Unsp spec) 31.1 % - [facility] BUN/creatinine ratioOrdered By: Blue Lambert on 11-28-2024 Urea nitrogen/Creatinine [Mass ratio] 17.1 mg/mg - [facility] Basic Metabolic Profile (BMP )on 11-28-2024 BUN/CRE 17.1 RATIO Normal 03-18 [facility] Comment on above: Order Comment: Order Date: 11/28/24Order Info: [id number] - BMPOrder Date: 03/14/24Order Info: [id number] - LIVEROrder Info: [id number] - LIPIDOrder Info: [id number] - MGOrder Info: 3 - TSHOrder Info: 7 - T4F Performed By: #### L 500.2500, L100.0100 ####[facility] [address] [facility] [place], [address] Calcium [Mass/Vol] 9.1 mg/dL Normal 7.6-11.0 [facility] Comment on above: Order Comment: Order Date: 11/28/24Order Info: [id number] - BMPOrder Date: 03/14/24Order Info: [id number] - LIVEROrder Info: [id number] - LIPIDOrder Info: [id number] - MGOrder Info: [id number] - TSHOrder Info: [id number] - T4F Performed By: #### L 500.2500, L100.0100 ####[facility] [address] [place], [address] Chloride [Moles/Vol] 102 mmol/L Normal 98-108 [facility] Comment on above: Order Comment: Order Date: 11/28/24Order Info: [id number] - BMPOrder Date: 03/14/24Order Info: [id number] - LIVEROrder Info: [id number] - LIPIDOrder Info: [id number] - MGOrder Info: [id number] - TSHOrder Info: [id number] - T4F Performed By: #### L 500.2500, L100.0100 ####[facility] [address] [place], [address] CO2 [Moles/Vol] 25.0 mmol/L Normal 21.0-32.0 [facility] Comment on above: Order Comment: Order Date: 11/28/24Order Info: [id number]- - BMPOrder Date: 03/14/24Order Info: [id number] - LIVEROrder Info: [id number] - LIPIDOrder Info: [id number] - MGOrder Info: [id number] - TSHOrder Info: [id number] - T4F Performed By: #### L 500.2500, L100.0100 ####[facility] [address] [place], [address] Creatinine [Mass/Vol] 0.84 mg/dL Normal 0.70-1.20 [facility] Comment on above: Order Comment: Order Date: 11/28/24Order Info: [id number] - BMPOrder Date: 03/14/24Order Info: [id number] - LIVEROrder Info: [id number] - LIPIDOrder Info: [id number] - MGOrder Info: [id number] - TSHOrder Info: [id number] - T4F Result Comment: Icte aron present, Results may be affected. Performed By: #### L 500.2500, L100.0100 ####[facility] [address] [place], [address] GAP 10 Normal 5-15 [facility] Comment on above: Order Comment: Order Date: 11/28/24Order Info: [id number] - BMPOrder Date: 03/14/24Order Info: [id number] - LIVEROrder Info: [id number] - LIPIDOrder Info: [id number] - MGOrder Info: [id number] - TSHOrder Info: [id number] - T4F Performed By: #### L 500.2500, L100.0100 ####[facility] [address] [place], [address] GFR/1.73 sq M.predicted among non-blacks MDRD (S/P/Bld) [Vol rate/Area] 67 mL/min/{1.73_m2} Normal >60 [facility] Comment on above: Order Comment: Order Date: 11/28/24Order Info: 666- - BMPOrder Date: 03/14/24Order Info: [id number] - LIVEROrder Info: [id number] - LIPIDOrder Info: [id number] - MGOrder Info: [id number] - TSHOrder Info: [id number] - T4F Result Comment: mL/m in/1.73m2 CKD-EPI Creatinine Equation (2020) Performed By: #### L 500.2500, L100.0100 ####[facility] [address] [place], [address] Glucose [Mass/Vol] 122 mg/dL High 70-99 [facility] Comment on above: Order Comment: Order Date: 11/28/24Order Info: 666- - BMPOrder Date: 03/14/24Order Info: [id number] - LIVEROrder Info: [id number] - LIPIDOrder Info: [id number] - MGOrder Info: [id number] - TSHOrder Info: [id number] - T4F Performed By: #### L 500.2500, L100.0100 ####[facility] [address] [place], [address] Potassium [Moles/Vol] 4.5 mmol/L Normal 3.3-5.1 [facility] Comment on above: Order Comment: Order Date: 11/28/24Order Info: [id number] - BMPOrder Date: 03/14/24Order Info: 07-1 - LIVEROrder Info: [id number] - LIPIDOrder Info: [id number] - MGOrder Info: [id number] - TSHOrder Info: [id number] - T4F Performed By: #### L 500.2500, L100.0100 ####[facility] [address] [place], [address] Sodium [Moles/Vol] 137 mmol/L Normal 133-145 [facility] Comment on above: Order Comment: Order Date: 11/28/24Order Info: 06- - BMPOrder Date: 03/14/24Order Info: 07-1 - LIVEROrder Info: [id number] - LIPIDOrder Info: [id number] - MGOrder Info: [id number] - TSHOrder Info: [id number] - T4F Performed By: #### L 500.2500, L100.0100 ####[facility] [address] [place], [address] Urea nitrogen [Mass/Vol] 14 mg/dL Normal 4-19 [facility] Comment on above: Order Comment: Order Date: 11/28/24Order Info: [id number] - BMPOrder Date: 03/14/24Order Info: [id number] - LIVEROrder Info: [id number] - LIPIDOrder Info: [id number] - MGOrder Info: [id number] - TSHOrder Info: [id number] - T4F Performed By: #### L 500.2500, L100.0100 ####[facility] [address] [place], [address] Basophil percentageOrdered B y: Blue Lambert on 11-28-2024 Basophils/100 WBC (Bld) 1.2 % High 0-[address] [facility] Bilirubin directOrdered By: Blue Lambert on 11-28-2024 Bilirubin.direct [Mass/Vol] 1.93 mg/dL High 0.00-0.30 [facility] Bilirubin, totalOrdered By: Blue Lambert on 11-28-2024 Bilirubin [Mass/Vol] 7.20 mg/dL High 0.00-1.30 [facility] Blood manual differential co mment interpretation (narrative result)Ordered By: Blue Lambert on 11-28-2024 Manual differential comment Ulises (Bld) [Interp] SCANNED [facility] Blood polychromasia detectio n by light microscopyOrdered By: Blue Lambert on 11-28-2024 Polychromasia LM Ql (Bld) 1+ [facility] CBC W/Diff, Automatedon Anisocytosis Ql (Bld) 2+ Normal [facility] Comment on above: Order Comment: Order Date: 11/28/24Order Info: [id number] - CBCD Performed By: #### L 500.2500, L100.0100 ####[facility] [address] [place], [address] HYPOCHROMASIA 1+ Normal [facility] Comment on above: Order Comment: Order Date: 11/28/24Order Info: [id number] - CBCD Performed By: #### L 500.2500, L100.0100 ####[facility] [address] [place], [address] PLT EST ADEQUATE Normal ADEQ [facility] Comment on above: Order Comment: Order Date: 11/28/24Order Info: [id number] - CBCD Performed By: #### L 500.2500, L100.0100 ####[facility] [address] [place], [address] POLYCHROMASIA 1+ Normal [facility] Comment on above: Order Comment: Order Date: 11/28/24Order Info: [id number] - CBCD Performed By: #### L 500.2500, L100.0100 ####[facility] [address] [place], [address] SMEAR COMMENT SCANNED Normal [facility] Comment on above: Order Comment: Order Date: 11/28/24Order Info: [id number] - CBCD Performed By: #### L 500.2500, L100.0100 ####[facility] [address] [place], [address] Calculated very low density lipoprotein (VLDL) cholesterol measurementOrdered By: Blue Lambert on 11-28-2024 Calculated very low density lipoprotein (VLDL) cholesterol measurement 11 mg/dL 5-40 [facility] Carbon dioxide, total [Moles /volume] in Central venous bloodOrdered By: Blue Lambert on 11-28-2024 CO2 [Moles/Vol] 25.0 mmol/L 21.0-32.0 [facility] Chloride assayOrdered By: Arely Lambert on 11-28-2024 Chloride [Moles/Vol] 102 mmol/L 98-108 [facility] Eosinophil percentageOrdered By: Blue Lambert on 11-28-2024 Eosinophils/100 WBC (Bld) 1.7 % 0-5 [facility] Erythrocyte distribution wid th ratioOrdered By: Blue Lambert on 11-28-2024 Erythrocyte distribution width (RBC) [Ratio] 31.3 % High 11.6-14.6 [facility] Erythrocyte distribution wid th standard deviationOrdered By: Blue Lambert on 11-28-2024 Erythrocyte distribution width (RBC) [Ratio] 113.3 fl High 35.1-43.9 [facility] Glomerular filtration rate ( GFR) estimation/1.73 sq m using serum, plasma, or whole bOrdered By: Blue Lambert on 11-28-2024 GFR/1.73 sq M.predicted among non-blacks MDRD (S/P/Bld) [Vol rate/Area] 67 mL/min/{1.73_m2} >60 [facility] Comment on above: mL/min/1.73m2 CKD-EP I Creatinine Equation (2020) Hematocrit Auto (Bld) [Volum e fraction]Ordered By: Blue Lambert on 11-28-2024 Hematocrit (Bld) [Volume fraction] 35.3 % Low 37-47 [facility] Hemoglobin A1con 11-28-2024 HbA1c (Bld) [Mass fraction] 5.3 % Normal <=5.6 [facility] Comment on above: Order Comment: Order Date: 11/28/24Order Info: [id number] - A1C Result Comment: Norm al < 5.7 % Prediabetic 5.7 - 6.4 % Diabetic >or= 6.5 % Please note range changes. Performed By: #### L 506.1001, L503.6550, L500.3400, L501.5200, L501.9520, L100.0100, L503.6030, L500.2500, L506.0400, L501.9985 #### [facility] [address] [place], [address] Hemoglobin A1c percentageOrd ered By: Blue Lambert on 11-28-2024 HbA1c (Bld) [Mass fraction] 5.3 % <5.7 [facility] Comment on above: Normal < 5.7 % Predi abetic 5.7 - 6.4 % Diabetic >or= 6.5 % Please note range changes. Hemoglobin measurementOrdere d By: Blue Lambert on 11-28-2024 Hemoglobin (Bld) [Mass/Vol] 12.4 g/dL 12.0-15.0 [facility] Hypochromatic red blood cell detectionOrdered By: Blue Lambert on 11-28-2024 Hypochromia Ql (Bld) 1+ [facility] Immature granulocytes/100 WB C Auto (Bld)Ordered By: Blue Lambert on 11-28-2024 Immature granulocytes/100 WBC (Bld) 0.500 % 0.0-0.9 [facility] Comment on above: IG% - Immature Granu locytes (promyelocytes, myelocytes and metamyelocytes) > 1% indicates that a LEFT SHIFT is Present. LDL calc ser/plasOrdered By: Blue Lambert on 11-28-2024 Cholesterol in LDL [Mass/Vol] 12 mg/dL [facility] Comment on above: Usgzcmaqsp=558-310 m g/dL & Higher Hnps=092 mg/dL or greater Laboratory - Chemistry and C hemistry - challengeOrdered By: Blue Lambert on 11-28-2024 AST [Catalytic activity/Vol] 30 U/L <32 [facility] Laboratory - Hematology and Cell countsOrdered By: Blue Lambert on 11-28-2024 Anisocytosis Ql (Bld) 2+ [facility] Lipid Profileon 11-28-2024 CHOL:HDL 1.44 Normal [facility] Comment on above: Order Comment: Order Date: 11/28/24Order Info: [id number] - BMPOrder Date: 03/14/24Order Info: [id number] - LIVEROrder Info: [id number] - LIPIDOrder Info: [id number] - MGOrder Info: 3 - TSHOrder Info: 7 - T4F Performed By: #### L 506.1001, L503.6550, L500.3400, L501.5200, L501.9520, L100.0100, L503.6030, L500.2500, L506.0400, L501.9985 #### [facility] [address] [place], [place], [id number] (241) Cholesterol [Mass/Vol] 76 mg/dL Normal <=200 [facility] Comment on above: Order Comment: Order Date: 11/28/24Order Info: [id number] - BMPOrder Date: 03/14/24Order Info: 07 - LIVEROrder Info: - LIPIDOrder Info: [id number] - MGOrder Info: 3 - TSHOrder Info: 7 - T4F Result Comment: Chol esterol level, Desirable <200 mg/dL Borderline high cholesterol 200-239 mg/dL High cholesterol >=240 mg/dL Recommendations of the NCEP Adult Treatment Panel for the following risk-cutoff thresholds for the [place] population. Performed By: #### L 506.1001, L503.6550, L500.3400, L501.5200, L501.9520, L100.0100, L503.6030, L500.2500, L506.0400, L501.9985 #### [facility] [address] [place], [place], [id number] Cholesterol in HDL [Mass/Vol] 53 mg/dL Normal [facility] Comment on above: Order Comment: Order Date: 11/28/24Order Info: [id number] - BMPOrder Date: 03/14/24Order Info: [id number] - LIVEROrder Info: [id number] - LIPIDOrder Info: [id number] - MGOrder Info: 3 - TSHOrder Info: [id number] - T4F Result Comment: Marilee onal Cholesterol Education Program (NCEP) guidelines: <40 mg/dL: Low HDL-cholesterol (major risk factor for CHD) >= 60 mg/dL: High HDL-cholesterol (negative risk factor for CHD) HDL-cholesterol is affected by a number of factors, e.g. smoking, exercise, hormones, sex and age. Performed By: #### L 506.1001, L503.6550, L500.3400, L501.5200, L501.9520, L100.0100, L503.6030, L500.2500, L506.0400, L501.9985 #### [facility] [address] [place], [place], [phone] (385) Cholesterol in LDL [Mass/Vol] 12 mg/dL Normal [facility] Comment on above: Order Comment: Order Date: 11/28/24Order Info: [id number] - BMPOrder Date: 03/14/24Order Info: [id number] - LIVEROrder Info: [id number] - LIPIDOrder Info: [id number] - MGOrder Info: 3013 - TSHOrder Info: [id number] - T4F Result Comment: Bord gounyy=854-842 mg/dL Higher Lhah=524 mg/dL or greater Performed By: #### L 506.1001, L503.6550, L500.3400, L501.5200, L501.9520, L100.0100, L503.6030, L500.2500, L506.0400, L501.9985 #### [facility] [address] [place], [address] Cholesterol in VLDL [Mass/Vol] 11 mg/dL Normal 5-40 [facility] Comment on above: Order Comment: Order Date: 11/28/24Order Info: 0667- - BMPOrder Date: 03/14/24Order Info: [id number] - LIVEROrder Info: - LIPIDOrder Info: [id number] - MGOrder Info: [id number] - TSHOrder Info: 3023-11 - T4F Performed By: #### L 506.1001, L503.6550, L500.3400, L501.5200, L501.9520, L100.0100, L503.6030, L500.2500, L506.0400, L501.9985 #### [facility] [address] [facility] [place], [place], [phone] Triglyceride [Mass/Vol] 53 mg/dL Normal [facility] Comment on above: Order Comment: Order Date: 11/28/24Order Info: [id number] - BMPOrder Date: 03/14/24Order Info: [id number] - LIVEROrder Info: - LIPIDOrder Info: - MGOrder Info: [id number] - TSHOrder Info: 3023-11 - T4F Result Comment: The drugs N-Acetylcysteine and Metamizole may falsely depress this assay. Normal range: <150 mg/dL Borderline High: 150-199 mg/dL High: 200-499 mg/dL Very High: >500 mg/dL Performed By: #### L 506.1001, L503.6550, L500.3400, L501.5200, L501.9520, L100.0100, L503.6030, L500.2500, L506.0400, L501.9985 #### [facility] [address] [facility] [place], [place], [id number] Liver Profileon 11-28-2024 Albumin [Mass/Vol] 3.9 g/dL Normal 3.4-4.8 [facility] Comment on above: Order Comment: Order Date: 11/28/24Order Info: [id number] - BMPOrder Date: 03/14/24Order Info: [id number] - LIVEROrder Info: - LIPIDOrder Info: [id number] - MGOrder Info: [id number] - TSHOrder Info: 3023-11 - T4F Performed By: #### L 506.1001, L503.6550, L500.3400, L501.5200, L501.9520, L100.0100, L503.6030, L500.2500, L506.0400, L501.9985 #### [facility] [address] [place], [address] ALK PHOS 156 U/L High 35-104 [facility] Comment on above: Order Comment: Order Date: 11/28/24Order Info: 06- - BMPOrder Date: 03/14/24Order Info: 07 - LIVEROrder Info: - LIPIDOrder Info: [id number] - MGOrder Info: [id number] - TSHOrder Info: 3023-11 - T4F Performed By: #### L 506.1001, L503.6550, L500.3400, L501.5200, L501.9520, L100.0100, L503.6030, L500.2500, L506.0400, L501.9985 #### [facility] [address] [place], [address] ALT [Catalytic activity/Vol] 21 U/L Normal <=34 [facility] Comment on above: Order Comment: Order Date: 11/28/24Order Info: 666- - BMPOrder Date: 03/14/24Order Info: [id number] - LIVEROrder Info: - LIPIDOrder Info: [id number] - MGOrder Info: [id number] - TSHOrder Info: 3023-11 - T4F Performed By: #### L 506.1001, L503.6550, L500.3400, L501.5200, L501.9520, L100.0100, L503.6030, L500.2500, L506.0400, L501.9985 #### [facility] [address] [place], [address] AST [Catalytic activity/Vol] 30 U/L Normal <=31 [facility] Comment on above: Order Comment: Order Date: 11/28/24Order Info: [id number] - BMPOrder Date: 03/14/24Order Info: 787-05 - LIVEROrder Info: [id number] - LIPIDOrder Info: [id number] - MGOrder Info: 3015-3 - TSHOrder Info: 3024-7 - T4F Performed By: #### L 506.1001, L503.6550, L500.3400, L501.5200, L501.9520, L100.0100, L503.6030, L500.2500, L506.0400, L501.9985 #### [facility] [address] [place], [address] Bilirubin [Mass/Vol] 7.20 mg/dL High 0.00-1.30 [facility] Comment on above: Order Comment: Order Date: 11/28/24Order Info: [id number] - BMPOrder Date: 03/14/24Order Info: 787-05 - LIVEROrder Info: - LIPIDOrder Info: [id number] - MGOrder Info: 3 - TSHOrder Info: 302-7 - T4F Performed By: #### L 506.1001, L503.6550, L500.3400, L501.5200, L501.9520, L100.0100, L503.6030, L500.2500, L506.0400, L501.9985 #### [facility] [address] [place], [address] Bilirubin.direct [Mass/Vol] 1.93 mg/dL High 0.00-0.30 [facility] Comment on above: Order Comment: Order Date: 11/28/24Order Info: [id number] - BMPOrder Date: 03/14/24Order Info: 787-05 - LIVEROrder Info: [id number] - LIPIDOrder Info: [id number] - MGOrder Info: 3015-3 - TSHOrder Info: 3024-7 - T4F Performed By: #### L 506.1001, L503.6550, L500.3400, L501.5200, L501.9520, L100.0100, L503.6030, L500.2500, L506.0400, L501.9985 #### [facility] [address] [place] [place], [address] Globulin (S) [Mass/Vol] 1.7 g/dL Low 2.2-4.[address] [facility] Comment on above: Order Comment: Order Date: 11/28/24Order Info: 0667- - BMPOrder Date: 03/14/24Order Info: 07- - LIVEROrder Info: [id number] - LIPIDOrder Info: [id number] - MGOrder Info: 3 - TSHOrder Info: 7 - T4F Performed By: #### L 506.1001, L503.6550, L500.3400, L501.5200, L501.9520, L100.0100, L503.6030, L500.2500, L506.0400, L501.9985 #### [facility] [address] [place], [address] T PROT 5.6 g/dL Low 5.9-8.4 [facility] Comment on above: Order Comment: Order Date: 11/28/24Order Info: 0667- - BMPOrder Date: 03/14/24Order Info: 07 - LIVEROrder Info: - LIPIDOrder Info: [id number] - MGOrder Info: 3 - TSHOrder Info: 7 - T4F Performed By: #### L 506.1001, L503.6550, L500.3400, L501.5200, L501.9520, L100.0100, L503.6030, L500.2500, L506.0400, L501.9985 #### [facility] [address] [place], [address] MCV (mean corpuscular volume ) determinationOrdered By: Blue Lambret on 11-28-2024 MCV (RBC) [Entitic vol] 102.9 fL High 81-[address] [facility] Magnesiumon 11-28-2024 Magnesium [Mass/Vol] 2.3 mg/dL High 1.5-2.2 [facility] Comment on above: Order Comment: Order Date: 11/28/24Order Info: [id number] - BMPOrder Date: 03/14/24Order Info: [id number] - LIVEROrder Info: [id number] - LIPIDOrder Info: [id number] - MGOrder Info: 3016-3 - TSHOrder Info: 3024-7 - T4F Performed By: #### L 506.1001, L503.6550, L500.3400, L501.5200, L501.9520, L100.0100, L503.6030, L500.2500, L506.0400, L501.9985 #### [facility] [address] [place] [address], [id number] Magnesium measurement (mass/ volume)Ordered By: Blue Lambert on 11-28-2024 Magnesium (Unsp spec) [Mass/Vol] 2.3 mg/dL High 1.5-2.2 [facility] Mean corpuscular hemoglobin (MCH) determinationOrdered By: Blue Lambert on 11-28-2024 MCH (RBC) [Entitic mass] 36.2 pg High 27.0-32.0 [facility] Mean corpuscular hemoglobin concentration (MCHC) determinationOrdered By: Blue Lambert on 11-28-2024 MCHC (RBC) [Mass/Vol] 35.1 g/dL 32-36 [facility] Mean platelet volume determi nationOrdered By: Blue Lambert on 11-28-2024 Platelet mean volume (Bld) [Entitic vol] 11.0 fL 6.2-12.0 [facility] Monocyte percentageOrdered B y: Blue Lambert on 11-28-2024 Monocytes/100 WBC (Bld) 17.0 % High 0-[address] [facility] Neutrophil percentageOrdered By: Blue Lambert on 11-28-2024 Neutrophils/100 WBC (Bld) 48.5 % 47-70 [facility] Nucleated red blood cell per centageOrdered By: Blue Lambert on 11-28-2024 Nucleated RBC/100 WBC (Bld) [Ratio] 0.9 % 0-5 [facility] Platelet countOrdered By: Arely Lambert on 11-28-2024 Platelets (Bld) [#/Vol] 197 10*3/uL 150-450 [facility] Platelet estimateOrdered By: Blue Lambert on 11-28-2024 Platelets LM Ql (Bld) ADEQUATE ADEQ [facility] Potassium measurement (mass/ volume)Ordered By: Blue Lambert on 11-28-2024 Potassium (Unsp spec) [Mass/Vol] 4.5 mmol/L 3.3-5.1 [facility] RBC Auto (Bld) [#/Vol]Ordere d By: Blue Lambert on 11-28-2024 RBC (Bld) [#/Vol] 3.43 10*6/uL Low 4.2-5.4 [facility] Screening total cholesterol/ high density lipoprotein (HDL) cholesterol ratioOrdered By: Blue Lambert on 11-28-2024 Cholesterol.total/Lucinda sterol in HDL [Mass ratio] 1.44 {ratio} [facility] Serum creatinine measurement (mass/volume)Ordered By: Blue Lambert on 11-28-2024 Creatinine [Mass/Vol] 0.84 mg/dL 0.70-1.20 [facility] Comment on above: Icterus present, Res ults may be affected. Serum globulin measurementOr dered By: Blue Lambert on 11-28-2024 Globulin (S) [Mass/Vol] 1.7 g/dL Low 2.2-4.[address] [facility] Serum glucose measurement (m ass/volume)Ordered By: Blue Lambert on 11-28-2024 Glucose [Mass/Vol] 122 mg/dL High 70-99 [facility] Serum or plasma alanine guajardo otransferase (ALT) measurementOrdered By: Blue Lambert on 11-28-2024 ALT [Catalytic activity/Vol] 21 U/L <35 [facility] Serum or plasma albumin don urement (mass/volume)Ordered By: Blue Lambert on 11-28-2024 Albumin [Mass/Vol] 3.9 g/dL 3.4-4.8 [facility] Serum or plasma alkaline pamela sphatase measurementOrdered By: Blue Lambert on 11-28-2024 ALP [Catalytic activity/Vol] 156 U/L High 35-104 [facility] Serum or plasma calcium don urement (mass/volume)Ordered By: Blue Lambert on 11-28-2024 Calcium [Mass/Vol] 9.1 mg/dL 7.6-11.0 [facility] Serum or plasma cholesterol in HDL measurement (mass/volume)Ordered By: Blue Lambert on 11-28-2024 Cholesterol in HDL [Mass/Vol] 53 mg/dL >40 [facility] Comment on above: National Cholesterol Education Program (NCEP) guidelines:<40 mg/dL: Low HDL-cholesterol (major risk factor for CHD)>= 60 mg/dL: High HDL-cholesterol (negative risk factor for CHD)HDL-cholesterol is affected by a number of factors, e.g. smoking, exercise, hormones, sex and age. Serum or plasma cholesterol measurement (mass/volume)Ordered By: Blue Lambert on 11-28-2024 Cholesterol [Mass/Vol] 76 mg/dL <201 [facility] Comment on above: Cholesterol level, D esirable <200 mg/dLBorderline high cholesterol 200-239 mg/dLHigh cholesterol >=240 mg/dLRecommendations of the NCEP Adult Treatment Panel for the following risk-cutoff thresholds for the [place] population. Serum or plasma urea nitroge n measurement (mass/volume)Ordered By: Blue Lambert on 11-28-2024 Urea nitrogen [Mass/Vol] 14 mg/dL 4-19 [facility] Sodium levelOrdered By: Blue Lambert on 11-28-2024 Sodium [Moles/Vol] 137 mmol/L 133-145 [facility] T4 Free Directon 11-28-2024 T4 FREE DIRECT 1.30 ng/dL Normal 0.76-1.46 [facility] Comment on above: Order Comment: Order Date: 11/28/24Order Info: [id number] - BMPOrder Date: 03/14/24Order Info: [id number] - LIVEROrder Info: [id number] - LIPIDOrder Info: [id number] - MGOrder Info: [id number] - TSHOrder Info: 3024-7 - T4F Performed By: #### L 506.1001, L503.6550, L500.3400, L501.5200, L501.9520, L100.0100, L503.6030, L500.2500, L506.0400, L501.9985 #### [facility] [address] [place], [place], [id number] T4 freeOrdered By: Blue vang on 11-28-2024 Free T4 [Mass/Vol] 1.30 ng/dL 0.76-1.46 [facility] TSH DL <= 0.005 mIU/L QnOrde red By: Blue Lambert on 11-28-2024 TSH Qn 5.220 uIU/mL High 0.300-4.200 [facility] Thyroid Stim Hormone (TSH)on 11-28-2024 TSH 5.220 uIU/mL High 0.300-4.200 [facility] Comment on above: Order Comment: Order Date: 11/28/24Order Info: [id number] - BMPOrder Date: 03/14/24Order Info: [id number] - LIVEROrder Info: [id number] - LIPIDOrder Info: [id number] - MGOrder Info: [id number] - TSHOrder Info: 3024-7 - T4F Performed By: #### L 506.1001, L503.6550, L500.3400, L501.5200, L501.9520, L100.0100, L503.6030, L500.2500, L506.0400, L501.9985 #### [facility] [address] [place], [place], [id number] Total proteinOrdered By: Rinku Lambert on 11-28-2024 Protein [Mass/Vol] 5.6 g/dL Low 5.9-8.4 [facility] Triglycerides measurementOrd ered By: Blue Lambert on 11-28-2024 Triglyceride [Mass/Vol] 53 mg/dL <[address] [facility] Comment on above: The drugs N-Acetylcy steine and Metamizole may falsely depress this assay. Normal range: <150 mg/dLBorderline High: 150-199 mg/dLHigh: 200-499 mg/dLVery High: >500 mg/dL Vitamin B12on 11-28-2024 Cobalamin (Vitamin B12) [Mass/Vol] 1966 pg/mL High 180-914 [facility] Comment on above: Order Comment: Order Date: 11/28/24Order Info: 06- - BMPOrder Date: 03/14/24Order Info: 787- - LIVEROrder Info: [id number] - LIPIDOrder Info: [id number] - MGOrder Info: 3 - TSHOrder Info: [id number] - T4F Performed By: #### L 503.0106, L506.1001 ####[facility] [address] [place], [place], [id number] Vitamin B12 ser/plasOrdered By: Blue Lambert on 11-28-2024 Cobalamin (Vitamin B12) [Mass/Vol] 1966 pg/mL High 180-914 [facility] Vitamin D,25 Hydroxyon 11-28 Vitamin D 25-OH 37.3 ng/mL Normal 30-100 [facility] Comment on above: Order Comment: Order Date: 11/28/24Order Info: 0667- - BMPOrder Date: 03/14/24Order Info: 787-05 - LIVEROrder Info: - LIPIDOrder Info: - MGOrder Info: [id number] - TSHOrder Info: 3023-11 - T4F Result Comment: Viviana min D Status Deficiency: <20 ng/mL (50nmol/L) Insufficiency: 20-30 ng/mL (50-75 nmol/L) Sufficiency: 30-100 ng/mL (75-250 nmol/L) Toxicity: >100 ng/mL (>250 nmol/L) Performed By: #### L 503.0106, L506.1001 ####[facility] [address] [place], [place], [address] White blood cell (WBC) count Ordered By: Blue Lambert on 11-28-2024 WBC (Bld) [#/Vol] 7.4 10*3/uL 4.4-11.0 [facility] Special Stain Group IIon Special Stain Group II -------- Patient Age/Sex Location Account Attending Physician ANANTH BANDA 89/F LABSPEC [id number] Dr. Rainer [place] MD Specimen: [id number] Received: 11/26/24 Status: LUZMA Morris Num: [id number] Spec Type: Fluid Subm Dr: Dr. Rainer [place] MD HEADER OPERATION: Fine needle aspiration of right thyroid nodule PRE-OP DIAGNOSIS: Right thyroid nodule TISSUE SUBMITTED: A- Right thyroid nodule for cytology DIAGNOSIS CYTOLOGY A. Thyroid, right, fine needle aspiration: Benign, see comment. COMMENT Cytologic examination shows a low cellularity specimen composed of bland appearing follicular cells (approximately 7 groups) in a background of blood. CYTOLOGY STUDY Slides are reviewed. CYTOLOGY GROSS A. Received is 30 ml of opaque cloudy cytolyt and 4 smears labeled with the patient's name and and designated per the requisition as Right thyroid nodule. Submitted for cytology and cytospin. Mr 11/26/2024 CPT: 36933,30409 Signed (signature on file) Dr. Erica Llanos MD 12/07/24 0754 Normal [facility] Comment on above: Performed By: #### L 506.1001, L503.6550, L500.3400, L501.5200, L501.9520, L100.0100, L503.6030, L500.2500, L506.0400, L501.9985 #### [facility] [address] [place], [place], [address] Surgery Visit Reporton 11-26 Surgery Visit Report [facility] [address] [place], [place] [address] OFFICE VISIT Date of Service: 11/26/24 MR#: [id number] Acct: [id number] Name: ANANTH BANDA TAYLOR Rep #: [id number] : 1935 Provider: Dr. Rainer rubin MD Age/Sex: 89/F Location: [facility] Status: Signed Intake Vital Signs 11/13/24 07:08 11/26/24 09:14 Height 5 ft 8 in 5 ft 8 in Weight: 168 lb 173 lb BMI 25.5 26.3 BP 144/78 H 155/81 H Blood Pressure Location Lt brachial Rt brachial Position Sitting Sitting Respiration 18 17 Pulse 77 80 Pulse Source Monitor Monitor Pulse Oximetry (%) 97 94 Oxygen Delivery Method room air Intake Visit Reasons: THYROID U/S RESULTS Chief Complaint: Thyroid F/U US 10/28 Is patient in pain?: No Allergies amoxicillin (From Trimox) Allergy (Severe, Verified 11/26/24 09:15) throat swelling lisinopril Allergy (Severe, Verified 11/26/24 09:15) Angioedema amlodipine Adverse Reaction (Mild, Verified 11/26/24 09:15) swelling ciprofloxacin (From Cipro) Adverse Reaction (Verified 11/26/24 09:15) GI upset diphenhydramine (From Benadryl) Adverse Reaction (Verified 11/26/24 09:15) jittery Medications ???Medication ???Instructions ???Recorded ???Confirmed ???Type calcium 500 mg-vitamin D3 500 1 tab PO DAILY supplement 11/13/20 11/26/24 History unit-vitamin K 40 mcg chewable tablet (Viactiv) metoprolol succinate 100 mg 100 mg PO DAILY blood pressure 06/1911/26/24 History tablet,extended release 24 hr vitamins A,C,B-cdch-uerykz 4,296 1 cap PO DAILY supplement 07/06/22 11/26/24 History mcg-226 mg-90 mg capsule (PreserVision AREDS) cholecalciferol (vitamin D3) 125 125 mcg PO Q OTHER DAY vitamin 11/26/24 History mcg (5,000 unit) tablet potassium chloride 20 mEq 20 meq PO DAILY #30 tabs 03/03/24 11/26/24 Rx tablet,extended release cyanocobalamin (vitamin B-12) 500 mcg PO QDAY vitamin 03/06/24 0 11/26/24 History 1,000 mcg tablet ferrous sulfate 325 mg (65 mg 325 mg PO QDAY 03/06/24 11/26/24 H istory iron) tablet furosemide 40 mg tablet (Lasix) 40 mg PO BID diuretic #180 tabs 11/26/24 Rx ascorbic acid (vitamin C) 500 mg 500 mg PO DAILY 08/14/24 11/26/24 History capsule spironolactone 50 mg tablet 50 mg PO DAILY diuretic #90 tabs 0 08/15/24 11/26/24 Rx digoxin 125 mcg (0.125 mg) tablet 125 mcg PO QDAY #90 tabs 10/02/24 11/26/24 Rx empagliflozin 10 mg tablet 10 mg PO QAM #90 tabs 10/02/24 Rx (Jardiance) Have you fallen in the past year?: No PFSH Medical History Atrial fibrillation Anemia Gilbert syndrome Hemolytic anemia Elevated bilirubin Bilateral lower extremity edema Acquired atrial septal defect (ASD) Multiple thyroid nodules Osteopenia Normocytic anemia Pericardial effusion Non-rheumatic tricuspid valve insufficiency Non-rheumatic mitral regurgitation Pseudophakia Essential hypertension Bee sting reaction Bronchitis Fatigue Cystic thyroid nodule Hemorrhoid Murmur, heart Surgical History History of cholecystectomy History of tubal ligation History of tonsillectomy S/P colonoscopy Family History Mother Diabetes Father Myocardial infarction CAD (coronary artery disease) Social History current occupational status: retired Smoking Status: Never smoker alcohol intake: current details: glass wine daily substance use type: does not use caffeine: Yes Type: coffee Number of servings: 1 HPI HPI HPI: Patient is a 89-year-old female who presents for surveillance of thyroid nodularity. They are referred for surgical consultation from Dr. Lambert. Patient was previously under the care of Dr. Agustin Epstein for this purpose. They state they only underwent biopsy of a right sided nodule once during their surveillance together and were last advised they should follow up in 5 years- which is what has occasioned today's visit They do not experience difficulty with swallowing. They do not complain of a new cough. They do not appreciate new voice changes. Additionally, their weight has been changing and there is a history of recent fatigue. Mrs. Banda shares that she was hospitalized February of 2024 for what she reports as having "high hemoglobin", however, she states she required blood transfusion. Mrs. Banda has a history of Gilbert's syndrome and displays evidence of jaundice but she states that this is not worse than usual and has been worked up. Previous work-up has included thyroid ultrasound. This study was performed on 10/29/2024 and showed a right (more content not included)... Normal [facility] Anion gap in Serum or Plasma Ordered By: Yair Ireland on 11-13-2024 Anion gap [Moles/Vol] 11 mmol/L 5-15 [facility] BUN/creatinine ratioOrdered By: Yair Ireland on 11-13-2024 Urea nitrogen/Creatinine [Mass ratio] 17.3 mg/mg - [facility] Basic Metabolic Profile (BMP )on 11-13-2024 BUN/CRE 17.3 RATIO Normal - [facility] Comment on above: Performed By: #### L 500.2500 ####[facility] [address] [place], [address] Calcium [Mass/Vol] 9.1 mg/dL Normal 7.6-11.0 [facility] Comment on above: Performed By: #### L 500.2500 ####[facility] [address] [place], [address] Chloride [Moles/Vol] 100 mmol/L Normal 98-108 [facility] Comment on above: Performed By: #### L 500.2500 ####[facility] [address] [place], [address] CO2 [Moles/Vol] 26.8 mmol/L Normal 21.0-32.0 [facility] Comment on above: Performed By: #### L 500.2500 ####[facility] [address] [place], [address] Creatinine [Mass/Vol] 0.87 mg/dL Normal 0.70-1.20 [facility] Comment on above: Result Comment: Icte aron present, Results may be affected. Performed By: #### L 500.2500 ####[facility] [address] [place], [address] GAP 11 Normal 5-15 [facility] Comment on above: Performed By: #### L 500.2500 ####[facility] [address] [place], [address] GFR/1.73 sq M.predicted among non-blacks MDRD (S/P/Bld) [Vol rate/Area] 64 mL/min/{1.73_m2} Normal >60 [facility] Comment on above: Result Comment: mL/m in/1.73m2 CKD-EPI Creatinine Equation (2020) Performed By: #### L 500.2500 ####[facility] [address] [place], [address] Glucose [Mass/Vol] 191 mg/dL High 70-99 [facility] Comment on above: Performed By: #### L 500.2500 ####[facility] [address] [place], [address] Potassium [Moles/Vol] 4.1 mmol/L Normal 3.3-5.1 [facility] Comment on above: Performed By: #### L 500.2500 ####[facility] [address] [place], [address] Sodium [Moles/Vol] 137 mmol/L Normal 133-145 [facility] Comment on above: Performed By: #### L 500.2500 ####[facility] [address] [place], [address] Urea nitrogen [Mass/Vol] 15 mg/dL Normal 4-19 [facility] Comment on above: Performed By: #### L 500.2500 ####[facility] [address] [place], [address] Carbon dioxide, total [Moles /volume] in Central venous bloodOrdered By: Yair Ireland on 11-13-2024 CO2 [Moles/Vol] 26.8 mmol/L 21.0-32.0 [facility] Cardiology Visit Reporton Cardiology Visit Report [facility] [address] [place] [address] OFFICE VISIT Date of Service: 11/13/24 MR#: [id number] Acct: [id number] Name: ANANTH BANDA Rep #: [id number] : 1935 Provider: CHRISTINA Pike Age/Sex: 89/F Location: [facility] Status: Signed HPI HPI History of Present Illness Details: Ananth Banda is an 88-year-old female who presents here today for cardiovascular follow-up visit.??? She has a history of atrial fibrillation, hypertension, intra-atrial shunt, PFO versus ASD, mitral regurgitation.??? She did undergo a cardioversion. Unfortunately she did not maintain SR. Patient was hospitalized 02/27 - 03/03/2024 for acute anemia and acute on chronic HFpEF. Patient was treated with IV Lasix and transition to p.o. Patient was then seen in the office 03/06/2024 in which patient had concerns of lower extremity edema. At that time, plan consisted of discontinuing Eliquis given the anemia and increasing Lasix to 40 mg twice daily. Patient initially had good response to this treatment with weight loss and significant improvement in edema. However, mid June, patient noticed increasing lower extremity edema and abdominal bloating along with weight gain. Patient was seen in office 08/14/2024 and patient was recommended to add digoxin and Jardiance. She had initiated these medications with improvement in her symptoms; however, ran out of her medication and edema reoccurred. She followed up in August and was recommended to refill these medications. Upon evaluation in office today, patient and daughter report some improvement in her edema along with weight loss; however, lower extremity edema remains. Patient reports she continues to become short of breath with activity. She is able to lie down in her bed at night with 1 pillow without experiencing dyspnea; however, she had a thyroid ultrasound done a few weeks ago and did experience dyspnea upon laying on the exam table. She reports ongoing poor energy in which she finds herself needing to take a lot of naps for a few months now. Her blood pressure at home has been running 120???140/70???80. Further ROS below. Intake Vital Signs 09/24/24 07:33 11/13/24 07:08 Height 5 ft 8 in 5 ft 8 in Weight: 179 lb 168 lb BMI 27.2 25.5 BP 121/82 H 144/78 H Blood Pressure Location Lt brachial Lt brachial Position Sitting Sitting Respiration 18 18 Pulse 86 77 Pulse Source Monitor Monitor Pulse Oximetry (%) 97 97 Intake Visit Reasons: 8 WK FU Instrument Installer Required: No Is patient in pain?: No Allergies amoxicillin (From Trimox) Allergy (Severe, Verified 11/13/24 11:12) throat swelling lisinopril Allergy (Severe, Verified 11/13/24 11:12) Angioedema amlodipine Adverse Reaction (Mild, Verified 11/13/24 11:12) swelling ciprofloxacin (From Cipro) Adverse Reaction (Verified 11/13/24 11:12) GI upset diphenhydramine (From Benadryl) Adverse Reaction (Verified 11/13/24 11:12) jittery Medications ???Medication ???Instructions ???Recorded ???Confirmed ???Type calcium 500 mg-vitamin D3 500 1 tab PO DAILY supplement 11/13/20 11/13/24 History unit-vitamin K 40 mcg chewable tablet (Viactiv) metoprolol succinate 100 mg 100 mg PO DAILY blood pressure 06/1911/13/24 History tablet,extended release 24 hr vitamins A,C,K-puze-himgpk 4,296 1 cap PO DAILY supplement 07/06/22 11/13/24 History mcg-226 mg-90 mg capsule (PreserVision AREDS) cholecalciferol (vitamin D3) 125 125 mcg PO Q OTHER DAY vitamin 11/13/24 History mcg (5,000 unit) tablet potassium chloride 20 mEq 20 meq PO DAILY #30 tabs 03/03/24 11/13/24 Rx tablet,extended release cyanocobalamin (vitamin B-12) 500 mcg PO QDAY vitamin 03/06/24 0 11/13/24 History 1,000 mcg tablet ferrous sulfate 325 mg (65 mg 325 mg PO QDAY 03/06/24 11/13/24 H istory iron) tablet furosemide 40 mg tablet (Lasix) 40 mg PO BID diuretic #180 tabs 11/13/24 Rx ascorbic acid (vitamin C) 500 mg 500 mg PO DAILY 08/14/24 11/13/24 History capsule spironolactone 50 mg tablet 50 mg PO DAILY diuretic #90 tabs 0 08/15/24 11/13/24 Rx digoxin 125 mcg (0.125 mg) tablet 125 mcg PO QDAY #90 tabs 10/02/24 11/13/24 Rx empagliflozin 10 mg tablet 10 mg PO QAM #90 tabs 10/02/24 Rx (Jardiance) Ejection fraction %: 55 Have you fallen in the past year?: No [facility] Medical History Atrial fibrillation Anemia Gilbert syndrome Hemolytic anemia Elevated bilirubin Bilateral lower extremity edema Acquired atrial septal defect (ASD) Multiple thyroid nodules Osteopenia Normocytic anemia Pericardial effusion Non-rheumatic tricuspid valve insufficiency Non-rheumatic mitral regurgitation Pseudophakia Es (more content not included)... Normal [facility] Chloride assayOrdered By: Ping Ireland on 11-13-2024 Chloride [Moles/Vol] 100 mmol/L 98-108 [facility] Glomerular filtration rate ( GFR) estimation/1.73 sq m using serum, plasma, or whole bOrdered By: Yair Ireland on 11-13-2024 GFR/1.73 sq M.predicted among non-blacks MDRD (S/P/Bld) [Vol rate/Area] 64 mL/min/{1.73_m2} >60 [facility] Comment on above: mL/min/1.73m2 CKD-EP I Creatinine Equation (2020) Potassium measurement (mass/ volume)Ordered By: Yair Ireland on 11-13-2024 Potassium (Unsp spec) [Mass/Vol] 4.1 mmol/L 3.3-5.1 [facility] Serum creatinine measurement (mass/volume)Ordered By: Yair Ireland on 11-13-2024 Creatinine [Mass/Vol] 0.87 mg/dL 0.70-1.20 [facility] Comment on above: Icterus present, Res ults may be affected. Serum glucose measurement (m ass/volume)Ordered By: Yair Ireland on 11-13-2024 Glucose [Mass/Vol] 191 mg/dL High 70-99 [facility] Serum or plasma calcium don urement (mass/volume)Ordered By: Yair Demiter on 11-13-2024 Calcium [Mass/Vol] 9.1 mg/dL 7.6-11.0 [facility] Serum or plasma urea nitroge n measurement (mass/volume)Ordered By: Yair Demiter on 11-13-2024 Urea nitrogen [Mass/Vol] 15 mg/dL 4-19 [facility] Sodium levelOrdered By: Skyl er Demiter on 11-13-2024 Sodium [Moles/Vol] 137 mmol/L 133-145 [facility] Thyroidon 10-29-2024 Thyroid [facility] [address] [place], [place] [address] Thyroid MR#: [id number] Acct: [id number] Name: ANANTH BANDA Rep #: [id number] : 1935 F 89 From: Milton shaw MD PCP: Dr. Blue Lambert MD Status: REG CLI Study: Thyroid Date of Exam: 10/29/24 Exam# [id number] Ordering Dr: Rainer Weston MD PROCEDURE: THYROID 10/29/2024 REASON FOR EXAM: THYROID NODULES TECHNIQUE: High-frequency thyroid ultrasound, including grayscale and color-flow images. REFERENCE LINKS: TI-RADS Chart: [email or web address] -rads TI-RADS Calculator Tool with Reference Images: [email or web address]/rad iology-calculators/body-i maging/tirads-calculator/ COMPARISON: 10/28/2021 FINDINGS: Right thyroid lobe size: [...] no more than 2 nodules. Reading Location: [place] [address] CC: Dr. Blue Lambert MD; Dr. Rainer Weston MD Branch Library Clerk: Signed Normal [facility] Cardiology Visit Reporton Cardiology Visit Report [facility] [address] [place], [place] [address] OFFICE VISIT Date of Service: 09/25/24 MR#: [id number] Acct: [id number] Name: ANANTH BANDA TAYLOR Rep #: [id number] : 1935 Provider: CHRISTINA Pike Age/Sex: 89/F Location: [facility] Status: Signed HPI HPI History of Present Illness Details: Ananth Banda is an 88-year-old female who presents here today for cardiovascular follow-up visit.??? She has a history of atrial fibrillation, hypertension, intra-atrial shunt, PFO versus ASD, mitral regurgitation.??? She did undergo a cardioversion. Unfortunately she did not maintain SR. Patient was hospitalized 02/27 - 03/03/2024 for acute anemia and acute on chronic HFpEF. Patient was treated with IV Lasix and transition to p.o. Patient was then seen in the office 03/06/2024 in which patient had concerns of lower extremity edema. At that time, plan consisted of discontinuing Eliquis given the anemia and increasing Lasix to 40 mg twice daily. Patient initially had good response to this treatment with weight loss and significant improvement in edema. However, mid June, patient noticed increasing lower extremity edema and abdominal bloating along with weight gain. Patient was seen in office 08/14/2024 and patient was recommended to add digoxin and Jardiance. Upon evaluation in office today, patient and daughter report that patient initially saw significant improvement in symptoms, lost weight, and felt better until running out of her medications approximately 1 week ago. Daughter reports that the pharmacy did not have refills. Over the last 1 week, patient has noticed weight gain and increase in abdominal and lower extremity edema. Patient reports her shortness of breath has worsened over the last 1 week. She continues to have lower energy. Further ROS below. Intake Vital Signs 08/14/24 13:25 09/24/24 07:33 Height 5 ft 8 in 5 ft 8 in Weight: 179 lb BMI 27.2 BP 121/82 H Blood Pressure Location Lt brachial Position Sitting Respiration 18 Pulse 86 Pulse Source Monitor Pulse Oximetry (%) 97 Intake Visit Reasons: 6 WK FU Instrument Installer Required: No Is patient in pain?: No Allergies amoxicillin (From Trimox) Allergy (Severe, Verified 09/25/24 12:51) throat swelling lisinopril Allergy (Severe, Verified 09/25/24 12:51) Angioedema amlodipine Adverse Reaction (Mild, Verified 09/25/24 12:51) swelling ciprofloxacin (From Cipro) Adverse Reaction (Verified 09/25/24 12:51) GI upset diphenhydramine (From Benadryl) Adverse Reaction (Verified 09/25/24 12:51) jittery Medications ???Medication ???Instructions ???Recorded ???Confirmed ???Type calcium 500 mg-vitamin D3 500 1 tab PO DAILY supplement 11/13/20 09/25/24 History unit-vitamin K 40 mcg chewable tablet (Viactiv) metoprolol succinate 100 mg 100 mg PO DAILY blood pressure 06/1909/25/24 History tablet,extended release 24 hr vitamins A,C,F-cmic-oqcwfz 4,296 1 cap PO DAILY supplement 07/06/22 09/25/24 History mcg-226 mg-90 mg capsule (PreserVision AREDS) cholecalciferol (vitamin D3) 125 125 mcg PO Q OTHER DAY vitamin 09/25/24 History mcg (5,000 unit) tablet potassium chloride 20 mEq 20 meq PO DAILY #30 tabs 03/03/24 09/25/24 Rx tablet,extended release cyanocobalamin (vitamin B-12) 500 mcg PO QDAY vitamin 03/06/24 0 09/25/24 History 1,000 mcg tablet ferrous sulfate 325 mg (65 mg 325 mg PO QDAY 03/06/24 09/25/24 H istory iron) tablet furosemide 40 mg tablet (Lasix) 40 mg PO BID diuretic #180 tabs 09/25/24 Rx ascorbic acid (vitamin C) 500 mg 500 mg PO DAILY 08/14/24 09/25/24 History capsule spironolactone 50 mg tablet 50 mg PO DAILY diuretic #90 tabs 0 08/15/24 09/25/24 Rx digoxin 125 mcg (0.125 mg) tablet 125 mcg PO QDAY #30 tabs 09/25/24 09/25/24 Rx empagliflozin 10 mg tablet 10 mg PO QAM #30 tabs 09/25/24 Rx (Jardiance) Ejection fraction %: 55 Have you fallen in the past year?: No Nurse's Note: Patient has not been taking jardiance and digoxin ran out of both medications because there was no refills on bottle [facility] Medical History Atrial fibrillation Anemia Gilbert syndrome Hemolytic anemia Elevated bilirubin Bilateral lower extremity edema Acquired atrial septal defect (ASD) Multiple thyroid nodules Osteopenia Normocytic anemia Pericardial effusion Non-rheumatic tricuspid valve insufficiency Non-rheumatic mitral regurgitation Pseudophakia Essential hypertension Bee sting reaction Bronchitis Fatigue Cystic thyroid nodule Hemorrhoid Murmur, heart Surgical History History of cholecystectomy History of tubal (more content not included)... Normal [facility] Absolute lymphocyte countOrd ered By: Blue Lambert on 09-12-2024 Lymphocytes Auto (Unsp spec) [#/Vol] 2.62 10*3/uL 0.83-4.51 [facility] Absolute neutrophil countOrd ered By: Blue Lambert on 09-12-2024 Neutrophils (Bld) [#/Vol] 3.7 10*3/uL 2.0-7.7 [facility] Anion gap in Serum or Plasma Ordered By: Blue Lambert on 09-12-2024 Anion gap [Moles/Vol] 9 mmol/L - [facility] Automated lymphocyte count a s percentage of total leukocytesOrdered By: Blue Lambert on 09-12-2024 Lymphocytes/100 WBC Auto (Unsp spec) 33.4 % [facility] BUN/creatinine ratioOrdered By: Blue Lambert on 09-12-2024 Urea nitrogen/Creatinine [Mass ratio] 16.2 mg/mg - [facility] Basic Metabolic Profile (BMP )on 09-12-2024 BUN/CRE 16.2 RATIO Normal 03-18 [facility] Comment on above: Performed By: #### L 506.1001, L503.6550, L500.3400, L501.5200, L501.9520, L100.0100, L503.6030, L500.2500, L506.0400, L501.9985 #### [facility] [address] [facility] [address] [place], [address] Calcium [Mass/Vol] 9.0 mg/dL Normal 7.6-11.0 [facility] Comment on above: Performed By: #### L 506.1001, L503.6550, L500.3400, L501.5200, L501.9520, L100.0100, L503.6030, L500.2500, L506.0400, L501.9985 #### [facility] [address] [place], [address] Chloride [Moles/Vol] 103 mmol/L Normal 98-108 [facility] Comment on above: Performed By: #### L 506.1001, L503.6550, L500.3400, L501.5200, L501.9520, L100.0100, L503.6030, L500.2500, L506.0400, L501.9985 #### [facility] [address] [place], [address] CO2 [Moles/Vol] 25.6 mmol/L Normal 21.0-32.0 [facility] Comment on above: Performed By: #### L 506.1001, L503.6550, L500.3400, L501.5200, L501.9520, L100.0100, L503.6030, L500.2500, L506.0400, L501.9985 #### [facility] [address] [place], [address] Creatinine [Mass/Vol] 0.90 mg/dL Normal 0.70-1.20 [facility] Comment on above: Result Comment: Icte aron present, Results may be affected. Performed By: #### L 506.1001, L503.6550, L500.3400, L501.5200, L501.9520, L100.0100, L503.6030, L500.2500, L506.0400, L501.9985 #### [facility] [address] [place], [address] GAP 9 Normal 5-15 [facility] Comment on above: Performed By: #### L 506.1001, L503.6550, L500.3400, L501.5200, L501.9520, L100.0100, L503.6030, L500.2500, L506.0400, L501.9985 #### [facility] [address] [place], [address] GFR/1.73 sq M.predicted among non-blacks MDRD (S/P/Bld) [Vol rate/Area] 62 mL/min/{1.73_m2} Normal >60 [facility] Comment on above: Result Comment: mL/m in/1.73m2 CKD-EPI Creatinine Equation (2020) Performed By: #### L 506.1001, L503.6550, L500.3400, L501.5200, L501.9520, L100.0100, L503.6030, L500.2500, L506.0400, L501.9985 #### [facility] [address] [place], [address] Glucose [Mass/Vol] 128 mg/dL High 70-99 [facility] Comment on above: Performed By: #### L 506.1001, L503.6550, L500.3400, L501.5200, L501.9520, L100.0100, L503.6030, L500.2500, L506.0400, L501.9985 #### [facility] [address] [place], [address] Potassium [Moles/Vol] 4.2 mmol/L Normal 3.3-5.1 [facility] Comment on above: Performed By: #### L 506.1001, L503.6550, L500.3400, L501.5200, L501.9520, L100.0100, L503.6030, L500.2500, L506.0400, L501.9985 #### [facility] [address] [place], [address] Sodium [Moles/Vol] 138 mmol/L Normal 133-145 [facility] Comment on above: Performed By: #### L 506.1001, L503.6550, L500.3400, L501.5200, L501.9520, L100.0100, L503.6030, L500.2500, L506.0400, L501.9985 #### [facility] [address] [facility] [place], [address] Urea nitrogen [Mass/Vol] 15 mg/dL Normal 4-19 [facility] Comment on above: Performed By: #### L 506.1001, L503.6550, L500.3400, L501.5200, L501.9520, L100.0100, L503.6030, L500.2500, L506.0400, L501.9985 #### [facility] [address] [place], [place], [id number] Basophil percentageOrdered B y: Blue Lambert on 09-12-2024 Basophils/100 WBC (Bld) 1.3 % High 0-[address] [facility] Bilirubin directOrdered By: Blue Lambert on 09-12-2024 Bilirubin.direct [Mass/Vol] 1.69 mg/dL High 0.00-0.30 [facility] Bilirubin, totalOrdered By: Blue Lambert on 09-12-2024 Bilirubin [Mass/Vol] 7.07 mg/dL High 0.00-1.30 [facility] Blood polychromasia detectio n by light microscopyOrdered By: Blue Lambert on 09-12-2024 Polychromasia LM Ql (Bld) RARE [facility] CBC W/Diff, Automatedon 08-28 PLT EST ADEQUATE Normal ADEQ [facility] Comment on above: Performed By: #### L 506.1001, L503.6550, L500.3400, L501.5200, L501.9520, L100.0100, L503.6030, L500.2500, L506.0400, L501.9985 #### [facility] [address] [place], [place], [id number] Calculated total iron bindin g capacityOrdered By: Blue Lambert on 09-12-2024 Total Iron Binding Capacity 224 ug/dL Low 250-450 [facility] Carbon dioxide, total [Moles /volume] in Central venous bloodOrdered By: Blue Lambert on 09-12-2024 CO2 [Moles/Vol] 25.6 mmol/L 21.0-32.0 [facility] Chloride assayOrdered By: Arely Lambert on 09-12-2024 Chloride [Moles/Vol] 103 mmol/L 98-108 [facility] Eosinophil percentageOrdered By: Blue Lambert on 09-12-2024 Eosinophils/100 WBC (Bld) 1.7 % 0-5 [facility] Erythrocyte distribution wid th (RBC) [Ratio]Ordered By: Blue Lambert on 09-12-2024 Erythrocyte distribution width (RBC) [Entitic vol] 108.5 fL High 35.1-43.9 [facility] Erythrocyte distribution wid th ratioOrdered By: Blue Lambert on 09-12-2024 Erythrocyte distribution width (RBC) [Ratio] 30.6 % High 11.6-14.6 [facility] Erythrocyte distribution wid th standard deviationOrdered By: Blue Lambert on 09-12-2024 Erythrocyte distribution width (RBC) [Ratio] 108.5 fl High 35.1-43.9 [facility] Ferritinon 09-12-2024 Ferritin [Mass/Vol] 225 ng/mL Normal 22-378 [facility] Comment on above: Performed By: #### L 506.1001, L503.6550, L500.3400, L501.5200, L501.9520, L100.0100, L503.6030, L500.2500, L506.0400, L501.9985 #### [facility] [address] [place], [place], [id number] GFR/1.73 sq M.predicted della g non-blacks MDRD (S/P/Bld) [Vol rate/Area]Ordered By: Blue Lambert on 09-12-2024 Estimated GFR (MDRD) Non-Af Amer 62 >60 [facility] Comment on above: mL/min/1.73m2 CKD-EP I Creatinine Equation (2020) Glomerular filtration rate ( GFR) estimation/1.73 sq m using serum, plasma, or whole bOrdered By: Blue Lambert on 09-12-2024 GFR/1.73 sq M.predicted among non-blacks MDRD (S/P/Bld) [Vol rate/Area] 62 mL/min/{1.73_m2} >60 [facility] Comment on above: mL/min/1.73m2 CKD-EP I Creatinine Equation (2020) Hematocrit Auto (Bld) [Volum e fraction]Ordered By: Blue Lambert on 09-12-2024 Hematocrit (Bld) [Volume fraction] 36.1 % Low 37-47 [facility] Hemoglobin A1con 09-12-2024 HbA1c (Bld) [Mass fraction] 5.6 % Normal <=5.6 [facility] Comment on above: Result Comment: Norm al < 5.7 % Prediabetic 5.7 - 6.4 % Diabetic >or= 6.5 % Please note range changes. Performed By: #### L 506.1001, L503.6550, L500.3400, L501.5200, L501.9520, L100.0100, L503.6030, L500.2500, L506.0400, L501.9985 ####[facility] [address] [place], [address] Hemoglobin A1c percentageOrd ered By: Blue Lambert on 09-12-2024 HbA1c (Bld) [Mass fraction] 5.6 % <5.7 [facility] Comment on above: Normal < 5.7 % Predi abetic 5.7 - 6.4 % Diabetic >or= 6.5 % Please note range changes. Hemoglobin measurementOrdere d By: Blue Lambert on 09-12-2024 Hemoglobin (Bld) [Mass/Vol] 12.2 g/dL 12.0-15.0 [facility] Hypochromatic red blood cell detectionOrdered By: Blue Lambert on 09-12-2024 Hypochromia Ql (Bld) 1+ [facility] Hypochromia Ql (Bld)Ordered By: Blue Lambert on 09-12-2024 Hypochromasia 1+ [facility] Immature granulocytes/100 WB C Auto (Bld)Ordered By: Blue Lambert on 09-12-2024 Immature granulocytes/100 WBC (Bld) 0.400 % 0.0-0.9 [facility] Comment on above: IG% - Immature Granu locytes (promyelocytes, myelocytes and metamyelocytes) > 1% indicates that a LEFT SHIFT is Present. Iron (Unsp spec) [Mass/Mass] Ordered By: Blue Lambert on 09-12-2024 Iron [Mass/Vol] 163 ug/dL 50-170 [facility] Iron measurement (mass/mass) Ordered By: Blue Lambert on 09-12-2024 Iron (Unsp spec) [Mass/Mass] 163 ug/dL 50-170 [facility] Iron saturation [Mass fracti on]Ordered By: Blue Lambert on 09-12-2024 Iron Saturation 72.8 % High 13-59 [facility] Comment on above: Previous reported re sult: 73.0 %Edited by: NATHAN on 09/12/24:1652 AMENDED REPORT 09/12/241651 IRON SATURATION previously reported as: 73.0 H % Iron+Iron Binding Capacityon 09-12-2024 TIBC 224 ug/dL Low 250-450 [facility] Comment on above: Performed By: #### L 506.1001, L503.6550, L500.3400, L501.5200, L501.9520, L100.0100, L503.6030, L500.2500, L506.0400, L501.9985 #### [facility] [address] [place], [place], [id number] Laboratory - Chemistry and C hemistry - challengeOrdered By: Blue Lambert on 09-12-2024 AST [Catalytic activity/Vol] 27 U/L <32 [facility] Laboratory - Hematology and Cell countsOrdered By: Blue Lambert on 09-12-2024 Anisocytosis Ql (Bld) 2+ [facility] Liver Profileon 09-12-2024 Albumin [Mass/Vol] 4.0 g/dL Normal 3.4-4.8 [facility] Comment on above: Performed By: #### L 506.1001, L503.6550, L500.3400, L501.5200, L501.9520, L100.0100, L503.6030, L500.2500, L506.0400, L501.9985 #### [facility] [address] [place], [place], [id number] ALK PHOS 133 U/L High 35-104 [facility] Comment on above: Performed By: #### L 506.1001, L503.6550, L500.3400, L501.5200, L501.9520, L100.0100, L503.6030, L500.2500, L506.0400, L501.9985 #### [facility] [address] [place], [address] ALT [Catalytic activity/Vol] 18 U/L Normal <=34 [facility] Comment on above: Performed By: #### L 506.1001, L503.6550, L500.3400, L501.5200, L501.9520, L100.0100, L503.6030, L500.2500, L506.0400, L501.9985 #### [facility] [address] [facility] [address] [place], [place], [id number] (017) AST [Catalytic activity/Vol] 27 U/L Normal <=31 [facility] Comment on above: Performed By: #### L 506.1001, L503.6550, L500.3400, L501.5200, L501.9520, L100.0100, L503.6030, L500.2500, L506.0400, L501.9985 #### [facility] [address] [place], [place], [id number] (918) Bilirubin [Mass/Vol] 7.07 mg/dL High 0.00-1.30 [facility] Comment on above: Performed By: #### L 506.1001, L503.6550, L500.3400, L501.5200, L501.9520, L100.0100, L503.6030, L500.2500, L506.0400, L501.9985 #### [facility] [address] [place], [place], [id number] (286) Bilirubin.direct [Mass/Vol] 1.69 mg/dL High 0.00-0.30 [facility] Comment on above: Performed By: #### L 506.1001, L503.6550, L500.3400, L501.5200, L501.9520, L100.0100, L503.6030, L500.2500, L506.0400, L501.9985 #### [facility] [address] [place], [address] Globulin (S) [Mass/Vol] 1.7 g/dL Low 2.2-4.[address] [facility] Comment on above: Performed By: #### L 506.1001, L503.6550, L500.3400, L501.5200, L501.9520, L100.0100, L503.6030, L500.2500, L506.0400, L501.9985 #### [facility] [address] [facility] [place], [address] T PROT 5.7 g/dL Low 5.9-8.4 [facility] Comment on above: Performed By: #### L 506.1001, L503.6550, L500.3400, L501.5200, L501.9520, L100.0100, L503.6030, L500.2500, L506.0400, L501.9985 #### [facility] [address] [place], [place], [id number] Lymphocytes Auto (Unsp spec) [#/Vol]Ordered By: Blue Lambert on 09-12-2024 Lymphocytes (Bld) [#/Vol] 2.62 10*3/uL 0.83-4.51 [facility] Lymphocytes/100 WBC Auto (Un sp spec)Ordered By: Blue Lambert on 09-12-2024 Lymphocytes/100 WBC (Bld) 33.4 % 19-41 [facility] MCV (mean corpuscular volume ) determinationOrdered By: Blue Lambert on 09-12-2024 MCV (RBC) [Entitic vol] 101.1 fL High 81-[address] [facility] Magnesiumon 09-12-2024 Magnesium [Mass/Vol] 2.4 mg/dL High 1.5-2.2 [facility] Comment on above: Performed By: #### L 506.1001, L503.6550, L500.3400, L501.5200, L501.9520, L100.0100, L503.6030, L500.2500, L506.0400, L501.9985 ####[facility] [address] [place], [address] Magnesium (Unsp spec) [Mass/ Vol]Ordered By: Blue Lambert on 09-12-2024 Magnesium [Mass/Vol] 2.4 mg/dL High 1.5-2.2 [facility] Magnesium measurement (mass/ volume)Ordered By: Blue Lambert on 09-12-2024 Magnesium (Unsp spec) [Mass/Vol] 2.4 mg/dL High 1.5-2.2 [facility] Mean corpuscular hemoglobin (MCH) determinationOrdered By: Blue Lambert on 09-12-2024 MCH (RBC) [Entitic mass] 34.2 pg High 27.0-32.0 [facility] Mean corpuscular hemoglobin concentration (MCHC) determinationOrdered By: Blue Lambert on 09-12-2024 MCHC (RBC) [Mass/Vol] 33.8 g/dL 32-36 [facility] Mean platelet volume determi nationOrdered By: Blue Lambert on 09-12-2024 Platelet mean volume (Bld) [Entitic vol] 10.9 fL 6.2-12.0 [facility] Monocyte percentageOrdered B y: Blue Lambert on 09-12-2024 Monocytes/100 WBC (Bld) 16.3 % High 0-[address] [facility] Neutrophil percentageOrdered By: Blue Lambert on 09-12-2024 Neutrophils/100 WBC (Bld) 46.9 % Low 47-70 [facility] No Panel InformationOrdered By: Blue Lambert on 09-12-2024 Unsaturated Iron Binding Capacity 61 ug/dL Low 228-428 [facility] Nucleated red blood cell per centageOrdered By: Blue Lambert on 09-12-2024 Nucleated RBC/100 WBC (Bld) [Ratio] 0.6 % 0-5 [facility] Platelet countOrdered By: Arely Lambert on 09-12-2024 Platelets (Bld) [#/Vol] 206 10*3/uL 150-450 [facility] Platelet estimateOrdered By: Blue Lambert on 09-12-2024 Platelets LM Ql (Bld) ADEQUATE ADEQ [facility] Platelets LM Ql (Bld)Ordered By: Blue Lambert on 09-12-2024 Platelet Estimate ADEQUATE ADEQ [facility] Polychromasia LM Ql (Bld)Ord ered By: Blue Lambert on 09-12-2024 Polychromasia RARE [facility] Potassium (Unsp spec) [Mass/ Vol]Ordered By: Blue Lambert on 09-12-2024 Potassium [Moles/Vol] 4.2 mmol/L 3.3-5.1 [facility] Potassium measurement (mass/ volume)Ordered By: Blue Lambert on 09-12-2024 Potassium (Unsp spec) [Mass/Vol] 4.2 mmol/L 3.3-5.1 [facility] RBC Auto (Bld) [#/Vol]Ordere d By: Blue Lambert on 09-12-2024 RBC (Bld) [#/Vol] 3.57 10*6/uL Low 4.2-5.4 [facility] Serum creatinine measurement (mass/volume)Ordered By: Blue Lambert on 09-12-2024 Creatinine [Mass/Vol] 0.90 mg/dL 0.70-1.20 [facility] Comment on above: Icterus present, Res ults may be affected. Serum globulin measurementOr dered By: Blue Lambert on 09-12-2024 Globulin (S) [Mass/Vol] 1.7 g/dL Low 2.2-4.[address] [facility] Serum glucose measurement (m ass/volume)Ordered By: Blue Lambert on 09-12-2024 Glucose [Mass/Vol] 128 mg/dL High 70-99 [facility] Serum or plasma alanine guajardo otransferase (ALT) measurementOrdered By: Blue Lambert on 09-12-2024 ALT [Catalytic activity/Vol] 18 U/L <35 [facility] Serum or plasma albumin don urement (mass/volume)Ordered By: Blue Lambert on 09-12-2024 Albumin [Mass/Vol] 4.0 g/dL 3.4-4.8 [facility] Serum or plasma alkaline pamela sphatase measurementOrdered By: Blue Lambert on 09-12-2024 ALP [Catalytic activity/Vol] 133 U/L High 35-104 [facility] Serum or plasma calcium don urement (mass/volume)Ordered By: Blue Lambert on 09-12-2024 Calcium [Mass/Vol] 9.0 mg/dL 7.6-11.0 [facility] Serum or plasma ferritin jeremiah surement (mass/volume)Ordered By: Blue Lambert on 09-12-2024 Ferritin [Mass/Vol] 225 ng/mL 22-378 [facility] Serum or plasma iron saturat ion measurement (mass fraction)Ordered By: Blue Lambert on 09-12-2024 Iron saturation [Mass fraction] 72.8 % High 13-59 [facility] Comment on above: Previous reported re sult: 73.0 %Edited by: NATHAN on 09/12/24:1652 AMENDED REPORT 09/12/24 1652 IRON SATURATION previously reported as: 73.0 H % Serum or plasma urea nitroge n measurement (mass/volume)Ordered By: Blue Lambert on 09-12-2024 Urea nitrogen [Mass/Vol] 15 mg/dL 4-19 [facility] Sodium levelOrdered By: Blue Lambert on 09-12-2024 Sodium [Moles/Vol] 138 mmol/L 133-145 [facility] T4 Free Directon 09-12-2024 T4 FREE DIRECT 1.30 ng/dL Normal 0.76-1.46 [facility] Comment on above: Performed By: #### L 506.1001, L503.6550, L500.3400, L501.5200, L501.9520, L100.0100, L503.6030, L500.2500, L506.0400, L501.9985 #### [facility] Laboratory [facility] [address] [place], [place], [id number] T4 freeOrdered By: Blue vang on 09-12-2024 Free T4 [Mass/Vol] 1.30 ng/dL 0.76-1.46 [facility] TSH DL <= 0.005 mIU/L QnOrde red By: Blue Lambert on 09-12-2024 Thyroid Stimulating Hormone (TSH) 4.340 uIU/mL High 0.300-4.200 [facility] TSH Qn 4.340 uIU/mL High 0.300-4.200 [facility] Target cell detectionOrdered By: Blue Lambert on 09-12-2024 Target cells LM Ql (Bld) 1+ [facility] Target cells LM Ql (Bld)Orde red By: Blue Lambert on 09-12-2024 Target Cells 1+ [facility] Thyroid Stim Hormone (TSH)on 09-12-2024 TSH 4.340 uIU/mL High 0.300-4.200 [facility] Comment on above: Performed By: #### L 506.1001, L503.6550, L500.3400, L501.5200, L501.9520, L100.0100, L503.6030, L500.2500, L506.0400, L501.9985 #### [facility] [address] [place], [place], [id number] Total proteinOrdered By: Rinku Lambert on 09-12-2024 Protein [Mass/Vol] 5.7 g/dL Low 5.9-8.4 [facility] Vitamin D, 25-hydroxyOrdered By: Blue Labmert on 09-12-2024 Vitamin D 25-Hydroxy 35.6 ng/mL 30-100 [facility] Comment on above: Vitamin D StatusDefi ciency: <20 ng/mL (50nmol/L)Insufficiency: 20-30 ng/mL (50-75 nmol/L)Sufficiency: 30-100 ng/mL (75-250 nmol/L)Toxicity: >100 ng/mL (>250 nmol/L) Vitamin D,25 Hydroxyon 09-12 Vitamin D 25-OH 35.6 ng/mL Normal 30-100 [facility] Comment on above: Result Comment: Viviana min D Status Deficiency: <20 ng/mL (50nmol/L) Insufficiency: 20-30 ng/mL (50-75 nmol/L) Sufficiency: 30-100 ng/mL (75-250 nmol/L) Toxicity: >100 ng/mL (>250 nmol/L) Performed By: #### L 506.1001, L503.6550, L500.3400, L501.5200, L501.9520, L100.0100, L503.6030, L500.2500, L506.0400, L501.9985 #### [facility] [address] [place], [address] White blood cell (WBC) count Ordered By: Blue Lambert on 09-12-2024 WBC (Bld) [#/Vol] 7.8 10*3/uL 4.4-11.0 [facility] 12 Lead EKG performed by [facility] on 08-14-2024 12 Lead EKG performed by [facility] [address] [place] [address] 12 Lead EKG performed by [facility] 08/14/24 1404 MR#: [id number] Acct: [id number] Name: ANANTH BANDA Rep #: [id number] : 1935 89 From: Yair VASQUEZ Attending Dr: CHRISTINA Pike Status: DEP AM B Ordering Dr: Yair Ireland Date: 08/14/24 [place] [facility] [place]: F C Admitted: [facility]/12 Lead EKG performed by [facility] ECG Report Interpretation - atrial fibrillation Low voltage in limb leads. -Nonspecific QRS widening and anterior fascicular block. -Poor R-wave progression -may be secondary to pulmonary disease consider old anterior infarct. ABNORMAL Electronically signed on 08/16/2024 at 07:40 by Jb [employer] Version [id number] 08/16/24 0746 Date Yair Ireland PA CC: Dr. Blue Lambert MD Date Dictated: 08/14/241403 Date Transcribed: 08/14/241403 Branch Library Clerk: SCOTT Signed Normal [facility] Anion gap in Serum or Plasma Ordered By: Yair Ireland on 08-14-2024 Anion gap [Moles/Vol] 8 mmol/L - [facility] BUN/creatinine ratioOrdered By: Yair Ireland on 08-14-2024 Urea nitrogen/Creatinine [Mass ratio] 15.2 mg/mg - [facility] Basic Metabolic Profile (BMP )on 08-14-2024 BUN/CRE 15.2 RATIO Normal 03-18 [facility] Comment on above: Performed By: #### L 506.1001, L503.6550, L500.3400, L501.5200, L501.9520, L100.0100, L503.6030, L500.2500, L506.0400, L501.9985 #### [facility] [address] [place], [address] Calcium [Mass/Vol] 9.0 mg/dL Normal 7.6-11.0 [facility] Comment on above: Performed By: #### L 506.1001, L503.6550, L500.3400, L501.5200, L501.9520, L100.0100, L503.6030, L500.2500, L506.0400, L501.9985 #### [facility] [address] [place], [address] Chloride [Moles/Vol] 104 mmol/L Normal 98-108 [facility] Comment on above: Performed By: #### L 506.1001, L503.6550, L500.3400, L501.5200, L501.9520, L100.0100, L503.6030, L500.2500, L506.0400, L501.9985 #### [facility] [address] [place], [place], [id number] CO2 [Moles/Vol] 25.7 mmol/L Normal 21.0-32.0 [facility] Comment on above: Performed By: #### L 506.1001, L503.6550, L500.3400, L501.5200, L501.9520, L100.0100, L503.6030, L500.2500, L506.0400, L501.9985 #### [facility] [address] [place], [place], [id number] (235) Creatinine [Mass/Vol] 0.82 mg/dL Normal 0.70-1.20 [facility] Comment on above: Result Comment: Icte aron present, Results may be affected. Performed By: #### L 506.1001, L503.6550, L500.3400, L501.5200, L501.9520, L100.0100, L503.6030, L500.2500, L506.0400, L501.9985 #### [facility] [address] [place], [place], [id number] (777) GAP 8 Normal 5-15 [facility] Comment on above: Performed By: #### L 506.1001, L503.6550, L500.3400, L501.5200, L501.9520, L100.0100, L503.6030, L500.2500, L506.0400, L501.9985 #### [facility] [address] [place], [place], [phone] GFR/1.73 sq M.predicted among non-blacks MDRD (S/P/Bld) [Vol rate/Area] 69 mL/min/{1.73_m2} Normal >60 [facility] Comment on above: Result Comment: mL/m in/1.73m2 CKD-EPI Creatinine Equation (2020) Performed By: #### L 506.1001, L503.6550, L500.3400, L501.5200, L501.9520, L100.0100, L503.6030, L500.2500, L506.0400, L501.9985 #### [facility] [address] [place], [address] Glucose [Mass/Vol] 119 mg/dL High 70-99 [facility] Comment on above: Performed By: #### L 506.1001, L503.6550, L500.3400, L501.5200, L501.9520, L100.0100, L503.6030, L500.2500, L506.0400, L501.9985 #### [facility] [address] [place], [address] Potassium [Moles/Vol] 4.0 mmol/L Normal 3.3-5.1 [facility] Comment on above: Result Comment: Hemo lysis present, Results??could be affected. ?? Performed By: #### L 506.1001, L503.6550, L500.3400, L501.5200, L501.9520, L100.0100, L503.6030, L500.2500, L506.0400, L501.9985 #### [facility] [address] [place], [address] Sodium [Moles/Vol] 138 mmol/L Normal 133-145 [facility] Comment on above: Performed By: #### L 506.1001, L503.6550, L500.3400, L501.5200, L501.9520, L100.0100, L503.6030, L500.2500, L506.0400, L501.9985 #### [facility] [address] [place], [address] Urea nitrogen [Mass/Vol] 12 mg/dL Normal 4-19 [facility] Comment on above: Performed By: #### L 506.1001, L503.6550, L500.3400, L501.5200, L501.9520, L100.0100, L503.6030, L500.2500, L506.0400, L501.9985 #### [facility] [address] [place], [place], [id number] (375) Blood manual differential co mment interpretation (narrative result)Ordered By: Yair Ireland on 08-14-2024 Manual differential comment Ulises (Bld) [Interp] COMMENT [facility] Comment on above: 2+ ANISO. CBC-Complete Blood Cnt No Di ffon 08-14-2024 RDW SD 107.4 fl High 35.1-43.9 [facility] Comment on above: Performed By: #### L 506.1001, L503.6550, L500.3400, L501.5200, L501.9520, L100.0100, L503.6030, L500.2500, L506.0400, L501.9985 #### [facility] [address] [place], [place], [id number] Erythrocyte distribution width (RBC) [Ratio] 29.9 % High 11.6-14.6 [facility] Comment on above: Performed By: #### L 506.1001, L503.6550, L500.3400, L501.5200, L501.9520, L100.0100, L503.6030, L500.2500, L506.0400, L501.9985 #### [facility] [address] [place], [place], [phone] (507) Hematocrit (Bld) [Volume fraction] 35.1 % Low 37-47 [facility] Comment on above: Performed By: #### L 506.1001, L503.6550, L500.3400, L501.5200, L501.9520, L100.0100, L503.6030, L500.2500, L506.0400, L501.9985 #### [facility] [address] [place], [address] Hemoglobin (Bld) [Mass/Vol] 12.3 g/dL Normal 12.0-15.0 [facility] Comment on above: Performed By: #### L 506.1001, L503.6550, L500.3400, L501.5200, L501.9520, L100.0100, L503.6030, L500.2500, L506.0400, L501.9985 #### [facility] [address] [place], [address] MCH (RBC) [Entitic mass] 35.2 pg High 27.0-32.0 [facility] Comment on above: Performed By: #### L 506.1001, L503.6550, L500.3400, L501.5200, L501.9520, L100.0100, L503.6030, L500.2500, L506.0400, L501.9985 #### [facility] [address] [place], [address] MCHC (RBC) [Mass/Vol] 35.0 g/dL Normal 32-36 [facility] Comment on above: Performed By: #### L 506.1001, L503.6550, L500.3400, L501.5200, L501.9520, L100.0100, L503.6030, L500.2500, L506.0400, L501.9985 #### [facility] [address] [place], [place], [id number] MCV (RBC) [Entitic vol] 100.6 fL High 81-[address] [facility] Comment on above: Performed By: #### L 506.1001, L503.6550, L500.3400, L501.5200, L501.9520, L100.0100, L503.6030, L500.2500, L506.0400, L501.9985 #### [facility] [address] [facility] [place], [address] Platelet mean volume (Bld) [Entitic vol] 11.0 fL Normal 6.2-12.0 [facility] Comment on above: Performed By: #### L 506.1001, L503.6550, L500.3400, L501.5200, L501.9520, L100.0100, L503.6030, L500.2500, L506.0400, L501.9985 #### [facility] [address] [facility] [place], [address] Platelets (Bld) [#/Vol] 209 10*3/uL Normal 150-450 [facility] Comment on above: Performed By: #### L 506.1001, L503.6550, L500.3400, L501.5200, L501.9520, L100.0100, L503.6030, L500.2500, L506.0400, L501.9985 #### [facility] [address] [facility] [place], [address] RBC (Bld) [#/Vol] 3.49 10*6/uL Low 4.2-5.4 [facility] Comment on above: Performed By: #### L 506.1001, L503.6550, L500.3400, L501.5200, L501.9520, L100.0100, L503.6030, L500.2500, L506.0400, L501.9985 #### [facility] [address] [facility] [place], [address] WBC (Bld) [#/Vol] 6.5 10*3/uL Normal 4.4-11.0 [facility] Comment on above: Performed By: #### L 506.1001, L503.6550, L500.3400, L501.5200, L501.9520, L100.0100, L503.6030, L500.2500, L506.0400, L501.9985 #### [facility] [address] [facility] [place], [address] Carbon dioxide, total [Moles /volume] in Central venous bloodOrdered By: Yair Ireland on 08-14-2024 CO2 [Moles/Vol] 25.7 mmol/L 21.0-32.0 [facility] Cardiology Visit Reporton Cardiology Visit Report [facility] [address] [place] [address] OFFICE VISIT Date of Service: 08/14/24 MR#: [id number] Acct: [id number] Name: ANANTH BANDA Rep #: [id number] : 1935 Provider: CHRISTINA Pike Age/Sex: 89/F Location: [facility] Status: Signed HPI HPI History of Present Illness Details: Ananth Banda is an 88-year-old female who presents here today for cardiovascular follow-up visit.??? She has a history of atrial fibrillation, hypertension, intra-atrial shunt, PFO versus ASD, mitral regurgitation.??? She did undergo a cardioversion. Unfortunately she did not maintain SR. Patient was hospitalized 02/27 - 03/03/2024 for acute anemia and acute on chronic HFpEF. Patient was treated with IV Lasix and transition to p.o. Patient was then seen in the office 03/06/2024 in which patient had concerns of lower extremity edema. At that time, plan consisted of discontinuing Eliquis given the anemia and increasing Lasix to 40 mg twice daily. Patient initially had good response to this treatment with weight loss and significant improvement in edema. However, approximately 4 weeks ago, patient noticed increasing lower extremity edema and abdominal bloating along with weight gain. Patient is now experiencing shortness of breath with activity. Patient denies orthopnea. Patient reports fatigue and being So sleepy all the time, can sit down and sleep for an hour". This has been going on for a while, before she was in hospital. Patient denied chest pain, nausea, vomiting, heartburn symptoms. Further negative ROS below. Intake Vital Signs 03/06/24 13:30 03/14/24 13:35 08/14/24 13:25 08/14/24 14:46 Height 5 ft 8 in 5 ft 8 in 5 ft 8 in Weight: 180 lb BMI 27.3 BP 149/85 H 132/64 H Blood Pressure Location Lt brachial Lt brachial Position Sitting Sitting Respiration 18 Pulse 98 Pulse Source Monitor Pulse Oximetry (%) 95 Oxygen Delivery Method room air Intake Visit Reasons: 3 M FU Instrument Installer Required: No Accompanied by: Self Is patient in pain?: No Allergies amoxicillin (From Trimox) Allergy (Severe, Verified 08/14/24 13:25) throat swelling lisinopril Allergy (Severe, Verified 08/14/24 13:25) Angioedema amlodipine Adverse Reaction (Mild, Verified 08/14/24 13:25) swelling ciprofloxacin (From Cipro) Adverse Reaction (Verified 08/14/24 13:25) GI upset diphenhydramine (From Benadryl) Adverse Reaction (Verified 08/14/24 13:25) jittery Medications ???Medication ???Instructions ???Recorded ???Confirmed ???Type calcium 500 mg-vitamin D3 500 1 tab PO DAILY supplement 11/13/20 08/14/24 History unit-vitamin K 40 mcg chewable tablet (Viactiv) metoprolol succinate 100 mg 100 mg PO DAILY blood pressure 06/1908/14/24 History tablet,extended release 24 hr vitamins A,C,S-hxnt-tdkzdd 4,296 1 cap PO DAILY supplement 07/06/22 08/14/24 History mcg-226 mg-90 mg capsule (PreserVision AREDS) cholecalciferol (vitamin D3) 125 125 mcg PO Q OTHER DAY vitamin 08/14/24 History mcg (5,000 unit) tablet potassium chloride 20 mEq 20 meq PO DAILY #30 tabs 03/03/24 08/14/24 Rx tablet,extended release cyanocobalamin (vitamin B-12) 500 mcg PO QDAY vitamin 03/06/24 0 08/14/24 History 1,000 mcg tablet ferrous sulfate 325 mg (65 mg 325 mg PO QDAY 03/06/24 08/14/24 H istory iron) tablet spironolactone 25 mg tablet 25 mg PO DAILY diuretic #90 tabs 0 07/10/24 08/14/24 Rx furosemide 40 mg tablet (Lasix) 40 mg PO BID diuretic #180 tabs 08/14/24 Rx ascorbic acid (vitamin C) 500 mg 500 mg PO DAILY 08/14/24 08/14/24 History capsule Ejection fraction %: 55 Have you fallen in the past year?: No PFSH Medical History Atrial fibrillation Anemia Gilbert syndrome Hemolytic anemia Elevated bilirubin Bilateral lower extremity edema Acquired atrial septal defect (ASD) Multiple thyroid nodules Osteopenia Normocytic anemia Pericardial effusion Non-rheumatic tricuspid valve insufficiency Non-rheumatic mitral regurgitation Pseudophakia Essential hypertension Bee sting reaction Bronchitis Fatigue Cystic thyroid nodule Hemorrhoid Murmur, heart Surgical History History of cholecystectomy History of tubal ligation History of tonsillectomy S/P colonoscopy Family History Mother Diabetes Father Myocardial infarction CAD (coronary artery disease) Social History current occupational status: retired Smoking Status: Never smoker alcohol intake: current details: glass wine daily substance use type: does not use caffeine (more content not included)... Normal [facility] Chloride assayOrdered By: Ping Ireland on 08-14-2024 Chloride [Moles/Vol] 104 mmol/L 98-108 [facility] Differential Commenton 08-14 SMEAR COMMENT COMMENT Normal [facility] Comment on above: Result Comment: 2+ A NISO. Performed By: #### L 506.1001, L503.6550, L500.3400, L501.5200, L501.9520, L100.0100, L503.6030, L500.2500, L506.0400, L501.9985 #### [facility] Laboratory [facility] [place], [place], [id number] Erythrocyte distribution wid th ratioOrdered By: Yair Ireland on 08-14-2024 Erythrocyte distribution width (RBC) [Ratio] 29.9 % High 11.6-14.6 [facility] Erythrocyte distribution wid th standard deviationOrdered By: Yair Ireland on 08-14-2024 Erythrocyte distribution width (RBC) [Entitic vol] 107.4 fL High 35.1-43.9 [facility] Erythrocyte distribution width (RBC) [Ratio] 107.4 fl High 35.1-43.9 [facility] GFR/1.73 sq M.predicted della g non-blacks MDRD (S/P/Bld) [Vol rate/Area]Ordered By: Yair Ireland on 08-14-2024 Estimated GFR (MDRD) Non-Af Amer 69 >60 [facility] Comment on above: mL/min/1.73m2 CKD-EP I Creatinine Equation (2020) Glomerular filtration rate ( GFR) estimation/1.73 sq m using serum, plasma, or whole bOrdered By: Yair Ireland on 08-14-2024 GFR/1.73 sq M.predicted among non-blacks MDRD (S/P/Bld) [Vol rate/Area] 69 mL/min/{1.73_m2} >60 [facility] Comment on above: mL/min/1.73m2 CKD-EP I Creatinine Equation (2020) Hematocrit Auto (Bld) [Volum e fraction]Ordered By: Yair Ireland on 08-14-2024 Hematocrit (Bld) [Volume fraction] 35.1 % Low 37-47 [facility] Hemoglobin measurementOrdere d By: Yair Ireland on 08-14-2024 Hemoglobin (Bld) [Mass/Vol] 12.3 g/dL 12.0-15.0 [facility] L503.7505on 08-14-2024 Natriuretic peptide B (Bld) [Mass/Vol] 1562 pg/mL Normal <=1800 [facility] Comment on above: Result Comment: Hear t Failure Unlikely: < 300 pg/mL Heart Failure Likely < 50 Years: > 450 pg/mL 50-75 Years: > 900 pg/mL >75 Years: > 1800 pg/mL Performed By: #### L 506.1001, L503.6550, L500.3400, L501.5200, L501.9520, L100.0100, L503.6030, L500.2500, L506.0400, L501.9985 #### [facility] Laboratory [address] [place], [address] Laboratory - Chemistry and C hemistry - challengeOrdered By: Yair Ireland on 08-14-2024 Natriuretic peptide B (Bld) [Mass/Vol] 1562 pg/mL <1800 [facility] Comment on above: Heart Failure Unlike ly: < 300 pg/mLHeart Failure Likely< 50 Years: > 450 pg/mL50-75 Years: > 900 pg/mL>75 Years: > 1800 pg/mL MCV (mean corpuscular volume ) determinationOrdered By: Yair Ireland on 08-14-2024 MCV (RBC) [Entitic vol] 100.6 fL High 81-[address] [facility] Manual differential comment Ulises (Bld) [Interp]Ordered By: Yair Ireland on 08-14-2024 Differential Comment COMMENT [facility] Comment on above: 2+ ANISO. Mean corpuscular hemoglobin (MCH) determinationOrdered By: Yair Ireland on 08-14-2024 MCH (RBC) [Entitic mass] 35.2 pg High 27.0-32.0 [facility] Mean corpuscular hemoglobin concentration (MCHC) determinationOrdered By: Yair Ireland on 08-14-2024 MCHC (RBC) [Mass/Vol] 35.0 g/dL 32-36 [facility] Mean platelet volume determi nationOrdered By: Yair Ireland on 08-14-2024 Platelet mean volume (Bld) [Entitic vol] 11.0 fL 6.2-12.0 [facility] Platelet countOrdered By: Ping Ireland on 08-14-2024 Platelets (Bld) [#/Vol] 209 10*3/uL 150-450 [facility] Potassium (Unsp spec) [Mass/ Vol]Ordered By: Yair Ireland on 08-14-2024 Potassium [Moles/Vol] 4.0 mmol/L 3.3-5.1 [facility] Comment on above: Hemolysis present, R esults could be affected. Potassium measurement (mass/ volume)Ordered By: Yair Ireland on 08-14-2024 Potassium (Unsp spec) [Mass/Vol] 4.0 mmol/L 3.3-5.1 [facility] Comment on above: Hemolysis present, R esults could be affected. RBC Auto (Bld) [#/Vol]Ordere d By: Yair Ireland on 08-14-2024 RBC (Bld) [#/Vol] 3.49 10*6/uL Low 4.2-5.4 [facility] Serum creatinine measurement (mass/volume)Ordered By: Yair Ireland on 08-14-2024 Creatinine [Mass/Vol] 0.82 mg/dL 0.70-1.20 [facility] Comment on above: Icterus present, Res ults may be affected. Serum glucose measurement (m ass/volume)Ordered By: Yair Ireland on 08-14-2024 Glucose [Mass/Vol] 119 mg/dL High 70-99 [facility] Serum or plasma calcium don urement (mass/volume)Ordered By: Yair Ireland on 08-14-2024 Calcium [Mass/Vol] 9.0 mg/dL 7.6-11.0 [facility] Serum or plasma urea nitroge n measurement (mass/volume)Ordered By: Yair Ireland on 08-14-2024 Urea nitrogen [Mass/Vol] 12 mg/dL 4-19 [facility] Sodium levelOrdered By: Seble Ireland on 08-14-2024 Sodium [Moles/Vol] 138 mmol/L 133-145 [facility] White blood cell (WBC) count Ordered By: Yair Ireland on 08-14-2024 WBC (Bld) [#/Vol] 6.5 10*3/uL 4.4-11.0 [facility] Gastroenterology Visit Repor ton 06-22-2024 Gastroenterology Visit Report [facility] [address] [place] [address] OFFICE VISIT Date of Service: 06/22/24 MR#: [id number] Acct: [id number] Name: ANANTH BANDA TAYLOR Rep #: [id number] 3 : 1935 Provider: Dane Werner DO Age/Sex: 89/F Location[facility] Status: Signed Intake Vital Signs 03/14/24 13:35 Height 5 ft 8 in Weight: 171 lb BMI 25.9 Intake Visit Reasons: 3 M FU Allergies amoxicillin (From Trimox) Allergy (Severe, Verified 03/06/24 13:32) throat swelling lisinopril Allergy (Severe, Verified 03/06/24 13:32) Angioedema amlodipine Adverse Reaction (Mild, Verified 03/06/24 13:32) swelling ciprofloxacin (From Cipro) Adverse Reaction (Verified 03/06/24 13:32) GI upset diphenhydramine (From Benadryl) Adverse Reaction (Verified 03/06/24 13:32) jittery Medications ???Medication ???Instructions ???Recorded ???Confirmed ???Type calcium 500 mg-vitamin D3 500 1 tab PO DAILY supplement 11/13/20 06/22/24 History unit-vitamin K 40 mcg chewable tablet (Viactiv) metoprolol succinate 100 mg 100 mg PO DAILY blood pressure 11/27/20 06/22/24 History tablet,extended release 24 hr vitamins A,C,K-hyfc-qajdab 4,296 1 cap PO DAILY supplement 07/06/22 06/22/24 History mcg-226 mg-90 mg capsule (PreserVision AREDS) spironolactone 25 mg tablet 25 mg PO DAILY diuretic #90 tabs 08/01/23 06/22/24 Rx cholecalciferol (vitamin D3) 125 125 mcg PO Q OTHER DAY vitamin 12/23/23 06/22/24 History mcg (5,000 unit) tablet potassium chloride 20 mEq 20 meq PO DAILY #30 tabs 03/03/24 06/22/24 Rx tablet,extended release cyanocobalamin (vitamin B-12) 500 mcg PO QDAY vitamin 03/06/24 06/22/24 History 1,000 mcg tablet ferrous sulfate 325 mg (65 mg 325 mg PO QDAY 03/06/24 06/22/24 History iron) tablet furosemide 40 mg tablet (Lasix) 40 mg PO BID diuretic #90 tabs 03/06/24 06/22/24 Rx pantoprazole 40 mg tablet,delayed 40 mg PO BID #60 tabs 04/16/24 06/22/24 Rx release Have you fallen in the past year?: No [facility] Medical History (Updated 03/14/24 @ 17:[address] Vela Friend, DO) Anemia Gilbert syndrome Hemolytic anemia Elevated bilirubin Bilateral lower extremity edema Acquired atrial septal defect (ASD) Multiple thyroid nodules Osteopenia Normocytic anemia Pericardial effusion Non-rheumatic tricuspid valve insufficiency Non-rheumatic mitral regurgitation Pseudophakia Essential hypertension Atrial fibrillation Bee sting reaction Bronchitis Fatigue Cystic thyroid nodule Hemorrhoid Murmur, heart Surgical History History of cholecystectomy History of tubal ligation History of tonsillectomy S/P colonoscopy Family History Mother Diabetes Father Myocardial infarction CAD (coronary artery disease) Social History current occupational status: retired Smoking Status: Never smoker alcohol intake: current details: glass wine daily substance use type: does not use caffeine: Yes Type: coffee Number of servings: 1 HPI HPI Details: ANANTH BANDA, is a 89 F who presents to the office today for follow up. abd/pelvis CT 02.27.24 Hepatomegaly with steatosis. 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 Cholecystectomy. No biliary dilatation. Small amount of ascites. Anasarca. Bilateral pleural effusions larger on the right with partial compressive right lower lobe atelectasis. EGD 02.28.24 Normal esophagus. Non-bleeding gastric ulcers with no stigmata of bleeding. Biopsied. No gross lesions in the first portion of the duodenum. Biopsied. Colonoscopy 03.01.24 Preparation of the colon was fair. Diverticulosis in the recto-sigmoid colon, in the sigmoid colon, in the descending colon and at the splenic flexure. Stool at the splenic flexure, in the transverse colon, at the hepatic flexure, in the ascending colon and in the cecum. No specimens collected. OV 06.22.24 pt reports that she is feeling well and denies GI symptoms of concern at this time. Pt wonders if she can stop Pantoprazole, she has been having intermittent tremors and wonders if it is due to the Pantoprazole. Exam Const General: cooperative and well developed HENME Head: normal to inspection and atraumatic Ears: hearing grossly normal bilaterally Nose: nasal discharge clear Face and sinus: normal facial exam Mouth: oral mucosae normal Throat: abnormal tonsil bilaterally hypertrophy 1+ Resp Effort Inspection: normal respiratory effort and no audible wheezes Auscultation: Bilateral: Clear to Auscultation Cardio Palpation: normal PMI Rate: regular rate Rhyth (more content not included)... Normal [facility] Vitamin B12on 05-14-2024 Cobalamin (Vitamin B12) [Mass/Vol] 581 pg/mL Normal 211-911 [facility] Comment on above: Order Comment: Order Date: 05/11/24Order Info: 9 - B12 Performed By: #### L 506.1001, L503.6550, L500.3400, L501.5200, L501.9520, L100.0100, L503.6030, L500.2500, L506.0400, L501.9985 #### [facility] Laboratory [address] [place], [place], [id number] Absolute neutrophil countOrd ered By: Blue Lambert on 05-11-2024 Neutrophils (Bld) [#/Vol] 3.2 10*3/uL 2.0-7.7 [facility] Basic Metabolic Profile (BMP )on 05-11-2024 BUN/CRE 18.6 RATIO Normal 10-20 [facility] Comment on above: Order Comment: Order Date: 05/11/24Order Info: 0667-1 - BMPOrder Info: 0788-1 - LIVEROrder Info: [id number] - MGOrder Info: 2500-7 - TIBCOrder Info: 2498-4 - FEOrder Info: 2276-4 - FEROrder Info: 2284-8 - FOLSN Performed By: #### L 506.1001, L503.6550, L500.3400, L501.5200, L501.9520, L100.0100, L503.6030, L500.2500, L506.0400, L501.9985 #### [facility] Laboratory [address] [place], [place], [id number] CA,Total 9.4 mg/dL Normal 8.5-10.1 [facility] Comment on above: Order Comment: Order Date: 05/11/24Order Info: 666-05 - BMPOrder Info: 787-05 - LIVEROrder Info: [id number] - MGOrder Info: 2499-11 - TIBCOrder Info: [id number] - FEOrder Info: 2275-08 - FEROrder Info: 8 - FOLSN Performed By: #### L 506.1001, L503.6550, L500.3400, L501.5200, L501.9520, L100.0100, L503.6030, L500.2500, L506.0400, L501.9985 #### [facility] Laboratory [address] [place], [place], [phone] (882) Chloride [Moles/Vol] 105 mmol/L Normal 98-107 [facility] Comment on above: Order Comment: Order Date: 05/11/24Order Info: 666-05 - BMPOrder Info: 787-05 - LIVEROrder Info: - MGOrder Info: 2499-11 - TIBCOrder Info: 2497- - FEOrder Info: 2275-08 - FEROrder Info: 8 - FOLSN Performed By: #### L 506.1001, L503.6550, L500.3400, L501.5200, L501.9520, L100.0100, L503.6030, L500.2500, L506.0400, L501.9985 #### [facility] [address] [place], [address] CO2 [Moles/Vol] 28.0 mmol/L Normal 21.0-32.0 [facility] Comment on above: Order Comment: Order Date: 05/11/24Order Info: 666-05 - BMPOrder Info: 787-05 - LIVEROrder Info: - MGOrder Info: 2499-11 - TIBCOrder Info: 4 - FEOrder Info: 2275-08 - FEROrder Info: 8 - FOLSN Performed By: #### L 506.1001, L503.6550, L500.3400, L501.5200, L501.9520, L100.0100, L503.6030, L500.2500, L506.0400, L501.9985 #### [facility] Laboratory [address] [place], [place], [phone] (163) Creatinine [Mass/Vol] 0.75 mg/dL Normal 0.55-1.02 [facility] Comment on above: Order Comment: Order Date: 05/11/24Order Info: 666-05 - BMPOrder Info: 787-05 - LIVEROrder Info: [id number] - MGOrder Info: 2499-11 - TIBCOrder Info: 2497-08 - FEOrder Info: 2275-08 - FEROrder Info: 2283-12 - FOLSN Result Comment: The validity of the calculated GFR GFRAA in patients over 70 years has not been determined. Clinical correlation is essential. Performed By: #### L 506.1001, L503.6550, L500.3400, L501.5200, L501.9520, L100.0100, L503.6030, L500.2500, L506.0400, L501.9985 #### [facility] [address] [place], [place], [phone] (601) EST GFR - AA 94 mL/min Normal >60 [facility] Comment on above: Order Comment: Order Date: 05/11/24Order Info: 666-05 - BMPOrder Info: 787-05 - LIVEROrder Info: [id number] - MGOrder Info: 7 - TIBCOrder Info: 2497-08 - FEOrder Info: 2275-08 - FEROrder Info: 2283-12 - FOLSN Result Comment: Afri can Malian GFR Calc Performed By: #### L 506.1001, L503.6550, L500.3400, L501.5200, L501.9520, L100.0100, L503.6030, L500.2500, L506.0400, L501.9985 #### [facility] [address] [place], [place], [id number] GAP 7 Normal 5-15 [facility] Comment on above: Order Comment: Order Date: 05/11/24Order Info: 666-05 - BMPOrder Info: 787-05 - LIVEROrder Info: [id number] - MGOrder Info: 2499-11 - TIBCOrder Info: 2497-08 - FEOrder Info: 2275-08 - FEROrder Info: 2283-12 - FOLSN Performed By: #### L 506.1001, L503.6550, L500.3400, L501.5200, L501.9520, L100.0100, L503.6030, L500.2500, L506.0400, L501.9985 #### [facility] [address] [place], [address] (270) GFR/1.73 sq M.predicted among non-blacks MDRD (S/P/Bld) [Vol rate/Area] 77 mL/min/{1.73_m2} Normal >60 [facility] Comment on above: Order Comment: Order Date: 05/11/24Order Info: 666-05 - BMPOrder Info: 787-05 - LIVEROrder Info: [id number] - MGOrder Info: 2499-11 - TIBCOrder Info: 2497-08 - FEOrder Info: 2275-08 - FEROrder Info: 2283-12 - FOLSN Result Comment: Non- GFR Calc Performed By: #### L 506.1001, L503.6550, L500.3400, L501.5200, L501.9520, L100.0100, L503.6030, L500.2500, L506.0400, L501.9985 #### [facility] [address] [place], [place], [phone] (838) Glucose [Mass/Vol] 88 mg/dL Normal 74-106 [facility] Comment on above: Order Comment: Order Date: 05/11/24Order Info: 666-05 - BMPOrder Info: 787-05 - LIVEROrder Info: 00552-5 - MGOrder Info: 2499-11 - TIBCOrder Info: 2497-08 - FEOrder Info: 2275-08 - FEROrder Info: 2288 - FOLSN Performed By: #### L 506.1001, L503.6550, L500.3400, L501.5200, L501.9520, L100.0100, L503.6030, L500.2500, L506.0400, L501.9985 #### [facility] [address] [place], [address] Potassium [Moles/Vol] 3.9 mmol/L Normal 3.5-5.1 [facility] Comment on above: Order Comment: Order Date: 05/11/24Order Info: 666-05 - BMPOrder Info: 787-05 - LIVEROrder Info: - MGOrder Info: 2499-11 - TIBCOrder Info: 2497-08 - FEOrder Info: 2275-08 - FEROrder Info: 2283-12 - FOLSN Performed By: #### L 506.1001, L503.6550, L500.3400, L501.5200, L501.9520, L100.0100, L503.6030, L500.2500, L506.0400, L501.9985 #### [facility] [address] [place], [address] Sodium [Moles/Vol] 140 mmol/L Normal 136-145 [facility] Comment on above: Order Comment: Order Date: 05/11/24Order Info: 666-05 - BMPOrder Info: 787-05 - LIVEROrder Info: - MGOrder Info: 2499-11 - TIBCOrder Info: 2497-08 - FEOrder Info: 2275-08 - FEROrder Info: 2283-12 - FOLSN Performed By: #### L 506.1001, L503.6550, L500.3400, L501.5200, L501.9520, L100.0100, L503.6030, L500.2500, L506.0400, L501.9985 #### [facility] [address] [place], [place], [address] Urea nitrogen [Mass/Vol] 14 mg/dL Normal 7-18 [facility] Comment on above: Order Comment: Order Date: 05/11/24Order Info: 0667-1 - BMPOrder Info: 0788-1 - LIVEROrder Info: [id number] - MGOrder Info: 2500-7 - TIBCOrder Info: 2058-4 - FEOrder Info: 2275-4 - FEROrder Info: 228-8 - FOLSN Performed By: #### L 506.1001, L503.6550, L500.3400, L501.5200, L501.9520, L100.0100, L503.6030, L500.2500, L506.0400, L501.9985 #### [facility] [address] [place], [place], [address] Basophil percentageOrdered B y: Blue Lambert on 05-11-2024 Basophils/100 WBC (Bld) 1.1 % High 0-[address] [facility] Bilirubin directOrdered By: Blue Lambert on 05-11-2024 Bilirubin.direct [Mass/Vol] 0.81 mg/dL High 0.00-0.30 [facility] Bilirubin, totalOrdered By: Blue Lambert on 05-11-2024 Bilirubin [Mass/Vol] 4.80 mg/dL High 0.20-1.00 [facility] Comment on above: For patients on eltr ombopag therapy, use of Dimension [place] TBIL is not recommended. Blood urea nitrogen (BUN)/cr eatinine ratioOrdered By: Blue Lambert on 05-11-2024 Urea nitrogen/Creatinine [Mass ratio] 18.6 mg/mg 10-20 [facility] Antonieta cells LM Ql (Bld)Ordere d By: Blue Lambert on 05-11-2024 Valmeyer Cells RARE [facility] CBC W/Diff, Automatedon 04-29 [employer] CELLS 1+ Normal [facility] Comment on above: Order Comment: Order Date: 05/11/24Order Info: 0184-1 - CBCD Performed By: #### L 506.1001, L503.6550, L500.3400, L501.5200, L501.9520, L100.0100, L503.6030, L500.2500, L506.0400, L501.9985 #### [facility] [address] [place], [address] Anisocytosis Ql (Bld) 2+ Normal [facility] Comment on above: Order Comment: Order Date: 05/11/24Order Info: 018- - CBCD Performed By: #### L 506.1001, L503.6550, L500.3400, L501.5200, L501.9520, L100.0100, L503.6030, L500.2500, L506.0400, L501.9985 #### [facility] [address] [place], [place], [phone] (452) ANTONIETA CELLS RARE [facility] Comment on above: Order Comment: Order Date: 05/11/24Order Info: 018- - CBCD Performed By: #### L 506.1001, L503.6550, L500.3400, L501.5200, L501.9520, L100.0100, L503.6030, L500.2500, L506.0400, L501.9985 #### [facility] [address] [place], [place], [phone] (759) HYPOCHROMASIA 1+ Normal [facility] Comment on above: Order Comment: Order Date: 05/11/24Order Info: 018- - CBCD Performed By: #### L 506.1001, L503.6550, L500.3400, L501.5200, L501.9520, L100.0100, L503.6030, L500.2500, L506.0400, L501.9985 #### [facility] [address] [place], [place], [phone] (344) POLYCHROMASIA RARE [facility] Comment on above: Order Comment: Order Date: 05/11/24Order Info: 018- - CBCD Performed By: #### L 506.1001, L503.6550, L500.3400, L501.5200, L501.9520, L100.0100, L503.6030, L500.2500, L506.0400, L501.9985 #### [facility] [address] [place], [place], [address] STOMATOCYTE RARE [facility] Comment on above: Order Comment: Order Date: 05/11/24Order Info: 0184- - CBCD Performed By: #### L 506.1001, L503.6550, L500.3400, L501.5200, L501.9520, L100.0100, L503.6030, L500.2500, L506.0400, L501.9985 #### [facility] [address] [place], [place], [address] SMEAR COMMENT SCANNED Normal [facility] Comment on above: Order Comment: Order Date: 05/11/24Order Info: 018- - CBCD Performed By: #### L 506.1001, L503.6550, L500.3400, L501.5200, L501.9520, L100.0100, L503.6030, L500.2500, L506.0400, L501.9985 #### [facility] [address] [place], [place], [address] Carbon dioxide measurementOr dered By: Blue Lambert on 05-11-2024 CO2 [Moles/Vol] 28.0 mmol/L 21.0-32.0 [facility] Chloride measurementOrdered By: Blue Lambert on 05-11-2024 Chloride [Moles/Vol] 105 mmol/L 98-107 [facility] Eosinophil percentageOrdered By: Blue Lambert on 05-11-2024 Eosinophils/100 WBC (Bld) 1.5 % 0-5 [facility] Erythrocyte distribution wid th (RBC) [Entitic vol]Ordered By: Blue Lambert on 05-11-2024 RDW [facility] Comment on above: Test not performed Erythrocyte distribution wid th (RBC) [Ratio]Ordered By: Blue Lambert on 05-11-2024 RDW Coefficient of Variation [facility] Comment on above: Test not performed Estimated glomerular filtrat ion rate (GFR) AmericanOrdered By: Blue Lambert on 05-11-2024 Estimated GFR (MDRD) Amer 94 mL/min >60 [facility] Comment on above: GFR Calc Ferritinon 05-11-2024 Ferritin [Mass/Vol] 105 ng/mL Normal [facility] Comment on above: Order Comment: Order Date: 05/11/24Order Info: 666-05 - BMPOrder Info: 07 - LIVEROrder Info: [id number] - MGOrder Info: 7 - TIBCOrder Info: 2497-08 - FEOrder Info: 2275-08 - FEROrder Info: 2283-12 - FOLSN Performed By: #### L 506.1001, L503.6550, L500.3400, L501.5200, L501.9520, L100.0100, L503.6030, L500.2500, L506.0400, L501.9985 #### [facility] Laboratory [facility] [address] [place], [place], [id number] Ferritin measurementOrdered By: Blue Lambert on 05-11-2024 Ferritin [Mass/Vol] 105 ng/mL [facility] Folates, (Folic Acid)on 04-29 FOLATES 11.90 ng/mL Normal 3.1-55.4 [facility] Comment on above: Order Comment: Order Date: 05/11/24Order Info: 666-05 - BMPOrder Info: 787-05 - LIVEROrder Info: [id number] - MGOrder Info: 2500-7 - TIBCOrder Info: 2498-4 - FEOrder Info: 4 - FEROrder Info: 8 - FOLSN Performed By: #### L 506.1001, L503.6550, L500.3400, L501.5200, L501.9520, L100.0100, L503.6030, L500.2500, L506.0400, L501.9985 #### [facility] [address] [place], [address] Folic acid measurementOrdere d By: Blue Lambert on 05-11-2024 Folate 11.90 ng/mL 3.1-55.4 [facility] Glomerular filtration rate ( GFR) estimationOrdered By: Blue Lambert on 05-11-2024 Estimated GFR (MDRD) Non-Af Amer 77 mL/min >60 [facility] [facility] Comment on above: Non- GFR Calc Glucose measurementOrdered B y: Blue Lambert on 05-11-2024 Glucose [Mass/Vol] 88 mg/dL 74-106 [facility] Hematocrit Auto (Bld) [Volum e fraction]Ordered By: Blue Lambert on 05-11-2024 Hematocrit (Bld) [Volume fraction] 34.5 % Low 37-47 [facility] Hemoglobin measurementOrdere d By: Blue Lambert on 05-11-2024 Hemoglobin (Bld) [Mass/Vol] 11.5 g/dL Low 12.0-15.0 [facility] Hypochromia Ql (Bld)Ordered By: Blue Lambert on 05-11-2024 Hypochromasia 1+ [facility] Immature granulocytes/100 WB C Auto (Bld)Ordered By: Blue Lambert on 05-11-2024 Immature granulocytes/100 WBC (Bld) 0.400 % 0.0-0.9 [facility] Comment on above: IG% - Immature Granu locytes (promyelocytes, myelocytes and metamyelocytes) > 1% indicates that a LEFT SHIFT is Present. Ironon 05-11-2024 Iron [Mass/Vol] 111 ug/dL Normal 50-170 [facility] Comment on above: Order Comment: Order Date: 05/11/24Order Info: 0667-1 - BMPOrder Info: 0788-1 - LIVEROrder Info: [id number] - MGOrder Info: 2499-7 - TIBCOrder Info: 2498-4 - FEOrder Info: 2276-4 - FEROrder Info: 228-8 - FOLSN Performed By: #### L 506.1001, L503.6550, L500.3400, L501.5200, L501.9520, L100.0100, L503.6030, L500.2500, L506.0400, L501.9985 #### [facility] [address] [place], [place], [id number] Iron (Unsp spec) [Mass/Mass] Ordered By: Blue Lambert on 05-11-2024 Iron [Mass/Vol] 111 ug/dL 50-170 [facility] Iron Binding Capacity,Totalo n 05-11-2024 TIBC 326 ug/dL Normal 250-450 [facility] Comment on above: Order Comment: Order Date: 05/11/24Order Info: 0667-1 - BMPOrder Info: 0788-1 - LIVEROrder Info: 40427-4 - MGOrder Info: 7 - TIBCOrder Info: 4 - FEOrder Info: 2275-08 - FEROrder Info: 8 - FOLSN Performed By: #### L 506.1001, L503.6550, L500.3400, L501.5200, L501.9520, L100.0100, L503.6030, L500.2500, L506.0400, L501.9985 #### [facility] [address] [place], [place], [id number] Laboratory - Chemistry and C hemistry - challengeOrdered By: Blue Lambert on 05-11-2024 AST [Catalytic activity/Vol] 19 U/L 15-37 [facility] Laboratory - Hematology and Cell countsOrdered By: Blue Lambert on 05-11-2024 Anisocytosis Ql (Bld) 2+ [facility] Liver Profileon 05-11-2024 Albumin [Mass/Vol] 3.8 g/dL Normal 3.2-5.0 [facility] Comment on above: Order Comment: Order Date: 05/11/24Order Info: 666-05 - BMPOrder Info: 787-05 - LIVEROrder Info: - MGOrder Info: 2499-11 - TIBCOrder Info: 2497-08 - FEOrder Info: 2275-08 - FEROrder Info: 2283-12 - FOLSN Performed By: #### L 506.1001, L503.6550, L500.3400, L501.5200, L501.9520, L100.0100, L503.6030, L500.2500, L506.0400, L501.9985 #### [facility] [address] [place], [place], [address] ALK P 127 U/L High 45-117 [facility] Comment on above: Order Comment: Order Date: 05/11/24Order Info: 666-05 - BMPOrder Info: 787-05 - LIVEROrder Info: - MGOrder Info: 2499-11 - TIBCOrder Info: 2497-08 - FEOrder Info: 2275-08 - FEROrder Info: 2283-12 - FOLSN Performed By: #### L 506.1001, L503.6550, L500.3400, L501.5200, L501.9520, L100.0100, L503.6030, L500.2500, L506.0400, L501.9985 #### [facility] [address] [place], [place], [address] ALT [Catalytic activity/Vol] 20 U/L Normal 13-56 [facility] Comment on above: Order Comment: Order Date: 05/11/24Order Info: 666-05 - BMPOrder Info: 787-05 - LIVEROrder Info: - MGOrder Info: 2499-11 - TIBCOrder Info: 2497-08 - FEOrder Info: 2275-08 - FEROrder Info: 2283-12 - FOLSN Performed By: #### L 506.1001, L503.6550, L500.3400, L501.5200, L501.9520, L100.0100, L503.6030, L500.2500, L506.0400, L501.9985 #### [facility] [address] [place], [address] AST [Catalytic activity/Vol] 19 U/L Normal 15-37 [facility] Comment on above: Order Comment: Order Date: 05/11/24Order Info: 666-05 - BMPOrder Info: 787-05 - LIVEROrder Info: 37828-1 - MGOrder Info: 2499-11 - TIBCOrder Info: 24912-31 - FEOrder Info: 4 - FEROrder Info: 8 - FOLSN Performed By: #### L 506.1001, L503.6550, L500.3400, L501.5200, L501.9520, L100.0100, L503.6030, L500.2500, L506.0400, L501.9985 #### [facility] [address] [place], [address] Bilirubin [Mass/Vol] 4.80 mg/dL High 0.20-1.00 [facility] Comment on above: Order Comment: Order Date: 05/11/24Order Info: 666-05 - BMPOrder Info: 787-05 - LIVEROrder Info: 33406-5 - MGOrder Info: 2499-11 - TIBCOrder Info: [id number] - FEOrder Info: 2275-08 - FEROrder Info: 2283-12 - FOLSN Result Comment: For patients on eltrombopag therapy, use of Dimension Moroni TBIL is not recommended. Performed By: #### L 506.1001, L503.6550, L500.3400, L501.5200, L501.9520, L100.0100, L503.6030, L500.2500, L506.0400, L501.9985 #### [facility] [address] [place], [address] Bilirubin.direct [Mass/Vol] 0.81 mg/dL High 0.00-0.30 [facility] Comment on above: Order Comment: Order Date: 05/11/24Order Info: 666-05 - BMPOrder Info: 787-05 - LIVEROrder Info: 79907-9 - MGOrder Info: 7 - TIBCOrder Info: 2498-4 - FEOrder Info: 22710-31 - FEROrder Info: 8 - FOLSN Performed By: #### L 506.1001, L503.6550, L500.3400, L501.5200, L501.9520, L100.0100, L503.6030, L500.2500, L506.0400, L501.9985 #### [facility] [address] [place], [place], [address] Globulin (S) [Mass/Vol] 2.4 g/dL Normal 2.2-4.[address] [facility] Comment on above: Order Comment: Order Date: 05/11/24Order Info: 666-05 - BMPOrder Info: 787-05 - LIVEROrder Info: 04291-0 - MGOrder Info: 2499-11 - TIBCOrder Info: 2497-08 - FEOrder Info: 2275-08 - FEROrder Info: 2283-12 - FOLSN Performed By: #### L 506.1001, L503.6550, L500.3400, L501.5200, L501.9520, L100.0100, L503.6030, L500.2500, L506.0400, L501.9985 #### [facility] [address] [place], [place], [address] [phone] PROT 6.2 g/dL Low 6.4-8.2 [facility] Comment on above: Order Comment: Order Date: 05/11/24Order Info: 666-05 - BMPOrder Info: 787-05 - LIVEROrder Info: 48927-1 - MGOrder Info: 7 - TIBCOrder Info: 2498-4 - FEOrder Info: 22710-31 - FEROrder Info: 2283-12 - FOLSN Performed By: #### L 506.1001, L503.6550, L500.3400, L501.5200, L501.9520, L100.0100, L503.6030, L500.2500, L506.0400, L501.9985 #### [facility] [address] [place], [address] Lymphocytes Auto (Unsp spec) [#/Vol]Ordered By: Blue Lambert on 05-11-2024 Lymphocytes (Bld) [#/Vol] 2.51 10*3/uL 0.83-4.51 [facility] Lymphocytes/100 WBC Auto (Un sp spec)Ordered By: Blue Lambert on 05-11-2024 Lymphocytes/100 WBC (Bld) 34.7 % 19-41 [facility] MCV (mean corpuscular volume ) determinationOrdered By: Blue Lambert on 05-11-2024 MCV (RBC) [Entitic vol] 91.8 fL 81-[address] [facility] Magnesiumon 05-11-2024 Magnesium [Mass/Vol] 2.5 mg/dL Normal 1.6-2.6 [facility] Comment on above: Order Comment: Order Date: 05/11/24Order Info: 0667-1 - BMPOrder Info: 0788-1 - LIVEROrder Info: 65620-3 - MGOrder Info: 2500-7 - TIBCOrder Info: 2498-4 - FEOrder Info: 2276-4 - FEROrder Info: 2284-8 - FOLSN Performed By: #### L 506.1001, L503.6550, L500.3400, L501.5200, L501.9520, L100.0100, L503.6030, L500.2500, L506.0400, L501.9985 #### [facility] [address] [place], [place], [id number] Magnesium measurementOrdered By: Blue Lambert on 05-11-2024 Magnesium [Mass/Vol] 2.5 mg/dL 1.6-2.6 [facility] Manual differential comment Ulises (Bld) [Interp]Ordered By: Blue Lambert on 05-11-2024 Differential Comment SCANNED [facility] Mean corpuscular hemoglobin (MCH) determinationOrdered By: Blue Lambert on 05-11-2024 MCH (RBC) [Entitic mass] 30.6 pg 27.0-32.0 [facility] Mean corpuscular hemoglobin concentration (MCHC) determinationOrdered By: Blue Lambert on 05-11-2024 MCHC (RBC) [Mass/Vol] 33.3 g/dL 32-36 [facility] Mean platelet volume determi nationOrdered By: Blue Lambert on 05-11-2024 Platelet mean volume (Bld) [Entitic vol] 10.7 fL 6.2-12.0 [facility] Monocyte percentageOrdered B y: Bule Lambert on 05-11-2024 Monocytes/100 WBC (Bld) 18.1 % High 0-[address] [facility] Neutrophil percentageOrdered By: Blue Lambert on 05-11-2024 Neutrophils/100 WBC (Bld) 44.2 % Low 47-70 [facility] Nucleated red blood cell per centageOrdered By: Blue Lambert on 05-11-2024 Nucleated RBC/100 WBC (Bld) [Ratio] 0.3 % 0-5 [facility] Platelet countOrdered By: Arely Lambert on 05-11-2024 Platelets (Bld) [#/Vol] 228 10*3/uL 150-450 [facility] Polychromasia LM Ql (Bld)Ord ered By: Blue Lambert on 05-11-2024 Polychromasia RARE [facility] Potassium measurementOrdered By: Blue Lambert on 05-11-2024 Potassium [Moles/Vol] 3.9 mmol/L 3.5-5.1 [facility] RBC Auto (Bld) [#/Vol]Ordere d By: Blue Lambert on 05-11-2024 RBC (Bld) [#/Vol] 3.76 10*6/uL Low 4.2-5.4 [facility] Serum anion gap measurementO rdered By: Blue Lambert on 05-11-2024 Anion gap [Moles/Vol] 7 mmol/L 5-15 [facility] Serum globulin measurementOr dered By: Blue Lambert on 05-11-2024 Globulin (S) [Mass/Vol] 2.4 g/dL 2.2-4.2 [facility] Serum or plasma alanine guajardo otransferase (ALT) measurementOrdered By: Blue Lambert on 05-11-2024 ALT [Catalytic activity/Vol] 20 U/L 13-56 [facility] Serum or plasma albumin don urement (mass/volume)Ordered By: Blue Lambert on 05-11-2024 Albumin [Mass/Vol] 3.8 g/dL 3.2-5.0 [facility] Serum or plasma alkaline pamela sphatase measurementOrdered By: Blue Lambert on 05-11-2024 ALP [Catalytic activity/Vol] 127 U/L High 45-117 [facility] Serum or plasma calcium don urement (mass/volume)Ordered By: Blue Lambert on 05-11-2024 Calcium [Mass/Vol] 9.4 mg/dL 8.5-10.1 [facility] Serum or plasma creatinine m easurement (mass/volume)Ordered By: Blue Lambert on 05-11-2024 Creatinine [Mass/Vol] 0.75 mg/dL 0.55-1.02 [facility] Comment on above: The validity of the calculated GFR & GFRAA in patients over 70 years has not been determined. Clinical correlation is essential. Serum or plasma urea nitroge n measurement (mass/volume)Ordered By: Blue Lambert on 05-11-2024 Urea nitrogen [Mass/Vol] 14 mg/dL 7-18 [facility] Sodium levelOrdered By: Blue Lambert on 05-11-2024 Sodium [Moles/Vol] 140 mmol/L 136-145 [facility] Stomatocytes LM Ql (Bld)Orde red By: Blue Lambert on 05-11-2024 Stomatocytes RARE [facility] TIBCOrdered By: Blue villatoro on 05-11-2024 Total Iron Binding Capacity 326 ug/dL 250-450 [facility] Target cells LM Ql (Bld)Orde red By: Blue Lambert on 05-11-2024 Target Cells 1+ [facility] Total proteinOrdered By: Rinku Lambert on 05-11-2024 Protein [Mass/Vol] 6.2 g/dL Low 6.4-8.2 [facility] Vitamin B12 measurementOrder ed By: Blue Lambert on 05-11-2024 Cobalamin (Vitamin B12) [Mass/Vol] 581 pg/mL 211-911 [facility] White blood cell (WBC) count Ordered By: Blue Lambert on 05-11-2024 WBC (Bld) [#/Vol] 7.2 10*3/uL 4.4-11.0 [facility] CBC W/Diff, Automatedon 11-0 Anisocytosis Ql (Bld) 1+ Normal [facility] Comment on above: Order Comment: Order Date: 03/30/24Order Info: 0184-1 - CBCD Performed By: #### L 506.1001, L503.6550, L500.3400, L501.5200, L501.9520, L100.0100, L503.6030, L500.2500, L506.0400, L501.9985 #### [facility] [address] [place], [address] ANTONIETA CELLS RARE Normal [facility] Comment on above: Order Comment: Order Date: 03/30/24Order Info: 0184- - CBCD Performed By: #### L 506.1001, L503.6550, L500.3400, L501.5200, L501.9520, L100.0100, L503.6030, L500.2500, L506.0400, L501.9985 #### [facility] [address] [place], [address] HYPOCHROMASIA 1+ Normal [facility] Comment on above: Order Comment: Order Date: 03/30/24Order Info: 0184- - CBCD Performed By: #### L 506.1001, L503.6550, L500.3400, L501.5200, L501.9520, L100.0100, L503.6030, L500.2500, L506.0400, L501.9985 #### [facility] [address] [place], [address] PLT EST ADEQUATE Normal ADEQ [facility] Comment on above: Order Comment: Order Date: 03/30/24Order Info: [id number] - CBCD Performed By: #### L 506.1001, L503.6550, L500.3400, L501.5200, L501.9520, L100.0100, L503.6030, L500.2500, L506.0400, L501.9985 #### [facility] [address] [place], [address] SMEAR COMMENT Normal [facility] Comment on above: Order Comment: Order Date: 03/30/24Order Info: 183-05 - CBCD Result Comment: ANIS OCYTOSIS Performed By: #### L 506.1001, L503.6550, L500.3400, L501.5200, L501.9520, L100.0100, L503.6030, L500.2500, L506.0400, L501.9985 #### [facility] [address] [place], [place], [id number] Comprehensive Metabolic Prof maon 03-30-2024 Albumin [Mass/Vol] 3.7 g/dL Normal 3.2-5.0 [facility] Comment on above: Order Comment: Order Date: 03/30/24Order Info: 0786-1 - CMPOrder Info: [id number] - MGOrder Info: 3016-3 - TSHOrder Info: 2498-4 - FEOrder Info: 2276-4 - FEROrder Info: 3024-7 - T4F Performed By: #### L 506.1001, L503.6550, L500.3400, L501.5200, L501.9520, L100.0100, L503.6030, L500.2500, L506.0400, L501.9985 #### [facility] [address] [place], [address] Albumin/Globulin [Mass ratio] 1.5 {ratio} Normal 0.9-2.4 [facility] Comment on above: Order Comment: Order Date: 03/30/24Order Info: 86-1 - CMPOrder Info: 08732-1 - MGOrder Info: 3 - TSHOrder Info: [id number] - FEOrder Info: 4 - FEROrder Info: 3027 - T4F Performed By: #### L 506.1001, L503.6550, L500.3400, L501.5200, L501.9520, L100.0100, L503.6030, L500.2500, L506.0400, L501.9985 #### [facility] [address] [place], [place], [id number] ALK P 118 U/L High 45-117 [facility] Comment on above: Order Comment: Order Date: 03/30/24Order Info: 785- - CMPOrder Info: [id number] - MGOrder Info: 3015-07 - TSHOrder Info: 2497-08 - FEOrder Info: 2275-08 - FEROrder Info: 302-7 - T4F Performed By: #### L 506.1001, L503.6550, L500.3400, L501.5200, L501.9520, L100.0100, L503.6030, L500.2500, L506.0400, L501.9985 #### [facility] [address] [place], [place], [address] ALT [Catalytic activity/Vol] 19 U/L Normal 13-56 [facility] Comment on above: Order Comment: Order Date: 03/30/24Order Info: 785-1 - CMPOrder Info: 19005-1 - MGOrder Info: 3015-07 - TSHOrder Info: 24912-31 - FEOrder Info: 2274 - FEROrder Info: 3024-7 - T4F Performed By: #### L 506.1001, L503.6550, L500.3400, L501.5200, L501.9520, L100.0100, L503.6030, L500.2500, L506.0400, L501.9985 #### [facility] [address] [place], [place], [address] AST [Catalytic activity/Vol] 20 U/L Normal 15-37 [facility] Comment on above: Order Comment: Order Date: 03/30/24Order Info: 07-1 - CMPOrder Info: [id number] - MGOrder Info: 3015-3 - TSHOrder Info: 2498-4 - FEOrder Info: 2276-4 - FEROrder Info: 3024-7 - T4F Performed By: #### L 506.1001, L503.6550, L500.3400, L501.5200, L501.9520, L100.0100, L503.6030, L500.2500, L506.0400, L501.9985 #### [facility] [address] [place], [place], [id number] (749) Bilirubin [Mass/Vol] 4.10 mg/dL High 0.20-1.00 [facility] Comment on above: Order Comment: Order Date: 03/30/24Order Info: 07-1 - CMPOrder Info: 44812-1 - MGOrder Info: 3 - TSHOrder Info: 2494 - FEOrder Info: 2275-4 - FEROrder Info: 3024-7 - T4F Result Comment: For patients on eltrombopag therapy, use of Dimension [place]oni TBIL is not recommended. Performed By: #### L 506.1001, L503.6550, L500.3400, L501.5200, L501.9520, L100.0100, L503.6030, L500.2500, L506.0400, L501.9985 #### [facility] [address] [place], [address] BUN/CRE 17.3 RATIO Normal 10-20 [facility] Comment on above: Order Comment: Order Date: 03/30/24Order Info: 07-1 - CMPOrder Info: [id number] - MGOrder Info: 3016-3 - TSHOrder Info: 2498-4 - FEOrder Info: 2274 - FEROrder Info: 3024-7 - T4F Performed By: #### L 506.1001, L503.6550, L500.3400, L501.5200, L501.9520, L100.0100, L503.6030, L500.2500, L506.0400, L501.9985 #### [facility] [address] [place], [address] CA,Total 9.1 mg/dL Normal 8.5-10.1 [facility] Comment on above: Order Comment: Order Date: 03/30/24Order Info: 0786-1 - CMPOrder Info: - MGOrder Info: 3 - TSHOrder Info: 4 - FEOrder Info: 2275-08 - FEROrder Info: 7 - T4F Performed By: #### L 506.1001, L503.6550, L500.3400, L501.5200, L501.9520, L100.0100, L503.6030, L500.2500, L506.0400, L501.9985 #### [facility] [address] [place], [place], [id number] (377) Chloride [Moles/Vol] 105 mmol/L Normal 98-107 [facility] Comment on above: Order Comment: Order Date: 03/30/24Order Info: 0786-1 - CMPOrder Info: - MGOrder Info: 3 - TSHOrder Info: 249-4 - FEOrder Info: 4 - FEROrder Info: 3024-7 - T4F Performed By: #### L 506.1001, L503.6550, L500.3400, L501.5200, L501.9520, L100.0100, L503.6030, L500.2500, L506.0400, L501.9985 #### [facility] [address] [place], [place], [address] CO2 [Moles/Vol] 27.0 mmol/L Normal 21.0-32.0 [facility] Comment on above: Order Comment: Order Date: 03/30/24Order Info: 785-1 - CMPOrder Info: [id number] - MGOrder Info: 6-3 - TSHOrder Info: 2498-4 - FEOrder Info: 4 - FEROrder Info: 7 - T4F Performed By: #### L 506.1001, L503.6550, L500.3400, L501.5200, L501.9520, L100.0100, L503.6030, L500.2500, L506.0400, L501.9985 #### [facility] [address] [place], [place], [id number] (940) Creatinine [Mass/Vol] 0.81 mg/dL Normal 0.55-1.02 [facility] Comment on above: Order Comment: Order Date: 03/30/24Order Info: 785-05 - CMPOrder Info: [id number] - MGOrder Info: 3 - TSHOrder Info: 2494 - FEOrder Info: 2275-08 - FEROrder Info: 3023-11 - T4F Result Comment: The validity of the calculated GFR GFRAA in patients over 70 years has not been determined. Clinical correlation is essential. Performed By: #### L 506.1001, L503.6550, L500.3400, L501.5200, L501.9520, L100.0100, L503.6030, L500.2500, L506.0400, L501.9985 #### [facility] [address] [place], [place], [id number] EST GFR - AA 86 mL/min Normal >60 [facility] Comment on above: Order Comment: Order Date: 03/30/24Order Info: 07-1 - CMPOrder Info: 98026-1 - MGOrder Info: 63 - TSHOrder Info: [id number] - FEOrder Info: 2275-08 - FEROrder Info: 7 - T4F Result Comment: Afri can Malian GFR Calc Performed By: #### L 506.1001, L503.6550, L500.3400, L501.5200, L501.9520, L100.0100, L503.6030, L500.2500, L506.0400, L501.9985 #### [facility] [address] [place], [place], [address] (911) GAP 6 Normal 5-15 [facility] Comment on above: Order Comment: Order Date: 03/30/24Order Info: 07- - CMPOrder Info: - MGOrder Info: 3015-07 - TSHOrder Info: 2497-08 - FEOrder Info: 2275-08 - FEROrder Info: 3023-11 - T4F Performed By: #### L 506.1001, L503.6550, L500.3400, L501.5200, L501.9520, L100.0100, L503.6030, L500.2500, L506.0400, L501.9985 #### [facility] [address] [place], [place], [id number] (532) GFR/1.73 sq M.predicted among non-blacks MDRD (S/P/Bld) [Vol rate/Area] 71 mL/min/{1.73_m2} Normal >60 [facility] Comment on above: Order Comment: Order Date: 03/30/24Order Info: 785- - CMPOrder Info: - MGOrder Info: 3015-07 - TSHOrder Info: 2497-08 - FEOrder Info: 2275-08 - FEROrder Info: 3023-11 - T4F Result Comment: Non- GFR Calc Performed By: #### L 506.1001, L503.6550, L500.3400, L501.5200, L501.9520, L100.0100, L503.6030, L500.2500, L506.0400, L501.9985 #### [facility] [address] [place], [address] Globulin (S) [Mass/Vol] 2.5 g/dL Normal 2.2-4.[address] [facility] Comment on above: Order Comment: Order Date: 03/30/24Order Info: 785-1 - CMPOrder Info: [id number] - MGOrder Info: 3015-3 - TSHOrder Info: 2498-4 - FEOrder Info: 2275-4 - FEROrder Info: 7 - T4F Performed By: #### L 506.1001, L503.6550, L500.3400, L501.5200, L501.9520, L100.0100, L503.6030, L500.2500, L506.0400, L501.9985 #### [facility] [address] [place], [place], [id number] (101) Glucose [Mass/Vol] 124 mg/dL High 74-106 [facility] Comment on above: Order Comment: Order Date: 03/30/24Order Info: 785- - CMPOrder Info: [id number] - MGOrder Info: 3 - TSHOrder Info: 4 - FEOrder Info: 2275-08 - FEROrder Info: 7 - T4F Result Comment: Fast ing Glucose result from 100 to 125 mg/dL suggests IMPAIRED HOMEOSTASIS per A.D.A. criteria. Performed By: #### L 506.1001, L503.6550, L500.3400, L501.5200, L501.9520, L100.0100, L503.6030, L500.2500, L506.0400, L501.9985 #### [facility] [address] [place], [place], [address] Potassium [Moles/Vol] 3.7 mmol/L Normal 3.5-5.1 [facility] Comment on above: Order Comment: Order Date: 03/30/24Order Info: 07-1 - CMPOrder Info: 72125-2 - MGOrder Info: 6-3 - TSHOrder Info: 2498-4 - FEOrder Info: 2274 - FEROrder Info: 3027 - T4F Performed By: #### L 506.1001, L503.6550, L500.3400, L501.5200, L501.9520, L100.0100, L503.6030, L500.2500, L506.0400, L501.9985 #### [facility] [address] [place], [address] Sodium [Moles/Vol] 138 mmol/L Normal 136-145 [facility] Comment on above: Order Comment: Order Date: 03/30/24Order Info: 0786-1 - CMPOrder Info: [id number] - MGOrder Info: 3 - TSHOrder Info: 2497-08 - FEOrder Info: 4 - FEROrder Info: 7 - T4F Performed By: #### L 506.1001, L503.6550, L500.3400, L501.5200, L501.9520, L100.0100, L503.6030, L500.2500, L506.0400, L501.9985 #### [facility] [address] [place], [address] T PROT 6.2 g/dL Low 6.4-8.2 [facility] Comment on above: Order Comment: Order Date: 03/30/24Order Info: 0786-1 - CMPOrder Info: [id number] - MGOrder Info: 3 - TSHOrder Info: 4 - FEOrder Info: 4 - FEROrder Info: 3023-7 - T4F Performed By: #### L 506.1001, L503.6550, L500.3400, L501.5200, L501.9520, L100.0100, L503.6030, L500.2500, L506.0400, L501.9985 #### [facility] [address] [place], [address] Urea nitrogen [Mass/Vol] 14 mg/dL Normal 7-18 [facility] Comment on above: Order Comment: Order Date: 03/30/24Order Info: 0786-1 - CMPOrder Info: 23685-9 - MGOrder Info: 3 - TSHOrder Info: 2497-08 - FEOrder Info: [id number] - FEROrder Info: 7 - T4F Performed By: #### L 506.1001, L503.6550, L500.3400, L501.5200, L501.9520, L100.0100, L503.6030, L500.2500, L506.0400, L501.9985 #### [facility] [address] [place], [place], [id number] Ferritinon 03-30-2024 Ferritin [Mass/Vol] 90 ng/mL Normal 8-252 [facility] Comment on above: Order Comment: Order Date: 03/30/24Order Info: [id number] - CMPOrder Info: - MGOrder Info: [id number] - TSHOrder Info: [id number] - FEOrder Info: [id number] - FEROrder Info: [id number] - T4F Performed By: #### L 506.1001, L503.6550, L500.3400, L501.5200, L501.9520, L100.0100, L503.6030, L500.2500, L506.0400, L501.9985 #### [facility] [address] [place], [place], [id number] Hemoglobin A1con 03-30-2024 HbA1c (Bld) [Mass fraction] 5.6 % Normal 3.8-5.6 [facility] Comment on above: Order Comment: Order Date: 03/30/24Order Info: [id number] - A1C Result Comment: Norm al < 5.7 % Prediabetic 5.7 - 6.4 % Diabetic >or= 6.5 % Please note range changes. Performed By: #### L 506.1001, L503.6550, L500.3400, L501.5200, L501.9520, L100.0100, L503.6030, L500.2500, L506.0400, L501.9985 #### [facility] [address] [place], [place], [id number] Ironon 03-30-2024 Iron [Mass/Vol] 106 ug/dL Normal 50-170 [facility] Comment on above: Order Comment: Order Date: 03/30/24Order Info: 07-1 - CMPOrder Info: [id number] - MGOrder Info: 3 - TSHOrder Info: [id number] - FEOrder Info: [id number] - FEROrder Info: [id number] - T4F Performed By: #### L 506.1001, L503.6550, L500.3400, L501.5200, L501.9520, L100.0100, L503.6030, L500.2500, L506.0400, L501.9985 #### [facility] [address] [place], [place], [id number] [phone] Magnesiumon 03-30-2024 Magnesium [Mass/Vol] 2.3 mg/dL Normal 1.6-2.6 [facility] Comment on above: Order Comment: Order Date: 03/30/24Order Info: [id number] - CMPOrder Info: [id number] - MGOrder Info: [id number] - TSHOrder Info: 4 - FEOrder Info: 4 - FEROrder Info: [id number] - T4F Performed By: #### L 506.1001, L503.6550, L500.3400, L501.5200, L501.9520, L100.0100, L503.6030, L500.2500, L506.0400, L501.9985 #### [facility] [address] [place], [place], [address] [phone] [phone] Free Directon 03-30-2024 T4 FREE DIRECT 1.53 ng/dL High 0.76-1.46 [facility] Comment on above: Order Comment: Order Date: 03/30/24Order Info: 07-1 - CMPOrder Info: [id number] - MGOrder Info: [id number] - TSHOrder Info: [id number] - FEOrder Info: [id number] - FEROrder Info: [id number] - T4F Performed By: #### L 506.1001, L503.6550, L500.3400, L501.5200, L501.9520, L100.0100, L503.6030, L500.2500, L506.0400, L501.9985 #### [facility] [address] [facility] [place], [place], [id number] Thyroid Stim Hormone (TSH)on 03-30-2024 TSH 3.470 uIU/mL Normal 0.358-3.740 [facility] Comment on above: Order Comment: Order Date: 03/30/24Order Info: [id number] - CMPOrder Info: [id number] - MGOrder Info: [id number] - TSHOrder Info: [id number] - FEOrder Info: [id number] - FEROrder Info: 7 - T4F Performed By: #### L 506.1001, L503.6550, L500.3400, L501.5200, L501.9520, L100.0100, L503.6030, L500.2500, L506.0400, L501.9985 #### [facility] [address], [place], [id number] Basophil percentageOrdered B y: Abena Cardenas on 07-20-2023 Chloride [Moles/Vol] 107 mmol/L 98-107 [facility] Glucose [Mass/Vol] 112 mg/dL 74-106 [facility] Comment on above: Fasting Glucose resu lt from 100 to 125 mg/dL suggests IMPAIRED HOMEOSTASIS per A.D.A. criteria. Potassium [Moles/Vol] 3.6 mmol/L 3.5-5.1 [facility] Sodium [Moles/Vol] 142 mmol/L 136-145 [facility] - Chemistry and C hemistry - challengeOrdered By: Abena Cardenas on 07-20-2023 CO2 [Moles/Vol] 32.0 mmol/L 21.0-32.0 [facility] Urea nitrogen/Creatinine [Mass ratio] 15.5 mg/mg 10-20 [facility] No Panel InformationOrdered By: Abena Cardenas on 07-20-2023 Estimated GFR (MDRD) Amer 112 mL/min >60 [facility] Comment on above: GFR Calc Estimated GFR (MDRD) Non-Af Amer 93 mL/min >60 [facility] Comment on above: Non- GFR Calc Serum or plasma calcium don urement (mass/volume)Ordered By: Abena Cardenas on 07-20-2023 Calcium [Mass/Vol] 9.3 mg/dL 8.5-10.1 [facility] Serum or plasma creatinine m easurement (mass/volume)Ordered By: Abena Cardenas on 07-20-2023 Creatinine [Mass/Vol] 0.65 mg/dL 0.55-1.02 [facility] Comment on above: The validity of the calculated GFR & GFRAA in patients over 70 years has not been determined. Clinical correlation is essential. Serum or plasma urea nitroge n measurement (mass/volume)Ordered By: Abena Cardenas on 07-20-2023 Urea nitrogen [Mass/Vol] 10 mg/dL 7-18 [facility] Thin prep Papanicolaou smear with manual screeningOrdered By: Abena Cardenas on 07-20-2023 Thin prep Papanicolaou smear with manual screening 3 5-15 [facility] Basophil percentageOrdered B y: Abena Cardenas on 07-13-2023 Chloride [Moles/Vol] 109 mmol/L 98-107 [facility] Glucose [Mass/Vol] 149 mg/dL 74-106 [facility] Comment on above: Fasting Glucose resu lt greater than or equal to 126 mg/dL suggests DIABETES MELLITUS per A.D.A. criteria. Potassium [Moles/Vol] 3.7 mmol/L 3.5-5.1 [facility] Sodium [Moles/Vol] 142 mmol/L 136-145 [facility] - Chemistry and C hemistry - challengeOrdered By: Abena Cardenas on 07-13-2023 CO2 [Moles/Vol] 29.0 mmol/L 21.0-32.0 [facility] Natriuretic peptide B (Bld) [Mass/Vol] 498.6 pg/mL 0-100 [facility] Urea nitrogen/Creatinine [Mass ratio] 18.3 mg/mg 10-20 [facility] No Panel InformationOrdered By: Abena Cardenas on 07-13-2023 Estimated GFR (MDRD) Amer 136 mL/min >60 [facility] Comment on above: GFR Calc Estimated GFR (MDRD) Non-Af Amer 112 mL/min >60 [facility] Comment on above: Non- GFR Calc Serum or plasma calcium don urement (mass/volume)Ordered By: Abena Cardenas on 07-13-2023 Calcium [Mass/Vol] 8.9 mg/dL 8.5-10.1 [facility] Serum or plasma creatinine m easurement (mass/volume)Ordered By: Abena Cardenas on 07-13-2023 Creatinine [Mass/Vol] 0.55 mg/dL 0.55-1.02 [facility] Comment on above: The validity of the calculated GFR & GFRAA in patients over 70 years has not been determined. Clinical correlation is essential. Serum or plasma urea nitroge n measurement (mass/volume)Ordered By: Abena Cardenas on 07-13-2023 Urea nitrogen [Mass/Vol] 10 mg/dL 7-18 [facility] Thin prep Papanicolaou smear with manual screeningOrdered By: Abena Cardenas on 07-13-2023 Thin prep Papanicolaou smear with manual screening 4 5-15 [facility] Basophil percentageOrdered B y: Blue Lambert on 04-26-2023 Bilirubin [Mass/Vol] 4.60 mg/dL 0.20-1.00 [facility] Comment on above: For patients on eltr ombopag therapy, use of Dimension [place] TBIL is not recommended. Cholesterol [Mass/Vol] 80 mg/dL <200 [facility] Comment on above: <200 mg/dL Desirable 200-240 mg/dL Borderline >240 mg/dL High Risk Protein [Mass/Vol] 5.7 g/dL 6.4-8.2 [facility] Triglyceride [Mass/Vol] 41 mg/dL <[address] [facility] Comment on above: The drugs N-Acetylcy steine and Metamizole may falsely depress this assay.Serum Triglycerides Reference Interval Normal <150 mg/dL Borderline high 150 - 199 mg/dL High 200 - 499 mg/dL Very High > or = 500 mg/dL Direct bilirubinOrdered By: Blue Lambert on 04-26-2023 Bilirubin.direct [Mass/Vol] 0.77 mg/dL 0.00-0.30 [facility] - Chemistry and C hemistry - challengeOrdered By: Blue Lambert on 04-26-2023 ALP [Catalytic activity/Vol] 124 U/L 45-117 [facility] ALT [Catalytic activity/Vol] 22 U/L 13-56 [facility] Globulin (S) [Mass/Vol] 2.3 g/dL 2.2-4.[address] [facility] Serum or plasma albumin don urement (mass/volume)Ordered By: Blue Lambert on 04-26-2023 Albumin [Mass/Vol] 3.4 g/dL 3.2-5.0 [facility] Serum or plasma cholesterol in HDL measurement (mass/volume)Ordered By: Blue Lambert on 04-26-2023 Cholesterol in HDL [Mass/Vol] 45 mg/dL >40 [facility] Comment on above: The drugs N-Acetylcy steine and Metamizole may falsely depress this assay. Reference Range HDL <40 mg/dL Low HDL Cholesterol HDL >or= 60 mg/dL High HDL Cholesterol Serum or plasma cholesterol in VLDL measurement (mass/volume)Ordered By: Blue Lambert on 04-26-2023 Cholesterol in VLDL [Mass/Vol] 8 mg/dL 5-40 [facility] Serum or plasma low density lipoprotein (LDL) cholesterol measurement (mass/volume)Ordered By: Blue Lambert on 04-26-2023 Cholesterol in LDL [Mass/Vol] 27 mg/dL 0-130 [facility] Thin prep Papanicolaou smear with manual screeningOrdered By: Blue Lambert on 04-26-2023 Thin prep Papanicolaou smear with manual screening 22 U/L 15-37 [facility] Absolute lymphocyte countOrd ered By: Blue Lambert on 04-20-2023 Lymphocytes Auto (Unsp spec) [#/Vol] 2.92 10*3/uL 0.83-4.51 [facility] Basophil percentageOrdered B y: Blue Lambert on 04-20-2023 Basophils/100 WBC (Bld) 1.2 % 0-[address] [facility] Bilirubin [Mass/Vol] 4.40 mg/dL 0.20-1.00 [facility] Comment on above: For patients on eltr ombopag therapy, use of Dimension [place] TBIL is not recommended. Chloride [Moles/Vol] 107 mmol/L 98-107 [facility] Eosinophils/100 WBC (Bld) 1.6 % 0-5 [facility] Glucose [Mass/Vol] 101 mg/dL 74-106 [facility] Comment on above: Fasting Glucose resu lt from 100 to 125 mg/dL suggests IMPAIRED HOMEOSTASIS per A.D.A. criteria. Neutrophils (Bld) [#/Vol] 3.0 10*3/uL 2.0-7.7 [facility] Neutrophils/100 WBC (Bld) 40.4 % 47-70 [facility] Potassium [Moles/Vol] 3.6 mmol/L 3.5-5.1 [facility] Protein [Mass/Vol] 6.1 g/dL 6.4-8.2 [facility] Sodium [Moles/Vol] 142 mmol/L 136-145 [facility] WBC (Bld) [#/Vol] 7.5 10*3/uL 4.4-11.0 [facility] Blood erythrocytes count (nu mber/volume)Ordered By: Blue Lambert on 04-20-2023 RBC (Bld) [#/Vol] 3.94 10*6/uL 4.2-5.4 [facility] Blood hemoglobin measurement (mass/volume)Ordered By: Blue Lambert on 04-20-2023 Hemoglobin (Bld) [Mass/Vol] 12.8 g/dL 12.0-15.0 [facility] Blood lymphocytes/100 leukoc ytesOrdered By: Blue Lambert on 04-20-2023 Lymphocytes/100 WBC (Bld) 38.8 % 19-41 [facility] Blood monocytes/100 leukocyt esOrdered By: Blue Lambert on 04-20-2023 Monocytes/100 WBC (Bld) 17.7 % 0-[address] [facility] Blood platelet mean volumeOr dered By: Blue Lambert on 04-20-2023 Platelet mean volume (Bld) [Entitic vol] 11.3 fL 6.2-12.0 [facility] Blood poikilocytosis detecti on by light microscopyOrdered By: Blue Lambert on 04-20-2023 Poikilocytosis LM Ql (Bld) 1+ [facility] Determination of erythrocyte mean corpuscular volume (MCV)Ordered By: Blue Lambert on 04-20-2023 MCV (RBC) [Entitic vol] 98.5 fL 81-[address] [facility] Hematocrit Auto (Bld) [Volum e fraction]Ordered By: Blue Lambert on 04-20-2023 Hematocrit (Bld) [Volume fraction] 38.8 % 37-47 [facility] - Chemistry and C hemistry - challengeOrdered By: Blue Lambert on 04-20-2023 ALP [Catalytic activity/Vol] 137 U/L 45-117 [facility] ALT [Catalytic activity/Vol] 23 U/L 13-56 [facility] CO2 [Moles/Vol] 29.0 mmol/L 21.0-32.0 [facility] Free T4 [Mass/Vol] 1.14 ng/dL 0.76-1.46 [facility] Globulin (S) [Mass/Vol] 2.4 g/dL 2.2-4.2 [facility] Magnesium [Mass/Vol] 2.3 mg/dL 1.6-2.6 [facility] Urea nitrogen/Creatinine [Mass ratio] 16.9 mg/mg 10-20 [facility] - Hematology and Cell countsOrdered By: Blue Lambert on 04-20-2023 Erythrocyte distribution width (RBC) [Entitic vol] 97.0 fL 35.1-43.9 [facility] Erythrocyte distribution width (RBC) [Ratio] 27.2 % 11.6-14.6 [facility] Immature granulocytes/100 WBC (Bld) 0.300 % 0.0-0.9 [facility] Comment on above: IG% - Immature Granu locytes (promyelocytes, myelocytes and metamyelocytes) > 1% indicates that a LEFT SHIFT is Present. MCH (RBC) [Entitic mass] 32.5 pg 27.0-32.0 [facility] Nucleated RBC/100 WBC (Bld) [Ratio] 0 % 0-5 [facility] MCHC Auto (RBC) [Mass/Vol]Or dered By: Blue Lambert on 04-20-2023 MCHC (RBC) [Mass/Vol] 33.0 g/dL 32-36 [facility] No Panel InformationOrdered By: Blue Lambert on 04-20-2023 Estimated GFR (MDRD) Amer 124 mL/min >60 [facility] Comment on above: GFR Calc Estimated GFR (MDRD) Non-Af Amer 103 mL/min >60 [facility] Comment on above: Non- GFR Calc Thyroid Stimulating Hormone (TSH) 5.36 uIU/mL 0.358-3.74 [facility] Platelets bldOrdered By: Rinku Lambert on 04-20-2023 Platelets (Bld) [#/Vol] 202 10*3/uL 150-450 [facility] Serum or plasma albumin don urement (mass/volume)Ordered By: Blue Lambert on 04-20-2023 Albumin [Mass/Vol] 3.7 g/dL 3.2-5.0 [facility] Serum or plasma albumin/glob ulin mass ratioOrdered By: Blue Lambert on 04-20-2023 Albumin/Globulin [Mass ratio] 1.5 {ratio} 0.9-2.4 [facility] Serum or plasma calcium don urement (mass/volume)Ordered By: Blue Lambert on 04-20-2023 Calcium [Mass/Vol] 8.6 mg/dL 8.5-10.1 [facility] Serum or plasma creatinine m easurement (mass/volume)Ordered By: Blue Lambert on 04-20-2023 Creatinine [Mass/Vol] 0.59 mg/dL 0.55-1.02 [facility] Comment on above: The validity of the calculated GFR & GFRAA in patients over 70 years has not been determined. Clinical correlation is essential. Serum or plasma urea nitroge n measurement (mass/volume)Ordered By: Blue Lambert on 04-20-2023 Urea nitrogen [Mass/Vol] 10 mg/dL 7-18 [facility] Target cell detectionOrdered By: Blue Lambert on 04-20-2023 Target cells LM Ql (Bld) 2+ [facility] Thin prep Papanicolaou smear with manual screeningOrdered By: Blue Lambert on 04-20-2023 Thin prep Papanicolaou smear with manual screening 23 U/L 15-37 [facility] Thin prep Papanicolaou smear with manual screening 6 5-15 [facility] Whole blood hemoglobin A1c/t otal hemoglobin ratio (mass fraction)Ordered By: Blue Lambert on 04-20-2023 HbA1c (Bld) [Mass fraction] 5.5 % 3.8-5.6 [facility] Comment on above: Normal < 5.7 % Predi abetic 5.7 - 6.4 % Diabetic >or= 6.5 % Please note range changes. Laboratory - Chemistry and C hemistry - challengeOrdered By: Blue Lambert on 01-19-2023 Free T4 [Mass/Vol] 1.26 ng/dL 0.76-1.46 [facility] No Panel InformationOrdered By: Blue Lambert on 01-19-2023 Thyroglobulin Antibody < 1.0 IU/mL 0.0-0.9 [facility] Comment on above: Thyroglobulin Antibo dy measured by Laverne [employer] Thyroglobulin Level 20.1 ng/mL 1.5-38.5 [facility] Comment on above: According to the [facility] [employer] of Clinical Biochemistry,the reference interval for Thyroglobulin (TG) should berelated to euthyroid patients and not for patients whounderwent thyroidectomy. TG reference intervals for thesepatients depend on the residual mass of the thyroid tissueleft after surgery. Establishing a post-operative baselineis recommended. The assay limit of quantitation is 0.1ng/mLThyroglobulin measured by Laverne Lincoln [employer] Serum or plasma thyroperoxid ase antibody assay (units/volume)Ordered By: Blue Lambert on 01-19-2023 TPO Ab Qn [IU]/mL 0-34 [facility] Comment on above: Performed at: [address] [id number] Director: Kevin Condon PhD, Phone: [phone] Basophil percentageOrdered B y: Abena Cardenas on 01-18-2023 Chloride [Moles/Vol] 107 mmol/L 98-107 [facility] Glucose [Mass/Vol] 137 mg/dL 74-106 [facility] Comment on above: Fasting Glucose resu lt greater than or equal to 126 mg/dL suggests DIABETES MELLITUS per A.D.A. criteria. Potassium [Moles/Vol] 3.8 mmol/L 3.5-5.1 [facility] Sodium [Moles/Vol] 143 mmol/L 136-145 [facility] - Chemistry and C hemistry - challengeOrdered By: Abena Cardenas on 01-18-2023 CO2 [Moles/Vol] 32.0 mmol/L 21.0-32.0 [facility] Urea nitrogen/Creatinine [Mass ratio] 12.9 mg/mg 10-20 [facility] No Panel InformationOrdered By: Abena Cardenas on 01-18-2023 Estimated GFR (MDRD) Amer 102 mL/min >60 [facility] Comment on above: GFR Calc Estimated GFR (MDRD) Non-Af Amer 85 mL/min >60 [facility] Comment on above: Non- GFR Calc Serum or plasma calcium don urement (mass/volume)Ordered By: Abena Cardenas on 01-18-2023 Calcium [Mass/Vol] 9.0 mg/dL 8.5-10.1 [facility] Serum or plasma creatinine m easurement (mass/volume)Ordered By: Abena Cardenas on 01-18-2023 Creatinine [Mass/Vol] 0.70 mg/dL 0.55-1.02 [facility] Comment on above: The validity of the calculated GFR & GFRAA in patients over 70 years has not been determined. Clinical correlation is essential. Serum or plasma urea nitroge n measurement (mass/volume)Ordered By: Abena Cardenas on 01-18-2023 Urea nitrogen [Mass/Vol] 9 mg/dL 7-18 [facility] Thin prep Papanicolaou smear with manual screeningOrdered By: Abena Cardenas on 01-18-2023 Thin prep Papanicolaou smear with manual screening 4 - [facility] Absolute lymphocyte countOrd ered By: Blue Lambert on 01-10-2023 Lymphocytes Auto (Unsp spec) [#/Vol] 3.02 10*3/uL 0.83-4.51 [facility] Basophil percentageOrdered B y: Blue Lambert on 01-10-2023 Basophils/100 WBC (Bld) 0.9 % 0-[address] [facility] Bilirubin [Mass/Vol] 4.40 mg/dL 0.20-1.00 [facility] Comment on above: For patients on eltr ombopag therapy, use of Dimension [place] TBIL is not recommended. Chloride [Moles/Vol] 103 mmol/L 98-107 [facility] Eosinophils/100 WBC (Bld) 1.6 % 0-5 [facility] Glucose [Mass/Vol] 125 mg/dL 74-106 [facility] Comment on above: Fasting Glucose resu lt from 100 to 125 mg/dL suggests IMPAIRED HOMEOSTASIS per A.D.A. criteria. Neutrophils (Bld) [#/Vol] 4.1 10*3/uL 2.0-7.7 [facility] Neutrophils/100 WBC (Bld) 47.3 % 47-70 [facility] Potassium [Moles/Vol] 3.2 mmol/L 3.5-5.1 [facility] Protein [Mass/Vol] 6.2 g/dL 6.4-8.2 [facility] Sodium [Moles/Vol] 137 mmol/L 136-145 [facility] WBC (Bld) [#/Vol] 8.7 10*3/uL 4.4-11.0 [facility] Blood erythrocytes count (nu mber/volume)Ordered By: Blue Lambert on 01-10-2023 RBC (Bld) [#/Vol] 3.82 10*6/uL 4.2-5.4 [facility] Blood hemoglobin measurement (mass/volume)Ordered By: Blue Lambert on 01-10-2023 Hemoglobin (Bld) [Mass/Vol] 12.9 g/dL 12.0-15.0 [facility] Blood lymphocytes/100 leukoc ytesOrdered By: Blue Lambert on 01-10-2023 Lymphocytes/100 WBC (Bld) 34.9 % 19-41 [facility] Blood monocytes/100 leukocyt esOrdered By: Blue Lambert on 01-10-2023 Monocytes/100 WBC (Bld) 15.0 % 0-[address] [facility] Blood platelet mean volumeOr dered By: Blue Lambert on 01-10-2023 Platelet mean volume (Bld) [Entitic vol] 10.3 fL 6.2-12.0 [facility] Determination of erythrocyte mean corpuscular volume (MCV)Ordered By: Blue Lambert on 01-10-2023 MCV (RBC) [Entitic vol] 98.4 fL 81-[address] [facility] Hematocrit Auto (Bld) [Volum e fraction]Ordered By: Blue Lambert on 01-10-2023 Hematocrit (Bld) [Volume fraction] 37.6 % 37-47 [facility] Laboratory - Chemistry and C hemistry - challengeOrdered By: Blue Lambert on 01-10-2023 ALP [Catalytic activity/Vol] 125 U/L 45-117 [facility] ALT [Catalytic activity/Vol] 24 U/L 13-56 [facility] CO2 [Moles/Vol] 28.0 mmol/L 21.0-32.0 [facility] Cobalamin (Vitamin B12) [Mass/Vol] 876 pg/mL 211-911 [facility] Globulin (S) [Mass/Vol] 2.4 g/dL 2.2-4.2 [facility] Magnesium [Mass/Vol] 2.0 mg/dL 1.6-2.6 [facility] Urea nitrogen/Creatinine [Mass ratio] 16.1 mg/mg 10-20 [facility] Laboratory - Chemistry and C hemistry - challengeOrdered By: Abena Cardenas on 01-10-2023 Natriuretic peptide B (Bld) [Mass/Vol] 470.8 pg/mL 0-100 [facility] Laboratory - Hematology and Cell countsOrdered By: Blue Lambert on 01-10-2023 Anisocytosis Ql (Bld) 2+ [facility] Erythrocyte distribution width (RBC) [Entitic vol] 89.5 fL 35.1-43.9 [facility] Erythrocyte distribution width (RBC) [Ratio] 24.5 % 11.6-14.6 [facility] Immature granulocytes/100 WBC (Bld) 0.300 % 0.0-0.9 [facility] Comment on above: IG% - Immature Granu locytes (promyelocytes, myelocytes and metamyelocytes) > 1% indicates that a LEFT SHIFT is Present. MCH (RBC) [Entitic mass] 33.8 pg 27.0-32.0 [facility] Nucleated RBC/100 WBC (Bld) [Ratio] 0 % 0-5 [facility] MCHC Auto (RBC) [Mass/Vol]Or dered By: Blue Lambert on 01-10-2023 MCHC (RBC) [Mass/Vol] 34.3 g/dL 32-36 [facility] No Panel InformationOrdered By: Blue Lambert on 01-10-2023 Estimated GFR (MDRD) Amer 117 mL/min >60 [facility] Comment on above: GFR Calc Estimated GFR (MDRD) Non-Af Amer 97 mL/min >60 [facility] Comment on above: Non- GFR Calc Thyroid Stimulating Hormone (TSH) 4.96 uIU/mL 0.358-3.74 [facility] Vitamin D 25-Hydroxy 61.9 ng/mL [facility] Comment on above: Vitamin D 25(OH) Sta tus Range Deficiency <20 ng/mL (50nmol/L) Insufficiency 20 - 30 ng/mL (50 - 75 nmol/L) Sufficiency 30 - 100 ng/mL (75 - 250 nmol/L) Toxicity >100 ng/mL (>250 nmol/L) Platelets bldOrdered By: Rinku Lambert on 01-10-2023 Platelets (Bld) [#/Vol] 221 10*3/uL 150-450 [facility] Serum or plasma albumin don urement (mass/volume)Ordered By: Blue Lambert on 01-10-2023 Albumin [Mass/Vol] 3.8 g/dL 3.2-5.0 [facility] Serum or plasma albumin/glob ulin mass ratioOrdered By: Blue Lambert on 01-10-2023 Albumin/Globulin [Mass ratio] 1.6 {ratio} 0.9-2.4 [facility] Serum or plasma calcium don urement (mass/volume)Ordered By: Blue Lambert on 01-10-2023 Calcium [Mass/Vol] 9.2 mg/dL 8.5-10.1 [facility] Serum or plasma creatinine m easurement (mass/volume)Ordered By: Blue Lambert on 01-10-2023 Creatinine [Mass/Vol] 0.62 mg/dL 0.55-1.02 [facility] Comment on above: The validity of the calculated GFR & GFRAA in patients over 70 years has not been determined. Clinical correlation is essential. Serum or plasma urea nitroge n measurement (mass/volume)Ordered By: Blue Lambert on 01-10-2023 Urea nitrogen [Mass/Vol] 10 mg/dL 7-18 [facility] Thin prep Papanicolaou smear with manual screeningOrdered By: Blue Lambert on 01-10-2023 Thin prep Papanicolaou smear with manual screening 24 U/L 15 [facility] Thin prep Papanicolaou smear with manual screening 6 5- [facility] Whole blood hemoglobin A1c/t otal hemoglobin ratio (mass fraction)Ordered By: Blue Lambert on 01-10-2023 HbA1c (Bld) [Mass fraction] 5.7 % 3.8-5.6 [facility] Comment on above: Normal < 5.7 % Predi abetic 5.7 - 6.4 % Diabetic >or= 6.5 % Please note range changes. Basophil percentageon 2021 Bilirubin [Mass/Vol] 4.20 mg/dL 0.20-1.00 [facility] Work Phone: Comment on above: For patients on eltr ombopag therapy, use of Dimension [place] TBIL is not recommended. Chloride [Moles/Vol] 103 mmol/L 98-107 [facility] Work Phone: Glucose [Mass/Vol] 99 mg/dL 74-106 [facility] Work Phone: Potassium [Moles/Vol] 3.7 mmol/L 3.5-5.1 [facility] Work Phone: Protein [Mass/Vol] 6.3 g/dL 6.4-8.2 [facility] Work Phone: Sodium [Moles/Vol] 138 mmol/L 136-145 [facility] Work Phone: Laboratory - Chemistry and C hemistry - challengeon 01-28-2022 ALP [Catalytic activity/Vol] 90 U/L 45-117 [facility] Work Phone: ALT [Catalytic activity/Vol] 25 U/L 13-56 [facility] Work Phone: CO2 [Moles/Vol] 29.0 mmol/L 21.0-32.0 [facility] Work Phone: Globulin (S) [Mass/Vol] 2.5 g/dL 2.2-4.[address] [facility] Work Phone: Urea nitrogen/Creatinine [Mass ratio] 13.5 mg/mg 10-20 [facility] Work Phone: No Panel Informationon 01-28 Estimated GFR (MDRD) Amer 124 mL/min >60 [facility] Work Phone: Comment on above: GFR Calc Estimated GFR (MDRD) Non-Af Amer 103 mL/min >60 [facility] Work Phone: Comment on above: Non- GFR Calc Serum or plasma albumin don urement (mass/volume)on 01-28-2022 Albumin [Mass/Vol] 3.8 g/dL 3.2-5.0 [facility] Work Phone: Serum or plasma albumin/glob ulin mass ratioon 01-28-2022 Albumin/Globulin [Mass ratio] 1.5 {ratio} 0.9-2.4 [facility] Work Phone: Serum or plasma calcium don urement (mass/volume)on 01-28-2022 Calcium [Mass/Vol] 9.1 mg/dL 8.5-10.1 [facility] Work Phone: Serum or plasma creatinine m easurement (mass/volume)on 01-28-2022 Creatinine [Mass/Vol] 0.59 mg/dL 0.55-1.02 [facility] Work Phone: Comment on above: The validity of the calculated GFR & GFRAA in patients over 70 years has not been determined. Clinical correlation is essential. Serum or plasma urea nitroge n measurement (mass/volume)on 01-28-2022 Urea nitrogen [Mass/Vol] 8 mg/dL 7-18 [facility] Work Phone: Thin prep Papanicolaou smear with manual screeningon 01-28-2022 Thin prep Papanicolaou smear with manual screening 16 U/L 15-37 [facility] Work Phone: Thin prep Papanicolaou smear with manual screening 6 5-15 [facility] Work Phone: Whole blood hemoglobin A1c/t otal hemoglobin ratio (mass fraction)on 01-28-2022 HbA1c (Bld) [Mass fraction] 6.0 % 3.8-5.6 [facility] Work Phone: Comment on above: Normal < 5.7 % Predi abetic 5.7 - 6.4 % Diabetic >or= 6.5 % Please note range changes. Basophil percentageon 2021 Chloride [Moles/Vol] 105 mmol/L 98-107 [facility] Work Phone: Glucose [Mass/Vol] 139 mg/dL 74-106 [facility] Work Phone: Comment on above: Fasting Glucose resu lt greater than or equal to 126 mg/dL suggests DIABETES MELLITUS per A.D.A. criteria. Potassium [Moles/Vol] 3.6 mmol/L 3.5-5.1 [facility] Work Phone: Sodium [Moles/Vol] 140 mmol/L 136-145 [facility] Work Phone: Laboratory - Chemistry and C hemistry - challengeon 01-18-2022 CO2 [Moles/Vol] 28.0 mmol/L 21.0-32.0 [facility] Work Phone: Magnesium [Mass/Vol] 2.3 mg/dL 1.6-2.6 [facility] Work Phone: Urea nitrogen/Creatinine [Mass ratio] 16.8 mg/mg 10-20 [facility] Work Phone: No Panel Informationon 01-18 Estimated GFR (MDRD) Amer 111 mL/min >60 [facility] Work Phone: Comment on above: GFR Calc Estimated GFR (MDRD) Non-Af Amer 91 mL/min >60 [facility] Work Phone: Comment on above: Non- GFR Calc Serum or plasma calcium don urement (mass/volume)on 01-18-2022 Calcium [Mass/Vol] 9.7 mg/dL 8.5-10.1 [facility] Work Phone: Serum or plasma creatinine m easurement (mass/volume)on 01-18-2022 Creatinine [Mass/Vol] 0.66 mg/dL 0.55-1.02 [facility] Work Phone: Comment on above: The validity of the calculated GFR & GFRAA in patients over 70 years has not been determined. Clinical correlation is essential. Serum or plasma urea nitroge n measurement (mass/volume)on 01-18-2022 Urea nitrogen [Mass/Vol] 11 mg/dL 7-18 [facility] Work Phone: Thin prep Papanicolaou smear with manual screeningon 01-18-2022 Thin prep Papanicolaou smear with manual screening 7 5-15 [facility] Work Phone: Absolute lymphocyte counton 12-30-2021 Lymphocytes Auto (Unsp spec) [#/Vol] 3.58 10*3/uL 0.83-4.51 [facility] Work Phone: Basophil percentageon 2021 Basophils/100 WBC (Bld) 1.1 % 0-[address] [facility] Work Phone: Bilirubin [Mass/Vol] 4.40 mg/dL 0.20-1.00 [facility] Work Phone: Comment on above: For patients on eltr ombopag therapy, use of Dimension [place] TBIL is not recommended. Chloride [Moles/Vol] 109 mmol/L 98-107 [facility] Work Phone: Cholesterol [Mass/Vol] 108 mg/dL <200 [facility] Work Phone: Comment on above: <200 mg/dL Desirable 200-240 mg/dL Borderline >240 mg/dL High Risk Eosinophils/100 WBC (Bld) 1.5 % 0-5 [facility] Work Phone: Glucose [Mass/Vol] 110 mg/dL 74-106 [facility] Work Phone: Comment on above: Fasting Glucose resu lt from 100 to 125 mg/dL suggests IMPAIRED HOMEOSTASIS per A.D.A. criteria. Neutrophils (Bld) [#/Vol] 4.1 10*3/uL 2.0-7.7 [facility] Work Phone: Neutrophils/100 WBC (Bld) 44.6 % 47-70 [facility] Work Phone: Potassium [Moles/Vol] 3.8 mmol/L 3.5-5.1 [facility] Work Phone: Protein [Mass/Vol] 6.5 g/dL 6.4-8.2 [facility] Work Phone: Sodium [Moles/Vol] 140 mmol/L 136-145 [facility] Work Phone: Triglyceride [Mass/Vol] 59 mg/dL <[address] [facility] Work Phone: Comment on above: The drugs N-Acetylcy steine and Metamizole may falsely depress this assay.Serum Triglycerides Reference Interval Normal <150 mg/dL Borderline high 150 - 199 mg/dL High 200 - 499 mg/dL Very High > or = 500 mg/dL WBC (Bld) [#/Vol] 9.2 10*3/uL 4.4-11.0 [facility] Work Phone: Blood erythrocytes count (nu mber/volume)on 12-30-2021 RBC (Bld) [#/Vol] 4.04 10*6/uL 4.2-5.4 [facility] Work Phone: Blood hemoglobin measurement (mass/volume)on 12-30-2021 Hemoglobin (Bld) [Mass/Vol] 13.5 g/dL 12.0-15.0 [facility] Work Phone: Blood lymphocytes/100 leukoc yteson 12-30-2021 Lymphocytes/100 WBC (Bld) 39.1 % 19-41 [facility] Work Phone: Blood monocytes/100 leukocyt eson 12-30-2021 Monocytes/100 WBC (Bld) 13.5 % 0-[address] [facility] Work Phone: Blood platelet mean volumeon 12-30-2021 Platelet mean volume (Bld) [Entitic vol] 10.6 fL 6.2-12.0 [facility] Work Phone: Determination of erythrocyte mean corpuscular volume (MCV)on 12-30-2021 MCV (RBC) [Entitic vol] 97.5 fL 81-[address] [facility] Work Phone: Hematocrit Auto (Bld) [Volum e fraction]on 12-30-2021 Hematocrit (Bld) [Volume fraction] 39.4 % 37-47 [facility] Work Phone: Laboratory - Chemistry and C hemistry - challengeon 12-30-2021 ALP [Catalytic activity/Vol] 90 U/L 45-117 [facility] Work Phone: ALT [Catalytic activity/Vol] 24 U/L 13-56 [facility] Work Phone: CO2 [Moles/Vol] 25.0 mmol/L 21.0-32.0 [facility] Work Phone: Cobalamin (Vitamin B12) [Mass/Vol] 867 pg/mL 211-911 [facility] Work Phone: Globulin (S) [Mass/Vol] 2.5 g/dL 2.2-4.[address] [facility] Work Phone: Magnesium [Mass/Vol] 2.3 mg/dL 1.6-2.6 [facility] Work Phone: Urea nitrogen/Creatinine [Mass ratio] 14.3 mg/mg 10-20 [facility] Work Phone: Laboratory - Hematology and Cell countson 12-30-2021 Anisocytosis Ql (Bld) 1+ [facility] Work Phone: Erythrocyte distribution width (RBC) [Entitic vol] 86.4 fL 35.1-43.9 [facility] Work Phone: Erythrocyte distribution width (RBC) [Ratio] 23.7 % 11.6-14.6 [facility] Work Phone: Immature granulocytes/100 WBC (Bld) 0.200 % 0.0-0.9 [facility] Work Phone: Comment on above: IG% - Immature Granu locytes (promyelocytes, myelocytes and metamyelocytes) > 1% indicates that a LEFT SHIFT is Present. MCH (RBC) [Entitic mass] 33.4 pg 27.0-32.0 [facility] Work Phone: Nucleated RBC/100 WBC (Bld) [Ratio] 0 % 0-5 [facility] Work Phone: MCHC Auto (RBC) [Mass/Vol]on 12-30-2021 MCHC (RBC) [Mass/Vol] 34.3 g/dL 32-36 [facility] Work Phone: No Panel Informationon 12-30 Estimated GFR (MDRD) Amer 116 mL/min >60 [facility] Work Phone: Comment on above: GFR Calc Estimated GFR (MDRD) Non-Af Amer 96 mL/min >60 [facility] Work Phone: Comment on above: Non- GFR Calc Thyroid Stimulating Hormone (TSH) 3.63 uIU/mL 0.358-3.74 [facility] Work Phone: Vitamin D 25-Hydroxy 63.7 ng/mL [facility] Work Phone: Comment on above: Vitamin D 25(OH) Sta tus Range Deficiency <20 ng/mL (50nmol/L) Insufficiency 20 - 30 ng/mL (50 - 75 nmol/L) Sufficiency 30 - 100 ng/mL (75 - 250 nmol/L) Toxicity >100 ng/mL (>250 nmol/L) Platelets bldon 12-30-2021 Platelets (Bld) [#/Vol] 222 10*3/uL 150-450 [facility] Work Phone: Serum or plasma albumin don urement (mass/volume)on 12-30-2021 Albumin [Mass/Vol] 4.0 g/dL 3.2-5.0 [facility] Work Phone: Serum or plasma albumin/glob ulin mass ratioon 12-30-2021 Albumin/Globulin [Mass ratio] 1.6 {ratio} 0.9-2.4 [facility] Work Phone: Serum or plasma calcium don urement (mass/volume)on 12-30-2021 Calcium [Mass/Vol] 9.5 mg/dL 8.5-10.1 [facility] Work Phone: Serum or plasma cholesterol in HDL measurement (mass/volume)on 12-30-2021 Cholesterol in HDL [Mass/Vol] 48 mg/dL >40 [facility] Work Phone: Comment on above: The drugs N-Acetylcy steine and Metamizole may falsely depress this assay. Reference Range HDL <40 mg/dL Low HDL Cholesterol HDL >or= 60 mg/dL High HDL Cholesterol Serum or plasma cholesterol in VLDL measurement (mass/volume)on 12-30-2021 Cholesterol in VLDL [Mass/Vol] 12 mg/dL 5-40 [facility] Work Phone: Serum or plasma creatinine m easurement (mass/volume)on 12-30-2021 Creatinine [Mass/Vol] 0.63 mg/dL 0.55-1.02 [facility] Work Phone: Comment on above: The validity of the calculated GFR & GFRAA in patients over 70 years has not been determined. Clinical correlation is essential. Serum or plasma low density lipoprotein (LDL) cholesterol measurement (mass/volume)on 12-30-2021 Cholesterol in LDL [Mass/Vol] 48 mg/dL 0-130 [facility] Work Phone: Serum or plasma urea nitroge n measurement (mass/volume)on 12-30-2021 Urea nitrogen [Mass/Vol] 9 mg/dL 7-18 [facility] Work Phone: Thin prep Papanicolaou smear with manual screeningon 12-30-2021 Thin prep Papanicolaou smear with manual screening 20 U/L 15-37 [facility] Work Phone: Thin prep Papanicolaou smear with manual screening 6 5-15 [facility] Work Phone: Whole blood hemoglobin A1c/t otal hemoglobin ratio (mass fraction)on 12-30-2021 HbA1c (Bld) [Mass fraction] 6.0 % 3.8-5.6 [facility] Work Phone: Comment on above: Normal < 5.7 % Predi abetic 5.7 - 6.4 % Diabetic >or= 6.5 % Please note range changes. OBSOLETEon 05-28-2017 OBSOLETE Refill (FAMPWS) MAGGIE BANDA RA ([id number]) 1935 [facility] Time Provider Lekyfrzveb06/30/17 CHULA CASTILLO FAMPWS During your visit today, we recorded the following information about you:Yumiko Andrade Ma 05/31/2017 11:39 AM SignedRX INSTRUCTIONS:Pharmacy initiated this request. No need to notify patient.Last OV: 08/31/16 with PCPLast refill: 11/29/16 With 90 and 1 refillsLast oarrs report completed: N/A PLEASE REVIEW ON EPICFollow up: No F/U arden scheduledYumiko Andrade Shayna Castillo MD 05/31/2017 1:26 PM SignedThe following approved medication requests have been transmitted electronically.OK 1 fill. She'll be due for appt by August.Is patient planning to follow Dr. Castillo to [place] or need to establish withnew physician in [place]?Lab is ordered to have drawn prior to appt.Refill on 05/28/17-BASIC METABOLIC PNL-HGB [id number] Prescriptions Disp Refills lisinopril-hydrochlorothi azide (PRINZIDE,ZESTORETIC) 10-12.5 mg per tablet 90tablet 0 Sig: TAKE 1 TABLET DAILY DAY: No Authorizing Provider: CHULA CASTILLO MDLori Parsons LPN 05/31/2017 3:49 PM SignedPt notified, she states she will est with a provider in [place]. Thefollowing approved medication requests have been transmitted [...] 0 BASIC METABOLIC PNL [SQBMP] Order #: [id number] FUTURE HGB A1C [[id number]] Order #: [id number] FUTUREPrescriptions as of 05/28/2017 Sig: LISINOPRIL 10 MG-HYDROCHLOROT* TAKE 1 TABLET DAILY AMLODIPINE 2.5 MG TABLET Take 1 tablet by mouth once d* FLUTICASONE 50 MCG/ACTUATION * Use 1 [place] in each nostril o* TUMS 500 ORAL [...] Status:Closed by XAVIER WETZEL LPN on 05/31/17 [facility] CNOVon 05-07-2017 CNOV Office Visit (UCWSTR) JOLIEBETHANIEA RA David ([id number]) 1935 FDate Time Provider Usjyipjvuf98/9/17 10:45 AM EJ ROBERTSON WSTR During your visit today, we recorded the [...] (FLONASE) 50 mcg/actuation nasal spray Use 1 [place] in each nostrilonce daily. Rinse mouth after [...] 69.8 kg(153 lb 12.8 oz) BMI 23.39 kg/e4WOKHXKWT EXAM: GEN: mildly ill appearing HEENT: PERRL, [...] CAPSULEContinue supportive gargles, declines saline rinse.Ej Robertson, [facility] Provider: SELF [200]Allergies As of Date: 05/07/2017 [...] twice* FLUTICASONE 50 MCG/ACTUATION * Use 1 [place] in each nostril o* TUMS 500 ORAL [...] Status:Closed by EJ ROBERTSON MD on 05/07/17 [facility] PROGRESSon 05-07-2017 PROGRESS HNO ID: [id number] thor: Ej Pollockervice: (none)Author Type: PhysicianType: Progress [...] (FLONASE) 50 mcg/actuation nasal spray Use 1 [place] in eachnostril once daily. Rinse mouth after [...] kg (153 lb 12.8 oz) BMI 23.39 kg/[id number] EXAM: GEN: mildly ill appearing HEENT: PERRL, [...] supportive gargles, declines saline rinse.Ej Robertson MD [facility] OBSOLETEon 11-28-2016 OBSOLETE Refill (FAMPWS) MAGGIE BANDA RA ([id number]) 1935 [facility] Time Provider Department11/28/16 CHULA CASTILLO FAMPWS During your visit today, we recorded the following information about you:Danica Mancuso PharmD 11/29/2016 2:30 PM SignedPharmacist Refill Authorization ReviewName: Ananth BandaMRN: [id number]: 11/29/2016Time: 2:21 PMRefill authorization request(s) received via [...] (FLONASE) 50 mcg/actuation nasal spray Use 1 [place] in each nostrilonce daily. Rinse mouth after [...] d* FLUTICASONE 50 MCG/ACTUATION * Use 1 [place] in each nostril o* TUMS 500 ORAL [...] Status:Closed by SUMIT (PHARMACIST)DANICA on 11/29/16 Normal [facility] Vital Signs Date Time Vital Sign Value Performing Clinician Faci lity 02-13-2025 10:59-0400 Body height 172.[address] Blue Lambert MD Work Phone: [facility] 02-13-2025 10:59-0400 Diastolic blood pressure 50 mm[Hg] Dr. Blue Lambert MD Work Phone: [facility] 02-13-2025 10:59-0400 Systolic blood pressure 128 mm[Hg] Dr. Blue Lambert MD Work Phone: [facility] 02-13-2025 10:53-0400 Body mass index (BMI) [Ratio] 36.1 kg/m2 Dr. Blue Lambert MD Work Phone: [facility] 02-13-2025 10:53-0400 Body weight 107.[address] Blue Lambert MD Work Phone: [facility] 02-13-2025 10:53-0400 Diastolic blood pressure 82 mm[Hg] Dr. Blue Lambert MD Work Phone: [facility] 02-13-2025 10:53-0400 Heart rate 86 /min Dr. Blue Lambert MD Work Phone: [facility] 02-13-2025 10:53-0400 Respiratory rate 18 /min Dr. Blue Lambert MD Work Phone: [facility] 02-13-2025 10:53-0400 SaO2% (BldA) [Mass fraction] 98 % Dr. Blue Lambert MD Work Phone: 8(299)619-069850 [place] [address] 02-13-2025 10:53-0400 Systolic blood pressure 151 mm[Hg] Dr. Blue Lambert MD Work Phone: [facility] 11-26-2024 09:14-0400 Body height 172.[address] Blue Lambert MD Work Phone: [facility] 11-26-2024 09:14-0400 Body mass index (BMI) [Ratio] 26.3 kg/m2 Dr. Blue Lambert MD Work Phone: [facility] 11-26-2024 09:14-0400 Body weight 78.[address] Blue Lambert MD Work Phone: [facility] 11-26-2024 09:14-0400 Diastolic blood pressure 81 mm[Hg] Dr. Blue Lambert MD Work Phone: [facility] 11-26-2024 09:14-0400 Heart rate 80 /min Dr. Blue Lambert MD Work Phone: [facility] 11-26-2024 09:14-0400 Respiratory rate 17 /min Dr. Blue Lambert MD Work Phone: 7(485)892-707350 [place] [address] 11-26-2024 09:14-0400 SaO2% (BldA) [Mass fraction] 94 % Dr. Blue Lambert MD Work Phone: 0(628)888-617650 [place] [address] 11-26-2024 09:14-0400 Systolic blood pressure 155 mm[Hg] Dr. Blue Lambert MD Work Phone: 2(203)398-755156 [place] [address] 11-13-2024 07:08-0400 Body mass index (BMI) [Ratio] 25.5 kg/m2 Dr. Blue Lambert MD Work Phone: 0(799)533-782856 [place] [address] 11-13-2024 07:08-0400 Body weight 76.[address] Blue Lambert MD Work Phone: 9(402)302-926456 [place] [address] 11-13-2024 07:08-0400 Diastolic blood pressure 78 mm[Hg] Dr. Blue Lambert MD Work Phone: 2(153)194-140756 [place] [address] 11-13-2024 07:08-0400 Heart rate 77 /min Dr. Blue Lambert MD Work Phone: 8(999)986-062956 [place] [address] 11-13-2024 07:08-0400 Respiratory rate 18 /min Dr. Blue Lambert MD Work Phone: 8(545)384-722856 [place] [address] 11-13-2024 07:08-0400 SaO2% (BldA) [Mass fraction] 97 % Dr. Blue Lambert MD Work Phone: 7(864)351-881356 [place] [address] 11-13-2024 07:08-0400 Systolic blood pressure 144 mm[Hg] Dr. Blue Lambert MD Work Phone: 7(243)010-821756 [place] [address] 09-24-2024 07:33-0400 Body mass index (BMI) [Ratio] 27.2 kg/m2 Dr. Blue Lambert MD Work Phone: 7(918)510-721456 [place] [address] 09-24-2024 07:33-0400 Body weight 81.[address] Blue Lambert MD Work Phone: 5(339)613-861356 [place] [address] 09-24-2024 07:33-0400 Diastolic blood pressure 82 mm[Hg] Dr. Blue Lambert MD Work Phone: 4(238)647-169450 [place] [address] 09-24-2024 07:33-0400 Heart rate 86 /min Dr. Blue Lambert MD Work Phone: 0(776)561-106356 [place] [address] 09-24-2024 07:33-0400 Respiratory rate 18 /min Dr. Blue Lambert MD Work Phone: 4(144)930-375856 [place] [address] 09-24-2024 07:33-0400 SaO2% (BldA) [Mass fraction] 97 % Dr. Blue Lambert MD Work Phone: 5(229)726-265256 [place] [address] 09-24-2024 07:33-0400 Systolic blood pressure 121 mm[Hg] Dr. Blue Lambert MD Work Phone: 5(574)680-282656 [place] [address] 08-14-2024 14:46-0400 Diastolic blood pressure 64 mm[Hg] Dr. Blue Lambert MD Work Phone: 5(603)438-758656 [place] [address] 08-14-2024 14:46-0400 Systolic blood pressure 132 mm[Hg] Dr. Blue Lambert MD Work Phone: 0(762)438-493156 [place] [address] 08-14-2024 13:25-0400 Body height 172.[address] Blue Lambert MD Work Phone: 3(895)535-365856 [place] [address] 08-14-2024 13:25-0400 Body mass index (BMI) [Ratio] 27.3 kg/m2 Dr. Blue Lambert MD Work Phone: 4(211)792-994056 [place] [address] 08-14-2024 13:25-0400 Body weight 81.[address] Blue Lambert MD Work Phone: 6(670)396-551956 [place] [address] 08-14-2024 13:25-0400 Heart rate 98 /min Dr. Blue Lambert MD Work Phone: 9(666)606-617956 [place] [address] 08-14-2024 13:25-0400 Respiratory rate 18 /min Dr. Blue Lambert MD Work Phone: 3(268)358-455450 [place] [address] 08-14-2024 13:25-0400 SaO2% (BldA) [Mass fraction] 95 % Dr. Blue Lambert MD Work Phone: [facility] 07-13-2023 13:25-0500 Body height 172.[address] Blue Lambert Work Phone: [facility] 07-13-2023 13:25-0500 Body mass index (BMI) [Ratio] 27 kg/m2 Dr. Blue Lambert Work Phone: [facility] 07-13-2023 13:25-0500 Body weight 80.[address] Blue Lambert Work Phone: [facility] 07-13-2023 13:25-0500 Diastolic blood pressure 82 mm[Hg] Dr. Blue Lambert Work Phone: [facility] 07-13-2023 13:25-0500 Heart rate 82 /min Dr. Blue Lambert Work Phone: [facility] 07-13-2023 13:25-0500 Respiratory rate 18 /min Dr. Blue Lambert Work Phone: [facility] 07-13-2023 13:25-0500 SaO2% (BldA) [Mass fraction] 97 % Dr. Blue Lambert Work Phone: [facility] 07-13-2023 13:25-0500 Systolic blood pressure 159 mm[Hg] Dr. Blue Lambert Work Phone: [facility] 01-10-2023 13:58-0400 Body height 172.[address] Blue Lambert Work Phone: [facility] 01-10-2023 13:58-0400 Body mass index (BMI) [Ratio] 27.2 kg/m2 Dr. Blue Lambert Work Phone: [facility] 01-10-2023 13:58-0400 Body weight 81.[address] Blue Lambert Work Phone: [facility] 01-10-2023 13:58-0400 Diastolic blood pressure 75 mm[Hg] Dr. Blue Lambert Work Phone: [facility] 01-10-2023 13:58-0400 Heart rate 85 /min Dr. Blue Lambert Work Phone: [facility] 01-10-2023 13:58-0400 Respiratory rate 18 /min Dr. Blue Lambert Work Phone: [facility] 01-10-2023 13:58-0400 SaO2% (BldA) [Mass fraction] 97 % Dr. Blue Lambert Work Phone: [facility] 01-10-2023 13:58-0400 Systolic blood pressure 172 mm[Hg] Dr. Blue Lambert Work Phone: [facility] 01-01-2022 10:03-0400 Body height 172.[address] Blue Lambert Work Phone: [facility] Work Phone: 01-01-2022 10:03-0400 Body mass index (BMI) [Ratio] 26 kg/m2 Dr. Blue Lambert Work Phone: [facility] Work Phone: 01-01-2022 10:03-0400 Body weight 77.[address] Blue Lambert Work Phone: [facility] Work Phone: 01-01-2022 10:03-0400 Diastolic blood pressure 68 mm[Hg] Dr. Blue Lambert Work Phone: [facility] Work Phone: 01-01-2022 10:03-0400 Heart rate 72 /min Dr. Blue Lambert Work Phone: [facility] Work Phone: 01-01-2022 10:03-0400 Respiratory rate 16 /min Dr. Blue Lambert Work Phone: [facility] Work Phone: 01-01-2022 10:03-0400 Systolic blood pressure 162 mm[Hg] Dr. Blue Lambert Work Phone: [facility] Work Phone: 11-02-2021 13:39-0400 Body temperature 97.4 [degF] Dr. Blue Lambert Work Phone: [facility] Work Phone: 11-02-2021 13:39-0400 Diastolic blood pressure 84 mm[Hg] Dr. Blue Lambert Work Phone: [facility] Work Phone: 11-02-2021 13:39-0400 Heart rate 86 /min Dr. Blue Lambert Work Phone: [facility] Work Phone: 11-02-2021 13:39-0400 Respiratory rate 16 /min Dr. Blue Lambert Work Phone: [facility] Work Phone: 11-02-2021 13:39-0400 SaO2% (BldA) [Mass fraction] 97 % Dr. Blue Lambert Work Phone: [facility] Work Phone: 11-02-2021 13:39-0400 Systolic blood pressure 160 mm[Hg] Dr. Blue Lambert Work Phone: [facility] Work Phone: 08-11-2021 11:28-0400 Body temperature 98.7 [degF] Dr. Blue Lambert Work Phone: [facility] Work Phone: 08-11-2021 11:28-0400 Diastolic blood pressure 82 mm[Hg] Dr. Blue Lambert Work Phone: [facility] Work Phone: 08-11-2021 11:28-0400 Heart rate 103 /min Dr. Blue Lambert Work Phone: [facility] Work Phone: 08-11-2021 11:28-0400 Respiratory rate 14 /min Dr. Blue Lambert Work Phone: [facility] Work Phone: 08-11-2021 11:28-0400 SaO2% (BldA) [Mass fraction] 96 % Dr. Blue Lambert Work Phone: [facility] Work Phone: 08-11-2021 11:28-0400 Systolic blood pressure 150 mm[Hg] Dr. Blue Lambert Work Phone: [facility] Work Phone: 08-04-2021 12:53-0500 Body height 172.[address] Blue Lambert Work Phone: [facility] Work Phone: Encounters Encounter Date Encounter Type Care Provider Facility Start: 03-13-2025 ambulatory Blue Lambert Facilit y:[facility] Start: 02-28-2025 End: 02-28-[address] Blue Lambert MD Work Phone: -Pulmonary Services/Neurology Start: 02-28-2025 End: 02-28-2025 Patient encounter procedure Yair VASQUEZ -Pulmonary Services/Neurology Work Phone: Start: 02-28-2025 End: 02-28-2025 ambulatory Blue Lambert Facility:[facility] Start: 02-20-2025 End: 02-20-[address] Blue Lambert MD Work Phone: -Cat Scan [facility] Start: 02-20-2025 End: 02-20-2025 Patient encounter procedure Abena Cardenas WASHING TUB OPERATOR-C -Cat Scan [facility] Work Phone: Start: 02-20-2025 End: 02-20-2025 ambulatory Blue Lambert Facility:[facility] Start: 02-13-2025 End: 02-13-[address] Blue Lambert MD Work Phone: -Laboratory Start: 02-13-2025 End: 02-13-2025 Patient encounter procedure Yair Dejesussondra PA -Laboratory Work Phone: Start: 02-13-2025 End: 02-13-2025 Patient encounter procedure Yair Ireland PA -[facility] Work Phone: Start: 02-13-2025 End: 02-13-[address] Blue Lambert MD Work Phone: -[facility] Start: 02-13-2025 End: 02-13-2025 ambulatory Yairshauna Ireland Facility:[facility] Start: 11-28-2024 End: 11-28-[address] Blue Lambert MD Work Phone: -Laboratory [place] Start: 11-28-2024 End: 11-28-[address] Blue Lambert MD -[facility] [place] Work Phone: Start: 11-28-2024 End: 11-28-2024 ambulatory Blue Lambert Facility:[facility] Start: 11-26-2024 End: 11-26-[address] Blue Lambert MD Work Phone: -Laboratory Specimen Start: 11-26-2024 End: 11-26-[address] Rainer Weston MD -Laboratory Specimen Work Phone: Start: 11-26-2024 End: 11-26-[address] Rainer Weston MD -[facility] Work Phone: Start: 11-26-2024 End: 11-26-[address] Blue Lambert MD Work Phone: -[facility] Start: 11-26-2024 End: 11-26-2024 ambulatory Rainer Weston Facility:[facility] Start: 11-13-2024 End: 11-13-[address] Blue Lambert MD Work Phone: [facility] Work Phone: Start: 11-13-2024 End: 11-13-2024 Patient encounter procedure Yair VASQUEZ -Laboratory [place] Work Phone: Start: 11-13-2024 End: 11-13-2024 Patient encounter procedure Yair Ireland PA -[facility] Work Phone: Start: 11-13-2024 End: 11-13-[address] Blue Lambert MD Work Phone: [facility] Work Phone: Start: 11-13-2024 End: 11-13-2024 ambulatory Yair Ireland Facility:[facility] Start: 10-29-2024 End: 10-29-[address] Blue Lambert MD Work Phone: [facility] Work Phone: Start: 10-29-2024 End: 10-29-[address] Rainer Weston MD -Ultrasound [facility] Work Phone: Start: 10-29-2024 End: 10-29-2024 ambulatory Rainer Weston Facility:[facility] Start: 09-25-2024 End: 09-25-2024 Patient encounter procedure Yair Ireland PA -[facility] Work Phone: Start: 09-25-2024 End: 09-25-2024 ambulatory Blue Lambert Facility:[facility] Start: 09-12-2024 End: 09-12-[address] Blue Lambert MD Work Phone: [facility] Work Phone: Start: 09-12-2024 End: 09-12-[address] Blue Lambert MD -[facility] Start: 09-12-2024 End: 09-12-2024 ambulatory Blue Lambert Facility:[facility] Start: 08-14-2024 End: 08-14-[address] Blue Lambert MD Work Phone: [facility] Work Phone: Start: 08-14-2024 End: 08-14-2024 Patient encounter procedure Yair VASQUEZ -Laboratory Work Phone: Start: 08-14-2024 End: 08-14-2024 Patient encounter procedure Yair VASQUEZ -[facility] Work Phone: Start: 08-14-2024 End: 08-14-2024 ambulatory Blue Lambert Facility:[facility] Start: 08-14-2024 End: 08-14-2024 ambulatory Blue Lambert Facility:[facility] Start: 06-22-2024 End: 06-22-2024 Patient encounter procedure Dane Werner DO -[facility] Work Phone: Start: 06-22-2024 End: 06-22-2024 ambulatory Dane Werner Facility:[facility] Start: 05-11-2024 End: 05-11-[address] Blue Lambert MD -Laboratory, [facility] Start: 05-11-2024 End: 05-11-2024 ambulatory Blue Lambert Facility:[facility] Start: 03-30-2024 End: 03-30-2024 ambulatory Blue Lambert Facility:[facility] Start: 08-17-2023 End: 08-17-[address] Blue Lambert Work Phone: [facility] Work Phone: Start: 08-17-2023 End: 08-17-[address] Blue Lambert Work Phone: [facility]-Outpatient Bone Densitometry Work Phone: Start: 07-20-2023 End: 07-20-[address] Blue Lambert Work Phone: [facility]-Laboratory Work Phone: Start: 07-19-2023 Non-patient / Non-visit Dr. Blue Lambert Work Phone: [facility] Start: 07-19-2023 End: 07-19-[address] [facility] Start: 07-13-2023 End: 07-13-[address] Blue Lambert Work Phone: [facility] Work Phone: Start: 07-13-2023 End: 07-13-[address] Blue Lambert Work Phone: [facility] Work Phone: Start: 05-05-2023 End: 05-05-2023 ambulatory [facility] Work Phone: Start: 05-05-2023 End: 05-05-2023 Patient encounter procedure [facility] Work Phone: Start: 04-26-2023 End: 04-26-[address] Blue Lambert Work Phone: [facility] Work Phone: Start: 04-26-2023 End: 04-26-[address] Blue Lambert Work Phone: [facility] Work Phone: Start: 04-20-2023 End: 04-20-[address] Blue Lambert Work Phone: [facility] Work Phone: Start: 04-20-2023 End: 04-20-[address] Blue Lambert Work Phone: [facility] Start: 01-19-2023 End: 01-19-[address] Blue Lambert Work Phone: [facility] Work Phone: Start: 01-18-2023 End: 01-18-[address] Blue Lambert Work Phone: [facility] Work Phone: Start: 01-18-2023 End: 01-18-[address] Blue Lambert Work Phone: [facility] Work Phone: Start: 01-10-2023 End: 01-10-[address] Blue Lambert Work Phone: [facility] Work Phone: Start: 01-10-2023 End: 01-10-[address] Blue Lambert Work Phone: [facility] Work Phone: Start: 02-02-[address] Blue Lambert Work Phone: [facility]-Physical Therapy Start: 01-30-2022 End: 01-30-[address] Blue Lambert Work Phone: [facility] Work Phone: Start: 01-30-2022 End: 01-30-[address] Blue Lambert Work Phone: [facility], [facility] Start: 01-28-2022 End: 01-28-[address] Blue Lambert Work Phone: [facility] Work Phone: Start: 01-28-2022 End: 01-28-[address] Blue Lambert Work Phone: [facility] Start: 01-21-[address] Blue Lambert Work Phone: [facility]-Physical Therapy Start: 01-18-2022 End: 01-18-[address] Blue Lambert Work Phone: [facility] Work Phone: Start: 01-18-2022 End: 01-18-[address] Blue Lambert Work Phone: [facility]-Laboratory Start: 01-11-2022 Non-patient / Non-visit Dr. Blue Lambert Work Phone: [facility] Start: 01-11-2022 End: 01-11-[address] Blue Lambert Work Phone: [facility]-Cardiovascular Services Start: 01-01-2022 End: 01-01-[address] Blue Lambert Work Phone: [facility] Start: 12-30-2021 End: 12-30-[address] Blue Lambert Work Phone: [facility] Start: 11-02-2021 End: 11-02-[address] Blue Lambert Work Phone: [facility] Start: 10-28-2021 End: 10-28-[address] Blue Lambert Work Phone: [facility] Start: 08-11-2021 End: 08-11-[address] Blue Lambert Work Phone: [facility] Start: 08-04-2021 End: 08-04-[address] Blue Lambert Work Phone: [facility]-Outpatient Bone Densitometry Start: 05-07-2017 End: 05-07-2017 Ambulatory [facility] Procedures Date Procedure Procedure Detail Performing Clinician Start: 02-20-2025 CT angiography of ch est with contrast Dr. Blue Lambert MD Work Phone: Start: 11-28-2024 Vitamin D, 25-hydrox y measurement Dr. Blue Lambert MD Work Phone: Comment on above: Vitamin D StatusDefi ciency: <20 ng/mL (50nmol/L)Insufficiency: 20-30 ng/mL (50-75 nmol/L)Sufficiency: 30-100 ng/mL (75-250 nmol/L)Toxicity: >100 ng/mL (>250 nmol/L) Start: 10-29-2024 US scan of thyroid Dr. [...] Treatment Date Care Activity Detail Author Start: 02-13-2025 24 Hour ECG [facility] Start: 02-13-2025 End: 02-13-2025 Evaluation of diagnostic study results [facility] Start: 11-28-2024 Vitamin B12 measurement [facility] Start: 11-28-2024 Vitamin D, 25-hydroxy measurement [facility] Alanine aminotransfe rase [Enzymatic activity/volume] in Serum or Plasma [facility] Albumin [Mass/volume ] in Serum or Plasma [facility] Alkaline phosphatase [Enzymatic activity/volume] in Serum or Plasma [facility] Anion gap in Serum or Plasma [facility] Basic metabolic 2007 panel with ionized calcium - Serum or Plasma [facility] Basic metabolic 2007 panel with ionized calcium - Serum or Plasma [facility] Bilirubin, total measurement [facility] Bilirubin.direct [Ma ss/volume] in Serum or Plasma [facility] Blood chemistry [facility] Work Phone: BUN/Creatinine ratio [facility] Calcium [Mass/volume ] in Serum or Plasma [facility] Carbon dioxide, tota l [Moles/volume] in Central venous blood [facility] CBC W Auto Different ial panel - Blood [facility] CBC W Auto Different ial panel - Blood [facility] Cholesterol [Mass/vo lume] in Serum or Plasma [facility] Cholesterol in HDL [ Mass/volume] in Serum or Plasma [facility] Creatinine [Mass/vol ume] in Serum or Plasma [facility] Erythrocyte mean cor puscular volume determination [facility] Glucose [Mass/volume ] in Serum or Plasma [facility] Hematocrit [Volume F raction] of Blood [facility] Hemoglobin [Mass/volume] in Blood [facility] Hemoglobin A1c/Hemog lobin.total in Blood [facility] Leukocytes [#/volume] in Blood [facility] Low density lipoprot ein cholesterol measurement [facility] Magnesium [Mass/volu me] in Serum or Plasma [facility] Work Phone: Magnesium measurement [facility] Mean corpuscular hem oglobin concentration determination [facility] Mean corpuscular hem oglobin determination [facility] Measurement of renal function [facility] Natriuretic peptide. B prohormone N-Terminal [Mass/volume] in Serum or Plasma [facility] Neutrophil count [facility] Neutrophil percent d ifferential count [facility] Platelets [#/volume] in Blood [facility] Potassium measurement [facility] Red blood cell count [facility] Red cell distributio n width determination [facility] Serum chloride measurement [facility] Sodium measurement [facility] T4 free measurement [facility] Thyroid stimulating hormone measurement [facility] Total cholesterol:HD L ratio measurement [facility] Total protein measurement [facility] Triglycerides measurement [facility] Urea nitrogen [Mass/ volume] in Serum or Plasma [facility] US Heart [facility] VLDL cholesterol measurement [facility] Immunizations Immunization Date Immunization Notes Care Provider Fa cility 07-18-2020 Covid (Moderna) Dr. Blue ro Work Phone: [facility] 06-20-2020 Covid (Invia.cz) Dr. Blue ro Work Phone: [facility] Payers Date Payer Category Payer Self-pay [id number] 2024 Medicare [id number] 2020 [employer] ( and others) [id number] [employer] ( and others) [id number] [employer] ( and others) [facility] [id number] Unknown [id number] [id number] 62 Unknown [id number] 2.16.840.1.200975.3.579.2.4 62 Unknown [id number] 2.16.840.1.340007.3.579.2.4 62 Unknown [id number] 2.16.840.1.888816.3.579.2.4 62 Unknown [id number] 2.16.840.1.972801.3.579.2.4 62 Unknown [id number] 2.16.840.1.360083.3.579.2.4 62 Unknown [id number] 2.16.840.1.032071.3.579.2.4 62 Unknown [id number] 2.16.840.1.587210.3.579.2.4 62 Unknown [id number] 2.16.840.1.523571.3.579.2.4 62 Unknown [id number] 2.16.840.1.895849.3.579.2.4 62 Unknown [id number] 2.16.840.1.060820.3.579.2.4 62 Unknown [id number] 2.16.840.1.868752.3.579.2.4 62 Unknown [id number] 2.16.840.1.071471.3.579.2.4 62 Unknown [id number] 2.16.840.1.419541.3.579.2.4 62 Unknown [id number] 2.16.840.1.032663.3.579.2.4 62 Unknown [id number] 2.16.840.1.610311.3.579.2.4 62 Unknown [id number] 2.16.840.1.762476.3.579.2.4 62 Unknown [id number] 2.16.840.1.489916.3.579.2.4 62 Unknown [id number] 2.16.840.1.039417.3.579.2.4 62 Social History Date Type Detail Facility Start: 08-11-2021 End: 07-13-2023 Tobacco smoking status NHIS Unknown if ever smoked [facility] Start: 1935 Sex Assigned At Female [facility] Start: 08-14-2024 Tobacco smoking stat us GAIS Never smoked tobacco (finding) [facility] Start: 08-23-2024 End: 09-17-2024 Sex Female (finding) [facility] Sex Female [facility] Clinical Notes 06-22-2024 to 02-20-2025 Note Date & Type Note Facility 02-20-2025 Radiology Diagnostic study note [facility] Imaging Services [address] [place] [address] CTA Chest W/WO Contrast MR#: [id number] Acct: [id number] Name: ANANTH BANDA Rep #: [id number] : 1935 F 89 From: Osmar Palmer MD PCP: Dr. Blue Lambert MD Status: RE G CLI Study:CTA Chest W/WO Contrast Date of Exam: 02/20/25 Exam# [id number] Ordering Dr: Abena Cardenas NP WASHING TUB OPERATOR-C PROCEDURE: CTA CHEST W/WO CONTRAST 02/20/2025 REASON FOR EXAM: MENENDEZ-R/O PE TECHNIQUE: Procedure Code: CTCTACHWW Modality: CT Procedure: CTA CHEST W/WO CONTRAST Multiplanar Sagittal and Coronal images were obtained. CONTRAST: Isovue 370 VOLUME: 73 mL One or more dose reduction techniques were used (e.g., Automated exposure control, adjustment of the mA and/or kV according to patient size, use of iterative reconstruction technique). RADIATION DOSE SUMMARY: CTDlvol: 5.33 mGy DLP: 186.81 mGycm COMPARISON: None. # of known CTs in the past 12 months: 0 # of known Cardiac Nuclear Medicine Studies in the past 12 months: 0 FINDINGS: Thoracic Aorta: No aneurysm. Atherosclerotic calcifications of the aorta. Heart: Large cardiomegaly. Atherosclerotic calcifications of the coronary arteries. Pulmonary Vessels: No evidence of pulmonary embolism. Hardware: Unremarkable. Lymph nodes: No lymphadenopathy. Lungs and Airways: Diffuse ground-glass densities. Pleura: Large right and moderate left pleural effusions. Upper Abdomen: Contrast reflux into the the hepatic vein consistent with right heart failure. Bones: No acute bony abnormalities. CT/CTA Chest W/WO Contrast IMPRESSION: Cardiomegaly, bilateral pleural effusions and diffuse ground-glass densities consistent with CHF. No evidence of pulmonary embolism. Reading Location: [id number] CC: SANTINO Cardenas; Dr. Blue Lambert MD; yair ireland ~ Branch Library Clerk: Signed [facility] 11-13-2024 Evaluation note Diagnosis Onset Date Resolution Atrial fibrillation acute November 13, 2024 11:03am Diastolic heart failure acute J une 2024 11:03am Acquired atrial septal defect (ASD) chronic November 13, 2024 11:03am Essential hypertension chronic Ju ne 2024 11:03am Non-rheumatic tricuspid valve insufficiency chronic November 13, 025 11:03am Multiple thyroid nodules acute November 26, 2024 8:51am [facility] Work Phone: 1(105) 547-143106-17-2025 Evaluation note* Diagnosis Onset Date Resolution Status Admit Date Atrial fibrillation acute November 13, 2024 11:03am Diastolic heart failure acute J une 2024 11:03am Acquired atrial septal defec t (ASD) chronic November 13, 2024 11:03am Essential hypertension chronic Ju ne 2024 11:03am Non-rheumatic tricuspid valv e insufficiency chronic November 13, 2024 11:03am Multiple thyroid nodules acute November 26, 2024 8:51am Atrial fibrillation acute Septe mber 2024 10:49am Diastolic heart failure acute S eptember 2024 10:49am Acquired atrial septal defec t (ASD) chronic February 13, 2025 10:49am Essential hypertension chronic Se ptember 2024 10:49am Non-rheumatic tricuspid valv e insufficiency chronic February 13, 2025 10:49am [facility] Work Phone: 1(126) 821-637006-03-2025 Radiology Diagnostic study note [facility] Imaging Services [address] [place], [place] [address] Thyroid MR#: [id number] Acct: [id number] Name: ANANTH BANDA Rep #: [id number] : 1935 F 89 From: Julia Payan MD PCP: Dr. Blue Lambert MD Status: RE G CLI Study:Thyroid Date of Exam: 10/29/24 Exam# [id number] Ordering Dr: Arabella Weston MD PROCEDURE: THYROID 10/29/2024 REASON FOR EXAM: THYROID NODULES TECHNIQUE: High-frequency thyroid ultrasound, including grayscale and color-flow images. REFERENCE LINKS: TI-RADS Chart: [email or web address] TI-RADS Calculator Tool with Reference Images: [email or web address] COMPARISON: 10/28/2021 FINDINGS: Right thyroid lobe size: [...] no more than 2 nodules. Reading [facility] CC: Dr. Blue Lambert MD; Dr. Rainer Weston MD ~ Branch Library Clerk: Signed [facility]03-18-2025 Evaluation note* Diagnosis Onset Date Resolution Status Admit Date Atrial fibrillation acute August 14, 2024 1:20pm Lower extremity edema acute Jul 1:20pm Shortness of breath acute August 14, 2024 1:20pm Acquired atrial septal defec t (ASD) chronic August 14, 2024 1:20pm Essential hypertension chronic [facility] 2024 1:20pm Non-rheumatic tricuspid valv e [...] e insufficiency chronic September 25, 2024 12:40pm [facility] Work Phone: 1(909) 108-140203-18-2025 Evaluation note* Diagnosis Onset Date Resolution Status Admit Date Atrial fibrillation acute August 14, 2024 1:20pm Lower extremity edema acute Mar ch 2024 1:20pm Shortness of breath acute August 14, 2024 1:20pm Acquired atrial septal defec t (ASD) chronic August 14, 2024 1:20pm Essential hypertension chronic Ma [facility] 2024 1:20pm Non-rheumatic tricuspid valv e [...] 13, 2024 11:03am Essential hypertension chronic Ju ne 2024 11:03am Non-rheumatic tricuspid valv e insufficiency chronic November 13, 2024 11:03am [facility] Work Phone: 1(857) 725-935203-18-2025 Evaluation note* Diagnosis Onset Date Resolution Status Admit Date Atrial fibrillation acute August 14, 2024 1:20pm Lower extremity edema acute [facility] 2024 1:20pm Shortness of breath acute August 14, 2024 1:20pm Acquired atrial septal defec t (ASD) chronic August 14, 2024 1:20pm Essential hypertension chronic [facility] 2024 1:20pm Non-rheumatic tricuspid valv e insufficiency chronic August 14, 2024 1:20pm Atrial fibrillation acute September 25, 2024 12:40pm Lower extremity edema acute Apr ma 2024 12:40pm Shortness of breath acute September 25, 2024 12:40pm Acquired atrial septal defec t (ASD) chronic September 25, 2024 12:40pm Essential hypertension chronic Ap [facility] 2024 12:40pm Non-rheumatic tricuspid valv e insufficiency chronic September 25, 2024 12:40pm Atrial fibrillation acute November 13, 2024 11:03am Diastolic heart failure [facility] 2024 11:03am Acquired atrial septal defec t (ASD) chronic November 13, 2024 11:03am Essential hypertension chronic [facility] 2024 11:03am Non-rheumatic tricuspid valv e insufficiency chronic November 13, 2024 11:03am [facility] Work Phone: 1(885) 776-470203-18-2025 Evaluation note* Diagnosis Onset Date Resolution Status Admit Date Atrial fibrillation acute August 14, 2024 1:20pm Lower extremity edema acute [facility] 2024 1:20pm Shortness of breath acute August 14, 2024 1:20pm Acquired atrial septal defec t (ASD) chronic August 14, 2024 1:20pm Essential hypertension chronic [facility] 2024 1:20pm Non-rheumatic tricuspid valv e insufficiency chronic August 14, 2024 1:20pm Atrial fibrillation acute September 25, 2024 12:40pm Lower extremity edema acute Apr ma 2024 12:40pm Shortness of breath acute September 25, 2024 12:40pm Acquired atrial septal defec t (ASD) chronic September 25, 2024 12:40pm Essential hypertension chronic Ap [facility] 2024 12:40pm Non-rheumatic tricuspid valv e insufficiency chronic September 25, 2024 12:40pm Atrial fibrillation acute November 13, 2024 11:03am Diastolic heart failure acute J une 2024 11:03am Acquired atrial septal defec t (ASD) chronic November 13, 2024 11:03am Essential hypertension chronic Ju ne 2024 11:03am Non-rheumatic tricuspid valv e insufficiency chronic November 13, 2024 11:03am Multiple thyroid nodules acute November 26, 2024 8:51am [facility] Work Phone: 1(750) 554-916701-24-2025 Evaluation note* Diagnosis Onset Date Resolution Status Admit Date Anemia acute June 22, 2024 10:52am 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, 2024 10:52am Atrial fibrillation acute August 14, 2024 1:20pm Lower extremity edema acute [facility] 2024 1:20pm Shortness of breath acute August 14, 2024 1:20pm Acquired atrial septal defec t (ASD) chronic August 14, 2024 1:20pm Essential hypertension chronic [facility] 2024 1:20pm Non-rheumatic tricuspid valv e insufficiency chronic August 14, 2024 1:20pm [facility] Work Phone: Evaluation note* Diagnosis Onset Date Resolution Status Acute bronchitis acute Acute sinusitis acute [facility] Work Phone: Evaluation note* Diagnosis Onset Date Resolution Status Multiple thyroid nodules acu te Acquired atrial septal defect (ASD) acute Atrial fibrillation acute Essential hypertension acute Non-rheumatic mitral regurgitation acute Non-rheumatic tricuspid valve insufficiency acute [facility] Work Phone: Evaluation note* Diagnosis Onset Date Resolution Status Acquired atrial septal defect (ASD) acute Atrial fibrillation acute Bilateral lower extremity edema acute Essential hypertension acute Fatigue acute Non-rheumatic mitral regurgitation acute Non-rheumatic tricuspid valve insufficiency acute [facility] Work Phone: Evaluation noteNo assessment information available [facility] Work Phone: evaluation note* Diagnosis Onset Date Resolution Status Acquired atrial septal defect (ASD) acute Atrial fibrillation acute Bilateral lower extremity edema acute Essential hypertension acute Non-rheumatic mitral regurgitation acute Non-rheumatic tricuspid valve insufficiency acute [facility] Work Phone: Reason for referral (narrative)No reason for referral information [facility] Work Phone: Summary Purpose Family History No Family History Records Found Relationship Condition Age at Onset Recorded Date/T jus mother Diabetes mellitus Unknown father Myocardial infarction Unknown Coronary artery disease Unknown Advance Directives No Advanced Directives Records Found Advance Directive Response Recorded Date/ Time Advance Directives Yes December 09 11:42am Living Will Yes December 09, 2020 11:42am Power of Firestopper Installer Yes December 09 11:42am Advance Directive Response Recorded Date/ Time Advance Directives Yes December 09 10:42am Living Will Yes December 09, 2020 10:42am Power of Firestopper Installer Yes December 09 10:42am Advance Directive Response Recorded Date/ Time Living Will Yes February 27 12:47am Do you have a Healthcare Power of Firestopper Installer? Yes February 28, 2024 12:47am Advance Directives Yes December 09 11:42am Advance Directive Response Recorded Date/ Time Advance Directives Yes December 09 11:42am Chief Complaint and Reason for Visit Chief Complaint OSTEO HANEY/POST NASAL DRIP/ NOT FEELING WELL THYROID NODULE Reason for Visit Acute bronchitis Acute sinusitis Chief Complaint THYROID NODULE Thyroid F/U Ultrasound 10/28 [facility] 9 M FU Reason for Visit Multiple thyroid nod ules Acquired atrial septal defect (ASD) Atrial fibrillation Essential hypertension Non-rheumatic mitral regurgitation Non-rheumatic tricuspid valve insufficiency Chief Complaint THYROID NODULE Thyroid F/U Ultrasound 10/28 [facility] 9 M FU RLE CALF PAIN LEG WEAKNESS/PT HAS RX Reason for Visit Multiple thyroid nod ules Acquired atrial septal defect (ASD) Atrial fibrillation Essential hypertension Non-rheumatic mitral regurgitation Non-rheumatic tricuspid valve insufficiency Chief Complaint THYROID NODULE Thyroid F/U Ultrasound 10/28 [facility] 9 M FU RLE CALF PAIN RIGHT [...] 0pm Acquired atrial septal defect (ASD) Dorian h 2024 1:20pm Essential hypertension August 14, 2024 [...] 0pm Acquired atrial septal defect (ASD) Dorian h 2024 1:20pm Essential hypertension August 14, 2024 [...] Multiple thyroid nodules November 26, 2024 8:51am Chief Complaint Admit Date NODULE October 29, 2024 11:37 am 8 WK FU November 13, 2024 11:0 3am EORDER November 13, 2024 1:29 pm THYROID U/S RESULTS November 26, 2024 8:51 am EORDERS November 28, 2024 1:30p m 3 M FU February 13, 2025 10:49am Reason for Visit Admit Date Atrial fibrillation November 13, 2024 11:0 3am Diastolic heart failure November 13, 2024 11:03am Acquired atrial septal defect (ASD) November 13, 2024 11:03am Essential hypertension November 13, 2024 1 1:03am Non-rheumatic tricuspid valve insufficie ncy November 13, 2024 11:03am Multiple thyroid nodules November 26, 2024 8:51am Chief Complaint Admit Date 8 WK FU November 13, 2024 11:0 3am EORDER November 13, 2024 1:29 pm THYROID U/S RESULTS November 26, 2024 8:51 am EORDERS November 28, 2024 1:30p m 3 M FU February 13, 2025 10:49am INT LAB ORDERS February 13, 2025 12:13pm MENENDEZ, R/O PE February 20, 2025 8:16am Reason for Visit Admit Date Atrial fibrillation November 13, 2024 11:0 3am Diastolic heart failure November 13, 2024 11:03am Acquired atrial septal defect (ASD) November 13, 2024 11:03am Essential hypertension November 13, 2024 1 1:03am Non-rheumatic tricuspid valve insufficie ncy November 13, 2024 11:03am Multiple thyroid nodules November 26, 2024 8:51am Atrial fibrillation February 13, 2025 10:49am Diastolic heart failure February 13, 2025 10:49am Acquired atrial septal defect (ASD) Sept ember 2024 10:49am Essential hypertension February 13, 2 025 10:49am Non-rheumatic tricuspid valve insufficie ncy February 13, 2025 10:49am Chief Complaint Admit Date 8 WK FU November 13, 2024 11:0 3am EORDER November 13, 2024 1:29 pm THYROID U/S RESULTS November 26, 2024 8:51 am EORDERS November 28, 2024 1:30p m 3 M FU February 13, 2025 10:49am INT LAB ORDERS February 13, 2025 12:13pm MENENDEZ, R/O PE February 20, 2025 8:16am Unspecified atrial fibrillation February 28, 2025 12:09pm Additional Source Comments INFORMATION SOURCE (unrecogn ized section and content) DATE CREATED AUTHOR 11/22/2017 [facility] DATE CREATED AUTHOR AUTHOR'S ORGANIZ ATION [facility] Goals (unrecognized section and content) [...] Provider, Referr ing Provider Active Abena Cardenas WASHING TUB OPERATOR, WASHING TUB OPERATOR-C Attending Provider Active Team Status: Inactive Member Role Status Dates Dr. Blue Lambert MD Primary Care Provider Active Abena Cardenas WASHING TUB OPERATOR, WASHING TUB OPERATOR-C Attending Provider, Referring P ramón Active Team [...] MD Primary Care Provider Active Abena Cardenas WASHING TUB OPERATOR, WASHING TUB OPERATOR-C Attending Provider Active Team Status: Active Member [...] Referring Provider Active Start: November 28, 2024 Team Status: Inactive Member Role/Relationship Status Dates Dr. Blue Lambert MD Primary Care Provider Active Start: November 28, 2024 End: November 28, 2024 Dr. Blue Lambert MD Attending Provider Active Start: November 28, 2024 End: November 28, 2024 Dr. Blue Lambert MD Referring Provider Active Start: November 28, 2024 End: November 28, 2024 Team Status: Active Member Role/Relationship Status Dates Dr. Blue Lambert MD Primary care physician Active Team Status: Inactive Member Role/Relationship Status Dates Dr. Blue Lambert MD Primary care physician Active Start: October 29, 2024 End: October 29, 2024 Dr. Rainer Weston MD Attending physician Active Start: October 29, 2024 End: October 29, 2024 Dr. Rainer Weston MD Referring Provider Active Start: October 29, 2024 End: October 29, 2024 Team Status: Inactive Member Role/Relationship Status Dates Dr. Blue Lambert MD Primary care physician Active Start: November 13, 2024 End: November 13, 2024 Dr. Blue Lambert MD Referring Provider Active Start: November 13, 2024 End: November 13, 2024 CHRISTINA Pike Attending physician Active S tart: November 13, 2024 End: November 13, 2024 Team Status: Inactive Member Role/Relationship Status Dates Dr. Blue Lambert MD Primary care physician Active Start: November 13, 2024 End: November 13, 2024 CHRISTINA Pike Attending physician Active S tart: November 13, 2024 End: November 13, 2024 CHRISTINA Pike Referring Provider Active St art: November 13, 2024 End: November 13, 2024 Team Status: Inactive Member Role/Relationship Status Dates Dr. Blue Lambert MD Primary care physician Active Start: November 26, 2024 End: November 26, 2024 Dr. Blue Lambert MD Referring Provider Active Start: November 26, 2024 End: November 26, 2024 Dr. Rainer Weston MD Attending physician Active Start: November 26, 2024 End: November 26, 2024 Team Status: Inactive Member Role/Relationship Status Dates Dr. Blue Lambert MD Primary care physician Active Start: November 26, 2024 End: November 26, 2024 Dr. Rainer Weston MD Attending physician Active Start: November 26, 2024 End: November 26, 2024 Team Status: Inactive Member Role/Relationship Status Dates Dr. Blue Lambert MD Primary care physician Active Start: November 28, 2024 End: November 28, 2024 Dr. Blue Lambert MD Attending physician Active Start: November 28, 2024 End: November 28, 2024 Dr. Blue Lambert MD Referring Provider Active Start: November 28, 2024 End: November 28, 2024 Team Status: Inactive Member Role/Relationship Status Dates Dr. Blue Lambert MD Primary care physician Active Start: February 13, 2025 End: February 13, 2025 Dr. Blue Lambert MD Referring Provider Active Start: February 13, 2025 End: February 13, 2025 CHRISTINA Pike Attending physician Active S tart: February 13, 2025 End: February 13, 2025 Team Status: Inactive Member Role/Relationship Status Dates Dr. Blue Lambert MD Primary care physician Active Start: November 13, 2024 End: November 13, 2024 Dr. Blue Lambert MD Referring Provider Active Start: November 13, 2024 End: November 13, 2024 CHRISTINA Pike Attending physician Active S tart: November 13, 2024 End: November 13, 2024 Team Status: Inactive Member Role/Relationship Status Dates Dr. Blue Lambert MD Primary care physician Active Start: November 13, 2024 End: November 13, 2024 CHRISTINA Pike Attending physician Active S tart: November 13, 2024 End: November 13, 2024 CHRISTINA Pike Referring Provider Active St art: November 13, 2024 End: November 13, 2024 Team Status: Inactive Member Role/Relationship Status Dates Dr. Blue Lambert MD Primary care physician Active Start: November 26, 2024 End: November 26, 2024 Dr. Blue Lambert MD Referring Provider Active Start: November 26, 2024 End: November 26, 2024 Dr. aRiner Weston MD Attending physician Active Start: November 26, 2024 End: November 26, 2024 Team Status: Inactive Member Role/Relationship Status Dates Dr. Blue Lambert MD Primary care physician Active Start: November 26, 2024 End: November 26, 2024 Dr. Rainer Weston MD Attending physician Active Start: November 26, 2024 End: November 26, 2024 Team Status: Inactive Member Role/Relationship Status Dates Dr. Blue Lambert MD Primary care physician Active Start: November 28, 2024 End: November 28, 2024 Dr. Blue Lambert MD Attending physician Active Start: November 28, 2024 End: November 28, 2024 Dr. Blue Lambert MD Referring Provider Active Start: November 28, 2024 End: November 28, 2024 Team Status: Inactive Member Role/Relationship Status Dates Dr. Blue Lambert MD Primary care physician Active Start: February 13, 2025 End: February 13, 2025 Dr. Blue Lambert MD Referring Provider Active Start: February 13, 2025 End: February 13, 2025 CHRISTINA Pike Attending physician Active S tart: February 13, 2025 End: February 13, 2025 Team Status: Inactive Member Role/Relationship Status Dates Dr. Blue Lambert MD Primary care physician Active Start: February 13, 2025 End: February 13, 2025 CHRISTINA Pike Attending physician Active S tart: February 13, 2025 End: February 13, 2025 CHRISTINA Pike Referring Provider Active St art: February 13, 2025 End: February 13, 2025 Team Status: Inactive Member Role/Relationship Status Dates Dr. Blue Lambert MD Primary care physician Active Start: February 20, 2025 End: February 20, 2025 CHRISTINA Pike Nurse Practitioner Active St art: February 20, 2025 End: February 20, 2025 Abena Cardenas WASHING TUB OPERATOR, WASHING TUB OPERATOR-C Attending physician Active Start: February 20, 2025 End: February 20, 2025 Abena Cardenas NP, WASHING TUB OPERATOR-C Referring Provider Active Start: February 20, 2025 End: February 20, 2025 Team Status: Inactive Member Role/Relationship Status Dates Dr. Blue Lambert MD Primary care physician Active Start: February 28, 2025 End: February 28, 2025 CHRISTINA Pike Attending physician Active S tart: February 28, 2025 End: February 28, 2025 CHRISTINA Pike Referring Provider Active St art: February 28, 2025 End: February 28, 2025 FOR RECORDS PERTAINING TO PATIENTS WHO ARE [...] BE BASED ON THE PRIMARY CLINICAL RECORDS. [facility] [employer] [facility]. provides no warranty or guarantee of the accuracy or completeness of information in this document.
[2025-03-16 11:05] LABS: Hematocrit 33.6 % (37-47); Hemoglobin 11.6 g/dL (12.0-15.0); Immature Granulocytes Count 0.020 X10^3/uL (0.0-0.0); Mean Corp Hgb Conc 34.5 g/dL (32-36); Mean Corpuscular Volume 104.7 fL (81-99); Mean Platelet Vol. 11.0 fl (6.2-12.0); NRBC Flagged by Analyzer 0.4 % (0-5); POSITIVE MORPHOLOGY YES; Platelet Count 218 K/mm3 (150-450); RBC Distribution Width CV 29.9 % (11.6-14.6); Red Blood Count 3.21 M/mm3 (4.2-5.4); White Blood Count 6.9 K/mm3 (4.4-11.0)
[2025-03-16 11:07] LABS: Differential Indicated SCAN CRITERIA MET; RBC Distribution Width SD 109.3 fl (35.1-43.9)
[2025-03-16 11:26] LABS: Differential Comment SCANNED
[2025-03-16 11:27] LABS: Target Cells 1+
[2025-03-16 11:28] LABS: Anisocytosis 2+; Macrocytosis 1+
[2025-03-16 11:29] LABS: Polychromasia RARE; Schistocytes RARE
[2025-03-16 11:53] LABS: Anion Gap 12 (5-15); BUN 26 mg/dL (4-19); BUN/Creat Ratio 24.5 RATIO (10-20); Calcium,Total 9.1 mg/dL (7.6-11.0); Carbon Dioxide 27.4 mmol/L (21.0-32.0); Chloride 99 mmol/L (98-108); Glucose 231 mg/dL (70-99); Potassium 4.4 mmol/L (3.3-5.1)
== END | disposition home or self-care (01) ==
LOC: LAB 09:05
PROVIDERS: PCP Family Medicine; Referring Provider Student in an Organized Health Care Education/Training Program; Visit Provider Student in an Organized Health Care Education/Training Program
DX: I50.31 Acute diastolic (congestive) heart failure (principal); D64.9 Anemia, unspecified
CPT/HCPCS: 36415; 80048; 85025

== ENCOUNTER → 2025-03-26 | Outpatient (CLI) | payer MEDICARE, OTHER, SELFPAY ==
[2025-03-26 13:15] LABS: Anion Gap 9 (5-15); BUN 21 mg/dL (4-19); BUN/Creat Ratio 24.4 RATIO (10-20); Calcium,Total 8.9 mg/dL (7.6-11.0); Carbon Dioxide 26.4 mmol/L (21.0-32.0); Chloride 103 mmol/L (98-108); Glucose 113 mg/dL (70-99); Potassium 4.5 mmol/L (3.3-5.1)
== END | disposition home or self-care (01) ==
LOC: LAB 11:52
PROVIDERS: PCP Family Medicine; Referring Provider Student in an Organized Health Care Education/Training Program; Visit Provider Student in an Organized Health Care Education/Training Program
DX: I50.31 Acute diastolic (congestive) heart failure (principal)
CPT/HCPCS: 36415; 80048

== ENCOUNTER → 2025-04-03 | Outpatient (CLI) | payer MEDICARE, OTHER, SELFPAY ==
[2025-04-03 18:06] LABS: Hematocrit 31.6 % (37-47); Hemoglobin 10.9 g/dL (12.0-15.0); Immature Granulocytes Count 0.030 X10^3/uL (0.0-0.0); Mean Corp Hgb Conc 34.5 g/dL (32-36); Mean Corpuscular Volume 102.6 fL (81-99); Mean Platelet Vol. 11.1 fl (6.2-12.0); NRBC Flagged by Analyzer 1.1 % (0-5); POSITIVE MORPHOLOGY YES; Platelet Count 249 K/mm3 (150-450); RBC Distribution Width CV 30.3 % (11.6-14.6); Red Blood Count 3.08 M/mm3 (4.2-5.4); White Blood Count 7.0 K/mm3 (4.4-11.0)
[2025-04-03 18:25] LABS: RBC Distribution Width SD 108.2 fl (35.1-43.9)
[2025-04-03 18:26] LABS: Differential Indicated SCAN CRITERIA MET
[2025-04-03 18:45] LABS: Magnesium 2.4 mg/dL (1.5-2.2); Vitamin B12 1437 pg/mL (180-914); Vitamin D,25 Hydroxy 44.2 ng/mL (30-100)
[2025-04-03 18:51] LABS: AST(SGOT) 26 U/L (<=31); Alanine Aminotransfer ALT/SGPT 20 U/L (<=34); Albumin, Serum 4.1 g/dL (3.4-4.8); Alkaline Phosphatase 132 U/L (35-104); Anion Gap 13 (5-15); BUN 20 mg/dL (4-19); BUN/Creat Ratio 21.0 RATIO (10-20); Bilirubin, Direct 1.83 mg/dL (0.00-0.30); Calcium,Total 9.1 mg/dL (7.6-11.0); Carbon Dioxide 26.0 mmol/L (21.0-32.0); Chloride 101 mmol/L (98-108); Globulin 1.6 g/dL (2.2-4.2); Glucose 110 mg/dL (70-99); Potassium 3.7 mmol/L (3.3-5.1)
[2025-04-03 21:33] LABS: Differential Comment SCANNED
[2025-04-03 21:35] LABS: Anisocytosis 2+; Hypochromasia 1+; Polychromasia 1+
[2025-04-03 21:36] LABS: Target Cells 1+
[2025-04-05 10:00] LABS: Ferritin 545 ng/mL (22-378)
[2025-04-05 10:07] LABS: Iron 211 ug/dL (50-170); Iron Binding Capacity,Unsat < 17 ug/dL (228-428)
== END | disposition home or self-care (01) ==
LOC: MTLAB 14:47
PROVIDERS: PCP Family Medicine; Referring Provider Family Medicine; Visit Provider Family Medicine
DX: R82.81 Pyuria (principal); I48.91 Unspecified atrial fibrillation; R73.02 Impaired glucose tolerance (oral); D64.9 Anemia, unspecified; E80.6 Other disorders of bilirubin metabolism; E03.8 Other specified hypothyroidism; M85.80 Other specified disorders of bone density and structure, unspecified site; E55.9 Vitamin D deficiency, unspecified
CPT/HCPCS: 36415; 80048; 80076; 80162; 82306; 82607; 82728; 83036; 83540; 83550; 83735; 84439; 84443; 85025

== ENCOUNTER → 2025-04-04 | Outpatient (CLI) | payer MEDICARE, OTHER, SELFPAY ==
[2025-04-04 09:27] LABS: Mucous, Urine 0 SEEN /hpf (<or=2+); Red Blood Cells-Urine 0 SEEN /hpf (0-5); Squamous Epithelial Cells - UA 0 SEEN /hpf (5-10)
[2025-04-04 10:19] LABS: Color, Urine Yellow (Yellow); Glucose, Dipstick 250 mg/dl (Normal); Ketone-Dipstick Negative (Negative); Leukocyte Esterase-Dipstick 500 /ul (Negative); Nitrite-Dipstick Negative (Negative); Occult Blood-Urine 250 /ul (Negative); Protein-Dipstick 100 mg/dl (Negative); Specific Gravity, Urine 1.030 (1.002-1.030); Urine Bilirubin Dipstick Negative (Negative)
== END | disposition home or self-care (01) ==
LOC: MTLAB 09:12
PROVIDERS: PCP Family Medicine; Referring Provider Family Medicine; Visit Provider Family Medicine
DX: I10 Essential (primary) hypertension (principal); R82.81 Pyuria
CPT/HCPCS: 81001; 87077; 87086; 87088; 87186

== ENCOUNTER → 2025-04-12 | Outpatient (CLI) | payer MEDICARE, OTHER, SELFPAY ==
[2025-04-12 11:12] LABS: Hematocrit 30.1 % (37-47); Hemoglobin 10.3 g/dL (12.0-15.0); Immature Granulocytes Count 0.040 X10^3/uL (0.0-0.0); Mean Corp Hgb Conc 34.2 g/dL (32-36); Mean Corpuscular Volume 104.9 fL (81-99); Mean Platelet Vol. 10.5 fl (6.2-12.0); NRBC Flagged by Analyzer 1.1 % (0-5); POSITIVE MORPHOLOGY YES; Platelet Count 234 K/mm3 (150-450); RBC Distribution Width CV 31.4 % (11.6-14.6); Red Blood Count 2.87 M/mm3 (4.2-5.4); White Blood Count 6.4 K/mm3 (4.4-11.0)
[2025-04-12 11:13] LABS: RBC Distribution Width SD 117.0 fl (35.1-43.9)
[2025-04-12 11:14] LABS: Differential Indicated SCAN CRITERIA MET
[2025-04-12 11:41] LABS: Anisocytosis 2+
== END | disposition home or self-care (01) ==
LOC: LAB 09:52
PROVIDERS: PCP Family Medicine; Referring Provider Student in an Organized Health Care Education/Training Program; Visit Provider Student in an Organized Health Care Education/Training Program
DX: I48.91 Unspecified atrial fibrillation (principal)
CPT/HCPCS: 36415; 85025

== ENCOUNTER → 2025-05-13 | Outpatient (CLI) | payer MEDICARE, OTHER, SELFPAY ==
[2025-05-13 12:30] LABS: Hematocrit 33.4 % (37-47); Hemoglobin 12.0 g/dL (12.0-15.0); Immature Granulocytes Count 0.020 X10^3/uL (0.0-0.0); Mean Corp Hgb Conc 35.9 g/dL (32-36); Mean Corpuscular Volume 103.1 fL (81-99); Mean Platelet Vol. 10.1 fl (6.2-12.0); NRBC Flagged by Analyzer 0.3 % (0-5); POSITIVE MORPHOLOGY YES; Platelet Count 204 K/mm3 (150-450); RBC Distribution Width CV 31.0 % (11.6-14.6); Red Blood Count 3.24 M/mm3 (4.2-5.4); White Blood Count 6.9 K/mm3 (4.4-11.0)
[2025-05-13 12:31] LABS: Differential Indicated SCAN CRITERIA MET; RBC Distribution Width SD 112.5 fl (35.1-43.9)
[2025-05-13 12:59] LABS: Anion Gap 12 (5-15); BUN 13 mg/dL (4-19); BUN/Creat Ratio 14.9 RATIO (10-20); Calcium,Total 9.3 mg/dL (7.6-11.0); Carbon Dioxide 25.8 mmol/L (21.0-32.0); Chloride 101 mmol/L (98-108); Glucose 107 mg/dL (70-99); Potassium 3.9 mmol/L (3.3-5.1)
[2025-05-13 13:10] LABS: Differential Comment SCANNED
[2025-05-13 13:11] LABS: Anisocytosis 3+; Hypochromasia 3+; Target Cells 3+
== END | disposition home or self-care (01) ==
LOC: LAB 11:43
PROVIDERS: PCP Family Medicine; Referring Provider Student in an Organized Health Care Education/Training Program; Visit Provider Student in an Organized Health Care Education/Training Program
DX: D64.9 Anemia, unspecified (principal); R60.0 Localized edema
CPT/HCPCS: 36415; 80048; 85025